=== PATIENT | female | born 1960 | race Caucasian/White ===

== ENCOUNTER 2023-11-12 12:39 | Outpatient (CLI) | payer MEDICARE, SELFPAY ==
[2023-11-12 18:18] LABS: Basophils Absolute Auto 0.1 K/mm3 (0.0-0.1); Basophils Percent Auto 0.7 % (0.2-1.2); Eosinophils Absolute Auto 0.2 K/mm3 (0-0.3); Eosinophils Percent Auto 1.8 % (0-4.4); Hematocrit 47.5 % (37.0-47.0); Hemoglobin 15.1 g/dL (12.0-15.0); Immature Granulocyte Absolute 0.02 K/mm3 (0.00-0.031); Immature Granulocyte Percent A 0.2 % (0-0.5); Lymphocytes Absolute Auto 2.31 K/mm3 (0.9-3.2); Lymphocytes Percent Auto 27.2 % (18.3-44.2); Mean Corpuscular HGB Conc 31.8 g/dl (32-36); Mean Corpuscular Hemoglobin 29.4 pg (26-34); Mean Corpuscular Volume 92.4 fl (80-100); Mean Platelet Volume 9.1 fl (7.4-10.4); Monocytes Absolute Auto 0.8 K/mm3 (0.1-0.6); Monocytes Percent Auto 9.2 % (2.6-8.5); Neutrophils Absolute Auto 5.2 K/mm3 (1.3-6.7); Neutrophils Percent Auto 60.9 % (45.5-73.1); Platelet Count Result 383 k/mm3 (150-375); Red Blood Count 5.14 M/mm3 (4.2-5.4); White Blood Count 8.5 K/mm3 (4.5-10.0)
[2023-11-12 18:43] LABS: Alanine Aminotransferase 11 U/L (6-35); Albumin Level 4.5 g/dL (3.5-5.1); Alkaline Phosphatase 86 U/L (38-126); Anion Gap 4 mmol/L (8-16); Aspartate Amino Transferase 37 U/L (14-36); Bilirubin,Total 0.4 mg/dL (0.2-1.3); Blood Urea Nitrogen 7 mg/dL (7-17); Calcium 9.5 mg/dL (8.4-10.2); Carbon Dioxide 30 mmol/L (22-30); Chloride 102 mmol/L (98-107); Cholesterol 249 mg/dL (0-200); Estimated Glomerular Filt Rate > 60; Glucose 91 mg/dL (65-110); HDL Direct 53 mg/dL; Potassium 4.3 mmol/L (3.4-5.0); Sodium 136 mmol/L (137-145); Triglycerides 159 mg/dL (<150)
[2023-11-12 18:54] LABS: LDL Cholesterol Direct 153 mg/dL
== END 2023-11-12 12:40 | disposition home or self-care (01) ==
LOC: ANHGOSHLAB 12:41
PROVIDERS: PCP Emergency Medicine; Visit Provider Emergency Medicine
DX: I10 Essential (primary) hypertension (principal); Z72.0 Tobacco use
CPT/HCPCS: 36415; 80053; 80061; 85025

== ENCOUNTER 2023-12-06 12:59 | Outpatient (CLI) | payer MEDICARE, SELFPAY ==
--- NOTE | ~2023-12-06 | MMUS_ITS ---
EXAMINATION: MM diagnostic karan BI w tomasa, US breast RT limited HISTORY: Right breast lump and inframammary fold TECHNIQUE: Additional 3-D tomosynthesis images of the breasts were performed and synthetic 2-D images were generated. CAD analysis was submitted and interpreted. High resolution Limited right breast ult rasound was performed. COMPARISON: No prior studies for comparison. BREAST PARENCHYMAL COMPOSITION: Not dense: There are scattered areas of fibroglandular density. FINDINGS: MAMMOGRAPHIC FINDINGS: There is a mass at the inframammary fold inferiorly in the right breast on MLO view and mediolateral view. There is thickening of the adjacent skin with traction of the skin surface. ULTRASOUND: Limited right breast ultrasound: In the area of palpable concern at 5:00, 7 cm from the nipple is a s lightly irregular shaped hypoechoic mass measuring 1.7 x 1.7 x 1.4 cm with internal vascularity and m ixed posterior attenuation. IMPRESSION: 1. Abnormal 1.7 cm right breast mass at 5:00, 6 cm from the nipple corresponding to the mammographic and palpable abnormality. 2. Ultrasound-guided right breast biopsy recommended. BI-RADS category 4, suspicious findings. Reviewed, dictated and finalized at location A. IMPRESSION: 1. Abnormal 1.7 cm right breast mass at 5:00, 6 cm from the nipple correspondin g to the mammographic and palpable abnormality. 2. Ultrasound-guided right breast biopsy recommended. BI-RADS category 4, suspicious findings.
== END 2023-12-06 13:00 | disposition home or self-care (01) ==
LOC: ANHIMG 13:00
PROVIDERS: PCP Emergency Medicine; Visit Provider Emergency Medicine
DX: N63.14 Unspecified lump in the right breast, lower inner quadrant (principal); R92.8 Other abnormal and inconclusive findings on diagnostic imaging of breast
CPT/HCPCS: 76642; 77062; 77066; G0279

== ENCOUNTER 2023-12-09 10:01 | Outpatient (CLI) | payer MEDICARE, SELFPAY ==
--- NOTE | ~2023-12-09 | CT_ITS ---
CT Scan of the Chest without Contrast: Clinical Indication: Lung cancer screening, nicotine dependence Technique: Contiguous sections were acquired throughout the chest without intravenous contrast. Dose reduction technique was used on this scan by utilizing automated exposure control and iterative recon struction technique. The dose-length product (DLP) was 79.41 mGy-cm. Findings: There is no evidence of any significant mediastinal, hilar or axillary lymphadenopathy. The mediastin al soft tissues appear normal. Minimal pericardial effusion noted. No pleural effusions. There is a 1.8 cm nodule in the left upper lobe (axial image 26). Right lung clear. Images through the upper abdomen reveal no abnormalities. Impression: Lung RADS 4B: Very suspicious. Tissue sampling of 1.8 cm left upper lobe pulmonary nodule recommended to establish histologic diagnosis. Case discussed with nurse logan Vega at the time of this reading. Reviewed, dictated and finalized at [facility]. Impression: Lung RADS 4B: Very suspicious. Tissue sampling of 1.8 cm left upper lobe pulmon josselyn nodule recommended to establish histologic diagnosis. Case discussed with nurse logan Vega at the time of this reading.
== END 2023-12-09 10:02 ==
PROVIDERS: PCP Emergency Medicine; Visit Provider Emergency Medicine
DX: Z12.2 Encounter for screening for malignant neoplasm of respiratory organs (principal); Z87.891 Personal history of nicotine dependence
CPT/HCPCS: 71271

== ENCOUNTER → 2023-12-10 11:38 | Outpatient (REF) | payer MEDICARE, SELFPAY | LOC: ANHLAB 11:38 | PROVIDERS: PCP Emergency Medicine; Visit Provider Surgery | DX: N63.10 Unspecified lump in the right breast, unspecified quadrant (principal) | CPT/HCPCS: 88305; 88342; 88360 ==

== ENCOUNTER 2023-12-19 09:03 | Outpatient (CLI) | payer MEDICARE, SELFPAY ==
[2023-12-13 14:21] VITALS: BMI 25.0
--- NOTE | 2023-12-13 14:22 | PC.NURSE ---
Pre Radiology instructions Report to the outpatient [facility] on date __12/19/23___ at time __0900 for procedure Time: _1100__ YOU MAY BE MONITORED AT HOSPITAL FOR UP TO 4 HOURS AFTER YOUR PROCEDURE. A visitor will be allowed to accompany the patient into the hospital. You and your visitor will be asked to self-screen and do not enter if you have any COVID symptoms. A mask is OPTIONAL within the hospital. Patients are to have no food or drink 6 hours prior to procedure time (0500 AM) Driving will be restricted after the procedure, you must have a person to drive you home. Labs will be drawn in preop area and once reviewed, you will be taken to radiology area for procedure. When the procedure is completed, you will be taken to outpatient where you will be monitored for several hours. You may have one visitor in this area. Other than holding anti-coagulants, patient may take other medication(s) as scheduled. Prior to your appointment date patients are instructed to hold anti-coagulants after discussing with ordering provider to stop. If unable to discontinue anti-coagulants please notify radiologist. ? No aspirin or warfarin (Coumadin) for 7 days prior to the procedure. ? No clopidogrel (Plavix), ticagrelor (Brilinta), prasugrel (Effient) or dabigatran (Pradaxa) for 5 days prior to the procedure. ? No rivaroxaban (Xarelto), apixaban (Eliquis), dipyridamole (Aggrenox or Persantine) or cilostazol (Pletal) for 2 days prior to the procedure. Medications to discontinue per physician: ___N/A Date to take last dose: Please leave all valuables, including medications, at home the day of procedure. The hospital will not accept responsibility for valuables. Wear comfortable, loose fitting clothing.? Follow any additional instructions given to you from ordering provider. Telephone instructions given to _PT'S GRANDDAUGHTER - (DOUG) _and asked if any additional questions and then verbalized understanding. Patient advised to call scheduling provider office or registration scheduling [phone] if any additional questions.
[2023-12-19] VITALS (11 sets, daily range): BP systolic 107–149; BP diastolic 61–94; PULSE 59–77; RESP 14–16; TEMP 36.8; O2SAT 95–100
--- NOTE | ~2023-12-19 | XR_ITS ---
XR chest 1V portable 12/19/2023 15:01 Indication: Post image guided lung biopsy Procedure: AP portable chest Comparison: Comparison to multiple prior studies sequentially, with oldest reviewed study dated 12/18. Findings: Left upper lobe mass overlies the left hilum, consistent with previously biopsied abnormali ty. No pneumothorax identified post biopsy. No acute focal airspace disease. Healed right rib fractur es. Impression: 1: No acute cardiopulmonary disease. No significant change. Reviewed, dictated and finalized at location B. Impression: 1: No acute cardiopulmonary disease. No significant change.
--- NOTE | ~2023-12-19 | XR_ITS ---
EXAMINATION: XR chest 1V portable 12/19/2023 13:17 INDICATION: Post lung biopsy. PROCEDURE: AP portable chest COMPARISON: 12/19/2023 FINDINGS: The lungs are clear. The cardiomediastinal silhouette is within normal limits. There are no pleural effusions. There is no pneumothorax suspected. IMPRESSION: 1: NO ACUTE CARDIOPULMONARY DISEASE. Reviewed, dictated and finalized at location B.
--- NOTE | ~2023-12-19 | CT_ITS ---
EXAMINATION: CT biopsy lung w/imaging DATE: 12/19/2023 12:03 INDICATION: Left upper lobe nodule TECHNIQUE: The procedure including the risks and benefits was discussed with the patient. Risks discu ssed included infection, approximately 1/20 risk of symptomatic hemorrhage beyond mild hemoptysis, ap proximately 1/3 risk of pneumothorax, and approximately 1/10 risk of pneumothorax severe enough to wa rrant chest tube placement. The patient understood the risks and agreed to proceed. The patient was p laced prone. The skin overlying the left posterior upper thorax was prepped and draped in sterile fa shion. Anesthetic was administered with 1% lidocaine subcutaneously. A 19 gauge outer needle was ad vanced under CT guidance to the lesion of interest. A 20 gauge core biopsy needle was then used to ob tain 3 core biopsy specimens. The needle was removed and the entry site was cleaned and dressed. The re were no immediate complications. The dose-length product was 160.27 mGy-cm. FINDINGS: CT images demonstrate the outer needle tip adjacent to an the biopsy needle extending throu gh a 1.9 cm left upper lobe nodule. IMPRESSION: 1. Successful CT-guided biopsy of a 1.9 cm left upper lobe nodule. Reviewed, dictated and finalized at location A.
--- NOTE | ~2023-12-19 | XR_ITS ---
EXAMINATION: XR chest 1V DATE: 12/19/2023 12:05 INDICATION: Status post percutaneous left upper lobe biopsy TECHNIQUE: frontal view of the chest was obtained. COMPARISON: CT dated 12/09/2023 FINDINGS: The biopsied left upper lobe mass projects partially over the aortic arch. No other airspace opacitie s, pulmonary edema, pleural effusion or pneumothorax. The cardiomediastinal silhouette is normal. A f ew old healed bilateral rib fractures. IMPRESSION: 1. No pneumothorax or pleural effusion post percutaneous biopsy of a left upper lobe mass which is co ncerning for primary bronchogenic carcinoma. Reviewed, dictated and finalized at location A. IMPRESSION: 1. No pneumothorax or pleural effusion post percutaneous biopsy of a left upper lobe mass which is concerning for primary bronchogenic carcinoma.
[2023-12-19 09:57] LABS: Mean Platelet Volume 8.8 fl (7.4-10.4); Platelet Count Result 384 k/mm3 (150-375)
[2023-12-19 10:09] LABS: INR 0.9; Prothrombin Time 12.4 Seconds (11.1-14.7)
== END 2023-12-19 15:45 | disposition home or self-care (01) ==
PROVIDERS: PCP Emergency Medicine; Referring Provider Surgery; Visit Provider Radiology Diagnostic Radiology
PROC: BB24ZZZ Computerized Tomography (CT Scan) of Bilateral Lungs (ICD-10-PCS; CPT 32408; principal; 2023-12-19 11:00)
DX: R91.8 Other nonspecific abnormal finding of lung field (principal); C34.12 Malignant neoplasm of upper lobe, left bronchus or lung; Z01.818 Encounter for other preprocedural examination
CPT/HCPCS: 32408; 36415; 71045; 85049; 85610; 88305

== ENCOUNTER 2023-12-25 01:24 | Day surgery (SDC) | payer MEDICARE, SELFPAY ==
--- NOTE | 2023-12-23 13:08 | PC.NURSE ---
Report to the Outpatient Waiting Room, entrance under the green pavilion located off [facility], at time __1000 on date _12/25/23 . Planned Procedure Time:1200 . Time changes happen often and if your time is changed the preop area will call you the afternoon before. - You and your visitor will be asked to self-screen and do not enter if you have any COVID symptoms. - A mask is optional within the hospital at this time. Patients may have clear liquids (water, carbonated beverages, clear teas, apple juice) until 3 hours prior to surgery( 9:00AM) with a maximum of 20 ounces. - No food from midnight until time of surgery - Infants may have breast milk until 4 hours before surgery, formula 6 hours prior to surgery. - Children will be allowed to drink immediately following surgery. If applicable, please bring a bottle or sippy cup to assist with drinking. Juice, water, soda, and popsicles are readily available. For infants on formula, please bring formula the day of surgery. Pacifiers are allowed. Take the following medications with a SIP of water the morning of surgery: ____NONE DO NOT STOP ANY OF YOUR OTHER PRESCRIPTION MEDICATIONS PRIOR TO SURGERY ?EXCEPT THE FOLLOWING Medications to discontinue per physician NONE Date to take last dose Please no make-up, nail ukrainian, hairspray, perfume, deodorant, or body powder the day of surgery. No jewelry (including any body piercings) or valuables the day of surgery, leave them at home. Please take a shower or bath the night before, or the morning of, surgery with an antibacterial soap. Wear comfortable, loose fitting clothing. Children are encouraged to wear pajamas. - Jewelry must be removed prior to entering the operating room. Rings and piercings that are not removed may be cut off. - The hospital will not accept responsibility for valuables. - Please leave all valuables, including medications, at home the day of surgery. If you are going home after surgery, a licensed telephone directory distributor driver must drive you home. - NO public transportation without another adult if you receive anesthesia. - We recommend that an adult stay with you for 24 hours following discharge. - We also recommend that you do not drive, make important decision, drink alcoholic beverages, or take any drugs that were not prescribed by your health care provider for at least 24 hours after your discharge time. For Pediatric surgeries, we recommend two adults accompany the child home. Follow any additional instructions given to you from your surgeon. If you or anyone in your household have experienced Covid symptoms in the past week, please notify your surgeon or the nurse liaison at the phone number below for possible testing. Telephone instructions given to __GRANDDAUGHTER DOUG CROWE and asked if any additional questions and then verbalized understanding. Patient advised to call surgeon office or pre surgery nurse liaison [phone] if any additional questions.
[2023-12-23 13:12] VITALS: BMI 24.9
--- NOTE | ~2023-12-25 | XR_ITS ---
EXAMINATION: XR fl guide central line place DATE: 12/25/2023 12:43 INDICATION: Port placement. TECHNIQUE: A single intraoperative fluoroscopic view of the chest was obtained. I was not present. Fl uoroscopy exposure time was 12 seconds. COMPARISON: Chest single view 12/19/2023 FINDINGS: There is a right internal jugular port with tip in the superior vena cava. There are old he aled right rib fractures. IMPRESSION: 1. Poor tip in the superior vena cava. Reviewed, dictated and finalized at location A.
--- NOTE | ~2023-12-25 | XR_ITS ---
EXAMINATION: XR chest port-a-cath/central DATE: 12/25/2023 12:59 INDICATION: Port placement. TECHNIQUE: A single frontal view of the chest was obtained. COMPARISON: Chest view 12/19/2023 FINDINGS: There is no pneumonia, pleural effusion, or pneumothorax. The heart size is normal. There a re old healed right rib fractures. There is a right internal jugular port with tip in superior vena c elma. IMPRESSION: 1. Port tip in superior vena cava. Reviewed, dictated and finalized at location A.
--- NOTE | 2023-12-25 09:22 | PM.IMHP ---
H&P: HPI History of Present Illness Date/Time: 12/25/23 09:22 Chief Complaint: metastatic left lung cancer Narrative: Pt is a 63 y/o F presenting to hospital for port placement. Pt c recently dx'd L lung cancer c known mets to R breast, lymph nodes. Pt is still undergoing workup including PET and oncology appt this wk. Pt denies any previous central venous catheterization. Review of Systems Review of Systems: All systems reviewed & are unremarkable except as noted in HPI and below PMFSH Past Medical History Medical History Appendix abscess Asthma Gallstone Surgical History Surgical History H/O hysterectomy for benign disease Family History Family History Father Alcoholism Mother Cirrhosis Sibling Cancer Diabetes mellitus Depression Heart disease Social History Social History Social History: caffeine- coffee 10 tea 1/2 gallon soda 1 can Smoking packs per day: 1 Smoking cigarettes per day: 20.0 Years smoked: 50 Smoking pack-years: 50.00 Smoking status: Former smoker Tobacco type: cigarettes Second hand tobacco smoke exposure: No Alcohol intake: never Substance use: current Substance use type: marijuana Last use: 12/22/23 Do You Feel Safe in your Home?: Yes Lack of Transportation: No Lack of Food: Never True Current Housing: I Have Housing Concerned About Future Housing: No Difficulty Paying Gas/Electric Bills: No Difficulty Paying for Meds: No Currently Unemployed: No Education: High School Diploma/GED Difficulty w/ Childcare or Family Care: No Living arrangements: with family Occupation/Education: retired Gender identity (if verbalized by the patient): Female Sexual Orientation (if Verbalized by the Patient): Straight or Heterosexual Spiritual care concerns: No Meds Home Medications and Allergies Home Medications Medication Instructions Recorded Confirmed Type losartan 100 mg tablet 100 mg PO DAILY #90 tabs 12/04/23 12/24/23 Rx aspirin 81 mg tablet,delayed 81 mg PO HS 12/23/23 12/24/23 History release (Adult Low Dose Aspirin) Allergies Allergy/AdvReac Type Severity Reaction Status Date / Time No Known Allergies Allergy Verified 12/24/23 15:27 Exam Const: General: cooperative, comfortable and no acute distress HENMT: Head: normal to inspection, normocephalic and atraumatic Eyes: General: appearance normal, both eyes and all related structures Neck: Neck: normal visual inspection and full ROM Resp: Auscultation: diminished lung sounds Cardio: Rate: regular rate Rhythm: regular rhythm GI: Inspection: normal to inspection and non-distended GI Palp: No abdominal tenderness and Yes Soft to palpation Assessment and Plan Assessment and plan (1) Adenocarcinoma of left lung, stage 4: Code(s): C34.92 - Malignant neoplasm of unspecified part of left bronchus or lung Status: Acute Assessment and Plan: will setup for port placement, will need PET and oncology f/u
[2023-12-25 11:02] VITALS: BMI 24.7
[2023-12-25 11:05] VITALS: BP 156/71; PULSE 57; RESP 16; TEMP 36.1; O2SAT 98
[2023-12-25] MEDS: LACTATED RINGERS 1,000 ML 30 ML IV CONT (11:20)
--- NOTE | 2023-12-25 11:28 | WPDHPUPDATE1 ---
History and Physical Update Update Date/Time: 12/25/23 11:28 History and Physical has been reviewed, including an updated exam of the patient. There are NO changes in the patient's condition. Risks, benefits, and alternatives have been discussed and questions answered. Patient agrees to proceed with procedure.
[2023-12-25] MEDS: KETOROLAC 15 MG/ML VIAL (*BKC) IV PUSH (11:32)
--- NOTE | 2023-12-25 11:35 | P.PNAN_ITS ---
Anes - Initial Pre Proc Eval Procedure: Operation Date: 12/25/23 12:00 Proposed Procedures p Insertion Corinne Cath - Leila Forman MD Date/Time: 12/25/23 11:35 Surgeon: Leila Forman MD Pre Op Diagnosis: malignant neoplasm of lung unspecified laterality Patient Data Age: 63 Gender: F Height: 1.55 m Weight: 59.9 kg Allergies Allergy/AdvReac Type Severity Reaction Status Date / Time No Known Allergies Allergy Verified 12/25/23 11:33 Home Medications Medication Instructions Recorded Confirmed Type losartan 100 mg tablet 100 mg PO DAILY #90 tabs 12/04/23 12/24/23 Rx aspirin 81 mg tablet,delayed 81 mg PO HS 12/23/23 12/24/23 History release (Adult Low Dose Aspirin) Laboratory Tests 12/25/23 11:23 APTT Pending Patient hx anesthesia problems: none Family hx anesthesia problems: none Results Review: All pre-operative results and documents have been reviewed as part of the pre- operative evaluation. [facility] Past Medical History Medical History Appendix abscess Asthma Gallstone Surgical History Surgical History H/O hysterectomy for benign disease Family History Family History Father Alcoholism Mother Cirrhosis Sibling Cancer Diabetes mellitus Depression Heart disease Social History Social History Social History: caffeine- coffee 10 tea 1/2 gallon soda 1 can Smoking packs per day: 1 Smoking cigarettes per day: 20.0 Years smoked: 50 Smoking pack-years: 50.00 Smoking status: Former smoker Tobacco type: cigarettes Second hand tobacco smoke exposure: No Alcohol intake: never Substance use: current Substance use type: marijuana Last use: 12/22/23 Do You Feel Safe in your Home?: Yes Lack of Transportation: No Lack of Food: Never True Current Housing: I Have Housing Concerned About Future Housing: No Difficulty Paying Gas/Electric Bills: No Difficulty Paying for Meds: No Currently Unemployed: No Education: High School Diploma/GED Difficulty w/ Childcare or Family Care: No Living arrangements: with family Occupation/Education: retired Gender identity (if verbalized by the patient): Female Sexual Orientation (if Verbalized by the Patient): Straight or Heterosexual Spiritual care concerns: No Anes - Eval Final PreProcedure Day of Procedure 12/25/23 11:35 Patient weight: normal Heart: regular rate and rhythm Lungs: clear to auscultation Airway: Mallampati scale class II Neurological: alert and oriented Last oral intake: >/= 8 hours ASA classification: III Emergent: no Anesthetic plan: proceed Anesthesia type and monitoring: general GIVS and standard monitoring Results Review: All pre-operative results and documents have been reviewed as part of the pre- operative evaluation. Informed Consent: The patient's anesthetic plan and its attendant risks and benefits were discussed with the patient/family/POA. Questions were solicited and answers provided to the satisfaction of the patient/fa
[2023-12-25 11:47] LABS: Partial Thromboplastin Time 27.7 Seconds (22.3-36.8)
[2023-12-25] MEDS: ceFAZolin 2 GM/D5W 50 ML 2 GM/50 ML BAG IVPB (11:59)
[2023-12-25] MEDS: HEPARIN SODIUM 5,000 UNITS/ML VIAL 5000 UNITS IRRIGATION (12:29)
[2023-12-25] MEDS: HEPARIN SODIUM, PORCINE 10,000 UNITS/10 ML VIAL 5000 UNITS IV PUSH (12:30)
[2023-12-25] MEDS: BUPIVACAINE/EPINEPHRINE 0.5% 30 ML VIAL 20 ML INFILTRATE (12:32)
--- NOTE | 2023-12-25 12:42 | P.OP_ITS ---
Procedure Note - Detailed Date of Procedure 12/25/23 Pre-op Diagnosis Metastatic left lung cancer Post-op Diagnosis Same Procedure Performed placement of right internal jugular venous access device under both ultrasound and fluroscopic guidance Surgeon Leila Forman MD Anesthesia MAC and Local Indications 63-year-old female presenting with metastatic left lung cancer needing access for chemotherapy Findings 1st stick right IJ under ultrasound guidance Description of Procedure Patient was brought into the operating room and placed in the supine position. After adequate induction of mac anesthesia, the patient was prepped and draped in normal sterile fashion. Time-out was then done to verify the patient's identity, as well as the procedure being performed. I used the ultrasound to gain access into the right internal jugular vein. Once access was gained, I placed the guidewire in the vein and confirmed proper positioning using fluoroscopy. I then locally anesthetized an area in the right chest. I then made an incision including making a subcutaneous pocket inferiorly to allow placement of the port itself. I proceeded to tunnel the catheter from the chest to the right neck insertion site. I then placed a dilating sheath over the guidewire into the right internal jugular vein via sterile Seldinger technique. This was once again done and confirmed via fluoroscopic guidance. I then re moved the dilator and the guidewire, now just leaving the sheath in the vein. I then fed the previously flushed catheter into the right internal jugular vein under fluoroscopic guidance. At approximately 22 cm, the catheter was noted to be near the atrial caval junction. I then peeled away the sheath, now just leaving the catheter in the vein. I then was able to easily draw and flush from the catheter. The catheter was cut to fit and attached to the port itself. The port was placed into the previously made subcutaneous pocket and sutured in with 0 Ethibond suture. Final fluoroscopic view showed the termination of the catheter at the atrial caval junction with a nice smooth curvature back to the port itself. I was able to gain access to the port with a Cramer needle and was able to easily draw and flush from the port. I then flushed 4 cc of a final heparin flush into the port. The incision was closed with 3 0 Vicryl suture in the subcutaneous tissue and the skin was closed with 4 O Monocryl subcuticular suture. Dermabond was then placed on wound. The patient tolerated the procedure well and will be sent to the recovery room in stable condition. Implants RIJ VAD Estimated Blood Loss 10 Pathology None sent Complications No immediate complications Condition Stable Disposition PACU [facility] Billing Surgery - Charge Forward: Surgery Billing
[2023-12-25 12:47] VITALS: BP 119/57; PULSE 53; RESP 12; O2SAT 98
[2023-12-25 13:20] VITALS: BP 136/57; PULSE 44; O2SAT 100
[2023-12-25 13:50] VITALS: BP 134/78; PULSE 51
== END 2023-12-25 14:06 | disposition home or self-care (01) ==
PROVIDERS: PCP Emergency Medicine; Visit Provider Surgery
PROC: (CPT 36561; principal; 2023-12-25 12:00)
DX: C34.92 Malignant neoplasm of unspecified part of left bronchus or lung (principal); C77.9 Secondary and unspecified malignant neoplasm of lymph node, unspecified; C79.81 Secondary malignant neoplasm of breast; Z87.891 Personal history of nicotine dependence; Z79.82 Long term (current) use of aspirin; F12.90 Cannabis use, unspecified, uncomplicated
CPT/HCPCS: 36561; 32408; 36415; 71045; 77001; 85049; 85610; 85730; 88305; C1788; J0690; J1644; J1885; J2250; J2704; J3010; J7030; J7120

== ENCOUNTER 2023-12-26 08:07 | Outpatient (CLI) | payer MEDICARE, SELFPAY ==
--- NOTE | ~2023-12-26 | MR_ITS ---
MRI of the brain Clinical History: Lung cancer Technique: Axial and sagittal T1-weighted images were acquired. These were followed by axial T2-weigh hilary, diffusion weighted, gradient, and FLAIR images. Following intravenous administration of 12 cc Mu ltiHance gadolinium, T1-weighted fat-sat imaging was performed in the axial and coronal planes. Findings: There is a 1 cm probable intra-axial enhancing mass at the superior left frontal lobe, para median location, mild surrounding vasogenic edema (coronal postcontrast image 10). No other significa nt abnormality seen in the remainder of the brain. No acute infarct or intracranial hemorrhage. Ventricles and subarachnoid spaces are unremarkable. Orbits are unremarkable. Paranasal sinuses and m astoid air cells are clear. Major intracranial flow voids are intact. Sagittal midline structures are intact. IMPRESSION: 1 cm probable metastasis in the superior paramedian left frontal lobe, as detailed above. Reviewed, dictated and finalized at [facility]. IMPRESSION: 1 cm probable metastasis in the superior paramedian left frontal lobe, as juan r led above.
--- NOTE | ~2023-12-26 | PE_ITS ---
EXAMINATION: PET skull to mid thigh DATE: 12/26/2023 11:11 INDICATION: Malignant neoplasm of lung TECHNIQUE: Blood glucose level was 95 mg/dL. 9.405 mCi of 18-fluorodeoxyglucose (18-FDG) was administ ered i.v. Low dose computed tomography (CT) images were acquired from the base of the brain to the pr oximal thighs for attenuation correction and anatomic localization. Positron emission tomography (PET ) images were acquired in the same distribution beginning 47 minutes after injection. Images includin g fused PET/CT images were reconstructed in axial, coronal, and sagittal planes. Automated exposure c ontrol technique was employed. The dose-length product was 677.29mGy-cm. COMPARISON: None FINDINGS: Head/neck: There is symmetric increased activity in the oral cavity and ocular muscles without CT correlate, lik ally physiologic. No pathologically enlarged cervical lymphadenopathy. Chest: Right internal jugular central venous port catheter with distal tip at the caudal superior vena cava. 2.0 cm FDG avid mass in the posterior segment of the left upper lobe with maximal SUV of 12.0. There is also increased FDG uptake with maximal SUV of 10.0 at the left hilum likely reflecting metastatic lymphadenopathy which is unable to be distinguished from the left hilar vasculature on noncontrast i maging. No other suspicious pulmonary nodules, pneumonia, pulmonary edema or pleural effusion. Heart size is normal. Atherosclerotic coronary artery calcific lesions. No pericardial effusion. No patholo gically enlarged or FDG avid mediastinal lymphadenopathy. 2.3 x 2.0 cm FDG avid subcutaneous mass with spiculated margins at the inner inferior quadrant of the right breast consistent with biopsy proven malignancy for which metastases from a lung primary was f avored on pathology report. There is increased FDG uptake associated with multiple right axillary lym ph nodes the largest measuring 2.0 x 1.2 cm with maximal SUV of 10.4. There is an additional 8 mm FDG avid nodule in the deeper tissues of the outer inferior quadrant of the left breast with maximal SUV of 4.5. Abdomen/pelvis/proximal thighs: 3.4 cm peripherally FDG avid, centrally photopenic and likely necrotic mass in segment IVb of the brendan er with maximal SUV of 7.9. There is an additional FDG avid mass measuring approximately 4 ccm extend ing between the region of the head of the pancreas and the dileep hepatis with maximal SUV of 12.2 the margins of which are also unable to be clearly distinguished from the surrounding vasculature, pancr eas and duodenum on noncontrast imaging. There are couple FDG avid masses in the spleen measuring apolinar roximately 1.5 cm in diameter on PET imaging but which are without correlate on the CT imaging. Bilat eral FDG avid adrenal masses measuring 1.7 cm with maximal SUV of 7.4 on the left and 1 cm with maxim al SUV of 5.5 on the right. Physiologic renal accumulation and excretion of FDG activity in the kidne ys, bladder and along portions of ureters. The gallbladder is not visualized and likely surgically a bsent. . Mild to moderate uptake scattered throughout the bowels without radiologic correlate, also l ikely physiologic. No other abnormal foci of increased FDG uptake or pathologically enlarged lymphade nopathy in the abdomen, pelvis or proximal thighs. Musculoskeletal: There are a few FDG avid bone lesions including at the base of the dens with maximal SUV of 11.1 and at T1 with maximal SUV of 7.7 and corresponding lytic lesion with likely pathologic compression fract ure on CT. Additional chronic T3 compression fracture without increased FDG uptake.. IMPRESSION: 1. FDG avid mass in the left upper lobe which based upon pathology from a recent percutaneous biopsy was favored to represent a primary lung cancer. 2. Multiple additional FDG avid masses including at the bilateral breasts, liver, spleen and bilatera l adrenal glands, dileep hepatis and a
[2023-12-26 09:39] LABS: Glucose Point of Care 95 mg/dl (65-105)
== END 2023-12-26 08:08 | disposition home or self-care (01) ==
PROVIDERS: PCP Emergency Medicine; Visit Provider Internal Medicine Hematology & Oncology
DX: C34.90 Malignant neoplasm of unspecified part of unspecified bronchus or lung (principal); R91.8 Other nonspecific abnormal finding of lung field
CPT/HCPCS: 70553; 78815; A9552; A9577

== ENCOUNTER 2024-03-06 08:39 | Outpatient (CLI) | payer MEDICARE, SELFPAY ==
[2024-03-06 09:12] LABS: Hemoglobin A1C 6.2 % (<5.7)
== END 2024-03-06 08:40 | disposition home or self-care (01) ==
LOC: ANHLAB 08:41
PROVIDERS: PCP Emergency Medicine; Visit Provider Emergency Medicine
DX: R73.01 Impaired fasting glucose (principal)
CPT/HCPCS: 36415; 83036

== ENCOUNTER 2024-03-18 10:50 | Outpatient (CLI) | payer MEDICARE, SELFPAY ==
--- NOTE | ~2024-03-18 | NM_ITS ---
EXAMINATION: NM bone scan whole body DATE: 03/18/2024 14:47 INDICATION: Malignant neoplasm of the lung TECHNIQUE: 23.2 mCi Tc-99m HDP was administered intravenously. Delayed whole-body scintigrams were o btained. COMPARISON: CT dated 03/18/2024 FINDINGS: Subtle uptake along a few of the left posterior ribs and linear pattern corresponding to several of t he bilateral old posterior rib fractures. Small focus of likely enthesopathic uptake at the posterior tuberosity of the right calcaneus. No other suspicious foci of abnormal bone uptake to suggest metas tatic disease. IMPRESSION: 1. No evident metastatic disease. Reviewed, dictated and finalized at location A.
--- NOTE | ~2024-03-18 | CT_ITS ---
CT chest abdomen pelvis w con Ordering provider: Abdirashid Acosta MD History: 63 years Female with . MALIGNANT NEOPLASM OF LUNG . Comparison: December 19, 2023 Technique: CT chest with IV contrast. CT abdomen and pelvis CT abdomen and pelvis with IV and with or al contrast. Radiation reduction technique utilized. DLP is 503.26 mGy-cm. 100 ML Omnipaque 350 was g iven IV. FINDINGS: Right Port-A-Cath with the tip in the vena cava. --VISUALIZED THORACIC INLET: Normal. --MEDIASTINUM: Aorta/coronary arteries: Mild atheromatous disease. Heart/other: The heart is not enlarged. Trace of pericardial effusion. Lymph nodes: No mediastinal or hilar adenopathy. Small paratracheal lymph node measuring 8 mm is seen . Other: Normal. --LUNGS: 10 mm left upper lobe mass seen posteriorly. No infiltrates or effusions. No pneumothorax. --MUSCULOSKELETAL: Soft tissues: The superficial soft tissues are normal. Bones: Age appropriate degenerative changes of the spine. No suspicious bony lytic or sclerotic lesio ns. Healing fracture is seen in the right fourth, fifth, sixth and seventh ribs and left 6th,th 7 and eig hth ribs. ABDOMEN/PELVIS: --MUSCULOSKELETAL: Bones: Age appropriate degenerative changes of the spine. No suspicious bony lytic or sclerotic lesio ns. Superficial soft tissues: The superficial soft tissues are normal. --UPPER ABDOMINAL ORGANS: Liver: Normal. Hypodensity seen in the right lobe of the liver which measures 2.2 x 1.6 cm which is m ost likely metastatic. Follow-up and further evaluation advised. Gallbladder: Normal. Spleen: Hypodensity measuring 7 mm. Stomach/duodenum: Normal. Pancreas: Slightly prominent pancreatic duct. Adrenals: Normal. Kidneys: Small cyst in the left kidney upper pole. --PELVIC ORGANS: The bladder is normal. No bladder stones. --BOWEL AND MESENTERY: Colon: No evidence of diverticulitis. The appendix is not demonstrated. Small Bowel: Normal. No obstruction. Peritoneum/mesentery: No free air or free fluid. No mesenteric lymphadenopathy. --RETROPERITONEUM: Mild atheromatous disease of the abdominal aorta. No retroperitoneal lymphadenop athy. IMPRESSION: CHEST: 1. Mass in the left upper lobe measuring about 1 cm. 2. Trace of pericardial effusion. 3. No acute cardiopulmonary pathology. ABDOMEN/PELVIS: 1. No acute abdominal process with no evidence of appendicitis, diverticulitis or intestinal obstruc tion. 2. Hypodensity in the right lobe of the liver.. Further evaluation advised. 3. Hypodensity in the spleen. Follow-up advised. Reviewed, dictated and finalized at location A. IMPRESSION: CHEST: 1. Mass in the left upper lobe measuring about 1 cm. 2. Trace of pericardial effusion. 3. No acute cardiopulmonary pathology. ABDOMEN/PELVIS: 1. No acute abdominal process with no evidence of appendicitis, diverticulitis or intestinal obstruction. 2. Hypodensity in the right lobe of the liver.. Further evaluation advised. 3. Hypodensity in the spleen. Follow-up advised.
== END 2024-03-18 10:51 | disposition home or self-care (01) ==
LOC: ANHIMG 10:55
PROVIDERS: PCP Emergency Medicine; Visit Provider Internal Medicine Hematology & Oncology
DX: C34.90 Malignant neoplasm of unspecified part of unspecified bronchus or lung (principal)
CPT/HCPCS: 71260; 74177; 78306; A9503; Q9967

== ENCOUNTER 2024-04-14 09:29 | Outpatient (CLI) | payer MEDICARE, SELFPAY ==
--- NOTE | ~2024-04-14 | MR_ITS ---
EXAMINATION: MR brain/brain stem wo/w con DATE: 04/14/2024 10:12 INDICATION: Metastatic lung cancer. TECHNIQUE: Magnetic resonance imaging (MRI) of the brain and brainstem was performed without and with 13 mL MultiHance intravenous contrast. COMPARISON: Brain MRI 12/26/2023 FINDINGS: There are small acute infarcts in the right frontal parietal region and left frontal and pa rietal lobes. There is a 9 mm enhancing mass in left frontal lobe. There is a punctate old microhemor rhage in right cerebellum. 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 There are s cattered areas of nonspecific increased T2-weighted signal intensity in the cerebral white matter, wh ich is within normal limits for the patient's age. The ventricles are normal in size. The mastoid air cells are normal. There is mild mucosal thickening in the ethmoid sinuses. The orbits are normal. IMPRESSION: 1. 9 mm enhancing mass in left frontal lobe, decreased from 13 mm on 12/26/2023, consistent with metast atic disease. 2. Small acute infarcts in the right frontoparietal region and left frontal and parietal lobes. Reviewed, dictated and finalized at location A. IMPRESSION: 1. 9 mm enhancing mass in left frontal lobe, decreased from 13 mm on 12/26/2023, consistent with metastatic disease. 2. Small acute infarcts in the right frontoparietal region and left frontal and parietal lobes.
== END 2024-04-14 09:30 | disposition home or self-care (01) ==
PROVIDERS: PCP Emergency Medicine; Visit Provider Radiology Radiation Oncology
DX: C34.92 Malignant neoplasm of unspecified part of left bronchus or lung (principal); R93.0 Abnormal findings on diagnostic imaging of skull and head, not elsewhere classified
CPT/HCPCS: 70553; A9577

== ENCOUNTER 2024-06-05 10:31 | Outpatient (CLI) | payer MEDICARE, SELFPAY ==
--- NOTE | ~2024-06-05 | CT_ITS ---
Clinical Indication: Lung cancer CT Scan of the Chest, Abdomen, and Pelvis with Contrast: Technique: Contiguous sections were acquired throughout the chest, abdomen, and pelvis after intraven ous administration of 100 cc of Omnipaque 350. Dose reduction technique was used on this scan by giuseppe mehtaing automated exposure control and iterative reconstruction technique. The dose-length product (DL P) was 524.61 mGy-cm. Comparison: 03/18/2024 Findings: There is no evidence of any significant mediastinal, hilar or axillary lymphadenopathy. The mediastin al soft tissues and vascular structures appear normal. Minimal pericardial effusion present. No pleural effusions. 1.1 cm spiculated left upper lobe pulmonary nodule with adjacent scarring is stable from prior exam. Right lung clear. 1.9 cm hypodense hepatic mass anteriorly in the left hepatic lobe is stable to minimally decreased in size from prior exam. The spleen, pancreas, adrenals and kidneys are within normal limits. Gallbladd er absent. There are atherosclerotic calcifications of the aorta. No lymphadenopathy. No bowel obstruction or bowel wall thickening. There is no evidence to suggest acute appendicitis. Urinary bladder is unremarkable. No pelvic mass seen. No ascites. Stable T3 compression fracture. Sta ble sclerosis at the superior endplate region of T1. Impression: Stable 1.1 cm spiculated left upper lobe pulmonary nodule. This could reflect neoplasm versus treated disease. 1.9 cm hepatic mass is compatible with metastasis, stable to minimally decreased from prior exam. Stable T3 compression fracture. Stable sclerotic change at the superior endplate region of T1, nonspe cific. Reviewed, dictated and finalized at location . Impression: Stable 1.1 cm spiculated left upper lobe pulmonary nodule. This could reflect n eoplasm versus treated disease. 1.9 cm hepatic mass is compatible with metastasis, stable to minimally decrease d from prior exam. Stable T3 compression fracture. Stable sclerotic change at the superior endplat e region of T1, nonspecific.
== END 2024-06-05 10:32 | disposition home or self-care (01) ==
LOC: ANHIMG 10:32
PROVIDERS: PCP Emergency Medicine; Visit Provider Internal Medicine Hematology & Oncology
DX: C34.90 Malignant neoplasm of unspecified part of unspecified bronchus or lung (principal)
CPT/HCPCS: 71260; 74177; Q9967

== ENCOUNTER 2024-07-27 11:51 | Outpatient (CLI) | payer MEDICARE, SELFPAY ==
--- NOTE | ~2024-07-27 | MR_ITS ---
EXAMINATION: MR brain/brain stem wo/w con DATE: 07/27/2024 12:42 INDICATION: Metastatic lung cancer to the brain. Headache and dizziness. TECHNIQUE: Magnetic resonance imaging (MRI) of the brain and brainstem was performed without and with 13 mL MultiHance intravenous contrast. COMPARISON: Brain MRI 04/14/2024 FINDINGS: There is a punctate old microhemorrhage in right cerebellum. There is an 8 mm enhancing mas s in left frontal lobe. 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 There is no ac [place] ischemic infarct. There are scattered areas of nonspecific increased T2-weighted signal intensity in the cerebral white matter, which is within normal limits for the patient's age. The ventricles ar e normal in size. The orbits are normal. There is mild mucosal thickening in the paranasal sinuses. T he mastoid air cells are normal. IMPRESSION: 1. Stable 8 mm enhancing mass in left frontal lobe, consistent with metastatic disease. Reviewed, dictated and finalized at location A. 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
== END 2024-07-27 11:52 | disposition home or self-care (01) ==
LOC: MICIMG 11:53
PROVIDERS: PCP Radiology Radiation Oncology; Visit Provider Radiology Radiation Oncology
DX: C34.92 Malignant neoplasm of unspecified part of left bronchus or lung (principal)
CPT/HCPCS: 70553; A9577

== ENCOUNTER 2024-09-14 08:21 | Outpatient (CLI) | payer MEDICARE, SELFPAY ==
--- NOTE | ~2024-09-14 | CT_ITS ---
EXAMINATION: CT chest abdomen pelvis w con DATE: 09/14/2024 08:50 INDICATION: Lung cancer TECHNIQUE: Computed tomography (CT) of the chest, abdomen, and pelvis was performed with 100 mL Omnip aque-350 intravenous contrast. Automated exposure control and iterative reconstruction technique were employed. The dose-length product was 390.26 mGy-cm. COMPARISON: 06/05/2024, 03/18/2024 and PET/CT dated 12/26/2023 FINDINGS: CHEST CT: Small nodular opacity along linear band of discoid atelectasis/scarring in the posterior left upper l obe at the site of the prior likely resected mass was biopsied on 12/19/2023. The nodular region kip nues to measure 11 mm in maximal short axis diameter and is slightly decreased from 8 mm to 7 mm in t hickness on the sagittal image. Additional linear band of discoid atelectasis/scarring in the right m iddle lobe. Unchanged 2 mm likely calcified nodule in the lingula along the major fissure. Heart size is normal. Atherosclerotic coronary artery calcification. Small pericardial effusion. Thoracic aorta is normal in caliber with no dissection. No pathologically enlarged thoracic lymphadenopathy. There is increased sclerosis at a previously lytic lesion at the right side of the T1 vertebral body consi stent with likely response to treatment of metastatic disease. Chronic T3 compression fracture with 6 0% vertebral body height loss. Unchanged linear soft tissue density scarring at the site of a prior s ubcutaneous mass at the inner lower right breast. ABDOMEN/PELVIS CT: Decrease in size of a previously 2.1 x 1.6 cm currently 1.6 x 1.3 cm mass at the junction of segments 4A and 4B of the liver which demonstrated peripheral increased FDG uptake at the time of the prior P ET/CT consistent with likely response to treatment of metastatic disease. Unchanged 4 mm hypodense le jerome in the caudal right hepatic lobe which is without evident FDG uptake on the prior study most lik ally representing a small hepatic cyst. Unchanged mild dilation the common bile duct measuring up to 1 0 mm diameter which is within normal limits post cholecystectomy. Decrease in size of a couple subcen timeter ill-defined hypodense lesions in the spleen previously demonstrating increased FDG uptake con sistent with response to treatment of metastatic disease. The pancreas, bilateral adrenal glands and right kidney are normal. Unchanged 8 mm cyst at the upper pole the left kidney. There is mild to mode rate colonic diverticulosis with a sigmoid predominance. There is inflammatory stranding along the mi d descending colon which is new since the prior study consistent with diverticulitis. No bowel obstru ction. Bladder is normal. The uterus is not identified and has likely been surgically resected. No fr ee intraperitoneal gas or fluid. No pathologically enlarged abdominal or pelvic lymphadenopathy. IMPRESSION: 1. No change to minimal decrease in size of a 1.1 cm spiculated nodule along a linear band of scarrin g at the site of a previously biopsy proven malignancy in the left upper lobe. While reassuring would recommend continued CT surveillance. 2. Decrease in size of hypodense lesions in the liver and spleen, no change in likely linear scarring at the site of a prior mass at the right breast and sclerosis at a previously lytic lesion at the T1 vertebral body consistent with response to treatment of metastatic disease. No lesions suspicious fo r new or progressive metastatic disease. 3. Small pericardial effusion. 4. Acute to subacute diverticulitis along the descending colon new since 06/05/2024. Reviewed, dictated and finalized at location B. G[employer] OF EMPLOYEE RELATIONS IMPRESSION: 1. No change to minimal decrease in size of a 1.1 cm spiculated nodule along a linear band of scarring at the site of a previously biopsy proven malignancy in the left upper lobe. While reassuring would recommend continued CT surveillanc e. 2. Decrease in size of hypodense lesions in the liver and spleen, no change in likely linear scarring at the site of a prior mass at the right breast and scle rosis at a previously lytic lesion at the T1 vertebral body consistent with res ponse to treatment of metastatic disease. No lesions suspicious for new or prog ressive metastatic disease. 3. Small pericardial effusion. 4. Acute to subacute diverticulitis along the descending colon new since 2023.
--- OUTSIDE RECORDS SUMMARY | 2024-09-17 11:53 | XMS_ITS | Clinical Summary ---
Author Organization [facility] Address [address] [place] [address] Care Team Providers Care Elevator Examiner Name Role Phone Iraj Spencer MD Primary Care Provider [phone] Allergies No known active allergies Medications losartan (COZAAR) 100 mg tablet Take 1 Tablet by mouth daily. 12/04/19 24 Active traMADoL (ULTRAM) 50 mg tabletIndicatio ns:Malignant neoplasm of lung, unspecified laterality, unspecified part of lung (CMS/HCC) Take 1 Tablet (50 mg) by mouth every 8 hours as needed for Pain. 60 Tablet 01/01/20 24 Active dexAMETHasone (DECADRON) 4 mg tablet Take 1 Tablet (4 mg) by mouth 2 times daily. Take with food. 60 Tablet 2 01/03/20 24 Active lidocaine-prilo carole (EMLA) 2.5-2.5 % CreamIndication s:Malignant neoplasm of lung, unspecified laterality, unspecified part of lung (CMS/HCC) Apply to affected area see administration instructions. 30 Gram 1 04/03/20 24 Active ondansetron (ZOFRAN ODT) 8 mg Tablet, Rapid DissolveIndicat ions:Malignant neoplasm of lung, unspecified laterality, unspecified part of lung (CMS/HCC) Dissolve 1 tablet on top of tongue then swallow with saliva every 8 hours as needed for nausea or vomiting 30 Tablet 1 04/03/20 24 Active methylPREDNISol one (MEDROL DOSPACK) 4 mg Tablets, Dose Pack Use as directed 21 Tablet 05/06/20 24 Active dexAMETHasone (DECADRON) 4 mg tabletIndicatio ns:Malignant neoplasm of lung, unspecified laterality, unspecified part of lung (CMS/HCC) Take 1 Tablet (4 mg) by mouth 2 times daily, day before treatment, day of treatment, and day after treatment. 6 Tablet 3 07/21/20 24 Active lansoprazole (Prevacid) 30 mg Capsule, Delayed Release(E.C.) Take 1 Capsule (30 mg) by mouth daily. 30 Capsule 6 07/21/20 24 Active folic acid (FOLVITE) 1 mg tabletIndicatio ns:Malignant neoplasm of lung, unspecified laterality, unspecified part of lung (CMS/HCC) Take 1 tablet by mouth once daily 90 Tablet 1 08/17/20 24 Active Active Problems No known active problems Encounters Date Type Department Care Team Description 09/15/2024 External Device Data STL ABSTRACTION Provider, Abstract 09/14/2024 Orders Only [facility] [place] [address]Gar[address] Richardson [address] Abdirashid Acosta MD 09/09/2024 External Device Data STL ABSTRACTION Provider, Abstract 09/07/2024 Orders Only [facility] - [place] [address] [place] [phone] Abdirashid Acosta MD Malignant neoplasm of lung, unspecified laterality, unspecified part of lung (CMS/HCC) 08/24/2024 Orders Only [facility] - [place] [address] [place] [phone] Abdirashid Acosta MD Malignant neoplasm of lung, unspecified laterality, unspecified part of lung (CMS/HCC) 08/17/2024 Orders Only [facility] [place] Kareem Richardson [address] [place] [phone] Abdirashid Acosta MD 08/16/2024 Refill [facility] [place] Kareem Richardson [address] [place] [address] Abdirashid Acosta MD Malignant neoplasm of lung, unspecified laterality, unspecified part of lung (CMS/HCC) 08/10/2024 Orders Only [facility] [place] Kareem Richardson [address] [place] [phone] Abdirashid Acosta MD Malignant neoplasm of lung, unspecified laterality, unspecified part of lung (CMS/HCC) 08/05/2024 Orders Only [facility] [place] Kareem Richardson [address] Abdirashid Acosta MD 07/28/2024 Orders Only [facility] [place] [address]Gar[address] Richardson [address] [place] [phone] Abdirashid Acosta MD 07/27/2024 Orders Only [facility] [place] Kareem Richardson [address] Abdirashid Acosta MD Malignant neoplasm of lung, unspecified laterality, unspecified part of lung (CMS/HCC) 07/22/2024 10:15 AM TABLE INSPECTOR Office Visit [facility] [place] Garry Richardson [address] [place] [phone] Abdirashid Acosta MD Malignant neoplasm of lung, unspecified laterality, unspecified part of lung (CMS/HCC) (Primary Dx) 07/21/2024 Refill [facility] [place] Garry Richardson [address] [place] [phone] Abdirashid Acosta MD Malignant neoplasm of lung, unspecified laterality, unspecified part of lung (CMS/HCC) 07/21/2024 Orders Only [facility] Radiation Therapy [address] [place] [address] Julio Oviedo MD 07/21/2024 Refill [facility] [place] Garry Richardson [address] [place] [address] Abdirashid Acosta MD Malignant neoplasm of lung, unspecified laterality, unspecified part of lung (CMS/HCC) 07/13/2024 Orders Only [facility] [place] Kareem Richardson [address] Abdirashid Acosta MD Malignant neoplasm of lung, unspecified laterality, unspecified part of lung (CMS/HCC) 07/10/2024 Refill [facility] [place] [address] Amar[address]it Richardson [address] [place] [id number] Abdirashid Acosta MD Malignant neoplasm of lung, unspecified laterality, unspecified part of lung (CMS/HCC) 07/08/2024 Orders Only [facility] [place] [address] Am[address] [place] [id number] Abdirashid Acosta MD 07/02/2024 Orders Only [facility] [place] [address] Am[address] Richardson [address] Abdirashid Acosta MD 07/01/2024 Orders Only [facility] [place] [address] Abdirashid Acosta MD 06/29/2024 Orders Only [facility] [place] [address] Amarjit Richardson [address] Abdirashid Acosta MD Malignant neoplasm of lung, unspecified laterality, unspecified part of lung (CMS/HCC) from Last 3 Months Family History Medical History Relation Name Comments Cancer Brother 1 Heart Disease Brother 2 Relation Name Status Comments Brother 1 Brother 2 Brother 3 Alive Daughter Alive Father Mother Sister Alive Son Alive Social History Tobacco Use Types Packs/Day Years Used Date Smoking Tobacco: Former Cigarettes 1 50.3 1 974 - 12/19/2023 Smokeless Tobacco: Never Tobacco Cessation:Counseling Given: Not Answered Alcohol Use Standard Drinks/Week Comments Not Currently 0 (1 standard drink = 0.6 oz pur e alcohol) Feeling Safe Answer Date Recorded Are you in a relationship wi th someone who hurts you emotionally and/or physically? No 01/16/2024 Comments Unknown Sex and Gender Information Value Date Recorded Sex Assigned at Not on file Legal Sex Female 1:47 PM CDT Gender Identity Not on file Sexual Orientation Not on file Last Filed Vital Signs Vital Sign Reading Time Taken Comments Blood Pressure 131/73 07/22/2024 10:20 AM TABLE INSPECTOR Pulse 62 07/22/2024 10:20 AM TABLE INSPECTOR Temperature 36.6 ??C (97.8 ??F) 07/22/2024 1 0:20 AM TABLE INSPECTOR Respiratory Rate 16 07/22/2024 10:2 0 AM TABLE INSPECTOR Oxygen Saturation 95% 07/22/2024 10: 20 AM TABLE INSPECTOR Inhaled Oxygen Concentration - - Weight 65.2 kg (143 lb 12.8 oz) 024 10:20 AM TABLE INSPECTOR Height 154.9 cm (5' 1 ) 01/09/2024 11:3 0 AM CDT Body Mass Index 27.17 01/09/2024 11:30 AM CDT Plan of Treatment Upcoming Encounters Date Type Department Care Team (Late st Contact Info) Description 09/21/2024 9:15 AM TABLE INSPECTOR Office Visit [facility] [place] [address] [facility] [address] [place] [address] Abdirashid Acosta MD [address] [facility] [address] [place] [address] Health Maintenance Due Date Last Done Comments Pre-Diabetes and Diabetes Screening 1958 DTAP/TDAP/TD VACCINES (1 - Tdap) 1977 PNEUMOCOCCAL VACCINE 65+ YEARS (1 of 2 - PCV) 04/13/19 77 ZOSTER VACCINE (1 of 2) 1977 BREAST CANCER SCREENING 1998 COLORECTAL SCREENING 2003 Colorectal Cancer Screening 2003 FIT-DNA Q 3 years 2003 FIT/FOBT Q 1 year 2003 Flex Sig/CT Colonography Q 5 years 2003 RSV VACCINE (60+ or ) (1 - Risk 60-74 years 1-dose series) 2018 OSTEOPOROSIS SCREENING 2023 INFLUENZA VACCINE (#1) 2024 [place] Prev entative Visit/Annual Wellness Visit 08/26/2024 Procedures Procedure Name Priority Date/Time Associated Diagnosis Comments CT CHEST ABDOMEN PELVIS W CONT Routine 09/14/2024 11:04 AM TABLE INSPECTOR COMPREHENSIVE METABOLIC PANEL Routine 08/14/2024 11:17 AM TABLE INSPECTOR BASIC METABOLIC PANEL Routine 08/03/2024 4:14 PM TABLE INSPECTOR BASIC METABOLIC PANEL Routine 07/22/2024 11:57 AM TABLE INSPECTOR CBC WITH DIFFERENTIAL Routine 07/22/2024 11:52 AM TABLE INSPECTOR COMPREHENSIVE METABOLIC PANEL Routine 07/22/2024 9:02 AM TABLE INSPECTOR BASIC METABOLIC PANEL Routine 07/06/2024 10:45 AM TABLE INSPECTOR CBC WITH DIFFERENTIAL Routine 07/01/2024 2:58 PM TABLE INSPECTOR BASIC METABOLIC PANEL Routine 07/01/2024 2:57 PM TABLE INSPECTOR COMPREHENSIVE METABOLIC PANEL Routine 07/01/2024 8:25 AM TABLE INSPECTOR from Last 3 Months Results * CT CHEST ABDOMEN PELVIS W CONT (09/14/2024 11:04 AM TABLE INSPECTOR) Anatomical Region Laterality Modality Chest Other us Abdirashid Acosta MD CT ORDERABLES Final Result * COMPREHENSIVE METABOLIC PANEL (08/14/2024 11:17 AM TABLE INSPECTOR) Only the most recent of3 resultswithin the time period is included. Blood us Abdirashid Acosta MD CHEMISTRY ORDERABLES Final Resu lt * BASIC METABOLIC PANEL (08/03/2024 4:14 PM TABLE INSPECTOR) Only the most recent of4 resultswithin the time period is included. Blood us Abdirashid Acosta MD CHEMISTRY ORDERABLES Final Resu lt * CBC WITH DIFFERENTIAL (07/22/2024 11:52 AM TABLE INSPECTOR) Only the most recent of2 resultswithin the time period is included. Blood us Abdirashid Acosta MD HEMATOLOGY ORDERABLES Final Res ult from Last 3 Months Insurance Member Subscriber Plan / Payer (Ef fective 2023-Present) Name:Regi Snyder Relation to Subscriber:Self Name:Regi Snyder Payer ID:[id number] (NAIC) Type:HMO Address: [place] [id number] ADVANTAGE O Advance Directives For more information, please contact: [phone] Documents on File Type Date Recorded Patient Health Safety Engineer Expl anation Advance Directive Living Will 01/09/2024 12:02 PM Advance Directive POA 01/09/2024 12:02 PM Care Teams Elevator Examiner Relationship Specialty Start Date End Date Iraj Spencer MD [facility] [place] [address] PCP - General Family Practice 12/12/23
--- OUTSIDE RECORDS SUMMARY | 2024-09-17 11:53 | XMS_ITS | Continuity of Care Document ---
Author Organization [facility] Address [address] [place] [address] [place] [address] Phone Care Team Providers Care Glove Machine Operator Name Role Phone Unavailable Unavailable Unavailable Advance Directives Directive Yes / No Effective Date File Name No Information Encounters Encounter Description Practice Location Reason(s) For Visit Diagnoses Date Provider Providers Copied on Encounter [facility], [address], [place], [place], [id number], [place] tel:[phone] [facility] No Information Apr-2 7-200 0 No Information Family History Family Member Type Diagnosis Age At Onset No Information Payers Payer name Insurance type Covered republican ID Authoriza tion(s) No Information Social History Type Description Quantity Date Captured Comments Sex Female Smoking Status No Information Chief Complaint And Reason For Visit No Information Reason For Referral Reason For Referral No Information History Of Present Illness Encounter Date Complaint History Of Prese nt Illness No Information Functional Status Date Functional Assessmen t No Information Instructions Date Instruction Additional Infor mation No Information Assessments Type Assessment Date No Information Patient Care Teams Name Effective Dates (start - stop) Status Members No Information
== END 2024-09-14 08:22 | disposition home or self-care (01) ==
PROVIDERS: PCP Radiology Radiation Oncology; Visit Provider Internal Medicine Hematology & Oncology
DX: C34.90 Malignant neoplasm of unspecified part of unspecified bronchus or lung (principal); I31.39 Other pericardial effusion (noninflammatory); K57.32 Diverticulitis of large intestine without perforation or abscess without bleeding
CPT/HCPCS: 71260; 74177; Q9967

== ENCOUNTER 2024-10-02 10:56 | Outpatient (CLI) | payer MEDICARE, SELFPAY ==
--- OUTSIDE RECORDS SUMMARY | 2024-10-02 11:37 | XMS_ITS | Encounter Summary ---
Author Organization [facility] Address [address] [place] [address] Care Team Providers Care Generation Engineering Technologist Name Role Phone Iraj Spencer MD Primary Care Provider [phone] Encounter Details Date Type Department Care Team (Late Contact Info) Description 10/01/2024 Orders Only [facility] Oncology and Hematology - [place] [address] [place] [address] Abdirashid Acosta MD [address] [place] [address] Social History Tobacco Use Types Packs/Day Years Used Date Smoking Tobacco: Former Cigarettes 1 50.3 1 974 - 12/19/2023 Smokeless Tobacco: Never Alcohol Use Standard Drinks/Week Comments Not Currently [...] on file Sexual Orientation Not on file documented as of this encounter Plan of Treatment Upcoming Encounters Date Type Department Care Team (Late Contact Info) Description 11/04/2024 9:45 AM CDT Office Visit [facility] Oncology and Hematology - [place] [address] Am[address] [place] [address] Abdirashid Acosta MD [address] [place] [address] documented as of this encounter Procedures Procedure Name Priority Date/Time Associated Diagnosis Comments BASIC METABOLIC PANEL Routine 10/01/2024 10:18 AM RETAIL ADVERTISING ACCOUNT EXECUTIVE documented in this encounter Results * BASIC METABOLIC PANEL (10/01/2024 10:18 AM RETAIL ADVERTISING ACCOUNT EXECUTIVE) Blood Abdirashid Acosta MD CHEMISTRY ORDERABLES Final Resu lt documented in this encounter Visit Diagnoses Not on filedocumented in this encounter Care Teams Generation Engineering Technologist Relationship Specialty Start Date End Date Iraj Spencer MD [address] [place] [address] PCP - General Family Practice 12/12/23 documented as of this encounter
--- OUTSIDE RECORDS SUMMARY | 2024-10-02 11:37 | XMS_ITS | Clinical Summary ---
Author Organization [facility] Address [facility] [address] [place] [address] Care Team Providers Care Advanced Nursing Professor Name Role Phone Iraj Spencer MD Primary Care Provider Allergies No known active allergies Medications losartan [...] daily 90 Tablet 1 08/17/20 24 Active potassium chloride (KLOR-CON M20) 20 mEq Extended Release tablet Take 1 Tablet (20 mEq) by mouth 2 times daily. 60 Tablet 1 10/01/19 25 Active Active Problems No known active problems Encounters Date Type Department Care Team Description 10/01/2024 Orders Only [facility] Oncology and Hematology - [place] [address] [place] [address] Abdirashid Acosta MD 10/01/2024 Telephone [facility] On[facility] and Hematology - [place] Garry Richardson [address] [place] [address] Abdirashid Acosta MD Lab results 10/01/2024 Telephone [facility] Hematology - [place] Amarjit Richardson [address] [place] [phone] Abdirashid Acosta MD Diarrhea 09/22/2024 Orders Only [facility] Hematology - [place] Kareem Richardson [address] [place] [address] Abdirashid Acosta MD 09/21/2024 9:15 AM STOCK BUYER Office Visit [facility] Oncology and Hematology - [place] Kareem Richardson [address] [place] [address] Abdirashid Acosta MD Malignant neoplasm of lung, unspecified laterality, unspecified part of lung (CMS/HCC) 09/16/2024 External Device Data STL ABSTRACTION Provider, Abstract 09/15/2024 External Device Data STL ABSTRACTION Provider, Abstract 09/14/2024 Orders Only [facility] Oncology and Hematology - [place] [address] Am[address] Abdirashid Acosta MD 09/09/2024 External Device Data STL ABSTRACTION Provider, Abstract 09/07/2024 Orders Only [facility] Oncology and Hematology - [place] [address] Am[address] Abdirashid Acosta MD Malignant neoplasm of lung, unspecified laterality, unspecified part of lung (CMS/HCC) 08/24/2024 Orders Only [facility] Oncology and Hematology - [place] [address] Am[address] Abdirashid Acosta MD Malignant neoplasm of lung, unspecified laterality, unspecified part of lung (CMS/HCC) 08/17/2024 Orders Only [facility] Oncology and Hematology - [place] [address] [place] [phone] Abdirashid Acosta MD 08/16/2024 Refill [facility] Oncology and Hematology - [place] [address] Am[address] Abdirashid Acosta MD Malignant neoplasm of lung, unspecified laterality, unspecified part of lung (CMS/HCC) 08/10/2024 Orders Only [facility] Oncology and Hematology - [place] [address] [place] [phone] Abdirashid Acosta MD Malignant neoplasm of lung, unspecified laterality, unspecified part of lung (CMS/HCC) 08/05/2024 Orders Only [facility] Oncology and Hematology - [place] [address] [place] [phone] Abdirashid Acosta MD 07/28/2024 Orders Only [facility] Oncology and Hematology - [place] [address] [place] [phone] Abdirashid Acosta MD 07/27/2024 Orders Only [facility] Oncology and Hematology - [place] [address] [place] [address] Abdirashid Acosta MD Malignant neoplasm of lung, unspecified laterality, unspecified part of lung (CMS/HCC) 07/22/2024 10:15 AM STOCK BUYER Office Visit [facility] Oncology and Hematology - [place] [address] [place] [address] Abdirashid Acosta MD Malignant neoplasm of lung, unspecified laterality, unspecified part of lung (CMS/HCC) (Primary Dx) 07/21/2024 Refill [facility] Oncology and Hematology - [place] [address] [place] [address] Abdirashid Acosta MD Malignant neoplasm of lung, unspecified laterality, unspecified part of lung (CMS/HCC) 07/21/2024 Orders Only [facility] Radiation Therapy [address] [place] [address] Julio Oviedo MD 07/21/2024 Refill [facility] Oncology and Hematology - [place] [address] [place] [address] Abdirashid Acosta MD Malignant neoplasm of lung, unspecified laterality, unspecified part of lung (CMS/HCC) 07/13/2024 Orders Only [facility] Oncology and Hematology - [place] [address] [place] [address] Abdirashid Acosta MD Malignant neoplasm of lung, unspecified laterality, unspecified part of lung (CMS/HCC) 07/10/2024 Refill [facility] Oncology and Hematology - [place] [address] [place] [address] Abdirashid Acosta MD Malignant neoplasm of lung, unspecified laterality, unspecified part of lung (CMS/HCC) 07/08/2024 Orders Only [facility] Oncology and Hematology - [place] [address] [place] [address] Abdirashid Acosta MD 07/02/2024 Orders Only [facility] Oncology and Hematology - [place] [address] [place] [address] Abdirashid Acosta MD from Last 3 Months Family History Medical [...] Sign Reading Time Taken Comments Blood Pressure 127/77 09/21/2024 9:23 AM STOCK BUYER Pulse 66 09/21/2024 9:23 AM STOCK BUYER Temperature 36.7 C (98 F) 09/21/2024 9:23 AM STOCK BUYER Respiratory Rate 16 09/21/2024 9:23 AM STOCK BUYER Oxygen Saturation 98% 09/21/2024 9:23 AM STOCK BUYER Inhaled Oxygen Concentration - - Weight 65.8 kg (145 lb) 09/21/2024 9:23 AM STOCK BUYER Height 154.9 cm (5' 1 ) 01/09/2024 11:30 AM CDT Body Mass Index 27.4 01/09/2024 11:30 AM CDT Plan of Treatment Upcoming Encounters Date Type Department Care Team (Late st Contact Info) Description 11/04/2024 9:45 AM CDT Office Visit [facility] Oncology and Hematology - [place] [address] [place] [address] Abdirashid Acosta MD [address] [facility] [address] [place] [address] Health Maintenance Due Date Last [...] 2023 INFLUENZA VACCINE (#1) 2024 [place] Prev entative Visit/Annual Wellness Visit 08/26/2024 Procedures Procedure Name Priority Date/Time Associated Diagnosis Comments BASIC METABOLIC PANEL Routine 10/01/2024 10:18 AM STOCK BUYER COMPREHENSIVE METABOLIC PANEL Routine 09/21/2024 11:58 AM STOCK BUYER BASIC METABOLIC PANEL Routine 09/21/2024 10:11 AM STOCK BUYER CBC WITH DIFFERENTIAL Routine 09/21/2024 10:06 AM STOCK BUYER CBC WITH DIFFERENTIAL Routine 09/21/2024 10:[address] CHEST ABDOMEN PELVIS W CONT Routine 09/14/2024 11:04 AM STOCK BUYER COMPREHENSIVE METABOLIC PANEL Routine 08/14/2024 11:17 AM STOCK BUYER BASIC METABOLIC PANEL Routine 08/03/2024 4:14 PM STOCK BUYER BASIC METABOLIC PANEL Routine 07/22/2024 11:57 AM STOCK BUYER CBC WITH DIFFERENTIAL Routine 07/22/2024 11:52 AM STOCK BUYER COMPREHENSIVE METABOLIC PANEL Routine 07/22/2024 9:02 AM STOCK BUYER BASIC METABOLIC PANEL Routine 07/06/2024 10:45 AM STOCK BUYER from Last 3 Months Results * BASIC METABOLIC PANEL (10/01/2024 10:18 AM STOCK BUYER) Only the most recent of5 resultswithin the time period is included. Blood Abdirashid Acosta MD CHEMISTRY ORDERABLES Final Resu lt * COMPREHENSIVE METABOLIC PANEL (09/21/2024 11:58 AM STOCK BUYER) Only the most recent of3 resultswithin the time period is included. Blood Abdirashid Acosta MD CHEMISTRY ORDERABLES Final Resu lt * CBC WITH DIFFERENTIAL (09/21/2024 10:06 AM STOCK BUYER) Only the most recent of3 resultswithin the time period is included. Blood Abdirashid Acosta MD HEMATOLOGY ORDERABLES Final Res ult * CT CHEST ABDOMEN PELVIS W CONT (09/14/2024 11:04 AM STOCK BUYER) Anatomical Region Laterality Modality Chest Other Abdirashid Acosta MD CT ORDERABLES Final Result from Last 3 Months Insurance [employer] Member Subscriber Plan / Payer (Ef fective 2023-Present) Name:Regi Snyder Relation to Subscriber:Self Name:Regi Snyder Payer ID:[id number] (NAIC) Type:[employer]O Address: [address] Advance Directives For more information, please contact: [phone] Documents on File Type Date Recorded Patient Buoy Tender Expl anation Advance Directive Living Will 01/09/2024 12:02 PM Advance Directive POA 01/09/2024 12:02 PM Care Teams Advanced Nursing Professor Relationship Specialty Start Date End Date Iraj Spencer MD [facility] [place] [address] PCP - General Family Practice 12/12/23
--- OUTSIDE RECORDS SUMMARY | 2024-10-02 11:37 | XMS_ITS | Encounter Summary ---
Author Organization [facility] [employer] [facility] Address [address] [place] [address] Care Team Providers Care Dye Machine Operator Name Role Phone Iraj Spencer MD Primary Care Provider [phone] Reason for Visit * Reason Onset Date Comments Lab results 10/01/2024 Encounter Details Date Type Department Care Team (Late st Contact Info) Description 10/01/2024 Telephone [facility] Oncology and Hematology - [place] [facility] [address] [place] [address] Abdirashid Acosta MD [address] [facility] [address] [place] [address] Lab results Social History Tobacco Use Types Packs/Day Years [...] on file documented as of this encounter Miscellaneous Notes * Telephone Encounter - Jazmin Villalpando - 10/01/2024 10:16 AM CST Patient came in today and had labs drawn. After review her potassium is low. Dr. Acosta would like her to start on Potassium BID. DRIER documented in this encounter Plan of Treatment Upcoming Encounters Date Type Department Care Team (Late st Contact Info) Description 11/04/2024 9:45 AM CDT Office Visit [facility] Oncology and Hematology [facility] [address] [facility] [address] [place] [address] Abdirashid Acosta MD [address] [facility] [address] [place] [address] documented as of this encounter Visit Diagnoses Not on filedocumented in this encounter Care Teams Dye Machine Operator Relationship Specialty Start Date End Date Iraj Spencer MD [address] [facility] [place] [id number] PCP - General Family Practice 12/12/23 documented as of this encounter
--- OUTSIDE RECORDS SUMMARY | 2024-10-02 11:37 | XMS_ITS | Continuity of Care Document ---
Author Organization [facility] Address [address] [place] [address] [place] [address] Phone Care Team Providers Care Smart Energy Specialist Name Role Phone Unavailable Unavailable Unavailable Advance Directives Directive Yes / No Effective Date File Name No Information Encounters Encounter Description Practice Location Reason(s) For Visit Diagnoses Date Provider Providers Copied on Encounter [facility], [address], [place], [place], [id number], [place] tel:[phone] [facility] No Information Apr-2 7-200 0 No Information Family History Family Member Type Diagnosis Age At Onset No Information Payers Payer name Insurance type Covered green party ID Authoriza tion(s) No Information Social History [...]
--- OUTSIDE RECORDS SUMMARY | 2024-10-02 11:37 | XMS_ITS | Encounter Summary ---
Author Organization [facility] [employer] [facility] Address [address] [place] [address] Care Team Providers Care Automobile Service Advisor Name Role Phone Iraj Spencer MD Primary Care Provider [phone] Reason for Visit * Reason Onset Date Comments Diarrhea 10/01/2024 Encounter Details Date Type Department Care Team ([facility] st Contact Info) Description 10/01/2024 Telephone [facility] Oncology and Hematology - [place] [address] [facility] [address] [place] [address] Abdirashid Acosta MD [address] [facility] [address] [place] [address] Diarrhea Social History Tobacco Use Types Packs/Day Years [...] encounter Miscellaneous Notes * Telephone Encounter - ZabrinaJazmin partida Arturo - 10/01/2024 9:22 AM CST Patient came in today for her chemotherapy. She said that she has been having diahrrea about 6 times a day. She says that it smells really bad. Infusion is going to hold treatment today and do a c.diff detection They will get her back on the schedule once her results come back. documented in this encounter Plan of Treatment Upcoming Encounters Date Type Department Care Team (Late st Contact Info) Description 11/04/2024 9:45 AM CDT Office Visit [facility] Oncology and Hematology [facility] [address] [facility] [address] [place] [address] Abdirashid Acosta MD [address] [facility] [address] [place] [address] Scheduled Orders Name Type Priority Associated Diagnoses Orde r Schedule C. DIFFICILE DETECTION Microbiology Routine Acute diarrhea Expected: 10/01/2024, Expires: 10/01/2025 documented as of this encounter Visit Diagnoses Diagnosis Acute diarrhea- Primary Diarrhea documented in this encounter Care Teams Automobile Service Advisor Relationship Specialty Start Date End Date Iraj Spencer MD [address] [facility] [place] [address] PCP - General Family Practice 12/12/23 documented as of this encounter
[2024-10-02 12:14] LABS: Toxigenic C. Diff NEGATIVE (NEGATIVE)
== END 2024-10-02 10:57 | disposition home or self-care (01) ==
LOC: ANHLAB 10:58
PROVIDERS: PCP Radiology Radiation Oncology; Visit Provider Internal Medicine Hematology & Oncology
DX: R19.7 Diarrhea, unspecified (principal)
CPT/HCPCS: 87493

== ENCOUNTER 2024-11-09 12:15 | Outpatient (CLI) | payer MEDICARE, SELFPAY ==
--- NOTE | ~2024-11-09 | MR_ITS ---
MRI of the brain Clinical History: Secondary malignancy of brain Technique: Axial and sagittal T1-weighted images were acquired. These were followed by axial T2-weigh hilary, diffusion weighted, gradient, and FLAIR images. Following intravenous administration of 13 cc Pr oHance gadolinium, T1-weighted fat-sat imaging was performed in the axial and coronal planes. COMPARISON: 07/27/2024 Findings: There is no acute infarct or intracranial hemorrhage. Stable small enhancing lesion in the left frontal lobe. Ventricles and subarachnoid spaces are unremarkable. Orbits are unremarkable. Dual sinuses and mastoid air cells demonstrate minimal right maxillary and right ethmoid sinus diseas e. Major intracranial flow voids are intact. Sagittal midline structures are intact. No other abnormal postcontrast enhancement identified. IMPRESSION: Stable small enhancing lesion left frontal lobe, compatible with metastatic disease. Reviewed, dictated and finalized at location . IMPRESSION: Stable small enhancing lesion left frontal lobe, compatible with metastatic dis ease.
--- OUTSIDE RECORDS SUMMARY | 2024-11-09 14:37 | XMS_ITS | Encounter Summary ---
Author Organization [facility] [employer] [facility] Address [address] [place] [address] Care Team Providers Care Electrophysiology Technician Name Role Phone Iraj Spencer MD Primary Care Provider [phone] Encounter Details Date Type Department Care Team (Late Contact Info) Description 11/04/2024 Orders Only [facility] Oncology and Hematology - [place] [address] [place] [address] Abdirashid Acosta MD [address] [place] [address] Social History Tobacco Use Types Packs/Day [...] Department Care Team (Late Contact Info) Description 12/08/2024 8:30 AM CDT Office Visit [facility] Oncology and Hematology - [place] [place] [address] Abdirashid Acosta MD [address] [place] [address] documented as of this encounter Procedures Procedure Name Priority Date/Time Associated Diagnosis Comments COMPREHENSIVE METABOLIC PANEL Routine 11/03/2024 9:38 AM CDT documented in this encounter Results * COMPREHENSIVE METABOLIC PANEL (11/03/2024 9:38 AM CDT) Blood Abdirashid Acosta MD CHEMISTRY ORDERABLES Final Resu lt documented in this encounter Visit Diagnoses Not on filedocumented in this encounter Care Teams Electrophysiology Technician Relationship Specialty Start Date End Date Iraj Spencer MD [facility] [facility] [place] [address] PCP - General Family Practice 12/12/23 documented as of this encounter
--- OUTSIDE RECORDS SUMMARY | 2024-11-09 14:37 | XMS_ITS | Continuity of Care Document ---
Author Organization [facility] Address [address] [place] [address] [place] [address] Phone Care Team Providers Care Financial Reserve Clerk Name Role Phone Unavailable Unavailable Unavailable Advance Directives Directive Yes / No Effective Date File Name No Information Encounters Encounter Description Practice Location Reason(s) For Visit Diagnoses Date Provider Providers Copied on Encounter [facility], [address], [place], [place], [id number], [place] tel:[phone] [facility] No Information Apr-2 7-200 0 No Information Family History Family Member Type Diagnosis Age At Onset No Information Payers Payer name Insurance type Covered democrat ID Authoriza tion(s) No Information Social History [...]
--- OUTSIDE RECORDS SUMMARY | 2024-11-09 14:37 | XMS_ITS | Clinical Summary ---
Author Organization [facility] Address [facility] [place] [address] Care Team Providers Care Script Supervisor Name Role Phone No, Physician Primary Care Provider [phone] Allergies No known active allergies Medications dexAMETHasone (DECADRON) 4 mg tablet Take 1 tablet (4 mg total) by mouth as directed Take 1 tab bid every saturday on treatment days. Last dose was 10/07/24 @ 2100 Active folic acid (FOLVITE) 1 mg tablet Take 1 tablet (1 mg total) by mouth daily Last dose 10/12/24 @ 0900 Active lidocaine-priloca ine (EMLA) creamIndications: Administration of Local Anesthesia Apply topically as needed for pain Active losartan (COZAAR) 100 mg tablet Take 1 tablet (100 mg total) by mouth daily Active potassium chloride ER 20 mEq CR tablet Take 1 tablet (20 mEq total) by mouth 2 (two) times a day Active acetaminophen (TYLENOL) 325 mg tabletIndications :Fever,Pain Take 2 tablets (650 mg total) by mouth every 4 (four) hours as needed for pain, headaches or fever 10/18/19 25 Active loperamide (IMODIUM) 2 mg capsuleIndication s:Drug and toxin-induced diarrhea Take 1 capsule (2 mg total) by mouth 4 (four) times a day for 10 doses 10/18/19 25 Active polyethylene glycol (MIRALAX) 17 gram packetIndications :constipation Take 1 packet (17 g total) by mouth daily as needed for constipation 10/18/[address] (PROTONIX) 40 mg EC tablet Take 1 tablet (40 mg total) by mouth 2 (two) times a day 60 tablet 10/18/19 25 025 Active lansoprazole (PREVACID) 30 mg capsule Take 1 capsule (30 mg total) by mouth daily 025 Discontinu ed(Stop Taking at Discharge) metroNIDAZOLE (FLAGYL) 500 mg tabletIndications :Abdominal/Pelvic Infection Take 1 tablet (500 mg total) by mouth 3 (three) times a day for 3 days 9 tablet 10/18/19 25 025 ondansetron ODT (ZOFRAN-ODT) 4 mg disintegrating tabletIndications :Nausea and Vomiting Take 1 tablet (4 mg total) by mouth every 6 (six) hours as needed for nausea or vomiting for up to 10 days 20 tablet 10/18/19 25 025 dexAMETHasone (DECADRON) 6 mg tablet Take 1 tablet (6 mg total) by mouth daily with breakfast for 3 days 3 tablet 10/19/19 25 025 Active Problems Problem Noted Date Diagnosed Date Gastrointestinal hemorrhage, unspecified gastrointestinal hemorrhage type 10/12/2024 Hematemesis 10/12/2024 Encounters Date Type Department Care Team Description 5 Telephone [facility] Gastroenterology at [address] [place] [phone] Enrike Camacho MD 5 2:39 PM [facility] Anesthesia Event [facility]o [address] [place] [address] Dario Soria MD 5 2:00 PM [employer] - 5 2:40 PM [facility] Surgery [facility] [address] [place] [address] Brain Rucker ra, MD ESOPHAGOGASTRODUODENOSCOPY BIOPSY 5 2:00 PM [employer] - 5 2:30 PM [facility] Surgery [facility] End[facility] [address] [place] [address] Brain Rucker ra, MD Not Performed COLONOSCOPY 5 5:25 PM [employer] - 5 10:39 AM [employer] Hospital Encounter [facility] 4 Med Surg [address] [place] [address] Anthony Kang MD Brother, Michele, MD Lopez, Manuel Emilio, MD Visconti, John L., Gastrointestinal hemorrhage, unspecified gastrointestinal hemorrhage type (Primary Dx); Drug and toxin-induced diarrhea; Chemotherapy-induced neutropenia; Hematemesis, unspecified whether nausea present Discharge Disposition: Discharge to home or self care from Last 3 Months Surgical History Surgery Date Site/Laterality Comments CHOLECYSTECTOMY Medical History Medical History Date Comments Lung cancer (HCC) mets to bone, brain, liver, spleen HTN (hypertension) Social History Tobacco Use Types Packs/Day Years Used Date Smoking Tobacco: Former Cigarettes Tobacco Cessation:Counseling Given: Not Answered [facility] Utilities Answer Date Recorded In the past 12 months has th e electric, gas, oil, or water company threatened to shut off services in your home? No 10/13/2024 Social Connection and Isolat ion Panel [NHANES] Answer Date Recorded In a typical week, how many times do you talk on the phone with family, friends, or neighbors? More than three times a week 10/13/2024 How often do you get togethe r with friends or relatives? More than three times a week 10/13/2024 How often do you attend chur ch or sikh services? Never 10/13/2024 Do you belong to any clubs o r organizations such as jainism groups, unions, fraternal or athletic groups, or school groups? No 10/13/2024 How often do you attend meet ings of the clubs or organizations you belong to? Never 10/13/2024 Are you , , di vorced, , never , or living with a partner? 10/13/2024 AUDIT-C Answer Date Recorded Q1: How often do you have a drink containing alc ohol? Monthly or less 10/12/2024 Average Number of Drinks Not on file 025 Frequency of Binge Drinking Not on file 09/26 Overall Financial Resource Strain (CARDIA) Answe r Date Recorded How hard is it for you to pa y for the very basics like food, housing, medical care, and heating? Not very hard 10/13/2024 Hunger Vital Sign Answer Date Recorded Within the past 12 months, y ou worried that your food would run out before you got the money to buy more. Never true 10/13/19 25 Within the past 12 months, t he food you bought just didn't last and you didn't have money to get more. Never true 10/13/2024 PRAPARE - Transportation Answer Date Re corded In the past 12 months, has l ack of transportation kept you from medical appointments or from getting medications? No 09/26 In the past 12 months, has l ack of transportation kept you from meetings, work, or from getting things needed for daily living? No 10/13/2024 Housing Stability Vital Sign Answer Benajmín e Recorded In the last 12 months, was t here a time when you were not able to pay the mortgage or rent on time? No 10/13/2024 In the past 12 months, how m any times have you moved where you were living? 0 10/13/2024 At any time in the past 12 m [facility], were you homeless or living in a retirement (including now)? No 10/13/2024 Personal Safety Answer Date Recorded Have you ever been in or are you currently in a harmful physical or emotional relationship or is someone making you feel afraid or unsafe? Denies 10/12/2024 Comments Unknown Sex and Gender Information Value Date Recorded Sex Assigned at Not on file Legal Sex Female 12:32 PM [employer] Gender Identity Not on file Sexual Orientation Not on file Obstetrics History Last Filed Vital Signs Vital Sign Reading Time Taken Comments Blood Pressure 103/71 10/18/2024 7:35 AM [employer] Pulse 60 10/18/2024 7:35 AM [employer] Temperature 36.4 C (97.5 F) 10/18/2024 7:35 AM [employer] Respiratory Rate 15 10/18/2024 7:35 AM [employer] Oxygen Saturation 100% 10/18/2024 7:35 AM [employer] Inhaled Oxygen Concentration - - Weight 62.1 kg (137 lb) 10/17/2024 1:47 PM [employer] Height 154.9 cm (5' 1 ) 10/12/2024 9:29 PM [employer] Body Mass Index 25.89 10/12/2024 9:29 PM [employer] Plan of Treatment Health Maintenance Due Date Last Done Comments Breast Cancer Screening-Mammogram 1960 Colon Cancer Screening-Colonoscopy 1960 Depression Screening 1960 Hepatitis C Screening 1960 Osteoporosis Screening-Bone Density Scan 1960 DTaP/Tdap/Td Vaccine (1 - Tdap) 1969 Hepatitis B Screening 1976 Pneumococcal vaccine 65+ (1 of 2 - PCV) 1977 Zoster Vaccine (1 of 2) 1977 Well Visit 65+ 2023 Influenza Vaccine (#1) 2024 Fall Risk Assessment 10/18/2025 10/18/2024 Medical Devices Implanted Type Area Operator Specialist Communications Device Identifier Shelf Expiration Date Model / Serial / Lot Port Right: Chest Wall Procedures Procedure Name Priority Date/Time Associated Diagnosis Comments EGFR Routine 10/18/2024 5:10 AM [employer] DIFFERENTIAL AUTO Routine 10/18/2024 5:10 AM [employer] COMPREHENSIVE METABOLIC PANEL Routine 5:10 AM [employer] CBC WITH AUTO DIFFERENTIAL Routine 10/18 5:10 AM [employer] SURGICAL PATHOLOGY Routine 10/17/2024 2:54 PM [employer] Hematemesis, unspecified whether nausea present ESOPHAGOGASTRODUODENOSCOPY BIOPSY 10/17/2024 2:41 PM [employer] Hematemesis, unspecified whether nausea present EGD 10/17/2024 2:38 PM [employer] EGFR Routine 10/17/2024 4:31 AM [employer] DIFFERENTIAL AUTO Routine 10/17/2024 4:31 AM [employer] COMPREHENSIVE METABOLIC PANEL Routine 4:31 AM [employer] CBC WITH AUTO DIFFERENTIAL Routine 10/17 4:31 AM [employer] EGFR Routine 10/16/2024 4:02 AM [employer] DIFFERENTIAL AUTO Routine 10/16/2024 4:02 AM [employer] COMPREHENSIVE METABOLIC PANEL Routine 4:02 AM [employer] CBC WITH AUTO DIFFERENTIAL Routine 10/16 4:02 AM [employer] STOOL CULTURE Routine 10/15/2024 4:01 PM [employer] HIV 1/2 ANTIBODY PLUS P24 ANTIGEN Routine 10/15/2024 8:38 AM [employer] MAGNESIUM Routine 10/15/2024 4:36 AM [employer] EGFR Routine 10/15/2024 4:36 AM [employer] DIFFERENTIAL AUTO Routine 10/15/2024 4:36 AM [employer] COMPREHENSIVE METABOLIC PANEL Routine 4:36 AM [employer] CBC WITH AUTO DIFFERENTIAL Routine 10/15 4:36 AM [employer] CBC WITHOUT DIFFERENTIAL STAT 025 9:36 AM [employer] MICROBIOLOGY CALLBACK Routine 10/13/2024 12:31 PM [employer] CRYPTOSPORIDIUM AND GIARDIA ANTIGEN ASSAY Routine 10/13/2024 12:31 PM [employer] NOROVIRUS PCR Routine 10/13/2024 12:31 PM [employer] STOOL CULTURE Routine 10/13/2024 12:31 PM [employer] CRP (ACUTE PHASE) Add-On 10/13/2024 10:16 AM [employer] ERYTHROCYTE SEDIMENTATION RATE Add-On 0 10/13/2024 10:16 AM [employer] EGFR Routine 10/13/2024 4:49 AM [employer] DIFFERENTIAL AUTO Routine 10/13/2024 4:49 AM [employer] FERRITIN Routine 10/13/2024 4:49 AM [employer] IRON PROFILE W/ IBC Routine 10/13/2024 4:49 AM [employer] CBC WITH AUTO DIFFERENTIAL Routine 10/13 4:49 AM [employer] BASIC METABOLIC PANEL Routine 10/13/2024 4:49 AM [employer] PROTIME-INR Routine 10/12/2024 6:25 PM [employer] HEMOGLOBIN AND HEMATOCRIT STAT 2024 5:42 PM [employer] B ABO / RH CONFIRMATION TESTING STAT 10/12/2024 5:42 PM [employer] CT CHEST PE ABDOMEN PELVIS W CONTRAST ED 10/12/2024 3:27 PM [employer] URINALYSIS AND REFLEX TO MICROSCOPIC AND CULTURE STAT 10/12/2024 3:01 PM [employer] MANUAL DIFFERENTIAL STAT 10/12/2024 10:11 AM [employer] EGFR STAT 10/12/2024 10:11 AM [employer] DIFFERENTIAL AUTO STAT 10/12/2024 10:11 AM [employer] ANTIBODY SCREEN STAT 10/12/2024 10:11 AM [employer] ABO/RH STAT 10/12/2024 10:11 AM [employer] TYPE AND SCREEN STAT 10/12/2024 10:11 AM [employer] COMPREHENSIVE METABOLIC PANEL STAT 10:11 AM [employer] CBC WITH AUTO DIFFERENTIAL STAT 10/12 10:11 AM [employer] from Last 3 Months Results * eGFR (10/18/2024 5:10 AM [employer]) eGFR 81 >=60 mL/min/1. 73 m2 Comment: Interpretive Data Reference Interval Normal >/= 90 mL/min/1.73m2 Mildly decreased* 60 - 89 mL/min/1.73m2 Mildly to moderately decreased 45 - 59 mL/min/1.73m2 Moderately to severely decreased 30 - 44 mL/min/1.73m2 Severely decreased 15 - 29 mL/min/1.73m2 Kidney Failure < 15 mL/min/1.73m2 *Relative to young adult level Estimated glomerular filtration rate is determined by the 2020 CKD-EPI equation recommended by the National Kidney Foundation (A Unifying Approach to GFR Estimation: Recommendations of the NKF-ASK Task Force on Reassessing the Inclusion of Race in Diagnosing Kidney Disease, JASN 2020). The CKD-EPI equation should not be used for patients with unstable renal function and has not been validated in children and those over 70. Current interpretive data was last reviewed 2021. Testing performed by: [address] [address] Blood 10/18/2024 5:10 AM [employer] 10/18/2024 5:30 AM [employer] us Umair Garcia MD LAB BLOOD ORDERABLES Cris matias Result [facility] [address] [facility] Department of Laboratories [place], [place] [id number] * (ABNORMAL) Differential, auto (10/18/2024 5:10 AM [employer]) Pathologist [facility] Neutrophil abs 18.4(H) 1.5 - 6.5 K/cumm Comment:Testing performed by : [address] [address] Imm gran abs 0.4(H) 0.0 - 0.1 K/cumm [facility] TREVINO Comment:Testing performed by : [address] [address] Lymphocyte abs 1.5 0.8 - 3.3 K/cumm [facility] TREVINO Comment:Testing performed by : [address] [address] Monocyte abs 1.8(H) 0.2 - 0.8 K/cumm [facility] Comment:Testing performed by : [address] [address] Eosinophil abs 0.2 0.0 - 0.5 K/cumm [facility] Comment:Testing performed by : [address] [address] Basophil abs 0.0 0.0 - 0.1 K/cumm [facility] Comment:Testing performed by : [address] [address] Neutrophil pct 82.6 % [facility] Comment: Interpretive Data Percent cell count reference ranges are not reported, since discordance with absolute values may lead to misinterpretation of CBC data. Current Interpretive Data was last revised on 2017. Testing performed by: [address] [address] Imm gran pct 1.7 % [facility] Comment: Interpretive Data Percent cell count reference ranges are not reported, since discordance with absolute values may lead to misinterpretation of CBC data. Current Interpretive Data was last revised on 2017. Testing performed by: [address] [address] Lymphocyte pct 6.7 % [facility] Comment: Interpretive Data Percent cell count reference ranges are not reported, since discordance with absolute values may lead to misinterpretation of CBC data. Current Interpretive Data was last revised on 2017. Testing performed by: [address] [address] Monocyte pct 8.0 % [facility] Comment: Interpretive Data Percent cell count reference ranges are not reported, since discordance with absolute values may lead to misinterpretation of CBC data. Current Interpretive Data was last revised on 2017. Testing performed by: [address] [address] Eosinophil pct 0.8 % [facility] Comment: Interpretive Data Percent cell count reference ranges are not reported, since discordance with absolute values may lead to misinterpretation of CBC data. Current Interpretive Data was last revised on 2017. Testing performed by: [address] [address] Basophil pct 0.2 % [facility] Comment: Interpretive Data Percent cell count reference ranges are not reported, since discordance with absolute values may lead to misinterpretation of CBC data. Current Interpretive Data was last revised on 2017. Testing performed by: [address] [address] Blood 10/18/2024 5:10 AM [employer] 10/18/2024 5:30 AM [employer] us Umair Garcia MD LAB BLOOD ORDERABLES Cris l Result [facility] [address] [facility] Department [place] [address] * (ABNORMAL) CBC with auto differential (10/18/2024 5:10 AM [employer]) WBC 22.3(H) 3.8 - 9.9 K/cumm Comment:Testing performed by : [address] [address] Hgb 8.0(L) 11.9 - 15.5 g/dL [facility] Comment:Testing performed by : [address] [address] Hct 24.4(L) 35.6 - 45.5 % [facility] Comment:Testing performed by : [address] [address] Plt 229 150 - 400 K/cumm [facility] Comment:Testing performed by : [address] [address] MPV 10.4 9.1 - 12.3 fL [facility] TREVINO Comment:Testing performed by : [address] [address] RBC 2.58(L) 3.90 - 5.20 M/cumm [facility] TREVINO Comment:Testing performed by : [address] [address] MCV 94.6 81.3 - 96.4 fL [facility] TREVINO Comment:Testing performed by : [address] [address] MCH 31.0 27.1 - 33.3 pg [facility] TREVINO Comment:Testing performed by : [address] [address] MCHC 32.8 32.3 - 35.7 g/dL [facility]REVINO Comment:Testing performed by : [address] [address] RDW CV 13.2 11.1 - 14.9 % [facility]INO Comment:Testing performed by : [address] [address] RDW SD 45.1 35.7 - 48.1 fL [facility]VINO Comment:Testing performed by : [address] [address] NRBC abs 0.00 0.00 - 0.01 K/cumm [facility]VINO Comment:Testing performed by : [address] [address] Blood 10/18/2024 5:10 AM [employer] 10/18/2024 5:30 AM [employer] us Umair Garcia MD LAB BLOOD ORDERABLES Cris matias Result [facility] Department [place] [address] * (ABNORMAL) Comprehensive metabolic panel (10/18/2024 5:10 AM [employer]) Sodium 140 135 - 145 mmol/L Comment:Testing performed by : [address] [address] Potassium, pl 3.6 3.3 - 4.9 mmol/L [facility]INO Comment:Testing performed by : [address] [address] Chloride 106 97 - 110 mmol/L [facility]INO Comment:Testing performed by : [address] [address] CO2 26 22 - 32 mmol/L [facility]RE[facility]INO Comment:Testing performed by : [address] [address] Anion gap 8 2 - 15 mmol/L [facility] Comment:Testing performed by : [address] [address] BUN 6 6 - 25 mg/dL [facility] Comment:Testing performed by : [address] [address] Creatinine 0.80 0.60 - 1.10 mg/dL [facility] Comment:Testing performed by : [address] [address] Glucose 122 70 - 199 mg/dL [facility] Comment: Interpretive Data Fasting glucose >/= 126 mg/dl is diagnostic for diabetes. Fasting is defined as no caloric intake for at least 8 hours. Fasting glucose between 100 mg/dl to 125 mg/dl is diagnostic of prediabetes. In a patient with classic symptoms of hyperglycemia or hyperglycemic crisis, a random glucose >/= 200 mg/dl is diagnostic for diabetes. In the absence of unequivocal hyperglycemia, results should be confirmed by repeat testing. The classification and Diagnosis of Diabetes Diabetes Care 2021; 46: S19-S40. Current interpretive data was last revised 2022. Testing performed by: [address] [address] Calcium 7.6(L) 8.5 - 10.3 mg/dL [facility] Comment:Testing performed by : [address] [address] Bilirubin, total <0.2 0.1 - 1.2 mg/dL [facility] Comment:Testing performed by : [address] [address] Protein, pl 5.4(L) 6.5 - 8.5 g/dL [facility] Comment:Testing performed by : [address] [address] Albumin 3.2(L) 3.5 - 5.0 g/dL [facility] Comment:Testing performed by : [address] [address] Alk phos 106 40 - 130 Units/L [facility] Comment:Testing performed by : [address] [address] ALT 10 7 - 45 Units/L [facility] TREVINO Comment:Testing performed by : [facility], [address] [place] [address]., [address] AST 15 10 - 45 Units/L [facility] Comment:Testing performed by : [facility], [address] [place] [address]., [address] Blood 10/18/2024 5:10 AM [employer] 10/18/2024 5:30 AM [employer] us Umair Garcia MD LAB BLOOD ORDERABLES Cris l Result [facility] [address] [place] [address] * Surgical pathology (10/17/2024 2:54 PM [employer]) Tissue (Gastric/Stomach biopsy) 10/17/2024 2:54 PM [employer] Narrative PATHOLOGY [facility] - 10/20/2024 3:35 PM [employer] [facility] Department of Pathology [address] [place] [id number] Note to Patients: This report may contain a detailed description of human tissue sent by a health care provider to the laboratory for pathologic evaluation. The content of this report is essential for diagnosis and may provide important critical findings. This information may be unfamiliar to patients to review without a medical professional present. It is advised that the patient review this report in the presence of a health care provider who can answer questions and explain the details. Final Report Patient Name: REGI SNYDER : 1960 (Age: 64) Gender: F Address: [address] [place] [address] Hospital #: [id number] Service: Medical Location: Patient Type: [facility] INPATIENT Taken: 10/17/2024 Received: 10/17/2024 Accessioned: 10/19/2024 Reported: 10/20/2024 Physician(s): Brain P. Rucker, M.D. Diagnosis: Gastric, biopsy: - Corpus and antral mucosa with no significant pathologic change. - No H. pylori or intestinal metaplasia identified. Rey Lopez M.D. Report Electronically Reviewed and Signed Out By Rey Lopez M.D. 10/20/2024 15:35:50 Specimen(s) Received: A: random gastric biopsies r/o h. pylori Microscopic Description: Microscopic examination is performed. Microscopic examination is performed. Clinical History: The patient is a 64-year-old woman with hematemesis. Operative Procedure: Esophagogastroduodenoscopy biopsy. Gross Description Received in formalin labeled with the patient's identifiers and random gastric biopsies rule out H pylori are six wilson-white tissue fragments ranging from 0.1- 0.4 cm in greatest dimension. Entirely submitted in A1. Jar 0. [facility]/10/19/2024 08:35 PRAVEEN Zuluaga PA([facility])CM Microscopic slide review and interpretation for this case was performed at [facility], Department of Surgical Pathology, [address] [facility], [place] [id number] [id number] CLIA # [id number] us Brain Vijay Rucker MD LAB PATHOLOGY ORDER CARLOS Final Result PATHOLOGY [facility] * EGD (10/17/2024 2:38 PM [employer]) Anatomical Region Laterality Modality Other Narrative Procedure Note Garrett Chan MD - 10/17/2024 2:38 PM [facility] GI ENDOSCOPY Patient Name: Regi Snyder Procedure Date: 10/17/2024 2:38 PM Date of : 1960 Admit Type: Inpatient Age: 64 Gender: Female Attending MD: Garrett Chan , Room: [facility] ENDOSCOPY ROOM 01 Note Status: Finalized Procedure: Upper GI endoscopy Indications: 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 Procedure: Pre-Anesthesia Assessment: - Prior to the procedure, a History and Physicalwas performed, and patient medications and allergieswere reviewed. The patient is competent. The risks and benefits of the procedure and the sedation optionsand risks were discussed with the patient. Allquestions were answered and informed consent was obtained. Patient identification and proposed procedure were verified by the physician, the nurse, the anesthesiologist and the senior manufacturing technician in the pre-procedure area. Mental Status Examination:alert and oriented. ASA Grade Assessment: III - A patient with severe systemic disease. After reviewing the risks and benefits, the patient was deemed in satisfactory condition to undergo the procedure.The anesthesia plan was to use monitored anesthesiacare (MAC). Immediately prior to administration of medications, the patient was re-assessed foradequacy to receive sedatives. The heart rate, respiratory rate, oxygen saturations, blood pressure, adequacyof pulmonary ventilation, and response to care were monitored throughout the procedure. The physical status of the patient was re-assessed after the procedure. The benefits, risks, and alternatives to theprocedure and sedation were discussed and informed consentwas obtained. The scope was passed under direct vision. The GIF-H180J upper endoscope was introducedthrough the and advanced to the. The scope was passed under direct vision. The GIF-H180J upper endoscope was introduced through the mouth, and advanced to the second part of duodenum. The upper GI endoscopy was accomplished without difficulty. The patienttolerated the procedure well. Findings: The examined esophagus was normal. Patchy mildly erythematous mucosa without bleeding was found in the gastric antrum. Biopsies were taken with a cold forceps forHelicobacter pylori testing. Localized mildly erythematous mucosa without active bleeding and withno stigmata of bleeding was found in the duodenal bulb. Impression: - Normal esophagus. - Erythematous mucosa in the antrum. Biopsied. - Erythematous duodenopathy. Recommendation: - [facility]. - Resume regular diet today. - Follow up on pathology results - Avoid NSAIDs - B.i.d. PPI therapy for 2 weeks Garrett Chan M.D. Garrett Chan, 10/17/2024 5:05:30 PM . Number of Addenda: 0 Note Initiated On: 10/17/2024 2:38 PM Recognized by the [place] [employer] for promoting quality in endoscopy Garrett Chan MD ENDOSCOPY PROCEDURES Final Resul t * eGFR (10/17/2024 4:31 AM [employer]) eGFR 81 >=60 mL/min/1. 73 m2 Comment: Interpretive Data Reference Interval Normal >/= 90 mL/min/1.73m2 Mildly decreased* 60 - 89 mL/min/1.73m2 Mildly to moderately decreased 45 - 59 mL/min/1.73m2 Moderately to severely decreased 30 - 44 mL/min/1.73m2 Severely decreased 15 - 29 mL/min/1.73m2 Kidney Failure < 15 mL/min/1.73m2 *Relative to young adult level Estimated glomerular filtration rate is determined by the 2020 CKD-EPI equation recommended by the National Kidney Foundation (A Unifying Approach to GFR Estimation: Recommendations of the NKF-ASK Task Force on Reassessing the Inclusion of Race in Diagnosing Kidney Disease, JASN 2020). The CKD-EPI equation should not be used for patients with unstable renal function and has not been validated in children and those over 70. Current interpretive data was last reviewed 2021. Testing performed by: [facility], [address] [place] [address], [place]., [address] Blood 10/17/2024 4:31 AM [employer] 10/17/2024 5:39 AM [employer] us Umair Garcia MD LAB BLOOD ORDERABLES Cris matias Result [facility] [address] [facility] [place] [address] * (ABNORMAL) Differential, auto (10/17/2024 4:31 AM [employer]) Neutrophil abs 18.9(H) 1.5 - 6.5 K/cumm Comment:Testing performed by : [address] [address] Imm gran abs 0.3(H) 0.0 - 0.1 K/cumm QASIM Comment:Testing performed by : [address] [address] Lymphocyte abs 1.0 0.8 - 3.3 K/cumm QASIM Comment:Testing performed by : [address] [address] Monocyte abs 1.6(H) 0.2 - 0.8 K/cumm QASIM Comment:Testing performed by : [address] [address] Eosinophil abs 0.0 0.0 - 0.5 K/cumm [facility]ASIM Comment:Testing performed by : [address] [address] Basophil abs 0.1 0.0 - 0.1 K/cumm QASIM Comment:Testing performed by : [address] [address] Neutrophil pct 86.6 % [facility]IM Comment: Interpretive Data Percent cell count reference ranges are not reported, since discordance with absolute values may lead to misinterpretation of CBC data. Current Interpretive Data was last revised on 2017. Testing performed by: [address] [address] Imm gran pct 1.4 % [facility] Comment: Interpretive Data Percent cell count reference ranges are not reported, since discordance with absolute values may lead to misinterpretation of CBC data. Current Interpretive Data was last revised on 2017. Testing performed by: [address] [address] Lymphocyte pct 4.5 % [facility] Comment: Interpretive Data Percent cell count reference ranges are not reported, since discordance with absolute values may lead to misinterpretation of CBC data. Current Interpretive Data was last revised on 2017. Testing performed by: [address] [address] Monocyte pct 7.3 % [facility] Comment: Interpretive Data Percent cell count reference ranges are not reported, since discordance with absolute values may lead to misinterpretation of CBC data. Current Interpretive Data was last revised on 2017. Testing performed by: [address] [address] Eosinophil pct 0.0 % [facility] Comment: Interpretive Data Percent cell count reference ranges are not reported, since discordance with absolute values may lead to misinterpretation of CBC data. Current Interpretive Data was last revised on 2017. Testing performed by: [address] [address] Basophil pct 0.2 % [facility] Comment: Interpretive Data Percent cell count reference ranges are not reported, since discordance with absolute values may lead to misinterpretation of CBC data. Current Interpretive Data was last revised on 2017. Testing performed by: [address] [address] Blood 10/17/2024 4:31 AM [employer] 10/17/2024 5:40 AM [employer] us Umair Garcia MD LAB BLOOD ORDERABLES Cris l Result [facility] [address] [facility] Department [place] [address] * (ABNORMAL) CBC with auto differential (10/17/2024 4:31 AM [employer]) WBC 21.8(H) 3.8 - 9.9 K/cumm Comment:Testing performed by : [address] [address] Hgb 7.5(L) 11.9 - 15.5 g/dL [facility]IM Comment:Testing performed by : [address], [address] Hct 22.7(L) 35.6 - 45.5 % [facility]IM Comment:Testing performed by : [address] [address] Plt 202 150 - 400 K/cumm QASIM Comment:Testing performed by : [address], [address] MPV 10.3 9.1 - 12.3 fL [facility]IM Comment:Testing performed by : [address], [address] RBC 2.42(L) 3.90 - 5.20 M/cumm [facility]IM Comment:Testing performed by : [address], [address] MCV 93.8 81.3 - 96.4 fL [facility]IM Comment:Testing performed by : [address], [address] MCH 31.0 27.1 - 33.3 pg [facility]IM Comment:Testing performed by : [address], [address] MCHC 33.0 32.3 - 35.7 g/dL [facility] Comment:Testing performed by : [address], [address] RDW CV 13.0 11.1 - 14.9 % [facility] Comment:Testing performed by : [address], [address] RDW SD 43.6 35.7 - 48.1 fL [facility] Comment:Testing performed by : [address], [address] NRBC abs 0.00 0.00 - 0.01 K/cumm [facility]IM Comment:Testing performed by : [address] [address] Blood 10/17/2024 4:31 AM [employer] 10/17/2024 5:40 AM [employer] Umair Garcia MD LAB BLOOD ORDERABLES Cris matias Result [facility] [address] [facility] Department [place] [address] * (ABNORMAL) Comprehensive metabolic panel (10/17/2024 4:31 AM [employer]) Sodium 139 135 - 145 mmol/L Comment:Testing performed by : [address] [address] Potassium, pl 3.2(L) 3.3 - 4.9 mmol/L [facility]IM Comment:Testing performed by : [address] [address] Chloride 105 97 - 110 mmol/L [facility] Comment:Testing performed by : [address] [address] CO2 23 22 - 32 mmol/L [facility] Comment:Testing performed by : [address] [address] Anion gap 11 2 - 15 mmol/L [facility] Comment:Testing performed by : [address] [address] BUN 3(L) 6 - 25 mg/dL [facility] Comment:Testing performed by : [address] [address] Creatinine 0.80 0.60 - 1.10 mg/dL [facility] Comment:Testing performed by : [address] [address] Glucose 153 70 - 199 mg/dL [facility] Comment: Interpretive Data Fasting glucose >/= 126 mg/dl is diagnostic for diabetes. Fasting is defined as no caloric intake for at least 8 hours. Fasting glucose between 100 mg/dl to 125 mg/dl is diagnostic of prediabetes. In a patient with classic symptoms of hyperglycemia or hyperglycemic crisis, a random glucose >/= 200 mg/dl is diagnostic for diabetes. In the absence of unequivocal hyperglycemia, results should be confirmed by repeat testing. The classification and Diagnosis of Diabetes Diabetes Care 2021; 46: S19-S40. Current interpretive data was last revised 2022. Testing performed by: [address] [address] Calcium 7.6(L) 8.5 - 10.3 mg/dL [facility] Comment:Testing performed by : [address] [address] Bilirubin, total <0.2 0.1 - 1.2 mg/dL [facility] Comment:Testing performed by : [address] [address] Protein, pl 5.5(L) 6.5 - 8.5 g/dL [facility] Comment:Testing performed by : [address] [address] Albumin 3.1(L) 3.5 - 5.0 g/dL [facility] Comment:Testing performed by : [address] [address] Alk phos 89 40 - 130 Units/L [facility] Comment:Testing performed by : [address] [address] ALT 10 7 - 45 Units/L [facility] Comment:Testing performed by : [address] [address] AST 15 10 - 45 Units/L [facility] Comment:Testing performed by : [address] [address] Blood 10/17/2024 4:31 AM [employer] 10/17/2024 5:39 AM [employer] us Umair Garcia MD LAB BLOOD ORDERABLES Cris matias Result [facility] [address] [facility] Department of Laboratories [place], [place] [id number] * eGFR (10/16/2024 4:02 AM [employer]) eGFR 72 >=60 mL/min/1. 73 m2 Comment: Interpretive Data Reference Interval Normal >/= 90 mL/min/1.73m2 Mildly decreased* 60 - 89 mL/min/1.73m2 Mildly to moderately decreased 45 - 59 mL/min/1.73m2 Moderately to severely decreased 30 - 44 mL/min/1.73m2 Severely decreased 15 - 29 mL/min/1.73m2 Kidney Failure < 15 mL/min/1.73m2 *Relative to young adult level Estimated glomerular filtration rate is determined by the 2020 CKD-EPI equation recommended by the National Kidney Foundation (A Unifying Approach to GFR Estimation: Recommendations of the NKF-ASK Task Force on Reassessing the Inclusion of Race in Diagnosing Kidney Disease, JASN 2020). The CKD-EPI equation should not be used for patients with unstable renal function and has not been validated in children and those over 70. Current interpretive data was last reviewed 2021. Testing performed by: [address] [address] Blood 10/16/2024 4:02 AM [employer] 10/16/2024 4:17 AM [employer] us Umair Garcia MD LAB BLOOD ORDERABLES Cris l Result [facility] Department of Laboratories [place], [place] [id number] * (ABNORMAL) Differential, auto (10/16/2024 4:02 AM [employer]) Neutrophil abs 11.1(H) 1.5 - 6.5 K/cumm Comment:Testing performed by : [address] [address] Imm gran abs 0.4(H) 0.0 - 0.1 K/cumm [facility]IM Comment:Testing performed by : [address] [address] Lymphocyte abs 0.6(L) 0.8 - 3.3 K/cumm [facility] Comment:Testing performed by : [address] [address] Monocyte abs 1.4(H) 0.2 - 0.8 K/cumm [facility] Comment:Testing performed by : [address] [address] Eosinophil abs 0.0 0.0 - 0.5 K/cumm [facility] Comment:Testing performed by : [address] [address] Basophil abs 0.0 0.0 - 0.1 K/cumm [facility]IM Comment:Testing performed by : [address] [address] Neutrophil pct 81.9 % [facility] Comment: Interpretive Data Percent cell count reference ranges are not reported, since discordance with absolute values may lead to misinterpretation of CBC data. Current Interpretive Data was last revised on 2017. Testing performed by: [address] [address] Imm gran pct 2.8 % [facility] Comment: Interpretive Data Percent cell count reference ranges are not reported, since discordance with absolute values may lead to misinterpretation of CBC data. Current Interpretive Data was last revised on 2017. Testing performed by: [address] [address] Lymphocyte pct 4.7 % [facility] Comment: Interpretive Data Percent cell count reference ranges are not reported, since discordance with absolute values may lead to misinterpretation of CBC data. Current Interpretive Data was last revised on 2017. Testing performed by: [address] [address] Monocyte pct 10.4 % [facility] Comment: Interpretive Data Percent cell count reference ranges are not reported, since discordance with absolute values may lead to misinterpretation of CBC data. Current Interpretive Data was last revised on 2017. Testing performed by: [address] [address] Eosinophil pct 0.0 % [facility] Comment: Interpretive Data Percent cell count reference ranges are not reported, since discordance with absolute values may lead to misinterpretation of CBC data. Current Interpretive Data was last revised on 2017. Testing performed by: [address] [address] Basophil pct 0.2 % [facility] Comment: Interpretive Data Percent cell count reference ranges are not reported, since discordance with absolute values may lead to misinterpretation of CBC data. Current Interpretive Data was last revised on 2017. Testing performed by: [address] [address] Blood 10/16/2024 4:02 AM [employer] 10/16/2024 4:20 AM [employer] us Umair Garcia MD LAB BLOOD ORDERABLES Cris l Result [facility] [address] [facility] Department [place] [address] * (ABNORMAL) CBC with auto differential (10/16/2024 4:02 AM [employer]) WBC 13.5(H) 3.8 - 9.9 K/cumm Comment:Testing performed by : [address] [address] Hgb 8.8(L) 11.9 - 15.5 g/dL [facility] Comment:Testing performed by : [address] [address] Hct 26.4(L) 35.6 - 45.5 % [facility] Comment:Testing performed by : [address] [address] Plt 174 150 - 400 K/cumm [facility]IM Comment:Testing performed by : [address] [address] MPV 9.6 9.1 - 12.3 fL [facility] Comment:Testing performed by : [address] [address] RBC 2.82(L) 3.90 - 5.20 M/cumm [facility]IM Comment:Testing performed by : [address] [address] MCV 93.6 81.3 - 96.4 fL [facility] Comment:Testing performed by : [address] [address] MCH 31.2 27.1 - 33.3 pg [facility] Comment:Testing performed by : [address] [address] MCHC 33.3 32.3 - 35.7 g/dL CERNER MH Comment:Testing performed by : [address] [address] RDW CV 12.6 11.1 - 14.9 % [facility]IM TREVINO Comment:Testing performed by : [address] [address] RDW SD 42.8 35.7 - 48.1 fL [facility]IM TREVINO Comment:Testing performed by : [address] [address] NRBC abs 0.00 0.00 - 0.01 K/cumm [facility]IM TREVINO Comment:Testing performed by : [address] [address] Blood 10/16/2024 4:02 AM [employer] 10/16/2024 4:20 AM [employer] us Umair Garcia MD LAB BLOOD ORDERABLES Cris matias Result [facility] [address] [facility] Department [place] [address] * (ABNORMAL) Comprehensive metabolic panel (10/16/2024 4:02 AM [employer]) Sodium 135 135 - 145 mmol/L Comment:Testing performed by : [address] [address] Potassium, pl 4.0 3.3 - 4.9 mmol/L [facility]IM TREVINO Comment: Delta - Results Reviewed Testing performed by: [address] [address] Chloride 103 97 - 110 mmol/L [facility]IM TREVINO Comment:Testing performed by : [address] [address] CO2 22 22 - 32 mmol/L [facility]IM TREVINO Comment:Testing performed by : [address] [address] Anion gap 10 2 - 15 mmol/L [facility]IM TREVINO Comment:Testing performed by : [address] [address] BUN 5(L) 6 - 25 mg/dL [facility]IM TREVINO Comment:Testing performed by : [address] [address] Creatinine 0.88 0.60 - 1.10 mg/dL [facility] Comment:Testing performed by : [address] [address] Glucose 156 70 - 199 mg/dL [facility] Comment: Interpretive Data Fasting glucose >/= 126 mg/dl is diagnostic for diabetes. Fasting is defined as no caloric intake for at least 8 hours. Fasting glucose between 100 mg/dl to 125 mg/dl is diagnostic of prediabetes. In a patient with classic symptoms of hyperglycemia or hyperglycemic crisis, a random glucose >/= 200 mg/dl is diagnostic for diabetes. In the absence of unequivocal hyperglycemia, results should be confirmed by repeat testing. The classification and Diagnosis of Diabetes Diabetes Care 202; 46: S19-S40. Current interpretive data was last revised 2022. Testing performed by: [address] [address] Calcium 8.1(L) 8.5 - 10.3 mg/dL [facility] Comment:Testing performed by : [address] [address] Bilirubin, total 0.3 0.1 - 1.2 mg/dL [facility] Comment:Testing performed by : [address] [address] Protein, pl 6.0(L) 6.5 - 8.5 g/dL [facility] Comment:Testing performed by : [address] [address] Albumin 3.3(L) 3.5 - 5.0 g/dL [facility] Comment:Testing performed by : [address] [address] Alk phos 90 40 - 130 Units/L [facility] Comment:Testing performed by : [address] [address] ALT 15 7 - 45 Units/L [facility] Comment:Testing performed by : [address] [address] AST 21 10 - 45 Units/L [facility] Comment:Testing performed by : [address], [place]., [address] Blood 10/16/2024 4:02 AM [employer] 10/16/2024 4:17 AM [employer] Umair Garcia MD LAB BLOOD ORDERABLES Cris l Result Performing Organization Address City/[facility] Co de Phone Number [facility] [address] [facility] [place] [address] * Stool culture Stool Rectum (10/15/2024 4:01 PM [employer]) Direct Specimen Exam Shiga Toxin Testing: Antigen detection assay for Shiga-toxin NEGATIVE for Shiga Toxin 1 and Shiga Toxin 2. Comment:Testing performed by : [facility], [address] [place] [address]., [address] Report Final Report: No growth of enteric bacterial pathogens [facility] Comment:Testing performed by : [facility], [address] [place] [address]., [address] Stool (Rectum) 10/15/2024 4: 01 PM [employer] 10/15/2024 7:37 PM [employer] Narrative QASIM - 10/19/2024 8:18 AM [employer] Specimen received in a sterile container. Testing performed by [facility] Microbiology Laboratory ([phone]). Routine stool cultures include procedures to detect Salmonella, Shigella, Edwardsiella, Aeromonas, Pleisiomonas, Campylobacter, Yersinia, E. coli O157, and Shiga-like toxins. Vibrio is cultured only upon special request. If Vibrio is suspected, please call the laboratory at [phone]. Interpretive data was last updated December 31, 2016. us Anu Wagn NP LAB MICROBIOLOGY - G ENERAL ORDERABLES Final Result Performing Organization Address City/[facility]/ZIP Co de Phone Number [facility] [address] [facility] Department [place] [address] * HIV 1/2 Antibody plus p24 Antigen Blood (10/15/2024 8:38 AM [employer]) HIV 1/2 ab + p24 ag Nonreactive Nonreactive Comment:Nonreactive for HIV- 1 antigen and HIV-1/HIV-2 antibodies. No laboratory evidence of HIV infection. If acute HIV infection is suspected, consider testing for HIV-1 RNA. Current interpretive data was last revised on 22. Blood 10/15/2024 8:38 AM [employer] 10/15/2024 12:33 PM [employer] us Aristeo Damon MD LAB MICROBIOLOGY - GENERAL O RDERABLES Final Result Performing Organization Address [facility] Co mt Phone Number [facility]IM [address] [facility] [place] [address] * eGFR (10/15/2024 4:36 AM [employer]) eGFR 61 >=60 mL/min/1. 73 m2 Comment: Interpretive Data Reference Interval Normal >/= 90 mL/min/1.73m2 Mildly decreased* 60 - 89 mL/min/1.73m2 Mildly to moderately decreased 45 - 59 mL/min/1.73m2 Moderately to severely decreased 30 - 44 mL/min/1.73m2 Severely decreased 15 - 29 mL/min/1.73m2 Kidney Failure < 15 mL/min/1.73m2 *Relative to young adult level Estimated glomerular filtration rate is determined by the 2020 CKD-EPI equation recommended by the National Kidney Foundation (A Unifying Approach to GFR Estimation: Recommendations of the NKF-ASK Task Force on Reassessing the Inclusion of Race in Diagnosing Kidney Disease, JASN 2020). The CKD-EPI equation should not be used for patients with unstable renal function and has not been validated in children and those over 70. Current interpretive data was last reviewed 2021. Testing performed by: [facility], [address] [place] [address]., [address] Blood 10/15/2024 4:36 AM [employer] 10/15/2024 4:56 AM [employer] us Umair Garcia MD LAB BLOOD ORDERABLES Cris l Result Performing Organization Address City/[facility]/ZIP Co de Phone Number [facility] [address] [facility] [place] [address] * (ABNORMAL) Differential, auto (10/15/2024 4:36 AM [employer]) Neutrophil abs 1.0(L) 1.5 - 6.5 K/cumm Comment:Testing performed by : [address] [address] Imm gran abs 0.1 0.0 - 0.1 K/cumm QASIM Comment:Testing performed by : [address] [address] Lymphocyte abs 0.9 0.8 - 3.3 K/cumm [facility]IM Comment:Testing performed by : [address] [address] Monocyte abs 0.8 0.2 - 0.8 K/cumm [facility]IM Comment:Testing performed by : [address] [address] Eosinophil abs 0.0 0.0 - 0.5 K/cumm [facility]IM Comment:Testing performed by : [address] [address] Basophil abs 0.0 0.0 - 0.1 K/cumm [facility] Comment:Testing performed by : [address] [address] Neutrophil pct 36.8 % [facility] Comment: Interpretive Data Percent cell count reference ranges are not reported, since discordance with absolute values may lead to misinterpretation of CBC data. Current Interpretive Data was last revised on 2017. Testing performed by: [address] [address] Imm gran pct 1.8 % [facility] Comment: Interpretive Data Percent cell count reference ranges are not reported, since discordance with absolute values may lead to misinterpretation of CBC data. Current Interpretive Data was last revised on 2017. Testing performed by: [address] [address] Lymphocyte pct 32.1 % [facility] Comment: Interpretive Data Percent cell count reference ranges are not reported, since discordance with absolute values may lead to misinterpretation of CBC data. Current Interpretive Data was last revised on 2017. Testing performed by: [address] [address] Monocyte pct 28.2 % [facility] Comment: Interpretive Data Percent cell count reference ranges are not reported, since discordance with absolute values may lead to misinterpretation of CBC data. Current Interpretive Data was last revised on 2017. Testing performed by: [address] [address] Eosinophil pct 0.7 % [facility] Comment: Interpretive Data Percent cell count reference ranges are not reported, since discordance with absolute values may lead to misinterpretation of CBC data. Current Interpretive Data was last revised on 2017. Testing performed by: [address] [address] Basophil pct 0.4 % QASIM Comment: Interpretive Data Percent cell count reference ranges are not reported, since discordance with absolute values may lead to misinterpretation of CBC data. Current Interpretive Data was last revised on 2017. Testing performed by: [address] [address] Blood 10/15/2024 4:36 AM [employer] 10/15/2024 4:56 AM [employer] us Umair Garcia MD LAB BLOOD ORDERABLES Cris l Result [facility] [address] [facility] Department of Laboratories [place], [place] [id number] * (ABNORMAL) CBC with auto differential (10/15/2024 4:36 AM [employer]) WBC 2.8(L) 3.8 - 9.9 K/cumm Comment:Testing performed by : [address] [address] Hgb 8.6(L) 11.9 - 15.5 g/dL QASIM TREVINO Comment:Testing performed by : [address] [address] Hct 25.6(L) 35.6 - 45.5 % QASIM Comment:Testing performed by : [address], [address] Plt 161 150 - 400 K/cumm QASIM Comment:Testing performed by : [address] [address] MPV 8.8(L) 9.1 - 12.3 fL QASIM Comment:Testing performed by : [address], [address] RBC 2.76(L) 3.90 - 5.20 M/cumm QASIM Comment:Testing performed by : [address], [address] MCV 92.8 81.3 - 96.4 fL QASIM Comment:Testing performed by : [address], [address] MCH 31.2 27.1 - 33.3 pg QASIM Comment:Testing performed by : [address], [address] MCHC 33.6 32.3 - 35.7 g/dL QASIM Comment:Testing performed by : [address], [address] RDW CV 12.8 11.1 - 14.9 % QASIM Comment:Testing performed by : [address], [address] RDW SD 41.8 35.7 - 48.1 fL QASIM Comment:Testing performed by : [address], [address] NRBC abs 0.00 0.00 - 0.01 K/cumm QASIM Comment:Testing performed by : [address], [address] Blood 10/15/2024 4:36 AM [employer] 10/15/2024 4:56 AM [employer] us Umair Garcia MD LAB BLOOD ORDERABLES Cris matias Result QASIM [address] [facility] [place] [address] * Magnesium (10/15/2024 4:36 AM [employer]) [facility] Magnesium 1.7 1.4 - 2.5 mg/dL Comment:Testing performed by : [address] [address] Blood 10/15/2024 4:36 AM [employer] 10/15/2024 4:56 AM [employer] us Umair Garcia MD LAB BLOOD ORDERABLES Cris l Result QASIM [facility] [place] [address] * (ABNORMAL) Comprehensive metabolic panel (10/15/2024 4:36 AM [employer]) [facility] Sodium 134(L) 135 - 145 mmol/L Comment:Testing performed by : [address] [address] Potassium, pl 2.8(L) 3.3 - 4.9 mmol/L QASIM Comment:Testing performed by : [address] [address] Chloride 99 97 - 110 mmol/L QASIM Comment:Testing performed by : [address] [address] CO2 25 22 - 32 mmol/L QASIM Comment:Testing performed by : [address] [address] Anion gap 10 2 - 15 mmol/L QASIM Comment:Testing performed by : [address] [address] BUN 6 6 - 25 mg/dL QASIM Comment:Testing performed by : [address] [address] Creatinine 1.01 0.60 - 1.10 mg/dL QASIM Comment:Testing performed by : [address] [address] Glucose 104 70 - 199 mg/dL QASIM Comment: Interpretive Data Fasting glucose >/= 126 mg/dl is diagnostic for diabetes. Fasting is defined as no caloric intake for at least 8 hours. Fasting glucose between 100 mg/dl to 125 mg/dl is diagnostic of prediabetes. In a patient with classic symptoms of hyperglycemia or hyperglycemic crisis, a random glucose >/= 200 mg/dl is diagnostic for diabetes. In the absence of unequivocal hyperglycemia, results should be confirmed by repeat testing. The classification and Diagnosis of Diabetes Diabetes Care 202; 46: S19-S40. Current interpretive data was last revised 2022. Testing performed by: [address] [address] Calcium 8.0(L) 8.5 - 10.3 mg/dL QASIM Comment:Testing performed by : [address] [address] Bilirubin, total 0.4 0.1 - 1.2 mg/dL QASIM Comment:Testing performed by : [address] [address] Protein, pl 5.6(L) 6.5 - 8.5 g/dL QASIM Comment:Testing performed by : [address] [address] Albumin 3.2(L) 3.5 - 5.0 g/dL QASIM Comment:Testing performed by : [address] [address] Alk phos 80 40 - 130 Units/L QASIM Comment:Testing performed by : [address] [address] ALT 17 7 - 45 Units/L QASIM Comment:Testing performed by : [address] [address] AST 23 10 - 45 Units/L QASIM Comment:Testing performed by : [address] [address] Blood 10/15/2024 4:36 AM [employer] 10/15/2024 4:56 AM [employer] us Umair Garcia MD LAB BLOOD ORDERABLES Cris matias Result [facility] [address] [facility] Department [place] [address] * (ABNORMAL) CBC without differential (10/14/2024 9:36 AM [employer]) [facility] Signature WBC 1.8(L) 3.8 - 9.9 K/cumm Comment:Testing performed by : [address] [address] Hgb 9.3(L) 11.9 - 15.5 g/dL QASIM Comment:Testing performed by : [address] [address] Hct 28.4(L) 35.6 - 45.5 % QASIM Comment:Testing performed by : [address] [address] Plt 203 150 - 400 K/cumm QASIM Comment:Testing performed by : [address] [address] MPV 8.5(L) 9.1 - 12.3 fL QASIM Comment:Testing performed by : [address] [address] RBC 3.04(L) 3.90 - 5.20 M/cumm QASIM Comment:Testing performed by : [address] [address] MCV 93.4 81.3 - 96.4 fL QASIM Comment:Testing performed by : [address] [address] MCH 30.6 27.1 - 33.3 pg QASIM Comment:Testing performed by : [address] [address] MCHC 32.7 32.3 - 35.7 g/dL QASIM Comment:Testing performed by : [address] [address] RDW CV 13.2 11.1 - 14.9 % QASIM Comment:Testing performed by : [address] [address] RDW SD 44.0 35.7 - 48.1 fL QASIM TREVINO Comment:Testing performed by : [facility], [address] [place] [address]., [address] NRBC abs 0.00 0.00 - 0.01 K/cumm QASIM TREVINO Comment:Testing performed by : [facility], [address] [place] [address]., [address] Blood 10/14/2024 9:36 AM [employer] 10/14/2024 9:43 AM [employer] us Brain Rucker MD LAB BLOOD ORDERABLE S Final Result QASIM [address] [facility] Department [place] [address] * Microbiology Callback Stool (10/13/2024 12:31 PM [employer]) TestName Giardia Ag QASIM TREVINO Comment:Testing performed by : [facility], [address] [place] [address], [address] Date Notified 20241012 QASIM TRVEINO Comment:Testing performed by : [facility], [address] [place] [address], [address] Time Notified 843 QASIM TREVINO Comment:Testing performed by : [facility], [address] [place] [address], [address] Called/Read Back Bernadine TREVINO Comment:Testing performed by : [facility], [address] [place] [address], [address] Called By Jun TRIPP Comment:Testing performed by : [address] [address] Stool 10/13/2024 12:3 1 PM [employer] 10/13/2024 3:40 PM [employer] us Sherie Hernandes NP LAB MICROBIOLOGY - GENERAL MELODIE QUINTERO Final Result QASIM TREVINO [address] [facility] Department [place] [address] * Norovirus PCR Stool (10/13/2024 12:31 PM [employer]) [facility] Norovirus GI RNA Not Detected Not Detected [facility] Comment:Testing performed by : [facility], [address] [place] [address]., [address] Norovirus GII RNA Not Detected Not Detected QASIM Comment: Interpretive data: Testing performed at the [facility] Laboratory using the Multigig Xpert Norovirus Assay. This assay uses nucleic acid amplification to detect RNA from norovirus. This test is cleared by the [place] Food and Drug Administration for unformed stool specimens. The performance characteristics for unformed stool specimens have been verified by the performing laboratory. The performance characteristics of rectal swab specimens have also been validated and verified by the performing laboratory. Positive Xpert Norovirus results do not rule out other causes of infectious diarrhea. Assay interference may be observed in the presence of Barium sulfate and Benzalkonium chloride. Mutations or polymorphisms in primer or probe binding regions may affect detection of new or unknown norovirus variants resulting in a false negative result. Results from the Xpert Norovirus Assay should be interpreted in conjunction with other laboratory and clinical data available to the clinician. Current interpretive data was last revised on 2024. Testing performed by: [facility], [address] [place] [address]., [address] Stool 10/13/2024 12:3 1 PM [employer] 10/13/2024 4:19 PM [employer] Sherie Hernandes NP LAB MICROBIOLOGY - GENERAL MELODIE QUINTERO Final Result QASIM [address] [facility] Department [place] [address] [facility] * (ABNORMAL) Cryptosporidium and Giardia antigen assay Stool (10/13/2024 12:31 PM [employer]) [facility] Giardia Ag Positive(A) Negative Comment:Testing performed by : [facility], [address] [place] [address]., [address] Cryptosporidium Ag Negative Negative QASIM Comment: Interpretive data: Testing performed by the [facility] using an immunoassay that detects Cryptosporidium and Giardia antigens in stool specimens. If comprehensive examination for ova and parasites is required, please request Ova and Parasite Examination . Testing performed by: [facility], [address] [place]., [address] Stool 10/13/2024 12:3 1 PM [employer] 10/13/2024 3:40 PM [employer] Narrative QASIM - 10/14/2024 8:39 AM [employer] Received in Formalin Sherie Hernandes LAB MICROBIOLOGY - GENERAL ORDE [facility] Final Result QASIM [address] [facility] Department [place] [address] * Stool culture Stool (10/13/2024 12:31 PM [employer]) Direct Specimen Exam Shiga Toxin Testing: Antigen detection assay for Shiga-toxin NEGATIVE for Shiga Toxin 1 and Shiga Toxin 2. Comment:Testing performed by : [facility], [address] [place]., [address] Report Final Report: No growth of enteric bacterial pathogens QASIM TREVINO Comment:Testing performed by : [facility], [address] [place] [address]., [address] Stool 10/13/2024 12:3 1 PM [employer] 10/13/2024 3:38 PM [employer] Narrative QASIM - 10/17/2024 9:12 AM [employer] Specimen was received in [facility]. Testing performed by [facility] ([phone]). Routine stool cultures include procedures to detect Salmonella, Shigella, Edwardsiella, Aeromonas, Pleisiomonas, Campylobacter, Yersinia, E. coli O157, and Shiga-like toxins. Vibrio is cultured only upon special request. If Vibrio is suspected, please call the laboratory at [phone]. Interpretive data was last updated December 31, 2016. us Sherie Hernandes NP LAB MICROBIOLOGY - GENERAL ORDE [facility] Final Result Performing Organization Address [facility] Co de Phone Number QASIM [address] [place] [employer] [place] [address] * (ABNORMAL) Erythrocyte sedimentation rate (10/13/2024 10:16 AM [employer]) Pathologist [facility] Erythrocyte sedimentation rate 34(H) 1 - 30 mm/hr Comment:Testing performed by : [address] [address] Blood 10/13/2024 10:1 6 AM [employer] 10/13/2024 10:21 AM [employer] us Sherie Hernandes NP LAB BLOOD ORDERABLES Final Resu lt Performing Organization Address [facility] Co de Phone Number [address] [address] * (ABNORMAL) CRP (acute phase) (10/13/2024 10:16 AM [employer]) [facility] CRP 35.6(H) <=10.0 mg/L Comment:Testing performed by : [address] [address] Blood 10/13/2024 10:1 6 AM [employer] 10/13/2024 10:21 AM [employer] Sherie Hernandes [employer] MANAGER LAB BLOOD ORDERABLES Final Resu lt Performing Organization Address [facility] Co de Phone Number QASIM [address] [place] [employer] [place] [address] * eGFR (10/13/2024 4:49 AM [employer]) Pathologist [facility] eGFR 71 >=60 mL/min/1. 73 m2 Comment: Interpretive Data Reference Interval Normal >/= 90 mL/min/1.73m2 Mildly decreased* 60 - 89 mL/min/1.73m2 Mildly to moderately decreased 45 - 59 mL/min/1.73m2 Moderately to severely decreased 30 - 44 mL/min/1.73m2 Severely decreased 15 - 29 mL/min/1.73m2 Kidney Failure < 15 mL/min/1.73m2 *Relative to young adult level Estimated glomerular filtration rate is determined by the 2020 CKD-EPI equation recommended by the National Kidney Foundation (A Unifying Approach to GFR Estimation: Recommendations of the NKF-ASK Task Force on Reassessing the Inclusion of Race in Diagnosing Kidney Disease, JASN 2020). The CKD-EPI equation should not be used for patients with unstable renal function and has not been validated in children and those over 70. Current interpretive data was last reviewed 2021. Testing performed by: [address] [address] Blood 10/13/2024 4:49 AM [employer] 10/13/2024 5:40 AM [employer] us Jaime Limon MD LAB BLOOD ORDERABLES Final Re sult QASIM [address] [facility] Department [place] [address] * Differential, auto (10/13/2024 4:49 AM [employer]) Neutrophil abs 3.4 1.5 - 6.5 K/cumm Comment:Testing performed by : [address] [address] Imm gran abs 0.0 0.0 - 0.1 K/cumm QASIM Comment:Testing performed by : [address] [address] Lymphocyte abs 1.2 0.8 - 3.3 K/cumm QASIM Comment:Testing performed by : [address] [address] Monocyte abs 0.2 0.2 - 0.8 K/cumm QASIM TREVINO Comment:Testing performed by : [address] [address] Eosinophil abs 0.0 0.0 - 0.5 K/cumm QASIM Comment:Testing performed by : [address] [address] Basophil abs 0.0 0.0 - 0.1 K/cumm QASIM Comment:Testing performed by : [address] [address] Neutrophil pct 70.7 % [facility] Comment: Interpretive Data Percent cell count reference ranges are not reported, since discordance with absolute values may lead to misinterpretation of CBC data. Current Interpretive Data was last revised on 2017. Testing performed by: [address] [address] Imm gran pct 0.6 % [facility] Comment: Interpretive Data Percent cell count reference ranges are not reported, since discordance with absolute values may lead to misinterpretation of CBC data. Current Interpretive Data was last revised on 2017. Testing performed by: [address] [address] Lymphocyte pct 24.1 % [facility] Comment: Interpretive Data Percent cell count reference ranges are not reported, since discordance with absolute values may lead to misinterpretation of CBC data. Current Interpretive Data was last revised on 2017. Testing performed by: [address] [address] Monocyte pct 4.0 % [facility] Comment: Interpretive Data Percent cell count reference ranges are not reported, since discordance with absolute values may lead to misinterpretation of CBC data. Current Interpretive Data was last revised on 2017. Testing performed by: [address] [address] Eosinophil pct 0.2 % [facility] Comment: Interpretive Data Percent cell count reference ranges are not reported, since discordance with absolute values may lead to misinterpretation of CBC data. Current Interpretive Data was last revised on 2017. Testing performed by: [address] [address] Basophil pct 0.4 % [facility] Comment: Interpretive Data Percent cell count reference ranges are not reported, since discordance with absolute values may lead to misinterpretation of CBC data. Current Interpretive Data was last revised on 2017. Testing performed by: [address] [address] Blood 10/13/2024 4:49 AM [employer] 10/13/2024 5:46 AM [employer] Jaime Limon MD LAB BLOOD ORDERABLES Final Re sult Performing Organization Address [facility] Co de Phone Number QASIM [address] [facility] [place] [address] * (ABNORMAL) Iron profile w/ IBC (10/13/2024 4:49 AM [employer]) Pathologist [facility] Iron 144 35 - 145 mcg/dL Comment:Testing performed by : [address] [address] TIBC 251 250 - 400 mcg/dL QASIM TREVINO Comment:Testing performed by : [address] [address] Transferrin saturation 57(H) 20 - 50 % QASIM TREVINO Comment:Testing performed by : [address] [address] Blood 10/13/2024 4:49 AM [employer] 10/13/2024 5:40 AM [employer] Jaime Limon MD LAB BLOOD ORDERABLES Final Re sult Performing Organization Address [facility] Co de Phone Number QASIM [address] [facility] [place] [address] * (ABNORMAL) CBC with auto differential (10/13/2024 4:49 AM [employer]) Pathologist [facility] WBC 4.8 3.8 - 9.9 K/cumm Comment:Testing performed by : [address] [address] Hgb 9.9(L) 11.9 - 15.5 g/dL QASIM TREVINO Comment:Testing performed by : [address] [address] Hct 29.9(L) 35.6 - 45.5 % QASIM TREVINO Comment:Testing performed by : [address] [address] Plt 269 150 - 400 K/cumm QASIM TREVINO Comment:Testing performed by : [address] [address] MPV 8.8(L) 9.1 - 12.3 fL QASIM Comment:Testing performed by : [address] [address] RBC 3.16(L) 3.90 - 5.20 M/cumm QASIM Comment:Testing performed by : [address] [address] MCV 94.6 81.3 - 96.4 fL QASIM Comment:Testing performed by : [address], [address] MCH 31.3 27.1 - 33.3 pg QASIM Comment:Testing performed by : [address], [address] MCHC 33.1 32.3 - 35.7 g/dL QASIM Comment:Testing performed by : [address], [address] RDW CV 13.3 11.1 - 14.9 % QASIM Comment:Testing performed by : [address], [address] RDW SD 45.5 35.7 - 48.1 fL QASIM Comment:Testing performed by : [address], [address] NRBC abs 0.00 0.00 - 0.01 K/cumm QASIM Comment:Testing performed by : [address], [address] Blood 10/13/2024 4:49 AM [employer] 10/13/2024 5:46 AM [employer] us Jaime Limon MD LAB BLOOD ORDERABLES Final Re sult QASIM TREVINO [address] [facility] [place] [address] * (ABNORMAL) Ferritin (10/13/2024 4:49 AM [employer]) Ferritin 587(H) 15 - 150 ng/mL Comment:Testing performed by : [address] [address] Blood 10/13/2024 4:49 AM [employer] 10/13/2024 5:40 AM [employer] us Jaime Limon MD LAB BLOOD ORDERABLES Final Re sult [facility] [address] [facility] [place] [address] * Basic metabolic panel (10/13/2024 4:49 AM [employer]) Pathologist [facility] Sodium 137 135 - 145 mmol/L Comment:Testing performed by : [address] [address] Potassium, pl 3.5 3.3 - 4.9 mmol/L QASIM Comment:Testing performed by : [address] [address] Chloride 103 97 - 110 mmol/L QASIM Comment:Testing performed by : [address] [address] CO2 22 22 - 32 mmol/L QASIM Comment:Testing performed by : [address] [address] Anion gap 12 2 - 15 mmol/L QASIM Comment:Testing performed by : [address] [address] BUN 8 6 - 25 mg/dL QASIM Comment:Testing performed by : [address] [address] Creatinine 0.90 0.60 - 1.10 mg/dL QASIM Comment:Testing performed by : [address] [address] Glucose 96 70 - 199 mg/dL QASIM Comment: Interpretive Data Fasting glucose >/= 126 mg/dl is diagnostic for diabetes. Fasting is defined as no caloric intake for at least 8 hours. Fasting glucose between 100 mg/dl to 125 mg/dl is diagnostic of prediabetes. In a patient with classic symptoms of hyperglycemia or hyperglycemic crisis, a random glucose >/= 200 mg/dl is diagnostic for diabetes. In the absence of unequivocal hyperglycemia, results should be confirmed by repeat testing. The classification and Diagnosis of Diabetes Diabetes Care 202; 46: S19-S40. Current interpretive data was last revised 2022. Testing performed by: [facility], [address] [place] [address]., [address] Calcium 8.9 8.5 - 10.3 mg/dL QASIM Comment:Testing performed by : [address] [address] Blood 10/13/2024 4:49 AM [employer] 10/13/2024 5:40 AM [employer] Jaime Limon MD LAB BLOOD ORDERABLES Final Re sult Performing Organization Address City/[facility] Co de Phone Number [facility] [address] [facility] [place] [address] * Protime-INR (10/12/2024 6:25 PM [employer]) PT 12.9 12.0 - 14.6 sec Comment:Testing performed by : [address] [address] INR 1.0 0.9 - 1.2 QASIM Comment: Ref Range High Interpretive data Oral anticoagulant therapeutic ranges: Venous thromboembolism prophylaxis or treatment: 2.0-3.0 CARDIOLOGY Standard range: 2.0-3.0 High-intensity range: 2.5-3.5 Refer to indication-specific guidelines for appropriate target ranges for prosthetic heart valve replacement. Current interpretive data was last revised on 2019. Testing performed by: [address] [address] Blood 10/12/2024 6:25 PM [employer] 10/12/2024 6:39 PM [employer] Anthony Otero MD LAB BLOOD ORDERABLE S Final Result Performing Organization Address City/[facility] Co de Phone Number [facility] [address] [place] [address] [place] [address] * ABO / Rh Confirmation Testing (10/12/2024 5:42 PM [employer]) ABO/Rh Confirmation B Positive [facility] Comment:Testing performed by : [address] [address] Blood 10/12/2024 5:42 PM [employer] 10/12/2024 5:47 PM [employer] us Alecia ENCISO LAB BLOOD ORDERABLES Final Resu lt Performing Organization Address City/[facility]/ZIP Co de Phone Number QASIM [address] [address] MHB * (ABNORMAL) Hemoglobin and hematocrit (10/12/2024 5:42 PM [employer]) Pathologist [facility] Hgb 10.6(L) 11.9 - 15.5 g/dL Comment:Testing performed by : [facility], [address] [place] [address]., [address] Hct 32.1(L) 35.6 - 45.5 % QASIM Comment:Testing performed by : [address] [address] Blood 10/12/2024 5:42 PM [employer] 10/12/2024 5:47 PM [employer] Anthony Otero MD LAB BLOOD ORDERABLE S Final Result Performing Organization Address City/[facility]/ZIP Co de Phone Number QASIM [address] [address] * CT Chest PE (CTA) Abdomen Pelvis W Contrast (10/12/2024 3:27 PM [employer]) Anatomical Region Laterality Modality Body N/A Computed Tomogra phy 10/12/2024 3:57 PM [employer] Narrative 10/12/2024 4:36 PM [employer] EXAM DESCRIPTION: CT CHEST PE (CTA) ABDOMEN PELVIS W CONTRAST REASON FOR STUDY: Abnormal findings in other body fluids and substances diarrhea x 3-4 wks. Pt states pt has now noticed bloody stool that is dark red. Pt also vomited and noticed some blood in her vomit. 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 Pt states she is also having some dizziness. Had chemo trmt last Wed. TECHNIQUE: CT angiogram of the chest with routine abdomen and pelvis performed with intravenous and without oral contrast using helical scanning technique with dynamic intravenous contrast injection. Reconstructed coronal and sagittal MPR images reviewed. All images stored on PACS. 3D MIP images of the chest rendered on scanning unit and reviewed at time of interpretation. Automated exposure control was used as a dose optimization technique for this examination. CONTRAST TYPE/DOSE: 100mL of IOVERSOL 350 MG IODINE/ML INTRAVENOUS SYRINGE injected via intravenous COMPARISON: None FINDINGS: CHEST CHEST VASCULATURE: No acute pulmonary thromboembolism. LUNGS: The central airway is patent. Spiculated opacity left upper lobe posteriorly measuring a maximum of 1.2 x 0.7 cm (axial image 30). PLEURA: No effusion. No pneumothorax. MEDIASTINUM/CHRISTINA: No identified masses or abnormal nodes. HEART: Heart size is normal with small pericardial effusion. Scattered coronary artery calcified atherosclerosis. AXILLA: No adenopathy. CHEST WALL: No masses. No subcutaneous air. HARDWARE/LINES/TUBES: Right-sided chemo port with tip in the distal SVC. MUSCULOSKELETAL CHEST: No significant abnormality. ABDOMEN/PELVIS LIVER: Normal size. No identified cystic or solid masses. GALLBLADDER: Surgically absent BILE DUCTS: Mild prominence of the central intrahepatic and extrahepatic biliary system likely due to reservoir effect. SPLEEN: Normal size. No focal lesions. PANCREAS: No identified cystic or solid masses. No significant calcifications. No adjacent inflammation or peripancreatic fluid collections. Pancreatic duct not dilated. ADRENALS: Normal. KIDNEYS/URINARY TRACT: No identified significant cystic or solid masses. No visualized stones. No hydronephrosis or hydroureter. Symmetric enhancement. Urinary bladder is unremarkable. GI: No dilated bowel loops. No obvious wall thickening. Scattered colonic diverticulosis. Marked wall thickening and mucosal hyperenhancement involving the descending colon and rectosigmoid. This is suggestive underlying colitis. PERITONEUM: No ascites or free air. RETROPERITONEUM: No mass or adenopathy. REPRODUCTIVE: No significant abnormality. VASCULATURE ABDOMEN: No abdominal aortic aneurysm. MUSCULOSKELETAL ABDOMEN PELVIS: No acute finding. OTHER: No significant abnormality. IMPRESSION: No evidence of pulmonary embolism to the subsegmental level. Spiculated opacity left upper lobe posteriorly measuring a maximum of 1.2 x 0.7 cm. This may relate to the patient's known malignancy. Comparison is unavailable.. Small pericardial effusion. Marked wall thickening and mucosal hyperenhancement involving the descending colon and rectosigmoid. This is suggestive of underlying colitis. Scattered colonic diverticulosis. THIS IS AN ELECTRONICALLY VERIFIED FINAL REPORT 10/12/2024 4:36 PM - Electronically signed by Nelson Dangelo M.D. JA: SAMIA Report ID: [id number] Reading Location: [id number] Procedure Note Nelson Dangelo MD - 10/12/2024 EXAM DESCRIPTION: CT CHEST PE (CTA) ABDOMEN PELVIS W CONTRAST REASON FOR STUDY: Abnormal findings in other body fluids and substances diarrhea x 3-4 wks. Pt states pt has now noticed bloody stool that isdark red. Pt also vomited and noticed some blood in her vomit. Pt has hx oflung ca with brain and bone mets. Pt states she is also having some dizziness. Had chemo trmt last Sat. TECHNIQUE: CT angiogram of the chest with routine abdomen and pelvisperformed with intravenous and without oral contrast using helical scanningtechnique with dynamic intravenous contrast injection. Reconstructed coronal and sagittal MPR images reviewed. All images stored on PACS. 3D MIP images ofthe chest rendered on scanning unit and reviewed at time of interpretation. Automated exposure control was used as a dose optimization technique forthis examination. CONTRAST TYPE/DOSE: 100mL of IOVERSOL 350 MG IODINE/ML INTRAVENOUS SYRINGE injected via intravenous COMPARISON: None FINDINGS: CHEST CHEST VASCULATURE: No acute pulmonary thromboembolism. LUNGS: The central airway is patent. Spiculated opacity left upper lobe posteriorly measuring a maximum of 1.2 x 0.7 cm (axial image 30). PLEURA: No effusion. No pneumothorax. MEDIASTINUM/CHRISTINA: No identified masses or abnormal nodes. HEART: Heart size is normal with small pericardial effusion. Scattered coronary artery calcified atherosclerosis. AXILLA: No adenopathy. CHEST WALL: No masses. No subcutaneous air. HARDWARE/LINES/TUBES: Right-sided chemo port with tip in the distal SVC. MUSCULOSKELETAL CHEST: No significant abnormality. ABDOMEN/PELVIS LIVER: Normal size. No identified cystic or solid masses. GALLBLADDER: Surgically absent BILE DUCTS: Mild prominence of the central intrahepatic and extrahepatic biliary system likely due to reservoir effect. SPLEEN: Normal size. No focal lesions. PANCREAS: No identified cystic or solid masses. No significant calcifications. No adjacent inflammation or peripancreatic fluidcollections. Pancreatic duct not dilated. ADRENALS: Normal. KIDNEYS/URINARY TRACT: No identified significant cystic or solid masses.No visualized stones. No hydronephrosis or hydroureter. Symmetricenhancement. Urinary bladder is unremarkable. GI: No dilated bowel loops. No obvious wall thickening. Scatteredcolonic diverticulosis. Marked wall thickening and mucosal hyperenhancementinvolving the descending colon and rectosigmoid. This is suggestive underlyingcolitis. PERITONEUM: No ascites or free air. RETROPERITONEUM: No mass or adenopathy. REPRODUCTIVE: No significant abnormality. VASCULATURE ABDOMEN: No abdominal aortic aneurysm. MUSCULOSKELETAL ABDOMEN PELVIS: No acute finding. OTHER: No significant abnormality. IMPRESSION: No evidence of pulmonary embolism to the subsegmental level. Spiculated opacity left upper lobe posteriorly measuring a maximum of 1.2x 0.7 cm. This may relate to the patient's known malignancy. Comparison is unavailable.. Small pericardial effusion. Marked wall thickening and mucosal hyperenhancement involving thedescending colon and rectosigmoid. This is suggestive of underlying colitis. Scattered colonic diverticulosis. THIS IS AN ELECTRONICALLY VERIFIED FINAL REPORT 10/12/2024 4:36 PM - Electronically signed by Nelson Dangelo M.D. JA: SAMIA Report ID: [id number] Reading Location: [place] [address] us Wilmar Swann MD IM CT PROCEDURES Final Result * Urinalysis reflex to microscopic and culture Urine (10/12/2024 3:01 PM [employer]) Color, ur Straw Yellow Comment:Testing performed by : [facility], [address] [place] [address], [place]., [address] Clarity, ur Clear Clear QASIM Comment:Testing performed by : [address], [place]., [address] Specific gravity, ur 1.004 1.003 - 1.030 QASIM Comment:Testing performed by : [address], [place]., [address] pH, urine 5.5 QASIM Comment: Interpretive Data U rine pH is affected by diet, medications, systemic acid-base disturbances, and renal tubular function. pH may affect urinary stone formation. For example, urine pH below 6.0 may help reduce the tendency for calcium phosphate stones and pH greater than 6.0 may reduce the tendency for uric acid stone formation. Source: [facility] [employer] Current Interpretive Data was last revised on 2017 Testing performed by: [address] [address] Protein, ur ql Negative Negative QASIM Comment:Testing performed by : [address] [address] Glucose, ur ql Negative Negative QASIM Comment:Testing performed by : [address], [place]., [address] Ketones, ur Negative Negative QASIM Comment:Testing performed by : [address] [address] Bilirubin, ur Negative Negative QASIM Comment:Testing performed by : [address] [address] Blood, ur Negative Negative QASIM Comment:Testing performed by : [address] [address] Urobilinogen, ur <2.0 <2.0 mg/dL QASIM Comment:Testing performed by : [address] [address] Nitrite, ur Negative Negative QASIM Comment:Testing performed by : [address] [address] Leukocyte esterase, ur Negative Negative QASIM Comment:Testing performed by : [address] [address] UA reflex comment Reflex conditions for microscopic UA and culture not met. QASIM Comment:Testing performed by : [address] [address] Urine 10/12/2024 3:01 PM [employer] 10/12/2024 3:08 PM [employer] Alecia ENCISO LAB MICROBIOLOGY - GENERAL ORDE RABLES Final Result Performing Organization Address City/[facility]/ZIP Co de Phone Number QASIM [address] [place] [address] * eGFR (10/12/2024 10:11 AM [employer]) eGFR 71 >=60 mL/min/1. 73 m2 Comment: Interpretive Data Reference Interval Normal >/= 90 mL/min/1.73m2 Mildly decreased* 60 - 89 mL/min/1.73m2 Mildly to moderately decreased 45 - 59 mL/min/1.73m2 Moderately to severely decreased 30 - 44 mL/min/1.73m2 Severely decreased 15 - 29 mL/min/1.73m2 Kidney Failure < 15 mL/min/1.73m2 *Relative to young adult level Estimated glomerular filtration rate is determined by the 2020 CKD-EPI equation recommended by the National Kidney Foundation (A Unifying Approach to GFR Estimation: Recommendations of the NKF-ASK Task Force on Reassessing the Inclusion of Race in Diagnosing Kidney Disease, JASN 2020). The CKD-EPI equation should not be used for patients with unstable renal function and has not been validated in children and those over 70. Current interpretive data was last reviewed 2021. Testing performed by: [address] [address] Blood 10/12/2024 10:1 1 AM [employer] 10/12/2024 10:23 AM [employer] us Alecia ENCISO LAB BLOOD ORDERABLES Final Resu lt Performing Organization Address City/[facility]/ZIP Co de Phone Number QASIM [address] Department [place] [address] * (ABNORMAL) Differential, auto (10/12/2024 10:11 AM [employer]) Pathologist [facility] Neutrophil abs 6.4 1.5 - 6.5 K/cumm Comment:Testing performed by : [address] [address] Imm gran abs 0.0 0.0 - 0.1 K/cumm QASIM Comment:Testing performed by : [address], [place]., [address] Lymphocyte abs 1.1 0.8 - 3.3 K/cumm QASIM Comment:Testing performed by : [address], [place]., [address] Monocyte abs 0.1(L) 0.2 - 0.8 K/cumm [facility] Comment:Testing performed by : [address] [address] Eosinophil abs 0.0 0.0 - 0.5 K/cumm QASIM Comment:Testing performed by : [address] [address] Basophil abs 0.0 0.0 - 0.1 K/cumm [facility] Comment:Testing performed by : [address] [address] Neutrophil pct 83.1 % [facility] Comment: Interpretive Data Percent cell count reference ranges are not reported, since discordance with absolute values may lead to misinterpretation of CBC data. Current Interpretive Data was last revised on 2017. Testing performed by: [address] [address] Imm gran pct 0.5 % [facility] Comment: Interpretive Data Percent cell count reference ranges are not reported, since discordance with absolute values may lead to misinterpretation of CBC data. Current Interpretive Data was last revised on 2017. Testing performed by: [address] [address] Lymphocyte pct 14.2 % C[facility] Comment: Interpretive Data Percent cell count reference ranges are not reported, since discordance with absolute values may lead to misinterpretation of CBC data. Current Interpretive Data was last revised on 2017. Testing performed by: [address] [address] Monocyte pct 1.6 % CERNER Comment: Interpretive Data Percent cell count reference ranges are not reported, since discordance with absolute values may lead to misinterpretation of CBC data. Current Interpretive Data was last revised on 2017. Testing performed by: [address] [address] Eosinophil pct 0.3 % QASIM TREVINO Comment: Interpretive Data Percent cell count reference ranges are not reported, since discordance with absolute values may lead to misinterpretation of CBC data. Current Interpretive Data was last revised on 2017. Testing performed by: [address] [address] Basophil pct 0.3 % QASIM TREVINO Comment: Interpretive Data Percent cell count reference ranges are not reported, since discordance with absolute values may lead to misinterpretation of CBC data. Current Interpretive Data was last revised on 2017. Testing performed by: [address] [address] Blood 10/12/2024 10:1 1 AM [employer] 10/12/2024 10:23 AM [employer] us Alecia ENCISO LAB BLOOD ORDERABLES Final Resu lt QASIM [address] [facility] [place] [address] * (ABNORMAL) CBC with auto differential (10/12/2024 10:11 AM [employer]) WBC 7.7 3.8 - 9.9 K/cumm Comment:Testing performed by : [address] [address] Hgb 10.9(L) 11.9 - 15.5 g/dL QASIM TREVINO Comment:Testing performed by : [address] [address] Hct 32.6(L) 35.6 - 45.5 % QASIM TREVINO Comment:Testing performed by : [address] [address] Plt 333 150 - 400 K/cumm QASIM TREVINO Comment:Testing performed by : [address] [address] MPV 8.8(L) 9.1 - 12.3 fL QASIM Comment:Testing performed by : [address] [address] RBC 3.45(L) 3.90 - 5.20 M/cumm QASIM TREVINO Comment:Testing performed by : [address] [address] MCV 94.5 81.3 - 96.4 fL QASIM Comment:Testing performed by : [address] [address] MCH 31.6 27.1 - 33.3 pg QASIM Comment:Testing performed by : [address] [address] MCHC 33.4 32.3 - 35.7 g/dL QASIM Comment:Testing performed by : [address], [address] RDW CV 13.4 11.1 - 14.9 % QASIM Comment:Testing performed by : [address], [address] RDW SD 45.5 35.7 - 48.1 fL QASIM Comment:Testing performed by : [address], [address] NRBC abs 0.00 0.00 - 0.01 K/cumm QASIM Comment:Testing performed by : [address] [address] Blood 10/12/2024 10:1 1 AM [employer] 10/12/2024 10:23 AM [employer] us Alecia ENCISO LAB BLOOD ORDERABLES Final Resu lt QASIM [address] [facility] Department [place] [address] * ABO/Rh (10/12/2024 10:11 AM [employer]) ABO/Rh B Positive Comment:Testing performed by : [address] [address] Blood 10/12/2024 10:1 1 AM [employer] 10/12/2024 10:23 AM [employer] Narrative QASIM - 10/12/2024 11:14 AM [employer] Has the patient had Daratumumab or Isatuximab in the past 6 months?->Unknown Alecia ENCISO LAB BLOOD BANK TEST ORDERABLES Final Result Performing Organization Address [facility] de Phone Number QASIM [address] [address] * Manual Differential (10/12/2024 10:11 AM [employer]) Pathologist [facility] Differential Auto Comment:Testing performed by : [address] [address] RBC morphology Consistent with RBC Indicies QASIM Comment:Testing performed by : [address] [address] Platelet estimate Automated Count Confirmed QASIM Comment:Testing performed by : [address] [address] Blood 10/12/2024 10:1 1 AM [employer] 10/12/2024 10:23 AM [employer] Alecia ENCISO LAB BLOOD ORDERABLES Final Resu lt Performing Organization Address [facility] de Phone Number MORALES[address] [address] * Antibody screen (10/12/2024 10:11 AM [employer]) Sunitha, indirect, Gel Interpretation Negative ABSC Comment:Testing performed by : [address] [address] Blood 10/12/2024 10:1 1 AM [employer] 10/12/2024 10:23 AM [employer] Narrative QASIM - 10/12/2024 11:14 AM [employer] Has the patient had Daratumumab or Isatuximab in the past 6 months?->Unknown Alecia ENCISO LAB BLOOD BANK TEST ORDERABLES Final Result QASIM [address] [facility] Department [place] [address] * (ABNORMAL) Comprehensive metabolic panel (10/12/2024 10:11 AM [employer]) Sodium 131(L) 135 - 145 mmol/L Comment:Testing performed by : [address] [address] Potassium, pl 3.6 3.3 - 4.9 mmol/L QASIM Comment:Testing performed by : [address] [address] Chloride 96(L) 97 - 110 mmol/L QASIM Comment:Testing performed by : [address] [address] CO2 19(L) 22 - 32 mmol/L QASIM Comment:Testing performed by : [address] [address] Anion gap 16(H) 2 - 15 mmol/L QASIM Comment:Testing performed by : [address] [address] BUN 9 6 - 25 mg/dL QASIM Comment:Testing performed by : [address] [address] Creatinine 0.90 0.60 - 1.10 mg/dL QASIM Comment:Testing performed by : [address] [address] Glucose 153 70 - 199 mg/dL QASIM Comment: Interpretive Data Fasting glucose >/= 126 mg/dl is diagnostic for diabetes. Fasting is defined as no caloric intake for at least 8 hours. Fasting glucose between 100 mg/dl to 125 mg/dl is diagnostic of prediabetes. In a patient with classic symptoms of hyperglycemia or hyperglycemic crisis, a random glucose >/= 200 mg/dl is diagnostic for diabetes. In the absence of unequivocal hyperglycemia, results should be confirmed by repeat testing. The classification and Diagnosis of Diabetes Diabetes Care 202; 46: S19-S40. Current interpretive data was last revised 2022. Testing performed by: [facility], [address] [place] [address]., [address] Calcium 9.0 8.5 - 10.3 mg/dL QASIM Comment:Testing performed by : [address] [address] Bilirubin, total 0.3 0.1 - 1.2 mg/dL QASIM Comment:Testing performed by : [address] [address] Protein, pl 6.3(L) 6.5 - 8.5 g/dL QASIM Comment:Testing performed by : [address] [address] Albumin 3.8 3.5 - 5.0 g/dL QASIM Comment:Testing performed by : [address] [address] Alk phos 97 40 - 130 Units/L QASIM Comment:Testing performed by : [address] [address] ALT 21 7 - 45 Units/L QASIM Comment:Testing performed by : [address] [address] AST 25 10 - 45 Units/L QASIM Comment:Testing performed by : [address] [address] Blood 10/12/2024 10:1 1 AM [employer] 10/12/2024 10:23 AM [employer] us Alecia ENCISO LAB BLOOD ORDERABLES Final Resu lt MORALESJOVAN [address] [facility] Department [place] [address] from Last 3 Months Insurance [employer] MED[employer] Advance Directives For more information, please contact: [phone] Documents on File Type Date Recorded Patient [employer] Finger Buff Material Expl anation ADVANCE DIRECTIVE 10/19/2024 2:15 PM [employer] * Full Code (Latest Code Status on File) Date Activated Date Inactivated Comments 10/17/2024 1:06 PM 10/18/2024 2:44 PM * Full Code Date Activated Date Inactivated Comments 10/14/2024 1:23 PM 10/17/2024 1:06 PM * LIMITED - No CPR Date Activated Date Inactivated Comments 10/12/2024 9:32 PM 10/14/2024 1:23 PM Question Answer Comments Provide aggressive medical m anagement before a full cardiopulmonary arrest occurs. Use antibiotics, IV Fluids, and medical treatment unless specifically selected below: No intubation Care Teams Script Supervisor Relationship Specialty Start Date End Date No, Physician PCP - General 10/12/24
--- OUTSIDE RECORDS SUMMARY | 2024-11-09 14:37 | XMS_ITS | Referral Summary ---
Author Organization [facility] Address [address] [place] [address] Care Team Providers Care Armament Repairer Name Role Phone No, Physician Primary Care Provider [phone] Encounters Date Type Department Care Team Description 5 Telephone [facility] Gastroenterology at [address] [place] [address] Enrike Camacho MD 5 5:25 PM VIDEO GAME TESTER - 5 10:39 AM VIDEO GAME TESTER Hospital Encounter [facility] [address] [place] [id number] Anthony Kang MD Brother, Michele, MD Lopez, Manuel Emilio, MD Visconti, John L., Gastrointestinal hemorrhage, unspecified gastrointestinal hemorrhage type (Primary Dx); Drug and toxin-induced diarrhea; Chemotherapy-induced neutropenia; Hematemesis, unspecified whether nausea present Discharge Disposition: Discharge to home or self care 5 2:39 PM VIDEO GAME TESTER Anesthesia Event [facility] GI Endo [address] [place] [place] [id number] Dario Soria MD 5 2:00 PM VIDEO GAME TESTER - 5 2:40 PM VIDEO GAME TESTER Surgery [facility] GI Endo [address] [place] [place] [address] Brain Rucker ra, MD ESOPHAGOGASTRODUODENOSCOPY BIOPSY 5 2:00 PM VIDEO GAME TESTER - 5 2:30 PM VIDEO GAME TESTER Surgery [facility] GI Endo [address] [place] [address] Brain Rucker ra, MD Not Performed COLONOSCOPY from Last 3 Months Allergies No known active allergies Medications dexAMETHasone [...] unspecified gastrointestinal hemorrhage type 10/12/2024 Hematemesis 10/12/2024 Social History Tobacco Use Types Packs/Day Years Used Date Smoking Tobacco: Former Cigarettes Tobacco Cessation:Counseling Given: Not Answered [facility] Utilities Answer Date Recorded In the past 12 months has [employer], gas, oil, or water company threatened to [...] often do you attend chur ch or oriental orthodox services? Never 10/13/2024 Do you belong to any clubs o r organizations such as catholic groups, unions, fraternal or athletic groups, or [...] No 10/13/2024 Housing Stability Vital Sign Answer Benjamín e Recorded In the last 12 months, was t here a time when you were not able to pay the mortgage or rent on time? No 10/13/2024 In the past 12 months, how m any times have you moved where you were living? 0 10/13/2024 At any time in the past 12 m [facility], were you homeless or living in a alf (including now)? No 10/13/2024 Personal Safety Answer Date Recorded Have you ever been in or are you currently in a harmful physical or emotional relationship or is someone making you feel afraid or unsafe? Denies 10/12/2024 Comments Unknown Sex and Gender Information Value Date Recorded Sex Assigned at Not on file Legal Sex Female 12:32 PM VIDEO GAME TESTER Gender Identity Not on file Sexual Orientation Not on file Last Filed Vital Signs Vital Sign Reading Time Taken Comments Blood Pressure 103/71 10/18/2024 7:35 AM VIDEO GAME TESTER Pulse 60 10/18/2024 7:35 AM VIDEO GAME TESTER Temperature 36.4 C (97.5 F) 10/18/2024 7:35 AM VIDEO GAME TESTER Respiratory Rate 15 10/18/2024 7:35 AM VIDEO GAME TESTER Oxygen Saturation 100% 10/18/2024 7:35 AM VIDEO GAME TESTER Inhaled Oxygen Concentration - - Weight 62.1 kg (137 lb) 10/17/2024 1:47 PM VIDEO GAME TESTER Height 154.9 cm (5' 1 ) 10/12/2024 9:29 PM VIDEO GAME TESTER Body Mass Index 25.89 10/12/2024 9:29 PM VIDEO GAME TESTER Plan of Treatment Not on file Medical Devices Implanted Type Area Employment Case Manager Device Identifier Shelf Expiration Date Model / Serial / Lot Port Right: Chest Wall Procedures Procedure Name Priority Date/Time Associated Diagnosis Comments EGFR Routine 10/18/2024 5:10 AM VIDEO GAME TESTER DIFFERENTIAL AUTO Routine 10/18/2024 5:10 AM VIDEO GAME TESTER COMPREHENSIVE METABOLIC PANEL Routine 5:10 AM VIDEO GAME TESTER CBC WITH AUTO DIFFERENTIAL Routine 10/18 5:10 AM VIDEO GAME TESTER SURGICAL PATHOLOGY Routine 10/17/2024 2:54 PM VIDEO GAME TESTER Hematemesis, unspecified whether nausea present ESOPHAGOGASTRODUODENOSCOPY BIOPSY 10/17/2024 2:41 PM VIDEO GAME TESTER Hematemesis, unspecified whether nausea present EGD 10/17/2024 2:38 PM VIDEO GAME TESTER EGFR Routine 10/17/2024 4:31 AM VIDEO GAME TESTER DIFFERENTIAL AUTO Routine 10/17/2024 4:31 AM VIDEO GAME TESTER COMPREHENSIVE METABOLIC PANEL Routine 4:31 AM VIDEO GAME TESTER CBC WITH AUTO DIFFERENTIAL Routine 10/17 4:31 AM VIDEO GAME TESTER EGFR Routine 10/16/2024 4:02 AM VIDEO GAME TESTER DIFFERENTIAL AUTO Routine 10/16/2024 4:02 AM VIDEO GAME TESTER COMPREHENSIVE METABOLIC PANEL Routine 4:02 AM VIDEO GAME TESTER CBC WITH AUTO DIFFERENTIAL Routine 10/16 4:02 AM VIDEO GAME TESTER STOOL CULTURE Routine 10/15/2024 4:01 PM VIDEO GAME TESTER HIV 1/2 ANTIBODY PLUS P24 ANTIGEN Routine 10/15/2024 8:38 AM VIDEO GAME TESTER MAGNESIUM Routine 10/15/2024 4:36 AM VIDEO GAME TESTER EGFR Routine 10/15/2024 4:36 AM VIDEO GAME TESTER DIFFERENTIAL AUTO Routine 10/15/2024 4:36 AM VIDEO GAME TESTER COMPREHENSIVE METABOLIC PANEL Routine 4:36 AM VIDEO GAME TESTER CBC WITH AUTO DIFFERENTIAL Routine 10/15 4:36 AM VIDEO GAME TESTER CBC WITHOUT DIFFERENTIAL STAT 025 9:36 AM VIDEO GAME TESTER MICROBIOLOGY CALLBACK Routine 10/13/2024 12:31 PM VIDEO GAME TESTER CRYPTOSPORIDIUM AND GIARDIA ANTIGEN ASSAY Routine 10/13/2024 12:31 PM VIDEO GAME TESTER NOROVIRUS PCR Routine 10/13/2024 12:31 PM VIDEO GAME TESTER STOOL CULTURE Routine 10/13/2024 12:31 PM VIDEO GAME TESTER CRP (ACUTE PHASE) Add-On 10/13/2024 10:16 AM VIDEO GAME TESTER ERYTHROCYTE SEDIMENTATION RATE Add-On 0 10/13/2024 10:16 AM VIDEO GAME TESTER EGFR Routine 10/13/2024 4:49 AM VIDEO GAME TESTER DIFFERENTIAL AUTO Routine 10/13/2024 4:49 AM VIDEO GAME TESTER FERRITIN Routine 10/13/2024 4:49 AM VIDEO GAME TESTER IRON PROFILE W/ IBC Routine 10/13/2024 4:49 AM VIDEO GAME TESTER CBC WITH AUTO DIFFERENTIAL Routine 10/13 4:49 AM VIDEO GAME TESTER BASIC METABOLIC PANEL Routine 10/13/2024 4:49 AM VIDEO GAME TESTER PROTIME-INR Routine 10/12/2024 6:25 PM VIDEO GAME TESTER HEMOGLOBIN AND HEMATOCRIT STAT 2024 5:42 PM VIDEO GAME TESTER B ABO / RH CONFIRMATION TESTING STAT 10/12/2024 5:[address] CHEST PE ABDOMEN PELVIS W CONTRAST ED 10/12/2024 3:27 PM VIDEO GAME TESTER URINALYSIS AND REFLEX TO MICROSCOPIC AND CULTURE STAT 10/12/2024 3:01 PM VIDEO GAME TESTER MANUAL DIFFERENTIAL STAT 10/12/2024 10:11 AM VIDEO GAME TESTER EGFR STAT 10/12/2024 10:11 AM VIDEO GAME TESTER DIFFERENTIAL AUTO STAT 10/12/2024 10:11 AM VIDEO GAME TESTER ANTIBODY SCREEN STAT 10/12/2024 10:11 AM VIDEO GAME TESTER ABO/RH STAT 10/12/2024 10:11 AM VIDEO GAME TESTER TYPE AND SCREEN STAT 10/12/2024 10:11 AM VIDEO GAME TESTER COMPREHENSIVE METABOLIC PANEL STAT 10:11 AM VIDEO GAME TESTER CBC WITH AUTO DIFFERENTIAL STAT 10/12 10:11 AM VIDEO GAME TESTER from Last 3 Months Results * eGFR (10/18/2024 5:10 AM VIDEO GAME TESTER) eGFR 81 >=60 mL/min/1. 73 m2 Comment: [...] was last reviewed 2021. Testing performed by: [address] [address] Blood 10/18/2024 5:10 AM VIDEO GAME TESTER 10/18/2024 5:30 AM VIDEO GAME TESTER us Umair Garcia MD LAB BLOOD ORDERABLES Cris matias Result [facility] [address] [facility] Department of [place] [address] * (ABNORMAL) Differential, auto (10/18/2024 5:10 AM VIDEO GAME TESTER) Neutrophil abs 18.4(H) 1.5 - 6.5 K/cumm Comment:Testing performed by : [address] [address] Imm gran abs 0.4(H) 0.0 - 0.1 K/cumm [facility]IM Comment:Testing performed by : [address] [address] Lymphocyte abs 1.5 0.8 - 3.3 K/cumm Q[facility]IM Comment:Testing performed by : [address] [address] Monocyte abs 1.8(H) 0.2 - 0.8 K/cumm [facility] Comment:Testing performed by : [address] [address] Eosinophil abs 0.2 0.0 - 0.5 K/cumm [facility] Comment:Testing performed by : [address] [address] Basophil abs 0.0 0.0 - 0.1 K/cumm [facility] Comment:Testing performed by : [address] [address] Neutrophil pct 82.6 % [facility] Comment: Interpretive Data Percent cell count reference ranges are not reported, since discordance with absolute values may lead to misinterpretation of CBC data. Current Interpretive Data was last revised on 2017. Testing performed by: [address] [address] Imm gran pct 1.7 % [facility] Comment: Interpretive Data Percent cell count reference ranges are not reported, since discordance with absolute values may lead to misinterpretation of CBC data. Current Interpretive Data was last revised on 2017. Testing performed by: [address] [address] Lymphocyte pct 6.7 % [facility] Comment: Interpretive Data Percent cell count reference ranges are not reported, since discordance with absolute values may lead to misinterpretation of CBC data. Current Interpretive Data was last revised on 2017. Testing performed by: [address] [address] Monocyte pct 8.0 % [facility] Comment: Interpretive Data Percent cell count reference ranges are not reported, since discordance with absolute values may lead to misinterpretation of CBC data. Current Interpretive Data was last revised on 2017. Testing performed by: [address] [address] Eosinophil pct 0.8 % [facility] Comment: Interpretive Data Percent cell count reference ranges are not reported, since discordance with absolute values may lead to misinterpretation of CBC data. Current Interpretive Data was last revised on 2017. Testing performed by: [address] [address] Basophil pct 0.2 % [facility] Comment: Interpretive Data Percent cell count reference ranges are not reported, since discordance with absolute values may lead to misinterpretation of CBC data. Current Interpretive Data was last revised on 2017. Testing performed by: [address] [address] Blood 10/18/2024 5:10 AM VIDEO GAME TESTER 10/18/2024 5:30 AM VIDEO GAME TESTER us Umair Garcia MD LAB BLOOD ORDERABLES Cris florencio Result [facility] [address] [facility] Department of Laboratories [place], [place] [id number] * (ABNORMAL) CBC with auto differential (10/18/2024 5:10 AM VIDEO GAME TESTER) [facility] Signature WBC 22.3(H) 3.8 - 9.9 K/cumm Comment:Testing performed by : [address] [address] Hgb 8.0(L) 11.9 - 15.5 g/dL [facility] Comment:Testing performed by : [address] [address] Hct 24.4(L) 35.6 - 45.5 % [facility] Comment:Testing performed by : [address] [address] Plt 229 150 - 400 K/cumm [facility]IM Comment:Testing performed by : [address] [address] MPV 10.4 9.1 - 12.3 fL [facility]IM Comment:Testing performed by : [address], [address] RBC 2.58(L) 3.90 - 5.20 M/cumm [facility]IM Comment:Testing performed by : [address] [address] MCV 94.6 81.3 - 96.4 fL [facility] Comment:Testing performed by : [address] [address] MCH 31.0 27.1 - 33.3 pg [facility]IM Comment:Testing performed by : [address] [address] MCHC 32.8 32.3 - 35.7 g/dL [facility]IM Comment:Testing performed by : [address], [address] RDW CV 13.2 11.1 - 14.9 % [facility] Comment:Testing performed by : [address] [address] RDW SD 45.1 35.7 - 48.1 fL [facility] Comment:Testing performed by : [address], [address] NRBC abs 0.00 0.00 - 0.01 K/cumm [facility] Comment:Testing performed by : [address] [address] Blood 10/18/2024 5:10 AM VIDEO GAME TESTER 10/18/2024 5:30 AM VIDEO GAME TESTER us Umair Garcia MD LAB BLOOD ORDERABLES Cris florencio Result [facility] [address] [facility] Department [place] [address] * (ABNORMAL) Comprehensive metabolic panel (10/18/2024 5:10 AM VIDEO GAME TESTER) Sodium 140 135 - 145 mmol/L Comment:Testing performed by : [address] [address] Potassium, pl 3.6 3.3 - 4.9 mmol/L [facility] Comment:Testing performed by : [address] [address] Chloride 106 97 - 110 mmol/L [facility]IM Comment:Testing performed by : [address] [address] CO2 26 22 - 32 mmol/L [facility] Comment:Testing performed by : [address] [address] Anion gap 8 2 - 15 mmol/L [facility] Comment:Testing performed by : [address] [address] BUN 6 6 - 25 mg/dL [facility]IM Comment:Testing performed by : [address] [address] Creatinine 0.80 0.60 - 1.10 mg/dL [facility] Comment:Testing performed by : [address] [address] Glucose 122 70 - 199 mg/dL [facility] Comment: Interpretive [...] was last revised 2022. Testing performed by: [address] [address] Calcium 7.6(L) 8.5 - 10.3 mg/dL [facility] Comment:Testing performed by : [address] [address] Bilirubin, total <0.2 0.1 - 1.2 mg/dL [facility] Comment:Testing performed by : [address] [address] Protein, pl 5.4(L) 6.5 - 8.5 g/dL [facility] Comment:Testing performed by : [address] [address] Albumin 3.2(L) 3.5 - 5.0 g/dL [facility] Comment:Testing performed by : [address] [address] Alk phos 106 40 - 130 Units/L [facility] Comment:Testing performed by : [address] [address] ALT 10 7 - 45 Units/L [facility] Comment:Testing performed by : [address] [address] AST 15 10 - 45 Units/L [facility] Comment:Testing performed by : [address] [address] Blood 10/18/2024 5:10 AM VIDEO GAME TESTER 10/18/2024 5:30 AM VIDEO GAME TESTER us Umair Garcia MD LAB BLOOD ORDERABLES Cris l Result [facility] [address] [facility] Department [place] [address] * Surgical pathology (10/17/2024 2:54 PM VIDEO GAME TESTER) Tissue (Gastric/Stomach biopsy) 10/17/2024 2:54 PM VIDEO GAME TESTER Narrative PATHOLOGY [facility] - 10/20/2024 3:35 PM VIDEO GAME TESTER [facility] Department of Pathology [address] [place], [place] [id number] Note to Patients: This report may contain [...] : 1960 (Age: 64) Gender: F Address: [address] [place] [address] Hospital #: [id number] Service: Medical Location: Patient Type: [facility] INPATIENT Taken: 10/17/2024 Received: 10/17/2024 Accessioned: 10/19/2024 Reported: 10/20/2024 Physician(s): Brain Rucker M.D. Diagnosis: Gastric, biopsy: - Corpus and [...] dimension. Entirely submitted in A1. Jar [facility]. [facility]10/19/2024 08:35 PRAVEEN Zuluaga PA(ASCP)CM Microscopic slide review and interpretation for this case was performed at [facility], Department of Surgical Pathology, [address] [facility] [place], [place] [id number], [place] [address] CLIA # [id number] us Brain Rucker MD LAB PATHOLOGY ORDER CARLOS Final Result PATHOLOGY [facility] * EGD (10/17/2024 2:38 PM VIDEO GAME TESTER) Anatomical Region Laterality Modality Other Narrative Procedure Note Garrett Chan MD - 10/17/2024 2:38 PM CST [facility] GI ENDOSCOPY Patient Name: Regi Snyder Procedure Date: 10/17/2024 2:38 PM Date of : 1960 Admit Type: Inpatient Age: 64 Gender: Female Attending MD: Garrett Chan , Room: [facility] ENDOSCOPY ROOM 01 Note Status: Finalized Procedure: [...] physician, the nurse, the anesthesiologist and the robotics testing technician in the pre-procedure area. Mental Status [...] On: 10/17/2024 2:38 PM Recognized by the [employer] for promoting quality in endoscopy us Garrett Chan MD ENDOSCOPY PROCEDURES Final Resul t * eGFR (10/17/2024 4:31 AM VIDEO GAME TESTER) eGFR 81 >=60 mL/min/1. 73 m2 Comment: [...] was last reviewed 2021. Testing performed by: [address] [address] Blood 10/17/2024 4:31 AM VIDEO GAME TESTER 10/17/2024 5:39 AM VIDEO GAME TESTER us Umair Garcia MD LAB BLOOD ORDERABLES Cris l Result Performing Organization Address City/State/[facility] Co de Phone Number [facility] [address] [facility] Department [place] [address] * (ABNORMAL) Differential, auto (10/17/2024 4:31 AM VIDEO GAME TESTER) Neutrophil abs 18.9(H) 1.5 - 6.5 K/cumm Comment:Testing performed by : [address] [address] Imm gran abs 0.3(H) 0.0 - 0.1 K/cumm [facility] TREVINO Comment:Testing performed by : [address] [address] Lymphocyte abs 1.0 0.8 - 3.3 K/cumm [facility] Comment:Testing performed by : [address] [address] Monocyte abs 1.6(H) 0.2 - 0.8 K/cumm [facility] Comment:Testing performed by : [address], [place]., [address] Eosinophil abs 0.0 0.0 - 0.5 K/cumm [facility] Comment:Testing performed by : [address], [place]., [address] Basophil abs 0.1 0.0 - 0.1 K/cumm [facility] Comment:Testing performed by : [address] [address] Neutrophil pct 86.6 % [facility] Comment: Interpretive Data Percent cell count reference ranges are not reported, since discordance with absolute values may lead to misinterpretation of CBC data. Current Interpretive Data was last revised on 2017. Testing performed by: [address] [address] Imm gran pct 1.4 % [facility] Comment: Interpretive Data Percent cell count reference ranges are not reported, since discordance with absolute values may lead to misinterpretation of CBC data. Current Interpretive Data was last revised on 2017. Testing performed by: [address] [address] Lymphocyte pct 4.5 % [facility] Comment: Interpretive Data Percent cell count reference ranges are not reported, since discordance with absolute values may lead to misinterpretation of CBC data. Current Interpretive Data was last revised on 2017. Testing performed by: [address] [address] Monocyte pct 7.3 % [facility] Comment: Interpretive Data Percent cell count reference ranges are not reported, since discordance with absolute values may lead to misinterpretation of CBC data. Current Interpretive Data was last revised on 2017. Testing performed by: [address] [address] Eosinophil pct 0.0 % [facility] Comment: Interpretive Data Percent cell count reference ranges are not reported, since discordance with absolute values may lead to misinterpretation of CBC data. Current Interpretive Data was last revised on 2017. Testing performed by: [address] [address] Basophil pct 0.2 % [facility] Comment: Interpretive Data Percent cell count reference ranges are not reported, since discordance with absolute values may lead to misinterpretation of CBC data. Current Interpretive Data was last revised on 2017. Testing performed by: [address] [address] Blood 10/17/2024 4:31 AM VIDEO GAME TESTER 10/17/2024 5:40 AM VIDEO GAME TESTER us Umair Garcia MD LAB BLOOD ORDERABLES Cris l Result [place] [address] [facility] Department [place] [address] * (ABNORMAL) CBC with auto differential (10/17/2024 4:31 AM VIDEO GAME TESTER) WBC 21.8(H) 3.8 - 9.9 K/cumm Comment:Testing performed by : [address] [address] Hgb 7.5(L) 11.9 - 15.5 g/dL [facility] TREVINO Comment:Testing performed by : [address] [address] Hct 22.7(L) 35.6 - 45.5 % [facility] Comment:Testing performed by : [address] [address] Plt 202 150 - 400 K/cumm [facility] TREVINO Comment:Testing performed by : [address] [address] MPV 10.3 9.1 - 12.3 fL [facility] TREVINO Comment:Testing performed by : [address] [address] RBC 2.42(L) 3.90 - 5.20 M/cumm [facility] TREVINO Comment:Testing performed by : [address] [address] MCV 93.8 81.3 - 96.4 fL [facility] TREVINO Comment:Testing performed by : [address] [address] MCH 31.0 27.1 - 33.3 pg [facility] TREVINO Comment:Testing performed by : [address] [address] MCHC 33.0 32.3 - 35.7 g/dL [facility] TREVINO Comment:Testing performed by : [address] [address] RDW CV 13.0 11.1 - 14.9 % [facility] Comment:Testing performed by : [address] [address] RDW SD 43.6 35.7 - 48.1 fL [facility] TREVINO Comment:Testing performed by : [address] [address] NRBC abs 0.00 0.00 - 0.01 K/cumm [facility] TREVINO Comment:Testing performed by : [address], [address] Blood 10/17/2024 4:31 AM VIDEO GAME TESTER 10/17/2024 5:40 AM VIDEO GAME TESTER us Umair Garcia MD LAB BLOOD ORDERABLES Cris l Result [facility] [address] [facility] Department of Laboratories [place], [place] [id number] * (ABNORMAL) Comprehensive metabolic panel (10/17/2024 4:31 AM VIDEO GAME TESTER) Sodium 139 135 - 145 mmol/L Comment:Testing performed by : [address] [address] Potassium, pl 3.2(L) 3.3 - 4.9 mmol/L [facility] TREVINO Comment:Testing performed by : [address], [address] Chloride 105 97 - 110 mmol/L [facility] TREVINO Comment:Testing performed by : [address] [address] CO2 23 22 - 32 mmol/L [facility] Comment:Testing performed by : [address] [address] Anion gap 11 2 - 15 mmol/L [facility] Comment:Testing performed by : [address], [place]., [address] BUN 3(L) 6 - 25 mg/dL [facility] Comment:Testing performed by : [address], [place]., [address] Creatinine 0.80 0.60 - 1.10 mg/dL [facility] Comment:Testing performed by : [address] [address] Glucose 153 70 - 199 mg/dL [facility] [...] was last revised 2022. Testing performed by: [address] [address] Calcium 7.6(L) 8.5 - 10.3 mg/dL [facility] Comment:Testing performed by : [address] [address] Bilirubin, total <0.2 0.1 - 1.2 mg/dL [facility] Comment:Testing performed by : [address] [address] Protein, pl 5.5(L) 6.5 - 8.5 g/dL [facility] Comment:Testing performed by : [address] [address] Albumin 3.1(L) 3.5 - 5.0 g/dL [facility] Comment:Testing performed by : [address] [address] Alk phos 89 40 - 130 Units/L [facility] Comment:Testing performed by : [address] [address] ALT 10 7 - 45 Units/L [facility] Comment:Testing performed by : [address] [address] AST 15 10 - 45 Units/L [facility] Comment:Testing performed by : [address], [address] Blood 10/17/2024 4:31 AM VIDEO GAME TESTER 10/17/2024 5:39 AM VIDEO GAME TESTER us Umair Garcia MD LAB BLOOD ORDERABLES Cris matias Result [facility] [address] [facility] Department [place] [address] * eGFR (10/16/2024 4:02 AM VIDEO GAME TESTER) eGFR 72 >=60 mL/min/1. 73 m2 Comment: [...] was last reviewed 2021. Testing performed by: [address], [address] Blood 10/16/2024 4:02 AM VIDEO GAME TESTER 10/16/2024 4:17 AM VIDEO GAME TESTER us Umair Garcia MD LAB BLOOD ORDERABLES Cris matias Result [facility] [address] [facility] Department [place] [address] * (ABNORMAL) Differential, auto (10/16/2024 4:02 AM VIDEO GAME TESTER) Neutrophil abs 11.1(H) 1.5 - 6.5 K/cumm Comment:Testing performed by : [address] [address] Imm gran abs 0.4(H) 0.0 - 0.1 K/cumm [facility] Comment:Testing performed by : [address] [address] Lymphocyte abs 0.6(L) 0.8 - 3.3 K/cumm [facility] Comment:Testing performed by : [address] [address] Monocyte abs 1.4(H) 0.2 - 0.8 K/cumm [facility] Comment:Testing performed by : [address] [address] Eosinophil abs 0.0 0.0 - 0.5 K/cumm [facility] Comment:Testing performed by : [address] [address] Basophil abs 0.0 0.0 - 0.1 K/cumm [facility] Comment:Testing performed by : [address] [address] Neutrophil pct 81.9 % [facility] Comment: Interpretive Data Percent cell count reference ranges are not reported, since discordance with absolute values may lead to misinterpretation of CBC data. Current Interpretive Data was last revised on 2017. Testing performed by: [address] [address] Imm gran pct 2.8 % [facility] Comment: Interpretive Data Percent cell count reference ranges are not reported, since discordance with absolute values may lead to misinterpretation of CBC data. Current Interpretive Data was last revised on 2017. Testing performed by: [address] [address] Lymphocyte pct 4.7 % [facility] Comment: Interpretive Data Percent cell count reference ranges are not reported, since discordance with absolute values may lead to misinterpretation of CBC data. Current Interpretive Data was last revised on 2017. Testing performed by: [address] [address] Monocyte pct 10.4 % [facility] Comment: Interpretive Data Percent cell count reference ranges are not reported, since discordance with absolute values may lead to misinterpretation of CBC data. Current Interpretive Data was last revised on 2017. Testing performed by: [address] [address] Eosinophil pct 0.0 % [facility] Comment: Interpretive Data Percent cell count reference ranges are not reported, since discordance with absolute values may lead to misinterpretation of CBC data. Current Interpretive Data was last revised on 2017. Testing performed by: [address] [address] Basophil pct 0.2 % [facility] Comment: Interpretive Data Percent cell count reference ranges are not reported, since discordance with absolute values may lead to misinterpretation of CBC data. Current Interpretive Data was last revised on 2017. Testing performed by: [address] [address] Blood 10/16/2024 4:02 AM VIDEO GAME TESTER 10/16/2024 4:20 AM VIDEO GAME TESTER us Umair Garcia MD LAB BLOOD ORDERABLES Cris l Result QASIM [address] [facility] Department [place] [address] * (ABNORMAL) CBC with auto differential (10/16/2024 4:02 AM VIDEO GAME TESTER) WBC 13.5(H) 3.8 - 9.9 K/cumm Comment:Testing performed by : [address] [place] [address] Hgb 8.8(L) 11.9 - 15.5 g/dL QASIM Comment:Testing performed by : [address] [address] Hct 26.4(L) 35.6 - 45.5 % QASIM Comment:Testing performed by : [address] [address] Plt 174 150 - 400 K/cumm QASIM Comment:Testing performed by : [address] [address] MPV 9.6 9.1 - 12.3 fL QASIM Comment:Testing performed by : [address], [address] RBC 2.82(L) 3.90 - 5.20 M/cumm QASIM Comment:Testing performed by : [address], [address] MCV 93.6 81.3 - 96.4 fL QASIM Comment:Testing performed by : [address] [address] MCH 31.2 27.1 - 33.3 pg QASIM Comment:Testing performed by : [address] [address] MCHC 33.3 32.3 - 35.7 g/dL QASIM Comment:Testing performed by : [address], [address] RDW CV 12.6 11.1 - 14.9 % QASIM Comment:Testing performed by : [address], [address] RDW SD 42.8 35.7 - 48.1 fL QASIM Comment:Testing performed by : [address], [address] NRBC abs 0.00 0.00 - 0.01 K/cumm QASIM Comment:Testing performed by : [address], [address] Blood 10/16/2024 4:02 AM VIDEO GAME TESTER 10/16/2024 4:20 AM VIDEO GAME TESTER us Umair Garcia MD LAB BLOOD ORDERABLES Cris matias Result QASIM [address] [facility] Department [place] [address] * (ABNORMAL) Comprehensive metabolic panel (10/16/2024 4:02 AM VIDEO GAME TESTER) Sodium 135 135 - 145 mmol/L Comment:Testing performed by : [address] [address] Potassium, pl 4.0 3.3 - 4.9 mmol/L QASIM Comment: Delta - Results Reviewed Testing performed by: [address] [address] Chloride 103 97 - 110 mmol/L QASIM Comment:Testing performed by : [address] [address] CO2 22 22 - 32 mmol/L QASIM Comment:Testing performed by : [address] [address] Anion gap 10 2 - 15 mmol/L QASIM Comment:Testing performed by : [address] [address] BUN 5(L) 6 - 25 mg/dL QASIM Comment:Testing performed by : [address] [address] Creatinine 0.88 0.60 - 1.10 mg/dL QASIM Comment:Testing performed by : [address] [address] Glucose 156 70 - 199 mg/dL QASIM [...] classification and Diagnosis of Diabetes Diabetes Care 2022; 46: S19-S40. Current interpretive data was last revised 2022. Testing performed by: [address] [address] Calcium 8.1(L) 8.5 - 10.3 mg/dL QASIM Comment:Testing performed by : [address] [address] Bilirubin, total 0.3 0.1 - 1.2 mg/dL QASIM Comment:Testing performed by : [address] [address] Protein, pl 6.0(L) 6.5 - 8.5 g/dL QASIM Comment:Testing performed by : [address] [address] Albumin 3.3(L) 3.5 - 5.0 g/dL QASIM Comment:Testing performed by : [address] [address] Alk phos 90 40 - 130 Units/L QASIM Comment:Testing performed by : [address] [address] ALT 15 7 - 45 Units/L QASIM Comment:Testing performed by : [address] [address] AST 21 10 - 45 Units/L QASIM Comment:Testing performed by : [address] [address] Blood 10/16/2024 4:02 AM VIDEO GAME TESTER 10/16/2024 4:17 AM VIDEO GAME TESTER us Umair Garcia MD LAB BLOOD ORDERABLES Cris matias Result QASIM [address] [facility] Department [place] [address] * Stool culture Stool Rectum (10/15/2024 4:01 PM VIDEO GAME TESTER) Direct Specimen Exam Shiga Toxin Testing: Antigen detection assay for Shiga-toxin NEGATIVE for Shiga Toxin 1 and Shiga Toxin 2. Comment:Testing performed by : [facility], [address] [facility], [place]., [address] Report Final Report: No growth of enteric bacterial pathogens QASIM Comment:Testing performed by : [facility], [address] [place]., [address] Stool (Rectum) 10/15/2024 4: 01 PM VIDEO GAME TESTER 10/15/2024 7:37 PM VIDEO GAME TESTER Narrative QASIM - 10/19/2024 8:18 AM VIDEO GAME TESTER Specimen received in a sterile container. Testing performed by [facility] Microbiology Laboratory ([phone]). Routine stool cultures include procedures to detect Salmonella, Shigella, Edwardsiella, Aeromonas, Pleisiomonas, Campylobacter, Yersinia, E. coli O157, and Shiga-like toxins. Vibrio is cultured only upon special request. If Vibrio is suspected, please call the laboratory at [phone]. Interpretive data was last updated December 31, 2016. Anu Wang NP LAB MICROBIOLOGY - G ENERAL ORDERABLES Final Result Performing Organization Address [facility] Co de Phone Number [place] 188[address] [facility] [employer] [place], [place] [id number] * HIV 1/2 Antibody plus p24 Antigen Blood (10/15/2024 8:38 AM VIDEO GAME TESTER) HIV 1/2 ab + p24 ag Nonreactive Nonreactive Comment:Nonreactive for HIV- 1 antigen and HIV-1/HIV-2 antibodies. No laboratory evidence of HIV infection. If acute HIV infection is suspected, consider testing for HIV-1 RNA. Current interpretive data was last revised on 22. Blood 10/15/2024 8:38 AM VIDEO GAME TESTER 10/15/2024 12:33 PM VIDEO GAME TESTER Aristeo Damon MD LAB MICROBIOLOGY - GENERAL O RDERABLES Final Result Performing Organization Address City/[facility]/ZIP Co de Phone Number [facility] [address] [facility] [employer] [place] [address] * eGFR (10/15/2024 4:36 AM VIDEO GAME TESTER) eGFR 61 >=60 mL/min/1. 73 m2 Comment: [...] was last reviewed 2021. Testing performed by: [address] [address] Blood 10/15/2024 4:36 AM VIDEO GAME TESTER 10/15/2024 4:56 AM VIDEO GAME TESTER us Umair Garcia MD LAB BLOOD ORDERABLES Cris l Result [facility] [address] [facility] Department [place] [address] * (ABNORMAL) Differential, auto (10/15/2024 4:36 AM VIDEO GAME TESTER) Neutrophil abs 1.0(L) 1.5 - 6.5 K/cumm Comment:Testing performed by : [address] [address] Imm gran abs 0.1 0.0 - 0.1 K/cumm QASIM Comment:Testing performed by : [address] [address] Lymphocyte abs 0.9 0.8 - 3.3 K/cumm QASIM Comment:Testing performed by : [address] [address] Monocyte abs 0.8 0.2 - 0.8 K/cumm [facility] Comment:Testing performed by : [address] [address] Eosinophil abs 0.0 0.0 - 0.5 K/cumm [facility] Comment:Testing performed by : [address] [address] Basophil abs 0.0 0.0 - 0.1 K/cumm [facility] Comment:Testing performed by : [address] [address] Neutrophil pct 36.8 % [facility] Comment: Interpretive Data Percent cell count reference ranges are not reported, since discordance with absolute values may lead to misinterpretation of CBC data. Current Interpretive Data was last revised on 2017. Testing performed by: [address] [address] Imm gran pct 1.8 % [facility] Comment: Interpretive Data Percent cell count reference ranges are not reported, since discordance with absolute values may lead to misinterpretation of CBC data. Current Interpretive Data was last revised on 2017. Testing performed by: [address] [address] Lymphocyte pct 32.1 % [facility] Comment: Interpretive Data Percent cell count reference ranges are not reported, since discordance with absolute values may lead to misinterpretation of CBC data. Current Interpretive Data was last revised on 2017. Testing performed by: [address] [address] Monocyte pct 28.2 % [facility] Comment: Interpretive Data Percent cell count reference ranges are not reported, since discordance with absolute values may lead to misinterpretation of CBC data. Current Interpretive Data was last revised on 2017. Testing performed by: [address] [address] Eosinophil pct 0.7 % [facility] Comment: Interpretive Data Percent cell count reference ranges are not reported, since discordance with absolute values may lead to misinterpretation of CBC data. Current Interpretive Data was last revised on 2017. Testing performed by: [address] [address] Basophil pct 0.4 % QASIM TREVINO Comment: Interpretive Data Percent cell count reference ranges are not reported, since discordance with absolute values may lead to misinterpretation of CBC data. Current Interpretive Data was last revised on 2017. Testing performed by: [address] [address] Blood 10/15/2024 4:36 AM VIDEO GAME TESTER 10/15/2024 4:56 AM VIDEO GAME TESTER us Umair Garcia MD LAB BLOOD ORDERABLES Cris matias Result QASIM [facility]1 [facility] Department [place] [address] * (ABNORMAL) CBC with auto differential (10/15/2024 4:36 AM VIDEO GAME TESTER) WBC 2.8(L) 3.8 - 9.9 K/cumm Comment:Testing performed by : [address] [address] Hgb 8.6(L) 11.9 - 15.5 g/dL QASIM TREVINO Comment:Testing performed by : [address] [address] Hct 25.6(L) 35.6 - 45.5 % QASIM TREVINO Comment:Testing performed by : [address] [address] Plt 161 150 - 400 K/cumm QASIM Comment:Testing performed by : [address] [address] MPV 8.8(L) 9.1 - 12.3 fL QASIM TREVINO Comment:Testing performed by : [address] [address] RBC 2.76(L) 3.90 - 5.20 M/cumm QASIM TREVINO Comment:Testing performed by : [address] [address] MCV 92.8 81.3 - 96.4 fL QASIM TREVINO Comment:Testing performed by : [address] [address] MCH 31.2 27.1 - 33.3 pg QASIM TREVINO Comment:Testing performed by : [address] [address] MCHC 33.6 32.3 - 35.7 g/dL QASIM TREVINO Comment:Testing performed by : [address] [address] RDW CV 12.8 11.1 - 14.9 % QASIM TREVINO Comment:Testing performed by : [address], [address] RDW SD 41.8 35.7 - 48.1 fL QASIM TREVINO Comment:Testing performed by : [address], [address] NRBC abs 0.00 0.00 - 0.01 K/cumm QASIM TREVINO Comment:Testing performed by : [address], [address] Blood 10/15/2024 4:36 AM VIDEO GAME TESTER 10/15/2024 4:56 AM VIDEO GAME TESTER Umair Garcia MD LAB BLOOD ORDERABLES Cris l Result Performing Organization Address City/[facility] Co de Phone Number [address] [employer] [place] [address] * Magnesium (10/15/2024 4:36 AM VIDEO GAME TESTER) Magnesium 1.7 1.4 - 2.5 mg/dL Comment:Testing performed by : [address] [address] Blood 10/15/2024 4:36 AM VIDEO GAME TESTER 10/15/2024 4:56 AM VIDEO GAME TESTER Umair Garcia MD LAB BLOOD ORDERABLES Cris l Result Performing Organization Address City/[facility] Co de Phone Number [address] [employer] [address] * (ABNORMAL) Comprehensive metabolic panel (10/15/2024 4:36 AM VIDEO GAME TESTER) Sodium 134(L) 135 - 145 mmol/L Comment:Testing performed by : [address] [address] Potassium, pl 2.8(L) 3.3 - 4.9 mmol/L QASIM Comment:Testing performed by : [address] [address] Chloride 99 97 - 110 mmol/L QASIM Comment:Testing performed by : [address] [address] CO2 25 22 - 32 mmol/L QASIM Comment:Testing performed by : [address] [address] Anion gap 10 2 - 15 mmol/L QASIM Comment:Testing performed by : [address] [address] BUN 6 6 - 25 mg/dL QASIM Comment:Testing performed by : [address] [address] Creatinine 1.01 0.60 - 1.10 mg/dL QASIM Comment:Testing performed by : [address] [address] Glucose 104 70 - 199 mg/dL QASIM [...] was last revised 2022. Testing performed by: [address] [address] Calcium 8.0(L) 8.5 - 10.3 mg/dL QASIM Comment:Testing performed by : [address] [place] [address] Bilirubin, total 0.4 0.1 - 1.2 mg/dL QASIM Comment:Testing performed by : [address] [address] Protein, pl 5.6(L) 6.5 - 8.5 g/dL QASIM Comment:Testing performed by : [address], [address] Albumin 3.2(L) 3.5 - 5.0 g/dL QASIM Comment:Testing performed by : [address], [address] Alk phos 80 40 - 130 Units/L QASIM Comment:Testing performed by : [address], [address] ALT 17 7 - 45 Units/L QASIM Comment:Testing performed by : [address], [address] AST 23 10 - 45 Units/L QASIM Comment:Testing performed by : [address], [address] Blood 10/15/2024 4:36 AM VIDEO GAME TESTER 10/15/2024 4:56 AM VIDEO GAME TESTER us Umair Garcia MD LAB BLOOD ORDERABLES Cris l Result [facility] [address] [facility] Department [place] [address] * (ABNORMAL) CBC without differential (10/14/2024 9:36 AM VIDEO GAME TESTER) WBC 1.8(L) 3.8 - 9.9 K/cumm Comment:Testing performed by : [address] [address] Hgb 9.3(L) 11.9 - 15.5 g/dL QASIM TREVINO Comment:Testing performed by : [address], [address] Hct 28.4(L) 35.6 - 45.5 % QASIM Comment:Testing performed by : [address] [address] Plt 203 150 - 400 K/cumm QASIM TREVINO Comment:Testing performed by : [address] [address] MPV 8.5(L) 9.1 - 12.3 fL QASIM TREVINO Comment:Testing performed by : [address] [address] RBC 3.04(L) 3.90 - 5.20 M/cumm QASIM Comment:Testing performed by : [address] [address] MCV 93.4 81.3 - 96.4 fL QASIM Comment:Testing performed by : [address] [address] MCH 30.6 27.1 - 33.3 pg QASIM Comment:Testing performed by : [address] [address] MCHC 32.7 32.3 - 35.7 g/dL QASIM Comment:Testing performed by : [address], [address] RDW CV 13.2 11.1 - 14.9 % QASIM Comment:Testing performed by : [address] [address] RDW SD 44.0 35.7 - 48.1 fL QASIM Comment:Testing performed by : [address] [address] NRBC abs 0.00 0.00 - 0.01 K/cumm QASIM Comment:Testing performed by : [address] [address] Blood 10/14/2024 9:36 AM VIDEO GAME TESTER 10/14/2024 9:43 AM VIDEO GAME TESTER us Brain Rucker MD LAB BLOOD ORDERABLE S Final Result QASIM [address] [facility] Department [place] [address] * Microbiology Callback Stool (10/13/2024 12:31 PM VIDEO GAME TESTER) Pathologist [facility] TestName Giardia Ag QASIM TREVINO Comment:Testing performed by : [facility], [address] [facility], [address] Date Notified 20241012 QASIM TREVINO Comment:Testing performed by : [facility], [address] [facility], [address] Time Notified 843 QASIM TREVINO Comment:Testing performed by : [facility], [address] [facility], [address] Called/Read Back Bernadine TREVINO Comment:Testing performed by : [facility], [address] [facility], [address] Called By Jun TREVINO Comment:Testing performed by : [facility], [address] [place] [address], [address] Stool 10/13/2024 12:3 1 PM VIDEO GAME TESTER 10/13/2024 3:40 PM VIDEO GAME TESTER Sherie Hernandes [employer]PA[employer] LAB MICROBIOLOGY - [facility] MELODIE QUINTERO Final Result QASIM TREVINO [address] [facility] Department [place] [address] * Norovirus PCR Stool (10/13/2024 12:31 PM VIDEO GAME TESTER) Pathologist [facility] Norovirus GI RNA Not Detected Not Detected [facility] Comment:Testing performed by : [facility], [address] [place] [address], [address] Norovirus GII RNA Not Detected Not Detected QASIM TREVINO Comment: Interpretive data: Testing performed at the [facility] Laboratory using the [employer] Xpert Norovirus Assay. This assay uses nucleic [...] last revised on 2024. Testing performed by: [facility], [address] [place] [address]., [address] Stool 10/13/2024 12:3 1 PM VIDEO GAME TESTER 10/13/2024 4:19 PM VIDEO GAME TESTER Sherie Hernandes NP [facility] MICROBIOLOGY - [facility] Final Result Performing Organization Address City/[facility]/ZIP Co de Phone Number QASIM TREVINO [facility] Department [place] [address] [facility] * (ABNORMAL) Cryptosporidium and Giardia antigen assay Stool (10/13/2024 12:31 PM VIDEO GAME TESTER) Giardia Ag Positive(A) Negative Comment:Testing performed by : [facility], [address] [place] [address]., [address] Cryptosporidium Ag Negative Negative QASIM TREVINO Comment: Interpretive data: Testing performed by the [facility] using an immunoassay that detects Cryptosporidium and Giardia antigens in stool specimens. If comprehensive examination for ova and parasites is required, please request Ova and Parasite Examination . Testing performed by: [facility], [address] [place] [address], [place]., [address] Stool 10/13/2024 12:3 1 PM VIDEO GAME TESTER 10/13/2024 3:40 PM VIDEO GAME TESTER Narrative QASIM - 10/14/2024 8:39 AM VIDEO GAME TESTER Received in [place] Sherie Hernandes NP LAB MICROBIOLOGY - GENERAL [employer] LEON Final Result QASIM [address] [facility] of [place] [address] * Stool culture Stool (10/13/2024 12:31 PM VIDEO GAME TESTER) Direct Specimen Exam Shiga Toxin Testing: Antigen detection assay for Shiga-toxin NEGATIVE for Shiga Toxin 1 and Shiga Toxin 2. Comment:Testing performed by : [facility], [address] [place]., [address] Report Final Report: No growth of enteric bacterial pathogens MORALESJOVAN Comment:Testing performed by : [facility], [address] [place] [address]., [address] Stool 10/13/2024 12:3 1 PM VIDEO GAME TESTER 10/13/2024 3:38 PM VIDEO GAME TESTER Narrative QASIM - 10/17/2024 9:12 AM VIDEO GAME TESTER Specimen was received in [facility]. Testing performed by [facility] Microbiology Laboratory ([phone]). Routine stool cultures include procedures to detect Salmonella, Shigella, Edwardsiella, Aeromonas, Pleisiomonas, Campylobacter, Yersinia, E. coli O157, and Shiga-like toxins. Vibrio is cultured only upon special request. If Vibrio is suspected, please call the laboratory at [phone]. Interpretive data was last updated December 31, 2016. us Sherie Hernandes NP LAB MICROBIOLOGY - [facility]AL [facility] Final Result Performing Organization Address [facility] Co de Phone Number QASIM [address] [facility] Department [place] [address] * (ABNORMAL) Erythrocyte sedimentation rate (10/13/2024 10:16 AM VIDEO GAME TESTER) Erythrocyte sedimentation rate 34(H) 1 - 30 mm/hr Comment:Testing performed by : [facility], [address] [place] [address]., [address] Blood 10/13/2024 10:1 6 AM VIDEO GAME TESTER 10/13/2024 10:21 AM VIDEO GAME TESTER us Sherie Hernandes NP LAB BLOOD ORDERABLES Final Resu lt Performing Organization Address City/[facility] Co de Phone Number QASIM [facility]0 [facility] [employer] [place] [address] * (ABNORMAL) CRP (acute phase) (10/13/2024 10:16 AM VIDEO GAME TESTER) CRP 35.6(H) <=10.0 mg/L Comment:Testing performed by : [address] [address] Blood 10/13/2024 10:1 6 AM VIDEO GAME TESTER 10/13/2024 10:21 AM VIDEO GAME TESTER Sherie Hernandes LAB BLOOD ORDERABLES Final Resu lt Performing Organization Address [facility] Co de Phone Number QASIM [facility] [employer] [place] [place] [address] * eGFR (10/13/2024 4:49 AM VIDEO GAME TESTER) eGFR 71 >=60 mL/min/1. 73 m2 Comment: [...] was last reviewed 2021. Testing performed by: [address] [address] Blood 10/13/2024 4:49 AM VIDEO GAME TESTER 10/13/2024 5:40 AM VIDEO GAME TESTER us Jaime Limon MD LAB BLOOD ORDERABLES Final Re sult [facility] [address] [facility] Department [place] [address] * Differential, auto (10/13/2024 4:49 AM VIDEO GAME TESTER) Neutrophil abs 3.4 1.5 - 6.5 K/cumm Comment:Testing performed by : [address] [address] Imm gran abs 0.0 0.0 - 0.1 K/cumm QASIM Comment:Testing performed by : [address] [address] Lymphocyte abs 1.2 0.8 - 3.3 K/cumm QASIM Comment:Testing performed by : [address] [address] Monocyte abs 0.2 0.2 - 0.8 K/cumm QASIM Comment:Testing performed by : [address] [address] Eosinophil abs 0.0 0.0 - 0.5 K/cumm QASIM Comment:Testing performed by : [address] [address] Basophil abs 0.0 0.0 - 0.1 K/cumm QASIM Comment:Testing performed by : [address] [address] Neutrophil pct 70.7 % QASIM Comment: Interpretive Data Percent cell count reference ranges are not reported, since discordance with absolute values may lead to misinterpretation of CBC data. Current Interpretive Data was last revised on 2017. Testing performed by: [address] [address] Imm gran pct 0.6 % QASIM Comment: Interpretive Data Percent cell count reference ranges are not reported, since discordance with absolute values may lead to misinterpretation of CBC data. Current Interpretive Data was last revised on 2017. Testing performed by: [address] [address] Lymphocyte pct 24.1 % [facility] Comment: Interpretive Data Percent cell count reference ranges are not reported, since discordance with absolute values may lead to misinterpretation of CBC data. Current Interpretive Data was last revised on 2017. Testing performed by: [address] [address] Monocyte pct 4.0 % [facility] Comment: Interpretive Data Percent cell count reference ranges are not reported, since discordance with absolute values may lead to misinterpretation of CBC data. Current Interpretive Data was last revised on 2017. Testing performed by: [address] [address] Eosinophil pct 0.2 % [facility] Comment: Interpretive Data Percent cell count reference ranges are not reported, since discordance with absolute values may lead to misinterpretation of CBC data. Current Interpretive Data was last revised on 2017. Testing performed by: [address] [address] Basophil pct 0.4 % [facility] Comment: Interpretive Data Percent cell count reference ranges are not reported, since discordance with absolute values may lead to misinterpretation of CBC data. Current Interpretive Data was last revised on 2017. Testing performed by: [address] [address] Blood 10/13/2024 4:49 AM VIDEO GAME TESTER 10/13/2024 5:46 AM VIDEO GAME TESTER us Jaime Limon MD LAB BLOOD ORDERABLES Final Re sult [facility] [address] [facility] Department [place] [address] * (ABNORMAL) Iron profile w/ IBC (10/13/2024 4:49 AM VIDEO GAME TESTER) Iron 144 35 - 145 mcg/dL Comment:Testing performed by : [address] [address] TIBC 251 250 - 400 mcg/dL QASIM Comment:Testing performed by : [address] [address] Transferrin saturation 57(H) 20 - 50 % QASIM Comment:Testing performed by : [address] [address] Blood 10/13/2024 4:49 AM VIDEO GAME TESTER 10/13/2024 5:40 AM VIDEO GAME TESTER us Jaime Limon MD LAB BLOOD ORDERABLES Final Re sult QASIM [address] [facility] Department [place] [address] * (ABNORMAL) CBC with auto differential (10/13/2024 4:49 AM VIDEO GAME TESTER) WBC 4.8 3.8 - 9.9 K/cumm Comment:Testing performed by : [address] [address] Hgb 9.9(L) 11.9 - 15.5 g/dL QASIM Comment:Testing performed by : [address] [address] Hct 29.9(L) 35.6 - 45.5 % QASIM Comment:Testing performed by : [address] [address] Plt 269 150 - 400 K/cumm QASIM Comment:Testing performed by : [address] [address] MPV 8.8(L) 9.1 - 12.3 fL QASIM Comment:Testing performed by : [address] [address] RBC 3.16(L) 3.90 - 5.20 M/cumm QASIM TREVINO Comment:Testing performed by : [address] [address] MCV 94.6 81.3 - 96.4 fL QASIM TREVINO Comment:Testing performed by : [address] [address] MCH 31.3 27.1 - 33.3 pg QASIM TREVINO Comment:Testing performed by : [address] [address] MCHC 33.1 32.3 - 35.7 g/dL QASIM TREVINO Comment:Testing performed by : [address] [address] RDW CV 13.3 11.1 - 14.9 % QASIM TREVINO Comment:Testing performed by : [address], [address] RDW SD 45.5 35.7 - 48.1 fL QASIM Comment:Testing performed by : [address] [address] NRBC abs 0.00 0.00 - 0.01 K/cumm QASIM Comment:Testing performed by : [address], [address] Blood 10/13/2024 4:49 AM VIDEO GAME TESTER 10/13/2024 5:46 AM VIDEO GAME TESTER Jaime Limon MD LAB BLOOD ORDERABLES Final Re sult Performing Organization Address City/[facility] Co de Phone Number [address] [employer] [address] * (ABNORMAL) Ferritin (10/13/2024 4:49 AM VIDEO GAME TESTER) Ferritin 587(H) 15 - 150 ng/mL Comment:Testing performed by : [address], [address] Blood 10/13/2024 4:49 AM VIDEO GAME TESTER 10/13/2024 5:40 AM VIDEO GAME TESTER Jaime Limon MD LAB BLOOD ORDERABLES Final Re sult Performing Organization Address City/[facility] Co de Phone Number [address] [address] * Basic metabolic panel (10/13/2024 4:49 AM VIDEO GAME TESTER) Sodium 137 135 - 145 mmol/L Comment:Testing performed by : [address] [address] Potassium, pl 3.5 3.3 - 4.9 mmol/L QASIM Comment:Testing performed by : [address] [address] Chloride 103 97 - 110 mmol/L QASIM Comment:Testing performed by : [address], [place]., [address] CO2 22 22 - 32 mmol/L QASIM Comment:Testing performed by : [address], [place]., [address] Anion gap 12 2 - 15 mmol/L [facility] Comment:Testing performed by : [address], [place]., [address] BUN 8 6 - 25 mg/dL QASIM Comment:Testing performed by : [address], [place]., [address] Creatinine 0.90 0.60 - 1.10 mg/dL QASIM Comment:Testing performed by : [address] [address] Glucose 96 70 - 199 mg/dL [facility] Comment: Interpretive Data Fasting glucose >/= [...] was last revised 2022. Testing performed by: [address] [address] Calcium 8.9 8.5 - 10.3 mg/dL QASIM Comment:Testing performed by : [address], [place]., [address] Blood 10/13/2024 4:49 AM VIDEO GAME TESTER 10/13/2024 5:40 AM VIDEO GAME TESTER Jaime Limon MD LAB BLOOD ORDERABLES Final Re sult Performing Organization Address [facility] Co de Phone Number [address] [address] * Protime-INR (10/12/2024 6:25 PM VIDEO GAME TESTER) Pathologist [facility] PT 12.9 12.0 - 14.6 sec Comment:Testing performed by : [address] [address] INR 1.0 0.9 - 1.2 [facility] Comment: Ref Range High Interpretive data Oral anticoagulant therapeutic ranges: Venous thromboembolism prophylaxis or treatment: 2.0-3.0 CARDIOLOGY Standard range: 2.0-3.0 High-intensity range: 2.5-3.5 Refer to indication-specific guidelines for appropriate target ranges for prosthetic heart valve replacement. Current interpretive data was last revised on 2019. Testing performed by: [address] [address] Blood 10/12/2024 6:25 PM VIDEO GAME TESTER 10/12/2024 6:39 PM VIDEO GAME TESTER Anthony Otero MD LAB BLOOD ORDERABLE S Final Result Performing Organization Address [facility] Co de Phone Number [address] [address] * ABO / Rh Confirmation Testing (10/12/2024 5:42 PM VIDEO GAME TESTER) [facility] ABO/Rh Confirmation B Positive [facility] Comment:Testing performed by : [address] [address] Blood 10/12/2024 5:42 PM VIDEO GAME TESTER 10/12/2024 5:47 PM VIDEO GAME TESTER Alecia ENCISO LAB BLOOD ORDERABLES Final Resu lt Performing Organization Address City/[facility] Co de Phone Number [address] [address] [facility] * (ABNORMAL) Hemoglobin and hematocrit (10/12/2024 5:42 PM VIDEO GAME TESTER) Hgb 10.6(L) 11.9 - 15.5 g/dL Comment:Testing performed by : [facility], [address] [place] [address]., [address] Hct 32.1(L) 35.6 - 45.5 % QASIM TREVINO Comment:Testing performed by : [facility], [address] [place] [address]., [address] Blood 10/12/2024 5:42 PM VIDEO GAME TESTER 10/12/2024 5:47 PM VIDEO GAME TESTER us Anthony Otero MD LAB BLOOD ORDERABLE S Final Result QASIM TREVINO [address] [facility] Department [place] [address] * CT Chest PE (CTA) Abdomen Pelvis W Contrast (10/12/2024 3:27 PM VIDEO GAME TESTER) Anatomical Region Laterality Modality Body N/A Computed Tomogra phy 10/12/2024 3:57 PM VIDEO GAME TESTER Narrative 10/12/2024 4:36 PM VIDEO GAME TESTER EXAM DESCRIPTION: CT CHEST PE (CTA) ABDOMEN [...] Nelson Dangelo M.D. JA: SAMIA Report ID: [id number] Reading Location: [id number] Procedure Note Nelson Dangelo MD - 10/12/2024 [...] Nelson Dangelo M.D. JA: SAMIA Report ID: [id number] Reading Location: [place] [address] Wilmar Swann MD IMG CT PROCEDURES Final Result * Urinalysis reflex to microscopic and culture Urine (10/12/2024 3:01 PM VIDEO GAME TESTER) Color, ur Straw Yellow Comment:Testing performed by : [address] [address] Clarity, ur Clear Clear QASIM Comment:Testing performed by : [address] [address] Specific gravity, ur 1.004 1.003 - 1.030 QASIM Comment:Testing performed by : [address] [address] pH, urine 5.5 QASIM Comment: Interpretive Data U rine pH is affected by diet, medications, systemic acid-base disturbances, and renal tubular function. pH may affect urinary stone formation. For example, urine pH below 6.0 may help reduce the tendency for calcium phosphate stones and pH greater than 6.0 may reduce the tendency for uric acid stone formation. Source: [employer] Current Interpretive Data was last revised on 2017 Testing performed by: [address] [place] [address] Protein, ur ql Negative Negative QASIM Comment:Testing performed by : [facility], [address] [place] [address], [place]., [address] Glucose, ur ql Negative Negative QASIM Comment:Testing performed by : [facility], [address] [place] [address], [place]., [address] Ketones, ur Negative Negative Q[facility]IM Comment:Testing performed by : [address], [place]., [address] Bilirubin, ur Negative Negative Q[facility]IM Comment:Testing performed by : [address], [place]., [address] Blood, ur Negative Negative QASIM Comment:Testing performed by : [address], [place]., [address] Urobilinogen, ur <2.0 <2.0 mg/dL Q[facility]IM Comment:Testing performed by : [address], [place]., [address] Nitrite, ur Negative Negative QASIM Comment:Testing performed by : [address], [place]., [address] Leukocyte esterase, ur Negative Negative QASIM Comment:Testing performed by : [address], [place]., [address] UA reflex comment Reflex conditions for microscopic UA and culture not met. QASIM Comment:Testing performed by : [facility], [address] [place] [address], [place]., [address] Urine 10/12/2024 3:01 PM VIDEO GAME TESTER 10/12/2024 3:08 PM VIDEO GAME TESTER us Alecia ENCISO LAB MICROBIOLOGY - GENERAL MELODIE QUINTERO Final Result QASIM TREVINO [address] [facility] Department [place] [address] * eGFR (10/12/2024 10:11 AM VIDEO GAME TESTER) eGFR 71 >=60 mL/min/1. 73 m2 Comment: [...] was last reviewed 2021. Testing performed by: [address] [address] Blood 10/12/2024 10:1 1 AM VIDEO GAME TESTER 10/12/2024 10:23 AM VIDEO GAME TESTER Alecia ENCISO LAB BLOOD ORDERABLES Final Resu lt [place] [address] [facility] Department [place] [address] * (ABNORMAL) Differential, auto (10/12/2024 10:11 AM VIDEO GAME TESTER) Neutrophil abs 6.4 1.5 - 6.5 K/cumm Comment:Testing performed by : [address] [address] Imm gran abs 0.0 0.0 - 0.1 K/cumm QASIM Comment:Testing performed by : [address] [address] Lymphocyte abs 1.1 0.8 - 3.3 K/cumm QASIM Comment:Testing performed by : [address] [address] Monocyte abs 0.1(L) 0.2 - 0.8 K/cumm QASIM Comment:Testing performed by : [address] [address] Eosinophil abs 0.0 0.0 - 0.5 K/cumm [facility] Comment:Testing performed by : [address] [address] Basophil abs 0.0 0.0 - 0.1 K/cumm [facility] Comment:Testing performed by : [address] [address] Neutrophil pct 83.1 % [facility] Comment: Interpretive Data Percent cell count reference ranges are not reported, since discordance with absolute values may lead to misinterpretation of CBC data. Current Interpretive Data was last revised on 2017. Testing performed by: [address] [address] Imm gran pct 0.5 % [facility] Comment: Interpretive Data Percent cell count reference ranges are not reported, since discordance with absolute values may lead to misinterpretation of CBC data. Current Interpretive Data was last revised on 2017. Testing performed by: [address] [address] Lymphocyte pct 14.2 % [facility] Comment: Interpretive Data Percent cell count reference ranges are not reported, since discordance with absolute values may lead to misinterpretation of CBC data. Current Interpretive Data was last revised on 2017. Testing performed by: [address] [address] Monocyte pct 1.6 % [facility] Comment: Interpretive Data Percent cell count reference ranges are not reported, since discordance with absolute values may lead to misinterpretation of CBC data. Current Interpretive Data was last revised on 2017. Testing performed by: [address] [address] Eosinophil pct 0.3 % [facility] Comment: Interpretive Data Percent cell count reference ranges are not reported, since discordance with absolute values may lead to misinterpretation of CBC data. Current Interpretive Data was last revised on 2017. Testing performed by: [address] [address] Basophil pct 0.3 % [facility] Comment: Interpretive Data Percent cell count reference ranges are not reported, since discordance with absolute values may lead to misinterpretation of CBC data. Current Interpretive Data was last revised on 2017. Testing performed by: [address] [address] Blood 10/12/2024 10:1 1 AM VIDEO GAME TESTER 10/12/2024 10:23 AM VIDEO GAME TESTER Alecia ENCISO LAB BLOOD ORDERABLES Final Resu lt QASIM [facility] Department [place] [address] * (ABNORMAL) CBC with auto differential (10/12/2024 10:11 AM VIDEO GAME TESTER) WBC 7.7 3.8 - 9.9 K/cumm Comment:Testing performed by : [address] [address] Hgb 10.9(L) 11.9 - 15.5 g/dL QASIM Comment:Testing performed by : [address] [address] Hct 32.6(L) 35.6 - 45.5 % QASIM Comment:Testing performed by : [address] [address] Plt 333 150 - 400 K/cumm QASIM Comment:Testing performed by : [address] [address] MPV 8.8(L) 9.1 - 12.3 fL QASIM Comment:Testing performed by : [address] [address] RBC 3.45(L) 3.90 - 5.20 M/cumm QASIM Comment:Testing performed by : [address] [address] MCV 94.5 81.3 - 96.4 fL QASIM Comment:Testing performed by : [address] [address] MCH 31.6 27.1 - 33.3 pg QASIM TREVINO Comment:Testing performed by : [address] [address] MCHC 33.4 32.3 - 35.7 g/dL QASIM Comment:Testing performed by : [address], [address] RDW CV 13.4 11.1 - 14.9 % QASIM TREVINO Comment:Testing performed by : [address], [address] RDW SD 45.5 35.7 - 48.1 fL QASIM Comment:Testing performed by : [address], [address] NRBC abs 0.00 0.00 - 0.01 K/cumm QASIM Comment:Testing performed by : [address], [address] Blood 10/12/2024 10:1 1 AM VIDEO GAME TESTER 10/12/2024 10:23 AM VIDEO GAME TESTER Alecia ENCISO LAB BLOOD ORDERABLES Final Resu lt Performing Organization Address City/[facility] de Phone Number [address] [employer] [place] [address] * ABO/Rh (10/12/2024 10:11 AM VIDEO GAME TESTER) [facility] ABO/Rh B Positive Comment:Testing performed by : [address], [address] Blood 10/12/2024 10:1 1 AM VIDEO GAME TESTER 10/12/2024 10:23 AM VIDEO GAME TESTER Narrative QASIM - 10/12/2024 11:14 AM VIDEO GAME TESTER Has the patient had Daratumumab or Isatuximab in the past 6 months?->Unknown Alecia ENCISO LAB BLOOD BANK TEST ORDERABLES Final Result Performing Organization Address City/[facility] Co de Phone Number [address] [address] * Manual Differential (10/12/2024 10:11 AM VIDEO GAME TESTER) Differential Auto Comment:Testing performed by : [address] [address] RBC morphology Consistent with RBC Indicies QASIM TREVINO Comment:Testing performed by : [address] [address] Platelet estimate Automated Count Confirmed QASIM TREVINO Comment:Testing performed by : [address] [address] Blood 10/12/2024 10:1 1 AM VIDEO GAME TESTER 10/12/2024 10:23 AM VIDEO GAME TESTER Alecia ENCISO LAB BLOOD ORDERABLES Final Resu lt Performing Organization Address [facility] de Phone Number QASIM [address] [employer] [place] [address] * Antibody screen (10/12/2024 10:11 AM VIDEO GAME TESTER) [facility] Sunitha, indirect, Gel Interpretation Negative ABSC Comment:Testing performed by : [address] [address] Blood 10/12/2024 10:1 1 AM VIDEO GAME TESTER 10/12/2024 10:23 AM VIDEO GAME TESTER Narrative QASIM TREVINO - 10/12/2024 11:14 AM VIDEO GAME TESTER Has the patient had Daratumumab or Isatuximab in the past 6 months?->Unknown Alecia ENCISO LAB BLOOD BANK TEST ORDERABLES Final Result Performing Organization Address [facility] de Phone Number QASIM [address] [employer] [place] [address] * (ABNORMAL) Comprehensive metabolic panel (10/12/2024 10:11 AM VIDEO GAME TESTER) [facility] Sodium 131(L) 135 - 145 mmol/L Comment:Testing performed by : [address] [address] Potassium, pl 3.6 3.3 - 4.9 mmol/L QASIM TREVINO Comment:Testing performed by : [address] [address] Chloride 96(L) 97 - 110 mmol/L [facility] Comment:Testing performed by : [address] [address] CO2 19(L) 22 - 32 mmol/L [facility] Comment:Testing performed by : [address], [place]., [address] Anion gap 16(H) 2 - 15 mmol/L [facility] Comment:Testing performed by : [address] [address] BUN 9 6 - 25 mg/dL [facility] Comment:Testing performed by : [address], [place]., [address] Creatinine 0.90 0.60 - 1.10 mg/dL [facility] Comment:Testing performed by : [address] [address] Glucose 153 70 - 199 mg/dL [facility] Comment: Interpretive Data Fasting glucose >/= [...] was last revised 2022. Testing performed by: [address] [address] Calcium 9.0 8.5 - 10.3 mg/dL [facility] Comment:Testing performed by : [address] [address] Bilirubin, total 0.3 0.1 - 1.2 mg/dL [facility] Comment:Testing performed by : [address] [address] Protein, pl 6.3(L) 6.5 - 8.5 g/dL [facility] Comment:Testing performed by : [address] [address] Albumin 3.8 3.5 - 5.0 g/dL QASIM TREVINO Comment:Testing performed by : [facility], [address] [place] [address]., [address] Alk phos 97 40 - 130 Units/L QASIM TREVINO Comment:Testing performed by : [facility], [address] [place] [address]., [address] ALT 21 7 - 45 Units/L QASIM TREVINO Comment:Testing performed by : [address] [address] AST 25 10 - 45 Units/L QASIM TREVINO Comment:Testing performed by : [facility], [address] [place] [address]., [address] Blood 10/12/2024 10:1 1 AM VIDEO GAME TESTER 10/12/2024 10:23 AM VIDEO GAME TESTER us Alecia ENCISO LAB BLOOD ORDERABLES Final Resu lt Performing Organization Address City/State/[facility] Co de Phone Number QASIM [address] [facility] Department [place] [address] from Last 3 Months Insurance [employer] Advance Directives For more information, please contact: [phone] Documents on File Type Date Recorded Patient Ladies' Locker Room Attendant Expl anation ADVANCE DIRECTIVE 10/19/2024 2:15 PM Power of Hatchery Laborer-Medical * Full Code (Latest Code Status on [...] specifically selected below: No intubation Care Teams Armament Repairer Relationship Specialty Start Date End Date No, Physician PCP - General 10/12/24
--- OUTSIDE RECORDS SUMMARY | 2024-11-09 14:37 | XMS_ITS | Clinical Summary ---
Author Organization [facility] Address [address] [place] [address] [place] [address] Care Team Providers Care Manager Of Maintenance Name Role Phone Iraj Spencer MD Primary Care Provider [phone] Allergies No known active allergies Medications losartan [...] food. 60 Tablet 2 01/03/20 24 Active Additional Information Patient taking differently: 6 mgOral TWO TIMES DAILY, Take with food., Reported on 10/20/2024 lidocaine-prilo carole (EMLA) 2.5-2.5 % CreamIndication s:Malignant [...] vomiting 30 Tablet 1 04/03/20 24 Active Additional Information Patient taking differently: 4 mg Oral EVERY 6 HOURS PRN, Nausea, Dissolve 1 tablet on top of tongue then swallow with saliva every 8 hours as needed for nausea or vomiting, Reported on 10/20/2024 methylPREDNISol one (MEDROL DOSPACK) 4 mg Tablets, Dose Pack Use as directed 21 Tablet 05/06/20 24 Active lansoprazole (Prevacid) 30 mg Capsule, [...] daily. 60 Tablet 1 10/01/19 25 Active acetaminophen (TYLENOL) 325 mg tablet Take 650 mg by mouth every 4 hours as needed for Pain. 10/18/19 25 Active polyethylene glycol (MIRALAX) 17 gram Powder in Packet Take 17 Grams by mouth 1 time daily as needed for Constipation. 10/18/19 25 Active pantoprazole (PROTONIX) 40 mg Tablet, Delayed Release (E.C.) Take 40 mg by mouth 2 times daily. 10/18/19 25 025 Active dexAMETHasone (DECADRON) 4 mg tabletIndicatio ns:Malignant neoplasm of lung, unspecified laterality, unspecified part of lung (CMS/HCC) Take 1 Tablet (4 mg) by mouth 2 times daily, day before treatment, day of treatment, and day after treatment. 6 Tablet 3 07/21/20 24 025 Discontinu ed(Duplica te Therapy) loperamide (IMODIUM) 2 mg capsule Take 2 mg by mouth 4 times daily as needed for Diarrhea/Loose Stools. 10/18/19 25 025 metroNIDAZOLE (FLAGYL) 500 mg tablet Take 500 mg by mouth 3 times daily. 10/18/19 25 Active Problems No known active problems Encounters Date Type Department Care Team Description 11/04/2024 Orders Only [facility] [place] [address] [place] [address] Abdirashid Acosta MD 11/02/2024 Orders Only [facility] [place] [address] [place] [phone] Abdirashid Acosta MD Malignant neoplasm of lung, unspecified laterality, unspecified part of lung (CMS/HCC) 10/31/2024 External Device Data STL ABSTRACTION Provider, Abstract 10/30/2024 External Device Data STL ABSTRACTION Provider, Abstract 10/28/2024 Telephone [facility] [place] [address] [place] [address] Abdirashid Acosta MD Lab Results 10/28/2024 Orders Only [facility] [place] [address] [place] [address] Abdirashid Acosta MD 10/27/2024 External Device Data STL ABSTRACTION Provider, Abstract 10/27/2024 Orders Only [facility] [place] [address] [place] [address] Abdirashid Acosta MD 10/27/2024 Telephone [facility] [address] [place] [address] Abdirashid Acosta MD Iron Studies 10/20/2024 1:15 PM ACOUSTICAL ENGINEER Office Visit [facility] [place] [address] [place] [address] Abdirashid Acosta MD Malignant neoplasm of lung, unspecified laterality, unspecified part of lung (CMS/HCC) (Primary Dx); Anemia due to chemotherapy 10/19/2024 Orders Only [facility] [place] [address] Abdirashid Acosta MD Malignant neoplasm of lung, unspecified laterality, unspecified part of lung (CMS/HCC) 10/16/2024 Telephone [facility] [place] [address] Abdirashid Acosta MD Patient Update 10/14/2024 External Device Data STL ABSTRACTION Provider, Abstract 10/13/2024 External Device Data STL ABSTRACTION Provider, Abstract 10/12/2024 Telephone [facility] [place] [address] [place] [phone] Abdirashid Acosta MD Diarrhea 10/05/2024 Orders Only [facility] [place] [address] Abdirashid Acosta MD Malignant neoplasm of lung, unspecified laterality, unspecified part of lung (CMS/HCC) 10/01/2024 Orders Only [facility] [place] [address] Abdirashid Acosta MD 10/01/2024 Telephone [facility] [place] [address] Abdirashid Acosta MD Lab results 10/01/2024 Telephone [facility] [place] [address] Abdirashid Acotsa MD Diarrhea 09/22/2024 Orders Only [facility] [place] [address] [place] [address] Abdirashid Acosta MD 09/21/2024 9:15 AM ACOUSTICAL ENGINEER Office Visit [facility] [place] [address] [place] [address] Abdirashid Acosta MD Malignant neoplasm of lung, unspecified laterality, unspecified part of lung (CMS/HCC) 09/16/2024 External Device Data STL ABSTRACTION Provider, Abstract 09/15/2024 External Device Data STL ABSTRACTION Provider, Abstract 09/14/2024 Orders Only [facility] [place] [address] Abdirashid Acosta MD 09/09/2024 External Device Data STL ABSTRACTION Provider, Abstract 09/07/2024 Orders Only [facility] [place] [address] [place] [phone] Abdirashid Acosta MD Malignant neoplasm of lung, unspecified laterality, unspecified part of lung (CMS/HCC) 08/24/2024 Orders Only [facility] [place] [address] Abdirashid Acosta MD Malignant neoplasm of lung, unspecified laterality, unspecified part of lung (CMS/HCC) 08/17/2024 Orders Only [facility] [place] [address] [place] [phone] Abdirashid Acosta MD 08/16/2024 Refill [facility] [place] [address] [place] [phone] Abdirashid Acosta MD Malignant neoplasm of lung, [...] Sign Reading Time Taken Comments Blood Pressure 135/69 10/20/2024 1:45 PM ACOUSTICAL ENGINEER Pulse 58 10/20/2024 1:45 PM ACOUSTICAL ENGINEER Temperature 35.8 C (96.5 F) 10/20/2024 1:45 PM ACOUSTICAL ENGINEER Respiratory Rate 15 10/20/2024 1:45 PM ACOUSTICAL ENGINEER Oxygen Saturation 97% 10/20/2024 1:45 PM ACOUSTICAL ENGINEER Inhaled Oxygen Concentration - - Weight 66.2 kg (146 lb) 10/20/2024 1:45 PM ACOUSTICAL ENGINEER Height 154.9 cm (5' 1 ) 01/09/2024 11:30 AM CDT Body Mass Index 27.59 01/09/2024 11:30 AM CDT Plan of Treatment Upcoming Encounters Date Type Department Care Team (Late st Contact Info) Description 12/08/2024 8:30 AM CDT Office Visit [facility] [place] [address] [facility] [address] [place] [address] Abdirashid Acosta MD [address] [facility] [address] [place] [address] Health Maintenance Due Date Last Done Comments Pre-Diabetes and Diabetes Screening 1960 DTAP/TDAP/TD VACCINES (1 - Tdap) 1977 PNEUMOCOCCAL VACCINE 50+ YEARS (1 of 2 - PCV) 04/13/19 77 ZOSTER VACCINE (1 of 2) 1977 BREAST CANCER SCREENING 1998 COLORECTAL SCREENING 2003 Colorectal Cancer Screening 2003 FIT-DNA Q 3 years 2003 FIT/FOBT Q 1 year 2003 Flex Sig/CT Colonography Q 5 years 2003 RSV VACCINE (60+ or ) (1 - Risk 60-74 years 1-dose series) 2018 OSTEOPOROSIS SCREENING 2023 INFLUENZA VACCINE (#1) 2024 Procedures Procedure Name Priority Date/Time Associated Diagnosis Comments COMPREHENSIVE METABOLIC PANEL Routine 11/03/2024 9:38 AM CDT CBC WITH AUTODIFFERENTIAL Routine 2024 4:16 PM ACOUSTICAL ENGINEER BASIC METABOLIC PANEL Routine 10/27/2024 9:30 AM ACOUSTICAL ENGINEER CBC WITH DIFFERENTIAL Routine 10/20/2024 4:29 PM ACOUSTICAL ENGINEER BASIC METABOLIC PANEL Routine 10/01/2024 10:18 AM ACOUSTICAL ENGINEER COMPREHENSIVE METABOLIC PANEL Routine 09/21/2024 11:58 AM ACOUSTICAL ENGINEER BASIC METABOLIC PANEL Routine 09/21/2024 10:11 AM ACOUSTICAL ENGINEER CBC WITH DIFFERENTIAL Routine 09/21/2024 10:06 AM ACOUSTICAL ENGINEER CBC WITH DIFFERENTIAL Routine 09/21/2024 10:[address] CHEST ABDOMEN PELVIS W CONT Routine 09/14/2024 11:04 AM ACOUSTICAL ENGINEER COMPREHENSIVE METABOLIC PANEL Routine 08/14/2024 11:17 AM ACOUSTICAL ENGINEER from Last 3 Months Results * COMPREHENSIVE METABOLIC PANEL (11/03/2024 9:38 AM CDT) Only the most recent of3 resultswithin the time period is included. Blood us Abdirashid Acosta MD CHEMISTRY ORDERABLES Final Resu lt * CBC WITH AUTODIFFERENTIAL (10/27/2024 4:16 PM ACOUSTICAL ENGINEER) Blood us Abdirashid Acosta MD HEMATOLOGY ORDERABLES Final Res ult * BASIC METABOLIC PANEL (10/27/2024 9:30 AM ACOUSTICAL ENGINEER) Only the most recent of3 resultswithin the time period is included. Blood Result Dusty Acosta MD CHEMISTRY ORDERABLES Final Resu lt * CBC WITH DIFFERENTIAL (10/20/2024 4:29 PM ACOUSTICAL ENGINEER) Only the most recent of3 resultswithin the time period is included. Blood us Abdirashid Acosta MD HEMATOLOGY ORDERABLES Final Res ult * CT CHEST ABDOMEN PELVIS W CONT (09/14/2024 11:04 AM ACOUSTICAL ENGINEER) Anatomical Region Laterality Modality Chest Other us Abdirashid Acosta MD CT ORDERABLES Final Result from Last 3 Months Insurance Advance Directives For more information, please contact: [phone] Documents on File Type Date Recorded Patient Alterations Workroom Clerk Expl anation Advance Directive Living Will 01/09/2024 12:02 PM Advance Directive POA 01/09/2024 12:02 PM Care Teams Manager Of Maintenance Relationship Specialty Start Date End Date Iraj Spencer MD [address] [place] [id number] PCP - General Family Practice 12/12/23
== END 2024-11-09 12:16 | disposition home or self-care (01) ==
PROVIDERS: PCP Family Medicine; Visit Provider Radiology Radiation Oncology
DX: C79.31 Secondary malignant neoplasm of brain (principal)
CPT/HCPCS: 70553; A9579

== ENCOUNTER 2024-12-22 11:09 | Outpatient (CLI) | payer MEDICARE, SELFPAY ==
--- NOTE | ~2024-12-22 | CT_ITS ---
Clinical Indication: Lung cancer CT Scan of the Chest, Abdomen, and Pelvis with Contrast: Technique: Contiguous sections were acquired throughout the chest, abdomen, and pelvis after intraven ous administration of 100 cc of Omnipaque 350. Dose reduction technique was used on this scan by uti janineing automated exposure control and iterative reconstruction technique. The dose-length product (DL P) was 437.32 mGy-cm. Comparison: 09/14/2024 Findings: There is no evidence of any significant mediastinal, hilar or axillary lymphadenopathy. The mediastin al soft tissues and vascular structures appear normal. There is minimal pericardial fluid. No pleural effusions. Stable focal irregular nodular density in the posterior left upper lobe. Mild to moderate emphysema p resent. Stable linear scarring right middle lobe. Hypodense mass in the anterior left hepatic lobe is decreased in size, with increased peripheral calc ification, suggestive of response to interval therapy. Questionable tiny residual splenic lesion pres ent. Gallbladder absent. The pancreas, adrenals and kidneys are within normal limits. There are ather osclerotic calcifications of the aorta. No lymphadenopathy. Suspected mild diffuse large bowel wall thickening versus underdistention. No bowel obstruction. Urinary bladder is unremarkable. No pelvic mass evident. No ascites. Stable T1 sclerotic lesion. Stable compression fracture of T3. Impression: Stable irregular nodular density in the posterior left upper lobe which could reflect treated disease or other posttreatment change. Interval decrease in size of hepatic lesion with peripheral calcified lesion, suggestive of response to interval therapy of the hepatic metastatic lesion. Questionable tiny residual splenic hypodense lesion, less apparent as compared to prior exam. Stable sclerotic lesion of T1. Probable diffuse infectious/inflammatory colitis of large bowel versus underdistention. Correlate cli nically. Minimal pericardial effusion. Reviewed, dictated and finalized at location M. Impression: Stable irregular nodular density in the posterior left upper lobe which could r eflect treated disease or other posttreatment change. Interval decrease in size of hepatic lesion with peripheral calcified lesion, s uggestive of response to interval therapy of the hepatic metastatic lesion. Questionable tiny residual splenic hypodense lesion, less apparent as compared to prior exam. Stable sclerotic lesion of T1. Probable diffuse infectious/inflammatory colitis of large bowel versus underdis tention. Correlate clinically. Minimal pericardial effusion.
--- OUTSIDE RECORDS SUMMARY | 2024-12-22 12:38 | XMS_ITS | Referral Summary ---
Author Organization [facility] Address [address] [place] [address] Care Team Providers Care Opto Mechanical Technician Name Role Phone Amy Saldivar DO Primary Care Provider [phone] Encounters Date Type Department Care Team Description 5 9:43 AM CDT Anesthesia Event [facility] [address] [place] [id number] Sylvia Alves MD 5 9:30 AM CDT - 5 10:00 AM CDT Surgery [facility] [address] [place] [id number] Dawood Dueñas MD COLONOSCOPY 5 8:35 AM CDT - 5 10:57 AM CDT Hospital Encounter [facility] [address] [place] [phone] Dawood Dueñas MD Discharge Disposition: Discharge to home or self care 5 9:30 AM CDT Office Visit [facility] Gastroenterology at [address] [place] [address] [phone] Laurence Patrick NP Gastrointestinal hemorrhage, unspecified gastrointestinal hemorrhage type [address] [facility] Gastroenterology at [address] [place] [address] [phone] Enrike Camacho MD 5 5:25 PM MANAGER GREEN - 5 10:39 AM MANAGER GREEN Hospital Encounter [facility] 4 Med S[address] [place] [address] Anthony Kang MD Brother, MD Jose Sandoval Manuel Emilio, MD Visconti, John L., Gastrointestinal hemorrhage, unspecified gastrointestinal hemorrhage type (Primary Dx); Drug and toxin-induced diarrhea; Chemotherapy-induced neutropenia; Hematemesis, unspecified whether nausea present Discharge Disposition: Discharge to home or self care 5 2:39 PM MANAGER GREEN Anesthesia Event [facility] GI Endo [address] [place] [address] Dario Soria MD 5 2:00 PM MANAGER GREEN - 5 2:40 PM [facility] GI Endo [address] [place] [address] Brain Rucker ra, MD ESOPHAGOGASTRODUODENOSCOPY BIOPSY 5 2:00 PM MANAGER GREEN - 5 2:30 PM [facility] GI Endo [address] [place] [address] Brain Rucker ra, MD Not Performed COLONOSCOPY [...] daily Last dose 10/12/24 @ 0900 Active lidocaine-prilocain e (EMLA) creamIndications:Ad ministration of Local Anesthesia Apply topically as needed for pain Active losartan (COZAAR) 100 mg tablet Take 1 tablet (100 mg total) by mouth daily Active potassium chloride ER 20 mEq CR tablet Take 1 tablet (20 mEq total) by mouth 2 (two) times a day Active acetaminophen (TYLENOL) 325 mg tabletIndications:F ever,Pain Take 2 tablets (650 mg total) by mouth every 4 (four) hours as needed for pain, headaches or fever 10/18/19 25 Active loperamide (IMODIUM) 2 mg capsuleIndications: Drug and toxin-induced diarrhea Take 1 capsule (2 mg total) by mouth 4 (four) times a day for 10 doses 10/18/19 25 Active polyethylene glycol (MIRALAX) 17 gram packetIndications:c onstipation Take 1 packet (17 g total) by mouth daily as needed for constipation 10/18/[address] (PROTONIX) 40 mg EC tablet Take 1 tablet (40 mg total) by mouth 2 (two) times a day 60 tablet 10/18/19 25 Active polyethylene glycol (GoLYTELY) 236-22.74-6.74 -5.86 gram solutionIndications :Gastrointestinal hemorrhage, unspecified gastrointestinal hemorrhage type Take 4,000 mL by mouth once for 1 dose 4000 mL 12/05/19 25 025 Active Problems Problem Noted Date Diagnosed Date Colon cancer screening 12/07/2024 Gastrointestinal hemorrhage, unspecified gastrointestinal hemorrhage type 10/12/2024 Assessment & Plan (12/04/2024 10:11 AM CDT): Presented to the ED on 10/12 with complaints of diarrhea, hematemesis, and was admitted for further evaluation. 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 She has been on a daily PPI and currently has no complaints. Hemoglobin has remained stable at 10.5. A colonoscopy was not performed as she was deemed to have giardia. This has since resolved and she is no longer having any GI complaints. -colonoscopy scheduled at this time Hematemesis 10/12/2024 Assessment & Plan (12/04/2024 10:08 AM CDT): No longer having complaints Social History Tobacco Use Types Packs/Day Years Used Date Smoking Tobacco: Former Cigarettes Tobacco Cessation:Counseling Given: Not Answered [facility] Utilities Answer Date Recorded In the past 12 months has [employer], gas, oil, or water [employer] threatened to shut off services in your [...] often do you attend chur ch or gnosticism services? Never 10/13/2024 Do you belong to any clubs o r organizations such as episcopal groups, unions, fraternal or athletic groups, or school groups? No 10/13/2024 How often do you attend meet ings of the clubs or organizations you belong to? Never 10/13/2024 Are you , , di vorced, , never , or living with a partner? 10/13/2024 AUDIT-C Answer Date Recorded Q1: How often do you have a drink containing alcohol? Never 12/07/2024 Q2: How many drinks containi ng alcohol do you have on a typical day when you are drinking? Patient does not drink Q3: How often do you have si x or more drinks on one occasion? Never 12/07/2024 Overall Financial Resource Strain (CARDIA) Answe r [...] any time in the past 12 m [facility], were you homeless or living in a fdc (including now)? No 10/13/2024 Personal Safety Answer Date Recorded Have you ever been in or are you currently in a harmful physical or emotional relationship or is someone making you feel afraid or unsafe? Denies 12/07/2024 Comments No Sex and Gender Information Value Date Recorded Sex Assigned at Not on file Legal Sex Female 12:32 PM MANAGER GREEN Gender Identity Not on file Sexual Orientation Not on file Last Filed Vital Signs Vital Sign Reading Time Taken Comments Blood Pressure 164/84 12/07/2024 10:45 AM CDT Pulse 68 12/07/2024 10:45 AM CDT Temperature 36.4 C (97.6 F) 12/07/2024 10:25 AM CDT Respiratory Rate 21 12/07/2024 10:45 AM CDT Oxygen Saturation 98% 12/07/2024 10:45 AM CDT Inhaled Oxygen Concentration - - Weight 66.7 kg (147 lb) 12/07/2024 8:51 AM CDT Height 154.9 cm (5' 1 ) 12/07/2024 8:51 AM CDT Body Mass Index 27.78 12/07/2024 8:51 AM CDT Plan of Treatment Not on file Medical Devices Implanted Type Area Ground Systems Engineer Device Identifier Shelf Expiration Date Model / Serial / Lot Port Right: Chest Wall Procedures Procedure Name Priority Date/Time Associated Diagnosis Comments COLONOSCOPY 12/07/2024 9:45 AM CDT Gastrointestinal hemorrhage, unspecified gastrointestinal hemorrhage type COLONOSCOPY 12/07/2024 9:43 AM CDT ECG 12-LEAD Routine 12/07/2024 9:05 AM CDT EGFR Routine 10/18/2024 5:10 AM MANAGER GREEN DIFFERENTIAL AUTO Routine 10/18/2024 5:10 AM MANAGER GREEN COMPREHENSIVE METABOLIC PANEL Routine 5:10 AM MANAGER GREEN CBC WITH AUTO DIFFERENTIAL Routine 10/18 5:10 AM MANAGER GREEN SURGICAL PATHOLOGY Routine 10/17/2024 2:54 PM MANAGER GREEN Hematemesis, unspecified whether nausea present ESOPHAGOGASTRODUODENOSCOPY BIOPSY 10/17/2024 2:41 PM MANAGER GREEN Hematemesis, unspecified whether nausea present EGD 10/17/2024 2:38 PM MANAGER GREEN EGFR Routine 10/17/2024 4:31 AM MANAGER GREEN DIFFERENTIAL AUTO Routine 10/17/2024 4:31 AM MANAGER GREEN COMPREHENSIVE METABOLIC PANEL Routine 4:31 AM MANAGER GREEN CBC WITH AUTO DIFFERENTIAL Routine 10/17 4:31 AM MANAGER GREEN EGFR Routine 10/16/2024 4:02 AM MANAGER GREEN DIFFERENTIAL AUTO Routine 10/16/2024 4:02 AM MANAGER GREEN COMPREHENSIVE METABOLIC PANEL Routine 4:02 AM MANAGER GREEN CBC WITH AUTO DIFFERENTIAL Routine 10/16 4:02 AM MANAGER GREEN STOOL CULTURE Routine 10/15/2024 4:01 PM MANAGER GREEN HIV 1/2 ANTIBODY PLUS P24 ANTIGEN Routine 10/15/2024 8:38 AM MANAGER GREEN MAGNESIUM Routine 10/15/2024 4:36 AM MANAGER GREEN EGFR Routine 10/15/2024 4:36 AM MANAGER GREEN DIFFERENTIAL AUTO Routine 10/15/2024 4:36 AM MANAGER GREEN COMPREHENSIVE METABOLIC PANEL Routine 4:36 AM MANAGER GREEN CBC WITH AUTO DIFFERENTIAL Routine 10/15 4:36 AM MANAGER GREEN CBC WITHOUT DIFFERENTIAL STAT 025 9:36 AM MANAGER GREEN MICROBIOLOGY CALLBACK Routine 10/13/2024 12:31 PM MANAGER GREEN CRYPTOSPORIDIUM AND GIARDIA ANTIGEN ASSAY Routine 10/13/2024 12:31 PM MANAGER GREEN NOROVIRUS PCR Routine 10/13/2024 12:31 PM MANAGER GREEN STOOL CULTURE Routine 10/13/2024 12:31 PM MANAGER GREEN CRP (ACUTE PHASE) Add-On 10/13/2024 10:16 AM MANAGER GREEN ERYTHROCYTE SEDIMENTATION RATE Add-On 0 10/13/2024 10:16 AM MANAGER GREEN EGFR Routine 10/13/2024 4:49 AM MANAGER GREEN DIFFERENTIAL AUTO Routine 10/13/2024 4:49 AM MANAGER GREEN FERRITIN Routine 10/13/2024 4:49 AM MANAGER GREEN IRON PROFILE W/ IBC Routine 10/13/2024 4:49 AM MANAGER GREEN CBC WITH AUTO DIFFERENTIAL Routine 10/13 4:49 AM MANAGER GREEN BASIC METABOLIC PANEL Routine 10/13/2024 4:49 AM MANAGER GREEN PROTIME-INR Routine 10/12/2024 6:25 PM MANAGER GREEN HEMOGLOBIN AND HEMATOCRIT STAT 2024 5:42 PM MANAGER GREEN B ABO / RH CONFIRMATION TESTING STAT 10/12/2024 5:[address] CHEST PE ABDOMEN PELVIS W CONTRAST ED 10/12/2024 3:27 PM MANAGER GREEN URINALYSIS AND REFLEX TO MICROSCOPIC AND CULTURE STAT 10/12/2024 3:01 PM MANAGER GREEN MANUAL DIFFERENTIAL STAT 10/12/2024 10:11 AM MANAGER GREEN EGFR STAT 10/12/2024 10:11 AM MANAGER GREEN DIFFERENTIAL AUTO STAT 10/12/2024 10:11 AM MANAGER GREEN ANTIBODY SCREEN STAT 10/12/2024 10:11 AM MANAGER GREEN ABO/RH STAT 10/12/2024 10:11 AM MANAGER GREEN TYPE AND SCREEN STAT 10/12/2024 10:11 AM MANAGER GREEN COMPREHENSIVE METABOLIC PANEL STAT 10:11 AM MANAGER GREEN CBC WITH AUTO DIFFERENTIAL STAT 10/12 10:11 AM MANAGER GREEN from Last 3 Months Results * Colonoscopy (12/07/2024 9:43 AM CDT) Anatomical Region Laterality Modality Other Narrative Procedure Note Dawood Dueñas MD - 12/07/2024 9:43 AM CDT [facility] GI ENDOSCOPY Patient Name: Regi Snyder Procedure Date: 12/07/2024 9:43 AM Date of : 1960 Admit Type: Outpatient Age: 64 Gender: Female Attending MD: Dawood Dueñas M.D. Room: [facility] ENDOSCOPY ROOM 06 Note Status: Finalized Procedure: Colonoscopy Indications: Rectal bleeding Normocytic Anemia Average risk Referring MD: Umair Garcia M.D. Providers: Dawood Dueñas M.D. Medicines: See the Anesthesia note for documentation of the administered medications Complications: No immediate complications. Estimated Blood Loss: Estimated blood loss was minimal. Procedure: Pre-Anesthesia Assessment: - Prior to the procedure, a History and Physicalwas performed, and patient medications and allergieswere reviewed. The risks and benefits of the procedureand the sedation options and risks were discussed withthe patient. All questions were answered and informed consent was obtained. Patient identification and proposed procedure were verified. After reviewingthe risks and benefits, the patient was deemed [...] was re-assessed after the procedure. The benefits, risks and alternatives of theprocedure and sedation were discussed and informed consentwas obtained. All questions were answered. Please referto the signed informed consent document in the medical record. The scope was passed under direct vision.The Colonoscope was introduced through the anus and advanced to the terminal ileum, with identificationof the appendiceal orifice and IC valve. Thecolonoscopy was performed without difficulty. The patient tolerated the procedure well. The quality of thebowel preparation was good. Scope insertion time was 14 minutes. Scope withdrawal time was 14 minutes. Prep was administered in a split dose. Findings: The perianal and digital rectal examinations were normal. The visualized terminal ileum appeared normal. Mild pancolonic diverticulosis. Internal hemorrhoids were found. The hemorrhoids were small. Impression: - The examined portion of the terminal ileum was normal. - Diverticulosis. - Internal hemorrhoids. - No specimens collected. Recommendation: - Resume previous diet today. - Discharge patient to home. - Rectal bleeding likely due to hemorrhoids -increase fiber, hydration, avoid from straining. - Patient has a contact number available for emergencies. The signs and symptoms of potential delayed complications were discussed with thepatient. Return to normal activities tomorrow. Written discharge instructions were provided to thepatient. - Repeat colonoscopy in 10 years for screening purposes. - I would be happy to see you in my GI clinic ifyou have further questions or concerns or if symptoms progress Dawood Dueñas M.D. 12/07/2024 10:26:16 AM Number of Addenda: 0 Note Initiated On: 12/07/2024 9:43 AM Recognized by the [employer] for promoting quality in endoscopy Dawood Dueñas MD ENDOSCOPY PROCEDURES Cris l Result * ECG 12 lead (12/07/2024 9:05 AM CDT) Ventricular Rate EKG/Min [address] [facility] Atrial Rate 74 BPM [facility] NC-Interval (MSEC) 138 ms [facility] QRS-Interval (MSEC) 72 ms [facility] QT-Interval (MSEC) 434 ms [facility] QTc 481 ms [facility] P Valliant 60 degrees [facility] R Valliant 25 degrees [facility] T Valliant 55 degrees [facility] Diagnosis Normal sinus rhythm Nonspecific ST abnormality Abnormal ECG No previous ECGs available Confirmed by CONNOR MÉNDEZ M.D. ([id number]) on 12/08/2024 7:19:04 AM [facility] 12/07/2024 9:05 AM CDT 12/08/2024 7:19 AM CDT Sylvia Alves MD ECG ORDERABLES Final Result [facility] * eGFR (10/18/2024 5:10 AM MANAGER GREEN) eGFR 81 >=60 mL/min/1. 73 m2 Comment: [...] was last reviewed 2021. Testing performed by: [address] [address] Blood 10/18/2024 5:10 AM MANAGER GREEN 10/18/2024 5:30 AM MANAGER GREEN us Umair Garcia MD LAB BLOOD ORDERABLES Cris matias Result [facility] [address] [facility] Department of Laboratories [place], [place] [id number] * (ABNORMAL) Differential, auto (10/18/2024 5:10 AM MANAGER GREEN) Pathologist [facility] Neutrophil abs 18.4(H) 1.5 - 6.5 K/cumm Comment:Testing performed by : [address] [address] Imm gran abs 0.4(H) 0.0 - 0.1 K/cumm QASIM TREVINO Comment:Testing performed by : [address] [address] Lymphocyte abs 1.5 0.8 - 3.3 K/cumm QASIM Comment:Testing performed by : [address] [address] Monocyte abs 1.8(H) 0.2 - 0.8 K/cumm QASIM Comment:Testing performed by : [address] [address] Eosinophil abs 0.2 0.0 - 0.5 K/cumm QASIM Comment:Testing performed by : [address], [place]., [address] Basophil abs 0.0 0.0 - 0.1 K/cumm QASIM Comment:Testing performed by : [address] [address] Neutrophil pct 82.6 % [facility] Comment: Interpretive Data Percent cell count reference ranges are not reported, since discordance with absolute values may lead to misinterpretation of CBC data. Current Interpretive Data was last revised on 2017. Testing performed by: [address] [address] Imm gran pct 1.7 % [facility] Comment: Interpretive Data Percent cell count reference ranges are not reported, since discordance with absolute values may lead to misinterpretation of CBC data. Current Interpretive Data was last revised on 2017. Testing performed by: [address] [address] Lymphocyte pct 6.7 % [facility] Comment: Interpretive Data Percent cell count reference ranges are not reported, since discordance with absolute values may lead to misinterpretation of CBC data. Current Interpretive Data was last revised on 2017. Testing performed by: [address] [address] Monocyte pct 8.0 % [facility] Comment: Interpretive Data Percent cell count reference ranges are not reported, since discordance with absolute values may lead to misinterpretation of CBC data. Current Interpretive Data was last revised on 2017. Testing performed by: [address] [address] Eosinophil pct 0.8 % [facility] Comment: Interpretive Data Percent cell count reference ranges are not reported, since discordance with absolute values may lead to misinterpretation of CBC data. Current Interpretive Data was last revised on 2017. Testing performed by: [address] [address] Basophil pct 0.2 % [facility] Comment: Interpretive Data Percent cell count reference ranges are not reported, since discordance with absolute values may lead to misinterpretation of CBC data. Current Interpretive Data was last revised on 2017. Testing performed by: [address] [address] Blood 10/18/2024 5:10 AM MANAGER GREEN 10/18/2024 5:30 AM MANAGER GREEN us Umair Garcia MD LAB BLOOD ORDERABLES Cris l Result [facility] [address] [facility] Department [place] [address] * (ABNORMAL) CBC with auto differential (10/18/2024 5:10 AM MANAGER GREEN) WBC 22.3(H) 3.8 - 9.9 K/cumm Comment:Testing performed by : [address] [address] Hgb 8.0(L) 11.9 - 15.5 g/dL [facility] Comment:Testing performed by : [address] [address] Hct 24.4(L) 35.6 - 45.5 % [facility] Comment:Testing performed by : [address] [address] Plt 229 150 - 400 K/cumm Q[facility]IM Comment:Testing performed by : [address] [address] MPV 10.4 9.1 - 12.3 fL [facility] Comment:Testing performed by : [address] [address] RBC 2.58(L) 3.90 - 5.20 M/cumm [facility]IM TREVINO Comment:Testing performed by : [address] [address] MCV 94.6 81.3 - 96.4 fL [facility] Comment:Testing performed by : [address] [address] MCH 31.0 27.1 - 33.3 pg [facility]IM TREVINO Comment:Testing performed by : [address] [address] MCHC 32.8 32.3 - 35.7 g/dL [facility] TREVINO Comment:Testing performed by : [address] [address] RDW CV 13.2 11.1 - 14.9 % [facility] TREVINO Comment:Testing performed by : [address] [address] RDW SD 45.1 35.7 - 48.1 fL [facility] TREVINO Comment:Testing performed by : [address] [address] NRBC abs 0.00 0.00 - 0.01 K/cumm [facility]IM TREVINO Comment:Testing performed by : [address] [address] Blood 10/18/2024 5:10 AM MANAGER GREEN 10/18/2024 5:30 AM MANAGER GREEN us Umair Garcia MD LAB BLOOD ORDERABLES Cris matias Result [facility] Department [place] [address] * (ABNORMAL) Comprehensive metabolic panel (10/18/2024 5:10 AM MANAGER GREEN) Sodium 140 135 - 145 mmol/L Comment:Testing performed by : [address] [address] Potassium, pl 3.6 3.3 - 4.9 mmol/L [facility] TREVINO Comment:Testing performed by : [address] [address] Chloride 106 97 - 110 mmol/L [facility] TREVINO Comment:Testing performed by : [address] [address] CO2 26 22 - 32 mmol/L [facility] TREVINO Comment:Testing performed by : [address] [address] Anion gap 8 2 - 15 mmol/L [facility] Comment:Testing performed by : [address] [address] BUN 6 6 - 25 mg/dL [facility] Comment:Testing performed by : [address] [address] Creatinine 0.80 0.60 - 1.10 mg/dL [facility] Comment:Testing performed by : [address] [address] Glucose 122 70 - 199 mg/dL [facility] Comment: Interpretive Data Fasting glucose >/= 126 [...] was last revised 2022. Testing performed by: [address] [address] Calcium 7.6(L) 8.5 - 10.3 mg/dL [facility] Comment:Testing performed by : [address] [address] Bilirubin, total <0.2 0.1 - 1.2 mg/dL [facility] Comment:Testing performed by : [address] [address] Protein, pl 5.4(L) 6.5 - 8.5 g/dL [facility] Comment:Testing performed by : [address] [address] Albumin 3.2(L) 3.5 - 5.0 g/dL [facility] Comment:Testing performed by : [address] [address] Alk phos 106 40 - 130 Units/L [facility] Comment:Testing performed by : [address] [address] ALT 10 7 - 45 Units/L [facility] Comment:Testing performed by : [facility], [address] [place] [address]., [address] AST 15 10 - 45 Units/L [facility]IM Comment:Testing performed by : [facility], [address] [place] [address]., [address] Blood 10/18/2024 5:10 AM MANAGER GREEN 10/18/2024 5:30 AM MANAGER GREEN us Umair Garcia MD LAB BLOOD ORDERABLES Cris l Result [facility] [address] Department of Laboratories [place], [place] [id number] * Surgical pathology (10/17/2024 2:54 PM MANAGER GREEN) Tissue specimen (specimen) (Gastric/Stomach biopsy) 10/17/2024 2:54 PM MANAGER GREEN Narrative PATHOLOGY [facility] - 10/20/2024 3:35 PM MANAGER GREEN [facility] Department of Pathology [address] [place] [id number] Note to Patients: This report may contain [...] : 1960 (Age: 64) Gender: F Address: [address] [place] [address] Hospital #: [id number] Service: Medical Location: Patient Type: [facility] INPATIENT Taken: 10/17/2024 Received: 10/17/2024 Accessioned: 10/19/2024 [...] dimension. Entirely submitted in A1. Jar 0. [facility]/10/19/2024 08:35 PRAVEEN Zuluaga PA([facility])CM Microscopic slide review and interpretation for this case was performed at [facility], Department of Surgical Pathology, [address], [place] [id number], [place] [address] CLIA # [id number] us Brain Rucker MD LAB PATHOLOGY ORDER CARLOS Final Result PATHOLOGY [facility] * EGD (10/17/2024 2:38 PM MANAGER GREEN) Anatomical Region Laterality Modality Other Narrative Procedure Note Garrett Chan MD - 10/17/2024 2:38 PM CST [facility] GI ENDOSCOPY Patient Name: Regi Snyder Procedure Date: 10/17/2024 2:38 PM Date of : 1960 Admit Type: Inpatient Age: 64 Gender: Female Attending MD: Garrett Chan , Room: [facility] ENDOSCOPY ROOM 01 Note Status: Finalized Procedure: [...] physician, the nurse, the anesthesiologist and the pharmacy technician program director in the pre-procedure area. Mental Status Examination:alert [...] On: 10/17/2024 2:38 PM Recognized by the [employer] for promoting quality in endoscopy Garrett Chan MD ENDOSCOPY PROCEDURES Final Resul t * eGFR (10/17/2024 4:31 AM MANAGER GREEN) eGFR 81 >=60 mL/min/1. 73 m2 Comment: [...] of Race in Diagnosing Kidney Disease, JASN 202). The CKD-EPI equation should not be used for patients with unstable renal function and has not been validated in children and those over 70. Current interpretive data was last reviewed 2021. Testing performed by: [facility], [address] [place] [address]., [address] Blood 10/17/2024 4:31 AM MANAGER GREEN 10/17/2024 5:39 AM MANAGER GREEN us Umair Garcia MD LAB BLOOD ORDERABLES Cris matias Result [facility]ARY[facility]AN [address] [facility] Department of Laboratories [place], [place] [id number] * (ABNORMAL) Differential, auto (10/17/2024 4:31 AM MANAGER GREEN) Neutrophil abs 18.9(H) 1.5 - 6.5 K/cumm Comment:Testing performed by : [address] [address] Imm gran abs 0.3(H) 0.0 - 0.1 K/cumm [facility] Comment:Testing performed by : [address] [address] Lymphocyte abs 1.0 0.8 - 3.3 K/cumm [facility] Comment:Testing performed by : [address] [address] Monocyte abs 1.6(H) 0.2 - 0.8 K/cumm [facility] Comment:Testing performed by : [address] [address] Eosinophil abs 0.0 0.0 - 0.5 K/cumm [facility] Comment:Testing performed by : [address] [address] Basophil abs 0.1 0.0 - 0.1 K/cumm [facility] Comment:Testing performed by : [address] [address] Neutrophil pct 86.6 % [facility] Comment: Interpretive Data Percent cell count reference ranges are not reported, since discordance with absolute values may lead to misinterpretation of CBC data. Current Interpretive Data was last revised on 2017. Testing performed by: [address] [address] Imm gran pct 1.4 % [facility] Comment: Interpretive Data Percent cell count reference ranges are not reported, since discordance with absolute values may lead to misinterpretation of CBC data. Current Interpretive Data was last revised on 2017. Testing performed by: [address] [address] Lymphocyte pct 4.5 % [facility] [facility] Comment: Interpretive Data Percent cell count reference ranges are not reported, since discordance with absolute values may lead to misinterpretation of CBC data. Current Interpretive Data was last revised on 2017. Testing performed by: [address] [address] Monocyte pct 7.3 % [facility] Comment: Interpretive Data Percent cell count reference ranges are not reported, since discordance with absolute values may lead to misinterpretation of CBC data. Current Interpretive Data was last revised on 2017. Testing performed by: [address] [address] Eosinophil pct 0.0 % [facility] Comment: Interpretive Data Percent cell count reference ranges are not reported, since discordance with absolute values may lead to misinterpretation of CBC data. Current Interpretive Data was last revised on 2017. Testing performed by: [address] [address] Basophil pct 0.2 % [facility] Comment: Interpretive Data Percent cell count reference ranges are not reported, since discordance with absolute values may lead to misinterpretation of CBC data. Current Interpretive Data was last revised on 2017. Testing performed by: [address] [address] Blood 10/17/2024 4:31 AM MANAGER GREEN 10/17/2024 5:40 AM MANAGER GREEN us Umair Garcia MD LAB BLOOD ORDERABLES Cris l Result [facility] [address] [facility] Department [place] [address] * (ABNORMAL) CBC with auto differential (10/17/2024 4:31 AM MANAGER GREEN) WBC 21.8(H) 3.8 - 9.9 K/cumm Comment:Testing performed by : [address] [address] Hgb 7.5(L) 11.9 - 15.5 g/dL [facility]IM Comment:Testing performed by : [address], [address] Hct 22.7(L) 35.6 - 45.5 % [facility] Comment:Testing performed by : [address] [address] Plt 202 150 - 400 K/cumm Q[facility]IM Comment:Testing performed by : [address] [address] MPV 10.3 9.1 - 12.3 fL [facility] Comment:Testing performed by : [address], [address] RBC 2.42(L) 3.90 - 5.20 M/cumm [facility] Comment:Testing performed by : [address], [address] MCV 93.8 81.3 - 96.4 fL [facility] Comment:Testing performed by : [address], [address] MCH 31.0 27.1 - 33.3 pg [facility] Comment:Testing performed by : [address] [address] MCHC 33.0 32.3 - 35.7 g/dL [facility] Comment:Testing performed by : [address], [address] RDW CV 13.0 11.1 - 14.9 % [facility] Comment:Testing performed by : [address], [address] RDW SD 43.6 35.7 - 48.1 fL [facility] Comment:Testing performed by : [address] [address] NRBC abs 0.00 0.00 - 0.01 K/cumm [facility] Comment:Testing performed by : [address] [address] Blood 10/17/2024 4:31 AM MANAGER GREEN 10/17/2024 5:40 AM MANAGER GREEN us Umair Garcia MD LAB BLOOD ORDERABLES Cris matias Result [facility] MARYVALEJOVAN [address] [facility] Department [place] [address] * (ABNORMAL) Comprehensive metabolic panel (10/17/2024 4:31 AM MANAGER GREEN) Sodium 139 135 - 145 mmol/L Comment:Testing performed by : [address] [address] Potassium, pl 3.2(L) 3.3 - 4.9 mmol/L [facility] Comment:Testing performed by : [address] [address] Chloride 105 97 - 110 mmol/L [facility] Comment:Testing performed by : [address] [address] CO2 23 22 - 32 mmol/L [facility] Comment:Testing performed by : [address] [address] Anion gap 11 2 - 15 mmol/L [facility] Comment:Testing performed by : [address] [address] BUN 3(L) 6 - 25 mg/dL [facility] Comment:Testing performed by : [address] [address] Creatinine 0.80 0.60 - 1.10 mg/dL [facility] Comment:Testing performed by : [address] [address] Glucose 153 70 - 199 mg/dL QASIM [...] was last revised 2022. Testing performed by: [address] [place]., [address] Calcium 7.6(L) 8.5 - 10.3 mg/dL [facility] Comment:Testing performed by : [address] [address] Bilirubin, total <0.2 0.1 - 1.2 mg/dL [facility] Comment:Testing performed by : [address] [address] Protein, pl 5.5(L) 6.5 - 8.5 g/dL [facility] Comment:Testing performed by : [address] [address] Albumin 3.1(L) 3.5 - 5.0 g/dL [facility] Comment:Testing performed by : [address] [address] Alk phos 89 40 - 130 Units/L [facility] Comment:Testing performed by : [address], [address] ALT 10 7 - 45 Units/L [facility] Comment:Testing performed by : [address] [address] AST 15 10 - 45 Units/L [facility] Comment:Testing performed by : [address] [address] Blood 10/17/2024 4:31 AM MANAGER GREEN 10/17/2024 5:39 AM MANAGER GREEN us Umair Garcia MD LAB BLOOD ORDERABLES Cris matias Result [facility] [address] [facility] Department of Laboratories [place], [place] [id number] * eGFR (10/16/2024 4:02 AM MANAGER GREEN) eGFR 72 >=60 mL/min/1. 73 m2 Comment: [...] of Race in Diagnosing Kidney Disease, JASN 202). The CKD-EPI equation should not be used for patients with unstable renal function and has not been validated in children and those over 70. Current interpretive data was last reviewed 2021. Testing performed by: [address] [address] Blood 10/16/2024 4:02 AM MANAGER GREEN 10/16/2024 4:17 AM MANAGER GREEN us Umair Garcia MD LAB BLOOD ORDERABLES Cris l Result [facility] MARYVALEJOVAN [address] [facility] Department [place] [address] * (ABNORMAL) Differential, auto (10/16/2024 4:02 AM MANAGER GREEN) Neutrophil abs 11.1(H) 1.5 - 6.5 K/cumm Comment:Testing performed by : [address] [address] Imm gran abs 0.4(H) 0.0 - 0.1 K/cumm [facility]IM Comment:Testing performed by : [address] [address] Lymphocyte abs 0.6(L) 0.8 - 3.3 K/cumm [facility] Comment:Testing performed by : [address] [address] Monocyte abs 1.4(H) 0.2 - 0.8 K/cumm [facility] Comment:Testing performed by : [address] [address] Eosinophil abs 0.0 0.0 - 0.5 K/cumm [facility] Comment:Testing performed by : [address] [address] Basophil abs 0.0 0.0 - 0.1 K/cumm [facility] Comment:Testing performed by : [address] [address] Neutrophil pct 81.9 % [facility] Comment: Interpretive Data Percent cell count reference ranges are not reported, since discordance with absolute values may lead to misinterpretation of CBC data. Current Interpretive Data was last revised on 2017. Testing performed by: [address] [address] Imm gran pct 2.8 % [facility] Comment: Interpretive Data Percent cell count reference ranges are not reported, since discordance with absolute values may lead to misinterpretation of CBC data. Current Interpretive Data was last revised on 2017. Testing performed by: [address] [address] Lymphocyte pct 4.7 % [facility] Comment: Interpretive Data Percent cell count reference ranges are not reported, since discordance with absolute values may lead to misinterpretation of CBC data. Current Interpretive Data was last revised on 2017. Testing performed by: [address] [address] Monocyte pct 10.4 % [facility] Comment: Interpretive Data Percent cell count reference ranges are not reported, since discordance with absolute values may lead to misinterpretation of CBC data. Current Interpretive Data was last revised on 2017. Testing performed by: [address] [address] Eosinophil pct 0.0 % [facility] Comment: Interpretive Data Percent cell count reference ranges are not reported, since discordance with absolute values may lead to misinterpretation of CBC data. Current Interpretive Data was last revised on 2017. Testing performed by: [address] [address] Basophil pct 0.2 % [facility] Comment: Interpretive Data Percent cell count reference ranges are not reported, since discordance with absolute values may lead to misinterpretation of CBC data. Current Interpretive Data was last revised on 2017. Testing performed by: [address] [address] Blood 10/16/2024 4:02 AM MANAGER GREEN 10/16/2024 4:20 AM MANAGER GREEN us Umair Garcia MD LAB BLOOD ORDERABLES Cris l Result [facility] MARYVALEJOVAN [address] [facility] Department [place] [address] * (ABNORMAL) CBC with auto differential (10/16/2024 4:02 AM MANAGER GREEN) WBC 13.5(H) 3.8 - 9.9 K/cumm Comment:Testing performed by : [address] [address] Hgb 8.8(L) 11.9 - 15.5 g/dL [facility] Comment:Testing performed by : [address] [address] Hct 26.4(L) 35.6 - 45.5 % [facility] Comment:Testing performed by : [address] [address] Plt 174 150 - 400 K/cumm [facility] Comment:Testing performed by : [address] [address] MPV 9.6 9.1 - 12.3 fL [facility] Comment:Testing performed by : [address] [address] RBC 2.82(L) 3.90 - 5.20 M/cumm [facility] Comment:Testing performed by : [address] [address] MCV 93.6 81.3 - 96.4 fL [facility] Comment:Testing performed by : [address] [address] MCH 31.2 27.1 - 33.3 pg [facility] Comment:Testing performed by : [address] [address] MCHC 33.3 32.3 - 35.7 g/dL [facility] TREVINO Comment:Testing performed by : [address] [address] RDW CV 12.6 11.1 - 14.9 % [facility] TREVINO Comment:Testing performed by : [address] [address] RDW SD 42.8 35.7 - 48.1 fL [facility] TREVINO Comment:Testing performed by : [address] [address] NRBC abs 0.00 0.00 - 0.01 K/cumm [facility] TREVINO Comment:Testing performed by : [address] [address] Blood 10/16/2024 4:02 AM MANAGER GREEN 10/16/2024 4:20 AM MANAGER GREEN us Umair Garcia MD LAB BLOOD ORDERABLES Cris matias Result [facility] TREVINO [address] [place] [address] Department [place] [address] * (ABNORMAL) Comprehensive metabolic panel (10/16/2024 4:02 AM MANAGER GREEN) Sodium 135 135 - 145 mmol/L Comment:Testing performed by : [address] [address] Potassium, pl 4.0 3.3 - 4.9 mmol/L [facility] TREVINO Comment: Delta - Results Reviewed Testing performed by: [address] [address] Chloride 103 97 - 110 mmol/L [facility] TREVINO Comment:Testing performed by : [address] [address] CO2 22 22 - 32 mmol/L [facility] TREVINO Comment:Testing performed by : [address] [address] Anion gap 10 2 - 15 mmol/L [facility] TREVINO Comment:Testing performed by : [address] [address] BUN 5(L) 6 - 25 mg/dL [facility] TREVINO Comment:Testing performed by : [address] [address] Creatinine 0.88 0.60 - 1.10 mg/dL [facility] Comment:Testing performed by : [address] [address] Glucose 156 70 - 199 mg/dL [facility]IM [...] was last revised 2022. Testing performed by: [address] [address] Calcium 8.1(L) 8.5 - 10.3 mg/dL [facility] Comment:Testing performed by : [address] [address] Bilirubin, total 0.3 0.1 - 1.2 mg/dL [facility] Comment:Testing performed by : [address] [address] Protein, pl 6.0(L) 6.5 - 8.5 g/dL [facility] Comment:Testing performed by : [address] [address] Albumin 3.3(L) 3.5 - 5.0 g/dL [facility] MARYVALEJOVAN Comment:Testing performed by : [address] [address] Alk phos 90 40 - 130 Units/L [facility] Comment:Testing performed by : [address] [address] ALT 15 7 - 45 Units/L [facility] Comment:Testing performed by : [address] [address] AST 21 10 - 45 Units/L [facility] Comment:Testing performed by : [address] [place]., [address] Blood 10/16/2024 4:02 AM MANAGER GREEN 10/16/2024 4:17 AM MANAGER GREEN Umair Garcia MD LAB BLOOD ORDERABLES Cris l Result Performing Organization Address City/[facility] Co de Phone Number MORALESFORMERLY NAMED [facility] [address] [facility] [place] [address] * Stool culture Stool Rectum (10/15/2024 4:01 PM MANAGER GREEN) Direct Specimen Exam Shiga Toxin Testing: Antigen detection assay for Shiga-toxin NEGATIVE for Shiga Toxin 1 and Shiga Toxin 2. Comment:Testing performed by : [facility], [address] [place] [address]., [address] Report Final Report: No growth of enteric bacterial pathogens [facility]IM Comment:Testing performed by : [facility], [address] [place] [address]., [address] Stool (Rectum) 10/15/2024 4: 01 PM MANAGER GREEN 10/15/2024 7:37 PM MANAGER GREEN Narrative [facility]IM - 10/19/2024 8:18 AM MANAGER GREEN Specimen received in a sterile container. Testing performed by [facility] Microbiology Laboratory ([phone]). Routine stool cultures include procedures to detect Salmonella, Shigella, Edwardsiella, Aeromonas, Pleisiomonas, Campylobacter, Yersinia, E. coli O157, and Shiga-like toxins. Vibrio is cultured only upon special request. If Vibrio is suspected, please call the laboratory at [phone]. Interpretive data was last updated December 31, 2016. us Anu Wang NP LAB MICROBIOLOGY - G ENERAL ORDERABLES Final Result Performing Organization Address City/[facility]/ZIP Co de Phone Number MORALESFORMERLY NAMED [facility] [address] [facility] Department [place] [employer] [place] [address] * HIV 1/2 Antibody plus p24 Antigen Blood (10/15/2024 8:38 AM MANAGER GREEN) HIV 1/2 ab + p24 ag Nonreactive Nonreactive Comment:Nonreactive for HIV- 1 antigen and HIV-1/HIV-2 antibodies. No laboratory evidence of HIV infection. If acute HIV infection is suspected, consider testing for HIV-1 RNA. Current interpretive data was last revised on 22. Blood 10/15/2024 8:38 AM MANAGER GREEN 10/15/2024 12:33 PM MANAGER GREEN us Aristeo Dmaon MD LAB MICROBIOLOGY - GENERAL O RDERABLES Final Result Performing Organization Address [facility]/ZIP Co de Phone Number [facility] [address] [facility] [place] [address] * eGFR (10/15/2024 4:36 AM MANAGER GREEN) eGFR 61 >=60 mL/min/1. 73 m2 Comment: [...] was last reviewed 2021. Testing performed by: [facility], [address] [place] [address]., [address] Blood 10/15/2024 4:36 AM MANAGER GREEN 10/15/2024 4:56 AM MANAGER GREEN us Umair Garcia MD LAB BLOOD ORDERABLES Cris l Result [facility] [address] [facility] Department [place] [address] * (ABNORMAL) Differential, auto (10/15/2024 4:36 AM MANAGER GREEN) Neutrophil abs 1.0(L) 1.5 - 6.5 K/cumm Comment:Testing performed by : [address] [address] Imm gran abs 0.1 0.0 - 0.1 K/cumm Q[facility]IM Comment:Testing performed by : [address] [address] Lymphocyte abs 0.9 0.8 - 3.3 K/cumm [facility] Comment:Testing performed by : [address] [address] Monocyte abs 0.8 0.2 - 0.8 K/cumm [facility] Comment:Testing performed by : [address] [address] Eosinophil abs 0.0 0.0 - 0.5 K/cumm [facility] Comment:Testing performed by : [address] [address] Basophil abs 0.0 0.0 - 0.1 K/cumm [facility] Comment:Testing performed by : [address] [address] Neutrophil pct 36.8 % [facility] Comment: Interpretive Data Percent cell count reference ranges are not reported, since discordance with absolute values may lead to misinterpretation of CBC data. Current Interpretive Data was last revised on 2017. Testing performed by: [address] [address] Imm gran pct 1.8 % [facility] Comment: Interpretive Data Percent cell count reference ranges are not reported, since discordance with absolute values may lead to misinterpretation of CBC data. Current Interpretive Data was last revised on 2017. Testing performed by: [address] [address] Lymphocyte pct 32.1 % [facility] Comment: Interpretive Data Percent cell count reference ranges are not reported, since discordance with absolute values may lead to misinterpretation of CBC data. Current Interpretive Data was last revised on 2017. Testing performed by: [address] [address] Monocyte pct 28.2 % [facility] Comment: Interpretive Data Percent cell count reference ranges are not reported, since discordance with absolute values may lead to misinterpretation of CBC data. Current Interpretive Data was last revised on 2017. Testing performed by: [address] [address] Eosinophil pct 0.7 % [facility] Comment: Interpretive Data Percent cell count reference ranges are not reported, since discordance with absolute values may lead to misinterpretation of CBC data. Current Interpretive Data was last revised on 2017. Testing performed by: [address] [address] Basophil pct 0.4 % [facility] Comment: Interpretive Data Percent cell count reference ranges are not reported, since discordance with absolute values may lead to misinterpretation of CBC data. Current Interpretive Data was last revised on 2017. Testing performed by: [address] [address] Blood 10/15/2024 4:36 AM MANAGER GREEN 10/15/2024 4:56 AM MANAGER GREEN us Umair Garcia MD LAB BLOOD ORDERABLES Cris l Result [facility] [address] [facility] Department [place] [address] * (ABNORMAL) CBC with auto differential (10/15/2024 4:36 AM MANAGER GREEN) WBC 2.8(L) 3.8 - 9.9 K/cumm Comment:Testing performed by : [address] [address] Hgb 8.6(L) 11.9 - 15.5 g/dL [facility] Comment:Testing performed by : [address] [address] Hct 25.6(L) 35.6 - 45.5 % [facility] Comment:Testing performed by : [address] [address] Plt 161 150 - 400 K/cumm QASIM Comment:Testing performed by : [address] [address] MPV 8.8(L) 9.1 - 12.3 fL [facility] Comment:Testing performed by : [address], [address] RBC 2.76(L) 3.90 - 5.20 M/cumm Q[facility]IM Comment:Testing performed by : [address], [address] MCV 92.8 81.3 - 96.4 fL [facility] Comment:Testing performed by : [address] [address] MCH 31.2 27.1 - 33.3 pg [facility] Comment:Testing performed by : [address], [address] MCHC 33.6 32.3 - 35.7 g/dL [facility] Comment:Testing performed by : [address], [address] RDW CV 12.8 11.1 - 14.9 % [facility] Comment:Testing performed by : [address], [address] RDW SD 41.8 35.7 - 48.1 fL [facility] Comment:Testing performed by : [address], [address] NRBC abs 0.00 0.00 - 0.01 K/cumm [facility] Comment:Testing performed by : [address], [address] Blood 10/15/2024 4:36 AM MANAGER GREEN 10/15/2024 4:56 AM MANAGER GREEN us Umair Garcia MD LAB BLOOD ORDERABLES Cris l Result [facility] Department [place] [address] * Magnesium (10/15/2024 4:36 AM MANAGER GREEN) [facility] Magnesium 1.7 1.4 - 2.5 mg/dL Comment:Testing performed by : [address] [address] Blood 10/15/2024 4:36 AM MANAGER GREEN 10/15/2024 4:56 AM MANAGER GREEN us Umair Garcia MD LAB BLOOD ORDERABLES Cris l Result Q[facility]IM [address] [place] [address] * (ABNORMAL) Comprehensive metabolic panel (10/15/2024 4:36 AM MANAGER GREEN) [facility] Sodium 134(L) 135 - 145 mmol/L Comment:Testing performed by : [address] [address] Potassium, pl 2.8(L) 3.3 - 4.9 mmol/L [facility] Comment:Testing performed by : [address] [address] Chloride 99 97 - 110 mmol/L [facility] Comment:Testing performed by : [address] [address] CO2 25 22 - 32 mmol/L [facility] Comment:Testing performed by : [address] [address] Anion gap 10 2 - 15 mmol/L [facility] Comment:Testing performed by : [address] [address] BUN 6 6 - 25 mg/dL [facility] Comment:Testing performed by : [address] [address] Creatinine 1.01 0.60 - 1.10 mg/dL [facility] Comment:Testing performed by : [address] [address] Glucose 104 70 - 199 mg/dL QASIM [...] was last revised 2022. Testing performed by: [address] [address] Calcium 8.0(L) 8.5 - 10.3 mg/dL [facility] Comment:Testing performed by : [address] [address] Bilirubin, total 0.4 0.1 - 1.2 mg/dL [facility] Comment:Testing performed by : [address] [address] Protein, pl 5.6(L) 6.5 - 8.5 g/dL [facility] Comment:Testing performed by : [address] [address] Albumin 3.2(L) 3.5 - 5.0 g/dL [facility] MARYVALEJOVAN Comment:Testing performed by : [address] [address] Alk phos 80 40 - 130 Units/L [facility] Comment:Testing performed by : [address] [address] ALT 17 7 - 45 Units/L [facility] Comment:Testing performed by : [address] [address] AST 23 10 - 45 Units/L [facility] Comment:Testing performed by : [address] [address] Blood 10/15/2024 4:36 AM MANAGER GREEN 10/15/2024 4:56 AM MANAGER GREEN Umair Garcia MD LAB BLOOD ORDERABLES Cris matias Result [facility] MARYVALEJOVAN [address] [facility] Department [place] [address] * (ABNORMAL) CBC without differential (10/14/2024 9:36 AM MANAGER GREEN) WBC 1.8(L) 3.8 - 9.9 K/cumm Comment:Testing performed by : [address] [address] Hgb 9.3(L) 11.9 - 15.5 g/dL [facility] Comment:Testing performed by : [address], [address] Hct 28.4(L) 35.6 - 45.5 % [facility]IM Comment:Testing performed by : [address] [address] Plt 203 150 - 400 K/cumm Q[facility]IM Comment:Testing performed by : [address] [address] MPV 8.5(L) 9.1 - 12.3 fL Q[facility] Comment:Testing performed by : [address], [address] RBC 3.04(L) 3.90 - 5.20 M/cumm [facility]IM Comment:Testing performed by : [address] [address] MCV 93.4 81.3 - 96.4 fL [facility] Comment:Testing performed by : [address], [address] MCH 30.6 27.1 - 33.3 pg [facility]IM Comment:Testing performed by : [address] [address] MCHC 32.7 32.3 - 35.7 g/dL [facility] Comment:Testing performed by : [address], [address] RDW CV 13.2 11.1 - 14.9 % Q[facility]IM Comment:Testing performed by : [address], [address] RDW SD 44.0 35.7 - 48.1 fL QASIM TREVINO Comment:Testing performed by : [facility], [address] [place] [address]., [address] NRBC abs 0.00 0.00 - 0.01 K/cumm QASIM TREVINO Comment:Testing performed by : [facility], [address] [place] [address]., [address] Blood 10/14/2024 9:36 AM MANAGER GREEN 10/14/2024 9:43 AM MANAGER GREEN us Brain Rucker MD LAB BLOOD ORDERABLE S Final Result [facility] [place] [address] * Microbiology Callback Stool (10/13/2024 12:31 PM MANAGER GREEN) TestName Giardia Ag QASIM TREVINO Comment:Testing performed by : [facility], [address] [facility], [address] Date Notified 20241012 QASIM TREVINO Comment:Testing performed by : [facility], [address] [place]., [address] Time Notified 843 QASIM TREVINO Comment:Testing performed by : [facility], [address] [facility], [address] Called/Read Back Bernadine TREVINO Comment:Testing performed by : [facility], [address] [place] [address] Called By Jun TREVINO Comment:Testing performed by : [facility], [address] [place] [address], [facility], [address] Stool 10/13/2024 12:3 1 PM MANAGER GREEN 10/13/2024 3:40 PM MANAGER GREEN us Sherie Hernandes NP LAB MICROBIOLOGY - GENERAL MELODIE QUINTERO Final Result Q[facility]IM [address] [facility] [place] [address] * Norovirus PCR Stool (10/13/2024 12:31 PM MANAGER GREEN) [facility] Norovirus GI RNA Not Detected Not Detected [facility] Comment:Testing performed by : [facility], [address] [place] [address]., [address] Norovirus GII RNA Not Detected Not Detected QASIM Comment: Interpretive data: Testing performed at the [facility] Laboratory using the [employer] Xpert Norovirus Assay. This assay uses nucleic [...] last revised on 2024. Testing performed by: [facility], [address] [place] [address]., [address] Stool 10/13/2024 12:3 1 PM MANAGER GREEN 10/13/2024 4:19 PM MANAGER GREEN Sherie Hernandes NP LAB MICROBIOLOGY - GENERAL ORDE LEON Final Result QASIM [address] [facility] [place] [address] [facility] * (ABNORMAL) Cryptosporidium and Giardia antigen assay Stool (10/13/2024 12:31 PM MANAGER GREEN) [facility] Giardia Ag Positive(A) Negative Comment:Testing performed by : [facility], [address] [place] [address]., [address] Cryptosporidium Ag Negative Negative QASIM Comment: Interpretive data: Testing performed by the [facility] Microbiology Laboratory using an immunoassay that detects Cryptosporidium and Giardia antigens in stool specimens. If comprehensive examination for ova and parasites is required, please request Ova and Parasite Examination . Testing performed by: [facility], [address] [place] [address]., [address] Stool 10/13/2024 12:3 1 PM MANAGER GREEN 10/13/2024 3:40 PM MANAGER GREEN Narrative QASIM - 10/14/2024 8:39 AM MANAGER GREEN Received in [facility] Sherie Hernandes NP LAB MICROBIOLOGY - GENERAL MELODIE QUINTERO Final Result QASIM [address] [facility] Department [place] [address] * Stool culture Stool (10/13/2024 12:31 PM MANAGER GREEN) Direct Specimen Exam Shiga Toxin Testing: Antigen detection assay for Shiga-toxin NEGATIVE for Shiga Toxin 1 and Shiga Toxin 2. Comment:Testing performed by : [facility], [address] [place] [address]., [id number] Report Final Report: No growth of enteric bacterial pathogens QASIM Comment:Testing performed by : [facility], [address] [place] [address]., [address] Stool 10/13/2024 12:3 1 PM MANAGER GREEN 10/13/2024 3:38 PM MANAGER GREEN Narrative QASIM - 10/17/2024 9:12 AM MANAGER GREEN Specimen was received in [facility]. Testing performed by [facility] Microbiology Laboratory ([phone]). Routine stool cultures include procedures to detect Salmonella, Shigella, Edwardsiella, Aeromonas, Pleisiomonas, Campylobacter, Yersinia, E. coli O157, and Shiga-like toxins. Vibrio is cultured only upon special request. If Vibrio is suspected, please call the laboratory at [phone]. Interpretive data was last updated December 31, 2016. us Sherie Hernandes NP LAB MICROBIOLOGY - GENERAL ORDWashington [facility] Final Result Performing Organization Address City/[facility]/ZIP Co de Phone Number QASIM [address] [address] * (ABNORMAL) Erythrocyte sedimentation rate (10/13/2024 10:16 AM MANAGER GREEN) Erythrocyte sedimentation rate 34(H) 1 - 30 mm/hr Comment:Testing performed by : [address] [address] Blood 10/13/2024 10:1 6 AM MANAGER GREEN 10/13/2024 10:21 AM MANAGER GREEN us Sherie Hernandes NP LAB BLOOD ORDERABLES Final Resu lt Performing Organization Address [facility] Co de Phone Number MORALES[address] [place] [employer] [place] [address] * (ABNORMAL) CRP (acute phase) (10/13/2024 10:16 AM MANAGER GREEN) Pathologist [facility] CRP 35.6(H) <=10.0 mg/L Comment:Testing performed by : [address] [address] Blood 10/13/2024 10:1 6 AM MANAGER GREEN 10/13/2024 10:21 AM MANAGER GREEN us Sherie Hernandes NP LAB BLOOD ORDERABLES Final Resu lt Performing Organization Address [facility] Co de Phone Number MORALES[address] [place] [employer] [address] * eGFR (10/13/2024 4:49 AM MANAGER GREEN) eGFR 71 >=60 mL/min/1. 73 m2 Comment: [...] was last reviewed 2021. Testing performed by: [address] [address] Blood 10/13/2024 4:49 AM MANAGER GREEN 10/13/2024 5:40 AM MANAGER GREEN us Jaime Limon MD LAB BLOOD ORDERABLES Final Re sult QASIM [address] [facility] Department [place] [address] * Differential, auto (10/13/2024 4:49 AM MANAGER GREEN) Neutrophil abs 3.4 1.5 - 6.5 K/cumm Comment:Testing performed by : [address] [address] Imm gran abs 0.0 0.0 - 0.1 K/cumm QASIM Comment:Testing performed by : [address] [address] Lymphocyte abs 1.2 0.8 - 3.3 K/cumm QASIM Comment:Testing performed by : [address] [address] Monocyte abs 0.2 0.2 - 0.8 K/cumm QASIM Comment:Testing performed by : [address] [address] Eosinophil abs 0.0 0.0 - 0.5 K/cumm QASIM Comment:Testing performed by : [address] [address] Basophil abs 0.0 0.0 - 0.1 K/cumm QASIM Comment:Testing performed by : [address] [address] Neutrophil pct 70.7 % [facility] Comment: Interpretive Data Percent cell count reference ranges are not reported, since discordance with absolute values may lead to misinterpretation of CBC data. Current Interpretive Data was last revised on 2017. Testing performed by: [address] [address] Imm gran pct 0.6 % [facility] Comment: Interpretive Data Percent cell count reference ranges are not reported, since discordance with absolute values may lead to misinterpretation of CBC data. Current Interpretive Data was last revised on 2017. Testing performed by: [address] [address] Lymphocyte pct 24.1 % [facility] Comment: Interpretive Data Percent cell count reference ranges are not reported, since discordance with absolute values may lead to misinterpretation of CBC data. Current Interpretive Data was last revised on 2017. Testing performed by: [address] [address] Monocyte pct 4.0 % [facility] Comment: Interpretive Data Percent cell count reference ranges are not reported, since discordance with absolute values may lead to misinterpretation of CBC data. Current Interpretive Data was last revised on 2017. Testing performed by: [address] [address] Eosinophil pct 0.2 % [facility] Comment: Interpretive Data Percent cell count reference ranges are not reported, since discordance with absolute values may lead to misinterpretation of CBC data. Current Interpretive Data was last revised on 2017. Testing performed by: [address] [address] Basophil pct 0.4 % [facility] Comment: Interpretive Data Percent cell count reference ranges are not reported, since discordance with absolute values may lead to misinterpretation of CBC data. Current Interpretive Data was last revised on 2017. Testing performed by: [address] [address] Blood 10/13/2024 4:49 AM MANAGER GREEN 10/13/2024 5:46 AM MANAGER GREEN Jaime Limon MD LAB BLOOD ORDERABLES Final Re sult Performing Organization Address [facility] Co de Phone Number QASIM [address] [facility] Department [place] [address] * (ABNORMAL) Iron profile w/ IBC (10/13/2024 4:49 AM MANAGER GREEN) Pathologist [facility] Iron 144 35 - 145 mcg/dL Comment:Testing performed by : [address] [address] TIBC 251 250 - 400 mcg/dL QASIM TREVINO Comment:Testing performed by : [address] [address] Transferrin saturation 57(H) 20 - 50 % QASIM TREVINO Comment:Testing performed by : [address] [address] Blood 10/13/2024 4:49 AM MANAGER GREEN 10/13/2024 5:40 AM MANAGER GREEN Jaime Limon MD LAB BLOOD ORDERABLES Final Re sult Performing Organization Address [facility] Co de Phone Number QASIM [address] [facility] [place] [address] * (ABNORMAL) CBC with auto differential (10/13/2024 4:49 AM MANAGER GREEN) Pathologist [facility] WBC 4.8 3.8 - 9.9 K/cumm Comment:Testing performed by : [address] [address] Hgb 9.9(L) 11.9 - 15.5 g/dL QASIM TREVINO Comment:Testing performed by : [address] [address] Hct 29.9(L) 35.6 - 45.5 % QASIM TREVINO Comment:Testing performed by : [address] [address] Plt 269 150 - 400 K/cumm QASIM TREVINO Comment:Testing performed by : [address] [address] MPV 8.8(L) 9.1 - 12.3 fL QASIM TREVINO Comment:Testing performed by : [address] [address] RBC 3.16(L) 3.90 - 5.20 M/cumm QASIM TREVINO Comment:Testing performed by : [address] [address] MCV 94.6 81.3 - 96.4 fL QASIM Comment:Testing performed by : [address] [address] MCH 31.3 27.1 - 33.3 pg QASIM TREVINO Comment:Testing performed by : [address] [address] MCHC 33.1 32.3 - 35.7 g/dL QASIM Comment:Testing performed by : [address] [address] RDW CV 13.3 11.1 - 14.9 % QASIM Comment:Testing performed by : [address], [address] RDW SD 45.5 35.7 - 48.1 fL QASIM Comment:Testing performed by : [address] [address] NRBC abs 0.00 0.00 - 0.01 K/cumm QASIM Comment:Testing performed by : [address] [address] Blood 10/13/2024 4:49 AM MANAGER GREEN 10/13/2024 5:46 AM MANAGER GREEN us Jaime Limon MD LAB BLOOD ORDERABLES Final Re sult QASIM [address] [facility] Department [place] [address] * (ABNORMAL) Ferritin (10/13/2024 4:49 AM MANAGER GREEN) Ferritin 587(H) 15 - 150 ng/mL Comment:Testing performed by : [address] [address] Blood 10/13/2024 4:49 AM MANAGER GREEN 10/13/2024 5:40 AM MANAGER GREEN us Jaime Limon MD LAB BLOOD ORDERABLES Final Re sult [facility] [address] [facility] Department [place] [address] * Basic metabolic panel (10/13/2024 4:49 AM MANAGER GREEN) Pathologist [facility] Sodium 137 135 - 145 mmol/L Comment:Testing performed by : [address] [address] Potassium, pl 3.5 3.3 - 4.9 mmol/L QASIM Comment:Testing performed by : [address] [address] Chloride 103 97 - 110 mmol/L QASIM Comment:Testing performed by : [address] [address] CO2 22 22 - 32 mmol/L QASIM Comment:Testing performed by : [address] [address] Anion gap 12 2 - 15 mmol/L QASIM Comment:Testing performed by : [address] [address] BUN 8 6 - 25 mg/dL QASIM Comment:Testing performed by : [address] [address] Creatinine 0.90 0.60 - 1.10 mg/dL QASIM Comment:Testing performed by : [address] [address] Glucose 96 70 - 199 mg/dL QASIM [...] was last revised 2022. Testing performed by: [facility], [address] [place] [address]., [address] Calcium 8.9 8.5 - 10.3 mg/dL QASIM Comment:Testing performed by : [address] [address] Blood 10/13/2024 4:49 AM MANAGER GREEN 10/13/2024 5:40 AM MANAGER GREEN us Jaime Limon MD LAB BLOOD ORDERABLES Final Re sult Performing Organization Address City/[facility] Co de Phone Number [facility] [address] [facility] [employer] [place], [place] [id number] * Protime-INR (10/12/2024 6:25 PM MANAGER GREEN) PT 12.9 12.0 - 14.6 sec Comment:Testing performed by : [address] [address] INR 1.0 0.9 - 1.2 QASIM Comment: Ref Range High Interpretive data Oral anticoagulant therapeutic ranges: Venous thromboembolism prophylaxis or treatment: 2.0-3.0 CARDIOLOGY Standard range: 2.0-3.0 High-intensity range: 2.5-3.5 Refer to indication-specific guidelines for appropriate target ranges for prosthetic heart valve replacement. Current interpretive data was last revised on 2019. Testing performed by: [address] [address] Blood 10/12/2024 6:25 PM MANAGER GREEN 10/12/2024 6:39 PM MANAGER GREEN Anthony Otero MD LAB BLOOD ORDERABLE S Final Result Performing Organization Address [facility] Co de Phone Number [place] [id number] [facility] [employer] [place] [address] * ABO / Rh Confirmation Testing (10/12/2024 5:42 PM MANAGER GREEN) ABO/Rh Confirmation B Positive [facility]HB Comment:Testing performed by : [address] [address] Blood 10/12/2024 5:42 PM MANAGER GREEN 10/12/2024 5:47 PM MANAGER GREEN us Alecia ENCISO LAB BLOOD ORDERABLES Final Resu lt Performing Organization Address [facility] Co de Phone Number QASIM [address] [address] MHB * (ABNORMAL) Hemoglobin and hematocrit (10/12/2024 5:42 PM MANAGER GREEN) Hgb 10.6(L) 11.9 - 15.5 g/dL Comment:Testing performed by : [facility], [address] [place] [address]., [address] Hct 32.1(L) 35.6 - 45.5 % MORALESFORMERLY NAMED [facility] Comment:Testing performed by : [address] [address] Blood 10/12/2024 5:42 PM MANAGER GREEN 10/12/2024 5:47 PM MANAGER GREEN Anthony Otero MD LAB BLOOD ORDERABLE S Final Result Performing Organization Address [facility] Co de Phone Number QASIM [address] [place] [employer] [place] [address] * CT Chest PE (CTA) Abdomen Pelvis W Contrast (10/12/2024 3:27 PM MANAGER GREEN) Anatomical Region Laterality Modality Body N/A Computed Tomogra phy 10/12/2024 3:57 PM MANAGER GREEN Narrative 10/12/2024 4:36 PM MANAGER GREEN EXAM DESCRIPTION: CT CHEST PE (CTA) ABDOMEN [...] Nelson Dangelo M.D. JA: SAMIA Report ID: [id number] Reading Location: [id number] Procedure Note Nelson Dangelo MD - 10/12/2024 [...] Nelson Dangelo M.D. JA: SAMIA Report ID: [id number] Reading Location: [place] [address] Wilmar Swann MD [facility] PROCEDURES Final Result * Urinalysis reflex to microscopic and culture Urine (10/12/2024 3:01 PM MANAGER GREEN) Color, ur Straw Yellow Comment:Testing performed by : [facility], [address] [place] [address]., [address] Clarity, ur Clear Clear QASIM Comment:Testing performed by : [facility], [address] [place] [address], [place]., [address] Specific gravity, ur 1.004 1.003 - 1.030 QASIM Comment:Testing performed by : [facility], [address] [place] [address], [place]., [address] pH, urine 5.5 QASIM Comment: Interpretive Data U rine pH is affected by diet, medications, systemic acid-base disturbances, and renal tubular function. pH may affect urinary stone formation. For example, urine pH below 6.0 may help reduce the tendency for calcium phosphate stones and pH greater than 6.0 may reduce the tendency for uric acid stone formation. Source: [facility] [employer] Current Interpretive Data was last revised on 2017 Testing performed by: [address] [address] Protein, ur ql Negative Negative QASIM Comment:Testing performed by : [address] [address] Glucose, ur ql Negative Negative QASIM Comment:Testing performed by : [address], [place]., [address] Ketones, ur Negative Negative QASIM Comment:Testing performed by : [address] [address] Bilirubin, ur Negative Negative QASIM Comment:Testing performed by : [address], [place]., [address] Blood, ur Negative Negative QASIM Comment:Testing performed by : [address] [address] Urobilinogen, ur <2.0 <2.0 mg/dL QASIM Comment:Testing performed by : [address] [address] Nitrite, ur Negative Negative QASIM Comment:Testing performed by : [address] [address] Leukocyte esterase, ur Negative Negative QASIM Comment:Testing performed by : [address] [address] UA reflex comment Reflex conditions for microscopic UA and culture not met. QASIM Comment:Testing performed by : [address], [facility] [place] [address] Urine 10/12/2024 3:01 PM MANAGER GREEN 10/12/2024 3:08 PM MANAGER GREEN Alecia ENCISO LAB MICROBIOLOGY - GENERAL ORDE RABLES Final Result Performing Organization Address City/[facility] Co de Phone Number QASIM [address] Department [place] [employer] [place] [address] * eGFR (10/12/2024 10:11 AM MANAGER GREEN) eGFR 71 >=60 mL/min/1. 73 m2 Comment: [...] was last reviewed 2021. Testing performed by: [facility], [address] [place] [address]., [address] Blood 10/12/2024 10:1 1 AM MANAGER GREEN 10/12/2024 10:23 AM MANAGER GREEN us Alecia ENCISO LAB BLOOD ORDERABLES Final Resu lt Performing Organization Address City/[facility]/ZIP Co de Phone Number QASIM [address] Department [place] [address] * (ABNORMAL) Differential, auto (10/12/2024 10:11 AM MANAGER GREEN) Neutrophil abs 6.4 1.5 - 6.5 K/cumm Comment:Testing performed by : [address] [address] Imm gran abs 0.0 0.0 - 0.1 K/cumm QASIM Comment:Testing performed by : [address], [place]., [address] Lymphocyte abs 1.1 0.8 - 3.3 K/cumm QASIM Comment:Testing performed by : [address], [place]., [address] Monocyte abs 0.1(L) 0.2 - 0.8 K/cumm [facility] Comment:Testing performed by : [address] [address] Eosinophil abs 0.0 0.0 - 0.5 K/cumm [facility] MARYVALEJOVAN Comment:Testing performed by : [address] [address] Basophil abs 0.0 0.0 - 0.1 K/cumm [facility] Comment:Testing performed by : [address] [address] Neutrophil pct 83.1 % CERFORMERLY NAMED [facility] Comment: Interpretive Data Percent cell count reference ranges are not reported, since discordance with absolute values may lead to misinterpretation of CBC data. Current Interpretive Data was last revised on 2017. Testing performed by: [address] [address] Imm gran pct 0.5 % [facility] Comment: Interpretive Data Percent cell count reference ranges are not reported, since discordance with absolute values may lead to misinterpretation of CBC data. Current Interpretive Data was last revised on 2017. Testing performed by: [address] [address] Lymphocyte pct 14.2 % CERNER Comment: Interpretive Data Percent cell count reference ranges are not reported, since discordance with absolute values may lead to misinterpretation of CBC data. Current Interpretive Data was last revised on 2017. Testing performed by: [address] [address] Monocyte pct 1.6 % CERNER Comment: Interpretive Data Percent cell count reference ranges are not reported, since discordance with absolute values may lead to misinterpretation of CBC data. Current Interpretive Data was last revised on 2017. Testing performed by: [address] [address] Eosinophil pct 0.3 % QASIM TREVINO Comment: Interpretive Data Percent cell count reference ranges are not reported, since discordance with absolute values may lead to misinterpretation of CBC data. Current Interpretive Data was last revised on 2017. Testing performed by: [address] [address] Basophil pct 0.3 % QASIM TREVINO Comment: Interpretive Data Percent cell count reference ranges are not reported, since discordance with absolute values may lead to misinterpretation of CBC data. Current Interpretive Data was last revised on 2017. Testing performed by: [address] [address] Blood 10/12/2024 10:1 1 AM MANAGER GREEN 10/12/2024 10:23 AM MANAGER GREEN us Alecia ENCISO LAB BLOOD ORDERABLES Final Resu lt QASIM TREVINO [address] [facility] Department of Laboratories [place], [place] [id number] * (ABNORMAL) CBC with auto differential (10/12/2024 10:11 AM MANAGER GREEN) WBC 7.7 3.8 - 9.9 K/cumm Comment:Testing performed by : [address] [address] Hgb 10.9(L) 11.9 - 15.5 g/dL QASIM TREVINO Comment:Testing performed by : [address] [address] Hct 32.6(L) 35.6 - 45.5 % QASIM TREVINO Comment:Testing performed by : [address] [address] Plt 333 150 - 400 K/cumm QASIM TREVINO Comment:Testing performed by : [address] [address] MPV 8.8(L) 9.1 - 12.3 fL QASIM TREVINO Comment:Testing performed by : [address] [address] RBC 3.45(L) 3.90 - 5.20 M/cumm QASIM TREVINO Comment:Testing performed by : [address] [address] MCV 94.5 81.3 - 96.4 fL QASIM Comment:Testing performed by : [address] [address] MCH 31.6 27.1 - 33.3 pg QASIM Comment:Testing performed by : [address] [address] MCHC 33.4 32.3 - 35.7 g/dL QASIM Comment:Testing performed by : [address], [address] RDW CV 13.4 11.1 - 14.9 % QASIM Comment:Testing performed by : [address], [address] RDW SD 45.5 35.7 - 48.1 fL QASIM Comment:Testing performed by : [address] [address] NRBC abs 0.00 0.00 - 0.01 K/cumm QASIM Comment:Testing performed by : [address], [address] Blood 10/12/2024 10:1 1 AM MANAGER GREEN 10/12/2024 10:23 AM MANAGER GREEN us Alecia ENCISO LAB BLOOD ORDERABLES Final Resu lt QASIM TREVINO [address] [facility] Department [place] [address] * ABO/Rh (10/12/2024 10:11 AM MANAGER GREEN) ABO/Rh B Positive Comment:Testing performed by : [address] [address] Blood 10/12/2024 10:1 1 AM MANAGER GREEN 10/12/2024 10:23 AM MANAGER GREEN Narrative QASIM - 10/12/2024 11:14 AM MANAGER GREEN Has the patient had Daratumumab or Isatuximab in the past 6 months?->Unknown Alecia ENCISO LAB BLOOD BANK TEST ORDERABLES Final Result Performing Organization Address [facility] de Phone Number QASIM [address] [address] * Manual Differential (10/12/2024 10:11 AM MANAGER GREEN) Pathologist [facility] Differential Auto Comment:Testing performed by : [address] [address] RBC morphology Consistent with RBC Indicies QASIM Comment:Testing performed by : [address] [address] Platelet estimate Automated Count Confirmed QASIM Comment:Testing performed by : [address] [address] Blood 10/12/2024 10:1 1 AM MANAGER GREEN 10/12/2024 10:23 AM MANAGER GREEN Alecia ENCISO LAB BLOOD ORDERABLES Final Resu lt Performing Organization Address [facility] de Phone Number [address] [address] * Antibody screen (10/12/2024 10:11 AM MANAGER GREEN) Sunitha, indirect, Gel Interpretation Negative ABSC Comment:Testing performed by : [address] [address] Blood 10/12/2024 10:1 1 AM MANAGER GREEN 10/12/2024 10:23 AM MANAGER GREEN Narrative QASIM - 10/12/2024 11:14 AM MANAGER GREEN Has the patient had Daratumumab or Isatuximab in the past 6 months?->Unknown Alecia ENCISO LAB BLOOD BANK TEST ORDERABLES Final Result QASIM [address] [facility] Department [place] [address] * (ABNORMAL) Comprehensive metabolic panel (10/12/2024 10:11 AM MANAGER GREEN) Sodium 131(L) 135 - 145 mmol/L Comment:Testing performed by : [address] [address] Potassium, pl 3.6 3.3 - 4.9 mmol/L QASIM Comment:Testing performed by : [address] [address] Chloride 96(L) 97 - 110 mmol/L QASIM Comment:Testing performed by : [address] [address] CO2 19(L) 22 - 32 mmol/L QASIM Comment:Testing performed by : [address] [address] Anion gap 16(H) 2 - 15 mmol/L QASIM Comment:Testing performed by : [address] [address] BUN 9 6 - 25 mg/dL QASIM Comment:Testing performed by : [address] [address] Creatinine 0.90 0.60 - 1.10 mg/dL QASIM Comment:Testing performed by : [address] [address] Glucose 153 70 - 199 mg/dL QASIM [...] was last revised 2022. Testing performed by: [facility], [address] [place] [address]., [address] Calcium 9.0 8.5 - 10.3 mg/dL QASIM Comment:Testing performed by : [address] [address] Bilirubin, total 0.3 0.1 - 1.2 mg/dL QASIM Comment:Testing performed by : [address] [address] Protein, pl 6.3(L) 6.5 - 8.5 g/dL QASIM Comment:Testing performed by : [address] [address] Albumin 3.8 3.5 - 5.0 g/dL QASIM Comment:Testing performed by : [address] [address] Alk phos 97 40 - 130 Units/L QASIM Comment:Testing performed by : [address] [address] ALT 21 7 - 45 Units/L QASIM Comment:Testing performed by : [address] [address] AST 25 10 - 45 Units/L QASIM Comment:Testing performed by : [address] [address] Blood 10/12/2024 10:1 1 AM MANAGER GREEN 10/12/2024 10:23 AM MANAGER GREEN us Alecia ENCISO LAB BLOOD ORDERABLES Final Resu lt QASIM [address] [facility] [place] [address] from Last 3 Months Insurance [facility] MEDICARE ADVANTAGE [facility] MEDICARE ADVANTAGE Advance Directives For more information, please contact: [phone] Documents on File Type Date Recorded 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
--- OUTSIDE RECORDS SUMMARY | 2024-12-22 12:38 | XMS_ITS | Clinical Summary ---
Author Organization [facility] Address [address] [place] [address] Care Team Providers Care Community Relations Officer Name Role Phone Amy Saldivar DO Primary Care Provider [phone] Allergies No known active allergies Medications dexAMETHasone [...] 10:08 AM CDT): No longer having complaints Encounters Date Type Department Care Team Description 9:43 AM CDT Anesthesia Event [facility] [address] [place] [address] Sylvia Alves MD 5 9:30 AM CDT - 5 10:00 AM CDT Surgery [facility] [address] [place] [address] Dawood Dueñas MD COLONOSCOPY 5 8:35 AM CDT - 5 10:57 AM CDT Hospital Encounter [facility] [address] [place] [address] Dawood Dueñas MD Discharge Disposition: Discharge to home or self care 5 9:30 AM CDT Office Visit [facility] Gastroenterology at [address] [place] [phone] Laurence Patrick NP Gastrointestinal hemorrhage, unspecified gastrointestinal hemorrhage type 5 Telephone [facility] Gastroenterology at [address] [place] [address] Enrike Camacho MD 5 2:39 PM CYLINDER DEVALVER Anesthesia Event [facility] [address] [place] [address] Dario Soria MD 5 2:00 PM CYLINDER DEVALVER - 5 2:40 PM CYLINDER DEVALVER Surgery [facility] [address] [place] [address] Brain Rucker ra, MD ESOPHAGOGASTRODUODENOSCOPY BIOPSY 5 2:00 PM CYLINDER DEVALVER - 5 2:30 PM CYLINDER DEVALVER Surgery [facility] Endo [address] [place] [address] Brain Rucker ra, MD Not Performed COLONOSCOPY 5 5:25 PM CYLINDER DEVALVER - 5 10:39 AM CYLINDER DEVALVER Hospital Encounter [facility] 4 Med Surg [address] [place] [address] Anthony Kang MD Brother, Michele, MD Lopez, Manuel Emilio, MD Visconti, John L., DO Gastrointestinal hemorrhage, unspecified gastrointestinal hemorrhage type (Primary Dx); Drug and toxin-induced diarrhea; Chemotherapy-induced neutropenia; Hematemesis, unspecified whether nausea present Discharge Disposition: Discharge to home or self care from Last 3 Months Surgical History Surgery Date Site/Laterality Comments CHOLECYSTECTOMY PORTACATH PLACEMENT APPENDECTOMY HYSTERECTOMY Medical History Medical History Date Comments Lung cancer (HCC) mets to bone, brain, liver, spleen HTN (hypertension) Cataract Social History Tobacco Use Types Packs/Day Years Used Date Smoking Tobacco: Former Cigarettes Tobacco Cessation:Counseling Given: Not Answered [facility] Utilities Answer Date Recorded In the past 12 months has Cash Check Card, gas, oil, or water Outright threatened to shut off services in your [...] often do you attend chur ch or christianity services? Never 10/13/2024 Do you belong to any clubs o r organizations such as orthodoxy groups, unions, fraternal or athletic groups, or [...] any time in the past 12 m [facility], were you homeless or living in a correction (including now)? No 10/13/2024 Personal Safety Answer Date Recorded Have you ever been in or are you currently in a harmful physical or emotional relationship or is someone making you feel afraid or unsafe? Denies 12/07/2024 Comments No Sex and Gender Information Value Date Recorded Sex Assigned at Not on file Legal Sex Female 12:32 PM CYLINDER DEVALVER Gender Identity Not on file Sexual Orientation [...] 12/07/2024 8:51 AM CDT Plan of Treatment Health Maintenance Due Date Last Done Comments Breast Cancer Screening-Mammogram 1960 Depression Screening 1960 Hepatitis C Screening 1960 Osteoporosis Screening-Bone Density Scan 1960 DTaP/Tdap/Td Vaccine (1 - Tdap) 1969 Hepatitis B Screening 1976 Pneumococcal vaccine 65+ (1 of 2 - PCV) 1977 Zoster Vaccine (1 of 2) 1977 Well Visit 65+ 2023 Influenza Vaccine (Season Ended) 2025 Fall Risk Assessment 12/07/2025 12/07/2024 Colon Cancer Screening-Colonoscopy 12/07/20342024 Medical Devices Implanted Type Area Tire Fabricator Device Identifier Shelf Expiration Date Model / Serial / Lot Port Right: Chest Wall Procedures Procedure Name Priority Date/Time Associated Diagnosis Comments COLONOSCOPY 12/07/2024 9:45 AM CDT Gastrointestinal hemorrhage, unspecified gastrointestinal hemorrhage type COLONOSCOPY 12/07/2024 9:43 AM CDT ECG 12-LEAD Routine 12/07/2024 9:05 AM CDT EGFR Routine 10/18/2024 5:10 AM CYLINDER DEVALVER DIFFERENTIAL AUTO Routine 10/18/2024 5:10 AM CYLINDER DEVALVER COMPREHENSIVE METABOLIC PANEL Routine 5:10 AM CYLINDER DEVALVER CBC WITH AUTO DIFFERENTIAL Routine 10/18 5:10 AM CYLINDER DEVALVER SURGICAL PATHOLOGY Routine 10/17/2024 2:54 PM CYLINDER DEVALVER Hematemesis, unspecified whether nausea present ESOPHAGOGASTRODUODENOSCOPY BIOPSY 10/17/2024 2:41 PM CYLINDER DEVALVER Hematemesis, unspecified whether nausea present EGD 10/17/2024 2:38 PM CYLINDER DEVALVER EGFR Routine 10/17/2024 4:31 AM CYLINDER DEVALVER DIFFERENTIAL AUTO Routine 10/17/2024 4:31 AM CYLINDER DEVALVER COMPREHENSIVE METABOLIC PANEL Routine 4:31 AM CYLINDER DEVALVER CBC WITH AUTO DIFFERENTIAL Routine 10/17 4:31 AM CYLINDER DEVALVER EGFR Routine 10/16/2024 4:02 AM CYLINDER DEVALVER DIFFERENTIAL AUTO Routine 10/16/2024 4:02 AM CYLINDER DEVALVER COMPREHENSIVE METABOLIC PANEL Routine 4:02 AM CYLINDER DEVALVER CBC WITH AUTO DIFFERENTIAL Routine 10/16 4:02 AM CYLINDER DEVALVER STOOL CULTURE Routine 10/15/2024 4:01 PM CYLINDER DEVALVER HIV 1/2 ANTIBODY PLUS P24 ANTIGEN Routine 10/15/2024 8:38 AM CYLINDER DEVALVER MAGNESIUM Routine 10/15/2024 4:36 AM CYLINDER DEVALVER EGFR Routine 10/15/2024 4:36 AM CYLINDER DEVALVER DIFFERENTIAL AUTO Routine 10/15/2024 4:36 AM CYLINDER DEVALVER COMPREHENSIVE METABOLIC PANEL Routine 4:36 AM CYLINDER DEVALVER CBC WITH AUTO DIFFERENTIAL Routine 10/15 4:36 AM CYLINDER DEVALVER CBC WITHOUT DIFFERENTIAL STAT 025 9:36 AM CYLINDER DEVALVER MICROBIOLOGY CALLBACK Routine 10/13/2024 12:31 PM CYLINDER DEVALVER CRYPTOSPORIDIUM AND GIARDIA ANTIGEN ASSAY Routine 10/13/2024 12:31 PM CYLINDER DEVALVER NOROVIRUS PCR Routine 10/13/2024 12:31 PM CYLINDER DEVALVER STOOL CULTURE Routine 10/13/2024 12:31 PM CYLINDER DEVALVER CRP (ACUTE PHASE) Add-On 10/13/2024 10:16 AM CYLINDER DEVALVER ERYTHROCYTE SEDIMENTATION RATE Add-On 0 10/13/2024 10:16 AM CYLINDER DEVALVER EGFR Routine 10/13/2024 4:49 AM CYLINDER DEVALVER DIFFERENTIAL AUTO Routine 10/13/2024 4:49 AM CYLINDER DEVALVER FERRITIN Routine 10/13/2024 4:49 AM CYLINDER DEVALVER IRON PROFILE W/ IBC Routine 10/13/2024 4:49 AM CYLINDER DEVALVER CBC WITH AUTO DIFFERENTIAL Routine 10/13 4:49 AM CYLINDER DEVALVER BASIC METABOLIC PANEL Routine 10/13/2024 4:49 AM CYLINDER DEVALVER PROTIME-INR Routine 10/12/2024 6:25 PM CYLINDER DEVALVER HEMOGLOBIN AND HEMATOCRIT STAT 2024 5:42 PM CYLINDER DEVALVER B ABO / RH CONFIRMATION TESTING STAT 10/12/2024 5:[address] CHEST PE ABDOMEN PELVIS W CONTRAST ED 10/12/2024 3:27 PM CYLINDER DEVALVER URINALYSIS AND REFLEX TO MICROSCOPIC AND CULTURE STAT 10/12/2024 3:01 PM CYLINDER DEVALVER MANUAL DIFFERENTIAL STAT 10/12/2024 10:11 AM CYLINDER DEVALVER EGFR STAT 10/12/2024 10:11 AM CYLINDER DEVALVER DIFFERENTIAL AUTO STAT 10/12/2024 10:11 AM CYLINDER DEVALVER ANTIBODY SCREEN STAT 10/12/2024 10:11 AM CYLINDER DEVALVER ABO/RH STAT 10/12/2024 10:11 AM CYLINDER DEVALVER TYPE AND SCREEN STAT 10/12/2024 10:11 AM CYLINDER DEVALVER COMPREHENSIVE METABOLIC PANEL STAT 10:11 AM CYLINDER DEVALVER CBC WITH AUTO DIFFERENTIAL STAT 10/12 10:11 AM CYLINDER DEVALVER from Last 3 Months Results * Colonoscopy (12/07/2024 9:43 AM CDT) Anatomical Region Laterality Modality Other Narrative Procedure Note Dawood Dueñas MD - 12/07/2024 9:43 AM CDT [facility] GI ENDOSCOPY Patient Name: Regi Snyder Procedure Date: 12/07/2024 9:43 AM Date of : 1960 Admit Type: Outpatient Age: 64 Gender: Female Attending MD: Dawood Dueñas M.D. Room: [facility] ENDOSCOPY ROOM 06 Note Status: [...] On: 12/07/2024 9:43 AM Recognized by the [employer] for promoting quality in endoscopy us Dawood Dueñas MD ENDOSCOPY PROCEDURES Cris l Result * ECG 12 lead (12/07/2024 9:05 AM CDT) Ventricular Rate EKG/Min 74 BPM [facility] Atrial Rate 74 BPM [facility] NM-Interval (MSEC) 138 ms [facility] QRS-Interval (MSEC) 72 ms [facility] QT-Interval (MSEC) 434 ms [facility] QTc 481 ms [facility] P [place] 60 degrees [facility] R [place] 25 degrees [facility] T [place] 55 degrees [facility] Diagnosis Normal sinus rhythm Nonspecific ST abnormality Abnormal ECG No previous ECGs available Confirmed by CONNOR MÉNDEZ M.D. ([id number]) on 12/08/2024 7:19:04 AM [facility] 12/07/2024 9:05 AM CDT 12/08/2024 7:19 AM CDT us Sylvia Alves MD ECG ORDERABLES Final Result Performing Organization Address City/[facility]/ZIP Co de Phone Number [facility] * eGFR (10/18/2024 5:10 AM CYLINDER DEVALVER) eGFR 81 >=60 mL/min/1. 73 m2 Comment: [...] was last reviewed 2021. Testing performed by: [facility], [address] [place] [address], [place]., [address] Blood 10/18/2024 5:10 AM CYLINDER DEVALVER 10/18/2024 5:30 AM CYLINDER DEVALVER us Umair Garcia MD LAB BLOOD ORDERABLES Cris l Result [facility] [address] [facility] Department [place] [address] * (ABNORMAL) Differential, auto (10/18/2024 5:10 AM CYLINDER DEVALVER) Neutrophil abs 18.4(H) 1.5 - 6.5 K/cumm Comment:Testing performed by : [address] [address] Imm gran abs 0.4(H) 0.0 - 0.1 K/cumm [facility] Comment:Testing performed by : [address] [address] Lymphocyte abs 1.5 0.8 - 3.3 K/cumm [facility] Comment:Testing performed by : [address] [address] Monocyte abs 1.8(H) 0.2 - 0.8 K/cumm [facility] Comment:Testing performed by : [address] [address] Eosinophil abs 0.2 0.0 - 0.5 K/cumm [facility] Comment:Testing performed by : [address] [address] Basophil abs 0.0 0.0 - 0.1 K/cumm [facility] Comment:Testing performed by : [address] [address] Neutrophil pct 82.6 % [facility] Comment: Interpretive Data Percent cell count reference ranges are not reported, since discordance with absolute values may lead to misinterpretation of CBC data. Current Interpretive Data was last revised on 2017. Testing performed by: [address] [address] Imm gran pct 1.7 % [facility] Comment: Interpretive Data Percent cell count reference ranges are not reported, since discordance with absolute values may lead to misinterpretation of CBC data. Current Interpretive Data was last revised on 2017. Testing performed by: [address] [address] Lymphocyte pct 6.7 % [facility] Comment: Interpretive Data Percent cell count reference ranges are not reported, since discordance with absolute values may lead to misinterpretation of CBC data. Current Interpretive Data was last revised on 2017. Testing performed by: [address] [address] Monocyte pct 8.0 % [facility] Comment: Interpretive Data Percent cell count reference ranges are not reported, since discordance with absolute values may lead to misinterpretation of CBC data. Current Interpretive Data was last revised on 2017. Testing performed by: [address] [address] Eosinophil pct 0.8 % [facility] Comment: Interpretive Data Percent cell count reference ranges are not reported, since discordance with absolute values may lead to misinterpretation of CBC data. Current Interpretive Data was last revised on 2017. Testing performed by: [address] [address] Basophil pct 0.2 % [facility] Comment: Interpretive Data Percent cell count reference ranges are not reported, since discordance with absolute values may lead to misinterpretation of CBC data. Current Interpretive Data was last revised on 2017. Testing performed by: [address] [address] Blood 10/18/2024 5:10 AM CYLINDER DEVALVER 10/18/2024 5:30 AM CYLINDER DEVALVER us Umair Garcia MD LAB BLOOD ORDERABLES Cris l Result [facility] [address] [facility] Department [place] [address] * (ABNORMAL) CBC with auto differential (10/18/2024 5:10 AM CYLINDER DEVALVER) WBC 22.3(H) 3.8 - 9.9 K/cumm Comment:Testing performed by : [address] [address] Hgb 8.0(L) 11.9 - 15.5 g/dL [facility] Comment:Testing performed by : [address] [address] Hct 24.4(L) 35.6 - 45.5 % [facility] Comment:Testing performed by : [address] [address] Plt 229 150 - 400 K/cumm [facility] Comment:Testing performed by : [address] [address] MPV 10.4 9.1 - 12.3 fL [facility] Comment:Testing performed by : [address], [address] RBC 2.58(L) 3.90 - 5.20 M/cumm [facility] Comment:Testing performed by : [address], [address] MCV 94.6 81.3 - 96.4 fL [facility] Comment:Testing performed by : [address] [address] MCH 31.0 27.1 - 33.3 pg [facility] Comment:Testing performed by : [address] [address] MCHC 32.8 32.3 - 35.7 g/dL [facility] Comment:Testing performed by : [address], [address] RDW CV 13.2 11.1 - 14.9 % [facility] Comment:Testing performed by : [address], [address] RDW SD 45.1 35.7 - 48.1 fL [facility] Comment:Testing performed by : [address] [address] NRBC abs 0.00 0.00 - 0.01 K/cumm [facility] Comment:Testing performed by : [address] [address] Blood 10/18/2024 5:10 AM CYLINDER DEVALVER 10/18/2024 5:30 AM CYLINDER DEVALVER us Umair Garcia MD LAB BLOOD ORDERABLES Cris l Result [facility] [address] Department [place] [address] * (ABNORMAL) Comprehensive metabolic panel (10/18/2024 5:10 AM CYLINDER DEVALVER) Sodium 140 135 - 145 mmol/L Comment:Testing performed by : [address] [address] Potassium, pl 3.6 3.3 - 4.9 mmol/L [facility] Comment:Testing performed by : [address] [address] Chloride 106 97 - 110 mmol/L [facility] Comment:Testing performed by : [address] [address] CO2 26 22 - 32 mmol/L [facility] Comment:Testing performed by : [address] [address] Anion gap 8 2 - 15 mmol/L [facility] Comment:Testing performed by : [address] [address] BUN 6 6 - 25 mg/dL [facility] Comment:Testing performed by : [address] [address] Creatinine 0.80 0.60 - 1.10 mg/dL [facility] Comment:Testing performed by : [address] [address] Glucose 122 70 - 199 mg/dL [facility] Comment: Interpretive Data Fasting glucose >/= 126 [...] was last revised 2022. Testing performed by: [address], [place]., [address] Calcium 7.6(L) 8.5 - 10.3 mg/dL [facility] Comment:Testing performed by : [address] [address] Bilirubin, total <0.2 0.1 - 1.2 mg/dL [facility] Comment:Testing performed by : [address] [address] Protein, pl 5.4(L) 6.5 - 8.5 g/dL [facility] Comment:Testing performed by : [address], [address] Albumin 3.2(L) 3.5 - 5.0 g/dL [facility] Comment:Testing performed by : [address], [facility], [address] Alk phos 106 40 - 130 Units/L [facility] Comment:Testing performed by : [address], [address] ALT 10 7 - 45 Units/L [facility] Comment:Testing performed by : [address], [address] AST 15 10 - 45 Units/L [facility] Comment:Testing performed by : [address], [address] Blood 10/18/2024 5:10 AM CYLINDER DEVALVER 10/18/2024 5:30 AM CYLINDER DEVALVER us Umair Garcia MD LAB BLOOD ORDERABLES Cris l Result Performing Organization Address City/State/ZIP Co ne Phone Number [address] Department [place] [address] * Surgical pathology (10/17/2024 2:54 PM CYLINDER DEVALVER) Tissue specimen (specimen) (Gastric/Stomach biopsy) 10/17/2024 2:54 PM CYLINDER DEVALVER Narrative PATHOLOGY [facility] - 10/20/2024 3:35 PM CYLINDER DEVALVER [facility] Department of Pathology [address] [place] [address] Note to Patients: This report may contain [...] : 1960 (Age: 64) Gender: F Address: [address] [place] [address] Hospital #: [id number] Service: Medical Location: Patient Type: [facility] INPATIENT Taken: 10/17/2024 Received: 10/17/2024 Accessioned: [...] dimension. Entirely submitted in A1. Jar [facility]. [facility]10/19/2024 08:35 PRAVEEN Zuluaga PA(ASCP)CM Microscopic slide review and interpretation for this case was performed at [facility], Department of Surgical Pathology, [address] [facility] [place], [place] [id number], [place] [address] CLIA # [id number] us Brain Rucker MD LAB PATHOLOGY ORDER CARLOS Final Result PATHOLOGY [facility] * EGD (10/17/2024 2:38 PM CYLINDER DEVALVER) Anatomical Region Laterality Modality Other Narrative Procedure Note Garrett Chan MD - 10/17/2024 2:38 PM CST [facility] GI ENDOSCOPY Patient Name: Regi Snyder Procedure Date: 10/17/2024 2:38 PM Date of : 1960 Admit Type: Inpatient Age: 64 Gender: Female Attending MD: Garrett Chan , Room: [facility] ENDOSCOPY ROOM 01 Note Status: Finalized [...] physician, the nurse, the anesthesiologist and the overhead crane technician in the pre-procedure area. Mental Status [...] On: 10/17/2024 2:38 PM Recognized by the [employer] for promoting quality in endoscopy us Garrett Chan MD ENDOSCOPY PROCEDURES Final Resul t * eGFR (10/17/2024 4:31 AM CYLINDER DEVALVER) eGFR 81 >=60 mL/min/1. 73 m2 Comment: [...] was last reviewed 2021. Testing performed by: [address] [address] Blood 10/17/2024 4:31 AM CYLINDER DEVALVER 10/17/2024 5:39 AM CYLINDER DEVALVER us Umair Garcia MD LAB BLOOD ORDERABLES Cris matias Result [facility] [address] [facility] Department [place] [address] * (ABNORMAL) Differential, auto (10/17/2024 4:31 AM CYLINDER DEVALVER) Neutrophil abs 18.9(H) 1.5 - 6.5 K/cumm Comment:Testing performed by : [address] [address] Imm gran abs 0.3(H) 0.0 - 0.1 K/cumm [facility] Comment:Testing performed by : [address] [address] Lymphocyte abs 1.0 0.8 - 3.3 K/cumm [facility] Comment:Testing performed by : [address] [address] Monocyte abs 1.6(H) 0.2 - 0.8 K/cumm [facility] Comment:Testing performed by : [address] [address] Eosinophil abs 0.0 0.0 - 0.5 K/cumm [facility] Comment:Testing performed by : [address] [place] [address] Basophil abs 0.1 0.0 - 0.1 K/cumm [facility] Comment:Testing performed by : [address] [address] Neutrophil pct 86.6 % [facility] Comment: Interpretive Data Percent cell count reference ranges are not reported, since discordance with absolute values may lead to misinterpretation of CBC data. Current Interpretive Data was last revised on 2017. Testing performed by: [address] [address] Imm gran pct 1.4 % [facility] Comment: Interpretive Data Percent cell count reference ranges are not reported, since discordance with absolute values may lead to misinterpretation of CBC data. Current Interpretive Data was last revised on 2017. Testing performed by: [address] [address] Lymphocyte pct 4.5 % [facility] Comment: Interpretive Data Percent cell count reference ranges are not reported, since discordance with absolute values may lead to misinterpretation of CBC data. Current Interpretive Data was last revised on 2017. Testing performed by: [address] [address] Monocyte pct 7.3 % [facility] Comment: Interpretive Data Percent cell count reference ranges are not reported, since discordance with absolute values may lead to misinterpretation of CBC data. Current Interpretive Data was last revised on 2017. Testing performed by: [address] [address] Eosinophil pct 0.0 % [facility] Comment: Interpretive Data Percent cell count reference ranges are not reported, since discordance with absolute values may lead to misinterpretation of CBC data. Current Interpretive Data was last revised on 2017. Testing performed by: [address] [address] Basophil pct 0.2 % [facility] Comment: Interpretive Data Percent cell count reference ranges are not reported, since discordance with absolute values may lead to misinterpretation of CBC data. Current Interpretive Data was last revised on 2017. Testing performed by: [address] [address] Blood 10/17/2024 4:31 AM CYLINDER DEVALVER 10/17/2024 5:40 AM CYLINDER DEVALVER us Umair Garcia MD LAB BLOOD ORDERABLES Cris florencio Result [facility] [address] [facility] Department [place] [address] * (ABNORMAL) CBC with auto differential (10/17/2024 4:31 AM CYLINDER DEVALVER) WBC 21.8(H) 3.8 - 9.9 K/cumm Comment:Testing performed by : [address] [address] Hgb 7.5(L) 11.9 - 15.5 g/dL [facility] Comment:Testing performed by : [address] [address] Hct 22.7(L) 35.6 - 45.5 % [facility] Comment:Testing performed by : [address] [address] Plt 202 150 - 400 K/cumm [facility] Comment:Testing performed by : [address] [address] MPV 10.3 9.1 - 12.3 fL [facility] Comment:Testing performed by : [address] [address] RBC 2.42(L) 3.90 - 5.20 M/cumm [facility] Comment:Testing performed by : [address] [address] MCV 93.8 81.3 - 96.4 fL [facility] Comment:Testing performed by : [address], [address] MCH 31.0 27.1 - 33.3 pg [facility] Comment:Testing performed by : [address], [address] MCHC 33.0 32.3 - 35.7 g/dL [facility] Comment:Testing performed by : [address] [address] RDW CV 13.0 11.1 - 14.9 % [facility] Comment:Testing performed by : [address] [address] RDW SD 43.6 35.7 - 48.1 fL [facility]VINO Comment:Testing performed by : [address] [address] NRBC abs 0.00 0.00 - 0.01 K/cumm [facility] Comment:Testing performed by : [address] [address] Blood 10/17/2024 4:31 AM CYLINDER DEVALVER 10/17/2024 5:40 AM CYLINDER DEVALVER us Umair Garcia MD LAB BLOOD ORDERABLES Cris matias Result [facility] Department [place] [address] * (ABNORMAL) Comprehensive metabolic panel (10/17/2024 4:31 AM CYLINDER DEVALVER) Sodium 139 135 - 145 mmol/L Comment:Testing performed by : [address] [address] Potassium, pl 3.2(L) 3.3 - 4.9 mmol/L [facility] Comment:Testing performed by : [address] [address] Chloride 105 97 - 110 mmol/L [facility] Comment:Testing performed by : [address] [address] CO2 23 22 - 32 mmol/L [facility] Comment:Testing performed by : [address] [address] Anion gap 11 2 - 15 mmol/L [facility] Comment:Testing performed by : [address] [address] BUN 3(L) 6 - 25 mg/dL [facility] Comment:Testing performed by : [address] [address] Creatinine 0.80 0.60 - 1.10 mg/dL [facility] Comment:Testing performed by : [address] [address] Glucose 153 70 - 199 mg/dL [facility] Comment: Interpretive Data Fasting glucose >/= [...] was last revised 2022. Testing performed by: [address] [address] Calcium 7.6(L) 8.5 - 10.3 mg/dL [facility] Comment:Testing performed by : [address] [address] Bilirubin, total <0.2 0.1 - 1.2 mg/dL [facility] Comment:Testing performed by : [address] [address] Protein, pl 5.5(L) 6.5 - 8.5 g/dL [facility] Comment:Testing performed by : [address] [address] Albumin 3.1(L) 3.5 - 5.0 g/dL [facility] Comment:Testing performed by : [address] [address] Alk phos 89 40 - 130 Units/L [facility] Comment:Testing performed by : [address] [address] ALT 10 7 - 45 Units/L [facility] Comment:Testing performed by : [address] [address] AST 15 10 - 45 Units/L [facility] Comment:Testing performed by : [address] [address] Blood 10/17/2024 4:31 AM CYLINDER DEVALVER 10/17/2024 5:39 AM CYLINDER DEVALVER us Umair Garcia MD LAB BLOOD ORDERABLES Cris l Result Performing Organization Address City/[facility]/ZIP Co de Phone Number [facility] [address] [address] * eGFR (10/16/2024 4:02 AM CYLINDER DEVALVER) eGFR 72 >=60 mL/min/1. 73 m2 Comment: [...] was last reviewed 2021. Testing performed [facility]: [facility] [facility], [address] [place] [address]., [address] Blood 10/16/2024 4:02 AM CYLINDER DEVALVER 10/16/2024 4:17 AM CYLINDER DEVALVER us Umair Garcia MD LAB BLOOD ORDERABLES Cris l Result Performing Organization Address City/[facility]/ZIP Co de Phone Number MORALES[address] [place] [address] * (ABNORMAL) Differential, auto (10/16/2024 4:02 AM CYLINDER DEVALVER) Neutrophil abs 11.1(H) 1.5 - 6.5 K/cumm Comment:Testing performed by : [facility], [address] [place] [address], [place]., [address] Imm gran abs 0.4(H) 0.0 - 0.1 K/cumm CERJOVAN Comment:Testing performed by : [address], [place]., [address] Lymphocyte abs 0.6(L) 0.8 - 3.3 K/cumm QASIM Comment:Testing performed by : [address], [place]., [address] Monocyte abs 1.4(H) 0.2 - 0.8 K/cumm [facility] Comment:Testing performed by : [address] [address] Eosinophil abs 0.0 0.0 - 0.5 K/cumm [facility] Comment:Testing performed by : [address] [address] Basophil abs 0.0 0.0 - 0.1 K/cumm [facility] Comment:Testing performed by : [address] [address] Neutrophil pct 81.9 % [facility] Comment: Interpretive Data Percent cell count reference ranges are not reported, since discordance with absolute values may lead to misinterpretation of CBC data. Current Interpretive Data was last revised on 2017. Testing performed by: [address] [address] Imm gran pct 2.8 % [facility] Comment: Interpretive Data Percent cell count reference ranges are not reported, since discordance with absolute values may lead to misinterpretation of CBC data. Current Interpretive Data was last revised on 2017. Testing performed by: [address] [address] Lymphocyte pct 4.7 % CERNER Comment: Interpretive Data Percent cell count reference ranges are not reported, since discordance with absolute values may lead to misinterpretation of CBC data. Current Interpretive Data was last revised on 2017. Testing performed by: [address] [address] Monocyte pct 10.4 % CERNER Comment: Interpretive Data Percent cell count reference ranges are not reported, since discordance with absolute values may lead to misinterpretation of CBC data. Current Interpretive Data was last revised on 2017. Testing performed by: [address] [address] Eosinophil pct 0.0 % QASIM TREVINO Comment: Interpretive Data Percent cell count reference ranges are not reported, since discordance with absolute values may lead to misinterpretation of CBC data. Current Interpretive Data was last revised on 2017. Testing performed by: [address] [address] Basophil pct 0.2 % QASIM TREVINO Comment: Interpretive Data Percent cell count reference ranges are not reported, since discordance with absolute values may lead to misinterpretation of CBC data. Current Interpretive Data was last revised on 2017. Testing performed by: [address] [address] Blood 10/16/2024 4:02 AM CYLINDER DEVALVER 10/16/2024 4:20 AM CYLINDER DEVALVER us Umair Garcia MD LAB BLOOD ORDERABLES Cris l Result QASIM [address] [facility] Department [place] [address] * (ABNORMAL) CBC with auto differential (10/16/2024 4:02 AM CYLINDER DEVALVER) WBC 13.5(H) 3.8 - 9.9 K/cumm Comment:Testing performed by : [address] [address] Hgb 8.8(L) 11.9 - 15.5 g/dL QASIM TREVINO Comment:Testing performed by : [address] [address] Hct 26.4(L) 35.6 - 45.5 % QASIM TREVINO Comment:Testing performed by : [address] [address] Plt 174 150 - 400 K/cumm QASIM TREVINO Comment:Testing performed by : [address] [address] MPV 9.6 9.1 - 12.3 fL QASIM TREVINO Comment:Testing performed by : [address] [address] RBC 2.82(L) 3.90 - 5.20 M/cumm QASIM TREVINO Comment:Testing performed by : [address], [address] MCV 93.6 81.3 - 96.4 fL QASIM TREVINO Comment:Testing performed by : [address], [address] MCH 31.2 27.1 - 33.3 pg QASIM TREVINO Comment:Testing performed by : [address], [address] MCHC 33.3 32.3 - 35.7 g/dL QASIM TREVINO Comment:Testing performed by : [address], [address] RDW CV 12.6 11.1 - 14.9 % QASIM Comment:Testing performed by : [address], [address] RDW SD 42.8 35.7 - 48.1 fL QASIM Comment:Testing performed by : [address], [address] NRBC abs 0.00 0.00 - 0.01 K/cumm QASIM TREVINO Comment:Testing performed by : [address], [address] Blood 10/16/2024 4:02 AM CYLINDER DEVALVER 10/16/2024 4:20 AM CYLINDER DEVALVER us Umair Garcia MD LAB BLOOD ORDERABLES Cris matias Result QASIM [address] [facility] Department of Laboratories [place], [place] [id number] * (ABNORMAL) Comprehensive metabolic panel (10/16/2024 4:02 AM CYLINDER DEVALVER) Sodium 135 135 - 145 mmol/L Comment:Testing performed by : [address] [address] Potassium, pl 4.0 3.3 - 4.9 mmol/L QASIM Comment: Delta - Results Reviewed Testing performed by: [address] [address] Chloride 103 97 - 110 mmol/L QASIM Comment:Testing performed by : [address], [place]., [address] CO2 22 22 - 32 mmol/L QASIM Comment:Testing performed by : [address], [place]., [address] Anion gap 10 2 - 15 mmol/L QASIM Comment:Testing performed by : [address], [place]., [address] BUN 5(L) 6 - 25 mg/dL QASIM Comment:Testing performed by : [address], [place]., [address] Creatinine 0.88 0.60 - 1.10 mg/dL QASIM Comment:Testing performed by : [address], [place]., [address] Glucose 156 70 - 199 mg/dL [facility] Comment: Interpretive Data Fasting glucose >/= [...] was last revised 2022. Testing performed by: [address] [address] Calcium 8.1(L) 8.5 - 10.3 mg/dL QASIM Comment:Testing performed by : [address], [place]., [address] Bilirubin, total 0.3 0.1 - 1.2 mg/dL QASIM Comment:Testing performed by : [address] [address] Protein, pl 6.0(L) 6.5 - 8.5 g/dL QASIM TREVINO Comment:Testing performed by : [address] [address] Albumin 3.3(L) 3.5 - 5.0 g/dL QASIM TREVINO Comment:Testing performed by : [address] [address] Alk phos 90 40 - 130 Units/L QASIM Comment:Testing performed by : [address] [address] ALT 15 7 - 45 Units/L QASIM Comment:Testing performed by : [address] [address] AST 21 10 - 45 Units/L QASIM Comment:Testing performed by : [address] [address] Blood 10/16/2024 4:02 AM CYLINDER DEVALVER 10/16/2024 4:17 AM CYLINDER DEVALVER us Umair Garcia MD LAB BLOOD ORDERABLES Cris l Result QASIM [address] [facility] Department [place] [address] * Stool culture Stool Rectum (10/15/2024 4:01 PM CYLINDER DEVALVER) Direct Specimen Exam Shiga Toxin Testing: Antigen detection assay for Shiga-toxin NEGATIVE for Shiga Toxin 1 and Shiga Toxin 2. Comment:Testing performed by : [facility], [address] [place] [address], [place]., [address] Report Final Report: No growth of enteric bacterial pathogens QASIM TREVINO Comment:Testing performed by : [address] [place] [address] Stool (Rectum) 10/15/2024 4: 01 PM CYLINDER DEVALVER 10/15/2024 7:37 PM CYLINDER DEVALVER Narrative QASIM - 10/19/2024 8:18 AM CYLINDER DEVALVER Specimen received in a sterile container. Testing performed by [facility] ([phone]). Routine stool cultures include procedures to detect Salmonella, Shigella, Edwardsiella, Aeromonas, Pleisiomonas, Campylobacter, Yersinia, E. coli O157, and Shiga-like toxins. Vibrio is cultured only upon special request. If Vibrio is suspected, please call the laboratory at [phone]. Interpretive data was last updated December 31, 2016. us Anu Wang NP LAB MICROBIOLOGY - G ENERAL ORDERABLES Final Result Performing Organization Address City/[facility]/ZIP Co de Phone Number QASIM [address] [place] [address] * HIV 1/2 Antibody plus p24 Antigen Blood (10/15/2024 8:38 AM CYLINDER DEVALVER) HIV 1/2 ab + p24 ag Nonreactive Nonreactive Comment:Nonreactive for HIV- 1 antigen and HIV-1/HIV-2 antibodies. No laboratory evidence of HIV infection. If acute HIV infection is suspected, consider testing for HIV-1 RNA. Current interpretive data was last revised on 22. Blood 10/15/2024 8:38 AM CYLINDER DEVALVER 10/15/2024 12:33 PM CYLINDER DEVALVER Aristeo Damon MD LAB MICROBIOLOGY - GENERAL O RDERABLES Final Result Performing Organization Address City/[facility]/ZIP Co de Phone Number QASIM [address] [place] [address] * eGFR (10/15/2024 4:36 AM CYLINDER DEVALVER) eGFR 61 >=60 mL/min/1. 73 m2 Comment: [...] was last reviewed 2021. Testing performed by: [address] [address] Blood 10/15/2024 4:36 AM CYLINDER DEVALVER 10/15/2024 4:56 AM CYLINDER DEVALVER us Umair Garcia MD LAB BLOOD ORDERABLES Cris l Result QASIM [address] [facility] Department of Laboratories [place], [place] [id number] * (ABNORMAL) Differential, auto (10/15/2024 4:36 AM CYLINDER DEVALVER) Neutrophil abs 1.0(L) 1.5 - 6.5 K/cumm Comment:Testing performed by : [address] [address] Imm gran abs 0.1 0.0 - 0.1 K/cumm QASIM Comment:Testing performed by : [address] [address] Lymphocyte abs 0.9 0.8 - 3.3 K/cumm QASIM Comment:Testing performed by : [address] [address] Monocyte abs 0.8 0.2 - 0.8 K/cumm QASIM Comment:Testing performed by : [address] [address] Eosinophil abs 0.0 0.0 - 0.5 K/cumm QASIM Comment:Testing performed by : [address] [address] Basophil abs 0.0 0.0 - 0.1 K/cumm QASIM Comment:Testing performed by : [address] [address] Neutrophil pct 36.8 % [facility] Comment: Interpretive Data Percent cell count reference ranges are not reported, since discordance with absolute values may lead to misinterpretation of CBC data. Current Interpretive Data was last revised on 2017. Testing performed by: [address] [address] Imm gran pct 1.8 % [facility] Comment: Interpretive Data Percent cell count reference ranges are not reported, since discordance with absolute values may lead to misinterpretation of CBC data. Current Interpretive Data was last revised on 2017. Testing performed by: [address] [address] Lymphocyte pct 32.1 % [facility] Comment: Interpretive Data Percent cell count reference ranges are not reported, since discordance with absolute values may lead to misinterpretation of CBC data. Current Interpretive Data was last revised on 2017. Testing performed by: [address] [address] Monocyte pct 28.2 % [facility] Comment: Interpretive Data Percent cell count reference ranges are not reported, since discordance with absolute values may lead to misinterpretation of CBC data. Current Interpretive Data was last revised on 2017. Testing performed by: [address] [address] Eosinophil pct 0.7 % [facility] Comment: Interpretive Data Percent cell count reference ranges are not reported, since discordance with absolute values may lead to misinterpretation of CBC data. Current Interpretive Data was last revised on 2017. Testing performed by: [address] [address] Basophil pct 0.4 % [facility] Comment: Interpretive Data Percent cell count reference ranges are not reported, since discordance with absolute values may lead to misinterpretation of CBC data. Current Interpretive Data was last revised on 2017. Testing performed by: [address] [address] Blood 10/15/2024 4:36 AM CYLINDER DEVALVER 10/15/2024 4:56 AM CYLINDER DEVALVER us Umair Garcia MD LAB BLOOD ORDERABLES Cris matias Result QASIM [address] [facility] Department [place] [address] * (ABNORMAL) CBC with auto differential (10/15/2024 4:36 AM CYLINDER DEVALVER) WBC 2.8(L) 3.8 - 9.9 K/cumm Comment:Testing performed by : [address] [address] Hgb 8.6(L) 11.9 - 15.5 g/dL QASIM Comment:Testing performed by : [address] [address] Hct 25.6(L) 35.6 - 45.5 % QASIM Comment:Testing performed by : [address] [address] Plt 161 150 - 400 K/cumm QASIM Comment:Testing performed by : [address] [address] MPV 8.8(L) 9.1 - 12.3 fL QASIM Comment:Testing performed by : [address] [address] RBC 2.76(L) 3.90 - 5.20 M/cumm QASIM Comment:Testing performed by : [address] [address] MCV 92.8 81.3 - 96.4 fL QASIM Comment:Testing performed by : [address] [address] MCH 31.2 27.1 - 33.3 pg QASIM Comment:Testing performed by : [address] [address] MCHC 33.6 32.3 - 35.7 g/dL QASIM Comment:Testing performed by : [address] [address] RDW CV 12.8 11.1 - 14.9 % QASIM Comment:Testing performed by : [address] [address] RDW SD 41.8 35.7 - 48.1 fL QASIM Comment:Testing performed by : [address] [address] NRBC abs 0.00 0.00 - 0.01 K/cumm QASIM TREVINO Comment:Testing performed by : [address] [address] Blood 10/15/2024 4:36 AM CYLINDER DEVALVER 10/15/2024 4:56 AM CYLINDER DEVALVER Umair Garcia MD LAB BLOOD ORDERABLES Cris l Result Performing Organization Address City/[facility] Co de Phone Number [address] [place] [address] * Magnesium (10/15/2024 4:36 AM CYLINDER DEVALVER) [facility] Magnesium 1.7 1.4 - 2.5 mg/dL Comment:Testing performed by : [address], [address] Blood 10/15/2024 4:36 AM CYLINDER DEVALVER 10/15/2024 4:56 AM CYLINDER DEVALVER Umair Garcia MD LAB BLOOD ORDERABLES Cris l Result Performing Organization Address [facility] Co de Phone Number [address] [place] [address] * (ABNORMAL) Comprehensive metabolic panel (10/15/2024 4:36 AM CYLINDER DEVALVER) [facility] Sodium 134(L) 135 - 145 mmol/L Comment:Testing performed by : [address] [address] Potassium, pl 2.8(L) 3.3 - 4.9 mmol/L QASIM Comment:Testing performed by : [address] [address] Chloride 99 97 - 110 mmol/L QASIM MH Comment:Testing performed by : [address] [address] CO2 25 22 - 32 mmol/L CERJOVAN Comment:Testing performed by : [address] [address] Anion gap 10 2 - 15 mmol/L QASIM Comment:Testing performed by : [address] [address] BUN 6 6 - 25 mg/dL [facility] Comment:Testing performed by : [address] [address] Creatinine 1.01 0.60 - 1.10 mg/dL [facility] Comment:Testing performed by : [address] [address] Glucose 104 70 - 199 mg/dL [facility] Comment: Interpretive Data Fasting glucose >/= [...] was last revised 2022. Testing performed by: [address] [address] Calcium 8.0(L) 8.5 - 10.3 mg/dL [facility] Comment:Testing performed by : [address] [address] Bilirubin, total 0.4 0.1 - 1.2 mg/dL [facility] Comment:Testing performed by : [address] [address] Protein, pl 5.6(L) 6.5 - 8.5 g/dL [facility] Comment:Testing performed by : [address] [address] Albumin 3.2(L) 3.5 - 5.0 g/dL QASIM TREVINO Comment:Testing performed by : [address] [address] Alk phos 80 40 - 130 Units/L QASIM TREVINO Comment:Testing performed by : [address] [address] ALT 17 7 - 45 Units/L QASIM TREVINO Comment:Testing performed by : [address] [address] AST 23 10 - 45 Units/L QASIM TREVINO Comment:Testing performed by : [address] [address] Blood 10/15/2024 4:36 AM CYLINDER DEVALVER 10/15/2024 4:56 AM CYLINDER DEVALVER us Umair Garcia MD LAB BLOOD ORDERABLES Cris matias Result QASIM [facility] Department [place] [address] * (ABNORMAL) CBC without differential (10/14/2024 9:36 AM CYLINDER DEVALVER) WBC 1.8(L) 3.8 - 9.9 K/cumm Comment:Testing performed by : [address] [address] Hgb 9.3(L) 11.9 - 15.5 g/dL QASIM TREVINO Comment:Testing performed by : [address] [address] Hct 28.4(L) 35.6 - 45.5 % QASIM TREVINO Comment:Testing performed by : [address] [address] Plt 203 150 - 400 K/cumm QASIM TREVINO Comment:Testing performed by : [address] [address] MPV 8.5(L) 9.1 - 12.3 fL QASIM TREVINO Comment:Testing performed by : [address] [address] RBC 3.04(L) 3.90 - 5.20 M/cumm QASIM TREVINO Comment:Testing performed by : [address] [address] MCV 93.4 81.3 - 96.4 fL QASIM TREVINO Comment:Testing performed by : [address] [address] MCH 30.6 27.1 - 33.3 pg QASIM TREVINO Comment:Testing performed by : [address] [address] MCHC 32.7 32.3 - 35.7 g/dL QASIM TREVINO Comment:Testing performed by : [address] [address] RDW CV 13.2 11.1 - 14.9 % QASIM TREVINO Comment:Testing performed by : [address] [address] RDW SD 44.0 35.7 - 48.1 fL QASIM TREVINO Comment:Testing performed by : [address] [address] NRBC abs 0.00 0.00 - 0.01 K/cumm QASIM TREVINO Comment:Testing performed by : [address] [address] Blood 10/14/2024 9:36 AM CYLINDER DEVALVER 10/14/2024 9:43 AM CYLINDER DEVALVER us Brain Rucker MD LAB BLOOD ORDERABLE S Final Result Performing Organization Address City/State/[facility] Co de Phone Number QASIM [address] [facility] Department [place] [address] * Microbiology Callback Stool (10/13/2024 12:31 PM CYLINDER DEVALVER) TestName Giardia Ag QASIM TREVINO Comment:Testing performed by : [facility], [address] [place]., [address] Date Notified 20241012 QASIM TREVINO Comment:Testing performed by : [facility], [address] [place] [address], [address] Time Notified 843 QASIM TREVINO Comment:Testing performed by : [facility], [address] [place]., [address] Called/Read Back Bernadine TREVINO Comment:Testing performed by : [facility], [address] [facility], [address] Called By Jun TREVINO Comment:Testing performed by : [facility], [address] [facility], [address] Stool 10/13/2024 12:3 1 PM CYLINDER DEVALVER 10/13/2024 3:40 PM CYLINDER DEVALVER Sherie Hernandes NP LAB MICROBIOLOGY - GENERAL ORDE LEON Final Result QASIM TREVINO [facility] [facility] Department [place] [address] * Norovirus PCR Stool (10/13/2024 12:31 PM CYLINDER DEVALVER) Pathologist [facility] Norovirus GI RNA Not Detected Not Detected [facility] Comment:Testing performed by : [facility], [address] [place] [address]., [address] Norovirus GII RNA Not Detected Not Detected QASIM TREVINO Comment: Interpretive data: Testing performed at the [facility] using the GeneriCoid Xpert Norovirus Assay. This assay uses nucleic [...] last revised on 2024. Testing performed by: [facility], [address] [place] [address]., [address] Stool 10/13/2024 12:3 1 PM CYLINDER DEVALVER 10/13/2024 4:19 PM CYLINDER DEVALVER Sherie Hernandes NP LAB MICROBIOLOGY - GENERAL [facility] Final Result Performing Organization Address City/[facility]/ZIP Co de Phone Number QASIM [address] [place] [address] [facility] * (ABNORMAL) Cryptosporidium and Giardia antigen assay Stool (10/13/2024 12:31 PM CYLINDER DEVALVER) Giardia Ag Positive(A) Negative Comment:Testing performed by : [facility], [address] [place] [address], [address] Cryptosporidium Ag Negative Negative [facility] Comment: Interpretive data: Testing performed by the [facility] using an immunoassay that detects Cryptosporidium and Giardia antigens in stool specimens. If comprehensive examination for ova and parasites is required, please request Ova and Parasite Examination . Testing performed by: [facility], [address] [place] [address]., [address] Stool 10/13/2024 12:3 1 PM CYLINDER DEVALVER 10/13/2024 3:40 PM CYLINDER DEVALVER Narrative [facility] - 10/14/2024 8:39 AM CYLINDER DEVALVER Received in [place] Sherie Hernandes [employer]AC[employer] CURER LAB MICROBIOLOGY - GENERAL ORDE RABHANK Final Result Performing Organization Address City/[facility]/ZIP Co de Phone Number [place] [phone] [facility] [place] [address] * Stool culture Stool (10/13/2024 12:31 PM CYLINDER DEVALVER) Direct Specimen Exam Shiga Toxin Testing: Antigen detection assay for Shiga-toxin NEGATIVE for Shiga Toxin 1 and Shiga Toxin 2. Comment:Testing performed by : [facility], [address] [place] [address], [address] Report Final Report: No growth of enteric bacterial pathogens QASIM Comment:Testing performed by : [facility], 1 [facility], [place]., [address] Stool 10/13/2024 12:3 1 PM CYLINDER DEVALVER 10/13/2024 3:38 PM CYLINDER DEVALVER Narrative QASIM - 10/17/2024 9:12 AM CYLINDER DEVALVER Specimen was received in [facility]. Testing performed by [facility] ([phone]). Routine stool cultures include procedures to detect Salmonella, Shigella, Edwardsiella, Aeromonas, Pleisiomonas, Campylobacter, Yersinia, E. coli O157, and Shiga-like toxins. Vibrio is cultured only upon special request. If Vibrio is suspected, please call the laboratory at [phone]. Interpretive data was last updated December 31, 2016. Sherie Hernandes NP LAB MICROBIOLOGY - GENERAL ORDE RABLES Final Result Performing Organization Address City/[facility]/ZIP Co de Phone Number [facility] [address] [facility] [place] [address] * (ABNORMAL) Erythrocyte sedimentation rate (10/13/2024 10:16 AM CYLINDER DEVALVER) Erythrocyte sedimentation rate 34(H) 1 - 30 mm/hr Comment:Testing performed by : [address] [address] Blood 10/13/2024 10:1 6 AM CYLINDER DEVALVER 10/13/2024 10:21 AM CYLINDER DEVALVER Sherie Hernandes NP LAB BLOOD ORDERABLES Final Resu lt Performing Organization Address City/[facility]/ZIP Co de Phone Number [place] [phone] [facility] [place] [address] * (ABNORMAL) CRP (acute phase) (10/13/2024 10:16 AM CYLINDER DEVALVER) CRP 35.6(H) <=10.0 mg/L Comment:Testing performed by : [address] [address] Blood 10/13/2024 10:1 6 AM CYLINDER DEVALVER 10/13/2024 10:21 AM CYLINDER DEVALVER us Sherie Hernandes NP LAB BLOOD ORDERABLES Final Resu lt Performing Organization Address City/[facility] Co de Phone Number QASIM [address] [place] [address] * eGFR (10/13/2024 4:49 AM CYLINDER DEVALVER) eGFR 71 >=60 mL/min/1. 73 m2 Comment: [...] was last reviewed 2021. Testing performed by: [facility], [address] [place] [address]., [address] Blood 10/13/2024 4:49 AM CYLINDER DEVALVER 10/13/2024 5:40 AM CYLINDER DEVALVER us Jaime Limon MD LAB BLOOD ORDERABLES Final Re sult Performing Organization Address City/[facility]/ZIP Co de Phone Number QASIM [address] [place] [address] * Differential, auto (10/13/2024 4:49 AM CYLINDER DEVALVER) Neutrophil abs 3.4 1.5 - 6.5 K/cumm Comment:Testing performed by : [address] [address] Imm gran abs 0.0 0.0 - 0.1 K/cumm [facility] Comment:Testing performed by : [address] [address] Lymphocyte abs 1.2 0.8 - 3.3 K/cumm [facility] Comment:Testing performed by : [address] [address] Monocyte abs 0.2 0.2 - 0.8 K/cumm [facility] Comment:Testing performed by : [address], [place]., [address] Eosinophil abs 0.0 0.0 - 0.5 K/cumm [facility] Comment:Testing performed by : [address] [address] Basophil abs 0.0 0.0 - 0.1 K/cumm [facility] Comment:Testing performed by : [address] [address] Neutrophil pct 70.7 % [facility] Comment: Interpretive Data Percent cell count reference ranges are not reported, since discordance with absolute values may lead to misinterpretation of CBC data. Current Interpretive Data was last revised on 2017. Testing performed by: [address] [address] Imm gran pct 0.6 % [facility] Comment: Interpretive Data Percent cell count reference ranges are not reported, since discordance with absolute values may lead to misinterpretation of CBC data. Current Interpretive Data was last revised on 2017. Testing performed by: [address] [address] Lymphocyte pct 24.1 % [facility] Comment: Interpretive Data Percent cell count reference ranges are not reported, since discordance with absolute values may lead to misinterpretation of CBC data. Current Interpretive Data was last revised on 2017. Testing performed by: [address] [address] Monocyte pct 4.0 % [facility] Comment: Interpretive Data Percent cell count reference ranges are not reported, since discordance with absolute values may lead to misinterpretation of CBC data. Current Interpretive Data was last revised on 2017. Testing performed by: [address] [address] Eosinophil pct 0.2 % [facility] Comment: Interpretive Data Percent cell count reference ranges are not reported, since discordance with absolute values may lead to misinterpretation of CBC data. Current Interpretive Data was last revised on 2017. Testing performed by: [address] [address] Basophil pct 0.4 % [facility] Comment: Interpretive Data Percent cell count reference ranges are not reported, since discordance with absolute values may lead to misinterpretation of CBC data. Current Interpretive Data was last revised on 2017. Testing performed by: [address] [address] Blood 10/13/2024 4:49 AM CYLINDER DEVALVER 10/13/2024 5:46 AM CYLINDER DEVALVER Jaime Limon MD LAB BLOOD ORDERABLES Final Re sult Performing Organization Address [facility] Co de Phone Number [facility] [address] [facility] Department [place] [address] * (ABNORMAL) Iron profile w/ IBC (10/13/2024 4:49 AM CYLINDER DEVALVER) Iron 144 35 - 145 mcg/dL Comment:Testing performed by : [address] [address] TIBC 251 250 - 400 mcg/dL [facility] Comment:Testing performed by : [address] [address] Transferrin saturation 57(H) 20 - 50 % [facility] Comment:Testing performed by : [address] [address] Blood 10/13/2024 4:49 AM CYLINDER DEVALVER 10/13/2024 5:40 AM CYLINDER DEVALVER Jaime Limon MD LAB BLOOD ORDERABLES Final Re sult Performing Organization Address [facility] Co de Phone Number [facility] [address] [facility] Department [place] [address] * (ABNORMAL) CBC with auto differential (10/13/2024 4:49 AM CYLINDER DEVALVER) WBC 4.8 3.8 - 9.9 K/cumm Comment:Testing performed by : [address] [address] Hgb 9.9(L) 11.9 - 15.5 g/dL [facility]IM Comment:Testing performed by : [address] [address] Hct 29.9(L) 35.6 - 45.5 % [facility] Comment:Testing performed by : [address] [address] Plt 269 150 - 400 K/cumm [facility]IM Comment:Testing performed by : [address] [address] MPV 8.8(L) 9.1 - 12.3 fL [facility]IM Comment:Testing performed by : [address] [address] RBC 3.16(L) 3.90 - 5.20 M/cumm [facility]IM Comment:Testing performed by : [address] [address] MCV 94.6 81.3 - 96.4 fL [facility] Comment:Testing performed by : [address] [address] MCH 31.3 27.1 - 33.3 pg [facility]IM Comment:Testing performed by : [address] [address] MCHC 33.1 32.3 - 35.7 g/dL [facility]IM Comment:Testing performed by : [address] [address] RDW CV 13.3 11.1 - 14.9 % [facility] Comment:Testing performed by : [address] [address] RDW SD 45.5 35.7 - 48.1 fL QASIM TREVINO Comment:Testing performed by : [address] [address] NRBC abs 0.00 0.00 - 0.01 K/cumm QASIM TREVINO Comment:Testing performed by : [address] [address] Blood 10/13/2024 4:49 AM CYLINDER DEVALVER 10/13/2024 5:46 AM CYLINDER DEVALVER Jaime Limon MD LAB BLOOD ORDERABLES Final Re sult Performing Organization Address [facility] Co de Phone Number [address] [place] [address] * (ABNORMAL) Ferritin (10/13/2024 4:49 AM CYLINDER DEVALVER) Pathologist [facility] Ferritin 587(H) 15 - 150 ng/mL Comment:Testing performed by : [address] [address] Blood 10/13/2024 4:49 AM CYLINDER DEVALVER 10/13/2024 5:40 AM CYLINDER DEVALVER Jaime Limon MD LAB BLOOD ORDERABLES Final Re sult Performing Organization Address [facility] Co de Phone Number [address] [address] * Basic metabolic panel (10/13/2024 4:49 AM CYLINDER DEVALVER) [facility] Sodium 137 135 - 145 mmol/L Comment:Testing performed by : [address] [address] Potassium, pl 3.5 3.3 - 4.9 mmol/L QASIM TREVINO Comment:Testing performed by : [address] [address] Chloride 103 97 - 110 mmol/L QASIM TREVINO Comment:Testing performed by : [address] [address] CO2 22 22 - 32 mmol/L QASIM TREVINO Comment:Testing performed by : [address] [place]., [address] Anion gap 12 2 - 15 mmol/L [facility]IM Comment:Testing performed by : [address] [address] BUN 8 6 - 25 mg/dL [facility]IM Comment:Testing performed by : [address] [address] Creatinine 0.90 0.60 - 1.10 mg/dL [facility]IM Comment:Testing performed by : [address] [address] Glucose 96 70 - 199 mg/dL QASIM [...] was last revised 2022. Testing performed by: [address] [address] Calcium 8.9 8.5 - 10.3 mg/dL [facility] Comment:Testing performed by : [address] [address] Blood 10/13/2024 4:49 AM CYLINDER DEVALVER 10/13/2024 5:40 AM CYLINDER DEVALVER us Jaime Limon MD LAB BLOOD ORDERABLES Final Re sult [facility] [address] [facility] Department [place] [address] * Protime-INR (10/12/2024 6:25 PM CYLINDER DEVALVER) PT 12.9 12.0 - 14.6 sec Comment:Testing performed by : [address] [address] INR 1.0 0.9 - 1.2 QASIM TREVINO Comment: Ref Range High Interpretive data Oral anticoagulant therapeutic ranges: Venous thromboembolism prophylaxis or treatment: 2.0-3.0 CARDIOLOGY Standard range: 2.0-3.0 High-intensity range: 2.5-3.5 Refer to indication-specific guidelines for appropriate target ranges for prosthetic heart valve replacement. Current interpretive data was last revised on 2019. Testing performed by: [address] [address] Blood 10/12/2024 6:25 PM CYLINDER DEVALVER 10/12/2024 6:39 PM CYLINDER DEVALVER Anthony Otero MD LAB BLOOD ORDERABLE S Final Result Performing Organization Address [facility] Co de Phone Number [facility] [address] [place] [address] * ABO / Rh Confirmation Testing (10/12/2024 5:42 PM CYLINDER DEVALVER) ABO/Rh Confirmation B Positive [facility]HB Comment:Testing performed by : [address] [address] Blood 10/12/2024 5:42 PM CYLINDER DEVALVER 10/12/2024 5:47 PM CYLINDER DEVALVER us Alecia ENCISO LAB BLOOD ORDERABLES Final Resu lt Performing Organization Address City/[facility]/ZIP Co de Phone Number MORALES[address] [place] [employer] [place] [address] MHB * (ABNORMAL) Hemoglobin and hematocrit (10/12/2024 5:42 PM CYLINDER DEVALVER) Hgb 10.6(L) 11.9 - 15.5 g/dL Comment:Testing performed by : [address] [address] Hct 32.1(L) 35.6 - 45.5 % [facility]IM Comment:Testing performed by : [address] [address] Blood 10/12/2024 5:42 PM CYLINDER DEVALVER 10/12/2024 5:47 PM CYLINDER DEVALVER us Anthony Otero MD LAB BLOOD ORDERABLE S Final Result [facility] [address] [facility] Department [place] [address] * CT Chest PE (CTA) Abdomen Pelvis W Contrast (10/12/2024 3:27 PM CYLINDER DEVALVER) Anatomical Region Laterality Modality Body N/A Computed Tomogra phy 10/12/2024 3:57 PM CYLINDER DEVALVER Narrative 10/12/2024 4:36 PM CYLINDER DEVALVER EXAM DESCRIPTION: CT CHEST PE (CTA) ABDOMEN [...] Nelson Dangelo M.D. JA: SAMIA Report ID: [id number] Reading Location: [id number] Procedure Note Nelson Dangelo MD - 10/12/2024 [...] Nelson Dangelo M.D. JA: SAMIA Report ID: [id number] Reading Location: [place] [address] us Wilmar Swann MD IMG CT PROCEDURES Final Result * Urinalysis reflex to microscopic and culture Urine (10/12/2024 3:01 PM CYLINDER DEVALVER) Color, ur Straw Yellow Comment:Testing performed by : [address] [address] Clarity, ur Clear Clear Q[facility]IM Comment:Testing performed by : [address] [address] Specific gravity, ur 1.004 1.003 - 1.030 [facility] Comment:Testing performed by : [address] [address] pH, urine 5.5 [facility]IM Comment: Interpretive Data U rine pH is affected by diet, medications, systemic acid-base disturbances, and renal tubular function. pH may affect urinary stone formation. For example, urine pH below 6.0 may help reduce the tendency for calcium phosphate stones and pH greater than 6.0 may reduce the tendency for uric acid stone formation. Source: [facility] Current Interpretive Data was last revised on 2017 Testing performed by: [address] [address] Protein, ur ql Negative Negative [facility] Comment:Testing performed by : [address] [address] Glucose, ur ql Negative Negative [facility] Comment:Testing performed by : [address] [address] Ketones, ur Negative Negative [facility]IM Comment:Testing performed by : [address] [address] Bilirubin, ur Negative Negative QASIM Comment:Testing performed by : [facility], [address] [place] [address]., [address] Blood, ur Negative Negative QASIM TREVINO Comment:Testing performed by : [address] [address] Urobilinogen, ur <2.0 <2.0 mg/dL QASIM TREVINO Comment:Testing performed by : [address], [place]., [address] Nitrite, ur Negative Negative QASIM TREVINO Comment:Testing performed by : [address], [place]., [address] Leukocyte esterase, ur Negative Negative QASIM Comment:Testing performed by : [address], [place]., [address] UA reflex comment Reflex conditions for microscopic UA and culture not met. QASIM TREVINO Comment:Testing performed by : [address], [place]., [address] Urine 10/12/2024 3:01 PM CYLINDER DEVALVER 10/12/2024 3:08 PM CYLINDER DEVALVER us Alecia ENCISO LAB MICROBIOLOGY - GENERAL MELODIE QUINTERO Final Result [facility] [address] [facility] Department [place] [address] * eGFR (10/12/2024 10:11 AM CYLINDER DEVALVER) eGFR 71 >=60 mL/min/1. 73 m2 Comment: [...] was last reviewed 2021. Testing performed by: [address] [address] Blood 10/12/2024 10:1 1 AM CYLINDER DEVALVER 10/12/2024 10:23 AM CYLINDER DEVALVER Alecia ENCISO LAB BLOOD ORDERABLES Final Resu lt [facility] [address] [facility] Department [place] [address] * (ABNORMAL) Differential, auto (10/12/2024 10:11 AM CYLINDER DEVALVER) Neutrophil abs 6.4 1.5 - 6.5 K/cumm Comment:Testing performed by : [address] [address] Imm gran abs 0.0 0.0 - 0.1 K/cumm [facility]IM Comment:Testing performed by : [address] [address] Lymphocyte abs 1.1 0.8 - 3.3 K/cumm [facility]IM Comment:Testing performed by : [address] [address] Monocyte abs 0.1(L) 0.2 - 0.8 K/cumm [facility]IM Comment:Testing performed by : [address] [address] Eosinophil abs 0.0 0.0 - 0.5 K/cumm QASIM Comment:Testing performed by : [address] [address] Basophil abs 0.0 0.0 - 0.1 K/cumm [facility]IM Comment:Testing performed by : [address] [address] Neutrophil pct 83.1 % [facility] Comment: Interpretive Data Percent cell count reference ranges are not reported, since discordance with absolute values may lead to misinterpretation of CBC data. Current Interpretive Data was last revised on 2017. Testing performed by: [address] [address] Imm gran pct 0.5 % [facility] Comment: Interpretive Data Percent cell count reference ranges are not reported, since discordance with absolute values may lead to misinterpretation of CBC data. Current Interpretive Data was last revised on 2017. Testing performed by: [address] [address] Lymphocyte pct 14.2 % [facility] Comment: Interpretive Data Percent cell count reference ranges are not reported, since discordance with absolute values may lead to misinterpretation of CBC data. Current Interpretive Data was last revised on 2017. Testing performed by: [address] [address] Monocyte pct 1.6 % [facility] Comment: Interpretive Data Percent cell count reference ranges are not reported, since discordance with absolute values may lead to misinterpretation of CBC data. Current Interpretive Data was last revised on 2017. Testing performed by: [address] [address] Eosinophil pct 0.3 % [facility] Comment: Interpretive Data Percent cell count reference ranges are not reported, since discordance with absolute values may lead to misinterpretation of CBC data. Current Interpretive Data was last revised on 2017. Testing performed by: [address] [address] Basophil pct 0.3 % [facility] Comment: Interpretive Data Percent cell count reference ranges are not reported, since discordance with absolute values may lead to misinterpretation of CBC data. Current Interpretive Data was last revised on 2017. Testing performed by: [address] [address] Blood 10/12/2024 10:1 1 AM CYLINDER DEVALVER 10/12/2024 10:23 AM CYLINDER DEVALVER us Alecia ENCISO LAB BLOOD ORDERABLES Final Resu lt [facility] [address] [facility] Department [place] [address] * (ABNORMAL) CBC with auto differential (10/12/2024 10:11 AM CYLINDER DEVALVER) [facility] WBC 7.7 3.8 - 9.9 K/cumm Comment:Testing performed by : [address] [address] Hgb 10.9(L) 11.9 - 15.5 g/dL QASIM Comment:Testing performed by : [address], [address] Hct 32.6(L) 35.6 - 45.5 % [facility]IM Comment:Testing performed by : [address], [address] Plt 333 150 - 400 K/cumm QASIM Comment:Testing performed by : [address] [address] MPV 8.8(L) 9.1 - 12.3 fL QASIM Comment:Testing performed by : [address], [address] RBC 3.45(L) 3.90 - 5.20 M/cumm QASIM Comment:Testing performed by : [address], [address] MCV 94.5 81.3 - 96.4 fL [facility]IM Comment:Testing performed by : [address] [address] MCH 31.6 27.1 - 33.3 pg QASIM Comment:Testing performed by : [address], [address] MCHC 33.4 32.3 - 35.7 g/dL [facility]IM Comment:Testing performed by : [address], [address] RDW CV 13.4 11.1 - 14.9 % Q[facility]IM Comment:Testing performed by : [address], [address] RDW SD 45.5 35.7 - 48.1 fL [facility]IM Comment:Testing performed by : [address], [address] NRBC abs 0.00 0.00 - 0.01 K/cumm QASIM TREVINO Comment:Testing performed by : [address] [address] Blood 10/12/2024 10:1 1 AM CYLINDER DEVALVER 10/12/2024 10:23 AM CYLINDER DEVALVER Alecia Reynoso MO LAB BLOOD ORDERABLES Final Resu lt Performing Organization Address [facility] de Phone Number QASIM [address] [place] [address] * ABO/Rh (10/12/2024 10:11 AM CYLINDER DEVALVER) Pathologist [facility] ABO/Rh B Positive Comment:Testing performed by : [address] [address] Blood 10/12/2024 10:1 1 AM CYLINDER DEVALVER 10/12/2024 10:23 AM CYLINDER DEVALVER Narrative QASIM TREVINO - 10/12/2024 11:14 AM CYLINDER DEVALVER Has the patient had Daratumumab or Isatuximab in the past 6 months?->Unknown Alecia ENCISO LAB BLOOD BANK TEST ORDERABLES Final Result Performing Organization Address [facility] de Phone Number MORAL[address] [address] * Manual Differential (10/12/2024 10:11 AM CYLINDER DEVALVER) Differential Auto Comment:Testing performed by : [address] [address] RBC morphology Consistent with RBC Indicies QASIM TREVINO Comment:Testing performed by : [address] [address] Platelet estimate Automated Count Confirmed QASIM TREVINO Comment:Testing performed by : [address] [address] Blood 10/12/2024 10:1 1 AM CYLINDER DEVALVER 10/12/2024 10:23 AM CYLINDER DEVALVER Alecia ENCISO LAB BLOOD ORDERABLES Final Resu lt Performing Organization Address [facility] de Phone Number MORALES[address] [address] * Antibody screen (10/12/2024 10:11 AM CYLINDER DEVALVER) [facility] Sunitha, indirect, Gel Interpretation Negative ABSC Comment:Testing performed by : [address] [address] Blood 10/12/2024 10:1 1 AM CYLINDER DEVALVER 10/12/2024 10:23 AM CYLINDER DEVALVER Narrative [facility] - 10/12/2024 11:14 AM CYLINDER DEVALVER Has the patient had Daratumumab or Isatuximab in the past 6 months?->Unknown Alecia ENCISO LAB BLOOD BANK TEST ORDERABLES Final Result Performing Organization Address [facility] de Phone Number MORALES[address] [address] * (ABNORMAL) Comprehensive metabolic panel (10/12/2024 10:11 AM CYLINDER DEVALVER) [facility] Sodium 131(L) 135 - 145 mmol/L Comment:Testing performed by : [address] [address] Potassium, pl 3.6 3.3 - 4.9 mmol/L QASIM Comment:Testing performed by : [address] [address] Chloride 96(L) 97 - 110 mmol/L QASIM Comment:Testing performed by : [address] [address] CO2 19(L) 22 - 32 mmol/L QASIM Comment:Testing performed by : [address] [address] Anion gap 16(H) 2 - 15 mmol/L QASIM Comment:Testing performed by : [address] [address] BUN 9 6 - 25 mg/dL QASIM Comment:Testing performed by : [address] [address] Creatinine 0.90 0.60 - 1.10 mg/dL QASIM Comment:Testing performed by : [address] [address] Glucose 153 70 - 199 mg/dL QASIM [...] was last revised 2022. Testing performed by: [address] [address] Calcium 9.0 8.5 - 10.3 mg/dL QASIM Comment:Testing performed by : [address] [address] Bilirubin, total 0.3 0.1 - 1.2 mg/dL QASIM Comment:Testing performed by : [address] [address] Protein, pl 6.3(L) 6.5 - 8.5 g/dL QASIM Comment:Testing performed by : [address] [address] Albumin 3.8 3.5 - 5.0 g/dL [facility] Comment:Testing performed by : [address] [address] Alk phos 97 40 - 130 Units/L QASIM Comment:Testing performed by : [address] [address] ALT 21 7 - 45 Units/L QASIM Comment:Testing performed by : [address], [address] AST 25 10 - 45 Units/L QASIM Comment:Testing performed by : [address], [place]., [address] Blood 10/12/2024 10:1 1 AM CYLINDER DEVALVER 10/12/2024 10:23 AM CYLINDER DEVALVER us Alecia ENCISO LAB BLOOD ORDERABLES Final Resu lt [facility] [address] 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
--- OUTSIDE RECORDS SUMMARY | 2024-12-22 12:39 | XMS_ITS | Clinical Summary ---
Author Organization [facility] Address [address] [place] [address] [place] [address] Care Team Providers Care Marklogic Developer Name Role Phone rIaj Spencer MD Primary Care Provider [phone] Allergies No known active allergies Medications losartan (COZAAR) 100 mg tablet Take 1 Tablet by mouth daily. Active traMADoL (ULTRAM) 50 mg tabletIndicati ons:Malignant neoplasm of lung, unspecified laterality, unspecified part of lung (CMS/HCC) Take 1 Tablet (50 mg) by mouth every 8 hours as needed for Pain. 60 Tablet Active dexAMETHasone (DECADRON) 4 mg tablet Take 1 Tablet (4 mg) by mouth 2 times daily. Take with food. 60 Tablet 2 Active Additional Information Patient taking differently: 6 mgOral TWO TIMES DAILY, Take with food., Reported on 10/20/2024 lidocaine-pril ocaine (EMLA) 2.5-2.5 % CreamIndicatio ns:Malignant neoplasm of lung, unspecified laterality, unspecified part of lung (CMS/HCC) Apply to affected area see administration instructions. 30 Gram 1 024 Active ondansetron (ZOFRAN ODT) 8 mg Tablet, Rapid DissolveIndica tions:Malignan t neoplasm of lung, unspecified laterality, unspecified part of lung (CMS/HCC) Dissolve 1 tablet on top of tongue then swallow with saliva every 8 hours as needed for nausea or vomiting 30 Tablet 1 024 Active Additional Information Patient taking differently: 4 mg Oral EVERY 6 HOURS PRN, Nausea, Dissolve 1 tablet on top of tongue then swallow with saliva every 8 hours as needed for nausea or vomiting, Reported on 10/20/2024 methylPREDNISo lone (MEDROL DOSPACK) 4 mg Tablets, Dose Pack Use as directed 21 Tablet Active folic acid (FOLVITE) 1 mg tabletIndicati ons:Malignant neoplasm of lung, unspecified laterality, unspecified part of lung (CMS/HCC) Take 1 tablet by mouth once daily 90 Tablet 1 024 Active acetaminophen (TYLENOL) 325 mg tablet Take 650 mg by mouth every 4 hours as needed for Pain. Active polyethylene glycol (MIRALAX) 17 gram Powder in Packet Take 17 Grams by mouth 1 time daily as needed for Constipation. Active potassium CHLORIDE (K-DUR,KLOR-CO N M20) 20 mEq Extended Release tablet Take 1 tablet by mouth twice daily 60 Tablet Active lansoprazole (Prevacid) 30 mg Capsule, Delayed Release(E.C.) Take 1 Capsule (30 mg) by mouth daily. 30 Capsule 6 Active lansoprazole (Prevacid) 30 mg Capsule, Delayed Release(E.C.) Take 1 Capsule (30 mg) by mouth daily. 30 Capsule 6 024 2024 Discontinued(R eorder) potassium chloride (KLOR-CON M20) 20 mEq Extended Release tablet Take 1 Tablet (20 mEq) by mouth 2 times daily. 60 Tablet 1 025 2024 Discontinued Active Problems No known active problems Encounters Date Type Department Care Team Description 12/14/2024 Orders Only [facility] [place] [address] [place] [address] Abdirashid Acosta MD Malignant neoplasm of lung, unspecified laterality, unspecified part of lung (CMS/HCC) 12/11/2024 Orders Only [facility] [place] [address] [place] [address] Abdirashid Acosta MD 12/09/2024 Orders Only [facility] [place] [address] [place] [address] Abdirashid Acosta MD 12/08/2024 8:30 AM CDT Office Visit [facility] [place] [address] Abdirashid Acosta MD Malignant neoplasm of lung, unspecified laterality, unspecified part of lung (CMS/HCC) (Primary Dx) 12/07/2024 Orders Only [facility] [place] Kareem [address] Abdirashid Acosta MD Need for hepatitis B screening test (Primary Dx) 11/30/2024 Orders Only [facility] [place] [address]ry [address] Abdirashid Acosta MD Malignant neoplasm of lung, unspecified laterality, unspecified part of lung (CMS/HCC) 11/27/2024 Refill [facility] [place] [address] [place] [id number] Abdirashid Acosta MD 11/18/2024 Orders Only [facility] [place] [address] Abdirashid Acosta MD 11/16/2024 Orders Only [facility] [place] [address] Abdirashid Acosta MD Malignant neoplasm of lung, unspecified laterality, unspecified part of lung (CMS/HCC) 11/11/2024 External Device Data STL ABSTRACTION Provider, Abstract 11/04/2024 Orders Only [facility] [place] [address]em [address] Abdirashid Acosta MD 11/02/2024 Orders Only [facility] [place] [address] [place] [id number] Abdirashid Acosta MD Malignant neoplasm of lung, unspecified laterality, unspecified part of lung (CMS/HCC) 10/31/2024 External Device Data STL ABSTRACTION Provider, Abstract 10/30/2024 External Device Data STL ABSTRACTION Provider, Abstract 10/28/2024 Telephone [facility] [address] [place] [address] Abdirashid Acosta MD Lab Results 10/28/2024 Orders Only [facility] [address] [place] [address] Abdirashid Acosta MD 10/27/2024 External Device Data STL ABSTRACTION Provider, Abstract 10/27/2024 Orders Only [facility] [address] [place] [address] Abdirashid Acosta MD 10/27/2024 Telephone [facility] [address] Abdirashid Acosta MD [employer] 10/20/2024 1:15 PM QUAIL FARMER Office Visit [place] [address] Abdirashid Acosta MD Malignant neoplasm of lung, unspecified laterality, unspecified part of lung (CMS/HCC) (Primary Dx); Anemia due to chemotherapy 10/19/2024 Orders Only [facility] H[facility] [place] [address] Abdirashid Acosta MD Malignant neoplasm of lung, unspecified laterality, unspecified part of lung (CMS/HCC) 10/16/2024 Telephone [facility] [address] Abdirashid Acosta MD Patient Update 10/14/2024 External Device Data STL ABSTRACTION Provider, Abstract 10/13/2024 External Device Data STL ABSTRACTION Provider, Abstract 10/12/2024 Telephone [facility] [place] [address] [place] [id number] Abdirashid Acosta MD Diarrhea 10/05/2024 Orders Only [facility] [place] [address] [place] [id number] Abdirashid Acosta MD Malignant neoplasm of lung, unspecified laterality, unspecified part of lung (CMS/HCC) 10/01/2024 Orders Only [facility] [place] [address] [place] [id number] Abdirashid Acosta MD 10/01/2024 Telephone [facility] [place] [address] [place] [id number] Abdirashid Acosta MD Lab results 10/01/2024 Telephone [facility] [place] [address] [place] [address] Abdirashid Acosta MD Diarrhea from Last 3 Months Family History Medical [...] Sign Reading Time Taken Comments Blood Pressure 131/79 12/08/2024 8:38 AM CDT Pulse 69 12/08/2024 8:38 AM CDT Temperature 36 C (96.8 F) 12/08/2024 8:38 AM CDT Respiratory Rate 15 12/08/2024 8:38 AM CDT Oxygen Saturation 98% 12/08/2024 8:38 AM CDT Inhaled Oxygen Concentration - - Weight 66 kg (145 lb 6.4 oz) 12/08/2024 8:38 AM CDT Height 154.9 cm (5' 1 ) 01/09/2024 11:30 AM CDT Body Mass Index 27.47 01/09/2024 11:30 AM CDT Plan of Treatment Upcoming Encounters Date Type Department Care Team (Late st Contact Info) Description 12/29/2024 10:15 AM CDT Office Visit [facility] [place] [address] [facility] [address] [place] [address] Abdirashid Acosta MD [address] [facility] [address] [place] [address] Health Maintenance Due Date Last Done Comments Pre-Diabetes and Diabetes Screening 1958 DTAP/TDAP/TD VACCINES (1 - Tdap) 1977 PNEUMOCOCCAL VACCINE 50+ YEA RS (1 of 2 - PCV) 1977 ZOSTER VACCINE (1 of 2) 1977 BREAST CANCER SCREENING 1998 FIT-DNA Q 3 years 2003 FIT/FOBT Q 1 year 2003 Flex Sig/CT Colonography Q 5 years 2003 RSV VACCINE (60+ or ) (1 - Risk 60-74 years 1-dose series) 2018 OSTEOPOROSIS SCREENING 2023 INFLUENZA VACCINE (#1) 2024 COLORECTAL SCREENING 12/07/2034 12/07/2024, 12/08/19 Colorectal Cancer Screening 12/07/2034 Procedures Procedure Name Priority Date/Time Associated Diagnosis Comments QUANTIFERON TB CONFIRMATION Routine 11/24 12:10 PM CDT COMPREHENSIVE METABOLIC PANEL Routine 12/08/2024 7:53 AM CDT COMPREHENSIVE METABOLIC PANEL Routine 11/17/2024 2:11 PM CDT COMPREHENSIVE METABOLIC PANEL Routine 11/03/2024 9:38 AM CDT CBC WITH AUTODIFFERENTIAL Routine 2024 4:16 PM QUAIL FARMER BASIC METABOLIC PANEL Routine 10/27/2024 9:30 AM QUAIL FARMER CBC WITH DIFFERENTIAL Routine 10/20/2024 4:29 PM QUAIL FARMER BASIC METABOLIC PANEL Routine 10/01/2024 10:18 AM QUAIL FARMER from Last 3 Months Results * QUANTIFERON TB CONFIRMATION (12/08/2024 12:10 PM CDT) Blood us Abdirashid Acosta MD CHEMISTRY ORDERABLES Final Resu lt * COMPREHENSIVE METABOLIC PANEL (12/08/2024 7:53 AM CDT) Only the most recent of3 resultswithin the time period is included. Blood us Abdirashid Acosta MD CHEMISTRY ORDERABLES Final Resu lt * CBC WITH AUTODIFFERENTIAL (10/27/2024 4:16 PM QUAIL FARMER) Blood us Abdirashid Acosta MD HEMATOLOGY ORDERABLES Final Res ult * BASIC METABOLIC PANEL (10/27/2024 9:30 AM QUAIL FARMER) Only the most recent of2 resultswithin the time period is included. Blood us Abdirashid Acosta MD CHEMISTRY ORDERABLES Final Resu lt * CBC WITH DIFFERENTIAL (10/20/2024 4:29 PM QUAIL FARMER) Blood us Abdirashid Acosta MD HEMATOLOGY ORDERABLES Final Res ult from Last 3 Months Insurance [facility] [id number] [facility] [id number] Advance Directives For more information, please contact: [phone] Documents on File Type Date Recorded Patient Camera Control Operator Expl anation Advance Directive Living Will 01/09/2024 12:02 PM Advance Directive POA 01/09/2024 12:02 PM Care Teams Marklogic Developer Relationship Specialty Start Date End Date Iraj Spencer MD [facility] [place] [id number] PCP - General Family Practice 12/12/23
== END 2024-12-22 11:10 | disposition home or self-care (01) ==
LOC: ANHIMG 11:13
PROVIDERS: PCP Family Medicine; Visit Provider Internal Medicine Hematology & Oncology
DX: C34.90 Malignant neoplasm of unspecified part of unspecified bronchus or lung (principal); R91.8 Other nonspecific abnormal finding of lung field
CPT/HCPCS: 71260; 74177; Q9967

== ENCOUNTER 2024-12-29 10:46 | Inpatient (IN) | payer MEDICARE, SELFPAY ==
[2024-12-29] VITALS (18 sets, daily range): BP systolic 68–109; BP diastolic 49–78; PULSE 69–95; RESP 12–26; TEMP 36.3–37.2; O2SAT 97–100; BMI 26.0
--- NOTE | ~2024-12-29 | US_ITS ---
EXAM: RENAL ULTRASOUND HISTORY: SUDHA/ARF COMPARISON: Reference is made to a CT examination of the abdomen and pelvis dated 12/29/2024 FINDINGS: RIGHT KIDNEY: 12.1 x 5.3 x 5.5 cm. The parenchyma of the right kidney is unremarkable in echogenicity. No hydronephrosis or bulky renal calculi. LEFT KIDNEY: 10.4 x 6.0 x 4.6 cm No hydronephrosis or renal calculi. The parenchyma of the left kidney is unremarkable in echogenicity. BLADDER: Decompressed, limiting its evaluation. IMPRESSION: No hydronephrosis or renal calculi. The bladder is decompressed, limiting its evaluation Reviewed, dictated and finalized at location A.
--- NOTE | ~2024-12-29 | CT_ITS ---
CT abdomen pelvis wo con Ordering provider: Jory Barcenas III, DO History: 64 years Female with . diarrhea . Comparison: None. Technique: CT abdomen and pelvis with IV and without oral contrast. Automated exposure control and it erative reconstruction technique were employed. The dose-length product was 295.76 mGy-cm. Findings: VISUALIZED LOWER CHEST: Subsegmental atelectasis in the middle lobe. Trace of pericardial effusion. O therwise, normal UPPER ABDOMINAL ORGANS: Liver: Normal. Gallbladder: Status post cholecystectomy. Spleen: Normal. Stomach/duodenum: Normal. Pancreas: Normal. Adrenals: Normal. Kidneys: Normal. PELVIC ORGANS: The bladder is underfilled. BOWEL AND MESENTERY: Colon: No evidence of diverticulitis. Minimal thickening of the wall of the sigmoid colon which may i ndicate colitis. Appendix is not demonstrated. Small Bowel: Normal. No obstruction. Peritoneum/mesentery: No free air or free fluid. No mesenteric lymphadenopathy. RETROPERITONEUM: Mild atheromatous disease of the abdominal aorta. No retroperitoneal lymphadenopat hy. MUSCULOSKELETAL: Superficial soft tissues: The superficial soft tissues are normal. Bones: Age appropriate degenerative changes of the spine. IMPRESSION: 1. Minimal pericardial effusion. 2. Minimal thickening of the sigmoid colon wall which may indicate colitis. 3. No evidence of appendicitis, diverticulitis or intestinal obstruction Reviewed, dictated and finalized at location A.
--- NOTE | 2024-12-29 11:37 | ED_ITS ---
HPI - Nausea/Vomiting/Diarrhea General Chief complaint: Recheck/Abnormal Lab/Rx Stated complaint: sent by PCP for abnormal labs Time Seen by Provider: 12/29/24 11:29 History of Present Illness HPI Narrative: Pt sent from doctor's office for abnormal labs (looks like BUN cr and sodium). Pt has been having diarrhea for weeks. Migdalia says she had giardia and was treated but still having diarrhea and not drinking enough fluids. Pt is not vomiting. Pt denies abdominal pain. Related Data Home Medications Medication Instructions Recorded Confirmed Last Taken Type dexamethasone 4 mg tablet 4 mg PO BID 01/15/24 12/29/24 12/29/24 History folic acid 1 mg tablet 1 mg PO DAILY 01/15/24 12/29/24 12/29/24 History ondansetron 8 mg disintegrating 8 mg PO Q8H 01/15/24 12/29/24 Unknown History tablet tramadol 50 mg tablet 50 mg PO DAILY 03/03/24 12/29/24 12/29/24 History calcium 500 mg tablet 500 mg PO BID 04/08/24 12/29/24 12/29/24 History B12 100 mcg PO DAILY 11/12/24 12/29/24 12/29/24 History Lidocaine-Prilocaine 1 dose topical .[id number] 11/12/24 12/29/24 Unknown History ferrous sulfate 325 mg (65 mg 325 mg PO DAILY 11/12/24 12/29/24 12/29/24 History iron) tablet (iron) pantoprazole 40 mg tablet,delayed 40 mg PO BID 11/12/24 12/29/24 12/29/24 History release potassium chloride 20 mEq/15 mL 20 meq PO BID 11/12/24 12/29/24 12/29/24 History oral liquid Allergies Allergy/AdvReac Type Severity Reaction Status Date / Time No Known Allergies Allergy Verified 12/29/24 16:17 Review of Systems 2 Review of Systems: All systems reviewed & are unremarkable except as noted in HPI and below PMFSH Past Medical History Medical History (Updated 12/29/24 @ 12:53 by Jory Barcenas III, DO) Benign hypertension Metastasis to bone Adenocarcinoma of left lung, stage 4 Secondary malignant neoplasm of brain Gallstone Asthma Surgical History Surgical History H/O hysterectomy for benign disease Family History Family History Father Alcoholism Mother Cirrhosis Sibling Cancer Diabetes mellitus Depression Heart disease Social History Social History Social History: caffeine- coffee 10 tea 1/2 gallon soda 1 can Smoking packs per day: 2 Smoking cigarettes per day: 40.0 Years smoked: 48 Smoking pack-years: 96.00 Smoking status: Former smoker Tobacco type: cigarettes Second hand tobacco smoke exposure: No Alcohol intake: never Substance use: current Substance use type: marijuana Last use: 12/25/24 Do You Feel Safe in your Home?: Yes Lack of Transportation: No Lack of Food: Never True Current Housing: I Have Housing Concerned About Future Housing: No Difficulty Paying Gas/Electric Bills: No Difficulty Paying for Meds: No Currently Unemployed: No Education: High School Diploma/GED Difficulty w/ Childcare or Family Care: No Living arrangements: with family Occupation/Education: retired Gender identity (if verbalized by the patient): Female Sexual Orientation (if Verbalized by the Patient): Straight or Heterosexual Spiritual care concerns: No Exam 2 Const: General: healthy appearing and no acute distress Nutritional Appearance: well nourished Orientation/consciousness: patient oriented x3 Limitations: no limitations HENMT: Mouth: Yes dry mucous membranes Resp: Effort & Inspection: normal respiratory effort Auscultation: clear to auscultation bilaterally Cardio: Rate: regular rate Rhythm: regular rhythm GI: GI Palp: Yes Soft to palpation and No Tenderness to palpation present (GI) Auscultation: normal bowel sounds Skin: General skin exam: normal color Rashes: no rashes Wounds: no wounds Neuro: General: patient oriented x3, moves all extremities and no meningeal signs Cranial nerves: Yes Nystagmus not present Speech: normal speech Extrem: General: normal to inspection and no clubbing, cyanosis or edema Psych: Mental Status: mental status grossly normal Affect: normal affect Attitude: cooperative Course Vital Signs Vital signs: Vital Signs Temperature 97.4 F L 12/29/24 11:25 Pulse Rate 89 12/29/24 11:25 Respiratory Rate 16 12/29/24 11:25 Blood Pressure 74/52 L 12/29/24 11:25 Pulse Oximetry 99 12/29/24 11:25 Temperature 97.4 F L 12/29/24 11:25 Pulse Rate 79 12/29/24 18:00 Respiratory Rate 20 12/29/24 15:43 Blood Pressure 90/52 L 12/29/24 15:43 Pulse Oximetry 98 12/29/24 15:43 Oxygen Delivery Room Air 12/29/24 16:05 MDM - Nausea/Vomiting/Diarrhea MDM Narrative Medical decision making narrative: Pt sent here for abnormal labs. Pt hypotensive and appears dry. outpatient labs significan for elevated BUN and cr and sodium of 129. Will give small fluid bolus of 500 ml to address pressure and then fluids at slower rate. will repeat labs to verify. bun and cr still high and sodium low. SBP 70's. Discussed with Nehal Joshua and would like ICU consult. Dr Faulkner said to give 2 L IVF and get sepsis labs and CT abd/pelvis and call back after fluids. ct shows some colitis, ua pos wbc no bact. SBP 89 after fuids. Discussed with Dr Faulkner will accept to ICU asked to add cefipime and flagyl. Nehal Estes aware. Lab Data 12/29/24 11:47 12/29/24 11:47 Labs: Lab Results 12/29/24 12/29/24 12/29/24 Range/Units 11:47 13:01 14:27 WBC 7.6 (4.5-10.0) K/mm3 RBC 3.52 L (4.2-5.4) M/mm3 Hgb 10.8 L (12.0-15.0) g/dL Hct 32.9 L (37.0-47.0) % MCV 93.5 (80-100) fl MCH 30.7 (26-34) pg MCHC 32.8 (32-36) g/dl RDW 14.6 H (11.5-14.5) % Plt Count 657 H (150-375) k/mm3 MPV 9.2 (7.4-10.4) fl Immature Gran % (Auto) 2.6 H (0-0.5) % Neut % (Auto) 66.1 (45.5-73.1) % Lymph % (Auto) 13.1 L (18.3-44.2) % [place] % (Auto) 16.0 H (2.6-8.5) % Eos % (Auto) 1.0 (0-4.4) % Baso % (Auto) 1.2 (0.2-1.2) % Lymph # (Auto) 1.00 (0.9-3.2) K/mm3 [place] # (Auto) 1.2 H (0.1-0.6) K/mm3 Eos # (Auto) 0.1 (0-0.3) K/mm3 Baso # (Auto) 0.1 (0.0-0.1) K/mm3 Abs Immat Gran (auto) 0.20 H (0.00-0.031) K/mm3 Absolute Neuts (auto) 5.0 (1.3-6.7) K/mm3 Absolute Nucleated RBC 0.000 (0.0-0.012) K/mm3 Nucleated RBC % 0.0 (0.0-0.2) % Sodium 128 L (137-145) mmol/L Potassium 3.8 (3.4-5.0) mmol/L Chloride 98 (98-107) mmol/L Carbon Dioxide 12 L (22-30) mmol/L Anion Gap 18 H (4-12) mmol/L BUN 37 H (7-17) mg/dL Creatinine 4.45 H (0.7-1.0) mg/dL Estim Creat Clear Calc 9 ml/min Estimated GFR 10 L (59 - ) Glucose 135 H (65-110) mg/dL Lactic Acid 1.1 (0.7-2.0) mmol/L Calcium 8.8 (8.4-10.2) mg/dL Total Bilirubin 0.6 (0.2-1.3) mg/dL AST 33 (14-36) U/L ALT 21 (6-35) U/L Alkaline Phosphatase 101 (38-126) U/L Total Protein 8.0 (6.3-8.2) g/dL Albumin 4.4 (3.5-5.1) g/dL Procalcitonin 0.6 ng/mL Urine Color Dark yellow (Yellow) Urine Appearance Cloudy H (Clear) Urine pH 5.0 (5.0-9.0) Ur Specific [place] 1.017 (1.001-1.035) Urine Protein 2+ H (Negative) mg/dL Urine Glucose (UA) Negative (Negative) mg/dL Urine Ketones Trace H (Negative) mg/dL Ur Blood (Man) Non-hemolyzed trace H (Negative) Urine Nitrate Negative (Negative) Urine Bilirubin Negative (Negative) Urine Urobilinogen 0.2 (<2.0) mg/dL Add Ur Microanalysis Reviewed Leukocyte Esterase Rfl Trace H (Negative) LORY/UL Urine RBC 0-2 (0-2) /hpf Urine WBC 51-100 H (0-3) /hpf Ur Squamous Epith Cells Moderate (Few) /hpf Urine Bacteria None seen /hpf Urine Casts >20 Hyaline Casts Present (None) /lpf Urine Mucus Present /lpf Critical Care Time Critical Care Time Critical Care Time: Yes Total Critical Care Time: 30 Discharge Plan Discharge Clinical Impression: Acute renal failure (ARF), Acute dehydration, Acute hyponatremia, Acute hypotension Patient Disposition: Still a Patient Condition: Improved
--- OUTSIDE RECORDS SUMMARY | 2024-12-29 11:38 | XMS_ITS | Encounter Summary ---
Author Organization [facility] Address [address] [place] [address] Care Team Providers Care Developer Automatic Name Role Phone Iraj Spencer MD Primary Care Provider [phone] Encounter Details Date Type Department Care Team (Late st Contact Info) Description 12/28/2024 Orders Only [facility] Oncology and Hematology - [place] [address] [facility] [address] [place] [address] Abdirashid Acosta MD [address] [facility] [address] [place] [address] Malignant neoplasm of lung, unspecified laterality, unspecified part of lung (CMS/HCC) Social History Tobacco Use Types Packs/Day Years [...] as of this encounter Plan of Treatment Not on file documented as of this encounter Visit Diagnoses Diagnosis Malignant neoplasm of lung, unspecified laterality, unspecified part of lung (CMS/HCC) documented in this encounter Care Teams Developer Automatic Relationship Specialty Start Date End Date Iraj Spencer MD [address] [facility] [place] [address] PCP - General Family Practice 12/12/23 documented as of this encounter
--- OUTSIDE RECORDS SUMMARY | 2024-12-29 11:38 | XMS_ITS | Encounter Summary ---
Author Organization [facility] Address [address] [place] [address] Care Team Providers Care Head Of Biology Name Role Phone Iraj Spencer MD Primary Care Provider [phone] Reason for Visit * Reason Comments Chemotherapy Follow Up Encounter Details Date Type Department Care Team (Late st Contact Info) Description 12/29/2024 10:15 AM CDT Office Visit [facility] Oncology and Hematology - [place] [address] [facility] [address] [place] [address] Abdirashid Acosta MD [address] [facility] [address] [place] [address] Malignant neoplasm of lung, unspecified laterality, unspecified part of lung (CMS/HCC) (Primary Dx) Social History Tobacco Use Types Packs/Day Years [...] on file documented as of this encounter Last Filed Vital Signs Vital Sign Reading Time Taken Comments Blood Pressure 82/51 12/29/2024 10:12 AM CDT Pulse 88 12/29/2024 10:10 AM CDT Temperature 35.9 C (96.6 F) 12/29/2024 10:10 AM CDT Respiratory Rate 15 12/29/2024 10:1 0 AM CDT Oxygen Saturation 96% 12/29/2024 10: 10 AM CDT Inhaled Oxygen Concentration - - Weight 61.1 kg (134 lb 12.8 oz) 025 10:10 AM CDT Height - - Body Mass Index 25.47 01/09/2024 11:30 AM CDT documented in this encounter Progress Notes * Abdirashid Acosta MD - 12/29/2024 11:24 AM CDT HEMATOLOGY / ONCOLOGY PROGRESS NOTE Patient Identification: Name: Regi Snyder Age: 64 y.o. Sex: female : 1960 DIAGNOSIS Metastatic non-small cell lung cancer adenocarcinoma and histology status post right breast mass biopsy done on December 10, 2023. CURRENT TREATMENT Maintenance Keytruda and Alimta started April 08, 2024 TREATMENT HISTORY Palliative chemotherapy with carboplatin Alimta and Keytruda cycle 1 started January 01, 2024. Patient finished cycle 4 of chemotherapy on March 04, 2024. SUBJECTIVE Patient came to the office for follow-up visit and continuation of chemotherapy. She has been having some diarrhea and feeling quite tired and fatigue. She is complaining of generalized musculoskeletal discomfort. No other new complaints. Review of system Constitutional: Patient did not mention fevers, sweats, complain of tiredness and fatigue, weight and appetite stable HEENT: Patient did not mention sinus congestion, hearing or vision problems Respiratory: Patient did not mention cough, dyspnea, wheeze Cardiovascular: Patient did not mention chest pain, exertional chest pressure/discomfort, nausea, syncope, shortness of breath GI: Complain of diarrhea, denies any nausea vomiting : Patient did not mention dysuria, frequency, incontinence, urgency Integumentary system: no lymphadenopathy, sweats, flushing Musculoskeletal: Patient not mention: myalgia, arthralgia, plaint of generalized musculoskeletal discomfort Neurological: Patient did not mention blurry or disturbed vision, numbness/weakness, complain of occasional lightheadedness and dizziness Skin: No lumps, rash has now resolved 12 point review of system was reviewed Objective: Vital signs in last 24 hours: As per nursing note Exam: General appearance: alert, cooperative, no distress, appears stated age Head: normocephalic, without obvious abnormality, atraumatic Eyes: conjunctivae/corneas clear, EOM's intact Ears: normal external ear canals AU Nose: Nares normal. Septum midline. Mucosa normal. No drainage or sinus tenderness Throat: Lips, mucosa, and tongue normal. Teeth and gums normal Neck: supple, symmetrical, trachea midline. Lungs: clear to auscultation bilaterally Heart: regular rate and rhythm, S1, S2 normal, no murmur, click, rub or gallop Abdomen: soft, non-tender. Bowel sounds normal. No masses, No organomegaly Extremities: extremities normal, atraumatic, no cyanosis or edema Skin: Skin color, texture, turgor normal. Rash in mid chest noted Lymph nodes: No lymphadenopathy Neuro: No obvious focal deficit Exam as above PATH LABS Labs from December 31 showed WBC 18.2 hemoglobin 13.8 platelet 383,000 creatinine 0.5 Labs from January 21 showed WBC 14.7 hemoglobin 12 platelets 367,000 creatinine 0.6 Labs from February 11 showed WBC 7.6 hemoglobin 10.6 platelet 3 77,000 creatinine 0.6 Labs from March 04 showed creatinine 0.6 hemoglobin 10.1 WBC 11.8 platelet 206,000 Labs from March 25 showed WBC 7.5 hemoglobin 10.2 platelet 474,000 creatinine 0.7 Labs from May 06 showed WBC 4.4 hemoglobin 10.2 platelet 246,000 creatinine 0.9 Labs from July 22 showed WBC 9.8 hemoglobin 9.9 platelet 436,000 Labs from September 21 showed creatinine 1.0 WBC 6.6 hemoglobin 10.1 platelet 380,000 Labs from October 20 showed creatinine 1.0 WBC 19.1 hemoglobin 9 platelet 342,000 Labs from December 08 showed WBC 5.1 hemoglobin 9.9 platelets 3 72,000 creatinine 1.1 Labs from December 29 showed creatinine 5.1 GFR 8 sodium 129 platelet 660,000 hemoglobin 11.2 WBC 8.7 Assessment: Plan: There are no active problems to display for this patient. Metastatic non-small cell lung cancer adenocarcinoma and histology status post right breast mass biopsy done on December 10, 2023. PET scan done on December 25 showed left upper lobe FDG avid mass with multiple masses in the bilateral breast, liver, spleen, bilateral adrenal glands and couple of bone lesions consistent with metastaticdisease. Brain MRI also showed 1 cm metastasis in the superior left frontal lobe. Patient completed cycle 4/4 of chemotherapy with carboplatin Alimta and Keytruda on March 04, 2024. CT scan chest abdomen pelvis done on December 22 showed stable density in the left upper lobe of the lung with interval decrease in size of liver lesions and stable T1 sclerotic lesions. I will hold chemotherapy with Keytruda Alimta for maintenance today due to renal insufficiency and hypotension and diarrhea. Diarrhea and hypotension with renal insufficiency. I will send her to the ER for admission. Anemia. Patient will continue Procrit 30,000 units on every 3-week basis along with iron and vitamin B12. Hypertension. Patient is currently hypotensive likely secondary to diarrhea. Will refer her to the emergency department. Bone metastasis. Patient will continue monthly Zometa. Brain metastasis status post CyberKnife treatment in December 2023. Stable. Follow-up in 3 weeks with resumption of chemotherapy. 12/29/2024 Abdirashid Acosta MD documented in this encounter Plan of Treatment Scheduled Orders Name Type Priority Associated Diagnoses Orde r Schedule CBC WITH DIFFERENTIAL Lab Stat Malignant neoplasm of lung, unspecified laterality, unspecified part of lung (CMS/HCC) Expected: 02/05/2025, Expires: 12/29/2025 BASIC METABOLIC PANEL Lab Stat Malignant neoplasm of lung, unspecified laterality, unspecified part of lung (CMS/HCC) Expected: 02/05/2025, Expires: 12/29/2025 documented as of this encounter Visit Diagnoses Diagnosis Malignant neoplasm of lung, unspecified laterality, unspecified part of lung (CMS/HCC)- Primary documented in this encounter Care Teams Head Of Biology Relationship Specialty Start Date End Date Iraj Spencer MD [facility] [facility] [place] [address] PCP - General Family Practice 12/12/23 documented as of this encounter
--- OUTSIDE RECORDS SUMMARY | 2024-12-29 11:38 | XMS_ITS | Encounter Summary ---
Author Organization [facility] Address [address] [place] [address] Care Team Providers Care Concrete Mixer Loader Truck Mounted Name Role Phone Iraj Spencer MD Primary Care Provider [phone] Encounter Details Date Type Department Care Team (Late st Contact Info) Description 12/23/2024 Orders Only [facility] Oncology and Hematology - [place] [address] [facility] [address] [place] [address] Abdirashid Acosta MD [address] [facility] [address] [place] [address] Social History Tobacco Use Types Packs/Day [...] on file documented as of this encounter Procedures Procedure Name Priority Date/Time Associated Diagnosis Comments CT CHEST ABDOMEN PELVIS W CONT Routine 12/22/2024 10:26 AM CDT documented in this encounter Results * CT CHEST ABDOMEN PELVIS W CONT (12/22/2024 10:26 AM CDT) Anatomical Region Laterality Modality Chest Computed Tomogra phy us Abdirashid Acosta MD CT ORDERABLES Final Result documented in this encounter Visit Diagnoses Not on filedocumented in this encounter Care Teams Concrete Mixer Loader Truck Mounted Relationship Specialty Start Date End Date Iraj Spencer MD [address] [facility] [place] [address] PCP - General Family Practice 12/12/23 documented as of this encounter
--- OUTSIDE RECORDS SUMMARY | 2024-12-29 11:38 | XMS_ITS | Encounter Summary ---
Author Organization [facility] Address [address] [place] [address] Care Team Providers Care Composing Room Machinist Apprentice Name Role Phone Iraj Spencer MD Primary Care Provider [phone] Reason for Visit * Reason Comments Med Refill Encounter Details Date Type Department Care Team (Late st Contact Info) Description 12/29/2024 Refill [facility] Oncology and Hematology - [place] [address] [facility] [address] [place] [address] Abdirashid Acosta MD [address] [facility] [address] [place] [address] Social History Tobacco Use Types [...] on filedocumented in this encounter Care Teams Composing Room Machinist Apprentice Relationship Specialty Start Date End Date Iraj Specner MD [address] [place] [place] [address] PCP - General Family Practice 12/12/23 documented as of this encounter
--- OUTSIDE RECORDS SUMMARY | 2024-12-29 11:38 | XMS_ITS | Referral Summary ---
Author Organization [facility] Address [address] [place] [address] Care Team Providers Care Paper Cleaner Name Role Phone Amy Saldivar DO Primary Care Provider Encounters Date Type Department Care Team Description 5 9:43 AM CDT Anesthesia Event [facility] GI [facility] [address] [place] [phone] Sylvia Alves MD 5 9:30 AM CDT - 5 10:00 AM CDT Surgery [facility] [address] [place] [address] Dawood Dueñas MD COLONOSCOPY 5 8:35 AM CDT - 5 10:57 AM CDT Hospital Encounter [facility] GI Lab [address] [place] [address] Dawood Dueñas MD Discharge Disposition: Discharge to home or self care 5 9:30 AM CDT Office Visit [facility] Gastroenterology at [address] [place] [phone] Laurence Patrick NP Gastrointestinal hemorrhage, unspecified gastrointestinal hemorrhage type 5 Telephone [facility] Gastroenterology at [address] [place] [address] [phone] Enrike Camacho MD 5 5:25 PM COMPOSITION BOARD PRESS OPERATOR - 5 10:39 AM COMPOSITION BOARD PRESS OPERATOR Hospital Encounter [facility] [address] Med [address] [place] [address] Anthony Kang MD Brother, MD Jose Sandoval Manuel Emilio, MD Visconti, John L., Gastrointestinal hemorrhage, unspecified gastrointestinal hemorrhage type (Primary Dx); Drug and toxin-induced diarrhea; Chemotherapy-induced neutropenia; Hematemesis, unspecified whether nausea present Discharge Disposition: Discharge to home or self care 5 2:39 PM COMPOSITION BOARD PRESS OPERATOR Anesthesia Event [facility] GI Endo [address] [place] [address] Dario Soria MD 5 2:00 PM COMPOSITION BOARD PRESS OPERATOR - 5 2:40 PM [facility] GI Endo [address] [place] [address] Brain Rucker ra, MD ESOPHAGOGASTRODUODENOSCOPY BIOPSY 5 2:00 PM COMPOSITION BOARD PRESS OPERATOR - 5 2:30 PM [facility] GI Endo [address] [place] [address] Brain Rucker ra, MD Not Performed COLONOSCOPY [...] Former Cigarettes Tobacco Cessation:Counseling Given: Not Answered [facility] Utilities Answer Date Recorded In the past 12 months has [employer], gas, oil, or water [employer] threatened to shut off services in your [...] often do you attend chur ch or alevism services? Never 10/13/2024 Do you belong to any clubs o r organizations such as latter-day groups, unions, fraternal or athletic groups, or [...] any time in the past [address] [facility], were you homeless or living in a usp (including now)? No 10/13/2024 Personal Safety Answer Date Recorded Have you ever been in or are you currently in a harmful physical or emotional relationship or is someone making you feel afraid or unsafe? Denies 12/07/2024 Comments No Sex and Gender Information Value Date Recorded Sex Assigned at Not on file Legal Sex Female 12:32 PM COMPOSITION BOARD PRESS OPERATOR Gender Identity Not on file Sexual Orientation [...] on file Medical Devices Implanted Type Area Adolescent Coordinator Device Identifier Shelf Expiration Date Model / Serial / Lot Port Right: Chest Wall Procedures Procedure Name Priority Date/Time Associated Diagnosis Comments COLONOSCOPY 12/07/2024 9:45 AM CDT Gastrointestinal hemorrhage, unspecified gastrointestinal hemorrhage type COLONOSCOPY 12/07/2024 9:43 AM CDT ECG 12-LEAD Routine 12/07/2024 9:05 AM CDT EGFR Routine 10/18/2024 5:10 AM COMPOSITION BOARD PRESS OPERATOR DIFFERENTIAL AUTO Routine 10/18/2024 5:10 AM COMPOSITION BOARD PRESS OPERATOR COMPREHENSIVE METABOLIC PANEL Routine 5:10 AM COMPOSITION BOARD PRESS OPERATOR CBC WITH AUTO DIFFERENTIAL Routine 10/18 5:10 AM COMPOSITION BOARD PRESS OPERATOR SURGICAL PATHOLOGY Routine 10/17/2024 2:54 PM COMPOSITION BOARD PRESS OPERATOR Hematemesis, unspecified whether nausea present ESOPHAGOGASTRODUODENOSCOPY BIOPSY 10/17/2024 2:41 PM COMPOSITION BOARD PRESS OPERATOR Hematemesis, unspecified whether nausea present EGD 10/17/2024 2:38 PM COMPOSITION BOARD PRESS OPERATOR EGFR Routine 10/17/2024 4:31 AM COMPOSITION BOARD PRESS OPERATOR DIFFERENTIAL AUTO Routine 10/17/2024 4:31 AM COMPOSITION BOARD PRESS OPERATOR COMPREHENSIVE METABOLIC PANEL Routine 4:31 AM COMPOSITION BOARD PRESS OPERATOR CBC WITH AUTO DIFFERENTIAL Routine 10/17 4:31 AM COMPOSITION BOARD PRESS OPERATOR EGFR Routine 10/16/2024 4:02 AM COMPOSITION BOARD PRESS OPERATOR DIFFERENTIAL AUTO Routine 10/16/2024 4:02 AM COMPOSITION BOARD PRESS OPERATOR COMPREHENSIVE METABOLIC PANEL Routine 4:02 AM COMPOSITION BOARD PRESS OPERATOR CBC WITH AUTO DIFFERENTIAL Routine 10/16 4:02 AM COMPOSITION BOARD PRESS OPERATOR STOOL CULTURE Routine 10/15/2024 4:01 PM COMPOSITION BOARD PRESS OPERATOR HIV 1/2 ANTIBODY PLUS P24 ANTIGEN Routine 10/15/2024 8:38 AM COMPOSITION BOARD PRESS OPERATOR MAGNESIUM Routine 10/15/2024 4:36 AM COMPOSITION BOARD PRESS OPERATOR EGFR Routine 10/15/2024 4:36 AM COMPOSITION BOARD PRESS OPERATOR DIFFERENTIAL AUTO Routine 10/15/2024 4:36 AM COMPOSITION BOARD PRESS OPERATOR COMPREHENSIVE METABOLIC PANEL Routine 4:36 AM COMPOSITION BOARD PRESS OPERATOR CBC WITH AUTO DIFFERENTIAL Routine 10/15 4:36 AM COMPOSITION BOARD PRESS OPERATOR CBC WITHOUT DIFFERENTIAL STAT 025 9:36 AM COMPOSITION BOARD PRESS OPERATOR MICROBIOLOGY CALLBACK Routine 10/13/2024 12:31 PM COMPOSITION BOARD PRESS OPERATOR CRYPTOSPORIDIUM AND GIARDIA ANTIGEN ASSAY Routine 10/13/2024 12:31 PM COMPOSITION BOARD PRESS OPERATOR NOROVIRUS PCR Routine 10/13/2024 12:31 PM COMPOSITION BOARD PRESS OPERATOR STOOL CULTURE Routine 10/13/2024 12:31 PM COMPOSITION BOARD PRESS OPERATOR CRP (ACUTE PHASE) Add-On 10/13/2024 10:16 AM COMPOSITION BOARD PRESS OPERATOR ERYTHROCYTE SEDIMENTATION RATE Add-On 0 10/13/2024 10:16 AM COMPOSITION BOARD PRESS OPERATOR EGFR Routine 10/13/2024 4:49 AM COMPOSITION BOARD PRESS OPERATOR DIFFERENTIAL AUTO Routine 10/13/2024 4:49 AM COMPOSITION BOARD PRESS OPERATOR FERRITIN Routine 10/13/2024 4:49 AM COMPOSITION BOARD PRESS OPERATOR IRON PROFILE W/ IBC Routine 10/13/2024 4:49 AM COMPOSITION BOARD PRESS OPERATOR CBC WITH AUTO DIFFERENTIAL Routine 10/13 4:49 AM COMPOSITION BOARD PRESS OPERATOR BASIC METABOLIC PANEL Routine 10/13/2024 4:49 AM COMPOSITION BOARD PRESS OPERATOR PROTIME-INR Routine 10/12/2024 6:25 PM COMPOSITION BOARD PRESS OPERATOR HEMOGLOBIN AND HEMATOCRIT STAT 2024 5:42 PM COMPOSITION BOARD PRESS OPERATOR B ABO / RH CONFIRMATION TESTING STAT 10/12/2024 5:42 PM COMPOSITION BOARD PRESS OPERATOR CT CHEST PE ABDOMEN PELVIS W CONTRAST ED 10/12/2024 3:27 PM COMPOSITION BOARD PRESS OPERATOR URINALYSIS AND REFLEX TO MICROSCOPIC AND CULTURE STAT 10/12/2024 3:01 PM COMPOSITION BOARD PRESS OPERATOR MANUAL DIFFERENTIAL STAT 10/12/2024 10:11 AM COMPOSITION BOARD PRESS OPERATOR EGFR STAT 10/12/2024 10:11 AM COMPOSITION BOARD PRESS OPERATOR DIFFERENTIAL AUTO STAT 10/12/2024 10:11 AM COMPOSITION BOARD PRESS OPERATOR ANTIBODY SCREEN STAT 10/12/2024 10:11 AM COMPOSITION BOARD PRESS OPERATOR ABO/RH STAT 10/12/2024 10:11 AM COMPOSITION BOARD PRESS OPERATOR TYPE AND SCREEN STAT 10/12/2024 10:11 AM COMPOSITION BOARD PRESS OPERATOR COMPREHENSIVE METABOLIC PANEL STAT 10:11 AM COMPOSITION BOARD PRESS OPERATOR CBC WITH AUTO DIFFERENTIAL STAT 10/12 10:11 AM COMPOSITION BOARD PRESS OPERATOR from Last 3 Months Results * Colonoscopy (12/07/2024 9:43 AM CDT) Anatomical Region Laterality Modality Other Narrative Procedure Note Dawood Dueñas MD - 12/07/2024 9:43 AM CDT [facility] GI ENDOSCOPY Patient Name: Regi Snyder Procedure Date: 12/07/2024 9:43 AM Date of : 1960 Admit Type: Outpatient Age: 64 Gender: Female Attending MD: Dawood Dueñas M.D. Room: [facility] ENDOSCOPY ROOM 06 Note Status: Finalized Procedure: [...] On: 12/07/2024 9:43 AM Recognized by the [employer] for promoting quality in endoscopy Dawood Dueñas MD ENDOSCOPY PROCEDURES Cris l Result * ECG 12 lead (12/07/2024 9:05 AM CDT) Ventricular Rate EKG/Min 74 BPM [facility] Atrial Rate 74 BPM [facility] WI-Interval (MSEC) 138 ms [facility] QRS-Interval (MSEC) 72 ms [facility] QT-Interval (MSEC) 434 ms [facility] QTc 481 ms [facility] P [place] 60 degrees [facility] R [place] 25 degrees [facility] T [place] 55 degrees [facility] Diagnosis Normal sinus rhythm Nonspecific ST abnormality Abnormal ECG No previous ECGs available Confirmed by CONNOR MÉNDEZ M.D. ([id number]) on 12/08/2024 7:19:04 AM [facility] 12/07/2024 9:05 AM CDT 12/08/2024 7:19 AM CDT Sylvia Alves MD ECG ORDERABLES Final Result [facility] * eGFR (10/18/2024 5:10 AM COMPOSITION BOARD PRESS OPERATOR) eGFR 81 >=60 mL/min/1. 73 m2 Comment: [...] was last reviewed 2021. Testing performed by: [address] [address] Blood 10/18/2024 5:10 AM COMPOSITION BOARD PRESS OPERATOR 10/18/2024 5:30 AM COMPOSITION BOARD PRESS OPERATOR us Umair Garcia MD LAB BLOOD ORDERABLES Cris matias Result QASIM [address] [facility] [place] [facility] Department of Laboratories [place], [place] [id number] * (ABNORMAL) Differential, auto (10/18/2024 5:10 AM COMPOSITION BOARD PRESS OPERATOR) Pathologist [facility] Neutrophil abs 18.4(H) 1.5 - 6.5 K/cumm Comment:Testing performed by : [address] [address] Imm gran abs 0.4(H) 0.0 - 0.1 K/cumm QASIM TREVINO Comment:Testing performed by : [address] [address] Lymphocyte abs 1.5 0.8 - 3.3 K/cumm QASIM Comment:Testing performed by : [address] [address] Monocyte abs 1.8(H) 0.2 - 0.8 K/cumm [facility] Comment:Testing performed by : [address] [address] Eosinophil abs 0.2 0.0 - 0.5 K/cumm QASIM Comment:Testing performed by : [address] [address] Basophil abs 0.0 0.0 - 0.1 K/cumm [facility] Comment:Testing performed by : [address] [address] Neutrophil pct 82.6 % [facility] Comment: Interpretive Data Percent cell count reference ranges are not reported, since discordance with absolute values may lead to misinterpretation of CBC data. Current Interpretive Data was last revised on 2017. Testing performed by: [address] [address] Imm gran pct 1.7 % [facility] Comment: Interpretive Data Percent cell count reference ranges are not reported, since discordance with absolute values may lead to misinterpretation of CBC data. Current Interpretive Data was last revised on 2017. Testing performed by: [address] [address] Lymphocyte pct 6.7 % [facility] Comment: Interpretive Data Percent cell count reference ranges are not reported, since discordance with absolute values may lead to misinterpretation of CBC data. Current Interpretive Data was last revised on 2017. Testing performed by: [address] [address] Monocyte pct 8.0 % [facility] Comment: Interpretive Data Percent cell count reference ranges are not reported, since discordance with absolute values may lead to misinterpretation of CBC data. Current Interpretive Data was last revised on 2017. Testing performed by: [address] [address] Eosinophil pct 0.8 % [facility] Comment: Interpretive Data Percent cell count reference ranges are not reported, since discordance with absolute values may lead to misinterpretation of CBC data. Current Interpretive Data was last revised on 2017. Testing performed by: [address] [address] Basophil pct 0.2 % [facility] Comment: Interpretive Data Percent cell count reference ranges are not reported, since discordance with absolute values may lead to misinterpretation of CBC data. Current Interpretive Data was last revised on 2017. Testing performed by: [address] [address] Blood 10/18/2024 5:10 AM COMPOSITION BOARD PRESS OPERATOR 10/18/2024 5:30 AM COMPOSITION BOARD PRESS OPERATOR us Umair Garcia MD LAB BLOOD ORDERABLES Cris l Result QASIM [address] [facility] [place] [address] * (ABNORMAL) CBC with auto differential (10/18/2024 5:10 AM COMPOSITION BOARD PRESS OPERATOR) WBC 22.3(H) 3.8 - 9.9 K/cumm Comment:Testing performed by : [address] [address] Hgb 8.0(L) 11.9 - 15.5 g/dL Q[facility]IM Comment:Testing performed by : [address] [address] Hct 24.4(L) 35.6 - 45.5 % [facility] Comment:Testing performed by : [address] [address] Plt 229 150 - 400 K/cumm Q[facility]IM Comment:Testing performed by : [address] [address] MPV 10.4 9.1 - 12.3 fL [facility] Comment:Testing performed by : [address] [address] RBC 2.58(L) 3.90 - 5.20 M/cumm Q[facility]IM Comment:Testing performed by : [address] [address] MCV 94.6 81.3 - 96.4 fL [facility] Comment:Testing performed by : [address] [address] MCH 31.0 27.1 - 33.3 pg QASIM TREVINO Comment:Testing performed by : [address] [address] MCHC 32.8 32.3 - 35.7 g/dL [facility] TREVINO Comment:Testing performed by : [address] [address] RDW CV 13.2 11.1 - 14.9 % [facility] TREVINO Comment:Testing performed by : [address] [address] RDW SD 45.1 35.7 - 48.1 fL [facility] TREVINO Comment:Testing performed by : [address] [address] NRBC abs 0.00 0.00 - 0.01 K/cumm [facility] TREVINO Comment:Testing performed by : [address] [address] Blood 10/18/2024 5:10 AM COMPOSITION BOARD PRESS OPERATOR 10/18/2024 5:30 AM COMPOSITION BOARD PRESS OPERATOR us Umair Garcia MD LAB BLOOD ORDERABLES Cris matias Result Q[facility]IM [facility] Department [place] [address] * (ABNORMAL) Comprehensive metabolic panel (10/18/2024 5:10 AM COMPOSITION BOARD PRESS OPERATOR) Sodium 140 135 - 145 mmol/L Comment:Testing performed by : [address] [address] Potassium, pl 3.6 3.3 - 4.9 mmol/L [facility] TREVINO Comment:Testing performed by : [address] [address] Chloride 106 97 - 110 mmol/L [facility] TREVINO Comment:Testing performed by : [address] [address] CO2 26 22 - 32 mmol/L [facility] TREVINO Comment:Testing performed by : [address] [address] Anion gap 8 2 - 15 mmol/L [facility] Comment:Testing performed by : [address] [address] BUN 6 6 - 25 mg/dL [facility] Comment:Testing performed by : [address] [address] Creatinine 0.80 0.60 - 1.10 mg/dL [facility] Comment:Testing performed by : [address] [address] Glucose 122 70 - 199 mg/dL [facility] Comment: Interpretive Data Fasting glucose >/= [...] was last revised 2022. Testing performed by: [address] [address] Calcium 7.6(L) 8.5 - 10.3 mg/dL [facility] Comment:Testing performed by : [address] [address] Bilirubin, total <0.2 0.1 - 1.2 mg/dL [facility] Comment:Testing performed by : [address] [address] Protein, pl 5.4(L) 6.5 - 8.5 g/dL [facility] Comment:Testing performed by : [address] [address] Albumin 3.2(L) 3.5 - 5.0 g/dL [facility] Comment:Testing performed by : [address] [address] Alk phos 106 40 - 130 Units/L [facility] Comment:Testing performed by : [address] [address] ALT 10 7 - 45 Units/L [facility]IM TREVINO Comment:Testing performed by : [facility], [address] [place] [address]., [address] AST 15 10 - 45 Units/L QASIM Comment:Testing performed by : [facility], [address] [place] [address]., [address] Blood 10/18/2024 5:10 AM COMPOSITION BOARD PRESS OPERATOR 10/18/2024 5:30 AM COMPOSITION BOARD PRESS OPERATOR us Umair Garcia MD LAB BLOOD ORDERABLES Cris l Result QASIM [address] Department [place] [address] * Surgical pathology (10/17/2024 2:54 PM COMPOSITION BOARD PRESS OPERATOR) Tissue specimen (specimen) (Gastric/Stomach biopsy) 10/17/2024 2:54 PM COMPOSITION BOARD PRESS OPERATOR Narrative PATHOLOGY [facility] - 10/20/2024 3:35 PM COMPOSITION BOARD PRESS OPERATOR [facility] Department of Pathology [address] [place] [id number] Note to Patients: This report may contain [...] : 1960 (Age: 64) Gender: F Address: [address] [place] [address] Hospital #: [id number] Service: Medical Location: Patient Type: [facility] INPATIENT Taken: 10/17/2024 Received: 10/17/2024 Accessioned: [...] Entirely submitted in A1. Jar [facility]. [facility]10/19/2024 08:35 PRAVEEN Zuluaga PA([facility])CM Microscopic slide review and interpretation for this case was performed at [facility], Department of Surgical Pathology, [address] [facility], [place] [id number], [place] [address] CLIA # [id number] Brain Rucker MD LAB PATHOLOGY ORDER CARLOS Final Result PATHOLOGY [facility] * EGD (10/17/2024 2:38 PM COMPOSITION BOARD PRESS OPERATOR) Anatomical Region Laterality Modality Other Narrative [id number]|2024-12-29 11:38:00|2024-12-29 11:36:00|XMS_ITS|BKG DAEMON|External Medical Summaries|[id number]|" Continuity of Care Document (C-CDA R2.1) (Encounter date: 12/21/1999 02:45 PM) Created on: December 29, 2024 Regi Snyder : 1960 Sex: Female Author Organization [facility] [place] [address] [place] [address] Phone Care Team Providers Care Paper Cleaner Name Role Phone Unavailable Unavailable Unavailable Advance Directives Directive Yes / No Effective Date File Name No Information Encounters Encounter Description Practice Location Reason(s) For Visit Diagnoses Date Provider Providers Copied on Encounter [facility], [id number] [place] [address] [address], [place], [place], [id number], [place] tel:[phone] [address] [facility] No Information 7200 0 No Information Family History Family Member [...] (start - stop) Status Members No Information "
--- OUTSIDE RECORDS SUMMARY | 2024-12-29 11:38 | XMS_ITS | Clinical Summary ---
Author Organization [facility] Address [address] [place] [address] Care Team Providers Care Gamb Cutter Name Role Phone Amy Saldivar DO Primary Care Provider [phone] Allergies No known active allergies Medications dexAMETHasone [...] Team Description 9:43 AM CDT Anesthesia Event [facility] [address] [place] [id number] Sylvia Alves MD 5 9:30 AM CDT - 5 10:00 AM CDT Surgery [facility] [address] [place] [address] Dawood Dueñas MD COLONOSCOPY 5 8:35 AM CDT - 5 10:57 AM CDT Hospital Encounter [facility] [address] [place] [phone] Dawood Dueñas MD Discharge Disposition: Discharge to home or self care 5 9:30 AM CDT Office Visit [facility] Gastroenterology at [address] [place] [phone] Laurence Patrick NP Gastrointestinal hemorrhage, unspecified gastrointestinal hemorrhage type 5 Telephone [facility] Gastroenterology at [address] [place] [address] Enrike Camacho MD 5 2:39 PM ESCALATOR CONSTRUCTOR Anesthesia Event [facility] Endo [address] [place] [address] Dario Soria MD 5 2:00 PM ESCALATOR CONSTRUCTOR - 5 2:40 PM ESCALATOR CONSTRUCTOR Surgery [facility] GI Endo [address] [place] [address] Brain Rucker ra, MD ESOPHAGOGASTRODUODENOSCOPY BIOPSY 5 2:00 PM ESCALATOR CONSTRUCTOR - 5 2:30 PM ESCALATOR CONSTRUCTOR Surgery [facility] GI Endo [address] [place] [id number] Brain Rucker ra, MD Not Performed COLONOSCOPY 5 5:25 PM ESCALATOR CONSTRUCTOR - 5 10:39 AM ESCALATOR CONSTRUCTOR Hospital Encounter [facility] 4 Med Surg [address] [place] [address] Anthony Kang MD Brother, Michele, MD Lopez, [...] Former Cigarettes Tobacco Cessation:Counseling Given: Not Answered [facility] Utilities Answer Date Recorded In the past 12 months has [employer], gas, oil, or water Novel threatened to shut off services in your [...] often do you attend chur ch or muslim services? Never 10/13/2024 Do you belong to any clubs o r organizations such as alevism groups, unions, fraternal or athletic groups, or [...] any time in the past 12 [facility], were you homeless or living [...] on file Legal Sex Female 12:32 PM ESCALATOR CONSTRUCTOR Gender Identity Not on file Sexual Orientation [...] Screening-Colonoscopy 12/07/20342024 Medical Devices Implanted Type Area Manager Costing Device Identifier Shelf Expiration Date Model / Serial / Lot Port Right: Chest Wall Procedures Procedure Name Priority Date/Time Associated Diagnosis Comments COLONOSCOPY 12/07/2024 9:45 AM CDT Gastrointestinal hemorrhage, unspecified gastrointestinal hemorrhage type COLONOSCOPY 12/07/2024 9:43 AM CDT ECG 12-LEAD Routine 12/07/2024 9:05 AM CDT EGFR Routine 10/18/2024 5:10 AM ESCALATOR CONSTRUCTOR DIFFERENTIAL AUTO Routine 10/18/2024 5:10 AM ESCALATOR CONSTRUCTOR COMPREHENSIVE METABOLIC PANEL Routine 5:10 AM ESCALATOR CONSTRUCTOR CBC WITH AUTO DIFFERENTIAL Routine 10/18 5:10 AM ESCALATOR CONSTRUCTOR SURGICAL PATHOLOGY Routine 10/17/2024 2:54 PM ESCALATOR CONSTRUCTOR Hematemesis, unspecified whether nausea present ESOPHAGOGASTRODUODENOSCOPY BIOPSY 10/17/2024 2:41 PM ESCALATOR CONSTRUCTOR Hematemesis, unspecified whether nausea present EGD 10/17/2024 2:38 PM ESCALATOR CONSTRUCTOR EGFR Routine 10/17/2024 4:31 AM ESCALATOR CONSTRUCTOR DIFFERENTIAL AUTO Routine 10/17/2024 4:31 AM ESCALATOR CONSTRUCTOR COMPREHENSIVE METABOLIC PANEL Routine 4:31 AM ESCALATOR CONSTRUCTOR CBC WITH AUTO DIFFERENTIAL Routine 10/17 4:31 AM ESCALATOR CONSTRUCTOR EGFR Routine 10/16/2024 4:02 AM ESCALATOR CONSTRUCTOR DIFFERENTIAL AUTO Routine 10/16/2024 4:02 AM ESCALATOR CONSTRUCTOR COMPREHENSIVE METABOLIC PANEL Routine 4:02 AM ESCALATOR CONSTRUCTOR CBC WITH AUTO DIFFERENTIAL Routine 10/16 4:02 AM ESCALATOR CONSTRUCTOR STOOL CULTURE Routine 10/15/2024 4:01 PM ESCALATOR CONSTRUCTOR HIV 1/2 ANTIBODY PLUS P24 ANTIGEN Routine 10/15/2024 8:38 AM ESCALATOR CONSTRUCTOR MAGNESIUM Routine 10/15/2024 4:36 AM ESCALATOR CONSTRUCTOR EGFR Routine 10/15/2024 4:36 AM ESCALATOR CONSTRUCTOR DIFFERENTIAL AUTO Routine 10/15/2024 4:36 AM ESCALATOR CONSTRUCTOR COMPREHENSIVE METABOLIC PANEL Routine 4:36 AM ESCALATOR CONSTRUCTOR CBC WITH AUTO DIFFERENTIAL Routine 10/15 4:36 AM ESCALATOR CONSTRUCTOR CBC WITHOUT DIFFERENTIAL STAT 025 9:36 AM ESCALATOR CONSTRUCTOR MICROBIOLOGY CALLBACK Routine 10/13/2024 12:31 PM ESCALATOR CONSTRUCTOR CRYPTOSPORIDIUM AND GIARDIA ANTIGEN ASSAY Routine 10/13/2024 12:31 PM ESCALATOR CONSTRUCTOR NOROVIRUS PCR Routine 10/13/2024 12:31 PM ESCALATOR CONSTRUCTOR STOOL CULTURE Routine 10/13/2024 12:31 PM ESCALATOR CONSTRUCTOR CRP (ACUTE PHASE) Add-On 10/13/2024 10:16 AM ESCALATOR CONSTRUCTOR ERYTHROCYTE SEDIMENTATION RATE Add-On 0 10/13/2024 10:16 AM ESCALATOR CONSTRUCTOR EGFR Routine 10/13/2024 4:49 AM ESCALATOR CONSTRUCTOR DIFFERENTIAL AUTO Routine 10/13/2024 4:49 AM ESCALATOR CONSTRUCTOR FERRITIN Routine 10/13/2024 4:49 AM ESCALATOR CONSTRUCTOR IRON PROFILE W/ IBC Routine 10/13/2024 4:49 AM ESCALATOR CONSTRUCTOR CBC WITH AUTO DIFFERENTIAL Routine 10/13 4:49 AM ESCALATOR CONSTRUCTOR BASIC METABOLIC PANEL Routine 10/13/2024 4:49 AM ESCALATOR CONSTRUCTOR PROTIME-INR Routine 10/12/2024 6:25 PM ESCALATOR CONSTRUCTOR HEMOGLOBIN AND HEMATOCRIT STAT 2024 5:42 PM ESCALATOR CONSTRUCTOR B ABO / RH CONFIRMATION TESTING STAT 10/12/2024 5:[address] CHEST PE ABDOMEN PELVIS W CONTRAST ED 10/12/2024 3:27 PM ESCALATOR CONSTRUCTOR URINALYSIS AND REFLEX TO MICROSCOPIC AND CULTURE STAT 10/12/2024 3:01 PM ESCALATOR CONSTRUCTOR MANUAL DIFFERENTIAL STAT 10/12/2024 10:11 AM ESCALATOR CONSTRUCTOR EGFR STAT 10/12/2024 10:11 AM ESCALATOR CONSTRUCTOR DIFFERENTIAL AUTO STAT 10/12/2024 10:11 AM ESCALATOR CONSTRUCTOR ANTIBODY SCREEN STAT 10/12/2024 10:11 AM ESCALATOR CONSTRUCTOR ABO/RH STAT 10/12/2024 10:11 AM ESCALATOR CONSTRUCTOR TYPE AND SCREEN STAT 10/12/2024 10:11 AM ESCALATOR CONSTRUCTOR COMPREHENSIVE METABOLIC PANEL STAT 10:11 AM ESCALATOR CONSTRUCTOR CBC WITH AUTO DIFFERENTIAL STAT 10/12 10:11 AM ESCALATOR CONSTRUCTOR from Last 3 Months Results * Colonoscopy (12/07/2024 9:43 AM CDT) Anatomical Region Laterality Modality Other Narrative Procedure Note Dawood Dueñas MD - 12/07/2024 9:43 AM CDT [facility] GI ENDOSCOPY Patient Name: Regi Snyder Procedure Date: 12/07/2024 9:43 AM Date of : 1960 Admit Type: Outpatient Age: 64 Gender: Female Attending MD: Dawood Dueñas M.D. Room: [facility] ENDOSCOPY ROOM 06 Note Status: Finalized Procedure: [...] On: 12/07/2024 9:43 AM Recognized by the [employer] for promoting quality in endoscopy us Dawood Dueñas MD ENDOSCOPY PROCEDURES Cris l Result * ECG 12 lead (12/07/2024 9:05 AM CDT) Ventricular Rate EKG/Min 74 BPM [facility] Atrial Rate 74 BPM [facility] WI-Interval (MSEC) 138 ms [facility] QRS-Interval (MSEC) 72 ms [facility] QT-Interval (MSEC) 434 ms [facility] QTc 481 ms [facility] P [place] 60 degrees [facility] R [place] 25 degrees [facility] T [place] 55 degrees [facility] Diagnosis Normal sinus rhythm Nonspecific ST abnormality Abnormal ECG No previous ECGs available Confirmed by CONNOR MÉNDEZ M.D. ([id number]) on 12/08/2024 7:19:04 AM [facility] 12/07/2024 9:05 AM CDT 12/08/2024 7:19 AM CDT us Sylvia Alves MD ECG ORDERABLES Final Result Performing Organization Address City/[facility]/ZIP Co de Phone Number [facility] * eGFR (10/18/2024 5:10 AM ESCALATOR CONSTRUCTOR) eGFR 81 >=60 mL/min/1. 73 m2 Comment: [...] was last reviewed 2021. Testing performed by: [facility], [address] [place] [address], [place]., [address] Blood 10/18/2024 5:10 AM ESCALATOR CONSTRUCTOR 10/18/2024 5:30 AM ESCALATOR CONSTRUCTOR us Umair Garcia MD LAB BLOOD ORDERABLES Cris l Result [facility] [address] [facility] [place] [address] * (ABNORMAL) Differential, auto (10/18/2024 5:10 AM ESCALATOR CONSTRUCTOR) Neutrophil abs 18.4(H) 1.5 - 6.5 K/cumm Comment:Testing performed by : [address] [address] Imm gran abs 0.4(H) 0.0 - 0.1 K/cumm [facility] Comment:Testing performed by : [address] [address] Lymphocyte abs 1.5 0.8 - 3.3 K/cumm [facility] Comment:Testing performed by : [address] [address] Monocyte abs 1.8(H) 0.2 - 0.8 K/cumm [facility] Comment:Testing performed by : [address] [address] Eosinophil abs 0.2 0.0 - 0.5 K/cumm [facility] Comment:Testing performed by : [address] [address] Basophil abs 0.0 0.0 - 0.1 K/cumm [facility] Comment:Testing performed by : [address] [address] Neutrophil pct 82.6 % [facility] Comment: Interpretive Data Percent cell count reference ranges are not reported, since discordance with absolute values may lead to misinterpretation of CBC data. Current Interpretive Data was last revised on 2017. Testing performed by: [address] [address] Imm gran pct 1.7 % [facility] Comment: Interpretive Data Percent cell count reference ranges are not reported, since discordance with absolute values may lead to misinterpretation of CBC data. Current Interpretive Data was last revised on 2017. Testing performed by: [address] [address] Lymphocyte pct 6.7 % [facility] Comment: Interpretive Data Percent cell count reference ranges are not reported, since discordance with absolute values may lead to misinterpretation of CBC data. Current Interpretive Data was last revised on 2017. Testing performed by: [address] [address] Monocyte pct 8.0 % [facility] Comment: Interpretive Data Percent cell count reference ranges are not reported, since discordance with absolute values may lead to misinterpretation of CBC data. Current Interpretive Data was last revised on 2017. Testing performed by: [address] [address] Eosinophil pct 0.8 % [facility] Comment: Interpretive Data Percent cell count reference ranges are not reported, since discordance with absolute values may lead to misinterpretation of CBC data. Current Interpretive Data was last revised on 2017. Testing performed by: [address] [address] Basophil pct 0.2 % [facility] Comment: Interpretive Data Percent cell count reference ranges are not reported, since discordance with absolute values may lead to misinterpretation of CBC data. Current Interpretive Data was last revised on 2017. Testing performed by: [address] [address] Blood 10/18/2024 5:10 AM ESCALATOR CONSTRUCTOR 10/18/2024 5:30 AM ESCALATOR CONSTRUCTOR us Umair Garcia MD LAB BLOOD ORDERABLES Cris l Result [facility] [address] [facility] Department [place] [address] * (ABNORMAL) CBC with auto differential (10/18/2024 5:10 AM ESCALATOR CONSTRUCTOR) WBC 22.3(H) 3.8 - 9.9 K/cumm Comment:Testing performed by : [address] [address] Hgb 8.0(L) 11.9 - 15.5 g/dL [facility] Comment:Testing performed by : [address] [address] Hct 24.4(L) 35.6 - 45.5 % [facility] Comment:Testing performed by : [address], [address] Plt 229 150 - 400 K/cumm [facility] Comment:Testing performed by : [address] [address] MPV 10.4 9.1 - 12.3 fL [facility] Comment:Testing performed by : [address], [address] RBC 2.58(L) 3.90 - 5.20 M/cumm [facility] Comment:Testing performed by : [address], [address] MCV 94.6 81.3 - 96.4 fL [facility] Comment:Testing performed by : [address], [address] MCH 31.0 27.1 - 33.3 pg [facility] Comment:Testing performed by : [address], [address] MCHC 32.8 32.3 - 35.7 g/dL [facility] Comment:Testing performed by : [address], [address] RDW CV 13.2 11.1 - 14.9 % [facility] Comment:Testing performed by : [address], [address] RDW SD 45.1 35.7 - 48.1 fL [facility] Comment:Testing performed by : [address], [address] NRBC abs 0.00 0.00 - 0.01 K/cumm [facility] Comment:Testing performed by : [address], [address] Blood 10/18/2024 5:10 AM ESCALATOR CONSTRUCTOR 10/18/2024 5:30 AM ESCALATOR CONSTRUCTOR us Umair Garcia MD LAB BLOOD ORDERABLES Cris l Result [facility] Department [place] [address] * (ABNORMAL) Comprehensive metabolic panel (10/18/2024 5:10 AM ESCALATOR CONSTRUCTOR) Sodium 140 135 - 145 mmol/L Comment:Testing performed by : [address], [place]., [address] Potassium, pl 3.6 3.3 - 4.9 mmol/L [facility] Comment:Testing performed by : [address] [address] Chloride 106 97 - 110 mmol/L [facility] Comment:Testing performed by : [address], [place]., [address] CO2 26 22 - 32 mmol/L [facility] Comment:Testing performed by : [address], [place]., [address] Anion gap 8 2 - 15 mmol/L [facility] Comment:Testing performed by : [address] [address] BUN 6 6 - 25 mg/dL [facility] Comment:Testing performed by : [address], [place]., [address] Creatinine 0.80 0.60 - 1.10 mg/dL [facility] Comment:Testing performed by : [address] [address] Glucose 122 70 - 199 mg/dL [facility] [...] was last revised 2022. Testing performed by: [address], [place]., [address] Calcium 7.6(L) 8.5 - 10.3 mg/dL [facility] Comment:Testing performed by : [address] [address] Bilirubin, total <0.2 0.1 - 1.2 mg/dL [facility] Comment:Testing performed by : [address] [address] Protein, pl 5.4(L) 6.5 - 8.5 g/dL [facility] Comment:Testing performed by : [address] [address] Albumin 3.2(L) 3.5 - 5.0 g/dL [facility] Comment:Testing performed by : [address], [facility], [address] Alk phos 106 40 - 130 Units/L [facility] Comment:Testing performed by : [address], [facility], [address] ALT 10 7 - 45 Units/L [facility] Comment:Testing performed by : [address], [address] AST 15 10 - 45 Units/L [facility] Comment:Testing performed by : [address], [address] Blood 10/18/2024 5:10 AM ESCALATOR CONSTRUCTOR 10/18/2024 5:30 AM ESCALATOR CONSTRUCTOR us Umair Garcia MD LAB BLOOD ORDERABLES Cris l Result Performing Organization Address City/State/[facility] Co hi Phone Number [address] Department [place] [address] * Surgical pathology (10/17/2024 2:54 PM ESCALATOR CONSTRUCTOR) Tissue specimen (specimen) (Gastric/Stomach biopsy) 10/17/2024 2:54 PM ESCALATOR CONSTRUCTOR Narrative [facility] - 10/20/2024 3:35 PM ESCALATOR CONSTRUCTOR [facility] Department of Pathology [address] [place] [address] Note to Patients: This report may contain [...] : 1960 (Age: 64) Gender: F Address: [address] [place] [address] Hospital #: [id number] Service: Medical Location: Patient Type: [facility] INPATIENT Taken: 10/17/2024 Received: 10/17/2024 Accessioned: 10/19/2024 [...] Clinical History: The patient is a 64-year-old [id number]|2025-01-01 10:53:00|2025-01-01 10:53:00|PM.PNNEP||||"Progress Note: A&P Assessment and Plan (1) Acute kidney injury: Code(s): N17.9 - Acute kidney failure, unspecified Status: Acute Assessment and Plan: improvement noted (if not back to baseline) as noted on admission multifactorial etiology: prerenal factors (diarrhea) hemodynamic instability/hypotension infection/early sepsis(?) use of ARB prior to admission other(?) evaluation to date noted: renal ultrasound without obstruction urine electrolytes are prerenal urine eosinophils negative CPK normal mild proteinuria s/p IVF resuscitation optimized hemodynamics as tolerated hold losartan follow trend of repeat labs and UOP (2) Stage 3a chronic kidney disease: Code(s): N18.31 - Chronic kidney disease, stage 3a Status: Chronic Assessment and Plan: baseline creatinine runs ~ 0.9 - 1.2mg/dl presumably due to hypertension and age-related change (3) Hypotension: Code(s): I95.9 - Hypotension, unspecified Status: Acute Assessment and Plan: improving felt to be secondary to hypovolemia/volume depletion/dehydration from diarrhea clinically better with IVF resuscitation monitor for the need for vasopressor therapy lactic acid normal follow trend of hemodynamics (4) Metabolic acidosis: Code(s): E87.20 - Acidosis, unspecified Status: Acute Assessment and Plan: due to acute kidney injury/acute renal failure in conjunction from GI losses (diarrhea) follow trend of CO2 may need to consider adding oral sodium bicarb to compensate (5) Hyponatremia: Code(s): E87.1 - Hypo-osmolality and hyponatremia Status: Chronic Assessment and Plan: has been present as far back as early 2023 probably due to a combination of SUDHA, volume depletion, and underlying malignancy/cancer follow trend (6) Diarrhea: Qualifiers: Diarrhea type: presumed infectious Qualified Code(s): R19.7 - Diarrhea, unspecified Code(s): R19.7 - Diarrhea, unspecified Status: Acute Assessment and Plan: reportedly present x 2 weeks prior to presentation 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 also is on chemotherapy as well CT scan of the abdomen pelvis showed minimal thickening of sigmoid colon suggestive of colitis stool negative for C diff toxin follow stool cultures - negative to date started on immodium empirically on antibiotics (7) UTI (urinary tract infection): Code(s): N39.0 - Urinary tract infection, site not specified Status: Acute Assessment and Plan: admission urinalysis suggestive no urine culture done on antibiotics (8) Adenocarcinoma of left lung, stage 4: Code(s): C34.92 - Malignant neoplasm of unspecified part of left bronchus or lung Status: Chronic Assessment and Plan: known diagnosis currently on chemotherapy follows with Hem/Onc Will continue to follow. Subjective Date/time seen: 01/01/25 10:53 Interval history: Follow-up for acute kidney injury/acute renal failure on chronic kidney disease. Continues to have on/off diarrhea and she thinks it maybe a little worse than yesterday; renal function/creatinine continues to improve; no other issues/events overnight or earlier this morning; in spite or diarrhea, reports eating and drinking reasonably well. Exam Narrative: General: elderly but WD/WN female in NAD Heart: normal S1 and S2; no rub Lungs: clear to auscultation Abdomen: soft, nontender, nondistended, positive bowel sounds Extremities: no cyanosis or clubbing; no edema Skin: no rash or nodules Objective Data Vital Signs Vital Signs: Vital Signs Temp Pulse Resp BP Pulse Ox 01/01/25 10:40 97.9 F 92 18 111/55 L 97 01/01/25 08:30 87 01/01/25 04:28 98.4 F 88 16 129/69 98 01/01/25 04:00 74 01/01/25 00:00 72 12/31/24 20:58 98.6 F 92 16 136/67 96 12/31/24 20:00 96 Intake/Output Intake/Output: Intake & Output 12/29/24 12/30/24 12/31/24 01/01/25 23:59 23:59 23:59 23:59 Intake Total 3000 4430 2970 1960 Output Total 2450 1800 1725 Balance 3000 1980 1170 235 Meds/Results Medications: Active Medications Generic Name Dose Route Start Last Admin Trade Name Freq PRN Reason Stop Dose Admin Acetaminophen 650 mg 12/29/24 13:12 12/31/24 18:19 Acetaminophen 325 Mg Tablet PO 650 mg Q4H PRN Administration Mild Pain (1-3) or Fever Calcium Carbonate 500 mg 12/31/24 09:00 01/01/25 16:20 Calcium Carbonate (Oscal) 500 Mg Tablet PO 01/30/25 08:59 500 mg BID LISSETTE Administration Enoxaparin Sodium 40 mg 01/01/25 09:00 01/01/25 08:27 Enoxaparin 40 Mg/0.4 Ml Syringe SUB-Q 40 mg DAILY LISSETTE Administration Folic Acid 1 mg 12/31/24 09:00 01/01/25 08:27 Folic Acid 1 Mg Tablet PO 1 mg DAILY LISSETTE Administration Ceftriaxone Sodium 1 gm in 50 mls @ 100 mls/hr 12/30/24 11:00 01/01/25 11:12 Rocephin 1 Gm/Ns 50 Ml IVPB Infused Q24H LISSETTE Infusion Metronidazole 500 mg in 100 mls @ 100 mls/hr 12/30/24 11:00 01/01/25 11:43 Flagyl 500 Mg/Iso Soln 100 Ml IVPB Infused Q8H LISSETTE Infusion Loperamide HCl 2 mg 01/01/25 09:00 01/01/25 16:20 Loperamide Hcl 2 Mg Capsule PO 2 mg TID LISSETTE Administration Pantoprazole Sodium 40 mg 12/31/24 09:00 01/01/25 08:27 Pantoprazole 40 Mg Tablet PO 40 mg Q12HR LISSETTE Administration Saccharomyces Boulardii 250 mg 12/31/24 17:00 01/01/25 16:20 Saccharomyces Boulardii 250 Mg Capsule PO 250 mg BID LISSETTE Administration Tramadol HCl 50 mg 12/29/24 21:29 12/30/24 20:17 Tramadol Hcl (*Crx) 50 Mg Tablet PO 50 mg Q6H PRN Administration Pain Rated 4-6 Radiology Results: ITS Impressions Abdomen/Pelvis CT 12/29/24 13:23 IMPRESSION: 1. Minimal pericardial effusion. 2. Minimal thickening of the sigmoid colon wall which may indicate colitis. 3. No evidence of appendicitis, diverticulitis or intestinal obstruction Renal Ultrasound 12/29/24 22:28 IMPRESSION: No hydronephrosis or renal calculi. The bladder is decompressed, limiting its evaluation Labs Labs: Laboratory Tests 01/01/25 04:34 01/01/25 04:34 Calcium 8.7 Phosphorus 2.2 L Magnesium 1.6 Total Bilirubin 0.2 AST 20 ALT 11 Alkaline Phosphatase 62 Total Protein 6.0 L Albumin 4.0 Microbiology 12/29/24 15:49 Stool Escherichia coli Shiga Toxins - Final 12/29/24 15:49 Stool Salmonella/Shigella Culture - Final 12/29/24 15:49 Stool Campylobacter Antigen Assay - Final"
--- OUTSIDE RECORDS SUMMARY | 2024-12-29 11:38 | XMS_ITS | Clinical Summary ---
Author Organization [facility] Address [address] [place] [address] [place] [address] Care Team Providers Care Cdl Flatbed Truck Driver Name Role Phone Iraj Spencer MD Primary Care Provider [phone] Allergies No known active allergies Medications losartan [...] every 4 hours as needed for Pain. 025 Active polyethylene glycol (MIRALAX) 17 gram Powder in Packet Take 17 Grams by mouth 1 time daily as needed for Constipation. Active lansoprazole (Prevacid) 30 mg Capsule, Delayed Release(E.C.) Take 1 Capsule (30 mg) by mouth daily. 30 Capsule 6 025 Active potassium CHLORIDE (K-DUR,KLOR-CO N M20) 20 mEq Extended Release tablet Take 1 tablet by mouth twice daily 60 Tablet 1 Active lansoprazole (Prevacid) 30 mg Capsule, Delayed Release(E.C.) Take 1 Capsule (30 mg) by mouth daily. 30 Capsule 6 024 2024 Discontinued(R eorder) potassium CHLORIDE (K-DUR,KLOR-CO N M20) 20 mEq Extended Release tablet Take 1 tablet by mouth twice daily 60 Tablet 025 2024 Discontinued Active Problems No known active problems Encounters Date Type Department Care Team Description 12/29/2024 10:15 AM CDT Office Visit [facility] [address] [place] [address] Abdirashid Acosta MD Malignant neoplasm of lung, unspecified laterality, unspecified part of lung (CMS/HCC) (Primary Dx) 12/29/2024 Refill [facility] [address] [place] [address] Abdirashid Acosta MD 12/28/2024 Orders Only [facility] - [address] [place] [address] Abdirashid Acosta MD Malignant neoplasm of lung, unspecified laterality, unspecified part of lung (CMS/HCC) 12/23/2024 Orders Only [facility] - [address] [place] [id number] Abdirashid Acosta MD 12/14/2024 Orders Only [facility] - [address] Abdirashid Acosta MD Malignant neoplasm of lung, unspecified laterality, unspecified part of lung (CMS/HCC) 12/11/2024 Orders Only [facility] - [address] Abdirasihd Acosta MD 12/09/2024 Orders Only [facility] - [address] Abdirashid Acosta MD 12/08/2024 8:30 AM CDT Office Visit [facility] - [address] Abdirashid Acosta MD Malignant neoplasm of lung, unspecified laterality, unspecified part of lung (CMS/HCC) (Primary Dx) 12/07/2024 Orders Only [facility] - [address] [place] [id number] Abdirashid Acosta MD Need for hepatitis B screening test (Primary Dx) 11/30/2024 Orders Only [facility] - [address] [place] [id number] Abdirashid Acosta MD Malignant neoplasm of lung, unspecified laterality, unspecified part of lung (CMS/HCC) 11/27/2024 Refill [facility] - [address] [place] [id number] Abdirashid Acosta MD 11/18/2024 Orders Only [facility] - [address] [place] [address] Abdirashid Acosta MD 11/16/2024 Orders Only [facility] - [address] [place] [address] Abdirashid Acosta MD Malignant neoplasm of lung, unspecified laterality, unspecified part of lung (CMS/HCC) 11/11/2024 External Device Data STL ABSTRACTION Provider, Abstract 11/04/2024 Orders Only [facility] - [address] [place] [address] Abdirashid Acosta MD 11/02/2024 Orders Only [facility] - [address] [place] [address] Abdirashid Acosta MD Malignant neoplasm of lung, unspecified laterality, unspecified part of lung ([facility]/HCC) 10/31/2024 External Device Data STL ABSTRACTION Provider, Abstract 10/30/2024 External Device Data STL ABSTRACTION Provider, Abstract 10/28/2024 Telephone [facility] - [address] [place] [address] Abdirashid Acosta MD Lab Results 10/28/2024 Orders Only [facility] - [address] [place] [address] Abdirashid Acosta MD 10/27/2024 External Device Data STL ABSTRACTION Provider, Abstract 10/27/2024 Orders Only [facility] - [address] [place] [address] Abdirashid Acosta MD 10/27/2024 Telephone [facility] - [address] [place] [address] Abdirashid Acosta MD Iron Studies 10/20/2024 1:15 PM GAME TECHNICIAN Office Visit [facility] - [address] Abdirashid Acosta MD Malignant neoplasm of lung, unspecified laterality, unspecified part of lung (CMS/HCC) (Primary Dx); Anemia due to chemotherapy 10/19/2024 Orders Only [facility] - [address] Abdirashid Acosta MD Malignant neoplasm of lung, unspecified laterality, unspecified part of lung (CMS/HCC) 10/16/2024 Telephone [facility] - [address] Abdirashid Acosta MD Patient Update 10/14/2024 External Device Data STL ABSTRACTION Provider, Abstract 10/13/2024 External Device Data STL ABSTRACTION Provider, Abstract 10/12/2024 Telephone [facility] - [address] [place] [id number] Abdirashid Acosta MD Diarrhea 10/05/2024 Orders Only [facility] - [address] Abdirashid Acosta MD Malignant neoplasm of lung, unspecified laterality, unspecified part of lung (CMS/HCC) 10/01/2024 Orders Only [facility] - [address] Abdirashid Acosta MD 10/01/2024 Telephone [facility] - [address] Abdirashid Acosta MD Lab results 10/01/2024 Telephone [facility] - [address] [place] [id number] Abdirashid Acosta MD Diarrhea from Last 3 [...] 12.8 oz) 025 10:10 AM CDT Height 154.9 cm (5' 1 ) 01/09/2024 11:3 0 AM CDT Body Mass Index 25.47 01/09/2024 11:30 AM CDT Plan of Treatment Health Maintenance [...] (MA) Prev entative Visit/Annual Wellness Visit 08/26/2024 COLORECTAL SCREENING 12/07/2034 12/07/2024, 12/08/19 Colorectal Cancer Screening 12/07/2034 Procedures Procedure Name Priority Date/Time Associated Diagnosis Comments CT CHEST ABDOMEN PELVIS W CONT Routine 12/22/2024 10:26 AM CDT QUANTIFERON TB CONFIRMATION Routine 11/24 12:10 PM CDT COMPREHENSIVE METABOLIC PANEL Routine 12/08/2024 7:53 AM CDT COMPREHENSIVE METABOLIC PANEL Routine 11/17/2024 2:11 PM CDT COMPREHENSIVE METABOLIC PANEL Routine 11/03/2024 9:38 AM CDT CBC WITH AUTODIFFERENTIAL Routine 2024 4:16 PM GAME TECHNICIAN BASIC METABOLIC PANEL Routine 10/27/2024 9:30 AM GAME TECHNICIAN CBC WITH DIFFERENTIAL Routine 10/20/2024 4:29 PM GAME TECHNICIAN BASIC METABOLIC PANEL Routine 10/01/2024 10:18 AM GAME TECHNICIAN from Last 3 Months Results * CT CHEST ABDOMEN PELVIS W CONT (12/22/2024 10:26 AM CDT) Anatomical Region Laterality Modality Chest Computed Tomogra phy us Abdirashid Acosta MD CT ORDERABLES Final Result * QUANTIFERON TB CONFIRMATION (12/08/2024 12:10 PM CDT) Blood us Abdirashid Acosta MD CHEMISTRY ORDERABLES Final Resu lt * COMPREHENSIVE METABOLIC PANEL (12/08/2024 7:53 AM CDT) Only the most recent of3 resultswithin the time period is included. Blood us Abdirashid Acosta MD CHEMISTRY ORDERABLES Final Resu lt * CBC WITH AUTODIFFERENTIAL (10/27/2024 4:16 PM GAME TECHNICIAN) Blood us Abdirashid Acosta MD HEMATOLOGY ORDERABLES Final Res ult * BASIC METABOLIC PANEL (10/27/2024 9:30 AM GAME TECHNICIAN) Only the most recent of2 resultswithin the time period is included. Blood us Abdirashid Acosta MD CHEMISTRY ORDERABLES Final Resu lt * CBC WITH DIFFERENTIAL (10/20/2024 4:29 PM GAME TECHNICIAN) Blood us Abdirashid Acosta MD HEMATOLOGY ORDERABLES Final Res ult from Last 3 Months Insurance [place] [id number] Advance Directives For more information, please contact: [phone] Documents on File Type Date Recorded Patient Caddy Packer Expl anation Advance Directive Living Will 01/09/2024 12:02 PM Advance Directive POA 01/09/2024 12:02 PM Care Teams Cdl Flatbed Truck Driver Relationship Specialty Start Date End Date Iraj Spencer MD [facility] [facility] [address] PCP - General Family Practice 12/12/23
[2024-12-29] MEDS: SODIUM CHLORIDE 0.9% IV 500 ML 999 ML IV CONT (11:48)
[2024-12-29 12:03] LABS: Basophils Absolute Auto 0.1 K/mm3 (0.0-0.1); Basophils Percent Auto 1.2 % (0.2-1.2); Eosinophils Absolute Auto 0.1 K/mm3 (0-0.3); Hematocrit 32.9 % (37.0-47.0); Hemoglobin 10.8 g/dL (12.0-15.0); Immature Granulocyte Percent A 2.6 % (0-0.5); Lymphocytes Percent Auto 13.1 % (18.3-44.2); Mean Corpuscular HGB Conc 32.8 g/dl (32-36); Mean Corpuscular Hemoglobin 30.7 pg (26-34); Mean Corpuscular Volume 93.5 fl (80-100); Mean Platelet Volume 9.2 fl (7.4-10.4); Monocytes Absolute Auto 1.2 K/mm3 (0.1-0.6); Neutrophils Percent Auto 66.1 % (45.5-73.1); Platelet Count Result 657 k/mm3 (150-375); Red Blood Count 3.52 M/mm3 (4.2-5.4); Red Cell Distribution Width 14.6 % (11.5-14.5); White Blood Count 7.6 K/mm3 (4.5-10.0)
[2024-12-29 12:05] LABS: Alanine Aminotransferase 21 U/L (6-35); Albumin Level 4.4 g/dL (3.5-5.1); Alkaline Phosphatase 101 U/L (38-126); Anion Gap 18 mmol/L (4-12); Aspartate Amino Transferase 33 U/L (14-36); Bilirubin,Total 0.6 mg/dL (0.2-1.3); Blood Urea Nitrogen 37 mg/dL (7-17); Calcium 8.8 mg/dL (8.4-10.2); Carbon Dioxide 12 mmol/L (22-30); Chloride 98 mmol/L (98-107); Estimated CRCL calculation 9 ml/min; Estimated Glomerular Filt Rate 10; Glucose 135 mg/dL (65-110); Potassium 3.8 mmol/L (3.4-5.0); Sodium 128 mmol/L (137-145)
--- OUTSIDE RECORDS SUMMARY | 2024-12-29 12:18 | XMS_ITS | Encounter Summary ---
Author Organization [facility] Address [address] [place] [address] Care Team Providers Care Technology Consultant Name Role Phone Iraj Spencer MD Primary Care Provider [phone] Encounter Details Date Type Department Care Team (Late st Contact Info) Description 12/23/2024 Orders Only [facility] - [address] [facility] [address] [place] [address] Abdirashid Acosta MD [address] [facility] [address] [place] [address] Social History Tobacco Use Types [...] on filedocumented in this encounter Care Teams Technology Consultant Relationship Specialty Start Date End Date Iraj Spencer MD [address] [facility] [place] [address] PCP - General Family Practice 12/12/23 documented as of this encounter
--- OUTSIDE RECORDS SUMMARY | 2024-12-29 12:18 | XMS_ITS | Continuity of Care Document ---
Author Organization [facility] Address [address] [place] [address] [place] [address] Phone Care Team Providers Care Ware Dresser Name Role Phone Unavailable Unavailable Unavailable Advance Directives Directive Yes / No Effective Date File Name No Information Encounters Encounter Description Practice Location Reason(s) For Visit Diagnoses Date Provider Providers Copied on Encounter [facility], [address], [place], [place], [id number], [place] tel:[phone] [facility] No Information Apr-2 7-200 0 No Information Family History Family Member Type Diagnosis Age At Onset No Information Payers Payer name Insurance type Covered alliance party ID Authoriza tion(s) No Information Social [...]
--- OUTSIDE RECORDS SUMMARY | 2024-12-29 12:18 | XMS_ITS | Clinical Summary ---
Author Organization [facility] Address [address] [place] [address] Care Team Providers Care Rural Route Mail Carrier Name Role Phone Amy Saldivar DO Primary Care Provider [phone] Allergies No known active allergies Medications dexAMETHasone [...] Team Description 9:43 AM CDT Anesthesia Event [facility] [address] [place] [address] Sylvia Alves MD 5 9:30 AM CDT - 5 10:00 AM CDT Surgery [facility] [address] [place] [address] Dawood Dueñas MD COLONOSCOPY 5 8:35 AM CDT - 5 10:57 AM CDT Hospital Encounter [facility] GI Lab [address] [place] [address] Dawood Dueñas MD Discharge Disposition: Discharge to home or self care 5 9:30 AM CDT Office Visit [facility] Gastroenterology at [address] [place] [phone] Laurence Patrick NP Gastrointestinal hemorrhage, unspecified gastrointestinal hemorrhage type 5 Telephone [facility] Gastroenterology at [address] [place] [address] Enrike Camacho MD 5 2:39 PM SIZING MACHINE AND DRIER OPERATOR Anesthesia Event [facility] GI Endo [address] [place] [address] Dario Soria MD 5 2:00 PM SIZING MACHINE AND DRIER OPERATOR - 5 2:40 PM SIZING MACHINE AND DRIER OPERATOR Surgery [facility] GI Endo [address] [place] [address] Brain Rucker ra, MD ESOPHAGOGASTRODUODENOSCOPY BIOPSY 5 2:00 PM SIZING MACHINE AND DRIER OPERATOR - 5 2:30 PM SIZING MACHINE AND DRIER OPERATOR Surgery [facility] GI Endo [address] [place] [address] Brain Rucker ra, MD Not Performed COLONOSCOPY 5 5:25 PM SIZING MACHINE AND DRIER OPERATOR - 5 10:39 AM SIZING MACHINE AND DRIER OPERATOR Hospital Encounter [facility] 4 Med Surg [address] [place] [address] Anthony Kang MD Brother, Michele, MD Lopez, [...] Former Cigarettes Tobacco Cessation:Counseling Given: Not Answered [facility] Utilities Answer Date Recorded In the past 12 months has [employer], gas, oil, or water [place] threatened to shut off services in your [...] any clubs o r organizations such as jewish groups, unions, fraternal or athletic groups, or [...] any time in the past 12 m [facility], were you homeless or living in a skilled nursing (including now)? No 10/13/2024 Personal Safety Answer Date Recorded Have you ever been in or are you currently in a harmful physical or emotional relationship or is someone making you feel afraid or unsafe? Denies 12/07/2024 Comments No Sex and Gender Information Value Date Recorded Sex Assigned at Not on file Legal Sex Female 12:32 PM SIZING MACHINE AND DRIER OPERATOR Gender Identity Not on file Sexual [...] Screening-Colonoscopy 12/07/20342024 Medical Devices Implanted Type Area Bag Checker Device Identifier Shelf Expiration Date Model / Serial / Lot Port Right: Chest Wall Procedures Procedure Name Priority Date/Time Associated Diagnosis Comments COLONOSCOPY 12/07/2024 9:45 AM CDT Gastrointestinal hemorrhage, unspecified gastrointestinal hemorrhage type COLONOSCOPY 12/07/2024 9:43 AM CDT ECG 12-LEAD Routine 12/07/2024 9:05 AM CDT EGFR Routine 10/18/2024 5:10 AM SIZING MACHINE AND DRIER OPERATOR DIFFERENTIAL AUTO Routine 10/18/2024 5:10 AM SIZING MACHINE AND DRIER OPERATOR COMPREHENSIVE METABOLIC PANEL Routine 5:10 AM SIZING MACHINE AND DRIER OPERATOR CBC WITH AUTO DIFFERENTIAL Routine 10/18 5:10 AM SIZING MACHINE AND DRIER OPERATOR SURGICAL PATHOLOGY Routine 10/17/2024 2:54 PM SIZING MACHINE AND DRIER OPERATOR Hematemesis, unspecified whether nausea present ESOPHAGOGASTRODUODENOSCOPY BIOPSY 10/17/2024 2:41 PM SIZING MACHINE AND DRIER OPERATOR Hematemesis, unspecified whether nausea present EGD 10/17/2024 2:38 PM SIZING MACHINE AND DRIER OPERATOR EGFR Routine 10/17/2024 4:31 AM SIZING MACHINE AND DRIER OPERATOR DIFFERENTIAL AUTO Routine 10/17/2024 4:31 AM SIZING MACHINE AND DRIER OPERATOR COMPREHENSIVE METABOLIC PANEL Routine 4:31 AM SIZING MACHINE AND DRIER OPERATOR CBC WITH AUTO DIFFERENTIAL Routine 10/17 4:31 AM SIZING MACHINE AND DRIER OPERATOR EGFR Routine 10/16/2024 4:02 AM SIZING MACHINE AND DRIER OPERATOR DIFFERENTIAL AUTO Routine 10/16/2024 4:02 AM SIZING MACHINE AND DRIER OPERATOR COMPREHENSIVE METABOLIC PANEL Routine 4:02 AM SIZING MACHINE AND DRIER OPERATOR CBC WITH AUTO DIFFERENTIAL Routine 10/16 4:02 AM SIZING MACHINE AND DRIER OPERATOR STOOL CULTURE Routine 10/15/2024 4:01 PM SIZING MACHINE AND DRIER OPERATOR HIV 1/2 ANTIBODY PLUS P24 ANTIGEN Routine 10/15/2024 8:38 AM SIZING MACHINE AND DRIER OPERATOR MAGNESIUM Routine 10/15/2024 4:36 AM SIZING MACHINE AND DRIER OPERATOR EGFR Routine 10/15/2024 4:36 AM SIZING MACHINE AND DRIER OPERATOR DIFFERENTIAL AUTO Routine 10/15/2024 4:36 AM SIZING MACHINE AND DRIER OPERATOR COMPREHENSIVE METABOLIC PANEL Routine 4:36 AM SIZING MACHINE AND DRIER OPERATOR CBC WITH AUTO DIFFERENTIAL Routine 10/15 4:36 AM SIZING MACHINE AND DRIER OPERATOR CBC WITHOUT DIFFERENTIAL STAT 025 9:36 AM SIZING MACHINE AND DRIER OPERATOR MICROBIOLOGY CALLBACK Routine 10/13/2024 12:31 PM SIZING MACHINE AND DRIER OPERATOR CRYPTOSPORIDIUM AND GIARDIA ANTIGEN ASSAY Routine 10/13/2024 12:31 PM SIZING MACHINE AND DRIER OPERATOR NOROVIRUS PCR Routine 10/13/2024 12:31 PM SIZING MACHINE AND DRIER OPERATOR STOOL CULTURE Routine 10/13/2024 12:31 PM SIZING MACHINE AND DRIER OPERATOR CRP (ACUTE PHASE) Add-On 10/13/2024 10:16 AM SIZING MACHINE AND DRIER OPERATOR ERYTHROCYTE SEDIMENTATION RATE Add-On 0 10/13/2024 10:16 AM SIZING MACHINE AND DRIER OPERATOR EGFR Routine 10/13/2024 4:49 AM SIZING MACHINE AND DRIER OPERATOR DIFFERENTIAL AUTO Routine 10/13/2024 4:49 AM SIZING MACHINE AND DRIER OPERATOR FERRITIN Routine 10/13/2024 4:49 AM SIZING MACHINE AND DRIER OPERATOR IRON PROFILE W/ IBC Routine 10/13/2024 4:49 AM SIZING MACHINE AND DRIER OPERATOR CBC WITH AUTO DIFFERENTIAL Routine 10/13 4:49 AM SIZING MACHINE AND DRIER OPERATOR BASIC METABOLIC PANEL Routine 10/13/2024 4:49 AM SIZING MACHINE AND DRIER OPERATOR PROTIME-INR Routine 10/12/2024 6:25 PM SIZING MACHINE AND DRIER OPERATOR HEMOGLOBIN AND HEMATOCRIT STAT 2024 5:42 PM SIZING MACHINE AND DRIER OPERATOR B ABO / RH CONFIRMATION TESTING STAT 10/12/2024 5:42 PM SIZING MACHINE AND DRIER OPERATOR CT CHEST PE ABDOMEN PELVIS W CONTRAST ED 10/12/2024 3:27 PM SIZING MACHINE AND DRIER OPERATOR URINALYSIS AND REFLEX TO MICROSCOPIC AND CULTURE STAT 10/12/2024 3:01 PM SIZING MACHINE AND DRIER OPERATOR MANUAL DIFFERENTIAL STAT 10/12/2024 10:11 AM SIZING MACHINE AND DRIER OPERATOR EGFR STAT 10/12/2024 10:11 AM SIZING MACHINE AND DRIER OPERATOR DIFFERENTIAL AUTO STAT 10/12/2024 10:11 AM SIZING MACHINE AND DRIER OPERATOR ANTIBODY SCREEN STAT 10/12/2024 10:11 AM SIZING MACHINE AND DRIER OPERATOR ABO/RH STAT 10/12/2024 10:11 AM SIZING MACHINE AND DRIER OPERATOR TYPE AND SCREEN STAT 10/12/2024 10:11 AM SIZING MACHINE AND DRIER OPERATOR COMPREHENSIVE METABOLIC PANEL STAT 10:11 AM SIZING MACHINE AND DRIER OPERATOR CBC WITH AUTO DIFFERENTIAL STAT 10/12 10:11 AM SIZING MACHINE AND DRIER OPERATOR from Last 3 Months Results * Colonoscopy (12/07/2024 9:43 AM CDT) Anatomical Region Laterality Modality Other Narrative Procedure Note Dawood Dueñas MD - 12/07/2024 9:43 AM CDT [facility] Patient Name: Regi Snyder Procedure Date: 12/07/2024 9:43 AM Date of : 1960 Admit Type: Outpatient Age: 64 Gender: Female Attending MD: Dawood Dueñas M.D. Room: [facility] ENDOSCOPY ROOM 06 Note Status: Finalized [...] On: 12/07/2024 9:43 AM Recognized by the [employer] for promoting quality in endoscopy us Dawood Dueñas MD ENDOSCOPY PROCEDURES Cris l Result * ECG 12 lead (12/07/2024 9:05 AM CDT) Ventricular Rate EKG/Min 74 BPM [facility] Atrial Rate 74 BPM [facility] NE-Interval (MSEC) 138 ms [facility] QRS-Interval (MSEC) 72 ms [facility] QT-Interval (MSEC) 434 ms [facility] QTc 481 ms [facility] P [place] 60 degrees [facility] R [place] 25 degrees [facility] T [place] 55 degrees [facility] Diagnosis Normal sinus rhythm Nonspecific ST abnormality Abnormal ECG No previous ECGs available Confirmed by CONNOR MÉNDEZ M.D. ([id number]) on 12/08/2024 7:19:04 AM [facility] 12/07/2024 9:05 AM CDT 12/08/2024 7:19 AM CDT us Sylvia Alves MD ECG ORDERABLES Final Result Performing Organization Address City/[facility]/ZIP Co de Phone Number [facility] * eGFR (10/18/2024 5:10 AM SIZING MACHINE AND DRIER OPERATOR) eGFR 81 >=60 mL/min/1. 73 m2 [...] reviewed 2021. Testing performed by: [facility], [address] [place] [address], [place]., [address] Blood 10/18/2024 5:10 AM SIZING MACHINE AND DRIER OPERATOR 10/18/2024 5:30 AM SIZING MACHINE AND DRIER OPERATOR us Umair Garcia MD LAB BLOOD ORDERABLES Cris l Result [facility] [address] [facility] Department [place] [address] * (ABNORMAL) Differential, auto (10/18/2024 5:10 AM SIZING MACHINE AND DRIER OPERATOR) Neutrophil abs 18.4(H) 1.5 - 6.5 K/cumm Comment:Testing performed by : [address] [address] Imm gran abs 0.4(H) 0.0 - 0.1 K/cumm [facility] Comment:Testing performed by : [address] [address] Lymphocyte abs 1.5 0.8 - 3.3 K/cumm [facility] Comment:Testing performed by : [address] [address] Monocyte abs 1.8(H) 0.2 - 0.8 K/cumm [facility] Comment:Testing performed by : [address] [address] Eosinophil abs 0.2 0.0 - 0.5 K/cumm [facility] Comment:Testing performed by : [address] [address] Basophil abs 0.0 0.0 - 0.1 K/cumm [facility] Comment:Testing performed by : [address] [address] Neutrophil pct 82.6 % [facility] Comment: Interpretive Data Percent cell count reference ranges are not reported, since discordance with absolute values may lead to misinterpretation of CBC data. Current Interpretive Data was last revised on 2017. Testing performed by: [address] [address] Imm gran pct 1.7 % [facility] Comment: Interpretive Data Percent cell count reference ranges are not reported, since discordance with absolute values may lead to misinterpretation of CBC data. Current Interpretive Data was last revised on 2017. Testing performed by: [address] [address] Lymphocyte pct 6.7 % [facility] Comment: Interpretive Data Percent cell count reference ranges are not reported, since discordance with absolute values may lead to misinterpretation of CBC data. Current Interpretive Data was last revised on 2017. Testing performed by: [address] [address] Monocyte pct 8.0 % [facility] Comment: Interpretive Data Percent cell count reference ranges are not reported, since discordance with absolute values may lead to misinterpretation of CBC data. Current Interpretive Data was last revised on 2017. Testing performed by: [address] [address] Eosinophil pct 0.8 % [facility] Comment: Interpretive Data Percent cell count reference ranges are not reported, since discordance with absolute values may lead to misinterpretation of CBC data. Current Interpretive Data was last revised on 2017. Testing performed by: [address] [address] Basophil pct 0.2 % [facility] Comment: Interpretive Data Percent cell count reference ranges are not reported, since discordance with absolute values may lead to misinterpretation of CBC data. Current Interpretive Data was last revised on 2017. Testing performed by: [address] [address] Blood 10/18/2024 5:10 AM SIZING MACHINE AND DRIER OPERATOR 10/18/2024 5:30 AM SIZING MACHINE AND DRIER OPERATOR us Umair Garcia MD LAB BLOOD ORDERABLES Cris l Result [facility] [address] [facility] Department [place] [address] * (ABNORMAL) CBC with auto differential (10/18/2024 5:10 AM SIZING MACHINE AND DRIER OPERATOR) WBC 22.3(H) 3.8 - 9.9 K/cumm Comment:Testing performed by : [address] [address] Hgb 8.0(L) 11.9 - 15.5 g/dL [facility] Comment:Testing performed by : [address] [address] Hct 24.4(L) 35.6 - 45.5 % [facility] Comment:Testing performed by : [address], [address] Plt 229 150 - 400 K/cumm [facility] Comment:Testing performed by : [address] [address] MPV 10.4 9.1 - 12.3 fL [facility] Comment:Testing performed by : [address], [address] RBC 2.58(L) 3.90 - 5.20 M/cumm [facility] Comment:Testing performed by : [address], [address] MCV 94.6 81.3 - 96.4 fL [facility] Comment:Testing performed by : [address], [address] MCH 31.0 27.1 - 33.3 pg [facility] Comment:Testing performed by : [address], [address] MCHC 32.8 32.3 - 35.7 g/dL [facility] Comment:Testing performed by : [address], [address] RDW CV 13.2 11.1 - 14.9 % [facility] Comment:Testing performed by : [address], [address] RDW SD 45.1 35.7 - 48.1 fL [facility] Comment:Testing performed by : [address], [address] NRBC abs 0.00 0.00 - 0.01 K/cumm [facility] Comment:Testing performed by : [address], [address] Blood 10/18/2024 5:10 AM SIZING MACHINE AND DRIER OPERATOR 10/18/2024 5:30 AM SIZING MACHINE AND DRIER OPERATOR us Umair Garcia MD LAB BLOOD ORDERABLES Cris l Result [facility] Department [place] [address] * (ABNORMAL) Comprehensive metabolic panel (10/18/2024 5:10 AM SIZING MACHINE AND DRIER OPERATOR) Sodium 140 135 - 145 mmol/L Comment:Testing performed by : [address], [place]., [address] Potassium, pl 3.6 3.3 - 4.9 mmol/L [facility] Comment:Testing performed by : [address] [address] Chloride 106 97 - 110 mmol/L [facility] Comment:Testing performed by : [address], [place]., [address] CO2 26 22 - 32 mmol/L [facility] Comment:Testing performed by : [address], [place]., [address] Anion gap 8 2 - 15 mmol/L [facility] Comment:Testing performed by : [address] [address] BUN 6 6 - 25 mg/dL [facility] Comment:Testing performed by : [address], [place]., [address] Creatinine 0.80 0.60 - 1.10 mg/dL [facility] Comment:Testing performed by : [address] [address] Glucose 122 70 - 199 mg/dL [facility] [...] was last revised 2022. Testing performed by: [address], [place]., [address] Calcium 7.6(L) 8.5 - 10.3 mg/dL [facility] Comment:Testing performed by : [address] [address] Bilirubin, total <0.2 0.1 - 1.2 mg/dL [facility] Comment:Testing performed by : [address] [address] Protein, pl 5.4(L) 6.5 - 8.5 g/dL [facility] Comment:Testing performed by : [address] [address] Albumin 3.2(L) 3.5 - 5.0 g/dL [facility] Comment:Testing performed by : [address], [facility], [address] Alk phos 106 40 - 130 Units/L [facility] Comment:Testing performed by : [address], [facility], [address] ALT 10 7 - 45 Units/L [facility] Comment:Testing performed by : [address], [address] AST 15 10 - 45 Units/L [facility] Comment:Testing performed by : [address], [address] Blood 10/18/2024 5:10 AM SIZING MACHINE AND DRIER OPERATOR 10/18/2024 5:30 AM SIZING MACHINE AND DRIER OPERATOR us Umair Garcia MD LAB BLOOD ORDERABLES Cris l Result Performing Organization Address City/State/[facility] Co [place] Phone Number [address] Department [place] [address] * Surgical pathology (10/17/2024 2:54 PM SIZING MACHINE AND DRIER OPERATOR) Tissue specimen (specimen) (Gastric/Stomach biopsy) 10/17/2024 2:54 PM SIZING MACHINE AND DRIER OPERATOR Narrative PATHOLOGY [facility] - 10/20/2024 3:35 PM SIZING MACHINE AND DRIER OPERATOR [facility] Department of Pathology [address] [place] [address] Note to Patients: This report may contain [...] : 1960 (Age: 64) Gender: F Address: [address] [place] [address] Hospital #: [id number] Service: Medical Location: Patient Type: [facility] INPATIENT Taken: 10/17/2024 Received: 10/17/2024 [...] Clinical History: The patient is a 64-year-old [id number]|2025-01-03 12:37:00|2025-01-03 12:37:00|PM.IMPN||||"Progress Note: A&P Assessment and Plan (1) Acute hypotension: Code(s): I95.9 - Hypotension, unspecified Status: Acute Assessment and Plan: ED discussed case with ICU attending recommending fluid bolus at this time, CT abdomen, and stool testing Patient accepted to ICU Sepsis bolus CT showing some colitis IV cefepime, Flagyl Blood cultures pending Stool cultures pending Lactic acid 1.1 (2) Acute renal failure (ARF): Code(s): N17.9 - Acute kidney failure, unspecified Status: Acute Assessment and Plan: Likely due to acute dehydration from diarrhea Aggressive fluid hydration Nephrology consult pending recommendations Repeat labs in a.m. Urine study (3) Acute dehydration: Code(s): E86.0 - Dehydration Status: Acute Assessment and Plan: See above (4) Acute hyponatremia: Code(s): E87.1 - Hypo-osmolality and hyponatremia Status: Acute Assessment and Plan: Repeat sodium after fluid bolus stable Nephrology consulted (5) Anemia: Code(s): D64.9 - Anemia, unspecified Status: Acute Assessment and Plan: Repeat hemoglobin at 8:00 p.m. Slight drop in hemoglobin likely due to delusional Transfuse for hemoglobin less than 7 or symptomatic No need for transfusion at this time (6) Benign hypertension: Code(s): I10 - Essential (primary) hypertension Status: Acute Assessment and Plan: Hold antihypertensives now due to severe hypotension Plan 64 y/o female presented with SUDHA and hyponatremia with complaint of persistent diarrhea 2/2 Giardia infection, this may have dehydration resulting in SUDHA and hyponatremia, patient is being hydrated, her kidney function is improving as well as her sodium levels, patient/s frequency of diarrhea, had improved, however, again today patient stats frequency diarrhea is increasing, her white counts are climbing but so far all the stool tests are negative, patient is seen by GI and suspect most likely 2/2 cancer medications she had been treated. will monitor and follow. patient and family denied any foreign travel and not sure how she came in contact with Giardia. so far all stool culture are negative, will continue to monitor Subjective Date/time seen: 01/03/25 12:37 Interval history: Abnormal lab work H&P-Narrative: 64-year-old female found to have SUDHA and hyponatremia by her PCP sent to the hospital for further evaluation. she had giardia and was treated but still having diarrhea and not drinking enough fluids. Patient states that she has not and vomiting in she is taking in food okay. Per the nursing she has had a bowel movement about every hour. C diff is negative, other stool samples pending. Patient denies abdominal pain at this time, fever or chills. In the ED her lab work showed anemia at 10.8 which is around baseline, sodium of 128, carbon dioxide 12, anion gap 18, BUN of 37, creatinine of 4.45 with baseline being around 1.1. Due to hypotension not responding to aggressive fluid bolus patient is being sent to ICU for acute dehydration and SUDHA. 64 y/o female presented with SUDHA and hyponatremia with complaint of persistent diarrhea 2/2 Giardia infection, this may have dehydration resulting in SUDHA and hyponatremia, patient is being hydrated, her kidney function is improving as well as her sodium levels, patient/s frequency of diarrhea, had improved, however, again today patient stats frequency diarrhea is increasing, her white counts are climbing but so far all the stool tests are negative, patient is seen by GI and suspect most likely 2/2 cancer medications she had been treated. will monitor and follow. patient and family denied any foreign travel and not sure how she came in contact with Giardia. so far all stool culture are negative, will continue to monitor Review of Systems Review of Systems: 12 systems were reviewed and are negative except for as per HPI. All systems reviewed & are unremarkable except as noted in HPI and below (HPI) Exam Narrative: Patient is comfortable, NAD HEENT: eyes are clear and none icteric LUNGS:CTA HEART: RR S1S2 ABD: BS+, Soft and nontender Lower extremities: no edema SKIN: nonjaundiced Neuro: grossly intact. Objective Data Vital Signs Vital Signs: Vital Signs - 24 hr 01/02/25 14:00 01/02/25 16:00 01/02/25 20:00 Temperature 36.4 C Pulse Rate 81 71 97 Respiratory Rate 16 18 Blood Pressure 144/87 H Pulse Oximetry 100 98 Oxygen Delivery Room Air 01/02/25 20:00 01/02/25 22:00 01/03/25 00:00 Temperature 37.5 C Pulse Rate 97 97 80 Respiratory Rate 18 Blood Pressure 152/95 H Pulse Oximetry 98 Oxygen Delivery 01/03/25 04:00 01/03/25 06:00 01/03/25 08:32 Temperature 36.7 C 36.2 C L Pulse Rate 71 81 88 Respiratory Rate 18 16 Blood Pressure 131/61 135/72 Pulse Oximetry 98 98 Oxygen Delivery 01/03/25 08:35 01/03/25 08:35 01/03/25 12:00 Temperature Pulse Rate 88 87 69 Respiratory Rate 16 Blood Pressure Pulse Oximetry 98 Oxygen Delivery Room Air Intake/Output Intake/Output: Intake & Output 12/31/24 01/01/25 01/02/25 01/03/25 23:59 23:59 23:59 23:59 Intake Total 2970 2300 1660 820 Output Total 1800 1725 2150 2600 Balance 1170 427 [phone] Meds/Results Medications: Active Medications Generic Name Dose Route Start Last Admin Trade Name Freq PRN Reason Stop Dose Admin Acetaminophen 650 mg 12/29/24 13:12 01/03/25 08:38 Acetaminophen 325 Mg Tablet PO 650 mg Q4H PRN Administration Mild Pain (1-3) or Fever Calcium Carbonate 500 mg 12/31/24 09:00 01/03/25 08:35 Calcium Carbonate (Oscal) 500 Mg Tablet PO 01/30/25 08:59 500 mg BID LISSETTE Administration Cholestyramine Resin 4 gm 01/02/25 10:00 01/03/25 10:32 Cholestyramine Light 4 Gm Powd.Pack PO 4 gm QAM@1000 LISSETTE Administration Enoxaparin Sodium 40 mg 01/01/25 09:00 01/03/25 08:35 Enoxaparin 40 Mg/0.4 Ml Syringe SUB-Q 40 mg DAILY LISSETTE Administration Folic Acid 1 mg 12/31/24 09:00 01/03/25 08:35 Folic Acid 1 Mg Tablet PO 1 mg DAILY LISSETTE Administration Ceftriaxone Sodium 1 gm in 50 mls @ 100 mls/hr 12/30/24 11:00 01/03/25 10:33 Rocephin 1 Gm/Ns 50 Ml IVPB 100 mls/hr Q24H LISSETTE Administration Metronidazole 500 mg in 100 mls @ 100 mls/hr 12/30/24 11:00 01/03/25 11:21 Flagyl 500 Mg/Iso Soln 100 Ml IVPB 100 mls/hr Q8H LISSETTE Administration Loperamide HCl 2 mg 01/01/25 09:00 01/03/25 12:22 Loperamide Hcl 2 Mg Capsule PO 2 mg TID LISSETTE Administration Pantoprazole Sodium 40 mg 12/31/24 09:00 01/03/25 08:35 Pantoprazole 40 Mg Tablet PO 40 mg Q12HR LISSETTE Administration Saccharomyces Boulardii 250 mg 12/31/24 17:00 01/03/25 08:35 Saccharomyces Boulardii 250 Mg Capsule PO 250 [...] decompressed, limiting its evaluation Labs Labs: Laboratory Results - last 24 hr 01/03/25 04:57 WBC 11.9 H RBC 2.42 L Hgb 7.5 L Hct 23.4 L MCV 96.7 MCH 31.0 MCHC 32.1 RDW 14.6 H Plt Count 333 MPV 8.6 Immature Gran % (Auto) 6.1 H Neut % (Auto) 64.2 Lymph % (Auto) 11.0 L [place] % (Auto) 16.3 H Eos % (Auto) 1.6 Baso % (Auto) 0.8 Lymph # (Auto) 1.31 [place] # (Auto) 1.9 H Eos # (Auto) 0.2 Baso # (Auto) 0.1 Abs Immat Gran (auto) 0.72 H Absolute Neuts (auto) 7.6 H Absolute Nucleated RBC 0.000 Band Neutrophils % Not Reportable Nucleated RBC % 0.0 Platelet Estimate Adequate Large Platelets Present Hypochromasia 1+ Poikilocytosis 1+ Anisocytosis 1+ Ovalocytes 1+ Carmelita Cells 1+ Schistocytes None seen Sodium 133 L Potassium 3.3 L Chloride 102 Carbon Dioxide 22 Anion Gap 9 BUN 5 L Creatinine 1.05 H Estim Creat Clear Calc 41 Estimated GFR 52 L Glucose 95 Calcium 7.8 L Phosphorus 2.8 Magnesium 1.6 Total Bilirubin < 0.1 L AST 27 ALT 10 Alkaline Phosphatase 99 Total Protein 6.0 L Albumin 3.3 L Quality VTE Prophylaxis VTE prophylaxis: pharmacologic ordered"
--- OUTSIDE RECORDS SUMMARY | 2024-12-29 12:18 | XMS_ITS | Referral Summary ---
Author Organization [facility] Address [address] [place] [address] Care Team Providers Care Sales Agent Financial Report Service Name Role Phone Amy Saldivar DO Primary Care Provider [phone] Encounters Date Type Department Care Team Description 5 9:43 AM CDT Anesthesia Event [facility] [address] [place] [phone] Sylvia Alves MD 5 9:30 AM CDT - 5 10:00 AM CDT Surgery [facility] [address] [place] [address] Dawood Dueñas MD COLONOSCOPY 5 8:35 AM CDT - 5 10:57 AM CDT Hospital Encounter [facility] [address] [place] [phone] Dawood Dueñas MD Discharge Disposition: Discharge to home or self care 5 9:30 AM CDT Office Visit [facility] Gastroenterology at [address] [place] [address] [phone] Laurence Patrick NP Gastrointestinal hemorrhage, unspecified gastrointestinal hemorrhage type 5 Telephone [facility] Gastroenterology at [address] [place] [address] [phone] Enrike Camacho MD 5 5:25 PM CONTACT OFFICER - 5 10:39 AM CONTACT OFFICER Hospital Encounter [facility] 4 Med S[address] [place] [address] [phone] Anthony Kang MD Brother, MD Jose Sandoval Manuel Emilio, MD Visconti, John L., Gastrointestinal hemorrhage, unspecified gastrointestinal hemorrhage type (Primary Dx); Drug and toxin-induced diarrhea; Chemotherapy-induced neutropenia; Hematemesis, unspecified whether nausea present Discharge Disposition: Discharge to home or self care 5 2:39 PM CONTACT OFFICER Anesthesia Event [facility] Endo [address] [place] [address] Dario Soria MD 5 2:00 PM CONTACT OFFICER - 5 2:40 PM [facility]o [address] [place] [address] Brain Rucker ra, MD ESOPHAGOGASTRODUODENOSCOPY BIOPSY 5 2:00 PM CONTACT OFFICER - 5 2:30 PM [facility] [address] [place] [address] Brain Rucker ra, MD Not Performed COLONOSCOPY [...] Former Cigarettes Tobacco Cessation:Counseling Given: Not Answered [facility] Utilities Answer Date Recorded In the past 12 months has [employer], gas, oil, or water [employer] threatened to shut off services in your [...] often do you attend chur ch or anglican services? Never 10/13/2024 Do you belong to any clubs o r organizations such as spiritism groups, unions, fraternal or athletic groups, or [...] any time in the past 12 m [facility], were you homeless or [...] on file Legal Sex Female 12:32 PM CONTACT OFFICER Gender Identity Not on file Sexual Orientation [...] on file Medical Devices Implanted Type Area Legal Billing Coordinator Device Identifier Shelf Expiration Date Model / Serial / Lot Port Right: Chest Wall Procedures Procedure Name Priority Date/Time Associated Diagnosis Comments COLONOSCOPY 12/07/2024 9:45 AM CDT Gastrointestinal hemorrhage, unspecified gastrointestinal hemorrhage type COLONOSCOPY 12/07/2024 9:43 AM CDT ECG 12-LEAD Routine 12/07/2024 9:05 AM CDT EGFR Routine 10/18/2024 5:10 AM CONTACT OFFICER DIFFERENTIAL AUTO Routine 10/18/2024 5:10 AM CONTACT OFFICER COMPREHENSIVE METABOLIC PANEL Routine 5:10 AM CONTACT OFFICER CBC WITH AUTO DIFFERENTIAL Routine 10/18 5:10 AM CONTACT OFFICER SURGICAL PATHOLOGY Routine 10/17/2024 2:54 PM CONTACT OFFICER Hematemesis, unspecified whether nausea present ESOPHAGOGASTRODUODENOSCOPY BIOPSY 10/17/2024 2:41 PM CONTACT OFFICER Hematemesis, unspecified whether nausea present EGD 10/17/2024 2:38 PM CONTACT OFFICER EGFR Routine 10/17/2024 4:31 AM CONTACT OFFICER DIFFERENTIAL AUTO Routine 10/17/2024 4:31 AM CONTACT OFFICER COMPREHENSIVE METABOLIC PANEL Routine 4:31 AM CONTACT OFFICER CBC WITH AUTO DIFFERENTIAL Routine 10/17 4:31 AM CONTACT OFFICER EGFR Routine 10/16/2024 4:02 AM CONTACT OFFICER DIFFERENTIAL AUTO Routine 10/16/2024 4:02 AM CONTACT OFFICER COMPREHENSIVE METABOLIC PANEL Routine 4:02 AM CONTACT OFFICER CBC WITH AUTO DIFFERENTIAL Routine 10/16 4:02 AM CONTACT OFFICER STOOL CULTURE Routine 10/15/2024 4:01 PM CONTACT OFFICER HIV 1/2 ANTIBODY PLUS P24 ANTIGEN Routine 10/15/2024 8:38 AM CONTACT OFFICER MAGNESIUM Routine 10/15/2024 4:36 AM CONTACT OFFICER EGFR Routine 10/15/2024 4:36 AM CONTACT OFFICER DIFFERENTIAL AUTO Routine 10/15/2024 4:36 AM CONTACT OFFICER COMPREHENSIVE METABOLIC PANEL Routine 4:36 AM CONTACT OFFICER CBC WITH AUTO DIFFERENTIAL Routine 10/15 4:36 AM CONTACT OFFICER CBC WITHOUT DIFFERENTIAL STAT 025 9:36 AM CONTACT OFFICER MICROBIOLOGY CALLBACK Routine 10/13/2024 12:31 PM CONTACT OFFICER CRYPTOSPORIDIUM AND GIARDIA ANTIGEN ASSAY Routine 10/13/2024 12:31 PM CONTACT OFFICER NOROVIRUS PCR Routine 10/13/2024 12:31 PM CONTACT OFFICER STOOL CULTURE Routine 10/13/2024 12:31 PM CONTACT OFFICER CRP (ACUTE PHASE) Add-On 10/13/2024 10:16 AM CONTACT OFFICER ERYTHROCYTE SEDIMENTATION RATE Add-On 0 10/13/2024 10:16 AM CONTACT OFFICER EGFR Routine 10/13/2024 4:49 AM CONTACT OFFICER DIFFERENTIAL AUTO Routine 10/13/2024 4:49 AM CONTACT OFFICER FERRITIN Routine 10/13/2024 4:49 AM CONTACT OFFICER IRON PROFILE W/ IBC Routine 10/13/2024 4:49 AM CONTACT OFFICER CBC WITH AUTO DIFFERENTIAL Routine 10/13 4:49 AM CONTACT OFFICER BASIC METABOLIC PANEL Routine 10/13/2024 4:49 AM CONTACT OFFICER PROTIME-INR Routine 10/12/2024 6:25 PM CONTACT OFFICER HEMOGLOBIN AND HEMATOCRIT STAT 2024 5:42 PM CONTACT OFFICER B ABO / RH CONFIRMATION TESTING STAT 10/12/2024 5:[address] CHEST PE ABDOMEN PELVIS W CONTRAST ED 10/12/2024 3:27 PM CONTACT OFFICER URINALYSIS AND REFLEX TO MICROSCOPIC AND CULTURE STAT 10/12/2024 3:01 PM CONTACT OFFICER MANUAL DIFFERENTIAL STAT 10/12/2024 10:11 AM CONTACT OFFICER EGFR STAT 10/12/2024 10:11 AM CONTACT OFFICER DIFFERENTIAL AUTO STAT 10/12/2024 10:11 AM CONTACT OFFICER ANTIBODY SCREEN STAT 10/12/2024 10:11 AM CONTACT OFFICER ABO/RH STAT 10/12/2024 10:11 AM CONTACT OFFICER TYPE AND SCREEN STAT 10/12/2024 10:11 AM CONTACT OFFICER COMPREHENSIVE METABOLIC PANEL STAT 10:11 AM CONTACT OFFICER CBC WITH AUTO DIFFERENTIAL STAT 10/12 10:11 AM CONTACT OFFICER from Last 3 Months Results * Colonoscopy (12/07/2024 9:43 AM CDT) Anatomical Region Laterality Modality Other Narrative Procedure Note Dawood Dueñas MD - 12/07/2024 9:43 AM CDT [facility] ENDOSCOPY Patient Name: Regi Snyder [...] On: 12/07/2024 9:43 AM Recognized by the [employer] for promoting quality in endoscopy Dawood Dueñas MD ENDOSCOPY PROCEDURES Cris l Result * ECG 12 lead (12/07/2024 9:05 AM CDT) Ventricular Rate EKG/Min 74 BPM [facility] Atrial Rate 74 BPM [facility] HI-Interval (MSEC) 138 ms [facility] QRS-Interval (MSEC) 72 ms [facility] QT-Interval (MSEC) 434 ms [facility] QTc 481 ms [facility] P [place] 60 degrees [facility] R [place] 25 degrees [facility] T [place] 55 degrees [facility] Diagnosis Normal sinus rhythm Nonspecific ST abnormality Abnormal ECG No previous ECGs available Confirmed by CONNOR MÉNDEZ M.D. ([id number]) on 12/08/2024 7:19:04 AM [facility] 12/07/2024 9:05 AM CDT 12/08/2024 7:19 AM CDT Sylvia Alves MD ECG ORDERABLES Final Result [facility] * eGFR (10/18/2024 5:10 AM CONTACT OFFICER) eGFR 81 >=60 mL/min/1. 73 m2 Comment: [...] was last reviewed 2021. Testing performed by: [address] [address] Blood 10/18/2024 5:10 AM CONTACT OFFICER 10/18/2024 5:30 AM CONTACT OFFICER us Umair Garcia MD LAB BLOOD ORDERABLES Cris matias Result [facility] [address] [facility] Department of Laboratories [place], [place] [id number] * (ABNORMAL) Differential, auto (10/18/2024 5:10 AM CONTACT OFFICER) Pathologist [facility] Neutrophil abs 18.4(H) 1.5 - 6.5 K/cumm Comment:Testing performed by : [address] [address] Imm gran abs 0.4(H) 0.0 - 0.1 K/cumm QASIM TREVINO Comment:Testing performed by : [address] [address] Lymphocyte abs 1.5 0.8 - 3.3 K/cumm QASIM Comment:Testing performed by : [address] [address] Monocyte abs 1.8(H) 0.2 - 0.8 K/cumm [facility] Comment:Testing performed by : [address] [address] Eosinophil abs 0.2 0.0 - 0.5 K/cumm QASIM Comment:Testing performed by : [address] [address] Basophil abs 0.0 0.0 - 0.1 K/cumm [facility] Comment:Testing performed by : [address] [address] Neutrophil pct 82.6 % [facility] Comment: Interpretive Data Percent cell count reference ranges are not reported, since discordance with absolute values may lead to misinterpretation of CBC data. Current Interpretive Data was last revised on 2017. Testing performed by: [address] [address] Imm gran pct 1.7 % [facility] Comment: Interpretive Data Percent cell count reference ranges are not reported, since discordance with absolute values may lead to misinterpretation of CBC data. Current Interpretive Data was last revised on 2017. Testing performed by: [address] [address] Lymphocyte pct 6.7 % [facility] Comment: Interpretive Data Percent cell count reference ranges are not reported, since discordance with absolute values may lead to misinterpretation of CBC data. Current Interpretive Data was last revised on 2017. Testing performed by: [address] [address] Monocyte pct 8.0 % [facility] Comment: Interpretive Data Percent cell count reference ranges are not reported, since discordance with absolute values may lead to misinterpretation of CBC data. Current Interpretive Data was last revised on 2017. Testing performed by: [address] [address] Eosinophil pct 0.8 % [facility] Comment: Interpretive Data Percent cell count reference ranges are not reported, since discordance with absolute values may lead to misinterpretation of CBC data. Current Interpretive Data was last revised on 2017. Testing performed by: [address] [address] Basophil pct 0.2 % [facility] Comment: Interpretive Data Percent cell count reference ranges are not reported, since discordance with absolute values may lead to misinterpretation of CBC data. Current Interpretive Data was last revised on 2017. Testing performed by: [address] [address] Blood 10/18/2024 5:10 AM CONTACT OFFICER 10/18/2024 5:30 AM CONTACT OFFICER us Umair Garcia MD LAB BLOOD ORDERABLES Cris l Result [facility] [address] [facility] Department [place] [address] * (ABNORMAL) CBC with auto differential (10/18/2024 5:10 AM CONTACT OFFICER) WBC 22.3(H) 3.8 - 9.9 K/cumm Comment:Testing performed by : [address] [address] Hgb 8.0(L) 11.9 - 15.5 g/dL [facility]IM Comment:Testing performed by : [address] [address] Hct 24.4(L) 35.6 - 45.5 % [facility] Comment:Testing performed by : [address] [address] Plt 229 150 - 400 K/cumm Q[facility]IM Comment:Testing performed by : [address] [address] MPV 10.4 9.1 - 12.3 fL [facility] Comment:Testing performed by : [address] [address] RBC 2.58(L) 3.90 - 5.20 M/cumm [facility] Comment:Testing performed by : [address] [address] MCV 94.6 81.3 - 96.4 fL [facility] Comment:Testing performed by : [address] [address] MCH 31.0 27.1 - 33.3 pg [facility]IM TREVINO Comment:Testing performed by : [address] [address]92 MCHC 32.8 32.3 - 35.7 g/dL [facility] TREVINO Comment:Testing performed by : [address] [address] RDW CV 13.2 11.1 - 14.9 % [facility] TREVINO Comment:Testing performed by : [address] [address] RDW SD 45.1 35.7 - 48.1 fL [facility] TREVINO Comment:Testing performed by : [address] [address] NRBC abs 0.00 0.00 - 0.01 K/cumm [facility] TREVINO Comment:Testing performed by : [address] [address] Blood 10/18/2024 5:10 AM CONTACT OFFICER 10/18/2024 5:30 AM CONTACT OFFICER us Umair Garcia MD LAB BLOOD ORDERABLES Cris matias Result QASIM [facility] Department [place] [address] * (ABNORMAL) Comprehensive metabolic panel (10/18/2024 5:10 AM CONTACT OFFICER) Sodium 140 135 - 145 mmol/L Comment:Testing performed by : [address] [address] Potassium, pl 3.6 3.3 - 4.9 mmol/L [facility] TREVINO Comment:Testing performed by : [address] [address] Chloride 106 97 - 110 mmol/L [facility] TREVINO Comment:Testing performed by : [address] [address] CO2 26 22 - 32 mmol/L [facility] TREVINO Comment:Testing performed by : [address] [address] Anion gap 8 2 - 15 mmol/L [facility] Comment:Testing performed by : [address] [address] BUN 6 6 - 25 mg/dL [facility] Comment:Testing performed by : [address] [address] Creatinine 0.80 0.60 - 1.10 mg/dL [facility] Comment:Testing performed by : [address] [address] Glucose 122 70 - 199 mg/dL [facility] Comment: Interpretive Data Fasting glucose >/= 126 [...] was last revised 2022. Testing performed by: [address] [address] Calcium 7.6(L) 8.5 - 10.3 mg/dL [facility] Comment:Testing performed by : [address] [address] Bilirubin, total <0.2 0.1 - 1.2 mg/dL [facility] Comment:Testing performed by : [address] [address] Protein, pl 5.4(L) 6.5 - 8.5 g/dL [facility] Comment:Testing performed by : [address] [address] Albumin 3.2(L) 3.5 - 5.0 g/dL [facility] Comment:Testing performed by : [address] [address] Alk phos 106 40 - 130 Units/L [facility] Comment:Testing performed by : [address] [address] ALT 10 7 - 45 Units/L [facility]IM TREVINO Comment:Testing performed by : [facility], [address] [place] [address]., [address] AST 15 10 - 45 Units/L [facility]IM Comment:Testing performed by : [facility], [address] [place] [address]., [address] Blood 10/18/2024 5:10 AM CONTACT OFFICER 10/18/2024 5:30 AM CONTACT OFFICER us Umair Garcia MD LAB BLOOD ORDERABLES Cris l Result Q[facility]IM [address] Department [place] [address] * Surgical pathology (10/17/2024 2:54 PM CONTACT OFFICER) Tissue specimen (specimen) (Gastric/Stomach biopsy) 10/17/2024 2:54 PM CONTACT OFFICER Narrative PATHOLOGY [facility] - 10/20/2024 3:35 PM CONTACT OFFICER [facility] Department of Pathology [address] [place] [address] Note to Patients: This report may contain [...] 1960 (Age: 64) Gender: F Address: [address] [place] [address] Hospital #: [id number] Service: Medical Location: Patient Type: [facility] INPATIENT Taken: 10/17/2024 Received: 10/17/2024 Accessioned: [...] dimension. Entirely submitted in A1. Jar 0. [facility]/10/19/2024 08:35 PRAVEEN Zuluaga PA([facility])CM Microscopic slide review and interpretation for this case was performed at [facility], Department of Surgical Pathology, [address] [facility], [place] [id number] [address] CLIA # [id number] us Brain Rucker MD LAB PATHOLOGY ORDER CARLOS Final Result PATHOLOGY [facility] * EGD (10/17/2024 2:38 PM CONTACT OFFICER) Anatomical Region Laterality Modality Other Narrative [id number]|2025-01-02 10:00:00|2025-01-02 10:00:00|PM.PNNEP||||"Progress Note: A&P Assessment and Plan (1) Acute [...] Acidosis, unspecified Status: Acute Assessment and Plan: resolved due to acute kidney injury/acute renal failure in conjunction from GI losses (diarrhea) follow trend of CO2 (5) Hyponatremia: Code(s): E87.1 - Hypo-osmolality and hyponatremia Status: Chronic Assessment and Plan: stable if not improved has been present as far back as [...] follow stool cultures - negative to date on Imodium and Questran empirically on antibiotics (7) UTI (urinary tract [...] diagnosis currently on chemotherapy follows with Hem/Onc Not much else to add from renal perspective -- will continue to follow from a distance. Subjective Date/time seen: 01/02/25 10:00 Interval history: Follow-up for acute kidney injury/acute renal failure on chronic kidney disease. Renal function/creatinine continues to improve if not back to baseline by recent labs; diarrhea seems to be less with use of Imodium and Questran; no other acute issues/events overnight or earlier this morning; no apparent distress noted at the time of my visit. Exam Narrative: General: elderly but WD/WN female in NAD Heart: normal S1 and S2; no rub Lungs: clear to auscultation Abdomen: soft, nontender, nondistended, positive bowel sounds Extremities: no cyanosis or clubbing; no edema Skin: warm and dry Objective Data Vital Signs Vital Signs: Vital Signs Temp Pulse Resp BP Pulse Ox O2 Del Method 01/02/25 08:38 16 99 Room Air 01/02/25 08:00 85 01/02/25 05:13 98.8 F 72 16 120/67 99 01/02/25 04:00 66 01/02/25 00:00 94 01/01/25 21:47 98.7 F 82 16 117/53 L 93 01/01/25 20:00 94 01/01/25 20:00 82 16 93 Room Air 01/01/25 16:00 100 Intake/Output Intake/Output: Intake & Output 12/30/24 12/31/24 01/01/25 01/02/25 23:59 23:59 23:59 23:59 Intake Total 4430 2970 2300 840 Output Total 2450 1800 1725 1300 Balance 1980 1170 575 -460 Meds/Results Medications: Active Medications Generic Name Dose Route Start Last Admin Trade Name Freq PRN Reason Stop Dose Admin Acetaminophen 650 mg 12/29/24 13:12 12/31/24 18:19 Acetaminophen 325 Mg Tablet PO 650 mg Q4H PRN Administration Mild Pain (1-3) or Fever Calcium Carbonate 500 mg 12/31/24 09:00 01/02/25 08:37 Calcium Carbonate (Oscal) 500 Mg Tablet PO 01/30/25 08:59 500 mg BID LISSETTE Administration Cholestyramine Resin 4 gm 01/02/25 10:00 01/02/25 10:02 Cholestyramine Light 4 Gm Powd.Pack PO 4 gm QAM@1000 LISSETTE Administration Enoxaparin Sodium 40 mg 01/01/25 09:00 01/02/25 08:37 Enoxaparin 40 Mg/0.4 Ml Syringe SUB-Q 40 mg DAILY LISSETTE Administration Folic Acid 1 mg 12/31/24 09:00 01/02/25 08:38 Folic Acid 1 Mg Tablet PO 1 mg DAILY LISSETTE Administration Ceftriaxone Sodium 1 gm in 50 mls @ 100 mls/hr 12/30/24 11:00 01/02/25 10:29 Rocephin 1 Gm/Ns 50 Ml IVPB Infused Q24H LISSETTE Infusion Metronidazole 500 mg in 100 mls @ 100 mls/hr 12/30/24 11:00 01/02/25 11:25 Flagyl 500 Mg/Iso Soln 100 Ml IVPB Infused Q8H LISSETTE Infusion Loperamide HCl 2 mg 01/01/25 09:00 01/02/25 13:15 Loperamide Hcl 2 Mg Capsule PO 2 mg TID LISSETTE Administration Pantoprazole Sodium 40 mg 12/31/24 09:00 01/02/25 08:38 Pantoprazole 40 Mg Tablet PO 40 mg Q12HR LISSETTE Administration Saccharomyces Boulardii 250 mg 12/31/24 17:00 01/02/25 08:37 Saccharomyces Boulardii 250 Mg Capsule PO 250 [...] limiting its evaluation Labs Labs: Laboratory Tests 01/02/25 05:10 01/02/25 05:10 Calcium 8.3 L Phosphorus 3.0 Magnesium 1.3 L Total Bilirubin 0.1 L AST 28 ALT 12 Alkaline Phosphatase 60 Total Protein 6.0 L Albumin 3.5"
--- OUTSIDE RECORDS SUMMARY | 2024-12-29 12:18 | XMS_ITS | Encounter Summary ---
Author Organization [facility] [employer] [facility] Address [address] [place] [address] Care Team Providers Care Bio Medical Technician Name Role Phone Iraj Spencer MD Primary Care Provider [phone] Encounter Details Date Type Department Care Team (Late st Contact Info) Description 12/28/2024 Orders Only [facility] Oncology and Hematology - [place] [address] [facility] [address] [place] [address] Abdirashid Acosta MD [address] [facility] [address] [place] [address] Malignant neoplasm of lung, unspecified [...] (CMS/HCC) documented in this encounter Care Teams Bio Medical Technician Relationship Specialty Start Date End Date Iraj Spencer MD [address] [facility] [place] [address] PCP - General Family Practice 12/12/23 documented as of this encounter
--- OUTSIDE RECORDS SUMMARY | 2024-12-29 12:18 | XMS_ITS | Encounter Summary ---
Author Organization [facility] [employer] [facility] Address [address] [place] [address] Care Team Providers Care Health Management Consultant Name Role Phone Iraj Spencer MD Primary Care Provider [phone] Reason for Visit * Reason Comments Chemotherapy Follow Up Encounter Details Date Type Department Care Team (Late st Contact Info) Description 12/29/2024 10:15 AM CDT Office Visit [facility] Oncology and Hematology - [place] [address] [facility] [address] [place] [address] Abdirashid Acosta MD [address] [facility] [address] [place] [address] Malignant neoplasm of lung, unspecified [...] Primary documented in this encounter Care Teams Health Management Consultant Relationship Specialty Start Date End Date Iraj Spencer MD [facility] [facility] [place] [phone] PCP - General Family Practice 12/12/23 documented as of this encounter
--- OUTSIDE RECORDS SUMMARY | 2024-12-29 12:18 | XMS_ITS | Clinical Summary ---
Author Organization [facility] Address [address] [place] [address] [place] [address] Care Team Providers Care Coffee Roaster Helper Name Role Phone Iraj Spencer MD Primary Care Provider [phone] Allergies No known active allergies Medications losartan [...] Description 12/29/2024 10:15 AM CDT Office Visit [facility] Hematology - [address] [place] [address] Abdirashid Acosta MD Malignant neoplasm of lung, unspecified laterality, unspecified part of lung (CMS/HCC) (Primary Dx) 12/29/2024 Refill [facility] - [address] [place] [address] Abdirashid Acosta MD 12/28/2024 Orders Only [facility]ology - [address] [place] [address] Abdirashid Acosta MD Malignant neoplasm of lung, unspecified laterality, unspecified part of lung (CMS/HCC) 12/23/2024 Orders Only [facility]ematology - [address] [place] [id number] Abdirashid Acosta MD 12/14/2024 Orders Only [facility]ematology - [address] Abdirashid Acosta MD Malignant neoplasm of lung, unspecified laterality, unspecified part of lung (CMS/HCC) 12/11/2024 Orders Only [facility]ematology - [address] Abdirashid Acosta MD 12/09/2024 Orders Only [facility] Hematology - [address] Abdirashid Acosta MD 12/08/2024 8:30 AM CDT Office Visit [facility]ology - [address] Abdirashid Acosta MD Malignant neoplasm of lung, unspecified laterality, unspecified part of lung (CMS/HCC) (Primary Dx) 12/07/2024 Orders Only [facility]ology - [address] [place] [id number] Abdirashid Acosta MD Need for hepatitis B screening test (Primary Dx) 11/30/2024 Orders Only [facility] Hematology - [address] [place] [id number] Abdirashid Acosta MD Malignant neoplasm of lung, unspecified laterality, unspecified part of lung (CMS/HCC) 11/27/2024 Refill [facility] Hematology - [address] [place] [id number] Abdirashid Acosta MD 11/18/2024 Orders Only [facility] Oncology and Hematology - [address] [place] [address] Abdirashid Acosta MD 11/16/2024 Orders Only [facility]ematology - [address] [place] [address] Abdirashid Acosta MD Malignant neoplasm of lung, unspecified laterality, unspecified part of lung (CMS/HCC) 11/11/2024 External Device Data STL ABSTRACTION Provider, Abstract 11/04/2024 Orders Only [facility] Oncology and Hematology - [address] [place] [address] Abdirashid Acosta MD 11/02/2024 Orders Only [facility] Oncology and Hematology - [address] [place] [address] Abdirashid Acosta MD Malignant neoplasm of lung, unspecified laterality, unspecified part of lung ([facility]/HCC) 10/31/2024 External Device Data STL ABSTRACTION Provider, Abstract 10/30/2024 External Device Data STL ABSTRACTION Provider, Abstract 10/28/2024 Telephone [facility]cology and Hematology - [address] [place] [address] Abdirashid Acosta MD Lab Results 10/28/2024 Orders Only [facility] Oncology and Hematology - [address] [place] [address] Abdirashid Acosta MD 10/27/2024 External Device Data STL ABSTRACTION Provider, Abstract 10/27/2024 Orders Only [facility] Oncology and Hematology - [address] [place] [address] Abdirashid Acosta MD 10/27/2024 Telephone [facility] Oncology and Hematology - [address] [place] [address] Abdirashid Acosta MD Iron Studies 10/20/2024 1:15 PM MOLD CAPPER HELPER Office Visit [facility] Hematology - [address] Abdirashid Acosta MD Malignant neoplasm of lung, unspecified laterality, unspecified part of lung (CMS/HCC) (Primary Dx); Anemia due to chemotherapy 10/19/2024 Orders Only [facility] Hematology - [address] Abdirashid Acosta MD Malignant neoplasm of lung, unspecified laterality, unspecified part of lung (CMS/HCC) 10/16/2024 Telephone [facility] Hematology - [address] Abdirashid Acosta MD Patient Update 10/14/2024 External Device Data STL ABSTRACTION Provider, Abstract 10/13/2024 External Device Data STL ABSTRACTION Provider, Abstract 10/12/2024 Telephone [facility] Hematology - [address] [place] [id number] Abdirashid Acosta MD Diarrhea 10/05/2024 Orders Only [facility] Hematology - [address] Abdirashid Acosta MD Malignant neoplasm of lung, unspecified laterality, unspecified part of lung (CMS/HCC) 10/01/2024 Orders Only [facility] Oncology and Hematology - [address] Abdirashid Acosta MD 10/01/2024 Telephone [facility] Oncology and Hematology - [address] Abdirashid Acosta MD Lab results 10/01/2024 Telephone [facility] Oncology and Hematology - [address] [place] [id number] Abdirashid Acosta MD Diarrhea from Last 3 [...] CBC WITH AUTODIFFERENTIAL Routine 2024 4:16 PM MOLD CAPPER HELPER BASIC METABOLIC PANEL Routine 10/27/2024 9:30 AM MOLD CAPPER HELPER CBC WITH DIFFERENTIAL Routine 10/20/2024 4:29 PM MOLD CAPPER HELPER BASIC METABOLIC PANEL Routine 10/01/2024 10:18 AM MOLD CAPPER HELPER from Last 3 Months Results * CT [...] * CBC WITH AUTODIFFERENTIAL (10/27/2024 4:16 PM MOLD CAPPER HELPER) Blood us Abdirashid cAosta MD HEMATOLOGY ORDERABLES Final Res ult * BASIC METABOLIC PANEL (10/27/2024 9:30 AM MOLD CAPPER HELPER) Only the most recent of2 resultswithin the time period is included. Blood us Abdirashid Acosta MD CHEMISTRY ORDERABLES Final Resu lt * CBC WITH DIFFERENTIAL (10/20/2024 4:29 PM MOLD CAPPER HELPER) Blood us Adbirashid Acosta MD HEMATOLOGY ORDERABLES Final Res ult from Last [address] [place] [address] [place] [id number] Advance Directives For more information, please contact: [phone] Documents on File Type Date Recorded Patient Post Framer Expl anation Advance Directive Living Will 01/09/2024 12:02 PM Advance Directive POA 01/09/2024 12:02 PM Care Teams Coffee Roaster Helper Relationship Specialty Start Date End Date Iraj Spencer MD [facility] [place] [address] PCP - General Family Practice 12/12/23
--- OUTSIDE RECORDS SUMMARY | 2024-12-29 12:18 | XMS_ITS | Encounter Summary ---
Author Organization [facility] [employer] [facility] Address [address] [place] [address] Care Team Providers Care Die Repair Name Role Phone Iraj Spencer MD Primary Care Provider [phone] Reason for Visit * Reason Comments Med Refill Encounter Details Date Type Department Care Team (Late st Contact Info) Description 12/29/2024 Refill [facility] Oncology and Hematology - [address] [facility] [address] [place] [address] Abdirashid Acosta MD [address] [facility] [address] [place] [address] Social History Tobacco Use Types [...] on filedocumented in this encounter Care Teams Die Repair Relationship Specialty Start Date End Date Iraj Spencer MD [address] [place] [address] PCP - General Family Practice 12/12/23 documented as of this encounter
--- NOTE | 2024-12-29 12:32 | PC.NURSE ---
Provider aware of patients BP
--- NOTE | 2024-12-29 12:55 | P.HP_ITS ---
H&P: HPI History of Present Illness Date/Time: 12/29/24 12:55 Chief Complaint: Abnormal lab work Narrative: 64-year-old female found to have SUDHA and hyponatremia by her PCP sent to the hospital for further evaluation. she had giardia and was treated but still having diarrhea and not drinking enough fluids. Patient states that she has not and vomiting in she is taking in food okay. Per the nursing she has had a bowel movement about every hour. C diff is negative, other stool samples pending. Patient denies abdominal pain at this time, fever or chills. In the ED her lab work showed anemia at 10.8 which is around baseline, sodium of 128, carbon dioxide 12, anion gap 18, BUN of 37, creatinine of 4.45 with baseline being around 1.1. Due to hypotension not responding to aggressive fluid bolus patient is being sent to ICU for acute dehydration and SUDHA. Review of Systems Review of Systems: 12 systems were reviewed and are negativ e except for as per HPI. [facility] Past Medical History Medical History (Updated 12/29/24 @ 12:53 by Jory Barcenas III, DO) Benign hypertension Metastasis to bone Adenocarcinoma of left lung, stage 4 Secondary malignant neoplasm of brain Gallstone Asthma Surgical History Surgical History H/O hysterectomy for benign disease Family History Family History Father Alcoholism Mother Cirrhosis Sibling Cancer Diabetes mellitus Depression Heart disease Social History Social History Social History: caffeine- coffee 10 tea 1/2 gallon soda 1 can Smoking packs per day: 2 Smoking cigarettes per day: 40.0 Years smoked: 48 Smoking pack-years: 96.00 Smoking status: Former smoker Tobacco type: cigarettes Second hand tobacco smoke exposure: No Alcohol intake: never Substance use: current Substance use type: marijuana Last use: 12/25/24 Do You Feel Safe in your Home?: Yes Lack of Transportation: No Lack of Food: Never True Current Housing: I Have Housing Concerned About Future Housing: No Difficulty Paying Gas/Electric Bills: No Difficulty Paying for Meds: No Currently Unemployed: No Education: High School Diploma/GED Difficulty w/ Childcare or Family Care: No Living arrangements: with family Occupation/Education: retired Gender identity (if verbalized by the patient): Female Sexual Orientation (if Verbalized by the Patient): Straight or Heterosexual Spiritual care concerns: No Meds Home Medications and Allergies Home Medications Medication Instructions Recorded Confirmed Type dexamethasone 4 mg tablet 4 mg PO BID 01/15/24 12/29/24 History folic acid 1 mg tablet 1 mg PO DAILY 01/15/24 12/29/24 History ondansetron 8 mg disintegrating 8 mg PO Q8H 01/15/24 12/29/24 History tablet tramadol 50 mg tablet 50 mg PO DAILY 03/03/24 12/29/24 History calcium 500 mg tablet 500 mg PO BID 04/08/24 12/29/24 History B12 100 mcg PO DAILY 11/12/24 12/29/24 History Lidocaine-Prilocaine 1 dose topical .[id number] 11/12/24 12/29/24 History ferrous sulfate 325 mg (65 mg 325 mg PO DAILY 11/12/24 12/29/24 History iron) tablet (iron) pantoprazole 40 mg tablet,delayed 40 mg PO BID 11/12/24 12/29/24 History release potassium chloride 20 mEq/15 mL 20 meq PO BID 11/12/24 12/29/24 History oral liquid losartan 100 mg tablet 100 mg PO DAILY #90 tabs 12/09/24 12/29/24 Rx Allergies Allergy/AdvReac Type Severity Reaction Status Date / Time No Known Allergies Allergy Verified 12/29/24 16:17 Vital Signs Vital Signs - 24 hr 12/29/24 11:25 12/29/24 12:31 Temperature 97.4 F L Pulse Rate 89 77 Respiratory Rate 16 13 Blood Pressure 74/52 L 78/50 L Pulse Oximetry 99 100 Exam Narrative: General: Ill appearing, appears older than stated age. HEENT: normocephalic, atraumatic. Mucous membranes dry. EOMI, PERRLA, bilateral sclera anicteric, no conjunctival injection. Neck supple without JVD, lymphadenopathy, or bruit. Respiratory: Demand to ascultation bilaterally. No rales/rhonic/wheezes. Cardiovascular: Regular rate and rhythm, normal S1-S2 upon ascultation. No murmurs, rubs, or clicks. PMI is nondisplaced, capillary refill less than 3 second. Abdomen: Soft, round, no pulsatile masses, nondistended and nontender. No rebound, no guarding. No CVA tenderness, no hepatosplenomegaly. Bowel sounds present to all four quadrants. No high pitch or tinkling sounds, resonant to percussion. Extremities: No cyanosis, clubbing, or edema present. Pulses are palpable 2/2. Active ROM to all four extremities. Neuro: Alert and orientated x 4. PERRLA. Cranial nerves 2-12 intact without focal deficit. Skin: Warm, dry, and intact, without rash, erythema, or lesion. Psych: pleasant, cooperative, normal speech, normal affect, no hallucinations, no dysarthia H&P: Results Labs Labs: Short CBC 12/29/24 Range/Units 11:47 WBC 7.6 (4.5-10.0) K/mm3 Hgb 10.8 L (12.0-15.0) g/dL Hct 32.9 L (37.0-47.0) % Plt Count 657 H (150-375) k/mm3 BMP 12/29/24 11:47 Sodium 128 L Potassium 3.8 Chloride 98 Carbon Dioxide 12 L BUN 37 H Creatinine 4.45 H Glucose 135 H Calcium 8.8 Liver Function 12/29/24 Range/Units 11:47 Total Bilirubin 0.6 (0.2-1.3) mg/dL AST 33 (14-36) U/L ALT 21 (6-35) U/L Alkaline Phosphatase 101 (38-126) U/L Albumin 4.4 (3.5-5.1) g/dL Assessment and Plan Assessment and plan (1) Acute hypotension: Code(s): I95.9 - Hypotension, unspecified Status: Acute Assessment and Plan: ED discussed case with ICU attending recommending fluid bolus at this time, CT abdomen, and stool testing Patient accepted to ICU Sepsis bolus CT showing some colitis IV cefepime, Flagyl Blood cultures pending Stool cultures pending Lactic acid 1.1 (2) Acute renal failure (ARF): Code(s): N17.9 - Acute kidney failure, unspecified Status: Acute Assessment and Plan: Likely due to acute dehydration from diarrhea Aggressive fluid hydration Nephrology consult pending recommendations Repeat labs in a.m. Urine study (3) Acute dehydration: Code(s): E86.0 - Dehydration Status: Acute Assessment and Plan: See above (4) Acute hyponatremia: Code(s): E87.1 - Hypo-osmolality and hyponatremia Status: Acute Assessment and Plan: Repeat sodium after fluid bolus stable Nephrology consulted (5) Anemia: Code(s): D64.9 - Anemia, unspecified Status: Acute Assessment and Plan: Repeat hemoglobin at 8:00 p.m. Slight drop in hemoglobin likely due to delusional Transfuse for hemoglobin less than 7 or symptomatic No need for transfusion at this time (6) Benign hypertension: Code(s): I10 - Essential (primary) hypertension Status: Acute Assessment and Plan: Hold antihypertensives now due to severe hypotension Quality VTE Prophylaxis VTE prophylaxis: mechanical ordered Hospitalist MIPS Advance Care Plan I have confirmed that the patient's Advanced Care Plan is present, code status is documented, or surrogate decision maker is listed in patient medical record.: Yes Medication Reconciliation I have utilized all available resources to obtain, update and review the patients current medications (includes all prescriptions, OTC, herbals, cannabis, and nutritional supplements).: Yes
[2024-12-29] MEDS: STAT BOLUS COMMUNICATION ORDER 1827 ML IV CONT (12:57)
[2024-12-29 13:19] LABS: Lactic Acid Reflex 1.1 mmol/L (0.7-2.0)
[2024-12-29] MEDS: LACTATED RINGERS 1,000 ML 999 ML IV CONT (13:24)
[2024-12-29] MEDS: LACTATED RINGERS 900 ML 999 ML IV CONT (13:24)
[2024-12-29 13:43] LABS: Procalcitonin 0.6 ng/mL
--- NOTE | 2024-12-29 14:43 | PC.NURSE ---
Patient's BP consistent at 70's/50's after fluids. Provider aware
[2024-12-29 14:44] LABS: Add Urine Microscopic? YES; Appearance Urine Cloudy (Clear); Bacteria Urine None Seen /hpf; Bilirubin Urine Negative (Negative); Blood Urine Non-Hemolyzed Trace (Negative); Color Urine Dark Yellow (Yellow); Glucose Urine UA Negative (Negative); Hyaline Casts Urine Present /lpf; Ketones Urine Trace mg/dL (Negative); Leukocyte Esterase Ur Trace LEU/UL (Negative); Mucus Urine Present /lpf; Need Manual Microscopic Reviewed; Nitrate Urine Negative (Negative); Non Pathogenic Casts >20; Protein Urine 2+ mg/dL (Negative); RBC Urine 0-2 /hpf (0-2); Specific Grav Ur 1.017 (1.001-1.035); Squamous Epithelial Cell Urine Moderate /hpf (Few); Urobilinogen Urine 0.2 mg/dL (<2.0); WBC Urine 51-100 /hpf (0-3)
--- NOTE | 2024-12-29 16:11 | ADMGEN ---
This patient, Regi Snyder, was admitted to Intensive Care Unit-8. Patient/family oriented to hospital policies and general routines including ID bracelet, bed and alarms, visiting hours, pain management, procedures, bathroom and other care routines, personal items, smoking policy, room service/diet, and visiting hours. Information on how to activate the Rapid Response Team has been discussed. Patient/Family are encouraged to report perceived risks to care and to ask questions if they do not understand what they are told or what they should do.
[2024-12-29] MEDS: LACTATED RINGERS 1,000 ML 125 ML IV CONT (16:30)
[2024-12-29] MEDS: metroNIDAZOLE 500 MG/ISO 100ML 500 MG/100 ML BAG 100 MG IVPB (16:30)
[2024-12-29 16:56] LABS: Toxigenic C. Diff NEGATIVE (NEGATIVE)
--- NOTE | 2024-12-29 17:14 | P.CONNP_ITS ---
Assessment and Plan Assessment and plan (1) Acute kidney injury: Code(s): N17.9 - Acute kidney failure, unspecified Status: Acute Assessment and Plan: * as noted on admission * multifactorial etiology: * prerenal factors (diarrhea) * hemodynamic instability/hypotension * infection/early sepsis(?) * use of ARB prior to admission * other(?) * check renal ultrasound, urine studies, and CPK * agreed with IVF resuscitation * optimized hemodynamics * hold losartan * follow trend of repeat labs and UOP (2) Stage 3a chronic kidney disease: Code(s): N18.31 - Chronic kidney disease, stage 3a Status: Chronic Assessment and Plan: * baseline creatinine runs ~ .0.9 - 1.2mg/dl * presumably due to hypertension and age-related change (3) Hypotension: Code(s): I95.9 - Hypotension, unspecified Status: Acute Assessment and Plan: * felt to be secondary to hypovolemia/volume depletion/dehydration from diarrhea * clinically better with IVF resuscitation * monitor for the need for vasopressor therapy * lactic acid normal * follow trend of hemodynamics (4) Metabolic acidosis: Code(s): E87.20 - Acidosis, unspecified Status: Acute Assessment and Plan: * due to acute kidney injury/acute renal failure in conjunction from GI losses (diarrhea) * consider adding bicarb to IVFs if worsens * follow trend of CO2 (5) Hyponatremia: Code(s): E87.1 - Hypo-osmolality and hyponatremia Status: Chronic Assessment and Plan: * has been present as far back as early 2023 * probably due to a combination of SUDHA, volume depletion, and underlying malignancy/cancer * follow trend (6) Diarrhea: Qualifiers: Diarrhea type: presumed infectious Qualified Code(s): R19.7 - Diarrhea, unspecified Code(s): R19.7 - Diarrhea, unspecified Status: Acute Assessment and Plan: * reportedly present x 2 weeks prior to presentation * 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 * also is on chemotherapy as well * CT scan of the abdomen pelvis showed minimal thickening of sigmoid colon suggestive of colitis * stool negative for C diff toxin * empirically on antibiotics (7) UTI (urinary tract infection): Code(s): N39.0 - Urinary tract infection, site not specified Status: Acute Assessment and Plan: * admission urinalysis suggestive * follow culture data * on antibiotics (8) Adenocarcinoma of left lung, stage 4: Code(s): C34.92 - Malignant neoplasm of unspecified part of left bronchus or lung Status: Chronic Assessment and Plan: * known diagnosis * currently on chemotherapy * follows with Hem/Onc Long extensive discussion (greater than 20 minutes) with the patient as well as her granddaughter at bedside regarding her acute kidney injury/ acute renal failure with the presumed etiology of volume depletion/ dehydration secondary to her severe diarrhea for last 2 weeks likely worsened by her low blood pressure. I discussed with him my hopes that aggressive IV fluid hydration and optimization of her hemodynamic should hopefully reverse if not normalize her renal function fluid assuming there are no other issues or problems that may be contributing to her clinical situation. They both appeared to voice understanding. I will continue to follow the patient with you while she remains hospitalized and make further recommendations as deemed necessary. Thank you for allowing me to participate in the care of this patient. L History of Present Illness Reason for Consult Consult date: 12/29/24 Reason for consult: acute renal failure Chief Complaint Chief complaint: Renal Failure History of Present Illness Narrative: The patient is a 64-year-old female with a past medical history as outlined below who presented to [facility] Emergency Room with complaints of generalized weakness and diarrhea. The patient reports that she was recently hospitalized a couple of months ago for Giardia infection which was thought to be the cause of her diarrhea at that time. She apparently received appropriate treatment/therapy for while she was hospitalized for this issue but she states that even after she was discharged, the diarrhea never completely resolved and she always had some degree of it till now. Approximately 2 weeks ago, she started having diarrhea again with multiple watery bowel movements almost every hour. She gave no history of nausea, vomiting, or abdominal pain or for that matter fevers, chills, shortness of breath, or chest pain. Furthermore, her bowel movements did not have any evidence of melena or hematochezia. She described the bowel movements as fluctuating between yellow-green to dark black color. Given these ongoing GI symptoms, she reports increasing weakness and fatigue but denies any dizziness or lightheadedness. She presented to her oncologist earlier today for her scheduled chemotherapy but labs done at that time demonstrated significant decline in her kidney function. Given these laboratory abnormalities, she was referred to the emergency room for further assessment. Workup and evaluation emergency room demonstrated the patient be hypotensive in the 70s systolic range. On clinical exam by the ER physician, she appeared to be quite dehydrated as well. She received aggressive IV fluids with improvement in her blood pressure to the 90 systolic range. Routine blood tests were ordered which demonstrated a normal white blood cell count, hemoglobin of 10.8, and confirmed her acute kidney injury/acute renal failure with a BUN of 37 creatinine 4.45 mg/dL Along with a sodium of 128 and a CO2 level of 12. Her urinalysis was somewhat suggestive of urinary tract infection as well. Subsequent CT scan of the abdomen pelvis demonstrated minimal thickening of the sigmoid colon which may indicate colitis but no evidence of appendicitis, diverticulitis, or intestinal obstruction. C diff toxin assay was negative as well. Her blood pressure continued to fluctuate despite aggressive IV fluid resuscitation and there was concern that perhaps early sepsis was present or that she may require vasopressor therapy to maintain her blood pressure So she was subsequently admitted to the intensive care unit for further evaluation therapy. Renal consultation was requested due to her acute kidney injury/acute renal failure. From review of her records, her baseline creatinine runs around 0.9 - 1.2 mg/dL. This would suggest that she has some degree of mild renal insufficiency at baseline most likely secondary to hypertension and age. given the significant change in her renal function on admission and by outpatient labs, the presumed etiology is that of severe volume depletion/dehydration with a possible component of renal hypoperfusion secondary to GI losses/diarrhea for last 2 weeks complicated by hypotension. This was father further precipitated by her outpatient use of her losartan. Unfortunately, despite interventions to date, she still is having diarrhea at the time of my visit but her blood pressure does appear to be doing somewhat better with ongoing IV fluids. Currently, the time my evaluation, she does not appear to be any acute distress and her granddaughter was at bedside and we discussed the situation in detail. Review of Systems 2 Review of Systems: As per HPI. [facility] Past Medical History Medical History (Updated 12/31/24 @ 13:23 by Camden Rizvi MD) Secondary malignant neoplasm of brain Benign hypertension Metastasis to bone Adenocarcinoma of left lung, stage 4 Gallstone Asthma Surgical History Surgical History H/O hysterectomy for benign disease Family History Family History Father Alcoholism Mother Cirrhosis Sibling Cancer Diabetes mellitus Depression Heart disease Social History Social History Social History: caffeine- coffee 10 tea 1/2 gallon soda 1 can Smoking packs per day: 2 Smoking cigarettes per day: 40.0 Years smoked: 48 Smoking pack-years: 96.00 Smoking status: Former smoker Tobacco type: cigarettes Second hand tobacco smoke exposure: No Alcohol intake: never Substance use: current Substance use type: marijuana Last use: 12/25/24 Do You Feel Safe in your Home?: Yes Lack of Transportation: No Lack of Food: Never True Current Housing: I Have Housing Concerned About Future Housing: No Difficulty Paying Gas/Electric Bills: No Difficulty Paying for Meds: No Currently Unemployed: No Education: High School Diploma/GED Difficulty w/ Childcare or Family Care: No Living arrangements: with family Occupation/Education: retired Gender identity (if verbalized by the patient): Female Sexual Orientation (if Verbalized by the Patient): Straight or Heterosexual Spiritual care concerns: No Meds Home Medications and Allergies Home Medications Medication Instructions Recorded Confirmed Type dexamethasone 4 mg tablet 4 mg PO BID 01/15/24 12/29/24 History folic acid 1 mg tablet 1 mg PO DAILY 01/15/24 12/29/24 History ondansetron 8 mg disintegrating 8 mg PO Q8H 01/15/24 12/29/24 History tablet tramadol 50 mg tablet 50 mg PO DAILY 03/03/24 12/29/24 History calcium 500 mg tablet 500 mg PO BID 04/08/24 12/29/24 History B12 100 mcg PO DAILY 11/12/24 12/29/24 History Lidocaine-Prilocaine 1 dose topical .[id number] 11/12/24 12/29/24 History ferrous sulfate 325 mg (65 mg 325 mg PO DAILY 11/12/24 12/29/24 History iron) tablet (iron) pantoprazole 40 mg tablet,delayed 40 mg PO BID 11/12/24 12/29/24 History release potassium chloride 20 mEq/15 mL 20 meq PO BID 11/12/24 12/29/24 History oral liquid losartan 100 mg tablet 100 mg PO DAILY #90 tabs 12/09/24 12/29/24 Rx Allergies Allergy/AdvReac Type Severity Reaction Status Date / Time No Known Allergies Allergy Verified 12/29/24 16:17 Vital Signs Vital Signs Temp Pulse Resp BP Pulse Ox 12/29/24 15:43 80 20 90/52 L 98 12/29/24 14:31 69 22 H 78/49 L 100 12/29/24 14:28 73 17 100 12/29/24 13:45 73 14 97 12/29/24 13:42 74 19 70/51 L 100 12/29/24 13:31 71 18 68/51 L 98 12/29/24 13:30 73 14 99 12/29/24 13:25 77 13 109/75 100 12/29/24 13:24 83 16 109/75 100 12/29/24 13:22 77 19 99 12/29/24 13:01 79 12 80/53 L 100 12/29/24 12:55 81 15 12/29/24 12:31 77 13 78/50 L 100 12/29/24 11:25 97.4 F L 89 16 74/52 L 99 Exam 2 Narrative: GENERAL APPEARANCE: elderly female in no acute distress HEENT: normocephalic, atraumatic, normal conjunctiva and sclera, nares patient NECK: no lymphadenopathy, thyromegaly, or JVD MOUTH: normal lips, teeth, and gums CARDIOVASCULAR: RRR, normal S1 and S2, no rub RESPIRATORY: clear to auscultatio ABDOMEN: soft, nontender, nondistended, positive bowel sounds present EXTREMITIES: no evidence of cyanosis, clubbing, or edema NEUROLOGICAL: alert and oriented x 3; CN II - XII intact bilaterally; no focal deficits noted Results Lab Results 12/31/24 03:54 12/31/24 03:54 Lab results: Most recent lab results Calcium 8.8 mg/dL (8.4-10.2) 12/29/24 11:47
[2024-12-29] MEDS: CEFEPIME 2 GM/NS 50 ML 2 GM/50 ML BAG IVPB (17:31)
[2024-12-29 17:37] LABS: MRSA (PCR) NOT DETECTED (NOT DETECTE)
[2024-12-29 19:06] LABS: Hematocrit 28.7 % (37.0-47.0); Hemoglobin 9.4 g/dL (12.0-15.0)
[2024-12-29 19:24] LABS: Anion Gap 13 mmol/L (4-12); Blood Urea Nitrogen 35 mg/dL (7-17); Calcium 8.1 mg/dL (8.4-10.2); Carbon Dioxide 14 mmol/L (22-30); Chloride 101 mmol/L (98-107); Creatine Kinase 33 U/L (30-135); Estimated CRCL calculation 12 ml/min; Estimated Glomerular Filt Rate 13; Glucose 139 mg/dL (65-110); Potassium 3.3 mmol/L (3.4-5.0); Sodium 128 mmol/L (137-145)
[2024-12-29 19:25] LABS: Magnesium 1.6 mg/dL (1.6-2.3)
[2024-12-29 20:54] LABS: Urea Random Urine 277 MG/DL
[2024-12-29 20:55] LABS: Sodium Urine Random 10 meq/L
[2024-12-29 20:57] LABS: Creatinine Urine 98.8 mg/dL; Total Protein Urine Random 38 mg/dL; Ur Ttl Prot Creatinine Ratio 0.38 mg/mg (0-0.20)
[2024-12-29 21:15] LABS: Eosinophil Urine None Seen % (None Seen)
[2024-12-29 21:16] LABS: Urine Eos QC 2nd Tech Confirmed
[2024-12-29] MEDS: ALBUMIN HUMAN 5% 25 GM/500 ML BTL IV CONT (22:18)
[2024-12-29] MEDS: POTASSIUM CHLORIDE 20 MEQ ER TABLET 40 MEQ PO (22:18)
[2024-12-29] MEDS: traMADol HCL (*CRX) 50 MG TABLET PO (22:18)
[2024-12-30] VITALS (14 sets, daily range): BP systolic 76–120; BP diastolic 59–90; PULSE 74–91; RESP 18–23; TEMP 37.1–37.6; O2SAT 94–98
[2024-12-30] MEDS: LACTATED RINGERS 1,000 ML 125 ML IV CONT (01:30)
[2024-12-30 04:37] LABS: Basophils Absolute Auto 0.1 K/mm3 (0.0-0.1); Basophils Percent Auto 1.1 % (0.2-1.2); Eosinophils Absolute Auto 0.1 K/mm3 (0-0.3); Hematocrit 22.2 % (37.0-47.0); Hemoglobin 7.2 g/dL (12.0-15.0); Immature Granulocyte Percent A 3.6 % (0-0.5); Lymphocytes Absolute Auto 0.97 K/mm3 (0.9-3.2); Lymphocytes Percent Auto 17.2 % (18.3-44.2); Mean Corpuscular HGB Conc 32.4 g/dl (32-36); Mean Corpuscular Hemoglobin 31.2 pg (26-34); Mean Corpuscular Volume 96.1 fl (80-100); Mean Platelet Volume 8.6 fl (7.4-10.4); Monocytes Percent Auto 18.5 % (2.6-8.5); Neutrophils Absolute Auto 3.3 K/mm3 (1.3-6.7); Neutrophils Percent Auto 57.6 % (45.5-73.1); Platelet Count Result 409 k/mm3 (150-375); Red Blood Count 2.31 M/mm3 (4.2-5.4); Red Cell Distribution Width 14.5 % (11.5-14.5); White Blood Count 5.6 K/mm3 (4.5-10.0)
[2024-12-30 08:10] LABS: Alanine Aminotransferase 13 U/L (6-35); Albumin Level 3.2 g/dL (3.5-5.1); Alkaline Phosphatase 58 U/L (38-126); Anion Gap 10 mmol/L (4-12); Aspartate Amino Transferase 21 U/L (14-36); Bilirubin,Total 0.2 mg/dL (0.2-1.3); Blood Urea Nitrogen 29 mg/dL (7-17); Calcium 7.8 mg/dL (8.4-10.2); Carbon Dioxide 17 mmol/L (22-30); Chloride 105 mmol/L (98-107); Estimated CRCL calculation 14 ml/min; Estimated Glomerular Filt Rate 17; Glucose 84 mg/dL (65-110); Potassium 4.1 mmol/L (3.4-5.0); Sodium 132 mmol/L (137-145)
[2024-12-30 09:12] LABS: Magnesium 1.6 mg/dL (1.6-2.3)
[2024-12-30] MEDS: LACTATED RINGERS 1,000 ML 75 ML IV CONT (10:24)
[2024-12-30] MEDS: MAGNESIUM SULF 2 GM/WATER 50ML 2 GM/50 ML BAG IVPB (10:25)
[2024-12-30] MEDS: metroNIDAZOLE 500 MG/ISO 100ML 500 MG/100 ML BAG 100 MG IVPB ×2 (10:27→18:39)
--- NOTE | 2024-12-30 10:58 | P.CONIN_ITS ---
Assessment and Plan Assessment and plan (1) Acute hypotension: Code(s): I95.9 - Hypotension, unspecified Status: Acute Assessment and Plan: Acute hypotension secondary to hypovolemia and dehydration from diarrhea Improved with IV fluids Normal lactic is (2) Acute renal failure (ARF): Code(s): N17.9 - Acute kidney failure, unspecified Status: Acute Assessment and Plan: SUDHA with baseline chronic kidney disease likely secondary to hypovolemia and dehydration. Presented with creatinine of 4.4 for which has improved to 2.78 Continue IV fluid Nephrology consulted and following Electrolytes and acid-base status acceptable and improved Renal ultrasound negative for any hydronephrosis or stones Monitor urine output electrolytes and creatinine (3) CKD (chronic kidney disease): Code(s): N18.9 - Chronic kidney disease, unspecified Status: Acute Assessment and Plan: See above (4) Acute dehydration: Code(s): E86.0 - Dehydration Status: Acute Assessment and Plan: Secondary to diarrhea Patient has been receiving crystalloid fluids and urine output has improved Continue IV fluids with decreased rate (5) Adenocarcinoma of left lung, stage 4: Code(s): C34.92 - Malignant neoplasm of unspecified part of left bronchus or lung Status: Acute Assessment and Plan: Patient has stage IV lung cancer and is currently on chemotherapy. Most recent chemotherapy session was not done due to patient being dehydrated and hypovolemic (6) Diarrhea: Code(s): R19.7 - Diarrhea, unspecified Status: Acute Assessment and Plan: Patient presented with diarrhea for last 2 weeks. She was recently diagnosed and treated for Giardia infection in September 2024 She also is on chemotherapy and takes IV CT scan of the abdomen pelvis showed minimal thickening of sigmoid colon suggestive of colitis Stool negative for C diff Continue Rocephin and Flagyl Will send stool for Giardia Shivani Consult GI (7) Colitis: Code(s): K52.9 - Noninfective gastroenteritis and colitis, unspecified Status: Acute Assessment and Plan: See above (8) UTI (urinary tract infection): Code(s): N39.0 - Urinary tract infection, site not specified Status: Acute Assessment and Plan: She denies any symptoms but he was suggestive of UTI. Patient is currently on Rocephin. Cultures ordered and pending. Plan DVT prophylaxis -Lovenox Nutrition -advance care liquid diet to regular Code Status -patient wishes to be DNR DNI. This was confirmed by her POA her granddaughter at bedside Transfer out of ICU today [employer] Consult Note Consult date: 12/30/24 Reason for consult: Diarrhea, dehydration, hypotension HPI: Regi Snyder is a 64 year old female with past medical history of stage IV lung cancer on chemotherapy who was diagnosed with Giardiasis in September at [facility] presented to ER yesterday with chief complaint of weakness and diarrhea. Patient states that she was diagnosed and was treated for Giardia infection. Her diarrhea got better but never got completely resolved. Two weeks ago she started having diarrhea again with multiple watery bowel movements in a day. She did not had any belly pain nausea vomiting. She had no fever. No dysuria hematuria hematochezia or melena. She felt weak but not dizzy or lightheaded. She reported to her oncologist yesterday for chemotherapy and the patient was sent from Oncology Clinic to ER. She denied any chest pain shortness of breath fever cough or loss of consciousness. All other systems were reviewed and were negative Workup in the ER showed patient to be significantly dehydrated. Her WBC was normal. Hemoglobin was elevated from her normal baseline level. She had elevated creatinine of 4.45 BUN 37 anion gap 18 carbon dioxide wall sodium 128. Her procalcitonin level 0.6 UA was suggestive of UTI CT scan was done and showed IMPRESSION: 1. Minimal pericardial effusion. 2. Minimal thickening of the sigmoid colon wall which may indicate colitis. 3. No evidence of appendicitis, diverticulitis or intestinal obstruction Stool C diff was negative Patient was given IV fluid bolus and started on IV fluids and admitted to ICU for close monitoring. Review of Systems 2 Review of Systems: All systems reviewed & are unremarkable except as noted in HPI and below (HPI) [facility] Past Medical History Medical History Benign hypertension Metastasis to bone Adenocarcinoma of left lung, stage 4 Secondary malignant neoplasm of brain Gallstone Asthma Surgical History Surgical History H/O hysterectomy for benign disease Family History Family History Father Alcoholism Mother Cirrhosis Sibling Cancer Diabetes mellitus Depression Heart disease Social History Social History Social History: caffeine- coffee 10 tea 1/2 gallon soda 1 can Smoking packs per day: 2 Smoking cigarettes per day: 40.0 Years smoked: 48 Smoking pack-years: 96.00 Smoking status: Former smoker Tobacco type: cigarettes Second hand tobacco smoke exposure: No Alcohol intake: never Substance use: current Substance use type: marijuana Last use: 12/25/24 Do You Feel Safe in your Home?: Yes Lack of Transportation: No Lack of Food: Never True Current Housing: I Have Housing Concerned About Future Housing: No Difficulty Paying Gas/Electric Bills: No Difficulty Paying for Meds: No Currently Unemployed: No Education: High School Diploma/GED Difficulty w/ Childcare or Family Care: No Living arrangements: with family Occupation/Education: retired Gender identity (if verbalized by the patient): Female Sexual Orientation (if Verbalized by the Patient): Straight or Heterosexual Spiritual care concerns: No Meds Home Medications and Allergies Home Medications Medication Instructions Recorded Confirmed Type dexamethasone 4 mg tablet 4 mg PO BID 01/15/24 12/29/24 History folic acid 1 mg tablet 1 mg PO DAILY 01/15/24 12/29/24 History ondansetron 8 mg disintegrating 8 mg PO Q8H 01/15/24 12/29/24 History tablet tramadol 50 mg tablet 50 mg PO DAILY 03/03/24 12/29/24 History calcium 500 mg tablet 500 mg PO BID 04/08/24 12/29/24 History B12 100 mcg PO DAILY 11/12/24 12/29/24 History Lidocaine-Prilocaine 1 dose topical .[id number] 11/12/24 12/29/24 History ferrous sulfate 325 mg (65 mg 325 mg PO DAILY 11/12/24 12/29/24 History iron) tablet (iron) pantoprazole 40 mg tablet,delayed 40 mg PO BID 11/12/24 12/29/24 History release potassium chloride 20 mEq/15 mL 20 meq PO BID 11/12/24 12/29/24 History oral liquid losartan 100 mg tablet 100 mg PO DAILY #90 tabs 12/09/24 12/29/24 Rx Allergies Allergy/AdvReac Type Severity Reaction Status Date / Time No Known Allergies Allergy Verified 12/29/24 16:17 Vital Signs Vital Signs - 24 hr 12/29/24 11:25 12/29/24 12:31 12/29/24 12:55 Temperature 36.3 C L Pulse Rate 89 77 81 Respiratory Rate 16 13 15 Blood Pressure 74/52 L 78/50 L Pulse Oximetry 99 100 Oxygen Delivery 12/29/24 13:01 12/29/24 13:22 12/29/24 13:24 Temperature Pulse Rate 79 77 83 Respiratory Rate 12 19 16 Blood Pressure 80/53 L 109/75 Pulse Oximetry 100 99 100 Oxygen Delivery 12/29/24 13:25 12/29/24 13:30 12/29/24 13:31 Temperature Pulse Rate 77 73 71 Respiratory Rate 13 14 18 Blood Pressure 109/75 68/51 L Pulse Oximetry 100 99 98 Oxygen Delivery 12/29/24 13:42 12/29/24 13:45 12/29/24 14:28 Temperature Pulse Rate 74 73 73 Respiratory Rate 19 14 17 Blood Pressure 70/51 L Pulse Oximetry 100 97 100 Oxygen Delivery 12/29/24 14:31 12/29/24 15:43 12/29/24 16:00 Temperature Pulse Rate 69 80 82 Respiratory Rate 22 H 20 Blood Pressure 78/49 L 90/52 L Pulse Oximetry 100 98 Oxygen Delivery 12/29/24 16:05 12/29/24 18:00 12/29/24 18:00 Temperature Pulse Rate 79 87 Respiratory Rate 26 H Blood Pressure 99/57 L Pulse Oximetry 98 Oxygen Delivery Room Air 12/29/24 20:00 12/29/24 20:00 12/29/24 20:00 Temperature 37.1 C Pulse Rate 87 90 Respiratory Rate 15 Blood Pressure 89/78 L Pulse Oximetry 98 100 Oxygen Delivery Room Air 12/29/24 22:00 12/29/24 22:00 12/30/24 00:00 Temperature 37.2 C Pulse Rate 95 95 Respiratory Rate 24 H Blood Pressure 87/62 L Pulse Oximetry 99 94 Oxygen Delivery Room Air 12/30/24 00:00 12/30/24 00:00 12/30/24 02:00 Temperature 37.3 C Pulse Rate 88 86 79 Respiratory Rate 18 Blood Pressure 82/62 L Pulse Oximetry 94 Oxygen Delivery 12/30/24 02:00 12/30/24 04:00 12/30/24 04:00 Temperature 37.1 C Pulse Rate 79 74 Respiratory Rate 18 Blood Pressure 80/62 L Pulse Oximetry 94 95 Oxygen Delivery Room Air 12/30/24 04:00 12/30/24 06:00 12/30/24 06:00 Temperature 37.1 C 37.3 C Pulse Rate 75 76 76 Respiratory Rate 18 18 Blood Pressure 76/59 L 95/69 L Pulse Oximetry 95 97 Oxygen Delivery 12/30/24 08:00 12/30/24 08:00 12/30/24 08:00 Temperature 37.2 C Pulse Rate 84 84 84 Respiratory Rate 19 19 Blood Pressure 101/68 Pulse Oximetry 97 97 Oxygen Delivery Room Air 12/30/24 09:01 Temperature Pulse Rate Respiratory Rate Blood Pressure Pulse Oximetry 97 Oxygen Delivery Room Air Exam 2 Narrative: General: Pt is alert awake and in NAD Lungs/Chest: Trachea central Clear BS B/L, No crackles or wheezing. Cardiac: RRR. Normal S1 S2. No murmurs Circulation: Pedal pulses are intact and symmetrical. Abdomen: Normal bowel sounds.. Soft. NT. ND. Extremities: No clubbing, cyanosis or edema. Warm : Min in place Neurologic: Follows commands. Moves all 4 extremities PERRL AO x3 Skin: No Rash Results Labs 12/30/24 04:26 12/30/24 04:26 Labs: Short CBC 12/29/24 12/29/24 12/30/24 Range/Units 11:47 18:51 04:26 WBC 7.6 5.6 (4.5-10.0) K/mm3 Hgb 10.8 L 9.4 L 7.2 L (12.0-15.0) g/dL Hct 32.9 L 28.7 L 22.2 L (37.0-47.0) % Plt Count 657 H 409 H (150-375) k/mm3 BMP 12/29/24 12/29/24 12/30/24 11:47 18:51 04:26 Sodium 128 L 128 L 132 L Potassium 3.8 3.3 L 4.1 Chloride 98 101 105 Carbon Dioxide 12 L 14 L 17 L BUN 37 H 35 H 29 H Creatinine 4.45 H 3.59 H 2.78 H Glucose 135 H 139 H 84 Calcium 8.8 8.1 L 7.8 L Cardiac Enzymes 12/29/24 Range/Units 18:51 Total Creatine Kinase 33 (30-135) U/L Liver Function 12/29/24 12/30/24 Range/Units 11:47 04:26 Total Bilirubin 0.6 0.2 (0.2-1.3) mg/dL AST 33 21 (14-36) U/L ALT 21 13 (6-35) U/L Alkaline Phosphatase 101 58 (38-126) U/L Albumin 4.4 3.2 L (3.5-5.1) g/dL Urine 12/29/24 Range/Units 14:27 Urine Color Dark yellow (Yellow) Urine Appearance Cloudy H (Clear) Urine pH 5.0 (5.0-9.0) Ur Specific [place] 1.017 (1.001-1.035) Urine Protein 2+ H (Negative) mg/dL Urine Glucose (UA) Negative (Negative) mg/dL Quality VTE Prophylaxis VTE prophylaxis: pharmacologic ordered Hospitalist MIPS Advance Care Plan I have confirmed that the patient's Advanced Care Plan is present, code status is documented, or surrogate decision maker is listed in patient medical record.: Yes Medication Reconciliation I have utilized all available resources to obtain, update and review the patients current medications (includes all prescriptions, OTC, herbals, cannabis, and nutritional supplements).: Yes
[2024-12-30] MEDS: CALCIUM GLUC 2,000 MG/NS 100ML 2,000 MG/100 ML BAG 100 MG IVPB (10:59)
--- NOTE | 2024-12-30 12:42 | P.PNNP_ITS ---
Progress Note: A&P Assessment and Plan (1) Acute kidney injury: Code(s): N17.9 - Acute kidney failure, unspecified Status: Acute Assessment and Plan: * improvement noted * as noted on admission * multifactorial etiology: * prerenal factors (diarrhea) * hemodynamic instability/hypotension * infection/early sepsis(?) * use of ARB prior to admission * other(?) * evaluation to date noted: * renal ultrasound without obstruction * urine electrolytes are prerenal * urine eosinophils negative * CPK normal * mild proteinuria * on IVF resuscitation * optimized hemodynamics as tolerated * hold losartan * follow trend of repeat labs and UOP (2) Stage 3a chronic kidney disease: Code(s): N18.31 - Chronic kidney disease, stage 3a Status: Chronic Assessment and Plan: * baseline creatinine runs ~ .0.9 - 1.2mg/dl * presumably due to hypertension and age-related change (3) Hypotension: Code(s): I95.9 - Hypotension, unspecified Status: Acute Assessment and Plan: * improving * felt to be secondary to hypovolemia/volume depletion/dehydration from diarrhea * clinically better with IVF resuscitation * monitor for the need for vasopressor therapy * lactic acid normal * follow trend of hemodynamics (4) Metabolic acidosis: Code(s): E87.20 - Acidosis, unspecified Status: Acute Assessment and Plan: * due to acute kidney injury/acute renal failure in conjunction from GI losses (diarrhea) * consider adding bicarb to IVFs if worsens * follow trend of CO2 (5) Hyponatremia: Code(s): E87.1 - Hypo-osmolality and hyponatremia Status: Chronic Assessment and Plan: * has been present as far back as early 2023 * probably due to a combination of SUDHA, volume depletion, and underlying malignancy/cancer * follow trend (6) Diarrhea: Qualifiers: Diarrhea type: presumed infectious Qualified Code(s): R19.7 - Diarrhea, unspecified Code(s): R19.7 - Diarrhea, unspecified Status: Acute Assessment and Plan: * reportedly present x 2 weeks prior to presentation * 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 * also is on chemotherapy as well * CT scan of the abdomen pelvis showed minimal thickening of sigmoid colon suggestive of colitis * stool negative for C diff toxin * empirically on antibiotics (7) UTI (urinary tract infection): Code(s): N39.0 - Urinary tract infection, site not specified Status: Acute Assessment and Plan: * admission urinalysis suggestive * no urine culture done * on antibiotics (8) Adenocarcinoma of left lung, stage 4: Code(s): C34.92 - Malignant neoplasm of unspecified part of left bronchus or lung Status: Chronic Assessment and Plan: * known diagnosis * currently on chemotherapy * follows with Hem/Onc Will continue to follow. L Subjective Date/time seen: 12/30/24 12:42 Interval history: Follow-up for acute kidney injury/acute renal failure on chronic kidney disease. Renal function/creatinine has improved since admission with current therapy/interventions; better hemodynamics/BP readings noted with IVF resuscitation (and has not needed vasopressor support); no other acute issues/events overnight or earlier this morning. Exam 2 Narrative: General: elderly but WD/WN Cauc[place] female in NAD Heart: normal S1 and S2; no rub Lungs: clear to auscultation Abdomen: soft, nontender, nondistended, positive bowel sounds Extremities: no cyanosis or clubbing; no edema Skin: warm and dry Objective Data Vital Signs Vital Signs: Vital Signs Temp Pulse Resp BP Pulse Ox O2 Del Method 12/30/24 12:00 99.4 F 76 21 H 87/61 L 94 12/30/24 12:00 76 21 H 94 Room Air 12/30/24 10:00 99.2 F 78 22 H 96/65 L 98 12/30/24 10:00 78 12/30/24 09:01 97 Room Air 12/30/24 08:00 99.0 F 84 19 101/68 97 12/30/24 08:00 84 12/30/24 08:00 84 19 97 Room Air 12/30/24 06:00 99.1 F 76 18 95/69 L 97 12/30/24 06:00 76 12/30/24 04:00 98.8 F 75 18 76/59 L 95 12/30/24 04:00 74 12/30/24 04:00 95 Room Air 12/30/24 02:00 98.8 F 79 18 80/62 L 94 12/30/24 02:00 79 12/30/24 00:00 86 12/30/24 00:00 99.1 F 88 18 82/62 L 94 12/30/24 00:00 94 Room Air 12/29/24 22:00 98.9 F 95 24 H 87/62 L 99 12/29/24 22:00 95 12/29/24 20:00 90 12/29/24 20:00 98.7 F 87 15 89/78 L 100 12/29/24 20:00 98 Room Air 12/29/24 18:00 87 26 H 99/57 L 98 12/29/24 18:00 79 Intake/Output Intake/Output: Intake & Output 12/27/24 12/28/24 12/29/24 12/30/24 23:59 23:59 23:59 23:59 Intake Total 3000 3020 Output Total 600 Balance 3000 2420 Meds/Results Medications: Active Medications Generic Name Dose Route Start Last Admin Trade Name Freq PRN Reason Stop Dose Admin Acetaminophen 650 mg 12/29/24 13:12 Acetaminophen 325 Mg Tablet PO Q4H PRN Mild Pain (1-3) or Fever Enoxaparin Sodium 30 mg 12/31/24 09:00 Enoxaparin 30 Mg/0.3 Ml Syringe SUB-Q DAILY LISSETTE Albumin Human 100 mls @ 60 mls/hr 12/30/24 12:00 12/30/24 13:23 Albutein IVPB 12/31/24 07:39 60 mls/hr Q6HR LISSETTE Administration Ceftriaxone Sodium 1 gm in 50 mls @ 100 mls/hr 12/30/24 11:00 12/30/24 10:28 Rocephin 1 Gm/Ns 50 Ml IVPB 100 mls/hr Q24H LISSETTE Administration Metronidazole 500 mg in 100 mls @ 100 mls/hr 12/30/24 11:00 12/30/24 10:27 Flagyl 500 Mg/Iso Soln 100 Ml IVPB 100 mls/hr Q8H LISSETTE Administration Tramadol HCl 50 mg 12/29/24 21:29 12/29/24 22:18 Tramadol Hcl (*Crx) 50 Mg Tablet PO 50 mg Q6H PRN Administration Pain Rated 4-6 Radiology Results: ITS Impressions Abdomen/Pelvis CT 12/29/24 13:23 IMPRESSION: 1. Minimal pericardial effusion. 2. Minimal thickening of the sigmoid colon wall which may indicate colitis. 3. No evidence of appendicitis, diverticulitis or intestinal obstruction Renal Ultrasound 12/29/24 22:28 IMPRESSION: No hydronephrosis or renal calculi. The bladder is decompressed, limiting its evaluation Labs Labs: Laboratory Tests 12/30/24 04:26 12/30/24 04:26 Calcium 7.8 L Phosphorus 4.0 Magnesium 1.6 Total Bilirubin 0.2 AST 21 ALT 13 Alkaline Phosphatase 58 Total Protein 6.0 L Albumin 3.2 L Microbiology 12/29/24 15:49 Blood Blood Culture - Preliminary 12/29/24 15:49 Blood Blood Culture - Preliminary 12/29/24 15:49 Stool Escherichia coli Shiga Toxins - Final 12/29/24 15:49 Stool Campylobacter Antigen Assay - Final
[2024-12-30] MEDS: ALBUMIN HUMAN 25% 25 GM/100 ML 100 ML IVPB ×2 (13:23→18:39)
--- NOTE | 2024-12-30 16:41 | P.PNIM_ITS ---
Progress Note: A&P Assessment and Plan (1) Acute hypotension: Code(s): I95.9 - Hypotension, unspecified Status: Acute Assessment and Plan: ED discussed case with ICU attending recommending fluid bolus at this time, CT abdomen, and stool testing Patient accepted to ICU Sepsis bolus CT showing some colitis IV cefepime, Flagyl Blood cultures pending Stool cultures pending Lactic acid 1.1 (2) Acute renal failure (ARF): Code(s): N17.9 - Acute kidney failure, unspecified Status: Acute Assessment and Plan: Likely due to acute dehydration from diarrhea Aggressive fluid hydration Nephrology consult pending recommendations Repeat labs in a.m. Urine study L (3) Acute dehydration: Code(s): E86.0 - Dehydration Status: Acute Assessment and Plan: See above (4) Acute hyponatremia: Code(s): E87.1 - Hypo-osmolality and hyponatremia Status: Acute Assessment and Plan: Repeat sodium after fluid bolus stable Nephrology consulted (5) Anemia: Code(s): D64.9 - Anemia, unspecified Status: Acute Assessment and Plan: Repeat hemoglobin at 8:00 p.m. Slight drop in hemoglobin likely due to delusional Transfuse for hemoglobin less than 7 or symptomatic No need for transfusion at this time (6) Benign hypertension: Code(s): I10 - Essential (primary) hypertension Status: Acute Assessment and Plan: Hold antihypertensives now due to severe hypotension Plan 64 y/o female presented with SUDHA and hyponatremia with complaint of persistent diarrhea 2/2 Giardia infection, this may have dehydration resulting in SUDHA and hyponatremia, patient is being hydrated, her kidney function is improving as we ll as her sodium levels, patient/s frequency of diarrhea, have improved, 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 patient and family denies any foreign travel and not sure sure how she came in contact with Giardia. Subjective Date/time seen: 12/30/24 16:41 Interval history: Abnormal lab work H&P-Narrative: 64-year-old female found to have SUDHA and hyponatremia by her PCP sent to the hospital for further evaluation. she had giardia and was treated but still having diarrhea and not drinking enough fluids. Patient states that she has not and vomiting in she is taking in food okay. Per the nursing she has had a bowel movement about every hour. C diff is negative, other stool samples pending. Patient denies abdominal pain at this time, fever or chills. In the ED her lab work showed anemia at 10.8 which is around baseline, sodium of 128, carbon dioxide 12, anion gap 18, BUN of 37, creatinine of 4.45 with baseline being around 1.1. Due to hypotension not responding to aggressive fluid bolus patient is being sent to ICU for acute dehydration and SUDHA. 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 patient and family d enies any foreign travel and not sure sure how she came in contact with Giardia. Review of Systems Review of Systems: 12 systems were reviewed and are negativ e except for as per HPI. All systems reviewed & are unremarkable except as noted in HPI and below (HPI) Exam Narrative: Patient is comfortable, NAD HEENT: eyes are clear and none icteric LUNGS:CTA HEART: RR S1S2 ABD: BS+, Soft and nontender Lower extremities: no edema SKIN: nonjaundiced Neuro: grossly intact. Objective Data Vital Signs Vital Signs: Vital Signs - 24 hr 12/29/24 18:00 12/29/24 18:00 12/29/24 20:00 Temperature Pulse Rate 79 87 Respiratory Rate 26 H Blood Pressure 99/57 L Pulse Oximetry 98 98 Oxygen Delivery Room Air 12/29/24 20:00 12/29/24 20:00 12/29/24 22:00 Temperature 37.1 C Pulse Rate 87 90 95 Respiratory Rate 15 Blood Pressure 89/78 L Pulse Oximetry 100 Oxygen Delivery 12/29/24 22:00 12/30/24 00:00 12/30/24 00:00 Temperature 37.2 C 37.3 C Pulse Rate 95 88 Respiratory Rate 24 H 18 Blood Pressure 87/62 L 82/62 L Pulse Oximetry 99 94 94 Oxygen Delivery Room Air 12/30/24 00:00 12/30/24 02:00 12/30/24 02:00 Temperature 37.1 C Pulse Rate 86 79 79 Respiratory Rate 18 Blood Pressure 80/62 L Pulse Oximetry 94 Oxygen Delivery 12/30/24 04:00 12/30/24 04:00 12/30/24 04:00 Temperature 37.1 C Pulse Rate 74 75 Respiratory Rate 18 Blood Pressure 76/59 L Pulse Oximetry 95 95 Oxygen Delivery Room Air 12/30/24 06:00 12/30/24 06:00 12/30/24 08:00 Temperature 37.3 C Pulse Rate 76 76 84 Respiratory Rate 18 19 Blood Pressure 95/69 L Pulse Oximetry 97 97 Oxygen Delivery Room Air 12/30/24 08:00 12/30/24 08:00 12/30/24 09:01 Temperature 37.2 C Pulse Rate 84 84 Respiratory Rate 19 Blood Pressure 101/68 Pulse Oximetry 97 97 Oxygen Delivery Room Air 12/30/24 10:00 12/30/24 10:00 12/30/24 12:00 Temperature 37.3 C Pulse Rate 78 78 76 Respiratory Rate 22 H 21 H Blood Pressure 96/65 L Pulse Oximetry 98 94 Oxygen Delivery Room Air 12/30/24 12:00 12/30/24 12:00 12/30/24 14:00 Temperature 37.4 C Pulse Rate 76 76 91 Respiratory Rate 21 H Blood Pressure 87/61 L Pulse Oximetry 94 Oxygen Delivery 12/30/24 14:00 Temperature 37.4 C Pulse Rate 91 Respiratory Rate 23 H Blood Pressure 120/90 Pulse Oximetry 98 Oxygen Delivery Intake/Output Intake/Output: Intake & Output 12/27/24 12/28/24 12/29/24 12/30/24 23:59 23:59 23:59 23:59 Intake Total 3000 3020 Output Total 600 Balance 3000 2420 Meds/Results Medications: Active Medications Generic Name Dose Route Start Last Admin Trade Name Freq PRN Reason Stop Dose Admin Acetaminophen 650 mg 12/29/24 13:12 Acetaminophen 325 Mg Tablet PO Q4H PRN Mild Pain (1-3) or Fever Enoxaparin Sodium 30 mg 12/31/24 09:00 Enoxaparin 30 Mg/0.3 Ml Syringe SUB-Q DAILY LISSETTE Albumin Human 100 mls @ 60 mls/hr 12/30/24 12:00 12/30/24 13:23 Albutein IVPB 12/31/24 07:39 60 mls/hr Q6HR LISSETTE Administration Ceftriaxone Sodium 1 gm in 50 mls @ 100 mls/hr 12/30/24 11:00 12/30/24 10:28 Rocephin 1 Gm/Ns 50 Ml IVPB 100 mls/hr Q24H LISSETTE Administration Metronidazole 500 mg in 100 mls @ 100 mls/hr 12/30/24 11:00 12/30/24 10:27 Flagyl 500 Mg/Iso Soln 100 Ml IVPB 100 mls/hr Q8H LISSETTE Administration Tramadol HCl 50 mg 12/29/24 21:29 12/29/24 22:18 Tramadol Hcl (*Crx) 50 Mg Tablet PO 50 mg Q6H PRN Administration Pain Rated 4-6 Radiology Results: ITS Impressions Abdomen/Pelvis CT 12/29/24 13:23 IMPRESSION: 1. Minimal pericardial effusion. 2. Minimal thickening of the sigmoid colon wall which may indicate colitis. 3. No evidence of appendicitis, diverticulitis or intestinal obstruction Renal Ultrasound 12/29/24 22:28 IMPRESSION: No hydronephrosis or renal calculi. The bladder is decompressed, limiting its evaluation Labs Labs: Laboratory Results - last 24 hr 12/29/24 12/29/24 12/29/24 15:49 16:23 18:51 WBC RBC Hgb 9.4 L Hct 28.7 L MCV MCH MCHC RDW Plt Count MPV Immature Gran % (Auto) Neut % (Auto) Lymph % (Auto) [place] % (Auto) Eos % (Auto) Baso % (Auto) Lymph # (Auto) [place] # (Auto) Eos # (Auto) Baso # (Auto) Abs Immat Gran (auto) Absolute Neuts (auto) Absolute Nucleated RBC Nucleated RBC % Sodium 128 L Potassium 3.3 L Chloride 101 Carbon Dioxide 14 L Anion Gap 13 H BUN 35 H Creatinine 3.59 H Estim Creat Clear Calc 12 Estimated GFR 13 L Glucose 139 H Calcium 8.1 L Phosphorus Magnesium 1.6 Total Bilirubin AST ALT Alkaline Phosphatase Total Creatine Kinase 33 Total Protein Albumin Urine Eosinophils U Random Total Protein Ur Random Sodium Ur Random Urea Urine Total Volume Urine Creatinine Protein/Creat Ratio 2 Nasal MRSA (PCR) Not detected C. difficile (PCR) Negative 12/29/24 12/29/24 12/29/24 20:27 20:27 20:28 WBC RBC Hgb Hct MCV MCH MCHC RDW Plt Count MPV Immature Gran % (Auto) Neut % (Auto) Lymph % (Auto) [place] % (Auto) Eos % (Auto) Baso % (Auto) Lymph # (Auto) [place] # (Auto) Eos # (Auto) Baso # (Auto) Abs Immat Gran (auto) Absolute Neuts (auto) Absolute Nucleated RBC Nucleated RBC % Sodium Potassium Chloride Carbon Dioxide Anion Gap BUN Creatinine Estim Creat Clear Calc Estimated GFR Glucose Calcium Phosphorus Magnesium Total Bilirubin AST ALT Alkaline Phosphatase Total Creatine Kinase Total Protein Albumin Urine Eosinophils None seen U Random Total Protein 38 Cancelled Ur Random Sodium 10 Ur Random Urea 277 Urine Total Volume Cancelled Urine Creatinine 98.8 Cancelled Protein/Creat Ratio 2 0.38 H Nasal MRSA (PCR) C. difficile (PCR) 12/30/24 04:26 WBC 5.6 RBC 2.31 L Hgb 7.2 L Hct 22.2 L MCV 96.1 MCH 31.2 MCHC 32.4 RDW 14.5 Plt Count 409 H MPV 8.6 Immature Gran % (Auto) 3.6 H Neut % (Auto) 57.6 Lymph % (Auto) 17.2 L [place] % (Auto) 18.5 H Eos % (Auto) 2.0 Baso % (Auto) 1.1 Lymph # (Auto) 0.97 [place] # (Auto) 1.0 H Eos # (Auto) 0.1 Baso # (Auto) 0.1 Abs Immat Gran (auto) 0.20 H Absolute Neuts (auto) 3.3 Absolute Nucleated RBC 0.000 Nucleated RBC % 0.0 Sodium 132 L Potassium 4.1 Chloride 105 Carbon Dioxide 17 L Anion Gap 10 BUN 29 H Creatinine 2.78 H Estim Creat Clear Calc 14 Estimated GFR 17 L Glucose 84 Calcium 7.8 L Phosphorus 4.0 Magnesium 1.6 Total Bilirubin 0.2 AST 21 ALT 13 Alkaline Phosphatase 58 Total Creatine Kinase Total Protein 6.0 L Albumin 3.2 L Urine Eosinophils U Random Total Protein Ur Random Sodium Ur Random Urea Urine Total Volume Urine Creatinine Protein/Creat Ratio 2 Nasal MRSA (PCR) C. difficile (PCR) Quality VTE Prophylaxis VTE prophylaxis: pharmacologic ordered
[2024-12-30] MEDS: traMADol HCL (*CRX) 50 MG TABLET PO (20:17)
[2024-12-31] VITALS (9 sets, daily range): BP systolic 108–146; BP diastolic 67–98; PULSE 68–96; RESP 14–22; TEMP 36.4–37.6; O2SAT 91–98
[2024-12-31] MEDS: ALBUMIN HUMAN 25% 25 GM/100 ML 100 ML IVPB ×2 (00:06→05:02)
[2024-12-31] MEDS: metroNIDAZOLE 500 MG/ISO 100ML 500 MG/100 ML BAG 100 MG IVPB ×3 (03:28→18:15)
[2024-12-31 04:22] LABS: Hematocrit 22.2 % (37.0-47.0); Hemoglobin 7.2 g/dL (12.0-15.0); Mean Corpuscular HGB Conc 32.4 g/dl (32-36); Mean Corpuscular Hemoglobin 31.4 pg (26-34); Mean Corpuscular Volume 96.9 fl (80-100); Mean Platelet Volume 8.8 fl (7.4-10.4); Platelet Count Result 432 k/mm3 (150-375); Red Blood Count 2.29 M/mm3 (4.2-5.4); Red Cell Distribution Width 14.6 % (11.5-14.5); White Blood Count 6.2 K/mm3 (4.5-10.0)
[2024-12-31 04:49] LABS: Alanine Aminotransferase 11 U/L (6-35); Albumin Level 4.2 g/dL (3.5-5.1); Alkaline Phosphatase 56 U/L (38-126); Anion Gap 10 mmol/L (4-12); Aspartate Amino Transferase 16 U/L (14-36); Band Neutrophils Percent 7 % (0-6); Basophils Absolute Manual 0.06 K/mm3 (0.0-0.1); Basophils Percent Manual 1 % (0-1); Bilirubin,Total 0.1 mg/dL (0.2-1.3); Blood Urea Nitrogen 15 mg/dL (7-17); Burr Cells 1+; Calcium 8.8 mg/dL (8.4-10.2); Carbon Dioxide 18 mmol/L (22-30); Chloride 106 mmol/L (98-107); Eosinophils Absolute Manual 0.12 K/mm3 (0.02-0.50); Eosinophils Percent Manual 2 % (0-4); Estimated CRCL calculation 24 ml/min; Estimated Glomerular Filt Rate 33; Glucose 89 mg/dL (65-110); Lymphocytes Absolute Manual 1.24 K/mm3 (1.1-4.5); Lymphocytes Percent Manual 20 % (18-44); Monocytes Percent Manual 13 % (3-9); Neutrophils Absolute Manual 3.96 K/mm3 (1.7-7.2); Neutrophils Percent Manual 57 % (46-73); Ovalocytes 1+; Phosphorus 3.1 mg/dL (2.5-4.5); Platelet Estimate Increased (Adequate); Potassium 3.1 mmol/L (3.4-5.0); Schistocytes None Seen; Sodium 134 mmol/L (137-145); Total Cells Counted 100
--- NOTE | 2024-12-31 08:09 | WPDGICN ---
Assessment and Plan Assessment and plan (1) Diarrhea: Qualifiers: Diarrhea type: presumed infectious Qualified Code(s): R19.7 - Diarrhea, unspecified Code(s): R19.7 - Diarrhea, unspecified Status: Acute (2) Colitis: Code(s): K52.9 - Noninfective gastroenteritis and colitis, unspecified Status: Acute Plan 1. 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 Per patient She was hospitalized at [facility] showed high low in September and diagnosed and treated for Giardia. She states she had a normal colonoscopy last month and normal EGD in September. Patient states that after being treated for Giardia her bowel movements returned to normal until 3 weeks ago when her diarrhea returned and she has had no formed bowel movements over the past 3 weeks. She states that she is having nearly constant liquid bowel movements and tenesmus. she states she has lost 10 lb over the past few weeks, per patient normal baseline weight in the upper 140s and most recent weight was 137 lbs. Magnesium normal. C-Diff negative 12/29/2024. CT 12/29/2024 showed minimal thickening of the sigmoid colon. DDX: acute infectious/ inflammatory process versus malabsorption versus medication induced versus motility disorder vs post infectious IBS Stool culture and Giardia pending results patient on Flagyl and ceftriaxone, continue no need for repeat endoscopic evaluation at this time given that she had a normal colonoscopy last month since patient is on antibiotics, will start antidiarrheal start Florator daily 2. Anemia: Patient with chronic normocytic anemia. Labs today showed WBC 6, HGB 7, HCT 26, MCV 97, platelets 432. No signs of active GI bleeding. Per patient she had a normal EGD and colonoscopy within the past few months. primary care team to continue monitoring H&H and transfuse as needed to keep HGB > 7 Thank you very much for allowing me to share in the care of this very nice patient. This report may have been done utilizing a voice recognition system. Attempts have been made to correct errors. However, there may be uncorrected grammatical, spelling, and recognition errors present. GI Consult Note Consult date/time: 12/31/24 08:09 Reason for consult: Chronic diarrhea HPI: Regi Snyder is a 64 year old female with PMSH of HTN, metastasis to bone, stage 4 adenocarcinoma of left lung, gallstones, asthma, hysterectomy. She presented to the ER 12/29/2024 at the request of her PCP for SUDHA and hyponatremia. Patient was seen with family at bedside and daughter/ JAM Abarca on the phone throughout the entire visit. Patient states that she was recently admitted to [facility] and [facility] in September at which time she was diagnosed and treated for Giardia. Patient states that following treatment her diarrhea improved until about 3 weeks ago returned. Per family patient had a colonoscopy performed last month at [facility] which was normal and a normal EGD in September. She denies abdominal pain, nausea, vomiting, bloating, odynophagia, dysphagia, reflux, regurgitation, early satiety, appetite loss, constipation, hematochezia, or melena. She states that over the past few weeks she has lost approximately 10 lb. She states that she is having nonstop liquid bowel movements and tenesmus. Denies any NSAID, aspirin, or anticoagulant use. Family history negative for CRC or IBD. ENDOSCOPY HISTORY: EGD: Per patient and family she had an EGD performed in September which was normal, endoscopy records not available today's visit COLONOSCOPY: per patient and family she had a colonoscopy performed last month at [facility] which was normal, endoscopy records unavailable today's visit LABS AND STOOL STUDIES: Labs 12/31/2025: Sodium 134, potassium 3.1, BUN 15, creatinine 1.55, GFR 33 WBC 6, Hgb 7, Hct 22, MCV 97, platelets 432 Total bilirubin 0.1, AST 16, ALT 11, Alkaline Phos 56, albumin 4.2 Calcium 8.8, phos 3.1 and magnesium 2.0 C-Diff negative 12/29/2024 IMAGING: CT abd/pelvis w/contrast 12/29/2024: IMPRESSION: 1. Minimal pericardial effusion. 2. Minimal thickening of the sigmoid colon wall which may indicate colitis. 3. No evidence of appendicitis, diverticulitis or intestinal obstruction CT chest/abd/pelvis w/contrast 12/23/2024: Impression: Stable irregular nodular density in the posterior left upper lobe which could reflect treated disease or other posttreatment change. Interval decrease in size of hepatic lesion with peripheral calcified lesion, suggestive of response to interval therapy of the hepatic metastatic lesion. Questionable tiny residual splenic hypodense lesion, less apparent as compared to prior exam. Stable sclerotic lesion of T1. Probable diffuse infectious/inflammatory colitis of large bowel versus underdistention. Correlate clinically. Minimal pericardial effusion. CT chest/abd/pelvis w/contrast 09/14/2024: IMPRESSION: 1. No change to minimal decrease in size of a 1.1 cm spiculated nodule along a linear band of scarring at the site of a previously biopsy proven malignancy in the left upper lobe. While reassuring would recommend continued CT surveillance. 2. Decrease in size of hypodense lesions in the liver and spleen, no change in likely linear scarring at the site of a prior mass at the right breast and sclerosis at a previously lytic lesion at the T1 vertebral body consistent with response to treatment of metastatic disease. No lesions suspicious for new or progressive metastatic disease. 3. Small pericardial effusion. 4. Acute to subacute diverticulitis along the descending colon new since 06/05/2024. Review of Systems Constitutional: Constitutional: Reports as per HPI ENT: Reports as per HPI Cardiovascular: Cardiovascular: Reports as per HPI, Denies chest pain and Denies dyspnea Respiratory: Respiratory: Denies cough and Denies dyspnea Gastrointestinal: Gastrointestinal: Reports as per HPI Musculoskeletal: Musculoskeletal: Reports as per HPI Integumentary/Breasts: Skin/Breast: Reports as per HPI Psychiatric: Psychiatric: Reports as per HPI Endocrine: Endocrine: Reports no additional endocrine complaints Hematologic/Lymphatic: Hematologic/Lymphatic: Reports no additional hematologic/lymphatic complaints [facility] Past Medical History Medical History Benign hypertension Metastasis to bone Adenocarcinoma of left lung, stage 4 Secondary malignant neoplasm of brain Gallstone Asthma Surgical History Surgical History H/O hysterectomy for benign disease Family History Family History Father Alcoholism Mother Cirrhosis Sibling Cancer Diabetes mellitus Depression Heart disease Social History Social History Social History: caffeine- coffee 10 tea 1/2 gallon soda 1 can Smoking packs per day: 2 Smoking cigarettes per day: 40.0 Years smoked: 48 Smoking pack-years: 96.00 Smoking status: Former smoker Tobacco type: cigarettes Second hand tobacco smoke exposure: No Alcohol intake: never Substance use: current Substance use type: marijuana Last use: 12/25/24 Do You Feel Safe in your Home?: Yes Lack of Transportation: No Lack of Food: Never True Current Housing: I Have Housing Concerned About Future Housing: No Difficulty Paying Gas/Electric Bills: No Difficulty Paying for Meds: No Currently Unemployed: No Education: High School Diploma/GED Difficulty w/ Childcare or Family Care: No Living arrangements: with family Occupation/Education: retired Gender identity (if verbalized by the patient): Female Sexual Orientation (if Verbalized by the Patient): Straight or Heterosexual Spiritual care concerns: No Meds Home Medications and Allergies Home Medications Medication Instructions Recorded Confirmed Type dexamethasone 4 mg tablet 4 mg PO BID 01/15/24 12/29/24 History folic acid 1 mg tablet 1 mg PO DAILY 01/15/24 12/29/24 History ondansetron 8 mg disintegrating 8 mg PO Q8H 01/15/24 12/29/24 History tablet tramadol 50 mg tablet 50 mg PO DAILY 03/03/24 12/29/24 History calcium 500 mg tablet 500 mg PO BID 04/08/24 12/29/24 History B12 100 mcg PO DAILY 11/12/24 12/29/24 History Lidocaine-Prilocaine 1 dose topical .[id number] 11/12/24 12/29/24 History ferrous sulfate 325 mg (65 mg 325 mg PO DAILY 11/12/24 12/29/24 History iron) tablet (iron) pantoprazole 40 mg tablet,delayed 40 mg PO BID 11/12/24 12/29/24 History release potassium chloride 20 mEq/15 mL 20 meq PO BID 11/12/24 12/29/24 History oral liquid losartan 100 mg tablet 100 mg PO DAILY #90 tabs 12/09/24 12/29/24 Rx Allergies Allergy/AdvReac Type Severity Reaction Status Date / Time No Known Allergies Allergy Verified 12/29/24 16:17 Vital Signs Vital Signs - 24 hr 12/30/24 09:01 12/30/24 10:00 12/30/24 10:00 Temperature 99.2 F Pulse Rate 78 78 Respiratory Rate 22 H Blood Pressure 96/65 L Pulse Oximetry 97 98 Oxygen Delivery Room Air 12/30/24 12:00 12/30/24 12:00 12/30/24 12:00 Temperature 99.4 F Pulse Rate 76 76 76 Respiratory Rate 21 H 21 H Blood Pressure 87/61 L Pulse Oximetry 94 94 Oxygen Delivery Room Air 12/30/24 14:00 12/30/24 14:00 12/30/24 16:00 Temperature 99.4 F Pulse Rate 91 91 86 Respiratory Rate 23 H 23 H Blood Pressure 120/90 Pulse Oximetry 98 98 Oxygen Delivery Room Air 12/30/24 16:00 12/30/24 16:00 12/30/24 18:00 Temperature 99.5 F Pulse Rate 86 86 84 Respiratory Rate 21 H Blood Pressure 102/68 Pulse Oximetry 95 Oxygen Delivery 12/30/24 18:00 12/30/24 20:00 12/30/24 20:00 Temperature 99.4 F Pulse Rate 87 82 Respiratory Rate 22 H Blood Pressure Pulse Oximetry 96 97 Oxygen Delivery Room Air 12/30/24 20:00 12/30/24 21:22 12/30/24 22:00 Temperature 99.6 F Pulse Rate 82 84 89 Respiratory Rate 23 H 20 19 Blood Pressure 118/73 94/61 L Pulse Oximetry 94 94 95 Oxygen Delivery Room Air 12/30/24 22:00 12/31/24 00:00 12/31/24 00:00 Temperature 99.4 F Pulse Rate 89 78 Respiratory Rate 21 H Blood Pressure 108/70 Pulse Oximetry 91 91 Oxygen Delivery Room Air 12/31/24 00:00 12/31/24 02:00 12/31/24 04:00 Temperature Pulse Rate 79 68 Respiratory Rate Blood Pressure Pulse Oximetry 96 Oxygen Delivery Room Air 12/31/24 04:00 12/31/24 04:00 12/31/24 06:00 Temperature 99.2 F Pulse Rate 75 85 75 Respiratory Rate 22 H Blood Pressure 119/79 Pulse Oximetry 96 Oxygen Delivery Exam Const: General: cooperative, healthy appearing, comfortable, no acute distress and well developed Orientation/consciousness: oriented to person, oriented to place, oriented to time and patient oriented x3 HENMT: Head: normal to inspection, normocephalic and atraumatic Mouth: Yes Normal oral and palatal mucosa present and Yes moist mucous membranes Eyes: General: appearance normal, both eyes and all related structures Conjunctivae: conjunctivae normal Sclera: sclerae normal Pupils: Equal, round and reactive pupils present Neck: Neck: normal visual inspection Chest: Chest palpation & inspection: normal inspection of the chest Resp: Effort & Inspection: normal respiratory effort and able to speak in complete sentences Auscultation: clear to auscultation bilaterally Cardio: Jugular venous distension: no JVD Rate: regular rate Rhythm: regular rhythm Heart sounds: S1 normal heart sound present and S2 normal heart sound present GI: Inspection: normal to inspection GI Palp: Yes Soft to palpation and Yes No hepatosplenomegaly present Auscultation: normal bowel sounds Rectal Exam: deferred Skin: General skin exam: normal color and no rashes or lesions noted Neuro: General: oriented to person, oriented to place, oriented to time and patient oriented x3 Cranial nerves: Yes Equal, round and reactive pupils present Speech: normal speech Extrem: General: normal to inspection and no clubbing, cyanosis or edema Psych: Appearance: grossly normal and well kempt Affect: normal affect Results Labs 12/31/24 03:54 12/31/24 03:54 Labs: Short CBC 12/31/24 Range/Units 03:54 WBC 6.2 (4.5-10.0) K/mm3 Hgb 7.2 L (12.0-15.0) g/dL Hct 22.2 L (37.0-47.0) % Plt Count 432 H (150-375) k/mm3 BMP 12/30/24 12/31/24 04:26 03:54 Sodium 132 L 134 L Potassium 4.1 3.1 L Chloride 105 106 Carbon Dioxide 17 L 18 L BUN 29 H 15 D Creatinine 2.78 H 1.55 H Glucose 84 89 Calcium 7.8 L 8.8 Liver Function 12/30/24 12/31/24 Range/Units 04:26 03:54 Total Bilirubin 0.2 0.1 L (0.2-1.3) mg/dL AST 21 16 (14-36) U/L ALT 13 11 (6-35) U/L Alkaline Phosphatase 58 56 (38-126) U/L Albumin 3.2 L 4.2 (3.5-5.1) g/dL
[2024-12-31] MEDS: CALCIUM CARBONATE (OSCAL) 500 MG TABLET PO ×2 (08:18→16:37)
[2024-12-31] MEDS: ACETAMINOPHEN 325 MG TABLET 650 MG PO ×2 (08:18→18:19)
[2024-12-31] MEDS: PANTOPRAZOLE 40 MG TABLET PO ×2 (08:18→20:38)
[2024-12-31] MEDS: FOLIC ACID 1 MG TABLET PO (08:18)
[2024-12-31] MEDS: POTASSIUM CHLORIDE 20 MEQ PACKET (FOR LIQUID) 40 MEQ PO ×2 (08:18→12:08)
[2024-12-31] MEDS: ENOXAPARIN 30 MG/0.3 ML SYRINGE SUB-Q (08:20)
--- NOTE | 2024-12-31 09:02 | PM.IMPN ---
Progress Note: A&P Assessment and Plan (1) Acute hypotension: Code(s): I95.9 - Hypotension, unspecified Status: Acute Assessment and Plan: Acute hypotension secondary to hypovolemia and dehydration from diarrhea Improved with IV fluids Normal lactic acid level (2) Acute renal failure (ARF): Code(s): N17.9 - Acute kidney failure, unspecified Status: Acute Assessment and Plan: SUDHA with baseline chronic kidney disease likely secondary to hypovolemia and dehydration. Presented with creatinine of 4.4 for which has improved to 1.5 Will hold further IV fluid Nephrology consulted and following Replace low potassium Renal ultrasound negative for any hydronephrosis or stones Monitor urine output electrolytes and creatinine (3) CKD (chronic kidney disease): Code(s): N18.9 - Chronic kidney disease, unspecified Status: Acute Assessment and Plan: See above (4) Acute dehydration: Code(s): E86.0 - Dehydration Status: Acute Assessment and Plan: Secondary to diarrhea Patient has been receiving crystalloid fluids and urine output has improved Improved. Off IV fluids now (5) Adenocarcinoma of left lung, stage 4: Code(s): C34.92 - Malignant neoplasm of unspecified part of left bronchus or lung Status: Acute Assessment and Plan: Patient has stage IV lung cancer and is currently on chemotherapy. Most recent chemotherapy session was not done due to patient being dehydrated and hypovolemic (6) Diarrhea: Code(s): R19.7 - Diarrhea, unspecified Status: Acute Assessment and Plan: Patient presented with diarrhea for last 2 weeks. She was recently diagnosed and treated for Giardia infection in September 2024 She also is on chemotherapy and takes IV CT scan of the abdomen pelvis showed minimal thickening of sigmoid colon suggestive of colitis Stool negative for C diff Continue Rocephin and Flagyl Stool for Giardia Shivani pending GI consult (7) Colitis: Code(s): K52.9 - Noninfective gastroenteritis and colitis, unspecified Status: Acute Assessment and Plan: See above (8) UTI (urinary tract infection): Code(s): N39.0 - Urinary tract infection, site not specified Status: Acute Assessment and Plan: She denies any symptoms but he was suggestive of UTI. Patient is currently on Rocephin. Cultures ordered and pending. (9) Hyponatremia: Code(s): E87.1 - Hypo-osmolality and hyponatremia Status: Acute Assessment and Plan: Patient presented with sodium level of 130 which dipped down to 128 but has now slowly improved to 134 Likely secondary to combination of dehydration and patient also has lung cancer Monitor Plan DVT prophylaxis -Lovenox Nutrition -diet ordered Code Status -patient wishes to be DNR DNI. This was confirmed by her POA her granddaughter at bedside Subjective Date/time seen: 12/31/24 Overnight events reviewed. Afebrile On room air Tolerating p.o. diet. Good urine output. She had 1 loose bowel movement overnight She states she has chronic back pain for and her diarrhea has improved but not fully resolved. She denies any other complaints. Patient denies fever, chest pain, shortness of breath, cough, nausea vomiting, abdominal pain,, headache or constipation. All other systems were reviewed and were negative Other Vitals acceptable Review of Systems Review of Systems: All systems reviewed & are unremarkable except as noted in HPI and below (HPI) Exam Narrative: General: Pt is alert awake and in NAD Lungs/Chest: Trachea central Clear BS B/L, No crackles or wheezing. Cardiac: RRR. Normal S1 S2. No murmurs Circulation: Pedal pulses are intact and symmetrical. Abdomen: Normal bowel sounds.. Soft. NT. ND. Extremities: No clubbing, cyanosis or edema. Warm : Min in place Neurologic: Follows commands. Moves all 4 extremities PERRL AO x3 Skin: No Rash Objective Data Vital Signs Vital Signs: Vital Signs - 24 hr 12/30/24 10:00 12/30/24 10:00 12/30/24 12:00 Temperature 37.3 C Pulse Rate 78 78 76 Respiratory Rate 22 H 21 H Blood Pressure 96/65 L Pulse Oximetry 98 94 Oxygen Delivery Room Air 12/30/24 12:00 12/30/24 12:00 12/30/24 14:00 Temperature 37.4 C Pulse Rate 76 76 91 Respiratory Rate 21 H Blood Pressure 87/61 L Pulse Oximetry 94 Oxygen Delivery 12/30/24 14:00 12/30/24 16:00 12/30/24 16:00 Temperature 37.4 C Pulse Rate 91 86 86 Respiratory Rate 23 H 23 H Blood Pressure 120/90 Pulse Oximetry 98 98 Oxygen Delivery Room Air 12/30/24 16:00 12/30/24 18:00 12/30/24 18:00 Temperature 37.5 C 37.4 C Pulse Rate 86 84 87 Respiratory Rate 21 H 22 H Blood Pressure 102/68 Pulse Oximetry 95 96 Oxygen Delivery 12/30/24 20:00 12/30/24 20:00 12/30/24 20:00 Temperature 37.6 C Pulse Rate 82 82 Respiratory Rate 23 H Blood Pressure 118/73 Pulse Oximetry 97 94 Oxygen Delivery Room Air 12/30/24 21:22 12/30/24 22:00 12/30/24 22:00 Temperature Pulse Rate 84 89 89 Respiratory Rate 20 19 Blood Pressure 94/61 L Pulse Oximetry 94 95 Oxygen Delivery Room Air 12/31/24 00:00 12/31/24 00:00 12/31/24 00:00 Temperature 37.4 C Pulse Rate 78 79 Respiratory Rate 21 H Blood Pressure 108/70 Pulse Oximetry 91 91 Oxygen Delivery Room Air 12/31/24 02:00 12/31/24 04:00 12/31/24 04:00 Temperature Pulse Rate 68 75 Respiratory Rate Blood Pressure Pulse Oximetry 96 Oxygen Delivery Room Air 12/31/24 04:00 12/31/24 06:00 Temperature 37.3 C Pulse Rate 85 75 Respiratory Rate 22 H Blood Pressure 119/79 Pulse Oximetry 96 Oxygen Delivery Intake/Output Intake/Output: Intake & Output 12/28/24 12/29/24 12/30/24 12/31/24 23:59 23:59 23:59 23:59 Intake Total 3000 4380 1650 Output Total 2450 850 Balance 3000 1930 800 Meds/Results Medications: Active Medications Generic Name Dose Route Start Last Admin Trade Name Calixto PRN Reason Stop Dose Admin Acetaminophen 650 mg 12/29/24 13:12 12/31/24 08:18 Acetaminophen 325 Mg Tablet PO 650 mg Q4H PRN Administration Mild Pain (1-3) or Fever Calcium Carbonate 500 mg 12/31/24 09:00 12/31/24 08:18 Calcium Carbonate (Oscal) 500 Mg Tablet PO 01/30/25 08:59 500 mg BID LISSETTE Administration Enoxaparin Sodium 30 mg 12/31/24 09:00 12/31/24 08:20 Enoxaparin 30 Mg/0.3 Ml Syringe SUB-Q 30 mg DAILY LISSETTE Administration Folic Acid 1 mg 12/31/24 09:00 12/31/24 08:18 Folic Acid 1 Mg Tablet PO 1 mg DAILY LISSETTE Administration Ceftriaxone Sodium 1 gm in 50 mls @ 100 mls/hr 12/30/24 11:00 12/30/24 10:28 Rocephin 1 Gm/Ns 50 Ml IVPB 100 mls/hr Q24H LISSETTE Administration Metronidazole 500 mg in 100 mls @ 100 mls/hr 12/30/24 11:00 12/31/24 04:28 Flagyl 500 Mg/Iso Soln 100 Ml IVPB Infused Q8H LISSETTE Infusion Pantoprazole Sodium 40 mg 12/31/24 09:00 12/31/24 08:18 Pantoprazole 40 Mg Tablet PO 40 mg Q12HR LISSETTE Administration Potassium Chloride 40 meq 12/31/24 07:30 12/31/24 08:18 Potassium Chloride 20 Meq Packet (For Liquid) PO 12/31/24 11:31 40 meq Q4H LISSETTE Administration Tramadol HCl 50 mg 12/29/24 21:29 12/30/24 20:17 Tramadol Hcl (*Crx) 50 Mg Tablet PO 50 mg Q6H PRN Administration Pain Rated 4-6 Radiology Results: ITS Impressions Abdomen/Pelvis CT 12/29/24 13:23 IMPRESSION: 1. Minimal pericardial effusion. 2. Minimal thickening of the sigmoid colon wall which may indicate colitis. 3. No evidence of appendicitis, diverticulitis or intestinal obstruction Renal Ultrasound 12/29/24 22:28 IMPRESSION: No hydronephrosis or renal calculi. The bladder is decompressed, limiting its evaluation Labs Labs: Laboratory Results - last 24 hr 12/30/24 12/31/24 04:26 03:54 WBC 6.2 RBC 2.29 L Hgb 7.2 L Hct 22.2 L MCV 96.9 MCH 31.4 MCHC 32.4 RDW 14.6 H Plt Count 432 H MPV 8.8 Immature Gran % (Auto) Not Reportable Neut % (Auto) Not Reportable Lymph % (Auto) Not Reportable [place] % (Auto) Not Reportable Eos % (Auto) Not Reportable Baso % (Auto) Not Reportable Lymph # (Auto) Not Reportable [place] # (Auto) Not Reportable Eos # (Auto) Not Reportable Baso # (Auto) Not Reportable Abs Immat Gran (auto) Not Reportable Absolute Neuts (auto) Not Reportable Absolute Nucleated RBC Not Reportable Total Counted 100 Neutrophils % (Manual) 57 Band Neutrophils % 7 H Lymphocytes % (Manual) 20 Monocytes % (Manual) 13 H Eosinophils % (Manual) 2 Basophils % (Manual) 1 Nucleated RBC % Not Reportable Abs Neuts (Manual) 3.96 Abs Lymphs (Manual) 1.24 Abs Monocytes (Manual) 0.80 Absolute Eos (Manual) 0.12 Abs Basophils (Manual) 0.06 Platelet Estimate Increased Ovalocytes 1+ [place] Cells 1+ Schistocytes None seen Sodium 134 L Potassium 3.1 L Chloride 106 Carbon Dioxide 18 L Anion Gap 10 BUN 15 D Creatinine 1.55 H Estim Creat Clear Calc 24 Estimated GFR 33 L Glucose 89 Calcium 8.8 Phosphorus 3.1 Magnesium 1.6 2.0 Total Bilirubin 0.1 L AST 16 ALT 11 Alkaline Phosphatase 56 Total Protein 6.0 L Albumin 4.2 Quality VTE Prophylaxis VTE prophylaxis: pharmacologic ordered
--- NOTE | 2024-12-31 11:41 | PC.NURSE ---
This patient, Regi Snyder, was transferred to [[id number] ] on 12/31/24 at 1130. Personal belongings sent with patient. Report given to [ Long DOYLE]. Appropriate documentation sent with patient.
[2024-12-31] MEDS: LOPERAMIDE HCL 2 MG CAPSULE PO ×2 (12:08→16:37)
--- NOTE | 2024-12-31 13:25 | P.PNNP_ITS ---
Progress Note: A&P Assessment and Plan (1) Acute kidney injury: Code(s): N17.9 - Acute kidney failure, unspecified Status: Acute Assessment and Plan: * improvement noted * as noted on admission * multifactorial etiology: * prerenal factors (diarrhea) * hemodynamic instability/hypotension * infection/early sepsis(?) * use of ARB prior to admission * other(?) * evaluation to date noted: * renal ultrasound without obstruction * urine electrolytes are prerenal * urine eosinophils negative * CPK normal * mild proteinuria * on IVF resuscitation * optimized hemodynamics as tolerated * hold losartan * follow trend of repeat labs and UOP (2) Stage 3a chronic kidney disease: Code(s): N18.31 - Chronic kidney disease, stage 3a Status: Chronic Assessment and Plan: * baseline creatinine runs ~ 0.9 - 1.2mg/dl * presumably due to hypertension and age-related change (3) Hypotension: Code(s): I95.9 - Hypotension, unspecified Status: Acute Assessment and Plan: * improving * felt to be secondary to hypovolemia/volume depletion/dehydration from diarrhea * clinically better with IVF resuscitation * monitor for the need for vasopressor therapy * lactic acid normal * follow trend of hemodynamics (4) Metabolic acidosis: Code(s): E87.20 - Acidosis, unspecified Status: Acute Assessment and Plan: * due to acute kidney injury/acute renal failure in conjunction from GI losses (diarrhea) * follow trend of CO2 * may need to consider adding oral sodium bicarb to compensate (5) Hyponatremia: Code(s): E87.1 - Hypo-osmolality and hyponatremia Status: Chronic Assessment and Plan: * has been present as far back as early 2023 * probably due to a combination of SUDHA, volume depletion, and underlying malignancy/cancer * follow trend (6) Diarrhea: Qualifiers: Diarrhea type: presumed infectious Qualified Code(s): R19.7 - Diarrhea, unspecified Code(s): R19.7 - Diarrhea, unspecified Status: Acute Assessment and Plan: * reportedly present x 2 weeks prior to presentation * 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 * also is on chemotherapy as well * CT scan of the abdomen pelvis showed minimal thickening of sigmoid colon suggestive of colitis * stool negative for C diff toxin * follow stool cultures * empirically on antibiotics (7) UTI (urinary tract infection): Code(s): N39.0 - Urinary tract infection, site not specified Status: Acute Assessment and Plan: * admission urinalysis suggestive * no urine culture done * on antibiotics (8) Adenocarcinoma of left lung, stage 4: Code(s): C34.92 - Malignant neoplasm of unspecified part of left bronchus or lung Status: Chronic Assessment and Plan: * known diagnosis * currently on chemotherapy * follows with Hem/Onc Will continue to follow. L Subjective Date/time seen: 12/31/24 13:25 Interval history: Follow-up for acute kidney injury/acute renal failure on chronic kidney disease. Transferred out to the floor earlier today; renal function/creatinine continues to improve as noted by trend of labs; however, still reports ongoing diarrhea although she is able to eat and drink reasonably well; no other acute complaints voiced at the time of my visit. Exam 2 Narrative: General: elderly but WD/WN [place] female in NAD Heart: normal S1 and S2; no rub Lungs: clear to auscultation Abdomen: soft, nontender, nondistended, positive bowel sounds Extremities: no cyanosis or clubbing; no edema Skin: warm and intact Objective Data Vital Signs Vital Signs: Vital Signs Temp Pulse Resp BP Pulse Ox O2 Del Method 12/31/24 12:00 77 12/31/24 08:00 99.7 F H 79 14 146/89 H 95 12/31/24 08:00 75 12/31/24 08:00 75 22 H 96 Room Air 12/31/24 06:00 75 12/31/24 04:00 99.2 F 85 22 H 119/79 96 12/31/24 04:00 75 12/31/24 04:00 96 Room Air 12/31/24 02:00 68 12/31/24 00:00 79 12/31/24 00:00 99.4 F 78 21 H 108/70 91 12/31/24 00:00 91 Room Air 12/30/24 22:00 89 12/30/24 22:00 89 19 94/61 L 95 12/30/24 21:22 84 20 94 Room Air 12/30/24 20:00 99.6 F 82 23 H 118/73 94 12/30/24 20:00 82 12/30/24 20:00 97 Room Air Intake/Output Intake/Output: Intake & Output 05/05/12/29/24 12/30/24 12/31/24 23:59 23:59 23:59 23:59 Intake Total 3000 4444 1420 Output Total 2450 850 Balance 3000 1980 1540 Meds/Results Medications: Active Medications Generic Name Dose Route Start Last Admin Trade Name Freq PRN Reason Stop Dose Admin Acetaminophen 650 mg 12/29/24 13:12 12/31/24 08:18 Acetaminophen 325 Mg Tablet PO 650 mg Q4H PRN Administration Mild Pain (1-3) or Fever Calcium Carbonate 500 mg 12/31/24 09:00 12/31/24 16:37 Calcium Carbonate (Oscal) 500 Mg Tablet PO 01/30/25 08:59 500 mg BID LISSETTE Administration Enoxaparin Sodium 30 mg 12/31/24 09:00 12/31/24 08:20 Enoxaparin 30 Mg/0.3 Ml Syringe SUB-Q 30 mg DAILY LISSETTE Administration Folic Acid 1 mg 12/31/24 09:00 12/31/24 08:18 Folic Acid 1 Mg Tablet PO 1 mg DAILY LISSETTE Administration Ceftriaxone Sodium 1 gm in 50 mls @ 100 mls/hr 12/30/24 11:00 12/31/24 12:39 Rocephin 1 Gm/Ns 50 Ml IVPB Infused Q24H LISSETTE Infusion Metronidazole 500 mg in 100 mls @ 100 mls/hr 12/30/24 11:00 12/31/24 13:47 Flagyl 500 Mg/Iso Soln 100 Ml IVPB Infused Q8H LISSETTE Infusion Loperamide HCl 2 mg 12/31/24 10:05 12/31/24 16:37 Loperamide Hcl 2 Mg Capsule PO 2 mg BID LISSETTE Administration Pantoprazole Sodium 40 mg 12/31/24 09:00 12/31/24 08:18 Pantoprazole 40 Mg Tablet PO 40 mg Q12HR LISSETTE Administration Saccharomyces Boulardii 250 mg 12/31/24 17:00 12/31/24 16:37 Saccharomyces Boulardii 250 Mg Capsule PO 250 mg BID LISSETTE Administration Tramadol HCl 50 mg 12/29/24 21:29 12/30/24 20:17 Tramadol Hcl (*Crx) 50 Mg Tablet PO 50 mg Q6H PRN Administration Pain Rated 4-6 Radiology Results: ITS Impressions Abdomen/Pelvis CT 12/29/24 13:23 IMPRESSION: 1. Minimal pericardial effusion. 2. Minimal thickening of the sigmoid colon wall which may indicate colitis. 3. No evidence of appendicitis, diverticulitis or intestinal obstruction Renal Ultrasound 12/29/24 22:28 IMPRESSION: No hydronephrosis or renal calculi. The bladder is decompressed, limiting its evaluation Labs Labs: Laboratory Tests 12/31/24 03:54 12/31/24 03:54 Calcium 8.8 Phosphorus 3.1 Magnesium 2.0 Total Bilirubin 0.1 L AST 16 ALT 11 Alkaline Phosphatase 56 Total Protein 6.0 L Albumin 4.2 Microbiology 12/29/24 15:49 Stool Stool for WBCs - Final 12/29/24 15:49 Blood Blood Culture - Preliminary 12/29/24 15:49 Blood Blood Culture - Preliminary 12/29/24 15:49 Stool Escherichia coli Shiga Toxins - Final 12/29/24 15:49 Stool Campylobacter Antigen Assay - Final
[2024-12-31] MEDS: SACCHAROMYCES BOULARDII 250 MG CAPSULE PO (16:37)
--- NOTE | 2024-12-31 18:20 | P.PNIM_ITS ---
Progress Note: A&P Assessment and Plan (1) Acute hypotension: Code(s): I95.9 - Hypotension, unspecified Status: Acute Assessment and Plan: ED discussed case with ICU attending recommending fluid bolus at this time, CT abdomen, and stool testing Patient accepted to ICU Sepsis bolus CT showing some colitis IV cefepime, Flagyl Blood cultures pending Stool cultures pending Lactic acid 1.1 (2) Acute renal failure (ARF): Code(s): N17.9 - Acute kidney failure, unspecified Status: Acute Assessment and Plan: Likely due to acute dehydration from diarrhea Aggressive fluid hydration Nephrology consult pending recommendations Repeat labs in a.m. Urine study L (3) Acute dehydration: Code(s): E86.0 - Dehydration Status: Acute Assessment and Plan: See above (4) Acute hyponatremia: Code(s): E87.1 - Hypo-osmolality and hyponatremia Status: Acute Assessment and Plan: Repeat sodium after fluid bolus stable Nephrology consulted (5) Anemia: Code(s): D64.9 - Anemia, unspecified Status: Acute Assessment and Plan: Repeat hemoglobin at 8:00 p.m. Slight drop in hemoglobin likely due to delusional Transfuse for hemoglobin less than 7 or symptomatic No need for transfusion at this time (6) Benign hypertension: Code(s): I10 - Essential (primary) hypertension Status: Acute Assessment and Plan: Hold antihypertensives now due to severe hypotension Plan 64 y/o female presented with SUDHA and hyponatremia with complaint of persistent diarrhea 2/2 Giardia infection, this may have dehydration resulting in SUDHA and hyponatremia, patient is being hydrated, her kidney function is improving as we ll as her sodium levels, patient/s frequency of diarrhea, have improved, patient was seen by knockout machine operator, will monitor and follow. patient and family denied any foreign travel and not sure sure how she came in contact with Giardia. so far all stool culture are negative, will continue to monitor Subjective Date/time seen: 12/31/24 18:20 Interval history: Abnormal lab work H&P-Narrative: 64-year-old female found to have SUDHA and hyponatremia by her PCP sent to the [facility] further evaluation. she had giardia and was treated but still having diarrhea and not drinking enough fluids. Patient states that she has not and vomiting in she is taking in food okay. Per the nursing she has had a bowel movement about every hour. C diff is negative, other stool samples pending. Patient denies abdominal pain at this time, fever or chills. In the ED her lab work showed anemia at 10.8 which is around baseline, sodium of 128, carbon dioxide 12, anion gap 18, BUN of 37, creatinine of 4.45 with baseline being around 1.1. Due to hypotension not responding to aggressive fluid bolus patient is being sent to ICU for acute dehydration and SUDHA. 64 y/o female presented with SUDHA and hyponatremia with complaint of persistent diarrhea 2/2 Giardia infection, this may have dehydration resulting in SUDHA and hyponatremia, patient is being hydrated, her kidney function is improving as well as her sodium levels, patient/s frequency of diarrhea, have improved, patient was seen by knockout machine operator, will monitor and follow. patient and family denied any foreign travel and not sure sure how she came in contact with Giardia. so far all stool culture are negative, will continue to monitor Review of Systems Review of Systems: 12 systems were reviewed and are negativ e except for as per HPI. Exam Narrative: Patient is comfortable, NAD HEENT: eyes are clear and none icteric LUNGS:CTA HEART: RR S1S2 ABD: BS+, Soft and nontender Lower extremities: no edema SKIN: nonjaundiced Neuro: grossly intact. Objective Data Vital Signs Vital Signs: Vital Signs - 24 hr 12/30/24 20:00 12/30/24 20:00 12/30/24 20:00 Temperature 37.6 C Pulse Rate 82 82 Respiratory Rate 23 H Blood Pressure 118/73 Pulse Oximetry 97 94 Oxygen Delivery Room Air 12/30/24 21:22 12/30/24 22:00 12/30/24 22:00 Temperature Pulse Rate 84 89 89 Respiratory Rate 20 19 Blood Pressure 94/61 L Pulse Oximetry 94 95 Oxygen Delivery Room Air 12/31/24 00:00 12/31/24 00:00 12/31/24 00:00 Temperature 37.4 C Pulse Rate 78 79 Respiratory Rate 21 H Blood Pressure 108/70 Pulse Oximetry 91 91 Oxygen Delivery Room Air 12/31/24 02:00 12/31/24 04:00 12/31/24 04:00 Temperature Pulse Rate 68 75 Respiratory Rate Blood Pressure Pulse Oximetry 96 Oxygen Delivery Room Air 12/31/24 04:00 12/31/24 06:00 12/31/24 08:00 Temperature 37.3 C Pulse Rate 85 75 75 Respiratory Rate 22 H 22 H Blood Pressure 119/79 Pulse Oximetry 96 96 Oxygen Delivery Room Air 12/31/24 08:00 12/31/24 08:00 12/31/24 12:00 Temperature 37.6 C H Pulse Rate 75 79 77 Respiratory Rate 14 Blood Pressure 146/89 H Pulse Oximetry 95 Oxygen Delivery 12/31/24 15:22 12/31/24 15:59 12/31/24 16:00 Temperature 36.4 C L Pulse Rate 77 Respiratory Rate 16 Blood Pressure 140/98 H Pulse Oximetry 98 Oxygen Delivery Room Air Room Air 12/31/24 16:00 Temperature Pulse Rate 95 Respiratory Rate Blood Pressure Pulse Oximetry Oxygen Delivery Intake/Output Intake/Output: Intake & Output 12/28/24 12/29/24 12/30/24 12/31/24 23:59 23:59 23:59 23:59 Intake Total 3000 4430 2390 Output Total 2450 850 Balance 3000 1980 1540 Meds/Results Medications: Active Medications Generic Name Dose Route Start Last Admin Trade Name Freq PRN Reason Stop Dose Admin Acetaminophen 650 mg 12/29/24 13:12 12/31/24 18:19 Acetaminophen 325 Mg Tablet PO 650 mg Q4H PRN Administration Mild Pain (1-3) or Fever Calcium Carbonate 500 mg 12/31/24 09:00 12/31/24 16:37 Calcium Carbonate (Oscal) 500 Mg Tablet PO 01/30/25 08:59 500 mg BID LISSETTE Administration Enoxaparin Sodium 30 mg 12/31/24 09:00 12/31/24 08:20 Enoxaparin 30 Mg/0.3 Ml Syringe SUB-Q 30 mg DAILY LISSETTE Administration Folic Acid 1 mg 12/31/24 09:00 12/31/24 08:18 Folic Acid 1 Mg Tablet PO 1 mg DAILY LISSETTE Administration Ceftriaxone Sodium 1 gm in 50 mls @ 100 mls/hr 12/30/24 11:00 12/31/24 12:39 Rocephin 1 Gm/Ns 50 Ml IVPB Infused Q24H LISSETTE Infusion Metronidazole 500 mg in 100 mls @ 100 mls/hr 12/30/24 11:00 12/31/24 18:15 Flagyl 500 Mg/Iso Soln 100 Ml IVPB 100 mls/hr Q8H LISSETTE Administration Loperamide HCl 2 mg 01/01/25 09:00 Loperamide Hcl 2 Mg Capsule PO TID LISSETTE Pantoprazole Sodium 40 mg 12/31/24 09:00 12/31/24 08:18 Pantoprazole 40 Mg Tablet PO 40 mg Q12HR LISSETTE Administration Saccharomyces Boulardii 250 mg 12/31/24 17:00 12/31/24 16:37 Saccharomyces Boulardii 250 Mg Capsule PO 250 mg BID LISSETTE Administration Tramadol HCl 50 mg 12/29/24 21:29 12/30/24 20:17 Tramadol Hcl (*Crx) 50 Mg Tablet PO 50 mg Q6H PRN Administration Pain Rated 4-6 Radiology Results: ITS Impressions Abdomen/Pelvis CT 12/29/24 13:23 IMPRESSION: 1. Minimal pericardial effusion. 2. Minimal thickening of the sigmoid colon wall which may indicate colitis. 3. No evidence of appendicitis, diverticulitis or intestinal obstruction Renal Ultrasound 12/29/24 22:28 IMPRESSION: No hydronephrosis or renal calculi. The bladder is decompressed, limiting its evaluation Labs Labs: Laboratory Results - last 24 hr 12/31/24 03:54 WBC 6.2 RBC 2.29 L Hgb 7.2 L Hct 22.2 L MCV 96.9 MCH 31.4 MCHC 32.4 RDW 14.6 H Plt Count 432 H MPV 8.8 Immature Gran % (Auto) Not Reportable Neut % (Auto) Not Reportable Lymph % (Auto) Not Reportable [place] % (Auto) Not Reportable Eos % (Auto) Not Reportable Baso % (Auto) Not Reportable Lymph # (Auto) Not Reportable [place] # (Auto) Not Reportable Eos # (Auto) Not Reportable Baso # (Auto) Not Reportable Abs Immat Gran (auto) Not Reportable Absolute Neuts (auto) Not Reportable Absolute Nucleated RBC Not Reportable Total Counted 100 Neutrophils % (Manual) 57 Band Neutrophils % 7 H Lymphocytes % (Manual) 20 Monocytes % (Manual) 13 H Eosinophils % (Manual) 2 Basophils % (Manual) 1 Nucleated RBC % Not Reportable Abs Neuts (Manual) 3.96 Abs Lymphs (Manual) 1.24 Abs Monocytes (Manual) 0.80 Absolute Eos (Manual) 0.12 Abs Basophils (Manual) 0.06 Platelet Estimate Increased Ovalocytes 1+ Coulter Cells 1+ Schistocytes None seen Sodium 134 L Potassium 3.1 L Chloride 106 Carbon Dioxide 18 L Anion Gap 10 BUN 15 D Creatinine 1.55 H Estim Creat Clear Calc 24 Estimated GFR 33 L Glucose 89 Calcium 8.8 Phosphorus 3.1 Magnesium 2.0 Total Bilirubin 0.1 L AST 16 ALT 11 Alkaline Phosphatase 56 Total Protein 6.0 L Albumin 4.2 Quality VTE Prophylaxis VTE prophylaxis: pharmacologic ordered
[2025-01-01] VITALS (9 sets, daily range): BP systolic 111–129; BP diastolic 53–69; PULSE 72–100; RESP 16–18; TEMP 36.6–37.1; O2SAT 93–98
[2025-01-01] MEDS: metroNIDAZOLE 500 MG/ISO 100ML 500 MG/100 ML BAG 100 MG IVPB ×3 (03:11→18:46)
[2025-01-01 05:00] LABS: Hematocrit 25.1 % (37.0-47.0); Mean Corpuscular HGB Conc 31.9 g/dl (32-36); Mean Corpuscular Volume 97.3 fl (80-100); Mean Platelet Volume 8.7 fl (7.4-10.4); Platelet Count Result 440 k/mm3 (150-375); Red Blood Count 2.58 M/mm3 (4.2-5.4); Red Cell Distribution Width 14.7 % (11.5-14.5); White Blood Count 10.2 K/mm3 (4.5-10.0)
[2025-01-01 05:19] LABS: Alanine Aminotransferase 11 U/L (6-35); Alkaline Phosphatase 62 U/L (38-126); Anion Gap 10 mmol/L (4-12); Aspartate Amino Transferase 20 U/L (14-36); Bilirubin,Total 0.2 mg/dL (0.2-1.3); Blood Urea Nitrogen 7 mg/dL (7-17); Calcium 8.7 mg/dL (8.4-10.2); Carbon Dioxide 21 mmol/L (22-30); Chloride 107 mmol/L (98-107); Estimated CRCL calculation 34 ml/min; Estimated Glomerular Filt Rate 43; Glucose 93 mg/dL (65-110); Magnesium 1.6 mg/dL (1.6-2.3); Phosphorus 2.2 mg/dL (2.5-4.5); Potassium 3.9 mmol/L (3.4-5.0); Sodium 138 mmol/L (137-145)
[2025-01-01 05:33] LABS: Band Neutrophils Percent 5 % (0-6); Basophils Percent Manual 1 % (0-1); Eosinophils Percent Manual 2 % (0-4); Lymphocytes Absolute Manual 1.22 K/mm3 (1.1-4.5); Lymphocytes Percent Manual 12 % (18-44); Monocytes Absolute Manual 1.12 K/mm3 (0.1-0.90); Monocytes Percent Manual 11 % (3-9); Total Cells Counted 100
[2025-01-01 05:34] LABS: Anisocytosis 1+; Neutrophils Absolute Manual 7.54 K/mm3 (1.7-7.2); Neutrophils Percent Manual 69 % (46-73); Ovalocytes 1+; Platelet Estimate Slightly Increased (Adequate); Schistocytes None Seen
[2025-01-01] MEDS: SACCHAROMYCES BOULARDII 250 MG CAPSULE PO ×2 (08:27→16:20)
[2025-01-01] MEDS: PANTOPRAZOLE 40 MG TABLET PO ×2 (08:27→21:10)
[2025-01-01] MEDS: ENOXAPARIN 40 MG/0.4 ML SYRINGE SUB-Q (08:27)
[2025-01-01] MEDS: FOLIC ACID 1 MG TABLET PO (08:27)
[2025-01-01] MEDS: LOPERAMIDE HCL 2 MG CAPSULE PO ×3 (08:27→16:20)
[2025-01-01] MEDS: CALCIUM CARBONATE (OSCAL) 500 MG TABLET PO ×2 (08:27→16:20)
--- NOTE | 2025-01-01 10:53 | P.PNNP_ITS ---
Progress Note: A&P Assessment and Plan (1) Acute kidney injury: Code(s): N17.9 - Acute kidney failure, unspecified Status: Acute Assessment and Plan: * improvement noted (if not back to baseline) * as noted on admission * multifactorial etiology: * prerenal factors (diarrhea) * hemodynamic instability/hypotension * infection/early sepsis(?) * use of ARB prior to admission * other(?) * evaluation to date noted: * renal ultrasound without obstruction * urine electrolytes are prerenal * urine eosinophils negative * CPK normal * mild proteinuria * s/p IVF resuscitation * optimized hemodynamics as tolerated * hold losartan * follow trend of repeat labs and UOP (2) Stage 3a chronic kidney disease: Code(s): N18.31 - Chronic kidney disease, stage 3a Status: Chronic Assessment and Plan: * baseline creatinine runs ~ 0.9 - 1.2mg/dl * presumably due to hypertension and age-related change (3) Hypotension: Code(s): I95.9 - Hypotension, unspecified Status: Acute Assessment and Plan: * improving * felt to be secondary to hypovolemia/volume depletion/dehydration from diarrhea * clinically better with IVF resuscitation * monitor for the need for vasopressor therapy * lactic acid normal * follow trend of hemodynamics (4) Metabolic acidosis: Code(s): E87.20 - Acidosis, unspecified Status: Acute Assessment and Plan: * due to acute kidney injury/acute renal failure in conjunction from GI losses (diarrhea) * follow trend of CO2 * may need to consider adding oral sodium bicarb to compensate (5) Hyponatremia: Code(s): E87.1 - Hypo-osmolality and hyponatremia Status: Chronic Assessment and Plan: * has been present as far back as early 2023 * probably due to a combination of SUDHA, volume depletion, and underlying malignancy/cancer * follow trend (6) Diarrhea: Qualifiers: Diarrhea type: presumed infectious Qualified Code(s): R19.7 - Diarrhea, unspecified Code(s): R19.7 - Diarrhea, unspecified Status: Acute Assessment and Plan: * reportedly present x 2 weeks prior to presentation * 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 * also is on chemotherapy as well * CT scan of the abdomen pelvis showed minimal thickening of sigmoid colon suggestive of colitis * stool negative for C diff toxin * follow stool cultures - negative to date * started on immodium * empirically on antibiotics (7) UTI (urinary tract infection): Code(s): N39.0 - Urinary tract infection, site not specified Status: Acute Assessment and Plan: * admission urinalysis suggestive * no urine culture done * on antibiotics (8) Adenocarcinoma of left lung, stage 4: Code(s): C34.92 - Malignant neoplasm of unspecified part of left bronchus or lung Status: Chronic Assessment and Plan: * known diagnosis * currently on chemotherapy * follows with Hem/Onc Will continue to follow. L Subjective Date/time seen: 01/01/25 10:53 Interval history: Follow-up for acute kidney injury/acute renal failure on chronic kidney disease. Continues to have on/off diarrhea and she thinks it maybe a little worse than yesterday; renal function/creatinine continues to improve; no other issues/events overnight or earlier this morning; in spite or diarrhea, reports eating and drinking reasonably well. Exam 2 Narrative: General: elderly but WD/WN female in NAD Heart: normal S1 and S2; no rub Lungs: clear to auscultation Abdomen: soft, nontender, nondistended, positive bowel sounds Extremities: no cyanosis or clubbing; no edema Skin: no rash or nodules Objective Data Vital Signs Vital Signs: Vital Signs Temp Pulse Resp BP Pulse Ox 01/01/25 10:40 97.9 F 92 18 111/55 L 97 01/01/25 08:30 87 01/01/25 04:28 98.4 F 88 16 129/69 98 01/01/25 04:00 74 01/01/25 00:00 72 12/31/24 20:58 98.6 F 92 16 136/67 96 12/31/24 20:00 96 Intake/Output Intake/Output: Intake & Output 12/29/24 12/30/24 12/31/24 01/01/25 23:59 23:59 23:59 23:59 Intake Total 3000 4430 2970 1960 Output Total 2450 1800 1725 Balance 3000 1980 1170 235 Meds/Results Medications: Active Medications Generic Name Dose Route Start Last Admin Trade Name Freq PRN Reason Stop Dose Admin Acetaminophen 650 mg 12/29/24 13:12 12/31/24 18:19 Acetaminophen 325 Mg Tablet PO 650 mg Q4H PRN Administration Mild Pain (1-3) or Fever Calcium Carbonate 500 mg 12/31/24 09:00 01/01/25 16:20 Calcium Carbonate (Oscal) 500 Mg Tablet PO 01/30/25 08:59 500 mg BID LISSETTE Administration Enoxaparin Sodium 40 mg 01/01/25 09:00 01/01/25 08:27 Enoxaparin 40 Mg/0.4 Ml Syringe SUB-Q 40 mg DAILY LISSETTE Administration Folic Acid 1 mg 12/31/24 09:00 01/01/25 08:27 Folic Acid 1 Mg Tablet PO 1 mg DAILY LISSETTE Administration Ceftriaxone Sodium 1 gm in 50 mls @ 100 mls/hr 12/30/24 11:00 01/01/25 11:12 Rocephin 1 Gm/Ns 50 Ml IVPB Infused Q24H LISSETTE Infusion Metronidazole 500 mg in 100 mls @ 100 mls/hr 12/30/24 11:00 01/01/25 11:43 Flagyl 500 Mg/Iso Soln 100 Ml IVPB Infused Q8H LISSETTE Infusion Loperamide HCl 2 mg 01/01/25 09:00 01/01/25 16:20 Loperamide Hcl 2 Mg Capsule PO 2 mg TID LISSETTE Administration Pantoprazole Sodium 40 mg 12/31/24 09:00 01/01/25 08:27 Pantoprazole 40 Mg Tablet PO 40 mg Q12HR LISSETTE Administration Saccharomyces Boulardii 250 mg 12/31/24 17:00 01/01/25 16:20 Saccharomyces Boulardii 250 Mg Capsule PO 250 mg BID LISSETTE Administration Tramadol HCl 50 mg 12/29/24 21:29 12/30/24 20:17 Tramadol Hcl (*Crx) 50 Mg Tablet PO 50 mg Q6H PRN Administration Pain Rated 4-6 Radiology Results: ITS Impressions Abdomen/Pelvis CT 12/29/24 13:23 IMPRESSION: 1. Minimal pericardial effusion. 2. Minimal thickening of the sigmoid colon wall which may indicate colitis. 3. No evidence of appendicitis, diverticulitis or intestinal obstruction Renal Ultrasound 12/29/24 22:28 IMPRESSION: No hydronephrosis or renal calculi. The bladder is decompressed, limiting its evaluation Labs Labs: Laboratory Tests 01/01/25 04:34 01/01/25 04:34 Calcium 8.7 Phosphorus 2.2 L Magnesium 1.6 Total Bilirubin 0.2 AST 20 ALT 11 Alkaline Phosphatase 62 Total Protein 6.0 L Albumin 4.0 Microbiology 12/29/24 15:49 Stool Escherichia coli Shiga Toxins - Final 12/29/24 15:49 Stool Salmonella/Shigella Culture - Final 12/29/24 15:49 Stool Campylobacter Antigen Assay - Final
--- NOTE | 2025-01-01 13:54 | P.PNIM_ITS ---
Progress Note: A&P Assessment and Plan (1) Acute hypotension: Code(s): I95.9 - Hypotension, unspecified Status: Acute Assessment and Plan: ED discussed case with ICU attending recommending fluid bolus at this time, CT abdomen, and stool testing Patient accepted to ICU Sepsis bolus CT showing some colitis IV cefepime, Flagyl Blood cultures pending Stool cultures pending Lactic acid 1.1 (2) Acute renal failure (ARF): Code(s): N17.9 - Acute kidney failure, unspecified Status: Acute Assessment and Plan: Likely due to acute dehydration from diarrhea Aggressive fluid hydration Nephrology consult pending recommendations Repeat labs in a.m. Urine study L (3) Acute dehydration: Code(s): E86.0 - Dehydration Status: Acute Assessment and Plan: See above (4) Acute hyponatremia: Code(s): E87.1 - Hypo-osmolality and hyponatremia Status: Acute Assessment and Plan: Repeat sodium after fluid bolus stable Nephrology consulted (5) Anemia: Code(s): D64.9 - Anemia, unspecified Status: Acute Assessment and Plan: Repeat hemoglobin at 8:00 p.m. Slight drop in hemoglobin likely due to delusional Transfuse for hemoglobin less than 7 or symptomatic No need for transfusion at this time (6) Benign hypertension: Code(s): I10 - Essential (primary) hypertension Status: Acute Assessment and Plan: Hold antihypertensives now due to severe hypotension Plan 64 y/o female presented with SUDHA and hyponatremia with complaint of persistent diarrhea 2/2 Giardia infection, this may have dehydration resulting in SUDHA and hyponatremia, patient is being hydrated, her kidney function is improving as w ell as her sodium levels, patient/s frequency of diarrhea, had improved, however, today patient frequency diarrhea is increasing, her white counts are climbing but so far all the stool tests are negative, will monitor and follow. patient and family denied any foreign travel and not sure sure how she came in contact with Giardia. so far all stool culture are negative, will continue to monitor Subjective Date/time seen: 01/01/25 13:54 Interval history: Abnormal lab work H&P-Narrative: 64-year-old female found to have SUDHA and hyponatremia by her PCP sent to the hospital for further evaluation. she had giardia and was treated but still having diarrhea and not drinking enough fluids. Patient states that she has not and vomiting in she is taking in food okay. Per the nursing she has had a bowel movement about every hour. C diff is negative, other stool samples pending. Patient denies abdominal pain at this time, fever or chills. In the ED her lab work showed anemia at 10.8 which is around baseline, sodium of 128, carbon dioxide 12, anion gap 18, BUN of 37, creatinine of 4.45 with baseline being around 1.1. Due to hypotension not responding to aggressive fluid bolus patient is being sent to ICU for acute dehydration and SUDHA. 64 y/o female presented with SUDHA and hyponatremia with complaint of persistent diarrhea 2/2 Giardia infection, this may have dehydration resulting in SUDHA and hyponatremia, patient is being hydrated, her kidney function is improving as well as her sodium levels, patient/s frequency of diarrhea, had improved, however, today patient frequency diarrhea is increasing, her white counts are climbing but so far all the stool tests are negative, will monitor and follow. patient and family denied any foreign travel and not sure sure how she came in contact with Giardia. so far all stool culture are negative, will continue to monitor Review of Systems Review of Systems: 12 systems were reviewed and are negativ e except for as per HPI. All systems reviewed & are unremarkable except as noted in HPI and below (HPI) Exam Narrative: Patient is comfortable, NAD HEENT: eyes are clear and none icteric LUNGS:CTA HEART: RR S1S2 ABD: BS+, Soft and nontender Lower extremities: no edema SKIN: nonjaundiced Neuro: grossly intact. Objective Data Vital Signs Vital Signs: Vital Signs - 24 hr 12/31/24 15:22 12/31/24 15:59 12/31/24 16:00 Temperature 36.4 C L Pulse Rate 77 Respiratory Rate 16 Blood Pressure 140/98 H Pulse Oximetry 98 Oxygen Delivery Room Air Room Air 12/31/24 16:00 12/31/24 20:00 12/31/24 20:58 Temperature 37.0 C Pulse Rate 95 96 92 Respiratory Rate 16 Blood Pressure 136/67 Pulse Oximetry 96 Oxygen Delivery 01/01/25 00:00 01/01/25 04:00 01/01/25 04:28 Temperature 36.9 C Pulse Rate 72 74 88 Respiratory Rate 16 Blood Pressure 129/69 Pulse Oximetry 98 Oxygen Delivery 01/01/25 08:30 01/01/25 12:00 Temperature Pulse Rate 87 78 Respiratory Rate Blood Pressure Pulse Oximetry Oxygen Delivery Intake/Output Intake/Output: Intake & Output 12/29/24 12/30/24 12/31/24 01/01/25 23:59 23:59 23:59 23:59 Intake Total 3000 4430 2970 1510 Output Total 2450 1800 1000 Balance 3000 1980 1170 510 Meds/Results Medications: Active Medications Generic Name Dose Route Start Last Admin Trade Name Freq PRN Reason Stop Dose Admin Acetaminophen 650 mg 12/29/24 13:12 12/31/24 18:19 Acetaminophen 325 Mg Tablet PO 650 mg Q4H PRN Administration Mild Pain (1-3) or Fever Calcium Carbonate 500 mg 12/31/24 09:00 01/01/25 08:27 Calcium Carbonate (Oscal) 500 Mg Tablet PO 01/30/25 08:59 500 mg BID LISSETTE Administration Enoxaparin Sodium 40 mg 01/01/25 09:00 01/01/25 08:27 Enoxaparin 40 Mg/0.4 Ml Syringe SUB-Q 40 mg DAILY LISSETTE Administration Folic Acid 1 mg 12/31/24 09:00 01/01/25 08:27 Folic Acid 1 Mg Tablet PO 1 mg DAILY LISSETTE Administration Ceftriaxone Sodium 1 gm in 50 mls @ 100 mls/hr 12/30/24 11:00 01/01/25 11:12 Rocephin 1 Gm/Ns 50 Ml IVPB Infused Q24H LISSETTE Infusion Metronidazole 500 mg in 100 mls @ 100 mls/hr 12/30/24 11:00 01/01/25 11:43 Flagyl 500 Mg/Iso Soln 100 Ml IVPB Infused Q8H LISSETTE Infusion Loperamide HCl 2 mg 01/01/25 09:00 01/01/25 13:28 Loperamide Hcl 2 Mg Capsule PO 2 mg TID LISSETTE Administration Pantoprazole Sodium 40 mg 12/31/24 09:00 01/01/25 08:27 Pantoprazole 40 Mg Tablet PO 40 mg Q12HR LISSETTE Administration Saccharomyces Boulardii 250 mg 12/31/24 17:00 01/01/25 08:27 Saccharomyces Boulardii 250 Mg Capsule PO 250 mg BID LISSETTE Administration Tramadol HCl 50 mg 12/29/24 21:29 12/30/24 20:17 Tramadol Hcl (*Crx) 50 Mg Tablet PO 50 mg Q6H PRN Administration Pain Rated 4-6 Radiology Results: ITS Impressions Abdomen/Pelvis CT 12/29/24 13:23 IMPRESSION: 1. Minimal pericardial effusion. 2. Minimal thickening of the sigmoid colon wall which may indicate colitis. 3. No evidence of appendicitis, diverticulitis or intestinal obstruction Renal Ultrasound 12/29/24 22:28 IMPRESSION: No hydronephrosis or renal calculi. The bladder is decompressed, limiting its evaluation Labs Labs: Laboratory Results - last 24 hr 01/01/25 04:34 WBC 10.2 H RBC 2.58 L Hgb 8.0 L Hct 25.1 L MCV 97.3 MCH 31.0 MCHC 31.9 L RDW 14.7 H Plt Count 440 H MPV 8.7 Immature Gran % (Auto) Not Reportable Neut % (Auto) Not Reportable Lymph % (Auto) Not Reportable [place] % (Auto) Not Reportable Eos % (Auto) Not Reportable Baso % (Auto) Not Reportable Lymph # (Auto) Not Reportable [place] # (Auto) Not Reportable Eos # (Auto) Not Reportable Baso # (Auto) Not Reportable Abs Immat Gran (auto) Not Reportable Absolute Neuts (auto) Not Reportable Absolute Nucleated RBC Not Reportable Total Counted 100 Neutrophils % (Manual) 69 Band Neutrophils % 5 Lymphocytes % (Manual) 12 L Monocytes % (Manual) 11 H Eosinophils % (Manual) 2 Basophils % (Manual) 1 Nucleated RBC % Not Reportable Abs Neuts (Manual) 7.54 H Abs Lymphs (Manual) 1.22 Abs Monocytes (Manual) 1.12 H Absolute Eos (Manual) 0.20 Abs Basophils (Manual) 0.10 Platelet Estimate Slightly increased Anisocytosis 1+ Ovalocytes 1+ Schistocytes None seen Sodium 138 Potassium 3.9 Chloride 107 Carbon Dioxide 21 L Anion Gap 10 BUN 7 D Creatinine 1.25 H Estim Creat Clear Calc 34 Estimated GFR 43 L Glucose 93 Calcium 8.7 Phosphorus 2.2 L Magnesium 1.6 Total Bilirubin 0.2 AST 20 ALT 11 Alkaline Phosphatase 62 Total Protein 6.0 L Albumin 4.0 Quality VTE Prophylaxis VTE prophylaxis: pharmacologic ordered
--- NOTE | 2025-01-01 17:22 | P.PNGI_ITS ---
Progress Note: A&P Assessment and Plan (1) Diarrhea: Qualifiers: Diarrhea type: presumed infectious Qualified Code(s): R19.7 - Diarrhea, unspecified Code(s): R19.7 - Diarrhea, unspecified Status: Acute Assessment and Plan: empirically on abx, h/o giardia but repeat studies negative on imodium, will add questran renal function is improving (2) Hypotension: Code(s): I95.9 - Hypotension, unspecified Status: Acute Assessment and Plan: resolved (3) Acute on chronic renal failure: Code(s): N17.9 - Acute kidney failure, unspecified; N18.9 - Chronic kidney disease, unspecified Status: Acute (4) Anemia: Code(s): D64.9 - Anemia, unspecified Status: Acute (5) Adenocarcinoma of left lung, stage 4: Code(s): C34.92 - Malignant neoplasm of unspecified part of left bronchus or lung Status: Chronic Assessment and Plan: she has seen oncologist Subjective Date/time seen: 01/01/25 17:22 Interval history: still with similar diarrhea, no abdominal pain Review of Systems Review of Systems: All systems reviewed & are unremarkable except as noted in HPI and below Exam Const: General: comfortable and no acute distress HENMT: Face/Nose/Sinus: Normal nares present Eyes: General: appearance normal, both eyes and all related structures Neck: Neck: supple Resp: Auscultation: clear to auscultation bilaterally Cardio: Rate: regular rate Rhythm: regular rhythm GI: Inspection: non-distended GI Palp: Yes Soft to palpation and No Tenderness to palpation present (GI) Auscultation: normal bowel sounds Skin: General skin exam: normal color Neuro: Speech: normal speech Extrem: General: normal to inspection Psych: Mental Status: mental status grossly normal Objective Data Vital Signs Vital Signs: Vital Signs - 24 hr 12/31/24 20:00 12/31/24 20:58 01/01/25 00:00 Temperature 98.6 F Pulse Rate 96 92 72 Respiratory Rate 16 Blood Pressure 136/67 Pulse Oximetry 96 01/01/25 04:00 01/01/25 04:28 01/01/25 08:30 Temperature 98.4 F Pulse Rate 74 88 87 Respiratory Rate 16 Blood Pressure 129/69 Pulse Oximetry 98 01/01/25 12:00 01/01/25 14:00 Temperature 97.9 F Pulse Rate 78 92 Respiratory Rate 18 Blood Pressure 111/55 L Pulse Oximetry 97 Intake/Output Intake/Output: Intake & Output 12/29/24 12/30/24 12/31/24 01/01/25 23:59 23:59 23:59 23:59 Intake Total 3000 4430 2970 1960 Output Total 2450 1800 1725 Balance 3000 1980 1170 235 Meds/Results Medications: Active Medications Generic Name Dose Route Start Last Admin Trade Name Freq PRN Reason Stop Dose Admin Acetaminophen 650 mg 12/29/24 13:12 12/31/24 18:19 Acetaminophen 325 Mg Tablet PO 650 mg Q4H PRN Administration Mild Pain (1-3) or Fever Calcium Carbonate 500 mg 12/31/24 09:00 01/01/25 16:20 Calcium Carbonate (Oscal) 500 Mg Tablet PO 01/30/25 08:59 500 mg BID LISSETTE Administration Cholestyramine Resin 4 gm 01/02/25 10:00 Cholestyramine Light 4 Gm Powd.Pack PO QAM@1000 LISSETTE Enoxaparin Sodium 40 mg 01/01/25 09:00 01/01/25 08:27 Enoxaparin 40 Mg/0.4 Ml Syringe SUB-Q 40 mg DAILY LISSETTE Administration Folic Acid 1 mg 12/31/24 09:00 01/01/25 08:27 Folic Acid 1 Mg Tablet PO 1 mg DAILY LISSETTE Administration Ceftriaxone Sodium 1 gm in 50 mls @ 100 mls/hr 12/30/24 11:00 01/01/25 11:12 Rocephin 1 Gm/Ns 50 Ml IVPB Infused Q24H LISSETTE Infusion Metronidazole 500 mg in 100 mls @ 100 mls/hr 12/30/24 11:00 01/01/25 11:43 Flagyl 500 Mg/Iso Soln 100 Ml IVPB Infused Q8H LISSETTE Infusion Loperamide HCl 2 mg 01/01/25 09:00 01/01/25 16:20 Loperamide Hcl 2 Mg Capsule PO 2 mg TID LISSETTE Administration Pantoprazole Sodium 40 mg 12/31/24 09:00 01/01/25 08:27 Pantoprazole 40 Mg Tablet PO 40 mg Q12HR LISSETTE Administration Saccharomyces Boulardii 250 mg 12/31/24 17:00 01/01/25 16:20 Saccharomyces Boulardii 250 Mg Capsule PO 250 mg BID LISSETTE Administration Tramadol HCl 50 mg 12/29/24 21:29 12/30/24 20:17 Tramadol Hcl (*Crx) 50 Mg Tablet PO 50 mg Q6H PRN Administration Pain Rated 4-6 Radiology Results: ITS Impressions Abdomen/Pelvis CT 12/29/24 13:23 IMPRESSION: 1. Minimal pericardial effusion. 2. Minimal thickening of the sigmoid colon wall which may indicate colitis. 3. No evidence of appendicitis, diverticulitis or intestinal obstruction Renal Ultrasound 12/29/24 22:28 IMPRESSION: No hydronephrosis or renal calculi. The bladder is decompressed, limiting its evaluation Labs Labs: Laboratory Results - last 24 hr 01/01/25 04:34 WBC 10.2 H RBC 2.58 L Hgb 8.0 L Hct 25.1 L MCV 97.3 MCH 31.0 MCHC 31.9 L RDW 14.7 H Plt Count 440 H MPV 8.7 Immature Gran % (Auto) Not Reportable Neut % (Auto) Not Reportable Lymph % (Auto) Not Reportable [place] % (Auto) Not Reportable Eos % (Auto) Not Reportable Baso % (Auto) Not Reportable Lymph # (Auto) Not Reportable [place] # (Auto) Not Reportable Eos # (Auto) Not Reportable Baso # (Auto) Not Reportable Abs Immat Gran (auto) Not Reportable Absolute Neuts (auto) Not Reportable Absolute Nucleated RBC Not Reportable Total Counted 100 Neutrophils % (Manual) 69 Band Neutrophils % 5 Lymphocytes % (Manual) 12 L Monocytes % (Manual) 11 H Eosinophils % (Manual) 2 Basophils % (Manual) 1 Nucleated RBC % Not Reportable Abs Neuts (Manual) 7.54 H Abs Lymphs (Manual) 1.22 Abs Monocytes (Manual) 1.12 H Absolute Eos (Manual) 0.20 Abs Basophils (Manual) 0.10 Platelet Estimate Slightly increased Anisocytosis 1+ Ovalocytes 1+ Schistocytes None seen Sodium 138 Potassium 3.9 Chloride 107 Carbon Dioxide 21 L Anion Gap 10 BUN 7 D Creatinine 1.25 H Estim Creat Clear Calc 34 Estimated GFR 43 L Glucose 93 Calcium 8.7 Phosphorus 2.2 L Magnesium 1.6 Total Bilirubin 0.2 AST 20 ALT 11 Alkaline Phosphatase 62 Total Protein 6.0 L Albumin 4.0
[2025-01-02] VITALS (10 sets, daily range): BP systolic 120–152; BP diastolic 67–95; PULSE 66–97; RESP 16–18; TEMP 36.4–37.5; O2SAT 98–100
[2025-01-02] MEDS: metroNIDAZOLE 500 MG/ISO 100ML 500 MG/100 ML BAG 100 MG IVPB ×3 (02:29→18:28)
[2025-01-02 05:27] LABS: Basophils Absolute Auto 0.1 K/mm3 (0.0-0.1); Basophils Percent Auto 1.2 % (0.2-1.2); Eosinophils Absolute Auto 0.2 K/mm3 (0-0.3); Eosinophils Percent Auto 1.5 % (0-4.4); Hematocrit 23.5 % (37.0-47.0); Hemoglobin 7.6 g/dL (12.0-15.0); Immature Granulocyte Percent A 7.1 % (0-0.5); Lymphocytes Absolute Auto 1.52 K/mm3 (0.9-3.2); Lymphocytes Percent Auto 13.5 % (18.3-44.2); Mean Corpuscular HGB Conc 32.3 g/dl (32-36); Mean Corpuscular Volume 95.9 fl (80-100); Mean Platelet Volume 8.7 fl (7.4-10.4); Monocytes Absolute Auto 1.7 K/mm3 (0.1-0.6); Monocytes Percent Auto 15.3 % (2.6-8.5); Neutrophils Absolute Auto 6.9 K/mm3 (1.3-6.7); Neutrophils Percent Auto 61.4 % (45.5-73.1); Platelet Count Result 365 k/mm3 (150-375); Red Blood Count 2.45 M/mm3 (4.2-5.4); Red Cell Distribution Width 14.6 % (11.5-14.5); White Blood Count 11.3 K/mm3 (4.5-10.0)
[2025-01-02 05:39] LABS: Alanine Aminotransferase 12 U/L (6-35); Albumin Level 3.5 g/dL (3.5-5.1); Alkaline Phosphatase 60 U/L (38-126); Anion Gap 8 mmol/L (4-12); Aspartate Amino Transferase 28 U/L (14-36); Bilirubin,Total 0.1 mg/dL (0.2-1.3); Blood Urea Nitrogen 6 mg/dL (7-17); Calcium 8.3 mg/dL (8.4-10.2); Carbon Dioxide 23 mmol/L (22-30); Chloride 104 mmol/L (98-107); Estimated CRCL calculation 38 ml/min; Estimated Glomerular Filt Rate 49; Glucose 96 mg/dL (65-110); Magnesium 1.3 mg/dL (1.6-2.3); Potassium 3.6 mmol/L (3.4-5.0); Sodium 135 mmol/L (137-145)
[2025-01-02] MEDS: MAGNESIUM SULF 2 GM/WATER 50ML 2 GM/50 ML BAG IVPB (08:25)
[2025-01-02] MEDS: CALCIUM CARBONATE (OSCAL) 500 MG TABLET PO ×2 (08:37→16:40)
[2025-01-02] MEDS: ENOXAPARIN 40 MG/0.4 ML SYRINGE SUB-Q (08:37)
[2025-01-02] MEDS: POTASSIUM CHLORIDE 20 MEQ PACKET (FOR LIQUID) 40 MEQ PO (08:37)
[2025-01-02] MEDS: SACCHAROMYCES BOULARDII 250 MG CAPSULE PO ×2 (08:37→16:40)
[2025-01-02] MEDS: LOPERAMIDE HCL 2 MG CAPSULE PO ×3 (08:37→16:40)
[2025-01-02] MEDS: FOLIC ACID 1 MG TABLET PO (08:38)
[2025-01-02] MEDS: PANTOPRAZOLE 40 MG TABLET PO ×2 (08:38→20:54)
--- NOTE | 2025-01-02 10:00 | P.PNNP_ITS ---
Progress Note: A&P Assessment and Plan (1) Acute kidney injury: Code(s): N17.9 - Acute kidney failure, unspecified Status: Acute Assessment and Plan: * improvement noted (if not back to baseline) * as noted on admission * multifactorial etiology: * prerenal factors (diarrhea) * hemodynamic instability/hypotension * infection/early sepsis(?) * use of ARB prior to admission * other(?) * evaluation to date noted: * renal ultrasound without obstruction * urine electrolytes are prerenal * urine eosinophils negative * CPK normal * mild proteinuria * s/p IVF resuscitation * optimized hemodynamics as tolerated * hold losartan * follow trend of repeat labs and UOP (2) Stage 3a chronic kidney disease: Code(s): N18.31 - Chronic kidney disease, stage 3a Status: Chronic Assessment and Plan: * baseline creatinine runs ~ 0.9 - 1.2mg/dl * presumably due to hypertension and age-related change (3) Hypotension: Code(s): I95.9 - Hypotension, unspecified Status: Acute Assessment and Plan: * improving * felt to be secondary to hypovolemia/volume depletion/dehydration from diarrhea * clinically better with IVF resuscitation * monitor for the need for vasopressor therapy * lactic acid normal * follow trend of hemodynamics (4) Metabolic acidosis: Code(s): E87.20 - Acidosis, unspecified Status: Acute Assessment and Plan: * resolved * due to acute kidney injury/acute renal failure in conjunction from GI losses (diarrhea) * follow trend of CO2 (5) Hyponatremia: Code(s): E87.1 - Hypo-osmolality and hyponatremia Status: Chronic Assessment and Plan: * stable if not improved * has been present as far back as early 2023 * probably due to a combination of SUDHA, volume depletion, and underlying malignancy/cancer * follow trend (6) Diarrhea: Qualifiers: Diarrhea type: presumed infectious Qualified Code(s): R19.7 - Diarrhea, unspecified Code(s): R19.7 - Diarrhea, unspecified Status: Acute Assessment and Plan: * reportedly present x 2 weeks prior to presentation * 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 * also is on chemotherapy as well * CT scan of the abdomen pelvis showed minimal thickening of sigmoid colon suggestive of colitis * stool negative for C diff toxin * follow stool cultures - negative to date * on Imodium and Questran * empirically on antibiotics (7) UTI (urinary tract infection): Code(s): N39.0 - Urinary tract infection, site not specified Status: Acute Assessment and Plan: * admission urinalysis suggestive * no urine culture done * on antibiotics (8) Adenocarcinoma of left lung, stage 4: Code(s): C34.92 - Malignant neoplasm of unspecified part of left bronchus or lung Status: Chronic Assessment and Plan: * known diagnosis * currently on chemotherapy * follows with Hem/Onc Not much else to add from renal perspective -- will continue to follow from a distance. L Subjective Date/time seen: 01/02/25 10:00 Interval history: Follow-up for acute kidney injury/acute renal failure on chronic kidney disease. Renal function/creatinine continues to improve if not back to baseline by recent labs; diarrhea seems to be less with use of Imodium and Questran; no other acute issues/events overnight or earlier this morning; no apparent distress noted at the time of my visit. Exam 2 Narrative: General: elderly but WD/WN female in NAD Heart: normal S1 and S2; no rub Lungs: clear to auscultation Abdomen: soft, nontender, nondistended, positive bowel sounds Extremities: no cyanosis or clubbing; no edema Skin: warm and dry Objective Data Vital Signs Vital Signs: Vital Signs Temp Pulse Resp BP Pulse Ox O2 Del Method 01/02/25 08:38 16 99 Room Air 01/02/25 08:00 85 01/02/25 05:13 98.8 F 72 16 120/67 99 01/02/25 04:00 66 01/02/25 00:00 94 01/01/25 21:47 98.7 F 82 16 117/53 L 93 01/01/25 20:00 94 01/01/25 20:00 82 16 93 Room Air 01/01/25 16:00 100 Intake/Output Intake/Output: Intake & Output 12/30/24 12/31/24 01/01/25 01/02/25 23:59 23:59 23:59 23:59 Intake Total 4430 2970 2300 840 Output Total 2450 1800 1725 1300 Balance 1980 1170 575 -460 Meds/Results Medications: Active Medications Generic Name Dose Route Start Last Admin Trade Name Freq PRN Reason Stop Dose Admin Acetaminophen 650 mg 12/29/24 13:12 12/31/24 18:19 Acetaminophen 325 Mg Tablet PO 650 mg Q4H PRN Administration Mild Pain (1-3) or Fever Calcium Carbonate 500 mg 12/31/24 09:00 01/02/25 08:37 Calcium Carbonate (Oscal) 500 Mg Tablet PO 01/30/25 08:59 500 mg BID LISSETTE Administration Cholestyramine Resin 4 gm 01/02/25 10:00 01/02/25 10:02 Cholestyramine Light 4 Gm Powd.Pack PO 4 gm QAM@1000 LISSETTE Administration Enoxaparin Sodium 40 mg 01/01/25 09:00 01/02/25 08:37 Enoxaparin 40 Mg/0.4 Ml Syringe SUB-Q 40 mg DAILY LISSETTE Administration Folic Acid 1 mg 12/31/24 09:00 01/02/25 08:38 Folic Acid 1 Mg Tablet PO 1 mg DAILY LISSETTE Administration Ceftriaxone Sodium 1 gm in 50 mls @ 100 mls/hr 12/30/24 11:00 01/02/25 10:29 Rocephin 1 Gm/Ns 50 Ml IVPB Infused Q24H LISSETTE Infusion Metronidazole 500 mg in 100 mls @ 100 mls/hr 12/30/24 11:00 01/02/25 11:25 Flagyl 500 Mg/Iso Soln 100 Ml IVPB Infused Q8H LISSETTE Infusion Loperamide HCl 2 mg 01/01/25 09:00 01/02/25 13:15 Loperamide Hcl 2 Mg Capsule PO 2 mg TID LISSETTE Administration Pantoprazole Sodium 40 mg 12/31/24 09:00 01/02/25 08:38 Pantoprazole 40 Mg Tablet PO 40 mg Q12HR LISSETTE Administration Saccharomyces Boulardii 250 mg 12/31/24 17:00 01/02/25 08:37 Saccharomyces Boulardii 250 Mg Capsule PO 250 mg BID LISSETTE Administration Tramadol HCl 50 mg 12/29/24 21:29 12/30/24 20:17 Tramadol Hcl (*Crx) 50 Mg Tablet PO 50 mg Q6H PRN Administration Pain Rated 4-6 Radiology Results: ITS Impressions Abdomen/Pelvis CT 12/29/24 13:23 IMPRESSION: 1. Minimal pericardial effusion. 2. Minimal thickening of the sigmoid colon wall which may indicate colitis. 3. No evidence of appendicitis, diverticulitis or intestinal obstruction Renal Ultrasound 12/29/24 22:28 IMPRESSION: No hydronephrosis or renal calculi. The bladder is decompressed, limiting its evaluation Labs Labs: Laboratory Tests 01/02/25 05:10 01/02/25 05:10 Calcium 8.3 L Phosphorus 3.0 Magnesium 1.3 L Total Bilirubin 0.1 L AST 28 ALT 12 Alkaline Phosphatase 60 Total Protein 6.0 L Albumin 3.5
[2025-01-02] MEDS: CHOLESTYRAMINE LIGHT 4 GM POWD.PACK PO (10:02)
--- NOTE | 2025-01-02 11:39 | P.PNGI_ITS ---
Progress Note: A&P Assessment and Plan (1) Diarrhea: Qualifiers: Diarrhea type: presumed infectious Qualified Code(s): R19.7 - Diarrhea, unspecified Code(s): R19.7 - Diarrhea, unspecified Status: Acute Assessment and Plan: CT showed possible mild colitis empirically on abx, h/o giardia but repeat studies negative. WBC negative on imodium and added questran wonder if could be also related to cancer treatment (patient has received immunotherapy and other treatments) renal function is improving if diarrhea improves then she can go home, also will need follow-up with her oncologist (2) Hypotension: Code(s): I95.9 - Hypotension, unspecified Status: Acute Assessment and Plan: resolved (3) Acute on chronic renal failure: Code(s): N17.9 - Acute kidney failure, unspecified; N18.9 - Chronic kidney disease, unspecified Status: Acute Assessment and Plan: improving (4) Anemia: Code(s): D64.9 - Anemia, unspecified Status: Acute Assessment and Plan: by hem-onc (5) Adenocarcinoma of left lung, stage 4: Code(s): C34.92 - Malignant neoplasm of unspecified part of left bronchus or lung Status: Chronic Assessment and Plan: also mets to brain and has seen radiation oncologist Subjective Date/time seen: 01/02/25 11:39 Interval history: less diarrhea today, no other changes Review of Systems Review of Systems: All systems reviewed & are unremarkable except as noted in HPI and below Exam Const: General: comfortable and no acute distress HENMT: Face/Nose/Sinus: Normal nares present Eyes: General: appearance normal, both eyes and all related structures Neck: Neck: supple Resp: Auscultation: clear to auscultation bilaterally Cardio: Rate: regular rate Rhythm: regular rhythm GI: Inspection: non-distended GI Palp: Yes Soft to palpation and No Tenderness to palpation present (GI) Auscultation: normal bowel sounds Skin: General skin exam: normal color Neuro: Speech: normal speech Extrem: General: normal to inspection Psych: Mental Status: mental status grossly normal Objective Data Vital Signs Vital Signs: Vital Signs - 24 hr 01/01/25 12:00 01/01/25 14:00 01/01/25 16:00 Temperature 97.9 F Pulse Rate 78 92 100 Respiratory Rate 18 Blood Pressure 111/55 L Pulse Oximetry 97 Oxygen Delivery 01/01/25 20:00 01/01/25 20:00 01/01/25 21:47 Temperature 98.7 F Pulse Rate 82 94 82 Respiratory Rate 16 16 Blood Pressure 117/53 L Pulse Oximetry 93 93 Oxygen Delivery Room Air 01/02/25 00:00 01/02/25 04:00 01/02/25 05:13 Temperature 98.8 F Pulse Rate 94 66 72 Respiratory Rate 16 Blood Pressure 120/67 Pulse Oximetry 99 Oxygen Delivery Intake/Output Intake/Output: Intake & Output 12/30/24 12/31/24 01/01/25 01/02/25 23:59 23:59 23:59 23:59 Intake Total 4430 2970 2300 840 Output Total 2450 1800 1725 1300 Balance 1980 1173 858 -546 Meds/Results Medications: Active Medications Generic Name Dose Route Start Last Admin Trade Name Freq PRN Reason Stop Dose Admin Acetaminophen 650 mg 12/29/24 13:12 12/31/24 18:19 Acetaminophen 325 Mg Tablet PO 650 mg Q4H PRN Administration Mild Pain (1-3) or Fever Calcium Carbonate 500 mg 12/31/24 09:00 01/02/25 08:37 Calcium Carbonate (Oscal) 500 Mg Tablet PO 01/30/25 08:59 500 mg BID LISSETTE Administration Cholestyramine Resin 4 gm 01/02/25 10:00 01/02/25 10:02 Cholestyramine Light 4 Gm Powd.Pack PO 4 gm QAM@1000 LISSETTE Administration Enoxaparin Sodium 40 mg 01/01/25 09:00 01/02/25 08:37 Enoxaparin 40 Mg/0.4 Ml Syringe SUB-Q 40 mg DAILY LISSETTE Administration Folic Acid 1 mg 12/31/24 09:00 01/02/25 08:38 Folic Acid 1 Mg Tablet PO 1 mg DAILY LISSETTE Administration Ceftriaxone Sodium 1 gm in 50 mls @ 100 mls/hr 12/30/24 11:00 01/02/25 10:29 Rocephin 1 Gm/Ns 50 Ml IVPB Infused Q24H LISSETTE Infusion Metronidazole 500 mg in 100 mls @ 100 mls/hr 12/30/24 11:00 01/02/25 11:25 Flagyl 500 Mg/Iso Soln 100 Ml IVPB Infused Q8H LISSETTE Infusion Loperamide HCl 2 mg 01/01/25 09:00 01/02/25 08:37 Loperamide Hcl 2 Mg Capsule PO 2 mg TID LISSETTE Administration Pantoprazole Sodium 40 mg 12/31/24 09:00 01/02/25 08:38 Pantoprazole 40 Mg Tablet PO 40 mg Q12HR LISSETTE Administration Saccharomyces Boulardii 250 mg 12/31/24 17:00 01/02/25 08:37 Saccharomyces Boulardii 250 Mg Capsule PO 250 mg BID LISSETTE Administration Tramadol HCl 50 mg 12/29/24 21:29 12/30/24 20:17 Tramadol Hcl (*Crx) 50 Mg Tablet PO 50 mg Q6H PRN Administration Pain Rated 4-6 Radiology Results: ITS Impressions Abdomen/Pelvis CT 12/29/24 13:23 IMPRESSION: 1. Minimal pericardial effusion. 2. Minimal thickening of the sigmoid colon wall which may indicate colitis. 3. No evidence of appendicitis, diverticulitis or intestinal obstruction Renal Ultrasound 12/29/24 22:28 IMPRESSION: No hydronephrosis or renal calculi. The bladder is decompressed, limiting its evaluation Labs Labs: Laboratory Results - last 24 hr 01/02/25 05:10 WBC 11.3 H RBC 2.45 L Hgb 7.6 L Hct 23.5 L MCV 95.9 MCH 31.0 MCHC 32.3 RDW 14.6 H Plt Count 365 MPV 8.7 Immature Gran % (Auto) 7.1 H Neut % (Auto) 61.4 Lymph % (Auto) 13.5 L [place] % (Auto) 15.3 H Eos % (Auto) 1.5 Baso % (Auto) 1.2 Lymph # (Auto) 1.52 [place] # (Auto) 1.7 H Eos # (Auto) 0.2 Baso # (Auto) 0.1 Abs Immat Gran (auto) 0.80 H Absolute Neuts (auto) 6.9 H Absolute Nucleated RBC 0.000 Nucleated RBC % 0.0 Sodium 135 L Potassium 3.6 Chloride 104 Carbon Dioxide 23 Anion Gap 8 BUN 6 L Creatinine 1.12 H Estim Creat Clear Calc 38 Estimated GFR 49 L Glucose 96 Calcium 8.3 L Phosphorus 3.0 Magnesium 1.3 L Total Bilirubin 0.1 L AST 28 ALT 12 Alkaline Phosphatase 60 Total Protein 6.0 L Albumin 3.5
--- NOTE | 2025-01-02 15:21 | P.PNIM_ITS ---
Progress Note: A&P Assessment and Plan (1) Acute hypotension: Code(s): I95.9 - Hypotension, unspecified Status: Acute Assessment and Plan: ED discussed case with ICU attending recommending fluid bolus at this time, CT abdomen, and stool testing Patient accepted to ICU Sepsis bolus CT showing some colitis IV cefepime, Flagyl Blood cultures pending Stool cultures pending Lactic acid 1.1 (2) Acute renal failure (ARF): Code(s): N17.9 - Acute kidney failure, unspecified Status: Acute Assessment and Plan: Likely due to acute dehydration from diarrhea Aggressive fluid hydration Nephrology consult pending recommendations Repeat labs in a.m. Urine study L (3) Acute dehydration: Code(s): E86.0 - Dehydration Status: Acute Assessment and Plan: See above (4) Acute hyponatremia: Code(s): E87.1 - Hypo-osmolality and hyponatremia Status: Acute Assessment and Plan: Repeat sodium after fluid bolus stable Nephrology consulted (5) Anemia: Code(s): D64.9 - Anemia, unspecified Status: Acute Assessment and Plan: Repeat hemoglobin at 8:00 p.m. Slight drop in hemoglobin likely due to delusional Transfuse for hemoglobin less than 7 or symptomatic No need for transfusion at this time (6) Benign hypertension: Code(s): I10 - Essential (primary) hypertension Status: Acute Assessment and Plan: Hold antihypertensives now due to severe hypotension Plan 64 y/o female presented with SUDHA and hyponatremia with complaint of persistent diarrhea 2/2 Giardia infection, this may have dehydration resulting in SUDHA and hyponatremia, patient is being hydrated, her kidney function is improving as w ell as her sodium levels, patient/s frequency of diarrhea, had improved, however, again today patient stats frequency diarrhea is increasing, her white counts are climbing but so far all the stool tests are negative, will monitor and follow. patient and family denied any foreign travel and not sure sure how she came in contact with Giardia. so far all stool culture are negative, will continue to monitor Subjective Date/time seen: 01/02/25 15:21 Interval history: Abnormal lab work H&P-Narrative: 64-year-old female found to have SUDHA and hyponatremia by her PCP sent to the hospital for further evaluation. she had giardia and was treated but still having diarrhea and not drinking enough fluids. Patient states that she has not and vomiting in she is taking in food okay. Per the nursing she has had a bowel movement about every hour. C diff is negative, other stool samples pending. Patient denies abdominal pain at this time, fever or chills. In the ED her lab work showed anemia at 10.8 which is around baseline, sodium of 128, carbon dioxide 12, anion gap 18, BUN of 37, creatinine of 4.45 with baseline being around 1.1. Due to hypotension not responding to aggressive fluid bolus patient is being sent to ICU for acute dehydration and SUDHA. 64 y/o female presented with SUDHA and hyponatremia with complaint of persistent diarrhea 2/2 Giardia infection, this may have dehydration resulting in SUDHA and hyponatremia, patient is being hydrated, her kidney function is improving as well as her sodium levels, patient/s frequency of diarrhea, had improved, however, again today patient stats frequency diarrhea is increasing, her white counts are climbing but so far all the stool tests are negative, will monitor and follow. patient and family denied any foreign travel and not sure sure how she came in contact with Giardia. so far all stool culture are negative, will continue to monitor Review of Systems Review of Systems: All systems reviewed & are unremarkable except as noted in HPI and below (HPI) Exam Narrative: Patient is comfortable, NAD HEENT: eyes are clear and none icteric LUNGS:CTA HEART: RR S1S2 ABD: BS+, Soft and nontender Lower extremities: no edema SKIN: nonjaundiced Neuro: grossly intact. Objective Data Vital Signs Vital Signs: Vital Signs - 24 hr 01/01/25 16:00 01/01/25 20:00 01/01/25 20:00 Temperature Pulse Rate 100 82 94 Respiratory Rate 16 Blood Pressure Pulse Oximetry 93 Oxygen Delivery Room Air 01/01/25 21:47 01/02/25 00:00 01/02/25 04:00 Temperature 37.1 C Pulse Rate 82 94 66 Respiratory Rate 16 Blood Pressure 117/53 L Pulse Oximetry 93 Oxygen Delivery 01/02/25 05:13 01/02/25 08:00 01/02/25 08:38 Temperature 37.1 C Pulse Rate 72 85 Respiratory Rate 16 16 Blood Pressure 120/67 Pulse Oximetry 99 99 Oxygen Delivery Room Air 01/02/25 12:04 01/02/25 14:00 Temperature 36.4 C Pulse Rate 83 81 Respiratory Rate 16 Blood Pressure 144/87 H Pulse Oximetry 100 Oxygen Delivery Intake/Output Intake/Output: Intake & Output 12/30/24 12/31/24 01/01/25 01/02/25 23:59 23:59 23:59 23:59 Intake Total 4430 2970 2300 1080 Output Total 2450 1800 1725 1300 Balance 1980 1170 575 220 Meds/Results Medications: Active Medications Generic Name Dose Route Start Last Admin Trade Name Freq PRN Reason Stop Dose Admin Acetaminophen 650 mg 12/29/24 13:12 12/31/24 18:19 Acetaminophen 325 Mg Tablet PO 650 mg Q4H PRN Administration Mild Pain (1-3) or Fever Calcium Carbonate 500 mg 12/31/24 09:00 01/02/25 08:37 Calcium Carbonate (Oscal) 500 Mg Tablet PO 01/30/25 08:59 500 mg BID LISSETTE Administration Cholestyramine Resin 4 gm 01/02/25 10:00 01/02/25 10:02 Cholestyramine Light 4 Gm Powd.Pack PO 4 gm QAM@1000 LISSETTE Administration Enoxaparin Sodium 40 mg 01/01/25 09:00 01/02/25 08:37 Enoxaparin 40 Mg/0.4 Ml Syringe SUB-Q 40 mg DAILY LISSETTE Administration Folic Acid 1 mg 12/31/24 09:00 01/02/25 08:38 Folic Acid 1 Mg Tablet PO 1 mg DAILY LISSETTE Administration Ceftriaxone Sodium 1 gm in 50 mls @ 100 mls/hr 12/30/24 11:00 01/02/25 10:29 Rocephin 1 Gm/Ns 50 Ml IVPB Infused Q24H LISSETTE Infusion Metronidazole 500 mg in 100 mls @ 100 mls/hr 12/30/24 11:00 01/02/25 11:25 Flagyl 500 Mg/Iso Soln 100 Ml IVPB Infused Q8H LISSETTE Infusion Loperamide HCl 2 mg 01/01/25 09:00 01/02/25 13:15 Loperamide Hcl 2 Mg Capsule PO 2 mg TID LISSETTE Administration Pantoprazole Sodium 40 mg 12/31/24 09:00 01/02/25 08:38 Pantoprazole 40 Mg Tablet PO 40 mg Q12HR LISSETTE Administration Saccharomyces Boulardii 250 mg 12/31/24 17:00 01/02/25 08:37 Saccharomyces Boulardii 250 Mg Capsule PO 250 mg BID LISSETTE Administration Tramadol HCl 50 mg 12/29/24 21:29 12/30/24 20:17 Tramadol Hcl (*Crx) 50 Mg Tablet PO 50 mg Q6H PRN Administration Pain Rated 4-6 Radiology Results: ITS Impressions Abdomen/Pelvis CT 12/29/24 13:23 IMPRESSION: 1. Minimal pericardial effusion. 2. Minimal thickening of the sigmoid colon wall which may indicate colitis. 3. No evidence of appendicitis, diverticulitis or intestinal obstruction Renal Ultrasound 12/29/24 22:28 IMPRESSION: No hydronephrosis or renal calculi. The bladder is decompressed, limiting its evaluation Labs Labs: Laboratory Results - last 24 hr 01/02/25 05:10 WBC 11.3 H RBC 2.45 L Hgb 7.6 L Hct 23.5 L MCV 95.9 MCH 31.0 MCHC 32.3 RDW 14.6 H Plt Count 365 MPV 8.7 Immature Gran % (Auto) 7.1 H Neut % (Auto) 61.4 Lymph % (Auto) 13.5 L [place] % (Auto) 15.3 H Eos % (Auto) 1.5 Baso % (Auto) 1.2 Lymph # (Auto) 1.52 [place] # (Auto) 1.7 H Eos # (Auto) 0.2 Baso # (Auto) 0.1 Abs Immat Gran (auto) 0.80 H Absolute Neuts (auto) 6.9 H Absolute Nucleated RBC 0.000 Nucleated RBC % 0.0 Sodium 135 L Potassium 3.6 Chloride 104 Carbon Dioxide 23 Anion Gap 8 BUN 6 L Creatinine 1.12 H Estim Creat Clear Calc 38 Estimated GFR 49 L Glucose 96 Calcium 8.3 L Phosphorus 3.0 Magnesium 1.3 L Total Bilirubin 0.1 L AST 28 ALT 12 Alkaline Phosphatase 60 Total Protein 6.0 L Albumin 3.5 Quality VTE Prophylaxis VTE prophylaxis: pharmacologic ordered
[2025-01-03] VITALS (7 sets, daily range): BP systolic 131–135; BP diastolic 61–76; PULSE 69–88; RESP 16–18; TEMP 36.2–36.7; O2SAT 98–99
[2025-01-03] MEDS: metroNIDAZOLE 500 MG/ISO 100ML 500 MG/100 ML BAG 100 MG IVPB ×2 (02:41→11:21)
[2025-01-03 05:14] LABS: Basophils Absolute Auto 0.1 K/mm3 (0.0-0.1); Basophils Percent Auto 0.8 % (0.2-1.2); Eosinophils Absolute Auto 0.2 K/mm3 (0-0.3); Eosinophils Percent Auto 1.6 % (0-4.4); Hematocrit 23.4 % (37.0-47.0); Hemoglobin 7.5 g/dL (12.0-15.0); Immature Granulocyte Absolute 0.72 K/mm3 (0.00-0.031); Immature Granulocyte Percent A 6.1 % (0-0.5); Lymphocytes Absolute Auto 1.31 K/mm3 (0.9-3.2); Mean Corpuscular HGB Conc 32.1 g/dl (32-36); Mean Corpuscular Volume 96.7 fl (80-100); Mean Platelet Volume 8.6 fl (7.4-10.4); Monocytes Absolute Auto 1.9 K/mm3 (0.1-0.6); Monocytes Percent Auto 16.3 % (2.6-8.5); Neutrophils Absolute Auto 7.6 K/mm3 (1.3-6.7); Neutrophils Percent Auto 64.2 % (45.5-73.1); Platelet Count Result 333 k/mm3 (150-375); Red Blood Count 2.42 M/mm3 (4.2-5.4); Red Cell Distribution Width 14.6 % (11.5-14.5); White Blood Count 11.9 K/mm3 (4.5-10.0)
[2025-01-03 05:28] LABS: Alanine Aminotransferase 10 U/L (6-35); Albumin Level 3.3 g/dL (3.5-5.1); Alkaline Phosphatase 99 U/L (38-126); Anion Gap 9 mmol/L (4-12); Aspartate Amino Transferase 27 U/L (14-36); Bilirubin,Total < 0.1 mg/dL (0.2-1.3); Blood Urea Nitrogen 5 mg/dL (7-17); Calcium 7.8 mg/dL (8.4-10.2); Carbon Dioxide 22 mmol/L (22-30); Chloride 102 mmol/L (98-107); Estimated CRCL calculation 41 ml/min; Estimated Glomerular Filt Rate 52; Glucose 95 mg/dL (65-110); Magnesium 1.6 mg/dL (1.6-2.3); Phosphorus 2.8 mg/dL (2.5-4.5); Potassium 3.3 mmol/L (3.4-5.0); Sodium 133 mmol/L (137-145)
[2025-01-03 05:36] LABS: Hypochromasia 1+; Large Platelets Present; Platelet Estimate Adequate (Adequate)
[2025-01-03 05:37] LABS: Anisocytosis 1+; Burr Cells 1+; Ovalocytes 1+; Poikilocytosis 1+
[2025-01-03 05:38] LABS: Schistocytes None Seen
[2025-01-03] MEDS: FOLIC ACID 1 MG TABLET PO (08:35)
[2025-01-03] MEDS: SACCHAROMYCES BOULARDII 250 MG CAPSULE PO (08:35)
[2025-01-03] MEDS: LOPERAMIDE HCL 2 MG CAPSULE PO ×2 (08:35→12:22)
[2025-01-03] MEDS: ENOXAPARIN 40 MG/0.4 ML SYRINGE SUB-Q (08:35)
[2025-01-03] MEDS: PANTOPRAZOLE 40 MG TABLET PO (08:35)
[2025-01-03] MEDS: CALCIUM CARBONATE (OSCAL) 500 MG TABLET PO (08:35)
[2025-01-03] MEDS: ACETAMINOPHEN 325 MG TABLET 650 MG PO (08:38)
[2025-01-03] MEDS: MAGNESIUM SULF 1 GM/D5W 100 ML 1 GM/100 ML BAG IVPB (08:39)
[2025-01-03] MEDS: CHOLESTYRAMINE LIGHT 4 GM POWD.PACK PO (10:32)
--- NOTE | 2025-01-03 12:37 | P.PNIM_ITS ---
Progress Note: A&P Assessment and Plan (1) Acute hypotension: Code(s): I95.9 - Hypotension, unspecified Status: Acute Assessment and Plan: ED discussed case with ICU attending recommending fluid bolus at this time, CT abdomen, and stool testing Patient accepted to ICU Sepsis bolus CT showing some colitis IV cefepime, Flagyl Blood cultures pending Stool cultures pending Lactic acid 1.1 (2) Acute renal failure (ARF): Code(s): N17.9 - Acute kidney failure, unspecified Status: Acute Assessment and Plan: Likely due to acute dehydration from diarrhea Aggressive fluid hydration Nephrology consult pending recommendations Repeat labs in a.m. Urine study L (3) Acute dehydration: Code(s): E86.0 - Dehydration Status: Acute Assessment and Plan: See above (4) Acute hyponatremia: Code(s): E87.1 - Hypo-osmolality and hyponatremia Status: Acute Assessment and Plan: Repeat sodium after fluid bolus stable Nephrology consulted (5) Anemia: Code(s): D64.9 - Anemia, unspecified Status: Acute Assessment and Plan: Repeat hemoglobin at 8:00 p.m. Slight drop in hemoglobin likely due to delusional Transfuse for hemoglobin less than 7 or symptomatic No need for transfusion at this time (6) Benign hypertension: Code(s): I10 - Essential (primary) hypertension Status: Acute Assessment and Plan: Hold antihypertensives now due to severe hypotension Plan 64 y/o female presented with SUDHA and hyponatremia with complaint of persistent diarrhea 2/2 Giardia infection, this may have dehydration resulting in SUDHA and hyponatremia, patient is being hydrated, her kidney function is improving as we ll as her sodium levels, patient/s frequency of diarrhea, had improved, however, again today patient stats frequency diarrhea is increasing, her white counts are climbing but so far all the stool tests are negative, patient is seen by GI and suspect most likely 2/2 cancer medications she had been treated. will monitor and follow. patient and family denied any foreign travel and not sure how she came in contact with Giardia. so far all stool culture are negative, will continue to monitor Subjective Date/time seen: 01/03/25 12:37 Interval history: Abnormal lab work H&P-Narrative: 64-year-old female found to have SUDHA and hyponatremia by her PCP sent to the hospital for further evaluation. she had giardia and was treated but still having diarrhea and not drinking enough fluids. Patient states that she has not and vomiting in she is taking in food okay. Per the nursing she has had a bowel movement about every hour. C diff is negative, other stool samples pending. Patient denies abdominal pain at this time, fever or chills. In the ED her lab work showed anemia at 10.8 which is around baseline, sodium of 128, carbon dioxide 12, anion gap 18, BUN of 37, creatinine of 4.45 with baseline being around 1.1. Due to hypotension not responding to aggressive fluid bolus patient is being sent to ICU for acute dehydration and SUDHA. 64 y/o female presented with SUDHA and hyponatremia with complaint of persistent diarrhea 2/2 Giardia infection, this may have dehydration resulting in SUDHA and hyponatremia, patient is being hydrated, her kidney function is improving as well as her sodium levels, patient/s frequency of diarrhea, had improved, however, again today patient stats frequency diarrhea is increasing, her white counts are climbing but so far all the stool tests are negative, patient is seen by GI and suspect most likely 2/2 cancer medications she had been treated. will monitor and follow. patient and family denied any foreign travel and not sure how she came in contact with Giardia. so far all stool culture are negative, will continue to monitor Review of Systems Review of Systems: 12 systems were reviewed and are negativ e except for as per HPI. All systems reviewed & are unremarkable except as noted in HPI and below (HPI) Exam Narrative: Patient is comfortable, NAD HEENT: eyes are clear and none icteric LUNGS:CTA HEART: RR S1S2 ABD: BS+, Soft and nontender Lower extremities: no edema SKIN: nonjaundiced Neuro: grossly intact. Objective Data Vital Signs Vital Signs: Vital Signs - 24 hr 01/02/25 14:00 01/02/25 16:00 01/02/25 20:00 Temperature 36.4 C Pulse Rate 81 71 97 Respiratory Rate 16 18 Blood Pressure 144/87 H Pulse Oximetry 100 98 Oxygen Delivery Room Air 01/02/25 20:00 01/02/25 22:00 01/03/25 00:00 Temperature 37.5 C Pulse Rate 97 97 80 Respiratory Rate 18 Blood Pressure 152/95 H Pulse Oximetry 98 Oxygen Delivery 01/03/25 04:00 01/03/25 06:00 01/03/25 08:32 Temperature 36.7 C 36.2 C L Pulse Rate 71 81 88 Respiratory Rate 18 16 Blood Pressure 131/61 135/72 Pulse Oximetry 98 98 Oxygen Delivery 01/03/25 08:35 01/03/25 08:35 01/03/25 12:00 Temperature Pulse Rate 88 87 69 Respiratory Rate 16 Blood Pressure Pulse Oximetry 98 Oxygen Delivery Room Air Intake/Output Intake/Output: Intake & Output 12/31/24 01/01/25 01/02/25 01/03/25 23:59 23:59 23:59 23:59 Intake Total 2970 2300 1660 820 Output Total 1800 1725 2150 2600 Balance 1173 770 -136 -2911 Meds/Results Medications: Active Medications Generic Name Dose Route Start Last Admin Trade Name Freq PRN Reason Stop Dose Admin Acetaminophen 650 mg 12/29/24 13:12 01/03/25 08:38 Acetaminophen 325 Mg Tablet PO 650 mg Q4H PRN Administration Mild Pain (1-3) or Fever Calcium Carbonate 500 mg 12/31/24 09:00 01/03/25 08:35 Calcium Carbonate (Oscal) 500 Mg Tablet PO 01/30/25 08:59 500 mg BID LISSETTE Administration Cholestyramine Resin 4 gm 01/02/25 10:00 01/03/25 10:32 Cholestyramine Light 4 Gm Powd.Pack PO 4 gm QAM@1000 LISSETTE Administration Enoxaparin Sodium 40 mg 01/01/25 09:00 01/03/25 08:35 Enoxaparin 40 Mg/0.4 Ml Syringe SUB-Q 40 mg DAILY LISSETTE Administration Folic Acid 1 mg 12/31/24 09:00 01/03/25 08:35 Folic Acid 1 Mg Tablet PO 1 mg DAILY LISSETTE Administration Ceftriaxone Sodium 1 gm in 50 mls @ 100 mls/hr 12/30/24 11:00 01/03/25 10:33 Rocephin 1 Gm/Ns 50 Ml IVPB 100 mls/hr Q24H LISSETTE Administration Metronidazole 500 mg in 100 mls @ 100 mls/hr 12/30/24 11:00 01/03/25 11:21 Flagyl 500 Mg/Iso Soln 100 Ml IVPB 100 mls/hr Q8H LISSETTE Administration Loperamide HCl 2 mg 01/01/25 09:00 01/03/25 12:22 Loperamide Hcl 2 Mg Capsule PO 2 mg TID LISSETTE Administration Pantoprazole Sodium 40 mg 12/31/24 09:00 01/03/25 08:35 Pantoprazole 40 Mg Tablet PO 40 mg Q12HR LISSETTE Administration Saccharomyces Boulardii 250 mg 12/31/24 17:00 01/03/25 08:35 Saccharomyces Boulardii 250 Mg Capsule PO 250 mg BID LISSETTE Administration Tramadol HCl 50 mg 12/29/24 21:29 12/30/24 20:17 Tramadol Hcl (*Crx) 50 Mg Tablet PO 50 mg Q6H PRN Administration Pain Rated 4-6 Radiology Results: ITS Impressions Abdomen/Pelvis CT 12/29/24 13:23 IMPRESSION: 1. Minimal pericardial effusion. 2. Minimal thickening of the sigmoid colon wall which may indicate colitis. 3. No evidence of appendicitis, diverticulitis or intestinal obstruction Renal Ultrasound 12/29/24 22:28 IMPRESSION: No hydronephrosis or renal calculi. The bladder is decompressed, limiting its evaluation Labs Labs: Laboratory Results - last 24 hr 01/03/25 04:57 WBC 11.9 H RBC 2.42 L Hgb 7.5 L Hct 23.4 L MCV 96.7 MCH 31.0 MCHC 32.1 RDW 14.6 H Plt Count 333 MPV 8.6 Immature Gran % (Auto) 6.1 H Neut % (Auto) 64.2 Lymph % (Auto) 11.0 L [place] % (Auto) 16.3 H Eos % (Auto) 1.6 Baso % (Auto) 0.8 Lymph # (Auto) 1.31 [place] # (Auto) 1.9 H Eos # (Auto) 0.2 Baso # (Auto) 0.1 Abs Immat Gran (auto) 0.72 H Absolute Neuts (auto) 7.6 H Absolute Nucleated RBC 0.000 Band Neutrophils % Not Reportable Nucleated RBC % 0.0 Platelet Estimate Adequate Large Platelets Present Hypochromasia 1+ Poikilocytosis 1+ Anisocytosis 1+ Ovalocytes 1+ [place] Cells 1+ Schistocytes None seen Sodium 133 L Potassium 3.3 L Chloride 102 Carbon Dioxide 22 Anion Gap 9 BUN 5 L Creatinine 1.05 H Estim Creat Clear Calc 41 Estimated GFR 52 L Glucose 95 Calcium 7.8 L Phosphorus 2.8 Magnesium 1.6 Total Bilirubin < 0.1 L AST 27 ALT 10 Alkaline Phosphatase 99 Total Protein 6.0 L Albumin 3.3 L Quality VTE Prophylaxis VTE prophylaxis: pharmacologic ordered
--- NOTE | 2025-01-03 13:03 | WPDGIPROGNO ---
Progress Note: A&P Assessment and Plan (1) Diarrhea: Qualifiers: Diarrhea type: presumed infectious Qualified Code(s): R19.7 - Diarrhea, unspecified Code(s): R19.7 - Diarrhea, unspecified Status: Acute Assessment and Plan: CT showed possible mild colitis ok to discontinue antibiotics- h/o giardia but repeat studies negative. WBC negative on imodium and added questran I wonder if diarrhea is mostly from cancer treatment (patient has received immunotherapy with Keytruda for her metastatic lung cancer) renal function back to baseline I think she can home, probably will have persistent diarrhea and this can be managed as outpatient, also will need follow-up with her oncologist (2) Hypotension: Code(s): I95.9 - Hypotension, unspecified Status: Acute Assessment and Plan: resolved (3) Acute on chronic renal failure: Code(s): N17.9 - Acute kidney failure, unspecified; N18.9 - Chronic kidney disease, unspecified Status: Acute Assessment and Plan: resolved (4) Anemia: Code(s): D64.9 - Anemia, unspecified Status: Acute Assessment and Plan: by hem-onc, stable (5) Adenocarcinoma of left lung, stage 4: Code(s): C34.92 - Malignant neoplasm of unspecified part of left bronchus or lung Status: Chronic Assessment and Plan: also mets to brain and has seen radiation oncologist, on treatment Subjective Date/time seen: 01/03/25 13:03 Interval history: eating regular diet, still with diarrhea grand danyther is here- she told me that patient was supposed to get her Keytruda last week but postponed because patient general condition and admission to hospital Review of Systems Review of Systems: All systems reviewed & are unremarkable except as noted in HPI and below Exam Const: General: comfortable and no acute distress HENMT: Face/Nose/Sinus: Normal nares present Eyes: General: appearance normal, both eyes and all related structures Neck: Neck: supple Resp: Auscultation: clear to auscultation bilaterally Cardio: Rate: regular rate Rhythm: regular rhythm GI: Inspection: non-distended GI Palp: Yes Soft to palpation and No Tenderness to palpation present (GI) Auscultation: normal bowel sounds Skin: General skin exam: normal color Neuro: Speech: normal speech Extrem: General: normal to inspection Psych: Mental Status: mental status grossly normal Objective Data Vital Signs Vital Signs: Vital Signs - 24 hr 01/02/25 14:00 01/02/25 16:00 01/02/25 20:00 Temperature 97.6 F Pulse Rate 81 71 97 Respiratory Rate 16 18 Blood Pressure 144/87 H Pulse Oximetry 100 98 Oxygen Delivery Room Air 01/02/25 20:00 01/02/25 22:00 01/03/25 00:00 Temperature 99.5 F Pulse Rate 97 97 80 Respiratory Rate 18 Blood Pressure 152/95 H Pulse Oximetry 98 Oxygen Delivery 01/03/25 04:00 01/03/25 06:00 01/03/25 08:32 Temperature 98.1 F 97.2 F L Pulse Rate 71 81 88 Respiratory Rate 18 16 Blood Pressure 131/61 135/72 Pulse Oximetry 98 98 Oxygen Delivery 01/03/25 08:35 01/03/25 08:35 01/03/25 12:00 Temperature Pulse Rate 88 87 69 Respiratory Rate 16 Blood Pressure Pulse Oximetry 98 Oxygen Delivery Room Air Intake/Output Intake/Output: Intake & Output 12/31/24 01/01/25 01/02/25 01/03/25 23:59 23:59 23:59 23:59 Intake Total 2970 2300 1660 820 Output Total 1800 1725 2150 2600 Balance 1173 579 -145 -8600 Meds/Results Medications: Active Medications Generic Name Dose Route Start Last Admin Trade Name Freq PRN Reason Stop Dose Admin Acetaminophen 650 mg 12/29/24 13:12 01/03/25 08:38 Acetaminophen 325 Mg Tablet PO 650 mg Q4H PRN Administration Mild Pain (1-3) or Fever Calcium Carbonate 500 mg 12/31/24 09:00 01/03/25 08:35 Calcium Carbonate (Oscal) 500 Mg Tablet PO 01/30/25 08:59 500 mg BID LISSETTE Administration Cholestyramine Resin 4 gm 01/02/25 10:00 01/03/25 10:32 Cholestyramine Light 4 Gm Powd.Pack PO 4 gm QAM@1000 LISSETTE Administration Enoxaparin Sodium 40 mg 01/01/25 09:00 01/03/25 08:35 Enoxaparin 40 Mg/0.4 Ml Syringe SUB-Q 40 mg DAILY LISSETTE Administration Folic Acid 1 mg 12/31/24 09:00 01/03/25 08:35 Folic Acid 1 Mg Tablet PO 1 mg DAILY LISSETTE Administration Ceftriaxone Sodium 1 gm in 50 mls @ 100 mls/hr 12/30/24 11:00 01/03/25 10:33 Rocephin 1 Gm/Ns 50 Ml IVPB 100 mls/hr Q24H LISSETTE Administration Metronidazole 500 mg in 100 mls @ 100 mls/hr 12/30/24 11:00 01/03/25 11:21 Flagyl 500 Mg/Iso Soln 100 Ml IVPB 100 mls/hr Q8H LISSETTE Administration Loperamide HCl 2 mg 01/01/25 09:00 01/03/25 12:22 Loperamide Hcl 2 Mg Capsule PO 2 mg TID LISSETTE Administration Pantoprazole Sodium 40 mg 12/31/24 09:00 01/03/25 08:35 Pantoprazole 40 Mg Tablet PO 40 mg Q12HR LISSETTE Administration Saccharomyces Boulardii 250 mg 12/31/24 17:00 01/03/25 08:35 Saccharomyces Boulardii 250 Mg Capsule PO 250 mg BID LISSETTE Administration Tramadol HCl 50 mg 12/29/24 21:29 12/30/24 20:17 Tramadol Hcl (*Crx) 50 Mg Tablet PO 50 mg Q6H PRN Administration Pain Rated 4-6 Radiology Results: ITS Impressions Abdomen/Pelvis CT 12/29/24 13:23 IMPRESSION: 1. Minimal pericardial effusion. 2. Minimal thickening of the sigmoid colon wall which may indicate colitis. 3. No evidence of appendicitis, diverticulitis or intestinal obstruction Renal Ultrasound 12/29/24 22:28 IMPRESSION: No hydronephrosis or renal calculi. The bladder is decompressed, limiting its evaluation Labs Labs: Laboratory Results - last 24 hr 01/03/25 04:57 WBC 11.9 H RBC 2.42 L Hgb 7.5 L Hct 23.4 L MCV 96.7 MCH 31.0 MCHC 32.1 RDW 14.6 H Plt Count 333 MPV 8.6 Immature Gran % (Auto) 6.1 H Neut % (Auto) 64.2 Lymph % (Auto) 11.0 L [place] % (Auto) 16.3 H Eos % (Auto) 1.6 Baso % (Auto) 0.8 Lymph # (Auto) 1.31 [place] # (Auto) 1.9 H Eos # (Auto) 0.2 Baso # (Auto) 0.1 Abs Immat Gran (auto) 0.72 H Absolute Neuts (auto) 7.6 H Absolute Nucleated RBC 0.000 Band Neutrophils % Not Reportable Nucleated RBC % 0.0 Platelet Estimate Adequate Large Platelets Present Hypochromasia 1+ Poikilocytosis 1+ Anisocytosis 1+ Ovalocytes 1+ [place] Cells 1+ Schistocytes None seen Sodium 133 L Potassium 3.3 L Chloride 102 Carbon Dioxide 22 Anion Gap 9 BUN 5 L Creatinine 1.05 H Estim Creat Clear Calc 41 Estimated GFR 52 L Glucose 95 Calcium 7.8 L Phosphorus 2.8 Magnesium 1.6 Total Bilirubin < 0.1 L AST 27 ALT 10 Alkaline Phosphatase 99 Total Protein 6.0 L Albumin 3.3 L
--- NOTE | 2025-01-03 14:19 | P.DS_ITS ---
DS: Admitting Diagnosis Discharge Date 01/03/25 Admitting Diagnosis Abnormal lab work DS: Discharge Diagnosis Discharge Diagnosis (1) Acute hypotension: Code(s): I95.9 - Hypotension, unspecified Status: Acute Assessment and Plan: ED discussed case with ICU attending recommending fluid bolus at this time, CT abdomen, and stool testing Patient accepted to ICU Sepsis bolus CT showing some colitis IV cefepime, Flagyl Blood cultures pending Stool cultures pending Lactic acid 1.1 (2) Acute renal failure (ARF): Code(s): N17.9 - Acute kidney failure, unspecified Status: Acute Assessment and Plan: Likely due to acute dehydration from diarrhea Aggressive fluid hydration Nephrology consult pending recommendations Repeat labs in a.m. Urine study (3) Acute dehydration: Code(s): E86.0 - Dehydration Status: Acute Assessment and Plan: See above (4) Acute hyponatremia: Code(s): E87.1 - Hypo-osmolality and hyponatremia Status: Acute Assessment and Plan: Repeat sodium after fluid bolus stable Nephrology consulted (5) Anemia: Code(s): D64.9 - Anemia, unspecified Status: Acute Assessment and Plan: Repeat hemoglobin at 8:00 p.m. Slight drop in hemoglobin likely due to delusional Transfuse for hemoglobin less than 7 or symptomatic No need for transfusion at this time (6) Benign hypertension: Code(s): I10 - Essential (primary) hypertension Status: Acute Assessment and Plan: Hold antihypertensives now due to severe hypotension Plan 64 y/o female presented with SUDHA and hyponatremia with complaint of persistent diarrhea 2/2 Giardia infection, this may have dehydration resulting in SUDHA and hyponatremia, patient is being hydrated, her kidney function is improving as well as her sodium levels, patient/s frequency of diarrhea, had improved, however, again today patient stats frequency diarrhea is increasing, her white counts are climbing but so far all the stool tests are negative, patient is seen by GI and suspect most likely 2/2 cancer medications she had been treated. will monitor and follow. patient and family denied any foreign travel and not sure how she came in contact with Giardia. so far all stool culture are negative. today patient feels better, will discharge patient home today. DS: Summary Hospital Course Hospital Course: 64 y/o female presented with SUDHA and hyponatremia with complaint of persistent diarrhea 2/2 Giardia infection, this may have dehydration resulting in SUDHA and hyponatremia, patient is being hydrated, her kidney function is improving as well as her sodium levels, patient/s frequency of diarrhea, had improved, however, again today patient stats frequency diarrhea is increasing, her white counts are climbing but so far all the stool tests are negative, patient is seen by GI and suspect most likely 2/2 cancer medications she had been treated. will monitor and follow. patient and family denied any foreign travel and not sure how she came in contact with Giardia. so far all stool culture are negati ve. today patient feels better, will discharge patient home today. Time Spent with Patient Time attestation: Total time spent providing and/or coordinating discharge services: Exam Narrative: Patient is comfortable, NAD HEENT: eyes are clear and none icteric LUNGS:CTA HEART: RR S1S2 ABD: BS+, Soft and nontender Lower extremities: no edema SKIN: nonjaundiced Neuro: grossly intact. DS: Data Data Completed and Pending Labs on day of discharge: Labs from last 24 hours 01/03/25 04:57 WBC 11.9 H RBC 2.42 L Hgb 7.5 L Hct 23.4 L MCV 96.7 MCH 31.0 MCHC 32.1 RDW 14.6 H Plt Count 333 MPV 8.6 Immature Gran % (Auto) 6.1 H Neut % (Auto) 64.2 Lymph % (Auto) 11.0 L [place] % (Auto) 16.3 H Eos % (Auto) 1.6 Baso % (Auto) 0.8 Lymph # (Auto) 1.31 [place] # (Auto) 1.9 H Eos # (Auto) 0.2 Baso # (Auto) 0.1 Abs Immat Gran (auto) 0.72 H Absolute Neuts (auto) 7.6 H Absolute Nucleated RBC 0.000 Band Neutrophils % Not Reportable Nucleated RBC % 0.0 Platelet Estimate Adequate Large Platelets Present Hypochromasia 1+ Poikilocytosis 1+ Anisocytosis 1+ Ovalocytes 1+ [place] Cells 1+ Schistocytes None seen Sodium 133 L Potassium 3.3 L Chloride 102 Carbon Dioxide 22 Anion Gap 9 BUN 5 L Creatinine 1.05 H Estim Creat Clear Calc 41 Estimated GFR 52 L Glucose 95 Calcium 7.8 L Phosphorus 2.8 Magnesium 1.6 Total Bilirubin < 0.1 L AST 27 ALT 10 Alkaline Phosphatase 99 Total Protein 6.0 L Albumin 3.3 L Preliminary micro results at discharge 12/29/24 15:49 Blood Culture - Preliminary Blood 12/29/24 15:49 Blood Culture - Preliminary Blood Discharge Plan Discharge Attending physician on discharge: Brendon Melton Consulting providers: Camden Rizvi; Yousuf Faulkner; Coleman Seth; Cat Delgadillo; Nehal Estes; Porter Llanos; Mitali Lord Discharging Clinician: Rashard Ellis Patient Disposition: Home Activity: as tolerated Diet: heart healthy Discharge Instructions: patient to follow up with primary care provider as soon as possible, patient is instructed if any symptoms worsen to go to nearest ER. Patient Instructions: Antibiotic Form Patient Language: Yemeni Stand Alone Forms: General Discharge Information Follow-up/Referrals: Amy Saldivar, [Primary Care Provider] - Discharge Medications: New loperamide 2 mg Capsule 2 mg PO TID Qty: 20 0RF Saccharomyces boulardii [Florastor] 250 mg Capsule 250 mg PO BID Qty: 60 0RF Prevalite 4 gram Powder In Packet 4 g PO QAM@1000 Qty: 30 0RF cefdinir 300 mg capsule 300 mg PO Q12H Qty: 10 0RF metronidazole 375 mg capsule 375 mg PO .q8 5 Days Qty: 14 0RF Continued ondansetron 8 mg Tablet,Disintegrating 8 mg PO Q8H dexamethasone 4 mg Tablet 4 mg PO BID folic acid 1 mg Tablet 1 mg PO DAILY calcium 500 mg Tablet 500 mg PO BID Patient Comments: . B12 100 mcg 100 mcg PO DAILY Patient Comments: ...... ferrous sulfate [iron] 325 mg (65 mg iron) tablet 325 mg PO DAILY Lidocaine-Prilocaine 1 dose topical .D8lpenz potassium chloride 20 mEq/15 mL liquid 20 meq PO BID pantoprazole 40 mg tablet,delayed release (DR/EC) 40 mg PO BID tramadol 50 mg tablet 50 mg PO DAILY losartan 100 mg tablet 100 mg PO DAILY Qty: 90 1RF Date of admission: 12/29/24 15:00 Primary Care Provider: Amy Saldivar Admitting Provider: Brendon Melton Attending physician on admission: Rashard Ellis Condition: Improved
== END 2025-01-03 14:46 | disposition home or self-care (01) | DRG 641 ==
LOC: ANHED 11:58 → ANHICU 15:49 → ANH2MED 01-01 14:09 → ANHICU 01-04 12:14
PROVIDERS: Internal Medicine; Internal Medicine Nephrology; Nurse Practitioner Gerontology; Admitting Provider Internal Medicine; Emergency Provider Emergency Medicine; PCP Family Medicine; Visit Provider Family Medicine
DX: E86.0 Dehydration (principal); N17.9 Acute kidney failure, unspecified; A07.1 Giardiasis [lambliasis]; C34.92 Malignant neoplasm of unspecified part of left bronchus or lung; N39.0 Urinary tract infection, site not specified; C79.51 Secondary malignant neoplasm of bone; C79.31 Secondary malignant neoplasm of brain; D63.0 Anemia in neoplastic disease; E87.20 Acidosis, unspecified; E87.1 Hypo-osmolality and hyponatremia; I95.9 Hypotension, unspecified; I12.9 Hypertensive chronic kidney disease with stage 1 through stage 4 chronic kidney disease, or unspecified chronic kidney disease; K52.9 Noninfective gastroenteritis and colitis, unspecified; N18.31 Chronic kidney disease, stage 3a; Z87.891 Personal history of nicotine dependence; Z92.21 Personal history of antineoplastic chemotherapy; Z66 Do not resuscitate
CPT/HCPCS: 36415; 74176; 76775; 80047; 80048; 80053; 81001; 82550; 82570; 83605; 83735; 84100; 84145; 84156; 84300; 84540; 85014; 85018; 85025; 85999; 87040; 87045; 87269; 87427; 87449; 87493; 87641; 89055; 96360; 96361; 97161; 97165; 99285; A9270; J0613; J0692; J0696; J1650; J1836; J3475; J7040; J7120; P9045; P9047

== ENCOUNTER 2025-02-16 10:22 | Inpatient (IN) | payer MEDICARE, SELFPAY ==
[2025-02-16] VITALS (30 sets, daily range): BP systolic 70–114; BP diastolic 38–80; PULSE 80–107; RESP 13–32; TEMP 36.2–36.6; O2SAT 91–100; BMI 23.9
--- NOTE | ~2025-02-16 | CT_ITS ---
CT chest abdomen pelvis wo con Ordering provider: Ellen Rice History: . new onset abdominal pain . Comparison: None. Technique: CT chest without IV contrast. CT abdomen and pelvis without oral and IV contrast. Radiatio n reduction technique utilized.The dose-length product was 617.16 mGy-cm. FINDINGS: The study is limited due to lack of IV contrast. CHEST: --VISUALIZED THORACIC INLET: Normal as visualized. --MEDIASTINUM: Aorta/coronary arteries: Mild atheromatous disease. Heart/other: The heart is not enlarged. Trace of pericardial effusion. Lymph nodes: No mediastinal or hilar adenopathy. Endotracheal tube and nasogastric tube are noted. Right Port-A-Cath line with the tip in the superior vena cava. --LUNGS: Bilateral moderate pleural effusion with adjacent atelectasis versus pneumonia. No pulmonary nodules or masses. No infiltrates or effusions. No pneumothorax. --MUSCULOSKELETAL: Soft tissues: The superficial soft tissues are normal. Bones: Age appropriate degenerative changes of the spine. Bilateral healing rib fractures are noted. Sclerotic changes seen in this superior endplate of T1. MRI evaluation to exclude acute fracture is a dvised. Chronic loss of volume of T3 is noted. ABDOMEN/PELVIS: --MUSCULOSKELETAL: Bones: Age appropriate degenerative changes of the spine. Bilateral sacroiliitis. Bilateral hip osteo arthritic changes. Superficial soft tissues: The superficial soft tissues are normal. --UPPER ABDOMINAL ORGANS: Liver: Calcified lesion in the segment #8 otherwise, normal. Gallbladder: Not demonstrated most likely status post cholecystectomy. Spleen: Normal. Stomach/duodenum: Normal. Area of calcification seen near to the head of the pancreas most likely in the duodenum or vascular. Pancreas: Normal. Adrenals: Normal. Kidneys: Normal. --PELVIC ORGANS: The bladder is underfilled with Min's catheter. Thickened wall is seen. No bladder stones. --BOWEL AND MESENTERY: Colon: No evidence of diverticulitis. Appendix is not demonstrated. Small Bowel: Normal. No obstruction. Peritoneum/mesentery: No free air or free fluid. No mesenteric lymphadenopathy. --RETROPERITONEUM: Mild atheromatous disease of the abdominal aorta. No retroperitoneal lymphadenop athy. IMPRESSION: CHEST: 1. Bilateral moderate pleural effusion with adjacent atelectasis versus pneumonia. 2. Trace of pericardial effusion. 3. Sclerotic changes in the superior endplate of T1. MRI evaluation to exclude acute fracture. ABDOMEN/PELVIS: 1. No evidence of appendicitis, diverticulitis or intestinal obstruction. No kidney stones. Reviewed, dictated and finalized at location A. IMPRESSION: CHEST: 1. Bilateral moderate pleural effusion with adjacent atelectasis versus pneumo fede. 2. Trace of pericardial effusion. 3. Sclerotic changes in the superior endplate of T1. MRI evaluation to exclude acute fracture. ABDOMEN/PELVIS: 1. No evidence of appendicitis, diverticulitis or intestinal obstruction. No k idney stones.
--- NOTE | ~2025-02-16 | US_ITS ---
EXAMINATION: US renal BI DATE: 02/17/2025 08:49 INDICATION: Acute renal insufficiency TECHNIQUE: Multiple ultrasound grayscale images of the kidneys were obtained. COMPARISON: None. FINDINGS: The right kidney measures 11.3 x 5.1 x 4.5 cm. The left kidney measures 10.1 x 4.4 x 4.1 cm. The kidn eys demonstrate normal echogenicity. There is no hydronephrosis in either kidney. No stones identifi ed. Min catheter within the decompressed bladder which limits evaluation. IMPRESSION: 1. Normal kidneys without hydronephrosis. Reviewed, dictated and finalized at location A.
--- NOTE | ~2025-02-16 | XR_ITS ---
Portable chest x-ray Comparison: 02/20/2025 Clinical History: Pneumonia Findings: Endotracheal tube, NG tube, and right-sided Mediport in place. There is hazy bibasilar air space disease most compatible mild to moderate pulmonary edema. Cardiomediastinal silhouette is stab le. Bones and soft tissues are unremarkable. Impression: Hazy bilateral airspace disease, suggestive of mild to moderate pulmonary edema. Correlate clinically for pneumonia. Support tubes, as above. Reviewed, dictated and finalized at location . Impression: Hazy bilateral airspace disease, suggestive of mild to moderate pulmonary edema . Correlate clinically for pneumonia. Support tubes, as above.
--- NOTE | ~2025-02-16 | XR_ITS ---
EXAM/PROCEDURE: XR chest PICC line - 02/19/2025 10:40 CDT HISTORY: 64 years old Female with picc line placement TECHNIQUE: Two view(s) of the chest. COMPARISON: None available. FINDINGS: LUNGS/ PLEURA: Bilateral airspace disease. Bilateral small pleural effusions. HEART/ MEDIASTINUM: Heart appears normal in size. BONES: No acute osseous abnormality. OTHER: Visualized upper abdomen is unremarkable. Tip of enteric tube projects beyond field of view. T ip of endotracheal tube is 3 cm above loiverio. Tip of Mediport catheter and PICC line is in the distal SVC. IMPRESSION: Tip of the PICC line is in the distal SVC. Reviewed, dictated and finalized at location A.
--- NOTE | ~2025-02-16 | XR_ITS ---
Portable chest x-ray Comparison: 02/18/2025 Clinical History: Tube is Findings: Endotracheal tube, NG tube, and right-sided Mediport in place. There is bibasilar airspace consolidation. Questionable minimal right pleural effusion. Cardiomediastinal silhouette is stable. Bones and soft tissues are unremarkable. Impression: Probable bibasilar pulmonary edema/atelectasis, versus possibly bibasilar pneumonia. Correlate clinic ally. Suspected minimal right pleural effusion. Support tubes, as above. Reviewed, dictated and finalized at location . Impression: Probable bibasilar pulmonary edema/atelectasis, versus possibly bibasilar pneum onia. Correlate clinically. Suspected minimal right pleural effusion. Support tubes, as above.
--- NOTE | ~2025-02-16 | XR_ITS ---
EXAMINATION: XR chest 1V portable DATE: 02/20/2025 05:45 INDICATION: Pneumonia. Respiratory failure. TECHNIQUE: frontal view of the chest was obtained. COMPARISON: Chest radiograph dated 02/19/2025 FINDINGS: Endotracheal tube tip 2.3 cm above the oliverio. Nasogastric tube extends below the left hemidiaphragm with distal tip collimated off the study. Right internal jugular central venous port catheter as wel l as a right upper extremity peripherally inserted central venous catheter (PICC), both with distal t ips in the mid superior vena cava. Increasing retrocardiac consolidation at the medial left lower lobe. Slight improvement in opacities at the right lower lung zone. No pleural effusion or pneumothorax. Heart size is normal. IMPRESSION: 1. Opacities in bilateral lower lung zones which could represent atelectasis and/or pneumonia with im provement on the right and worsening on the left. 2. Lines and tubes in expected position. Reviewed, dictated and finalized at location A. IMPRESSION: 1. Opacities in bilateral lower lung zones which could represent atelectasis an d/or pneumonia with improvement on the right and worsening on the left. 2. Lines and tubes in expected position.
--- NOTE | ~2025-02-16 | XR_ITS ---
Exam: Abdomen 1V HISTORY: OG tube placement COMPARISON: None. TECHNIQUE: Supine images of the lower chest and upper abdomen FINDINGS: Orogastric tube extends into the left upper quadrant, presumably within the stomach. IMPRESSION: Orogastric tube in good position and ready for immediate use. Reviewed, dictated and finalized at location A.
--- NOTE | ~2025-02-16 | XR_ITS ---
CHEST RADIOGRAPH CLINICAL HISTORY: After intubation to confirm ET placement . COMPARISON: 02/18/2025 at 5:41 PM TECHNIQUE: Single portable view of the chest. FINDINGS Right internal jugular central venous power port catheter identified with its tip projecting over the superior vena cava. Endotracheal tube is identified with its tip projecting over the proximal right mainstem bronchus for which withdrawal of approximately 4 cm is suggested for optimal radiographic placement. Orogastric tube identified with its tip extending below the left hemidiaphragm, presumably within the stomach. The remainder of the cardiomediastinal silhouette is otherwise unremarkable. Increased interstitial markings are redemonstrated bilaterally, findings suggesting moderate pulmonar y vascular congestion. Remainder of the lungs are clear. IMPRESSION: Endotracheal tube projecting over the proximal right mainstem bronchus for which withdrawal of approx imately 4 cm is recommended for optimal radiographic placement (discussed with VIVEK Merrill at 7:00 PM on 02/18/2025). Orogastric tube is in good position and ready for immediate use. Moderate pulmonary vascular congestion remains. Reviewed, dictated and finalized at location A. IMPRESSION: Endotracheal tube projecting over the proximal right mainstem bronchus for whic h withdrawal of approximately 4 cm is recommended for optimal radiographic plac ement (discussed with VIVEK Merrill at 7:00 PM on 02/18/2025). Orogastric tube is in good position and ready for immediate use. Moderate pulmonary vascular congestion remains.
--- NOTE | ~2025-02-16 | XR_ITS ---
CHEST RADIOGRAPH CLINICAL HISTORY: chest pain; abdominal pain . COMPARISON: 02/16/2025 TECHNIQUE: Single portable view of the chest. FINDINGS Right internal jugular central venous port catheter identified with its tip projecting over the super ior vena cava. Interval development of increased interstitial markings bilaterally, findings suggesting moderate pul monary vascular congestion. No pleural effusions are identified. IMPRESSION: Interval development of moderate pulmonary vascular congestion, as detailed above. Reviewed, dictated and finalized at location A. IMPRESSION: Interval development of moderate pulmonary vascular congestion, as detailed abo ve.
--- NOTE | ~2025-02-16 | XR_ITS ---
EXAM/PROCEDURE: XR chest 2V - 02/16/2025 11:10 CDT HISTORY: 64 years old Female with weakness TECHNIQUE: Two view(s) of the chest. COMPARISON: None available. FINDINGS: LUNGS/ PLEURA: No focal consolidation. No appreciable pneumothorax or large pleural effusion. HEART/ MEDIASTINUM: Heart appears normal in size. BONES: No acute osseous abnormality. OTHER: Visualized upper abdomen is unremarkable. Tip of the Mediport catheter is in the mid SVC. IMPRESSION: No acute process. Reviewed, dictated and finalized at location A. IMPRESSION: No acute process.
--- NOTE | ~2025-02-16 | US_ITS ---
EXAMINATION: US venous doppler E DATE: 02/20/2025 09:47 INDICATION: Upper limb swelling TECHNIQUE: Grayscale images without and with compression and Doppler images of the bilateral upper ex tremity veins were obtained. COMPARISON: None. FINDINGS: The right internal jugular vein, subclavian vein, axillary vein, brachial vein, basilic vein, cephali c vein, radial vein, and ulnar vein are patent. The left internal jugular vein, subclavian vein, axillary vein, brachial vein, basilic vein, cephalic vein, radial vein, and ulnar vein are patent. IMPRESSION: 1. Patent bilateral upper extremity veins. No evidence of venous thrombosis. Reviewed, dictated and finalized at location A.
--- NOTE | ~2025-02-16 | XR_ITS ---
Portable chest x-ray Comparison: 02/21/2025 Clinical History: Pneumonia Findings: Endotracheal tube, NG tube, right-sided Mediport, and right-sided PICC line are in place. Probable small left pleural effusion with bibasilar hazy airspace disease. Cardiomediastinal silhoue tte is stable. Bones and soft tissues are unremarkable. Impression: Bibasilar airspace disease, left worse than right. Correlate for pulmonary edema/atelectasis versus p neumonia. Probable small left pleural effusion. Support tubes, as above. Reviewed, dictated and finalized at location . Impression: Bibasilar airspace disease, left worse than right. Correlate for pulmonary [place] a/atelectasis versus pneumonia. Probable small left pleural effusion. Support tubes, as above.
--- NOTE | ~2025-02-16 | CT_ITS ---
CT brain wo con Ordering provider: Ellen Rice MD History: 64 years Female with . AMS new . Comparison: None. Technique: CT of the head without contrast. Radiation reduction technique utilized.The dose-length product was 605.33 mGy-cm. FINDINGS: BRAIN PARENCHYMA AND CSF SPACES: Mild leukoaraiosis and diffuse cortical atrophy. Mild atheromatous d isease. No midline shift, mass effect or hemorrhage. The brain parenchyma and CSF spaces are otherwise norm al. VISUALIZED PARANASAL SINUSES: Well aerated. MASTOIDS: Well aerated. BONES: The bones appear intact. SOFT TISSUES: Visualized nasopharynx is normal. Superficial soft tissues are normal. IMPRESSION: No acute intracranial findings. Reviewed, dictated and finalized at location A.
--- NOTE | ~2025-02-16 | XR_ITS ---
Portable chest x-ray Comparison: 02/22/2025 Clinical History: Respiratory failure Findings: Right-sided Mediport and right-sided PICC line are in place. There is left basilar airspac e disease. Right lung essentially clear. Cardiomediastinal silhouette is stable. Bones and soft tiss ues are unremarkable. Impression: Left basilar atelectasis versus pneumonia. Correlate clinically. Support tubes, as above. Reviewed, dictated and finalized at location . Impression: Left basilar atelectasis versus pneumonia. Correlate clinically. Support tubes, as above.
--- NOTE | 2025-02-16 11:03 | ECG_ITS ---
Test Date: 2025-02-16 11:06:15 Measurements Intervals [place] Rate: 102 P: 50 NM: 112 QRS: 39 QRSD: 93 T: 69 QT: 372 QTc: 486 Interpretive Statements SINUS TACHYCARDIA WITH SHORT NM INTERVAL BORDERLINE ST ABNORMALITY- DIFFUSE LEADS BASELINE ARTIFACT- I, II, III, AVR, AVL,A VF, V1-V6 BORDERLINE ECG No previous ECG available for comparison Electronically Signed On 02-16-2025 13:05:16 CDT by Erwin Daugherty D.O.
[2025-02-16 11:16] LABS: Hematocrit 38.5 % (37.0-47.0); Hemoglobin 12.8 g/dL (12.0-15.0); Immature Granulocyte Percent A 3.3 % (0-0.5); Lymphocytes Absolute Auto 1.07 K/mm3 (0.9-3.2); Mean Corpuscular HGB Conc 33.2 g/dl (32-36); Mean Corpuscular Hemoglobin 30.2 pg (26-34); Mean Corpuscular Volume 90.8 fl (80-100); Nucleated Red Blood Cells Absolute Auto 0.000 K/mm3 (0.0-0.012); Nucleated Red Blood Cells Perc 0.0 % (0.0-0.2); Platelet Count Result 428 k/mm3 (150-375); Red Blood Count 4.24 M/mm3 (4.2-5.4); White Blood Count 6.4 K/mm3 (4.5-10.0)
[2025-02-16 11:30] LABS: INR 1.1; Prothrombin Time 14.1 Seconds (11.1-14.7)
[2025-02-16] MEDS: SODIUM CHLORIDE 0.9% IV 700 ML 999 ML IV CONT (11:30)
[2025-02-16] MEDS: SODIUM CHLORIDE 0.9% IV 1,000 ML 999 ML IV CONT ×2 (11:30→13:40)
[2025-02-16 11:31] LABS: Partial Thromboplastin Time 28.3 Seconds (22.3-36.8)
[2025-02-16 11:37] LABS: Alanine Aminotransferase 16 U/L (6-35); Albumin Level 4.4 g/dL (3.5-5.1); Alkaline Phosphatase 164 U/L (38-126); Anion Gap 25 mmol/L (4-12); Aspartate Amino Transferase 27 U/L (14-36); Bilirubin,Total 0.4 mg/dL (0.2-1.3); Blood Urea Nitrogen 61 mg/dL (7-17); Calcium 7.8 mg/dL (8.4-10.2); Carbon Dioxide 14 mmol/L (22-30); Chloride 90 mmol/L (98-107); Glucose 130 mg/dL (65-110); Potassium 3.3 mmol/L (3.4-5.0); Sodium 129 mmol/L (137-145); Total Protein 8.1 g/dL (6.3-8.2)
[2025-02-16 11:44] LABS: Estimated CRCL calculation 5 ml/min; Estimated Glomerular Filt Rate 5
--- NOTE | 2025-02-16 11:50 | PC.NURSE ---
bladder scan was done at this time. no urine found in bladder. urine not obtained at this time
--- NOTE | 2025-02-16 13:37 | PC.NURSE ---
bladder scanned pt again and only found 16mL. EDP aware and ordered a barrera catheter
--- NOTE | 2025-02-16 13:57 | ED.GENADULT ---
HPI - General Adult General Chief complaint: Recheck/Abnormal Lab/Rx Stated complaint: sent by Karla for kidney failure Time Seen by Provider: 02/16/25 11:03 History of Present Illness HPI narrative: Patient is a 64-year-old female who presents to the ER with reports of low blood pressure and renal failure from her oncologist's office. Patient has known metastatic lung cancer to the bone and brain. She has no complaints this time other than feeling weak. She has not had chemotherapy for couple weeks and she is unsure why. She is unsure if the cancer is not responding or if there is lab abnormality. She is not fully sure why she was sent here from the office. Related Data Home Medications ?Medication ?Instructions ?Recorded ?Confirmed ?Last Taken ?Type dexamethasone 4 mg tablet 4 mg PO BID 01/15/24 02/15/25 12/29/24 History folic acid 1 mg tablet 1 mg PO DAILY 01/15/24 02/15/25 12/29/24 History ondansetron 8 mg disintegrating 8 mg PO Q8H 01/15/24 02/15/25 Unknown History tablet calcium 500 mg tablet 500 mg PO BID 04/08/24 02/15/25 12/29/24 History B12 100 mcg PO DAILY 11/12/24 02/15/25 12/29/24 History Lidocaine-Prilocaine 1 dose topical .D8sxagi 11/12/24 02/15/25 Unknown History ferrous sulfate 325 mg (65 mg 325 mg PO DAILY 11/12/24 02/15/25 12/29/24 History iron) tablet (iron) potassium chloride 20 mEq/15 mL 20 meq PO BID 11/12/24 02/15/25 12/29/24 History oral liquid Saccharomyces boulardii 500 mg PO DAILY 01/06/25 02/15/25 Unknown History lansoprazole 30 mg capsule,delayed 30 mg PO DAILY 01/06/25 02/15/25 Unknown History release Allergies Allergy/AdvReac Type Severity Reaction Status Date / Time No Known Allergies Allergy Verified 02/15/25 07:49 Review of Systems Review of Systems: ROS unobtainable: Yes unobtainable due to medical condition PMFSH Past Medical History Medical History Adenocarcinoma of left lung, stage 4 Asthma Benign hypertension CKD (chronic kidney disease) Gallstone Metastasis to bone Secondary malignant neoplasm of brain Surgical History Surgical History H/O hysterectomy for benign disease Family History Family History Father Alcoholism Mother Cirrhosis Sibling Cancer Diabetes mellitus Depression Heart disease Social History Social History Social History: caffeine- coffee 10 tea 1/2 gallon soda 1 can Smoking packs per day: 2 Smoking cigarettes per day: 40.0 Years smoked: 48 Smoking pack-years: 96.00 Smoking status: Former smoker Tobacco type: cigarettes Second hand tobacco smoke exposure: No Alcohol intake: never Substance use: current Substance use type: marijuana Last use: 12/25/24 Do You Feel Safe in your Home?: Yes Lack of Transportation: No Lack of Food: Never True Current Housing: I Have Housing Concerned About Future Housing: No Difficulty Paying Gas/Electric Bills: No Difficulty Paying for Meds: No Currently Unemployed: No Education: High School Diploma/GED Difficulty w/ Childcare or Family Care: No Living arrangements: with family Occupation/Education: retired Gender identity (if verbalized by the patient): Female Sexual Orientation (if Verbalized by the Patient): Straight or Heterosexual Spiritual care concerns: No Exam Narrative: GENERAL: Chronically ill-appearing, well-nourished, and in no acute distress. HEAD: Normocephalic, atraumatic. EYES: PERRL and EOMI. ENT: Mucous membranes moist. CHEST: Clear to auscultation. No respiratory distress. HEART: Regular rate and rhythm. Normal peripheral pulses. ABDOMEN: Soft, nontender, nondistended. EXTREMITIES: Normal range of motion. No edema. SKIN: Warm, dry, no rash. NEURO: Alert and oriented x3. Course Course Emergency Course: 1439: Patient has received 3 L of fluid and is getting additional 500 mL bolus. Map in the 70s. Has had 4 readings with a systolic blood pressure greater than 90. Suspect significant hypovolemia. Patient not open not hospice conversation at this time. I have not seen family in the room to discuss this. Unsure if patient has decision-making capacity given her known brain metastases as well as the significant progression of illness currently. She has not been getting chemotherapy for a couple weeks and she cannot tongue midline. Suspect her cancers not responding well. Vital Signs Vital signs: Vital Signs Temperature 97.8 F 02/16/25 10:41 Pulse Rate 107 H 02/16/25 10:41 Respiratory Rate 18 02/16/25 10:41 Blood Pressure 73/50 L 02/16/25 10:41 Pulse Oximetry 100 02/16/25 10:41 Oxygen Delivery Room Air 02/16/25 10:41 Temperature 97.4 F L 02/16/25 11:05 Pulse Rate 84 02/16/25 14:30 Respiratory Rate 26 H 02/16/25 14:30 Blood Pressure 93/68 L 02/16/25 14:30 Pulse Oximetry 99 02/16/25 14:30 Oxygen Delivery Room Air 02/16/25 11:05 Medical Decision Making Vital Signs Vital Signs: Vital Signs Temperature 97.8 F 02/16/25 10:41 Pulse Rate 107 H 02/16/25 10:41 Respiratory Rate 18 02/16/25 10:41 Blood Pressure 73/50 L 02/16/25 10:41 Pulse Oximetry 100 02/16/25 10:41 Oxygen Delivery Room Air 02/16/25 10:41 Temperature 97.4 F L 02/16/25 11:05 Pulse Rate 84 02/16/25 14:30 Respiratory Rate 26 H 02/16/25 14:30 Blood Pressure 93/68 L 02/16/25 14:30 Pulse Oximetry 99 02/16/25 14:30 Oxygen Delivery Room Air 02/16/25 11:05 Lab Data 02/16/25 11:11 02/16/25 11:11 Labs: Lab Results 02/16/25 02/16/25 Range/Units 11:11 14:16 WBC 6.4 (4.5-10.0) K/mm3 RBC 4.24 (4.2-5.4) M/mm3 Hgb 12.8 (12.0-15.0) g/dL Hct 38.5 (37.0-47.0) % MCV 90.8 (80-100) fl MCH 30.2 (26-34) pg MCHC 33.2 (32-36) g/dl RDW 14.8 H (11.5-14.5) % Plt Count 428 H (150-375) k/mm3 MPV 8.9 (7.4-10.4) fl Immature Gran % (Auto) 3.3 H (0-0.5) % Neut % (Auto) 63.6 (45.5-73.1) % Lymph % (Auto) 16.7 L (18.3-44.2) % [place] % (Auto) 13.6 H (2.6-8.5) % Eos % (Auto) 0.8 (0-4.4) % Baso % (Auto) 2.0 H (0.2-1.2) % Lymph # (Auto) 1.07 (0.9-3.2) K/mm3 [place] # (Auto) 0.9 H (0.1-0.6) K/mm3 Eos # (Auto) 0.1 (0-0.3) K/mm3 Baso # (Auto) 0.1 (0.0-0.1) K/mm3 Abs Immat Gran (auto) 0.21 H (0.00-0.031) K/mm3 Absolute Neuts (auto) 4.1 (1.3-6.7) K/mm3 Absolute Nucleated RBC 0.000 (0.0-0.012) K/mm3 Nucleated RBC % 0.0 (0.0-0.2) % PT 14.1 (11.1-14.7) Seconds INR 1.1 APTT 28.3 (22.3-36.8) Seconds Sodium 129 L (137-145) mmol/L Potassium 3.3 L (3.4-5.0) mmol/L Chloride 90 L (98-107) mmol/L Carbon Dioxide 14 L (22-30) mmol/L Anion Gap 25 H (4-12) mmol/L BUN 61 H D (7-17) mg/dL Creatinine 7.74 H (0.7-1.0) mg/dL Estim Creat Clear Calc 5 ml/min Estimated GFR 5 L (59 - ) Glucose 130 H (65-110) mg/dL Lactic Acid 1.6 (0.7-2.0) mmol/L Calcium 7.8 L (8.4-10.2) mg/dL Total Bilirubin 0.4 (0.2-1.3) mg/dL AST 27 (14-36) U/L ALT 16 (6-35) U/L Alkaline Phosphatase 164 H (38-126) U/L Total Protein 8.1 (6.3-8.2) g/dL Albumin 4.4 (3.5-5.1) g/dL Urine Color Dark yellow (Yellow) Urine Appearance Turbid H (Clear) Urine pH 5.0 (5.0-9.0) Ur Specific [place] 1.020 (1.001-1.035) Urine Protein 3+ H (Negative) mg/dL Urine Glucose (UA) Negative (Negative) mg/dL Urine Ketones 1+ H (Negative) mg/dL Ur Blood (Man) Negative (Negative) Urine Nitrate Negative (Negative) Urine Bilirubin Negative (Negative) Urine Urobilinogen 1.0 (<2.0) mg/dL Add Ur Microanalysis Reviewed Leukocyte Esterase Rfl 1+ H (Negative) LORY/UL Urine RBC 11-20 H (0-2) /hpf Urine WBC >100 H (0-3) /hpf Ur Squamous Epith Cells Many H (Few) /hpf Urine Bacteria 1+ H /hpf Urine Casts >20 Hyaline Casts 3-4 H (None) /lpf Urine Mucus Present /lpf Critical Care Time Critical Care Time Critical Care Time: Yes Total Critical Care Time: 35 Discharge Plan Discharge Clinical Impression: Acute kidney injury, Dehydration, Lung cancer metastatic to bone, Acute UTI Patient Disposition: Still a Patient Condition: Serious Patient Language: Belarusian Prescriptions: No Action ondansetron 8 mg Tablet,Disintegrating 8 mg PO Q8H dexamethasone 4 mg Tablet 4 mg PO BID folic acid 1 mg Tablet 1 mg PO DAILY calcium 500 mg Tablet 500 mg PO BID Patient Comments: . B12 100 mcg 100 mcg PO DAILY Patient Comments: ...... ferrous sulfate [iron] 325 mg (65 mg iron) tablet 325 mg PO DAILY Lidocaine-Prilocaine 1 dose topical .[id number] potassium chloride 20 mEq/15 mL liquid 20 meq PO BID clotrimazole 1 % cream 1 applic topical Q12H Qty: 15 0RF Rx Instructions: Apply to affected area twice daily. losartan 50 mg tablet 50 mg PO DAILY Qty: 90 1RF hydrocodone-acetaminophen 5-325 mg tablet 1 tablet PO Q12H PRN (Reason: pain) Qty: 60 0RF lansoprazole 30 mg capsule,delayed release(DR/EC) 30 mg PO DAILY Saccharomyces boulardii 500 mg 500 mg PO DAILY loperamide 2 mg Capsule 2 mg PO TID Qty: 20 0RF Prevalite 4 gram Powder In Packet 4 g PO QAM@1000 Qty: 30 0RF Follow-up/Referrals: Amy Saldivar DO [Primary Care Provider] -
[2025-02-16] MEDS: SODIUM CHLORIDE 0.9% IV 500 ML 999 ML IV CONT (14:26)
[2025-02-16] MEDS: CALCIUM GLUCONATE 1,000 MG/10 ML VIAL 1000 MG IV PUSH (14:27)
[2025-02-16 14:33] LABS: Add Urine Microscopic? YES; Appearance Urine Turbid (Clear); Glucose Urine UA Negative (Negative); Leukocyte Esterase Ur 1+ LEU/UL (Negative); Need Manual Microscopic Reviewed; Nitrate Urine Negative (Negative); Non Pathogenic Casts >20; Specific Grav Ur 1.020 (1.001-1.035)
--- NOTE | 2025-02-16 15:30 | PM.IMHP ---
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 The patient presents here from her oncologist's office, Karla DOMINGUEZ, for further evaluation of acute renal failure.? She had an office visit today with outpatient labs drawn which showed a creatinine of 9.0, GFR 4, and BUN 57.? She has a history of adenocarcinoma to the left lung with metastasis to the brain and bone - patient states she has it all through her body, she reports the brain met has shrunk and is real little. ?Renal failure is accompanied by dizziness, weakness, and possible confusion - reports it has been going on for awhile. She reports chronic diarrhea for the past 3 weeks. She reports she has had ongoing diarrhea for the last 3 weeks. Was checked for c. diff in December which was negative. Diarrhea is also accompanied by poor PO intake (past 2 days) and abdominal pain. She denies nasuea and vomiting. ? She arrived to the emergency department A&O x2, reassessment showed patient to be A&O x3.? She is also reporting bone pain/aches, per chart review this has been a frequent complaint for the patient. Initial VS at presentation: ?97.8? F, HR 107, R 18, 173/50, and 100% on RA. ED workup showed: ?No leukocytosis, no anemia, normal coags, sodium 129, potassium 3.3, creatinine 7.74 and GFR 5 (1.5 and GFR 35 on 02/09), calcium 7.8 in the setting of a normal albumin level.? UA equivocal for infection, many epithelial cells.? CXR showed no acute process.? EKG showed sinus tachycardia with short [place] interval, borderline ST abnormality diffuse leads, baseline artifact. Review of Systems Review of Systems: All systems reviewed & are unremarkable except as noted in HPI and below PMFSH Past Medical History Medical History (Updated 02/16/25 @ 22:21 by Crys Hardy, ASSISTANT PROFESSOR OF MARINE BIOLOGY) History of giardia infection CKD (chronic kidney disease) Benign hypertension Metastasis to bone Adenocarcinoma of left lung, stage 4 Secondary malignant neoplasm of brain Gallstone Asthma Surgical History Surgical History History of cholecystectomy History of appendectomy H/O hysterectomy for benign disease Family History Family History Father Alcoholism Mother Cirrhosis Sibling Cancer Diabetes mellitus Depression Heart disease Social History Social History Social History: caffeine- coffee 10 tea 1/2 gallon soda 1 can Smoking packs per day: 2 Smoking cigarettes per day: 40.0 Years smoked: 48 Smoking pack-years: 96.00 Smoking status: Never smoker Tobacco type: cigarettes Second hand tobacco smoke exposure: No Alcohol intake: former Substance use: current Substance use type: marijuana Last use: 12/25/24 Do You Feel Safe in your Home?: Yes Lack of Transportation: No Lack of Food: Never True Current Housing: I Have Housing Concerned About Future Housing: No Difficulty Paying Gas/Electric Bills: No Difficulty Paying for Meds: No Currently Unemployed: No Education: Grade School Difficulty w/ Childcare or Family Care: No Living arrangements: with family Occupation/Education: retired Gender identity (if verbalized by the patient): Female Sexual Orientation (if Verbalized by the Patient): Straight or Heterosexual Spiritual care concerns: No Meds Home Medications and Allergies Home Medications ?Medication ?Instructions ?Recorded ?Confirmed ?Type dexamethasone 4 mg tablet 4 mg PO BID 01/15/24 02/16/25 History folic acid 1 mg tablet 1 mg PO DAILY 01/15/24 02/16/25 History ondansetron 8 mg disintegrating 8 mg PO Q8H 01/15/24 02/16/25 History tablet calcium 500 mg tablet 500 mg PO BID 04/08/24 02/16/25 History B12 100 mcg PO DAILY 11/12/24 02/16/25 History Lidocaine-Prilocaine 1 dose topical PRN PRN to numb 11/12/24 02/16/25 History port 30 min before access ferrous sulfate 325 mg (65 mg 325 mg PO DAILY 11/12/24 02/16/25 History iron) tablet (iron) potassium chloride 20 mEq/15 mL 20 meq PO BID 11/12/24 02/16/25 History oral liquid cholestyramine 4 gram oral powder 4 g PO QAM@1000 #30 ea 01/03/25 02/16/25 Rx for suspension in a packet (Prevalite) loperamide 2 mg capsule 2 mg PO TID #20 caps 01/03/25 02/16/25 Rx Saccharomyces boulardii 500 mg PO DAILY 01/06/25 02/16/25 History lansoprazole 30 mg capsule,delayed 30 mg PO DAILY 01/06/25 02/16/25 History release hydrocodone 5 mg-acetaminophen 325 1 tablet PO Q12H PRN pain #60 tabs 02/15/25 02/16/25 Rx mg tablet losartan 50 mg tablet 50 mg PO DAILY #90 tabs 02/15/25 02/16/25 Rx Allergies Allergy/AdvReac Type Severity Reaction Status Date / Time No Known Allergies Allergy Verified 02/15/25 07:49 Vital Signs Vital Signs - 24 hr 02/16/25 10:41 02/16/25 11:00 02/16/25 11:05 Temperature 97.8 F 97.4 F L Pulse Rate 107 H 102 H 101 H Respiratory Rate 18 19 19 Blood Pressure 73/50 L 92/38 L 92/38 L Pulse Oximetry 100 91 100 Oxygen Delivery Room Air Room Air 02/16/25 11:24 02/16/25 11:30 02/16/25 11:43 Temperature Pulse Rate 98 92 84 Respiratory Rate 24 H 15 29 H Blood Pressure 71/59 L 81/55 L 73/54 L Pulse Oximetry 100 100 Oxygen Delivery 02/16/25 11:45 02/16/25 12:00 02/16/25 12:15 Temperature Pulse Rate 84 82 84 Respiratory Rate 32 H 15 27 H Blood Pressure 70/60 L 87/64 L 79/55 L Pulse Oximetry 100 100 100 Oxygen Delivery 02/16/25 12:24 02/16/25 12:30 02/16/25 12:45 Temperature Pulse Rate 84 84 84 Respiratory Rate 15 16 Blood Pressure 77/54 L 70/55 L 79/54 L Pulse Oximetry 100 100 Oxygen Delivery 02/16/25 13:00 02/16/25 13:15 02/16/25 13:33 Temperature Pulse Rate 83 80 84 Respiratory Rate 16 17 24 H Blood Pressure 81/62 L 91/54 L 90/53 L Pulse Oximetry 100 100 Oxygen Delivery 02/16/25 13:45 02/16/25 14:01 02/16/25 14:15 Temperature Pulse Rate 88 84 81 Respiratory Rate 29 H 18 26 H Blood Pressure 86/63 L 107/61 90/71 L Pulse Oximetry 94 100 100 Oxygen Delivery 02/16/25 14:26 02/16/25 14:28 02/16/25 14:30 Temperature Pulse Rate 83 83 84 Respiratory Rate 22 H 24 H 26 H Blood Pressure 102/66 98/66 L 93/68 L Pulse Oximetry 99 97 99 Oxygen Delivery 02/16/25 14:45 02/16/25 15:00 02/16/25 15:15 Temperature Pulse Rate 86 88 88 Respiratory Rate 21 H 18 13 Blood Pressure 105/80 97/72 L 105/71 Pulse Oximetry 100 100 100 Oxygen Delivery Exam Const: General: comfortable and no acute distress Other: , female, chronically ill-appearing HENMT: Face/Nose/Sinus: Normal nares present Mouth: Yes dry mucous membranes Eyes: General: appearance normal, both eyes and all related structures Sclera: sclerae normal Pupils: Equal, round and reactive pupils present EOM: EOMs intact bilaterally Resp: Effort & Inspection: normal respiratory effort Auscultation: clear to auscultation bilaterally Cardio: Rate: regular rate Rhythm: regular rhythm Other: S1-S2 present without murmur, rub, ectopy GI: Other: Abdomen soft, nondistended, nontender. Normoactive to hyperactive bowel sounds in all quadrants. Skin: General skin exam: normal color and no rashes or lesions noted Wounds: no wounds Neuro: Speech: normal speech Motor exam (neuro): 5/5 motor strength present throughout Sensory Exam: normal sensation Other: A/Ox self, time, place, and some situation. Extrem: General: normal to inspection Psych: Mental Status: mental status grossly normal Affect: normal affect Other: Fair to poor insight and judgment, pleasant H&P: Results Labs Labs: Short CBC 02/16/25 Range/Units 11:11 WBC 6.4 (4.5-10.0) K/mm3 Hgb 12.8 (12.0-15.0) g/dL Hct 38.5 (37.0-47.0) % Plt Count 428 H (150-375) k/mm3 BMP 02/16/25 11:11 Sodium 129 L Potassium 3.3 L Chloride 90 L Carbon Dioxide 14 L BUN 61 H D Creatinine 7.74 H Glucose 130 H Calcium 7.8 L Liver Function 02/16/25 Range/Units 11:11 Total Bilirubin 0.4 (0.2-1.3) mg/dL AST 27 (14-36) U/L ALT 16 (6-35) U/L Alkaline Phosphatase 164 H (38-126) U/L Albumin 4.4 (3.5-5.1) g/dL Urine 02/16/25 Range/Units 14:16 Urine Color Dark yellow (Yellow) Urine Appearance Turbid H (Clear) Urine pH 5.0 (5.0-9.0) Ur Specific [place] 1.020 (1.001-1.035) Urine Protein 3+ H (Negative) mg/dL Urine Glucose (UA) Negative (Negative) mg/dL Assessment and Plan Assessment and plan (1) Acute kidney injury superimposed on CKD: Code(s): N17.9 - Acute kidney failure, unspecified; N18.9 - Chronic kidney disease, unspecified Status: Acute Assessment and Plan: - creatinine 9.0, BUN 57, GFR 4 -> 7.74, BUN 61, GFR 5. Previously 1.5, BUN 16, GFR 35 on 02/09/2025. - nephrology consulted Check renal ultrasound Checked CK, Mag, phos, TSH - likely multifactorial including her renal on (poor p.o. intake, ongoing diarrhea), hypotension - IV fluids: 2L bolus -> 125 mL/hour - trend renal function - trend electrolytes, correct as needed (2) Hyponatremia: Code(s): E87.1 - Hypo-osmolality and hyponatremia Status: Acute Assessment and Plan: - Na 125/129, previously 132 on 02/09 - suspect this is secondary to poor po intake - NS 2L bolus -> 125 mL/hr - monitor - nephrology on case (3) Hypocalcemia: Code(s): E83.51 - Hypocalcemia Status: Acute Assessment and Plan: - Ca 7.8 - initial repletion in the ED with 1G IVP, recheck in AM - monitor (4) Acute UTI: Code(s): N39.0 - Urinary tract infection, site not specified Status: Acute Assessment and Plan: - UA equivocal for infection versus contamination - UC pending - previous micro reviewed, no previous resistances - started on Ceftriaxone on 02/16 (5) Adenocarcinoma of left lung, stage 4: Code(s): C34.92 - Malignant neoplasm of unspecified part of left bronchus or lung Status: Chronic Assessment and Plan: - stage 4 dental carcinoma of the left lung with metastasis to the brain and bone - follows with Karla DOMINGUEZ, last appt today (02/16) - undergoing chemo and radiation, next chemo scheduled for 02/17 (6) Benign hypertension: Code(s): I10 - Essential (primary) hypertension Status: Chronic Assessment and Plan: - chronic, currently 114/69. arrived to significantly hypertensive at 73/50. - hold home medication: Losartan - monitor Plan Diet: Renal/dialysis GI Prophylaxis: Not currently indicated DVT Prophylaxis: SCD IV fluids: 2L bolus -> 125 mL/hr Lines/Tubes: Peripheral IV, Min Code Status: DNR Quality VTE Prophylaxis VTE prophylaxis: mechanical ordered Hospitalist MIPS Advance Care Plan I have confirmed that the patient's Advanced Care Plan is present, code status is documented, or surrogate decision maker is listed in patient medical record.: Yes Medication Reconciliation I have utilized all available resources to obtain, update and review the patients current medications (includes all prescriptions, OTC, herbals, cannabis, and nutritional supplements).: Yes
[2025-02-16] MEDS: SODIUM CHLORIDE 0.9% IV 1,000 ML 125 ML IV CONT ×2 (15:44→23:44)
--- NOTE | 2025-02-16 17:25 | P.CONNP_ITS ---
Assessment and Plan Assessment and plan (1) Acute kidney injury: Code(s): N17.9 - Acute kidney failure, unspecified Status: Resolved Assessment and Plan: * as noted on admission * multifactorial etiology: * prerenal factors (poor oral intake + ongoing diarrhea) * hemodynamic instability/hypotension * infection/early sepsis(?) * use of ARB prior to admission * other(?) * check renal ultrasound, urine studies, and CPK * agreed with IVF resuscitation * optimized hemodynamics * hold losartan * follow trend of repeat labs and UOP (2) Stage 3a chronic kidney disease: Code(s): N18.31 - Chronic kidney disease, stage 3a Status: Chronic Assessment and Plan: * baseline creatinine runs ~ 0.9 - 1.2mg/dl * presumably due to hypertension and age-related change (3) Hypotension: Code(s): I95.9 - Hypotension, unspecified Status: Resolved Assessment and Plan: * suspected to be secondary to hypovolemia/volume depletion/dehydration * clinically better s/p IVF resuscitation in the ER * monitor for the need for vasopressor therapy * lactic acid normal * follow trend of hemodynamics (4) UTI (urinary tract infection): Code(s): N39.0 - Urinary tract infection, site not specified Status: Resolved Assessment and Plan: * admission urinalysis suggestive * follow culture data * on antibiotics (5) Metabolic acidosis: Code(s): E87.20 - Acidosis, unspecified Status: Resolved Assessment and Plan: * due to acute kidney injury/acute renal failure possibly in conjunction from GI losses (diarrhea) * consider adding bicarb to IVFs if worsens * follow trend of CO2 (6) Hyponatremia: Code(s): E87.1 - Hypo-osmolality and hyponatremia Status: Acute Assessment and Plan: * has been present as far back as early 2023 * probably due to a combination of SUDHA, volume depletion, and underlying malignancy/cancer * follow trend (7) Diarrhea: Qualifiers: Diarrhea type: presumed infectious Qualified Code(s): R19.7 - Diarrhea, unspecified Code(s): R19.7 - Diarrhea, unspecified Status: Acute Assessment and Plan: * appears to be somewhat of a chronic issue * on Imodium as an outpatient * noted GI evaluation on last hospitalization (8) Adenocarcinoma of left lung, stage 4: Code(s): C34.92 - Malignant neoplasm of unspecified part of left bronchus or lung Status: Chronic Assessment and Plan: * known diagnosis * chemotherapy apparently on hold * follows with Hem/Onc I will continue to follow the patient with you while she remains hospitalized and make further recommendations as deemed necessary. Thank you for allowing me to participate in the care of this patient. L History of Present Illness Reason for Consult Consult date: 02/16/25 Reason for consult: acute renal failure Chief Complaint Chief complaint: SUDHA/Dehydration/UTI History of Present Illness Narrative: The patient is a 64-year-old female with a past medical history as outlined below who presented to [facility] Emergency Room for evaluation of abnormal labs. She had an office visit today with her oncologist with outpatient labs drawn which showed a creatinine of 9.0, GFR 4, and BUN 57.? She has a history of adenocarcinoma to the left lung with metastasis to the brain and bone. ?Her SUDHA/ARF was associated with symptoms of dizziness, weakness, and possible confusion - reports it has been going on for awhile. She also she reports ongoing diarrhea for the last 3 weeks -- her diarrhea is also accompanied by poor PO intake (past 2 - 3 days if not longer) and abdominal pain. She denies nasuea and vomiting. She presented to the ER for further assessment. On arrival to the ER she was found to be hemodyanmically stable and without fever. Subsequent testing demonstrated no leukocytosis, no anemia, normal coags, sodium 129, potassium 3.3, creatinine 7.74, calcium 7.8 in the setting of a normal albumin level.? UA equivocal for infection, many epithelial cells.? CXR showed no acute process.? EKG showed sinus tachycardia with short ID interval, borderline ST abnormality diffuse leads, baseline artifact. She was inititated on IVFs and subsequently admitted to the hospital for further evaluation and therapy. Renal consultation was requested due to her acute kidney injury/acute renal failure. From review of her records, her baseline creatinine runs around 0.9 - 1.2 mg/dL. This would suggest that she has some degree of mild renal insufficiency at baseline most likely secondary to hypertension and age. Gven the significant change in her renal function on admission and by outpatient labs, the presumed etiology is that of severe volume depletion/dehydration with a possible component of renal hypoperfusion secondary to GI losses/diarrhea for last 2 weeks which is a similar presentation to her last hospitalization at [facility]. This was father further precipitated by her outpatient use of her losartan. Currently, the time my evaluation, she does not appear to be any acute distress and her granddaughter was at bedside. Review of Systems 2 Review of Systems: As per HPI. [facility] Past Medical History Medical History (Updated 02/16/25 @ 22:24 by Crys Hardy APRN) History of giardia infection CKD (chronic kidney disease) Secondary malignant neoplasm of brain Benign hypertension Metastasis to bone Adenocarcinoma of left lung, stage 4 Gallstone Asthma Surgical History Surgical History History of cholecystectomy History of appendectomy H/O hysterectomy for benign disease Family History Family History Father Alcoholism Mother Cirrhosis Sibling Cancer Diabetes mellitus Depression Heart disease Social History Social History Social History: caffeine- coffee 10 tea 1/2 gallon soda 1 can Smoking packs per day: 2 Smoking cigarettes per day: 40.0 Years smoked: 48 Smoking pack-years: 96.00 Smoking status: Never smoker Tobacco type: cigarettes Second hand tobacco smoke exposure: No Alcohol intake: former Substance use: current Substance use type: marijuana Last use: 12/25/24 Do You Feel Safe in your Home?: Yes Lack of Transportation: No Lack of Food: Never True Current Housing: I Have Housing Concerned About Future Housing: No Difficulty Paying Gas/Electric Bills: No Difficulty Paying for Meds: No Currently Unemployed: No Education: Grade School Difficulty w/ Childcare or Family Care: No Living arrangements: with family Occupation/Education: retired Gender identity (if verbalized by the patient): Female Sexual Orientation (if Verbalized by the Patient): Straight or Heterosexual Spiritual care concerns: No Meds Home Medications and Allergies Home Medications ?Medication ?Instructions ?Recorded ?Confirmed ?Type dexamethasone 4 mg tablet 4 mg PO BID 01/15/24 02/16/25 History folic acid 1 mg tablet 1 mg PO DAILY 01/15/24 02/16/25 History ondansetron 8 mg disintegrating 8 mg PO Q8H 01/15/24 02/16/25 History tablet calcium 500 mg tablet 500 mg PO BID 04/08/24 02/16/25 History B12 100 mcg PO DAILY 11/12/24 02/16/25 History Lidocaine-Prilocaine 1 dose topical PRN PRN to numb 11/12/24 02/16/25 History port 30 min before access ferrous sulfate 325 mg (65 mg 325 mg PO DAILY 11/12/24 02/16/25 History iron) tablet (iron) potassium chloride 20 mEq/15 mL 20 meq PO BID 11/12/24 02/16/25 History oral liquid cholestyramine 4 gram oral powder 4 g PO QAM@1000 #30 ea 01/03/25 02/16/25 Rx for suspension in a packet (Prevalite) loperamide 2 mg capsule 2 mg PO TID #20 caps 01/03/25 02/16/25 Rx Saccharomyces boulardii 500 mg PO DAILY 01/06/25 02/16/25 History lansoprazole 30 mg capsule,delayed 30 mg PO DAILY 01/06/25 02/16/25 History release hydrocodone 5 mg-acetaminophen 325 1 tablet PO Q12H PRN pain #60 tabs 02/15/25 02/16/25 Rx mg tablet losartan 50 mg tablet 50 mg PO DAILY #90 tabs 02/15/25 02/16/25 Rx Allergies Allergy/AdvReac Type Severity Reaction Status Date / Time No Known Allergies Allergy Verified 02/15/25 07:49 Vital Signs Vital Signs Temp Pulse Resp BP Pulse Ox O2 Del Method 02/16/25 15:50 97.2 F L 87 18 104/65 92 02/16/25 15:15 88 13 105/71 100 02/16/25 15:00 88 18 97/72 L 100 02/16/25 14:45 86 21 H 105/80 100 02/16/25 14:30 84 26 H 93/68 L 99 02/16/25 14:28 83 24 H 98/66 L 97 02/16/25 14:26 83 22 H 102/66 99 02/16/25 14:15 81 26 H 90/71 L 100 02/16/25 14:01 84 18 107/61 100 02/16/25 13:45 88 29 H 86/63 L 94 02/16/25 13:33 84 24 H 90/53 L 100 02/16/25 13:15 80 17 91/54 L 100 02/16/25 13:00 83 16 81/62 L 02/16/25 12:45 84 16 79/54 L 100 02/16/25 12:30 84 15 70/55 L 100 02/16/25 12:24 84 77/54 L 02/16/25 12:15 84 27 H 79/55 L 100 02/16/25 12:00 82 15 87/64 L 100 02/16/25 11:45 84 32 H 70/60 L 100 02/16/25 11:43 84 29 H 73/54 L 02/16/25 11:30 92 15 81/55 L 100 02/16/25 11:24 98 24 H 71/59 L 100 02/16/25 11:05 97.4 F L 101 H 19 92/38 L 100 Room Air 02/16/25 11:00 102 H 19 92/38 L 91 02/16/25 10:41 97.8 F 107 H 18 73/50 L 100 Room Air Exam 2 Narrative: GENERAL APPEARANCE: elderly female in no acute distress HEENT: normocephalic, atraumatic, normal conjunctiva and sclera, nares patient NECK: no lymphadenopathy, thyromegaly, or JVD MOUTH: normal lips, teeth, and gums CARDIOVASCULAR: RRR, normal S1 and S2, no rub RESPIRATORY: clear to auscultatio ABDOMEN: soft, nontender, nondistended, positive bowel sounds present EXTREMITIES: no evidence of cyanosis, clubbing, or edema NEUROLOGICAL: alert and oriented x 3; CN II - XII intact bilaterally; no focal deficits noted Results Lab Results 02/18/25 08:10 02/18/25 08:10 Lab results: Most recent lab results Calcium 7.8 mg/dL (8.4-10.2) L 02/16/25 11:11
--- NOTE | 2025-02-16 17:45 | ADMGEN ---
This patient, Regi Snyder, was admitted to IMU Room 201-01 at 1550. Patient/family oriented to hospital policies and general routines including ID bracelet, bed and alarms, visiting hours, pain management, procedures, bathroom and other care routines, personal items, smoking policy, room service/diet, and visiting hours. Information on how to activate the Rapid Response Team has been discussed. Patient/Family are encouraged to report perceived risks to care and to ask questions if they do not understand what they are told or what they should do.
[2025-02-16 21:02] LABS: Urine Eos QC 2nd Tech Confirmed
[2025-02-16 21:12] LABS: Urea Random Urine 324 MG/DL
[2025-02-16 21:22] LABS: Total Protein Urine Random 380 mg/dL; Ur Ttl Prot Creatinine Ratio 2.80 mg/mg (0-0.20)
[2025-02-16 21:36] LABS: Toxigenic C. Diff NEGATIVE (NEGATIVE)
[2025-02-17] VITALS (16 sets, daily range): BP systolic 97–144; BP diastolic 53–86; PULSE 71–97; RESP 16–20; TEMP 36.4–36.6; O2SAT 98–100; BMI 23.9
[2025-02-17] MEDS: LOPERAMIDE HCL 2 MG CAPSULE PO ×4 (00:08→23:21)
[2025-02-17 04:32] LABS: Hematocrit 26.5 % (37.0-47.0); Hemoglobin 8.6 g/dL (12.0-15.0); Immature Granulocyte Percent A 4.4 % (0-0.5); Lymphocytes Absolute Auto 1.09 K/mm3 (0.9-3.2); Mean Corpuscular HGB Conc 32.5 g/dl (32-36); Mean Corpuscular Hemoglobin 30.5 pg (26-34); Mean Corpuscular Volume 94.0 fl (80-100); Nucleated Red Blood Cells Absolute Auto 0.000 K/mm3 (0.0-0.012); Nucleated Red Blood Cells Perc 0.0 % (0.0-0.2); Platelet Count Result 274 k/mm3 (150-375); Red Blood Count 2.82 M/mm3 (4.2-5.4); White Blood Count 4.8 K/mm3 (4.5-10.0)
[2025-02-17 04:51] LABS: Alanine Aminotransferase 9 U/L (6-35); Albumin Level 2.6 g/dL (3.5-5.1); Alkaline Phosphatase 103 U/L (38-126); Anion Gap 10 mmol/L (4-12); Aspartate Amino Transferase 19 U/L (14-36); Bilirubin,Total < 0.1 mg/dL (0.2-1.3); Blood Urea Nitrogen 44 mg/dL (7-17); Calcium 6.2 mg/dL (8.4-10.2); Carbon Dioxide 14 mmol/L (22-30); Chloride 106 mmol/L (98-107); Estimated CRCL calculation 9 ml/min; Estimated Glomerular Filt Rate 10; Glucose 89 mg/dL (65-110); Magnesium 1.5 mg/dL (1.6-2.3); Potassium 2.3 mmol/L (3.4-5.0); Sodium 130 mmol/L (137-145); Total Protein 5.1 g/dL (6.3-8.2)
[2025-02-17 05:29] LABS: Hematocrit 27.0 % (37.0-47.0); Hemoglobin 8.7 g/dL (12.0-15.0); Immature Granulocyte Percent A 4.5 % (0-0.5); Lymphocytes Absolute Auto 0.96 K/mm3 (0.9-3.2); Mean Corpuscular HGB Conc 32.2 g/dl (32-36); Mean Corpuscular Hemoglobin 30.2 pg (26-34); Mean Corpuscular Volume 93.8 fl (80-100); Nucleated Red Blood Cells Absolute Auto 0.000 K/mm3 (0.0-0.012); Nucleated Red Blood Cells Perc 0.0 % (0.0-0.2); Platelet Count Result 285 k/mm3 (150-375); Red Blood Count 2.88 M/mm3 (4.2-5.4); White Blood Count 4.7 K/mm3 (4.5-10.0)
[2025-02-17 05:37] LABS: Alanine Aminotransferase 9 U/L (6-35); Albumin Level 2.6 g/dL (3.5-5.1); Alkaline Phosphatase 101 U/L (38-126); Anion Gap 12 mmol/L (4-12); Aspartate Amino Transferase 20 U/L (14-36); Bilirubin,Total < 0.1 mg/dL (0.2-1.3); Blood Urea Nitrogen 42 mg/dL (7-17); Calcium 6.1 mg/dL (8.4-10.2); Carbon Dioxide 11 mmol/L (22-30); Chloride 107 mmol/L (98-107); Creatine Kinase 41 U/L (30-135); Estimated CRCL calculation 9 ml/min; Estimated Glomerular Filt Rate 10; Glucose 90 mg/dL (65-110); Magnesium 1.5 mg/dL (1.6-2.3); Potassium 2.4 mmol/L (3.4-5.0); Sodium 130 mmol/L (137-145); Total Protein 5.2 g/dL (6.3-8.2)
[2025-02-17 05:41] LABS: Thyroid Stimulating Hormone Reflex 1.060 uIU/mL (0.465-4.68)
[2025-02-17] MEDS: MAGNESIUM SULF 2 GM/WATER 50ML 2 GM/50 ML BAG IVPB (06:05)
[2025-02-17] MEDS: POTASSIUM CHLORIDE 20 MEQ ER TABLET 40 MEQ PO ×2 (06:05→08:29)
[2025-02-17] MEDS: SODIUM CHLORIDE 0.9% IV 1,000 ML 125 ML IV CONT ×3 (06:05→22:55)
[2025-02-17] MEDS: PANTOPRAZOLE 40 MG TABLET PO (08:28)
[2025-02-17] MEDS: FOLIC ACID 1 MG TABLET PO (08:28)
[2025-02-17] MEDS: FERROUS SULFATE 325 MG TABLET DR BY MOUTH ×2 (08:28→17:11)
[2025-02-17] MEDS: CALCIUM CARBONATE (OSCAL) 500 MG TABLET PO ×2 (08:29→17:11)
[2025-02-17] MEDS: POTASSIUM CHLORIDE 20 MEQ PACKET (FOR LIQUID) PO ×2 (08:29→17:11)
[2025-02-17] MEDS: CHOLESTYRAMINE LIGHT 4 GM POWD.PACK PO ×2 (11:14→17:11)
[2025-02-17 13:43] LABS: Anion Gap 10 mmol/L (4-12); Blood Urea Nitrogen 34 mg/dL (7-17); Calcium 6.5 mg/dL (8.4-10.2); Carbon Dioxide 14 mmol/L (22-30); Chloride 106 mmol/L (98-107); Estimated CRCL calculation 13 ml/min; Estimated Glomerular Filt Rate 15; Glucose 134 mg/dL (65-110); Potassium 3.4 mmol/L (3.4-5.0); Sodium 130 mmol/L (137-145)
--- NOTE | 2025-02-17 14:15 | P.PNNP_ITS ---
Progress Note: A&P Assessment and Plan (1) Acute kidney injury: Code(s): N17.9 - Acute kidney failure, unspecified Status: Resolved Assessment and Plan: * improvement noted * as noted on admission * multifactorial etiology: * prerenal factors (poor oral intake + ongoing diarrhea) * hemodynamic instability/hypotension * infection/early sepsis(?) * use of ARB prior to admission * other(?) * evaluation noted: * renal ultrasound okay * urine electrolytes prerenal * urine eosinophils negative * CPK okay * moderate proteinuria * continue IVF resuscitation * optimized hemodynamics * holding losartan * follow trend of repeat labs and UOP (2) Stage 3a chronic kidney disease: Code(s): N18.31 - Chronic kidney disease, stage 3a Status: Chronic Assessment and Plan: * baseline creatinine runs ~ 0.9 - 1.2mg/dl * presumably due to hypertension and age-related change (3) Hypotension: Code(s): I95.9 - Hypotension, unspecified Status: Resolved Assessment and Plan: * suspected to be secondary to hypovolemia/volume depletion/dehydration * clinically better s/p IVF resuscitation in the ER * monitor for the need for vasopressor therapy * lactic acid normal * follow trend of hemodynamics (4) UTI (urinary tract infection): Code(s): N39.0 - Urinary tract infection, site not specified Status: Resolved Assessment and Plan: * admission urinalysis suggestive * follow culture data * on antibiotics (5) Metabolic acidosis: Code(s): E87.20 - Acidosis, unspecified Status: Resolved Assessment and Plan: * due to acute kidney injury/acute renal failure possibly in conjunction from GI losses (diarrhea) * add oral sodium bicarbonate to compensate * follow trend of CO2 (6) Hyponatremia: Code(s): E87.1 - Hypo-osmolality and hyponatremia Status: Acute Assessment and Plan: * has been present as far back as early 2023 * probably due to a combination of SUDHA, volume depletion, and underlying malignancy/cancer * follow trend (7) Diarrhea: Qualifiers: Diarrhea type: presumed infectious Qualified Code(s): R19.7 - Diarrhea, unspecified Code(s): R19.7 - Diarrhea, unspecified Status: Acute Assessment and Plan: * appears to be somewhat of a chronic issue * on Imodium as an outpatient * GI following (8) Adenocarcinoma of left lung, stage 4: Code(s): C34.92 - Malignant neoplasm of unspecified part of left bronchus or lung Status: Chronic Assessment and Plan: * known diagnosis * chemotherapy apparently on hold * follows with Hem/Onc Will continue to follow. Subjective Date/time seen: 02/17/25 14:15 Interval history: Follow-up for acute kidney injury/acute renal failure on chronic kidney disease. Improvement in renal function/creatinine noted with IVF resuscitation, still having issues with diarrhea per nursing; no apparent distress noted at the time of my visit; no other events overnight or erlier this morning. Exam Narrative: General: elderly but WD/WN female in NAD Heart: normal S1 and S2; no rub Lungs: clear anteriolry Abdomen: soft, nontender, nondistended, positive bowel sounds Extremities: no cyanosis or clubbing; trace edema Skin: warm and dry Objective Data Vital Signs Vital Signs: Vital Signs Temp Pulse Resp BP Pulse Ox O2 Del Method 02/17/25 14:00 97 02/17/25 12:00 81 02/17/25 11:11 97.8 F 76 18 111/65 100 02/17/25 10:00 77 02/17/25 08:00 85 02/17/25 07:17 97.6 F 74 18 97/56 L 99 02/17/25 06:00 73 02/17/25 04:08 97.6 F 75 16 109/53 L 98 02/17/25 04:00 80 02/17/25 04:00 Room Air 02/17/25 02:00 77 02/17/25 00:00 82 02/17/25 00:00 Room Air 02/16/25 23:19 97.6 F 81 16 105/57 L 96 02/16/25 22:00 84 02/16/25 20:00 83 02/16/25 20:00 Room Air 02/16/25 19:43 97.6 F 84 16 114/69 100 06/24/25 18:00 88 02/16/25 15:50 97.2 F L 87 18 104/65 92 02/16/25 15:15 88 13 105/71 100 Intake/Output Intake/Output: Intake & Output 02/14/25 02/15/25 02/16/25 02/17/25 23:59 23:59 23:59 23:59 Intake Total 4680 3193.8 Output Total 50 751 Balance 4630 2442.8 Meds/Results Medications: Active Medications Generic Name Dose Route Start Last Admin Trade Name Freq PRN Reason Stop Dose Admin Acetaminophen 650 mg 02/16/25 14:42 Acetaminophen 325 Mg Tablet PO Q4H PRN Mild Pain (1-3) or Fever Hydrocodone Bitart/Acetaminophen 1 tab 02/16/25 22:21 Hydrocodone/Acetaminophen (*Crx) 5-325 Mg Tablet PO Q12H PRN Pain Rated 4-6 Calcium Carbonate 500 mg 02/17/25 09:00 02/17/25 08:29 Calcium Carbonate (Oscal) 500 Mg Tablet PO 500 mg BID LISSETTE Administration Cholestyramine Resin 4 gm 02/17/25 18:00 Cholestyramine Light 4 Gm Powd.Pack PO BID@1000,1800 LISSETTE Dexamethasone 4 mg 02/17/25 08:00 02/17/25 08:29 Dexamethasone 4 Mg Tablet PO 4 mg BIDWM LISSETTE Administration Ferrous Sulfate 325 mg 02/17/25 08:00 02/17/25 08:28 Ferrous Sulfate [address] BY MOUTH 325 mg BIDWM LISSETTE Administration Folic Acid 1 mg 02/17/25 09:00 02/17/25 08:28 Folic Acid 1 Mg Tablet PO 1 mg DAILY LISSETTE Administration Sodium Chloride 1,000 mls @ 125 mls/hr 02/16/25 14:45 02/17/25 14:07 Normal Saline Iv IV CONT 125 mls/hr .Q8H LISSETTE Administration Ceftriaxone Sodium 1 gm in 50 mls @ 100 mls/hr 02/17/25 14:00 02/17/25 14:07 Rocephin 1 Gm/Ns 50 Ml IVPB 100 mls/hr Q24H LISSETTE Administration Loperamide HCl 2 mg 02/17/25 00:04 02/17/25 14:50 Loperamide Hcl 2 Mg Capsule PO 2 mg TID PRN Administration Diarrhea Ondansetron HCl 4 mg 02/16/25 14:42 Ondansetron Inj 4 Mg/2 Ml Vial IV PUSH Q4H PRN Nausea Pantoprazole Sodium 40 mg 02/17/25 09:00 02/17/25 08:28 Pantoprazole 40 Mg Tablet PO 40 mg QAM LISSETTE Administration Potassium Chloride 20 meq 02/17/25 09:00 02/17/25 08:29 Potassium Chloride 20 Meq Packet (For Liquid) PO 20 meq BID LISSETTE Administration Radiology Results: ITS Impressions Chest X-Ray 02/16/25 11:50 IMPRESSION: No acute process. Renal Ultrasound 02/17/25 08:54 IMPRESSION: 1. Normal kidneys without hydronephrosis. Labs Labs: Laboratory Results - last 24 hr 02/17/25 02/17/25 04:00 05:11 WBC 4.8 4.7 RBC 2.82 L 2.88 L Hgb 8.6 L D 8.7 L Hct 26.5 L 27.0 L MCV 94.0 93.8 MCH 30.5 30.2 MCHC 32.5 32.2 RDW 14.7 H 14.7 H Plt Count 274 285 MPV 8.8 8.7 Immature Gran % (Auto) 4.4 H 4.5 H Neut % (Auto) 51.6 51.9 Lymph % (Auto) 22.8 20.6 Collin % (Auto) 17.2 H 18.5 H Eos % (Auto) 2.5 3.0 Baso % (Auto) 1.5 H 1.5 H Lymph # (Auto) 1.09 0.96 Collin # (Auto) 0.8 H 0.9 H Eos # (Auto) 0.1 0.1 Baso # (Auto) 0.1 0.1 Abs Immat Gran (auto) 0.21 H 0.21 H Absolute Neuts (auto) 2.5 2.4 Absolute Nucleated RBC 0.000 0.000 Nucleated RBC % 0.0 0.0 Sodium 130 L 130 L Potassium 2.3 L* 2.4 L* Chloride 106 107 Carbon Dioxide 14 L 11 L Anion Gap 10 12 BUN 44 H D 42 H Creatinine 4.51 H 4.25 H Estim Creat Clear Calc 9 9 Estimated GFR 10 L 10 L Glucose 89 90 Calcium 6.2 L 6.1 L Phosphorus 4.0 Magnesium 1.5 L 1.5 L Total Bilirubin < 0.1 L < 0.1 L AST 19 20 ALT 9 9 Alkaline Phosphatase 103 101 Total Creatine Kinase 41 Total Protein 5.1 L 5.2 L Albumin 2.6 L 2.6 L TSH (Reflex) 1.060
--- NOTE | 2025-02-17 14:41 | P.CONGI_ITS ---
Assessment and Plan Assessment and plan (1) Diarrhea: Qualifiers: Diarrhea type: presumed infectious Qualified Code(s): R19.7 - Diarrhea, unspecified Code(s): R19.7 - Diarrhea, unspecified Status: Acute Assessment and Plan: The patient is experiencing chronic diarrhea in the context of chemotherapy and immunotherapy. While typically self-limiting after each cycle per patient and daughter report, this episode has persisted despite the discontinuation of all chemotherapeutic agents. 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 She has shown a partial response to cholestyramine 1x/day, so I will increase the dose to twice daily. There is still potential for further dose increase, up to 4 times a day. At this time, we'll continue with symptomatic management and observe her response. Microscopic colitis is a consideration; however, a diagnostic colonoscopy with biopsies is not advisable given her current acute renal failure, which is improved compared to yesterday's but still at very high creatinine levels. GI Consult Note Consult date/time: 02/17/25 14:41 Reason for consult: Diarrhea-renal failure HPI: Regi Snyder is a 64-year-old female presenting with dizziness and generalized weakness, with a creatinine elevated to 9.0 as noted by her oncologist, motivating her ED referral. She was admitted last month for persistent diarrhea, which she has been managing with symptomatic therapy (Imodium and daily cholestyramine) after a negative C. difficile test three weeks ago. 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 She denies rectal bleeding and abdominal pain but reports a 10 lb weight loss. Recent endoscopic evaluations were normal (colonoscopy November 2024, EGD September 2024) Review of Systems 2 Review of Systems: All systems reviewed & are unremarkable except as noted in HPI and below PMFSH Past Medical History Medical History (Updated 02/16/25 @ 22:24 by Crys Hardy APRN) History of giardia infection CKD (chronic kidney disease) Benign hypertension Metastasis to bone Adenocarcinoma of left lung, stage 4 Secondary malignant neoplasm of brain Gallstone Asthma Surgical History Surgical History History of cholecystectomy History of appendectomy H/O hysterectomy for benign disease Family History Family History Father Alcoholism Mother Cirrhosis Sibling Cancer Diabetes mellitus Depression Heart disease Social History Social History Social History: caffeine- coffee 10 tea 1/2 gallon soda 1 can Smoking packs per day: 2 Smoking cigarettes per day: 40.0 Years smoked: 48 Smoking pack-years: 96.00 Smoking status: Never smoker Tobacco type: cigarettes Second hand tobacco smoke exposure: No Alcohol intake: former Substance use: current Substance use type: marijuana Last use: 12/25/24 Do You Feel Safe in your Home?: Yes Lack of Transportation: No Lack of Food: Never True Current Housing: I Have Housing Concerned About Future Housing: No Difficulty Paying Gas/Electric Bills: No Difficulty Paying for Meds: No Currently Unemployed: No Education: Grade School Difficulty w/ Childcare or Family Care: No Living arrangements: with family Occupation/Education: retired Gender identity (if verbalized by the patient): Female Sexual Orientation (if Verbalized by the Patient): Straight or Heterosexual Spiritual care concerns: No Meds Home Medications and Allergies Home Medications ?Medication ?Instructions ?Recorded ?Confirmed ?Type dexamethasone 4 mg tablet 4 mg PO BID 01/15/24 02/16/25 History folic acid 1 mg tablet 1 mg PO DAILY 01/15/24 02/16/25 History ondansetron 8 mg disintegrating 8 mg PO Q8H 01/15/24 02/16/25 History tablet calcium 500 mg tablet 500 mg PO BID 04/08/24 02/16/25 History B12 100 mcg PO DAILY 11/12/24 02/16/25 History Lidocaine-Prilocaine 1 dose topical PRN PRN to numb 11/12/24 02/16/25 History port 30 min before access ferrous sulfate 325 mg (65 mg 325 mg PO DAILY 11/12/24 02/16/25 History iron) tablet (iron) potassium chloride 20 mEq/15 mL 20 meq PO BID 11/12/24 02/16/25 History oral liquid cholestyramine 4 gram oral powder 4 g PO QAM@1000 #30 ea 01/03/25 02/16/25 Rx for suspension in a packet (Prevalite) loperamide 2 mg capsule 2 mg PO TID #20 caps 01/03/25 02/16/25 Rx Saccharomyces boulardii 500 mg PO DAILY 01/06/25 02/16/25 History lansoprazole 30 mg capsule,delayed 30 mg PO DAILY 01/06/25 02/16/25 History release hydrocodone 5 mg-acetaminophen 325 1 tablet PO Q12H PRN pain #60 tabs 02/15/25 02/16/25 Rx mg tablet losartan 50 mg tablet 50 mg PO DAILY #90 tabs 02/15/25 02/16/25 Rx Allergies Allergy/AdvReac Type Severity Reaction Status Date / Time No Known Allergies Allergy Verified 02/15/25 07:49 Vital Signs Vital Signs - 24 hr 02/16/25 14:45 02/16/25 15:00 02/16/25 15:15 Temperature Pulse Rate 86 88 88 Respiratory Rate 21 H 18 13 Blood Pressure 105/80 97/72 L 105/71 Pulse Oximetry 100 100 100 Oxygen Delivery 02/16/25 15:50 02/16/25 18:00 02/16/25 19:43 Temperature 97.2 F L 97.6 F Pulse Rate 87 88 84 Respiratory Rate 18 16 Blood Pressure 104/65 114/69 Pulse Oximetry 92 100 Oxygen Delivery 02/16/25 20:00 02/16/25 20:00 02/16/25 22:00 Temperature Pulse Rate 83 84 Respiratory Rate Blood Pressure Pulse Oximetry Oxygen Delivery Room Air 02/16/25 23:19 02/17/25 00:00 02/17/25 00:00 Temperature 97.6 F Pulse Rate 81 82 Respiratory Rate 16 Blood Pressure 105/57 L Pulse Oximetry 96 Oxygen Delivery Room Air 02/17/25 02:00 02/17/25 04:00 02/17/25 04:00 Temperature Pulse Rate 77 80 Respiratory Rate Blood Pressure Pulse Oximetry Oxygen Delivery Room Air 02/17/25 04:08 02/17/25 06:00 02/17/25 07:17 Temperature 97.6 F 97.6 F Pulse Rate 75 73 74 Respiratory Rate 16 18 Blood Pressure 109/53 L 97/56 L Pulse Oximetry 98 99 Oxygen Delivery 02/17/25 08:00 02/17/25 10:00 02/17/25 11:11 Temperature 97.8 F Pulse Rate 85 77 76 Respiratory Rate 18 Blood Pressure 111/65 Pulse Oximetry 100 Oxygen Delivery Exam 2 Const: General: cooperative and healthy appearing Resp: Effort & Inspection: normal respiratory effort and able to speak in complete sentences Auscultation: clear to auscultation bilaterally Cardio: Rate: regular rate Rhythm: regular rhythm GI: Inspection: normal to inspection GI Palp: No No hepatosplenomegaly present Auscultation: normal bowel sounds Rectal Exam: deferred Skin: General skin exam: normal color Psych: Appearance: grossly normal Mental Status: mental status grossly normal Results Labs 02/17/25 05:11 02/17/25 13:17 Labs: Short CBC 02/17/25 02/17/25 Range/Units 04:00 05:11 WBC 4.8 4.7 (4.5-10.0) K/mm3 Hgb 8.6 L D 8.7 L (12.0-15.0) g/dL Hct 26.5 L 27.0 L (37.0-47.0) % Plt Count 274 285 (150-375) k/mm3 BMP 02/17/25 02/17/25 02/17/25 04:00 05:11 13:17 Sodium 130 L 130 L 130 L Potassium 2.3 L* 2.4 L* 3.4 Chloride 106 107 106 Carbon Dioxide 14 L 11 L 14 L BUN 44 H D 42 H 34 H Creatinine 4.51 H 4.25 H 3.04 H Glucose 89 90 134 H Calcium 6.2 L 6.1 L 6.5 L Cardiac Enzymes 02/17/25 Range/Units 05:11 Total Creatine Kinase 41 (30-135) U/L Liver Function 02/17/25 02/17/25 Range/Units 04:00 05:11 Total Bilirubin < 0.1 L < 0.1 L (0.2-1.3) mg/dL AST 19 20 (14-36) U/L ALT 9 9 (6-35) U/L Alkaline Phosphatase 103 101 (38-126) U/L Albumin 2.6 L 2.6 L (3.5-5.1) g/dL
--- NOTE | 2025-02-17 15:42 | P.PNIM_ITS ---
Progress Note: A&P Assessment and Plan (1) Acute kidney injury superimposed on CKD: Code(s): N17.9 - Acute kidney failure, unspecified; N18.9 - Chronic kidney disease, unspecified Status: Acute Assessment and Plan: From dehydration given diarrhea, hypotensive on presentation - creatinine 9.0, BUN 57, GFR 4 -> 7.74, BUN 61, GFR 5. Previously 1.5, BUN 16, GFR 35 on 02/09/2025. US renal normal kidneys continue IVF Cr 4.25 from 7.74 monitor Nephrology following (2) Hyponatremia: Code(s): E87.1 - Hypo-osmolality and hyponatremia Status: Acute Assessment and Plan: Na 130 conitnue IVF monitor (3) Hypocalcemia: Code(s): E83.51 - Hypocalcemia Status: Acute Assessment and Plan: - Ca 7.8 - initial repletion in the ED with 1G IVP, recheck in AM - monitor (4) Acute UTI: Code(s): N39.0 - Urinary tract infection, site not specified Status: Acute Assessment and Plan: - UA equivocal for infection versus contamination - Continue Rocephin monitor cultures (5) Adenocarcinoma of left lung, stage 4: Code(s): C34.92 - Malignant neoplasm of unspecified part of left bronchus or lung Status: Chronic Assessment and Plan: - stage 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 arrived to significantly hypertensive at 73/50. - hold home medication: Losartan - monitor Plan Diarrhea has been chronic since starting Chemo therapy Suspects Microscopic colitis C diff negative, stool culture pending GI consulted monitor Diet: Renal/dialysis DVT Prophylaxis: SCD Code Status: DNR Subjective Date/time seen: 02/17/25 15:42 Interval history: Comfortable at bedside Review of Systems Review of Systems: All systems reviewed & are unremarkable except as noted in HPI and below Exam Narrative: A/Ox self, time, place, and some situation. Benign exAM. barrera in place. Const: General: comfortable and no acute distress Other: , female, chronically ill-appearing HENMT: Face/Nose/Sinus: Normal nares present Mouth: Yes dry mucous membranes Eyes: General: appearance normal, both eyes and all related structures Sclera: sclerae normal Pupils: Equal, round and reactive pupils present EOM: EOMs intact bilaterally Resp: Effort & Inspection: normal respiratory effort Auscultation: clear to auscultation bilaterally Cardio: Rate: regular rate Rhythm: regular rhythm Other: S1-S2 present without murmur, rub, ectopy GI: Other: Abdomen soft, nondistended, nontender. Normoactive to hyperactive bowel sounds in all quadrants. Skin: General skin exam: normal color and no rashes or lesions noted Wounds: no wounds Neuro: Cranial nerves: Yes Equal, round and reactive pupils present Speech: normal speech Motor exam (neuro): 5/5 motor strength present throughout Sensory Exam: normal sensation Other: A/Ox self, time, place, and some situation. Extrem: General: normal to inspection Psych: Mental Status: mental status grossly normal Affect: normal affect Other: Fair to poor insight and judgment, pleasant Objective Data Vital Signs Vital Signs: Vital Signs - 24 hr 02/16/25 15:50 02/16/25 18:00 02/16/25 19:43 Temperature 97.2 F L 97.6 F Pulse Rate 87 88 84 Respiratory Rate 18 16 Blood Pressure 104/65 114/69 Pulse Oximetry 92 100 Oxygen Delivery 02/16/25 20:00 02/16/25 20:00 02/16/25 22:00 Temperature Pulse Rate 83 84 Respiratory Rate Blood Pressure Pulse Oximetry Oxygen Delivery Room Air 02/16/25 23:19 02/17/25 00:00 02/17/25 00:00 Temperature 97.6 F Pulse Rate 81 82 Respiratory Rate 16 Blood Pressure 105/57 L Pulse Oximetry 96 Oxygen Delivery Room Air 02/17/25 02:00 02/17/25 04:00 02/17/25 04:00 Temperature Pulse Rate 77 80 Respiratory Rate Blood Pressure Pulse Oximetry Oxygen Delivery Room Air 02/17/25 04:08 02/17/25 06:00 02/17/25 07:17 Temperature 97.6 F 97.6 F Pulse Rate 75 73 74 Respiratory Rate 16 18 Blood Pressure 109/53 L 97/56 L Pulse Oximetry 98 99 Oxygen Delivery 02/17/25 08:00 02/17/25 10:00 02/17/25 11:11 Temperature 97.8 F Pulse Rate 85 77 76 Respiratory Rate 18 Blood Pressure 111/65 Pulse Oximetry 100 Oxygen Delivery 02/17/25 12:00 02/17/25 14:00 Temperature Pulse Rate 81 97 Respiratory Rate Blood Pressure Pulse Oximetry Oxygen Delivery Intake/Output Intake/Output: Intake & Output 02/14/25 02/15/25 02/16/25 02/17/25 23:59 23:59 23:59 23:59 Intake Total 4680 3193.8 Output Total 50 751 Balance 4630 2442.8 Meds/Results Medications: Active Medications Generic Name Dose Route Start Last Admin Trade Name Freq PRN Reason Stop Dose Admin Acetaminophen 650 mg 02/16/25 14:42 Acetaminophen 325 Mg Tablet PO Q4H PRN Mild Pain (1-3) or Fever Hydrocodone Bitart/Acetaminophen 1 tab 02/16/25 22:21 Hydrocodone/Acetaminophen (*Crx) 5-325 Mg Tablet PO Q12H PRN Pain Rated 4-6 Calcium Carbonate 500 mg 02/17/25 09:00 02/17/25 08:29 Calcium Carbonate (Oscal) 500 Mg Tablet PO 500 mg BID LISSETTE Administration Cholestyramine Resin 4 gm 02/17/25 18:00 Cholestyramine Light 4 Gm Powd.Pack PO BID@1000,1800 LISSETTE Dexamethasone 4 mg 02/17/25 08:00 02/17/25 08:29 Dexamethasone 4 Mg Tablet PO 4 mg BIDWM LISSETTE Administration Ferrous Sulfate 325 mg 02/17/25 08:00 02/17/25 08:28 Ferrous Sulfate [address] BY MOUTH 325 mg BIDWM LISSETTE Administration Folic Acid 1 mg 02/17/25 09:00 02/17/25 08:28 Folic Acid 1 Mg Tablet PO 1 mg DAILY LISSETTE Administration Sodium Chloride 1,000 mls @ 125 mls/hr 02/16/25 14:45 02/17/25 14:07 Normal Saline Iv IV CONT 125 mls/hr .Q8H LISSETTE Administration Ceftriaxone Sodium 1 gm in 50 mls @ 100 mls/hr 02/17/25 14:00 02/17/25 14:07 Rocephin 1 Gm/Ns 50 Ml IVPB 100 mls/hr Q24H LISSETTE Administration Loperamide HCl 2 mg 02/17/25 00:04 02/17/25 14:50 Loperamide Hcl 2 Mg Capsule PO 2 mg TID PRN Administration Diarrhea Ondansetron HCl 4 mg 02/16/25 14:42 Ondansetron Inj 4 Mg/2 Ml Vial IV PUSH Q4H PRN Nausea Pantoprazole Sodium 40 mg 02/17/25 09:00 02/17/25 08:28 Pantoprazole 40 Mg Tablet PO 40 mg QAM LISSETTE Administration Potassium Chloride 20 meq 02/17/25 09:00 02/17/25 08:29 Potassium Chloride 20 Meq Packet (For Liquid) PO 20 meq BID LISSETTE Administration Radiology Results: ITS Impressions Chest X-Ray 02/16/25 11:50 IMPRESSION: No acute process. Renal Ultrasound 02/17/25 08:54 IMPRESSION: 1. Normal kidneys without hydronephrosis. Labs Labs: Laboratory Results - last 24 hr 02/16/25 02/16/25 02/16/25 19:50 19:50 19:50 WBC RBC Hgb Hct MCV MCH MCHC RDW Plt Count MPV Immature Gran % (Auto) Neut % (Auto) Lymph % (Auto) [place] % (Auto) Eos % (Auto) Baso % (Auto) Lymph # (Auto) [place] # (Auto) Eos # (Auto) Baso # (Auto) Abs Immat Gran (auto) Absolute Neuts (auto) Absolute Nucleated RBC Nucleated RBC % Sodium Potassium Chloride Carbon Dioxide Anion Gap BUN Creatinine Estim Creat Clear Calc Estimated GFR Glucose Calcium Phosphorus Magnesium Total Bilirubin AST ALT Alkaline Phosphatase Total Creatine Kinase Total Protein Albumin TSH (Reflex) Urine Eosinophils None seen U Random Total Protein 380 Cancelled Ur Random Sodium 47 Ur Random Urea 324 Urine Total Volume Cancelled Urine Creatinine 135.8 Cancelled Protein/Creat Ratio 2 2.80 H C. difficile (PCR) Negative 02/17/25 02/17/25 02/17/25 04:00 05:11 13:17 WBC 4.8 4.7 RBC 2.82 L 2.88 L Hgb 8.6 L D 8.7 L Hct 26.5 L 27.0 L MCV 94.0 93.8 MCH 30.5 30.2 MCHC 32.5 32.2 RDW 14.7 H 14.7 H Plt Count 274 285 MPV 8.8 8.7 Immature Gran % (Auto) 4.4 H 4.5 H Neut % (Auto) 51.6 51.9 Lymph % (Auto) 22.8 20.6 [place] % (Auto) 17.2 H 18.5 H Eos % (Auto) 2.5 3.0 Baso % (Auto) 1.5 H 1.5 H Lymph # (Auto) 1.09 0.96 [place] # (Auto) 0.8 H 0.9 H Eos # (Auto) 0.1 0.1 Baso # (Auto) 0.1 0.1 Abs Immat Gran (auto) 0.21 H 0.21 H Absolute Neuts (auto) 2.5 2.4 Absolute Nucleated RBC 0.000 0.000 Nucleated RBC % 0.0 0.0 Sodium 130 L 130 L 130 L Potassium 2.3 L* 2.4 L* 3.4 Chloride 106 107 106 Carbon Dioxide 14 L 11 L 14 L Anion Gap 10 12 10 BUN 44 H D 42 H 34 H Creatinine 4.51 H 4.25 H 3.04 H Estim Creat Clear Calc 9 9 13 Estimated GFR 10 L 10 L 15 L Glucose 89 90 134 H Calcium 6.2 L 6.1 L 6.5 L Phosphorus 4.0 Magnesium 1.5 L 1.5 L Total Bilirubin < 0.1 L < 0.1 L AST 19 20 ALT 9 9 Alkaline Phosphatase 103 101 Total Creatine Kinase 41 Total Protein 5.1 L 5.2 L Albumin 2.6 L 2.6 L TSH (Reflex) 1.060 Urine Eosinophils U Random Total Protein Ur Random Sodium Ur Random Urea Urine Total Volume Urine Creatinine Protein/Creat Ratio 2 C. difficile (PCR) Quality VTE Prophylaxis VTE prophylaxis: mechanical ordered
--- NOTE | 2025-02-17 22:46 | PC.NURSE ---
This patient, Regi Snyder, was transferred to [ 326] on 02/17/25 at 2246. Personal belongings sent with patient. Report given to [ November RN]. Appropriate documentation sent with patient.
--- NOTE | 2025-02-17 23:02 | ADMGEN ---
This patient, Regi Snyder, was admitted to 3 [facility] Surg Room 326-01. Patient/family oriented to hospital policies and general routines including ID bracelet, bed and alarms, visiting hours, pain management, procedures, bathroom and other care routines, personal items, smoking policy, room service/diet, and visiting hours. Information on how to activate the Rapid Response Team has been discussed. Patient/Family are encouraged to report perceived risks to care and to ask questions if they do not understand what they are told or what they should do.
[2025-02-18] VITALS (18 sets, daily range): BP systolic 101–160; BP diastolic 83–102; PULSE 81–126; RESP 17–28; TEMP 35.8–36.4; O2SAT 96–100
[2025-02-18] MEDS: MELATONIN 5 MG TABLET 10 MG PO (05:50)
--- NOTE | 2025-02-18 07:25 | WPDGIPROGNO ---
Progress Note: A&P Assessment and Plan (1) Diarrhea: Qualifiers: Diarrhea type: presumed infectious Qualified Code(s): R19.7 - Diarrhea, unspecified Code(s): R19.7 - Diarrhea, unspecified Status: Acute Assessment and Plan: Patient with chronic diarrhea of unclear etiology. Will send stool studies and watch her response to the recent increase cholestyramine dose from once a day to bid. Subjective Date/time seen: 02/18/25 07:25 Interval history: The patient had a loose bowel movement this morning. She started cholestyramine twice a day yesterday. Objective Data Vital Signs Vital Signs: Vital Signs - 24 hr 02/17/25 08:00 02/17/25 10:00 02/17/25 11:11 Temperature 97.8 F Pulse Rate 85 77 76 Respiratory Rate 18 Blood Pressure 111/65 Pulse Oximetry 100 Oxygen Delivery Fraction of Inspired Oxygen 02/17/25 12:00 02/17/25 14:00 02/17/25 15:49 Temperature 97.8 F Pulse Rate 81 97 71 Respiratory Rate 18 Blood Pressure 113/67 Pulse Oximetry 100 Oxygen Delivery Fraction of Inspired Oxygen 02/17/25 16:00 02/17/25 19:41 02/17/25 20:04 Temperature 97.6 F Pulse Rate 76 75 77 Respiratory Rate 16 20 Blood Pressure 139/77 Pulse Oximetry 99 98 Oxygen Delivery Room Air Fraction of Inspired Oxygen 02/17/25 23:27 02/18/25 06:00 Temperature 97.5 F L 97.5 F L Pulse Rate 87 81 Respiratory Rate 20 20 Blood Pressure 144/86 H 147/92 H Pulse Oximetry 100 100 Oxygen Delivery Fraction of Inspired Oxygen Intake/Output Intake/Output: Intake & Output 02/15/25 02/16/25 02/17/25 02/18/25 23:59 23:59 23:59 23:59 Intake Total 4680 4393.8 300 Output Total 50 2201 Balance 4630 2192.8 300 Meds/Results Medications: Active Medications Generic Name Dose Route Start Last Admin Trade Name Freq PRN Reason Stop Dose Admin Acetaminophen 650 mg 02/16/25 14:42 Acetaminophen 325 Mg Tablet PO Q4H PRN Mild Pain (1-3) or Fever Hydrocodone Bitart/Acetaminophen 1 tab 02/16/25 22:21 Hydrocodone/Acetaminophen (*Crx) 5-325 Mg Tablet PO Q12H PRN Pain Rated 4-6 Calcium Carbonate 500 mg 02/17/25 09:00 02/17/25 17:11 Calcium Carbonate (Oscal) 500 Mg Tablet PO 500 mg BID LISSETTE Administration Cholestyramine Resin 4 gm 02/17/25 18:00 02/17/25 17:11 Cholestyramine Light 4 Gm Powd.Pack PO 4 gm BID@1000,1800 LISSETTE Administration Dexamethasone 4 mg 02/17/25 08:00 02/17/25 17:11 Dexamethasone 4 Mg Tablet PO 4 mg BIDWM LISSETTE Administration Ferrous Sulfate 325 mg 02/17/25 08:00 02/17/25 17:11 Ferrous Sulfate [address] BY MOUTH 325 mg BIDWM LISSETTE Administration Folic Acid 1 mg 02/17/25 09:00 02/17/25 08:28 Folic Acid 1 Mg Tablet PO 1 mg DAILY LISSETTE Administration Heparin Sodium (Porcine) 5,000 units 02/17/25 22:00 02/18/25 05:25 Heparin Sodium 5,000 Units/Ml Vial SUB-Q 5,000 units Q8HR LISSETTE Administration Sodium Chloride 1,000 mls @ 125 mls/hr 02/16/25 14:45 02/17/25 22:55 Normal Saline Iv IV CONT 125 mls/hr .Q8H LISSETTE Administration Ceftriaxone Sodium 1 gm in 50 mls @ 100 mls/hr 02/17/25 14:00 02/17/25 14:07 Rocephin 1 Gm/Ns 50 Ml IVPB 100 mls/hr Q24H LISSETTE Administration Loperamide HCl 2 mg 02/17/25 00:04 02/17/25 23:21 Loperamide Hcl 2 Mg Capsule PO 2 mg TID PRN Administration Diarrhea Melatonin 10 mg 02/18/25 21:00 Melatonin 5 Mg Tablet PO HS LISSETTE Ondansetron HCl 4 mg 02/16/25 14:42 Ondansetron Inj 4 Mg/2 Ml Vial IV PUSH Q4H PRN Nausea Pantoprazole Sodium 40 mg 02/17/25 09:00 02/17/25 08:28 Pantoprazole 40 Mg Tablet PO 40 mg QAM LISSETTE Administration Potassium Chloride 20 meq 02/17/25 09:00 02/17/25 17:11 Potassium Chloride 20 Meq Packet (For Liquid) PO 20 meq BID LISSETTE Administration Radiology Results: ITS Impressions Chest X-Ray 02/16/25 11:50 IMPRESSION: No acute process. Renal Ultrasound 02/17/25 08:54 IMPRESSION: 1. Normal kidneys without hydronephrosis. Labs Labs: Laboratory Results - last 24 hr 02/17/25 13:17 Sodium 130 L Potassium 3.4 Chloride 106 Carbon Dioxide 14 L Anion Gap 10 BUN 34 H Creatinine 3.04 H Estim Creat Clear Calc 13 Estimated GFR 15 L Glucose 134 H Calcium 6.5 L
[2025-02-18 08:28] LABS: Hematocrit 25.4 % (37.0-47.0); Hemoglobin 8.1 g/dL (12.0-15.0); Immature Granulocyte Percent A 10.1 % (0-0.5); Lymphocytes Absolute Auto 0.80 K/mm3 (0.9-3.2); Mean Corpuscular HGB Conc 31.9 g/dl (32-36); Mean Corpuscular Hemoglobin 30.2 pg (26-34); Mean Corpuscular Volume 94.8 fl (80-100); Nucleated Red Blood Cells Absolute Auto 0.000 K/mm3 (0.0-0.012); Nucleated Red Blood Cells Perc 0.0 % (0.0-0.2); Platelet Count Result 241 k/mm3 (150-375); Red Blood Count 2.68 M/mm3 (4.2-5.4); White Blood Count 7.3 K/mm3 (4.5-10.0)
[2025-02-18] MEDS: FOLIC ACID 1 MG TABLET PO (08:39)
[2025-02-18] MEDS: PANTOPRAZOLE 40 MG TABLET PO (08:39)
[2025-02-18] MEDS: FERROUS SULFATE 325 MG TABLET DR BY MOUTH (08:39)
[2025-02-18] MEDS: CALCIUM CARBONATE (OSCAL) 500 MG TABLET PO (08:39)
[2025-02-18] MEDS: POTASSIUM CHLORIDE 20 MEQ PACKET (FOR LIQUID) PO (08:39)
[2025-02-18 08:43] LABS: Alanine Aminotransferase 15 U/L (6-35); Albumin Level 2.9 g/dL (3.5-5.1); Alkaline Phosphatase 142 U/L (38-126); Anion Gap 9 mmol/L (4-12); Aspartate Amino Transferase 35 U/L (14-36); Bilirubin,Total 0.3 mg/dL (0.2-1.3); Blood Urea Nitrogen 24 mg/dL (7-17); Calcium 6.8 mg/dL (8.4-10.2); Carbon Dioxide 13 mmol/L (22-30); Chloride 112 mmol/L (98-107); Estimated CRCL calculation 20 ml/min; Estimated Glomerular Filt Rate 27; Glucose 137 mg/dL (65-110); Magnesium 1.7 mg/dL (1.6-2.3); Potassium 4.0 mmol/L (3.4-5.0); Sodium 134 mmol/L (137-145); Total Protein 5.7 g/dL (6.3-8.2)
[2025-02-18 08:55] LABS: Burr Cells 1+
[2025-02-18 08:56] LABS: Schistocytes None Seen
[2025-02-18] MEDS: CHOLESTYRAMINE LIGHT 4 GM POWD.PACK PO (09:23)
--- NOTE | 2025-02-18 13:20 | P.PNNP_ITS ---
Progress Note: A&P Assessment and Plan (1) Acute kidney injury: Code(s): N17.9 - Acute kidney failure, unspecified Status: Resolved Assessment and Plan: * improvement noted * as noted on admission * multifactorial etiology: * prerenal factors (poor oral intake + ongoing diarrhea) * hemodynamic instability/hypotension * infection/early sepsis(?) * use of ARB prior to admission * other(?) * evaluation noted: * renal ultrasound okay * urine electrolytes prerenal * urine eosinophils negative * CPK okay * moderate proteinuria * continue IVF resuscitation * optimized hemodynamics * holding losartan * follow trend of repeat labs and UOP (2) Stage 3a chronic kidney disease: Code(s): N18.31 - Chronic kidney disease, stage 3a Status: Chronic Assessment and Plan: * baseline creatinine runs ~ 0.9 - 1.2mg/dl * presumably due to hypertension and age-related change (3) Metabolic acidosis: Code(s): E87.20 - Acidosis, unspecified Status: Resolved Assessment and Plan: * due to acute kidney injury/acute renal failure possibly in conjunction from GI losses (diarrhea) * add oral sodium bicarbonate to compensate * follow trend of CO2 (4) Hyponatremia: Code(s): E87.1 - Hypo-osmolality and hyponatremia Status: Acute Assessment and Plan: * has been present as far back as early 2023 * probably due to a combination of SUDHA, volume depletion, and underlying malignancy/cancer * follow trend (5) Diarrhea: Qualifiers: Diarrhea type: presumed infectious Qualified Code(s): R19.7 - Diarrhea, unspecified Code(s): R19.7 - Diarrhea, unspecified Status: Acute Assessment and Plan: * appears to be somewhat of a chronic issue * on Imodium as an outpatient * GI following (6) Adenocarcinoma of left lung, stage 4: Code(s): C34.92 - Malignant neoplasm of unspecified part of left bronchus or lung Status: Chronic Assessment and Plan: * known diagnosis * chemotherapy apparently on hold * follows with Hem/Onc Will continue to follow. L Subjective Date/time seen: 02/18/25 13:20 Interval history: Follow-up for acute kidney injury/acute renal failure on chronic kidney disease. Renal function/creatinine continues to improve with ongoing IVF resuscitation, still having issues with diarrhea and GI recommendations noted; no other acute issues or events overnight or earlier this morning. Exam 2 Narrative: General: elderly but WD/WN female in NAD Heart: normal S1 and S2; no rub Lungs: clear anteriolry Abdomen: soft, nontender, nondistended, positive bowel sounds Extremities: no cyanosis or clubbing; trace edema Skin: warm and intact Objective Data Vital Signs Vital Signs: Vital Signs Temp Pulse Resp BP Pulse Ox O2 Del Method FiO2 02/18/25 12:45 97.5 F L 90 20 130/88 97 02/18/25 11:00 96.5 F L 92 20 128/91 H 96 02/18/25 08:39 Room Air 02/18/25 06:00 97.5 F L 81 20 147/92 H 100 Intake/Output Intake/Output: Intake & Output 02/16/25 02/17/25 02/18/25 02/19/25 23:59 23:59 23:59 23:59 Intake Total 4680 4443.8 667.2 Output Total 50 2201 1600 Balance 4630 2242.8 -932.8 Meds/Results Medications: Active Medications Generic Name Dose Route Start Last Admin Trade Name Freq PRN Reason Stop Dose Admin Acetaminophen 650 mg 02/16/25 14:42 Acetaminophen 325 Mg Tablet PO Q4H PRN Mild Pain (1-3) or Fever Hydrocodone Bitart/Acetaminophen 1 tab 02/16/25 22:21 Hydrocodone/Acetaminophen (*Crx) 5-325 Mg Tablet PO Q12H PRN Pain Rated 4-6 Calcium Carbonate 500 mg 02/17/25 09:00 02/18/25 18:52 Calcium Carbonate (Oscal) 500 Mg Tablet PO Not Given BID [facility] Cholestyramine Resin 4 gm 02/17/25 18:00 02/18/25 20:00 Cholestyramine Light 4 Gm Powd.Pack PO Not Given BID@1000,1800 [facility] Dexamethasone 4 mg 02/17/25 08:00 02/18/25 18:52 Dexamethasone 4 Mg Tablet PO Not Given BIDWM [facility] Ferrous Sulfate 325 mg 02/17/25 08:00 02/18/25 18:54 Ferrous Sulfate [address] BY MOUTH Not Given BIDWM [facility] Folic Acid 1 mg 02/17/25 09:00 02/18/25 08:39 Folic Acid 1 Mg Tablet PO 1 mg DAILY [facility] Administration Heparin Sodium (Beef Lung) 50 units 02/19/25 09:00 Heparin Flush 50 Units/5 Ml Syringe IV PUSH QAM [facility] Heparin Sodium (Beef Lung) 50 units 02/18/25 19:00 Heparin Flush 50 Units/5 Ml Syringe IV PUSH PRN PRN after intermittent infusion Heparin Sodium (Beef Lung) 50 units 02/18/25 19:00 Heparin Flush 50 Units/5 Ml Syringe IV PUSH PRN PRN after blood draws Heparin Sodium (Porcine) 5,000 units 02/17/25 22:00 02/18/25 20:39 Heparin Sodium 5,000 Units/Ml Vial SUB-Q 5,000 units Q8HR [facility] Administration Heparin Sodium (Porcine) 500 units 02/18/25 19:00 Heparin Sodium Lock Flush 500 Units/5 Ml Syringe IV PUSH PRN PRN see comments below Ceftriaxone Sodium 1 gm in 50 mls @ 100 mls/hr 02/17/25 14:00 02/18/25 13:19 Rocephin 1 Gm/Ns 50 Ml IVPB 100 mls/hr Q24H [facility] Administration Sodium Bicarbonate 150 meq/ 1,100 mls @ 150 mls/hr 02/18/25 18:30 02/18/25 20:01 Dextrose IV CONT 150 mls/hr .Q7H20M [facility] Administration Meropenem 1 gm in 100 mls @ 200 mls/hr 02/18/25 19:00 02/18/25 20:31 IVPB Infused Q12H [facility] Infusion Propofol 100 mls @ 9.03 mls/hr 02/18/25 18:45 02/18/25 22:00 Diprivan IV CONT 35 mcg/kg/min .Q11H5M [facility] 12.64 mls/hr Titration Protocol 25 MCG/KG/MIN Loperamide HCl 2 mg 02/17/25 00:04 02/18/25 15:38 Loperamide Hcl 2 Mg Capsule PO 2 mg TID PRN Administration Diarrhea Melatonin 10 mg 02/18/25 21:00 Melatonin 5 Mg Tablet PO HS [facility] Morphine Sulfate 2 mg 02/18/25 15:51 02/18/25 15:54 Morphine Sulfate (*Crx) 2 Mg/Ml Inj IV PUSH 2 mg Q4H PRN Administration Pain Rated 7-10 Multi-Ingred Cream/Lotion/Oil/Oint 1 applic 02/18/25 21:00 02/18/25 20:39 Mineral Oil/White Petrolatum Ointment EACH EYE 1 applic Q12HR [facility] Administration Nitroglycerin 0.4 mg 02/18/25 16:44 02/18/25 17:15 Nitroglycerin Sl 0.4 Mg Tablet SUBLINGUAL 0.4 mg Q5MIN PRN Administration Chest Pain Ondansetron HCl 4 mg 02/16/25 14:42 Ondansetron Inj 4 Mg/2 Ml Vial IV PUSH Q4H PRN Nausea Pantoprazole Sodium 40 mg 02/17/25 09:00 02/18/25 08:39 Pantoprazole 40 Mg Tablet PO 40 mg QAM [facility] Administration Potassium Chloride 20 meq 02/17/25 09:00 02/18/25 18:54 Potassium Chloride 20 Meq Packet (For Liquid) PO Not Given BID [facility] Sodium Chloride 10 ml 02/18/25 22:00 02/18/25 20:40 Central Line Flush IV PUSH 10 ml Q8HR [facility] Administration Vancomycin HCl 1 each 02/18/25 19:15 Vancomycin For Acute Kidney Injury IVPB PRN PRN Vancomycin Protocol Radiology Results: ITS Impressions Renal Ultrasound 02/17/25 08:54 IMPRESSION: 1. Normal kidneys without hydronephrosis. Labs Labs: Laboratory Tests 02/18/25 08:10 02/18/25 08:10 Calcium 6.8 L Magnesium 1.7 Total Bilirubin 0.3 AST 35 ALT 15 Alkaline Phosphatase 142 H Total Protein 5.7 L Albumin 2.9 L Microbiology 02/16/25 19:50 Stool Escherichia coli Shiga Toxins - Final 02/16/25 19:50 Stool Campylobacter Antigen Assay - Final
[2025-02-18] MEDS: LORazepam (*CRX) 0.5 MG TABLET PO (15:33)
[2025-02-18] MEDS: LOPERAMIDE HCL 2 MG CAPSULE PO (15:38)
--- NOTE | 2025-02-18 15:41 | PM.IMPN ---
Progress Note: A&P Assessment and Plan (1) Acute kidney injury superimposed on CKD: Code(s): N17.9 - Acute kidney failure, unspecified; N18.9 - Chronic kidney disease, unspecified Status: Acute Assessment and Plan: From dehydration given diarrhea, hypotensive on presentation - creatinine 9.0, BUN 57, GFR 4 -> 7.74, BUN 61, GFR 5. Previously 1.5, BUN 16, GFR 35 on 02/09/2025. US renal normal kidneys continue IVF Cr 1.87 from 7.74 monitor Nephrology following (2) Hyponatremia: Code(s): E87.1 - Hypo-osmolality and hyponatremia Status: Acute Assessment and Plan: Na 134 conitnue IVF monitor (3) Hypocalcemia: Code(s): E83.51 - Hypocalcemia Status: Acute Assessment and Plan: - Ca 7.8 replaced and monitor - monitor (4) Acute UTI: Code(s): N39.0 - Urinary tract infection, site not specified Status: Acute Assessment and Plan: - UA equivocal for infection versus contamination - Continue Rocephin monitor cultures (5) Adenocarcinoma of left lung, stage 4: Code(s): C34.92 - Malignant neoplasm of unspecified part of left bronchus or lung Status: Chronic Assessment and Plan: - stage 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 arrived to significantly hypertensive at 73/50. - hold home medication: Losartan - monitor Plan Diarrhea has been chronic since starting Chemo therapy Suspects Microscopic colitis C diff negative, stool culture pending GI following, increased Cholestyramine monitor Patient and family has decided to transition to hospice, will discharge to hospice care tomorrow Diet: Renal/dialysis DVT Prophylaxis: SCD Code Status: DNR Subjective Date/time seen: 02/18/25 15:41 Interval history: Comfortable at bedside . Patient goign on hospice tomorrow Review of Systems Review of Systems: All systems reviewed & are unremarkable except as noted in HPI and below Exam Narrative: A/Ox self, time, place, and some situation. Benign exAM. barrera in place. Const: General: comfortable and no acute distress Other: , female, chronically ill-appearing HENMT: Face/Nose/Sinus: Normal nares present Mouth: Yes dry mucous membranes Eyes: General: appearance normal, both eyes and all related structures Sclera: sclerae normal Pupils: Equal, round and reactive pupils present EOM: EOMs intact bilaterally Resp: Effort & Inspection: normal respiratory effort Auscultation: clear to auscultation bilaterally Cardio: Rate: regular rate Rhythm: regular rhythm Other: S1-S2 present without murmur, rub, ectopy GI: Other: Abdomen soft, nondistended, nontender. Normoactive to hyperactive bowel sounds in all quadrants. Skin: General skin exam: normal color and no rashes or lesions noted Wounds: no wounds Neuro: Cranial nerves: Yes Equal, round and reactive pupils present Speech: normal speech Motor exam (neuro): 5/5 motor strength present throughout Sensory Exam: normal sensation Other: A/Ox self, time, place, and some situation. Extrem: General: normal to inspection Psych: Mental Status: mental status grossly normal Affect: normal affect Other: Fair to poor insight and judgment, pleasant Objective Data Vital Signs Vital Signs: Vital Signs - 24 hr 02/17/25 15:49 02/17/25 16:00 02/17/25 19:41 Temperature 97.8 F 97.6 F Pulse Rate 71 76 75 Respiratory Rate 18 16 Blood Pressure 113/67 139/77 Pulse Oximetry 100 99 Oxygen Delivery Fraction of Inspired Oxygen 02/17/25 20:04 02/17/25 23:27 02/18/25 06:00 Temperature 97.5 F L 97.5 F L Pulse Rate 77 87 81 Respiratory Rate 20 20 20 Blood Pressure 144/86 H 147/92 H Pulse Oximetry 98 100 100 Oxygen Delivery Room Air Fraction of Inspired Oxygen 21 02/18/25 08:39 02/18/25 14:00 Temperature 96.5 F L Pulse Rate 104 H Respiratory Rate 20 Blood Pressure 128/91 H Pulse Oximetry 96 Oxygen Delivery Room Air Fraction of Inspired Oxygen Intake/Output Intake/Output: Intake & Output 02/15/25 02/16/25 02/17/25 02/18/25 23:59 23:59 23:59 23:59 Intake Total 4680 4443.8 536 Output Total 50 2201 300 Balance 4630 2242.8 236 Meds/Results Medications: Active Medications Generic Name Dose Route Start Last Admin Trade Name Freq PRN Reason Stop Dose Admin Acetaminophen 650 mg 02/16/25 14:42 Acetaminophen 325 Mg Tablet PO Q4H PRN Mild Pain (1-3) or Fever Hydrocodone Bitart/Acetaminophen 1 tab 02/16/25 22:21 Hydrocodone/Acetaminophen (*Crx) 5-325 Mg Tablet PO Q12H PRN Pain Rated 4-6 Calcium Carbonate 500 mg 02/17/25 09:00 02/18/25 08:39 Calcium Carbonate (Oscal) 500 Mg Tablet PO 500 mg BID [facility] Administration Cholestyramine Resin 4 gm 02/17/25 18:00 02/18/25 09:23 Cholestyramine Light 4 Gm Powd.Pack PO 4 gm BID@1000,1800 [facility] Administration Dexamethasone 4 mg 02/17/25 08:00 02/18/25 09:22 Dexamethasone 4 Mg Tablet PO 4 mg BIDWM [facility] Administration Ferrous Sulfate 325 mg 02/17/25 08:00 02/18/25 08:39 Ferrous Sulfate [address] BY MOUTH 325 mg BIDWM [facility] Administration Folic Acid 1 mg 02/17/25 09:00 02/18/25 08:39 Folic Acid 1 Mg Tablet PO 1 mg DAILY [facility] Administration Heparin Sodium (Porcine) 5,000 units 02/17/25 22:00 02/18/25 13:21 Heparin Sodium 5,000 Units/Ml Vial SUB-Q 5,000 units Q8HR [facility] Administration Sodium Chloride 1,000 mls @ 125 mls/hr 02/16/25 14:45 02/17/25 22:55 Normal Saline Iv IV CONT 125 mls/hr .Q8H [facility] Administration Ceftriaxone Sodium 1 gm in 50 mls @ 100 mls/hr 02/17/25 14:00 02/18/25 13:19 Rocephin 1 Gm/Ns 50 Ml IVPB 100 mls/hr Q24H [facility] Administration Loperamide HCl 2 mg 02/17/25 00:04 02/18/25 15:38 Loperamide Hcl 2 Mg Capsule PO 2 mg TID PRN Administration Diarrhea Melatonin 10 mg 02/18/25 21:00 Melatonin 5 Mg Tablet PO HS [facility] Ondansetron HCl 4 mg 02/16/25 14:42 Ondansetron Inj 4 Mg/2 Ml Vial IV PUSH Q4H PRN Nausea Pantoprazole Sodium 40 mg 02/17/25 09:00 02/18/25 08:39 Pantoprazole 40 Mg Tablet PO 40 mg QAM [facility] Administration Potassium Chloride 20 meq 02/17/25 09:00 02/18/25 08:39 Potassium Chloride 20 Meq Packet (For Liquid) PO 20 meq BID [facility] Administration Radiology Results: ITS Impressions Chest X-Ray 02/16/25 11:50 IMPRESSION: No acute process. Renal Ultrasound 02/17/25 08:54 IMPRESSION: 1. Normal kidneys without hydronephrosis. Labs Labs: Laboratory Results - last 24 hr 02/18/25 08:10 WBC 7.3 RBC 2.68 L Hgb 8.1 L Hct 25.4 L MCV 94.8 MCH 30.2 MCHC 31.9 L RDW 15.0 H Plt Count 241 MPV 9.0 Immature Gran % (Auto) 10.1 H Neut % (Auto) 69.7 Lymph % (Auto) 11.0 L [place] % (Auto) 8.6 H Eos % (Auto) 0.1 Baso % (Auto) 0.5 Lymph # (Auto) 0.80 L [place] # (Auto) 0.6 Eos # (Auto) 0.0 Baso # (Auto) 0.0 Abs Immat Gran (auto) 0.74 H Absolute Neuts (auto) 5.1 Absolute Nucleated RBC 0.000 Band Neutrophils % Not Reportable Nucleated RBC % 0.0 Platelet Estimate Adequate [place] Cells 1+ Schistocytes None seen Sodium 134 L Potassium 4.0 Chloride 112 H Carbon Dioxide 13 L Anion Gap 9 BUN 24 H D Creatinine 1.87 H Estim Creat Clear Calc 20 Estimated GFR 27 L Glucose 137 H Calcium 6.8 L Magnesium 1.7 Total Bilirubin 0.3 AST 35 ALT 15 Alkaline Phosphatase 142 H Total Protein 5.7 L Albumin 2.9 L Quality VTE Prophylaxis VTE prophylaxis: mechanical ordered
--- NOTE | 2025-02-18 15:50 | ECG_ITS ---
Test Date: 2025-02-18 15:59:26 Measurements Intervals [place] Rate: 125 P: 74 AK: 140 QRS: 48 QRSD: 75 T: 104 QT: 336 QTc: 484 Interpretive Statements SINUS TACHYCARDIA LOW QRS VOLTAGE IN PRECORDIAL LEADS ST-T WAVE ABNORMALITY IN LAT/HIGH LAT LEADS- CONSIDER ISCHEMIA BASELINE ARTIFACT- I, II, III, AVR, AVL, AVF, V1-V6 ABNORMAL ECG Compared to ECG 02/16/2025 11:06:15 HEART RATE HAS INCREASED POSSIBLE ISCHEMIA NOW PRESENT Electronically Signed On 02-18-2025 16:08:39 CDT by Erwin Daugherty D.O.
[2025-02-18] MEDS: MORPHINE SULFATE (*CRX) 2 MG/ML INJ IV PUSH ×2 (15:54→17:28)
[2025-02-18] MEDS: NITROGLYCERIN SL 0.4 MG TABLET SUBLINGUAL (17:15)
[2025-02-18] MEDS: NITROGLYCERIN OINTMENT 1 INCH DOSE 2 INCH TRANSDERM (17:28)
[2025-02-18] MEDS: FUROSEMIDE INJ 40 MG/4 ML VIAL IV PUSH (17:35)
--- NOTE | 2025-02-18 17:41 | ECG_ITS ---
Test Date: 2025-02-18 17:52:55 Measurements Intervals [place] Rate: 122 P: 71 AK: 138 QRS: 65 QRSD: 98 T: 195 QT: 325 QTc: 464 Interpretive Statements SINUS TACHYCARDIA T WAVE ABNORMALITY IN ANTERIOR LEADS- CONSIDER ISCHEMIA BASELINE ARTIFACT- I, II, III, AVR, AVL, AVF, V1-V6 ABNORMAL ECG Compared to ECG 02/18/2025 15:59:26 No significant changes Electronically Signed On 02-18-2025 20:36:24 CDT by Erwin Daugherty D.O.
[2025-02-18] MEDS: IPRATROPIUM 0.5 MG/ALBUTEROL SULFATE 2.5 MG AMPUL.NEB 3 ML INHALATION (17:46)
[2025-02-18 17:47] LABS: Alveolar/Arterial O2 Gradient 113.0 mmHg; Fractional Inspired Oxygen 28 %; HCO3 ABG 7.8 mEq/l (22.0-26.0); Oxygen Content ABG 12.2 %vol (16.0-22.0); PO2 ABG 58.8 mmHg (80.0-100.0); PO2 FiO2 Ratio Arterial Blood 2.10 %
[2025-02-18 17:52] LABS: PCO2 ABG 23.6 mmHg (35.0-45.0)
[2025-02-18 17:53] LABS: Modified Allen's Test Pass; Oxygen Saturation ABG 82.6 % (95.0-100.0); Site Drawn RIGHT BRACHIAL
[2025-02-18 17:54] LABS: Liters per Minute 2.0 LPM
--- NOTE | 2025-02-18 18:04 | PCRCNOTE ---
ABG done more than 30 minutes post it being ordered. RT went to do it and pt was going to the bathroom and the nurse said that they were taking the pt down to radiology. Nurse called back and said they wanted it now and radiology was going to come to bedside to do xray. RN's placing IV's as well.
[2025-02-18 18:12] LABS: Troponin I 1.840 ng/mL (0.000-0.034)
[2025-02-18] MEDS: SUCCINYLCHOLINE CHLORIDE 20 MG/ML 10 ML VIAL 100 MG IV PUSH (18:24)
[2025-02-18] MEDS: MIDAZOLAM HCL (*CRX) 2 MG/2 ML VIAL 4 MG IV PUSH (18:24)
--- NOTE | 2025-02-18 18:25 | PM.EVENT ---
Event Note Event Note Event Note: Was called to see patient this afternoon for chest pain and SOB. At bedside patient was dyspneic, and complained of substernal chest pain. BP 160/102, HR 126 and RR 28 Mild edema in the lower extremities EKG was low voltage but no acute ST-T changes CXR appeared to be pulm edema abg 7.136/23.6/58.8, lactic acid 4.4. Initially, patient was DNR and i spoke with Rima STEVENS who is her granddaughter, on the phone she asked that we wait for her to arrive the hospital. When she arrived at about 6pm she discussed with patient and decided to change the code status to Full code. I discussed that given her lung cancer with brain mets patient may not make make it from intubation. She firmly stated that patient is full code. Thus Dr Jimenez from ER was called to intubate patient. Assessment Acute hypoxemic respiratory failure Metabolic acidosis lactic acidosis Pulm edema vs Pneumonia Plan Stat CT head, CT AP and Chest Blood and sputum culture Started Meropenem and Vancomycin Started on Bicarb Infusion, due to mild extremities edema and pulm edema appearing chest area , i will titrate fluids with clinicial course Intubate patient and start mechanical ventilation, Sedation with propofol Discussed with Dr Daley, folder gluer operator Patient transferred to ICU for close monitoring.
[2025-02-18] MEDS: PROPOFOL IV EMULSION 100 ML 1.81 MG IV CONT (18:39)
[2025-02-18] MEDS: SODIUM BICARBONATE 8.4% 50 MEQ/50 ML SYRINGE IV PUSH (18:58)
[2025-02-18 19:51] LABS: Alveolar/Arterial O2 Gradient 429.7 mmHg; Carboxyhemoglobin 0.3 % THb (0-2.0); Fractional Inspired Oxygen 100 %; HCO3 ABG 12.3 mEq/l (22.0-26.0); Methemoglobin ABG 0.3 %THb (0-1.5); Oxygen Content ABG 15.6 %vol (16.0-22.0); Oxygen Saturation ABG 99.5 % (95.0-100.0); PCO2 ABG 25.8 mmHg (35.0-45.0); PO2 ABG 257.5 mmHg (80.0-100.0); PO2 FiO2 Ratio Arterial Blood 2.58 %; Reduced Hemoglobin 0.6 %THb (0-5.0)
[2025-02-18 19:54] LABS: Triglycerides 136 mg/dL (<150)
[2025-02-18 19:55] LABS: Modified Allen's Test Pass; Site Drawn RIGHT RADIAL
[2025-02-18 19:56] LABS: Arterial Blood Gas Tidal Volume 400 ml; Arterial Blood Gas Ventilator rate 12 /MIN
[2025-02-18] MEDS: MEROPENEM 1 GM/NS 100 ML BAG IVPB (20:01)
[2025-02-18] MEDS: SODIUM BICARBONATE 8.4% 150 MEQ in DEXTROSE 5% 1,000 ML 950 ML IV CONT (20:01)
[2025-02-18] MEDS: VANCOMYCIN 1,000 MG/NS 250 ML 1,000 MG/250 ML BAG 250 MG IVPB (20:37)
[2025-02-18] MEDS: MINERAL OIL/WHITE PETROLATUM OINTMENT 1 APPLIC EACH EYE (20:39)
[2025-02-18] MEDS: CENTRAL LINE FLUSH 10 ML IV PUSH (20:40)
[2025-02-19] VITALS (54 sets, daily range): BP systolic 85–100; BP diastolic 58–75; PULSE 68–101; RESP 12–26; TEMP 36.2–37.2; O2SAT 96–100; BMI 25.1
--- NOTE | 2025-02-19 | ECHO_ITS ---
Patient Info Name: Regi Snyder Age: 64 years : 1960 Gender: Female Ht: 61 in Wt: 133 lbs BSA: 1.62 m2 HR: 90 bpm BP: 85 / 66 mmHg Technical Quality: Good Exam Date: 02/19/2025 11:07 AM Patient Status: I Admit Date: 02/17/2025 Exam Type: CA echo dop color flow w con Complete two-dimensional, color flow and Doppler transthoracic echocardiogram is performed with contrast to opacify the left ventricle and to improve the deliniation of the left ventricle endocardial borders. Staff Referring Physician: Andrés Ruano MD Twister Doffer: Abigail Parker Attending Provider: Orquidea Pickett Contrast/Agitated Saline Contrast/Ag. Saline: Definity Amount: 2.00 ml Summary 1. Left ventricular chamber dimension is moderately enlarged. 2. Left ventricular systolic function is severely globally reduced, estimated at 20-25. The small basal segments appear to be spared which could suggest Takotsubo cardiomyopathy. 3. The left ventricular diastolic function is grade I diastolic dysfunction. 4. E/e' 14 is mildly elevated. 5. There is trace aortic valve regurgitation. 6. There is mild mitral valve regurgitation. 7. There is mild tricuspid valve regurgitation. 8. Mild pulmonary hypertension, estimated pulmonary arterial systolic pressure is 43 mmHg. 9. Dilated inferior vena cava with >50% collapse upon inspiration consistent with elevated right atrial pressure, 10 mmHg. Left Ventricle E/e' 14 is mildly elevated. Left ventricular chamber dimension is moderately enlarged. Left ventricular systolic function is severely globally reduced, estimated at 20-25. The small basal segments appear to be spared which could suggest Takotsubo cardiomyopathy. The left ventricular diastolic function is grade I diastolic dysfunction. Right Ventricle Right ventricular chamber dimension is normal. Right ventricular systolic function is normal and with normal TAPSE 1.8 cm. Left Atria Left atrial chamber dimension is normal. Right Atria Right atrial chamber dimension is normal. Aortic Valve The aortic valve is not well visualized. There is no aortic valve stenosis. There is trace aortic valve regurgitation. Pulmonic Valve There is no pulmonic regurgitation. Mitral Valve There is no mitral valve stenosis. There is mild mitral valve regurgitation. Tricuspid Valve There is mild tricuspid valve regurgitation. Mild pulmonary hypertension, estimated pulmonary arterial systolic pressure is 43 mmHg. Pericardium/Pleural There is no pericardial effusion. Inferior Vena Cava Dilated inferior vena cava with >50% collapse upon inspiration consistent with elevated right atrial pressure, 10 mmHg. Aorta The aortic root size at the sinus of Valsalva is normal. Left Ventricular Outflow Tract Name Value Normal LVOT 2D LVOT Diameter 1.8 cm LVOT Doppler LVOT Peak Velocity 84 cm/s LVOT Peak Gradient 3 mmHg LVOT Mean Gradient 2 mmHg LVOT VTI 18 cm LVOT Stroke Volume 46 ml LVOT CO 4.4 l/min LVOT CI 2.7 l/min/m2 Pulmonic Valve Name Value Normal RVOT Doppler RVOT Peak Velocity 55 cm/s RVOT Peak Gradient 1 mmHg PV Doppler PV Peak Velocity 72 cm/s PV Peak Gradient 2 mmHg Mitral Valve Name Value Normal MV Doppler MV Peak Gradient 4 mmHg MV Mean Gradient 2 mmHg MV Area (Cont Eq VTI) 1.7 cm2 MV Diastolic Function MV E Peak Velocity 79 cm/s MV A Peak Velocity 83 cm/s MV E/A 0.9 MV Decel Time (PW) 151 ms MV Annular TDI MV E/e' (Septal) 13.9 MV E/e' (Lateral) 14.1 MV E/e' (Average) 14.0 Tricuspid Valve Name Value Normal TV Regurgitation Doppler TR Peak Velocity 286 cm/s TR Peak Gradient 33 mmHg Estimated PAP/RSVP RA Pressure 10 mmHg <=5 PA Systolic Pressure 43 mmHg <36 RV Systolic Pressure 43 mmHg <36 TV Annular TDI TV Lateral Nikki s' Velocity 10.4 cm/s >=9.5 Aortic Valve Name Value Normal AV Doppler AV Peak Velocity 169 cm/s AV Peak Gradient 11 mmHg AV Area (Cont Eq Howard) 1.3 cm2 AV DI (Howard) 0.50 AV Regurgitation 2D LVOT Area 2.6 cm2 Ventricles Name Value Normal LV Dimensions 2D/MM LVOT Diameter 1.8 cm LV Fractional Shortening/Ejection Fraction 2D/MM LV Diastolic Volume (4C MOD) 81 ml LV EF (4C MOD) 25 % LV Diastolic Volume (2C MOD) 83 ml LV EF (2C MOD) 32 % LV Diastolic Volume (BP MOD) 81 ml 46-106 LV Diastolic Volume Index (BP MOD) 50 ml/m2 29-61 LV Systolic Volume (BP MOD) 59 ml 14-42 LV Systolic Volume Index (BP MOD) 36 ml/m2 8-24 LV EF (BP MOD) 28 % 54-74 LV Diastolic Length (4C) 7.4 cm LV Systolic Length (4C) 6.6 cm LV Stroke Volume (4C MOD) 20 ml Atria Name Value Normal LA Dimensions LA Volume (4C A-L) 16 ml LA Volume (BP A-L) 21 ml RA Dimensions RA Systolic Major [place] Length (4C) 3.7 cm 2.2-2.8 RA Area (4C) 8.8 cm2 <=18.0 Report Signatures
[2025-02-19 00:41] LABS: MRSA (PCR). NOT DETECTED (NOT DETECTE)
[2025-02-19] MEDS: PROPOFOL IV EMULSION 100 ML 12.64 MG IV CONT (01:08)
[2025-02-19] MEDS: SODIUM BICARBONATE 8.4% 150 MEQ in DEXTROSE 5% 1,000 ML 950 ML IV CONT (02:55)
[2025-02-19 05:01] LABS: Alveolar/Arterial O2 Gradient 123.2 mmHg; Carboxyhemoglobin 0.3 % THb (0-2.0); Fractional Inspired Oxygen 35 %; HCO3 ABG 21.2 mEq/l (22.0-26.0); Methemoglobin ABG 0.3 %THb (0-1.5); Oxygen Content ABG 11.9 %vol (16.0-22.0); Oxygen Saturation ABG 97.9 % (95.0-100.0); PCO2 ABG 27.5 mmHg (35.0-45.0); PO2 ABG 94.4 mmHg (80.0-100.0); PO2 FiO2 Ratio Arterial Blood 2.70 %; Reduced Hemoglobin 2.7 %THb (0-5.0)
[2025-02-19 05:28] LABS: Arterial Blood Gas Ventilator rate 12 /MIN; Modified Allen's Test Pass; Site Drawn RIGHT RADIAL
[2025-02-19 05:29] LABS: Arterial Blood Gas Tidal Volume 400 ml
[2025-02-19] MEDS: MEROPENEM 1 GM/NS 100 ML BAG IVPB ×2 (05:35→18:01)
[2025-02-19] MEDS: CENTRAL LINE FLUSH 10 ML IV PUSH ×5 (05:35→21:39)
[2025-02-19 05:37] LABS: Hematocrit 23.7 % (37.0-47.0); Hemoglobin 7.8 g/dL (12.0-15.0); Mean Corpuscular HGB Conc 32.9 g/dl (32-36); Mean Corpuscular Hemoglobin 30.4 pg (26-34); Mean Corpuscular Volume 92.2 fl (80-100); Platelet Count Result 210 k/mm3 (150-375); Red Blood Count 2.57 M/mm3 (4.2-5.4); White Blood Count 15.6 K/mm3 (4.5-10.0)
[2025-02-19 05:56] LABS: Estimated CRCL calculation 26 ml/min; Estimated Glomerular Filt Rate 36
[2025-02-19 06:47] LABS: Alanine Aminotransferase 19 U/L (6-35); Albumin Level 2.7 g/dL (3.5-5.1); Alkaline Phosphatase 149 U/L (38-126); Anion Gap 12 mmol/L (4-12); Aspartate Amino Transferase 36 U/L (14-36); Bilirubin,Total < 0.1 mg/dL (0.2-1.3); Blood Urea Nitrogen 19 mg/dL (7-17); Calcium 6.4 mg/dL (8.4-10.2); Carbon Dioxide 20 mmol/L (22-30); Chloride 102 mmol/L (98-107); Estimated CRCL calculation 25 ml/min; Estimated Glomerular Filt Rate 35; Glucose 157 mg/dL (65-110); Magnesium 1.3 mg/dL (1.6-2.3); Potassium 2.5 mmol/L (3.4-5.0); Sodium 134 mmol/L (137-145); Total Protein 5.0 g/dL (6.3-8.2)
[2025-02-19] MEDS: MAGNESIUM SULFATE 3GM/D5W100ML 3 GM/100 ML BAG IVPB (08:25)
--- NOTE | 2025-02-19 09:06 | P.CONIN_ITS ---
Assessment and Plan Assessment and plan (1) Hypoxic respiratory failure: Code(s): J96.91 - Respiratory failure, unspecified with hypoxia Status: Acute Assessment and Plan: Acute hypoxic respiratory failure: Likely related to pneumonia versus moderate pleural effusions bilaterally -hypoxic respiratory failure on ABG down 02/18, as patient was tachypneic, short of breath, decreased O2 sats. PH was 7.13/23/58/7.8/82% -02/18: Intubated in the ICU by ER physician -currently on CMV mode of ventilation, peep of 5, 35% FiO2. -ABGs and chest x-ray/CT chest reviewed: Ventilator adjusted, decrease tidal volume, decreased rate -added DuoNebs -started on vancomycin and meropenem, discontinue ceftriaxone -02/19: Blood cultures obtained and pending -02/18: Sputum cultures obtained and pending -sedated with propofol infusion, maintain RASS of 0 to -1 (2) Pneumonia: Code(s): J18.9 - Pneumonia, unspecified organism Status: Acute Assessment and Plan: As above (3) Adenocarcinoma of left lung, stage 4: Code(s): C34.92 - Malignant neoplasm of unspecified part of left bronchus or lung Status: Chronic Assessment and Plan: Follows with Dr. Acosta (oncologist) patient has been on Keytruda -Mets to bone and brain (4) Acute kidney injury superimposed on CKD: Code(s): N17.9 - Acute kidney failure, unspecified; N18.9 - Chronic kidney disease, unspecified Status: Acute Assessment and Plan: Patient presented with acute kidney injury on 02/16/2025 likely secondary to diarrhea. Creatinine on admission was 9.00 -adequately fluid-resuscitated -non-anion gap metabolic acidosis secondary to diarrhea -creatinine is 1.49 this morning -urine output has been adequate -continue to monitor renal function, electrolytes and urine out (5) Diarrhea: Qualifiers: Diarrhea type: presumed infectious Qualified Code(s): R19.7 - Diarrhea, unspecified Code(s): R19.7 - Diarrhea, unspecified Status: Acute Assessment and Plan: GI following the patient for diarrhea -02/16: C diff was negative -patient started on cholestyramine -diarrhea has improved (6) Electrolyte abnormality: Code(s): E87.8 - Other disorders of electrolyte and fluid balance, not elsewhere classified Status: Acute Assessment and Plan: Will will replace potassium, magnesium, phosphorus (7) Anemia: Code(s): D64.9 - Anemia, unspecified Status: Acute Assessment and Plan: Patient has dropped hemoglobin from 12.8 on 02/16/2025 to 7.8 this morning -increase PPI to q.12 hours -GI following the patient -history of iron deficiency anemia on ferrous sulfate, will continue Plan DVT prophylaxis: Heparin subQ Stress ulcer prophylaxis: Protonix IV q.12 hours Nutrition: Will start tube feeds Code Status: Full code Critical Care Time Spent: 52 minutes Discussed with patient's family at bedside and in rounds and updated them with patient's condition and plan of care. I answered all the question. She is a full code for 72 hours, the son is going to talk to the par for transactional attorney who is patient's niece and will get back to me. OFF NOTE: Patient was supposed to go on hospice today on 02/19/2025 but DNR was rescinded on 02/18/2025 prior to intubation Due to a high probability of clinically significant, life threatening deterioration, the patient required my highest level of preparedness to intervene emergently and I personally spent this critical care time directly and personally managing the patient. This critical care time included obtaining a history; examining the patient; pulse oximetry; ordering and review of studies; arranging urgent treatment with development of a management plan; evaluation of patient's response to treatment; frequent reassessment; and discussions with other providers. It was exclusive of separately billable procedures and treating other patients and teaching time. Please see Assessment and Plan section and the rest of the note for further information on patient assessment and treatment This dictation may have been done utilizing a voice recognition system. Attempts have been made to correct errors. However, there may be uncorrected grammatical, spelling, and recognitions errors present. 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 Creatinine was 9.0, BUN 57 with a GFR of 4. She also complained of dizziness, weakness and possible confusion. Also complains of chronic diarrhea for 3 weeks prior to admission. She was recently admitted to the hospital at [facility] from 12/29/2024 to 01/03/2025 for diarrhea. Patient was fluid resuscitated with improvement in her creatinine and renal function, GI has been consulted, patient on cholestyramine for her diarrhea. On 02/18/2025: Patient was found to be hypoxic, more confused, tachypneic. ABG showed a pH of 7.13, pCO2 of 23, PO2 of 58 on 2 L nasal cannula, patient was transferred to the ICU, intubated. Sedated with propofol infusion, started on meropenem and vancomycin, remains on ceftriaxone Patient seen and examined this morning, remains intubated on CMV mode of ventilation, peep of 5, 35% FiO2, sedated with propofol infusion, blood pressures were slightly low, I have asked the bedside RN to decrease the propofol. Patient tries to open her eyes, follows simple commands in all extremities. Urine output has been adequate, afebrile. 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 Gallstone Asthma Surgical History Surgical History History of cholecystectomy History of appendectomy H/O hysterectomy for benign disease Family History Family History Father Alcoholism Mother Cirrhosis Sibling Cancer Diabetes mellitus Depression Heart disease Social History Social History Social History: caffeine- coffee 10 tea 1/2 gallon soda 1 can Smoking packs per day: 2 Smoking cigarettes per day: 40.0 Years smoked: 48 Smoking pack-years: 96.00 Smoking status: Never smoker Tobacco type: cigarettes Second hand tobacco smoke exposure: No Alcohol intake: former Substance use: current Substance use type: marijuana Last use: 12/25/24 Do You Feel Safe in your Home?: Yes Lack of Transportation: No Lack of Food: Never True Current Housing: I Have Housing Concerned About Future Housing: No Difficulty Paying Gas/Electric Bills: No Difficulty Paying for Meds: No Currently Unemployed: No Education: Grade School Difficulty w/ Childcare or Family Care: No Living arrangements: with family Occupation/Education: retired Gender identity (if verbalized by the patient): Female Sexual Orientation (if Verbalized by the Patient): Straight or Heterosexual Spiritual care concerns: No Meds Home Medications and Allergies Home Medications ?Medication ?Instructions ?Recorded ?Confirmed ?Type dexamethasone 4 mg tablet 4 mg PO BID 01/15/24 02/16/25 History folic acid 1 mg tablet 1 mg PO DAILY 01/15/24 02/16/25 History ondansetron 8 mg disintegrating 8 mg PO Q8H 01/15/24 02/16/25 History tablet calcium 500 mg tablet 500 mg PO BID 04/08/24 02/16/25 History B12 100 mcg PO DAILY 11/12/24 02/16/25 History Lidocaine-Prilocaine 1 dose topical PRN PRN to numb 11/12/24 02/16/25 History port 30 min before access ferrous sulfate 325 mg (65 mg 325 mg PO DAILY 11/12/24 02/16/25 History iron) tablet (iron) potassium chloride 20 mEq/15 mL 20 meq PO BID 11/12/24 02/16/25 History oral liquid cholestyramine 4 gram oral powder 4 g PO QAM@1000 #30 ea 01/03/25 02/16/25 Rx for suspension in a packet (Prevalite) loperamide 2 mg capsule 2 mg PO TID #20 caps 01/03/25 02/16/25 Rx Saccharomyces boulardii 500 mg PO DAILY 01/06/25 02/16/25 History lansoprazole 30 mg capsule,delayed 30 mg PO DAILY 01/06/25 02/16/25 History release hydrocodone 5 mg-acetaminophen 325 1 tablet PO Q12H PRN pain #60 tabs 02/15/25 02/16/25 Rx mg tablet losartan 50 mg tablet 50 mg PO DAILY #90 tabs 02/15/25 02/16/25 Rx Allergies Allergy/AdvReac Type Severity Reaction Status Date / Time No Known Allergies Allergy Verified 02/15/25 07:49 Vital Signs Vital Signs - 24 hr 02/18/25 14:00 02/18/25 15:45 02/18/25 17:54 Temperature 96.5 F L 97.5 F L Pulse Rate 104 H 106 H 126 H Respiratory Rate 20 24 H 28 H Blood Pressure 128/91 H 160/102 H Pulse Oximetry 96 97 Oxygen Delivery Fraction of Inspired Oxygen 02/18/25 18:30 02/18/25 18:39 02/18/25 19:05 Temperature Pulse Rate 116 H 111 H 113 H Respiratory Rate 20 17 Blood Pressure Pulse Oximetry 100 Oxygen Delivery Mechanical Ventilation Fraction of Inspired Oxygen 100 02/18/25 19:30 02/18/25 19:45 02/18/25 20:00 Temperature Pulse Rate 107 H 100 102 H Respiratory Rate 24 H 18 Blood Pressure Pulse Oximetry 100 Oxygen Delivery Mechanical Ventilation Fraction of Inspired Oxygen 100 02/18/25 20:02 02/18/25 20:09 02/18/25 20:10 Temperature 96.5 F L Pulse Rate 100 101 H 100 Respiratory Rate 18 18 Blood Pressure 121/93 H Pulse Oximetry 100 100 Oxygen Delivery Mechanical Ventilation Fraction of Inspired Oxygen 100 02/18/25 20:30 02/18/25 20:30 02/18/25 21:00 Temperature Pulse Rate 102 H Respiratory Rate 20 Blood Pressure Pulse Oximetry Oxygen Delivery Fraction of Inspired Oxygen 70 50 02/18/25 22:00 02/18/25 22:00 02/18/25 22:33 Temperature 97.1 F L Pulse Rate 91 91 90 Respiratory Rate 17 17 Blood Pressure 101/83 Pulse Oximetry 99 Oxygen Delivery Fraction of Inspired Oxygen 02/18/25 23:30 02/18/25 23:40 02/18/25 23:51 Temperature Pulse Rate 100 85 Respiratory Rate 17 Blood Pressure Pulse Oximetry 100 98 Oxygen Delivery Mechanical Ventilation Mechanical Ventilation Fraction of Inspired Oxygen 40 50 50 02/19/25 00:00 02/19/25 00:00 02/19/25 00:00 Temperature 97.5 F L Pulse Rate 83 83 85 Respiratory Rate 18 18 Blood Pressure 94/74 L Pulse Oximetry 99 Oxygen Delivery Fraction of Inspired Oxygen 02/19/25 01:08 02/19/25 01:08 02/19/25 01:24 Temperature Pulse Rate 82 82 90 Respiratory Rate 18 18 24 H Blood Pressure Pulse Oximetry Oxygen Delivery Fraction of Inspired Oxygen 02/19/25 01:40 02/19/25 02:00 02/19/25 02:00 Temperature 97.2 F L Pulse Rate 81 79 79 Respiratory Rate 26 H 17 Blood Pressure 87/70 L Pulse Oximetry 98 Oxygen Delivery Fraction of Inspired Oxygen 02/19/25 02:00 02/19/25 02:20 02/19/25 03:02 Temperature Pulse Rate 79 79 81 Respiratory Rate 16 16 Blood Pressure Pulse Oximetry 99 Oxygen Delivery Mechanical Ventilation Fraction of Inspired Oxygen 35 02/19/25 03:40 02/19/25 03:47 02/19/25 03:58 Temperature Pulse Rate 82 94 86 Respiratory Rate 16 21 H 26 H Blood Pressure Pulse Oximetry Oxygen Delivery Fraction of Inspired Oxygen 02/19/25 04:00 02/19/25 04:00 02/19/25 04:04 Temperature 97.3 F L Pulse Rate 82 82 83 Respiratory Rate 21 H 22 H Blood Pressure 94/75 L Pulse Oximetry 99 Oxygen Delivery Fraction of Inspired Oxygen 02/19/25 04:05 02/19/25 04:10 02/19/25 05:30 Temperature Pulse Rate 78 Respiratory Rate 22 H Blood Pressure Pulse Oximetry 99 100 Oxygen Delivery Mechanical Ventilation Mechanical Ventilation Fraction of Inspired Oxygen 35 35 35 02/19/25 06:00 02/19/25 06:00 02/19/25 06:01 Temperature 97.1 F L Pulse Rate 79 79 78 Respiratory Rate 18 17 Blood Pressure 94/75 L Pulse Oximetry 100 Oxygen Delivery Fraction of Inspired Oxygen 02/19/25 08:00 02/19/25 08:00 02/19/25 08:22 Temperature 97.7 F Pulse Rate 70 69 78 Respiratory Rate 16 12 16 Blood Pressure 85/66 L Pulse Oximetry 100 Oxygen Delivery Fraction of Inspired Oxygen Exam 2 Narrative: General: Intubated and sedated, in no acute distress HEENT:? Pupils are equal and reactive, sclerae is clear Neck:? Supple Respiratory:? Coarse breath sounds right greater than left, adequate air entry Cardiac:? S1-S2 is normal, regular rate and rhythm Abdomen:? Soft, nontender, nondistended, hypoactive bowel Extremities:? Trace edema, palpable pedal pulses Neuro:? Intubated and sedated, tries to open her eyes, follows simple commands in all extremities Skin:? No skin lesions noted Psych:? Unable to assess at this time Results Labs 02/19/25 05:29 02/19/25 05:29 Labs: Short CBC 02/19/25 Range/Units 05:29 WBC 15.6 H (4.5-10.0) K/mm3 Hgb 7.8 L (12.0-15.0) g/dL Hct 23.7 L (37.0-47.0) % Plt Count 210 (150-375) k/mm3 BMP 02/19/25 02/19/25 05:29 05:29 Sodium 134 L Potassium 2.5 L* Chloride 102 Carbon Dioxide 20 L BUN 19 H Creatinine 1.47 H 1.49 H Glucose 157 H Calcium 6.4 L Cardiac Enzymes 02/18/25 Range/Units 17:44 Troponin I 1.840 H* (0.000-0.034) ng/mL Liver Function 02/19/25 Range/Units 05:29 Total Bilirubin < 0.1 L (0.2-1.3) mg/dL AST 36 (14-36) U/L ALT 19 (6-35) U/L Alkaline Phosphatase 149 H (38-126) U/L Albumin 2.7 L (3.5-5.1) g/dL Quality VTE Prophylaxis VTE prophylaxis: pharmacologic ordered Hospitalist MIPS Advance Care Plan I have confirmed that the patient's Advanced Care Plan is present, code status is documented, or surrogate decision maker is listed in patient medical record.: Yes Medication Reconciliation I have utilized all available resources to obtain, update and review the patients current medications (includes all prescriptions, OTC, herbals, cannabis, and nutritional supplements).: Yes
[2025-02-19 09:07] LABS: Troponin I 1.530 ng/mL (0.000-0.034)
[2025-02-19] MEDS: IPRATROPIUM 0.5 MG/ALBUTEROL SULFATE 2.5 MG AMPUL.NEB 3 ML INHALATION ×3 (09:24→20:23)
[2025-02-19] MEDS: PROPOFOL IV EMULSION 100 ML 9.03 MG IV CONT (09:25)
[2025-02-19] MEDS: POTASSIUM/PHOSPHORUS/SODIUM 1.5 GM PACKET 1 PACKET PO (09:26)
[2025-02-19] MEDS: CHOLESTYRAMINE LIGHT 4 GM POWD.PACK PO ×2 (09:26→17:11)
[2025-02-19] MEDS: FOLIC ACID 1 MG TABLET PO (09:26)
[2025-02-19] MEDS: FERROUS SULFATE 325 MG TABLET DR BY MOUTH ×2 (09:26→16:19)
[2025-02-19] MEDS: MINERAL OIL/WHITE PETROLATUM OINTMENT 1 APPLIC EACH EYE ×2 (09:26→20:17)
[2025-02-19] MEDS: ALBUMIN HUMAN 25% 25 GM/100 ML 100 ML IVPB ×3 (09:27→20:09)
[2025-02-19] MEDS: KCL 40 MEQ/WATER 100 ML 100 ML 25 ML IVPB (09:29)
[2025-02-19] MEDS: LIDOCAINE 1% PF INJ 5 ML VIAL INFILTRATE (10:15)
--- NOTE | 2025-02-19 10:44 | P.PNNP_ITS ---
Progress Note: A&P Assessment and Plan (1) Acute kidney injury: Code(s): N17.9 - Acute kidney failure, unspecified Status: Resolved Assessment and Plan: * Patient has acute kidney injury. * multifactorial etiology: * prerenal factors (poor oral intake + ongoing diarrhea) * hemodynamic instability/hypotension * infection/early sepsis(?) * use of ARB prior to admission * other(?) * evaluation noted: * renal ultrasound okay * urine electrolytes prerenal * urine eosinophils negative * CPK okay * moderate proteinuria * Patient has been getting IV fluids and antibiotics. * Blood pressure has been doing pretty well * Chest x-ray shows pneumonia versus fluid. cut back on fluids now and then stop later. I talked with Dr Ruano (2) Stage 3a chronic kidney disease: Code(s): N18.31 - Chronic kidney disease, stage 3a Status: Chronic Assessment and Plan: * baseline creatinine runs ~ 0.9 - 1.2mg/dl * presumably due to hypertension and age-related change (3) Metabolic acidosis: Code(s): E87.20 - Acidosis, unspecified Status: Resolved Assessment and Plan: * CO2 is much better. * She is on a bicarb drip right now. (4) Hyponatremia: Code(s): E87.1 - Hypo-osmolality and hyponatremia Status: Acute Assessment and Plan: * Sodium level is better as we hydrate. (5) Diarrhea: Qualifiers: Diarrhea type: presumed infectious Qualified Code(s): R19.7 - Diarrhea, unspecified Code(s): R19.7 - Diarrhea, unspecified Status: Acute Assessment and Plan: * appears to be somewhat of a chronic issue * on Imodium as an outpatient * GI following (6) Adenocarcinoma of left lung, stage 4: Code(s): C34.92 - Malignant neoplasm of unspecified part of left bronchus or lung Status: Chronic Assessment and Plan: * known diagnosis * chemotherapy apparently on hold * follows with Hem/Onc Will continue to follow. Subjective Date/time seen: 02/19/25 10:44 Interval history: Patient became more short of breath. He had been a no code but the status was changed to full code so she was intubated last night. Now she is on the ventilator and sedatives. She looks comfortable on the vent. Exam Narrative: General: elderly but WD/WN female in NAD sedated and on the ventilator Heart: normal S1 and S2; no rub or gallop Lungs: Mild coarse upper airway noise Abdomen: soft, nontender, nondistended, positive bowel sounds Extremities: no cyanosis or clubbing; trace edema Skin: No rash or subQ nodules Objective Data Vital Signs Vital Signs: Vital Signs - 24 hr 02/18/25 14:00 02/18/25 15:45 02/18/25 17:54 Temperature 96.5 F L 97.5 F L Pulse Rate 104 H 106 H 126 H Respiratory Rate 20 24 H 28 H Blood Pressure 128/91 H 160/102 H Pulse Oximetry 96 97 Oxygen Delivery Fraction of Inspired Oxygen 02/18/25 18:30 02/18/25 18:39 02/18/25 19:05 Temperature Pulse Rate 116 H 111 H 113 H Respiratory Rate 20 17 Blood Pressure Pulse Oximetry 100 Oxygen Delivery Mechanical Ventilation Fraction of Inspired Oxygen 100 02/18/25 19:30 02/18/25 19:45 02/18/25 20:00 Temperature Pulse Rate 107 H 100 102 H Respiratory Rate 24 H 18 Blood Pressure Pulse Oximetry 100 Oxygen Delivery Mechanical Ventilation Fraction of Inspired Oxygen 100 02/18/25 20:02 02/18/25 20:09 02/18/25 20:10 Temperature 96.5 F L Pulse Rate 100 101 H 100 Respiratory Rate 18 18 Blood Pressure 121/93 H Pulse Oximetry 100 100 Oxygen Delivery Mechanical Ventilation Fraction of Inspired Oxygen 100 02/18/25 20:30 02/18/25 20:30 02/18/25 21:00 Temperature Pulse Rate 102 H Respiratory Rate 20 Blood Pressure Pulse Oximetry Oxygen Delivery Fraction of Inspired Oxygen 70 50 02/18/25 22:00 02/18/25 22:00 02/18/25 22:33 Temperature 97.1 F L Pulse Rate 91 91 90 Respiratory Rate 17 17 Blood Pressure 101/83 Pulse Oximetry 99 Oxygen Delivery Fraction of Inspired Oxygen 02/18/25 23:30 02/18/25 23:40 02/18/25 23:51 Temperature Pulse Rate 100 85 Respiratory Rate 17 Blood Pressure Pulse Oximetry 100 98 Oxygen Delivery Mechanical Ventilation Mechanical Ventilation Fraction of Inspired Oxygen 40 50 50 02/19/25 00:00 02/19/25 00:00 02/19/25 00:00 Temperature 97.5 F L Pulse Rate 83 83 85 Respiratory Rate 18 18 Blood Pressure 94/74 L Pulse Oximetry 99 Oxygen Delivery Fraction of Inspired Oxygen 02/19/25 01:08 02/19/25 01:08 02/19/25 01:24 Temperature Pulse Rate 82 82 90 Respiratory Rate 18 18 24 H Blood Pressure Pulse Oximetry Oxygen Delivery Fraction of Inspired Oxygen 02/19/25 01:40 02/19/25 02:00 02/19/25 02:00 Temperature 97.2 F L Pulse Rate 81 79 79 Respiratory Rate 26 H 17 Blood Pressure 87/70 L Pulse Oximetry 98 Oxygen Delivery Fraction of Inspired Oxygen 02/19/25 02:00 02/19/25 02:20 02/19/25 03:02 Temperature Pulse Rate 79 79 81 Respiratory Rate 16 16 Blood Pressure Pulse Oximetry 99 Oxygen Delivery Mechanical Ventilation Fraction of Inspired Oxygen 35 02/19/25 03:40 02/19/25 03:47 02/19/25 03:58 Temperature Pulse Rate 82 94 86 Respiratory Rate 16 21 H 26 H Blood Pressure Pulse Oximetry Oxygen Delivery Fraction of Inspired Oxygen 02/19/25 04:00 02/19/25 04:00 02/19/25 04:04 Temperature 97.3 F L Pulse Rate 82 82 83 Respiratory Rate 21 H 22 H Blood Pressure 94/75 L Pulse Oximetry 99 Oxygen Delivery Fraction of Inspired Oxygen 02/19/25 04:05 02/19/25 04:10 02/19/25 05:30 Temperature Pulse Rate 78 Respiratory Rate 22 H Blood Pressure Pulse Oximetry 99 100 Oxygen Delivery Mechanical Ventilation Mechanical Ventilation Fraction of Inspired Oxygen 35 35 35 02/19/25 06:00 02/19/25 06:00 02/19/25 06:01 Temperature 97.1 F L Pulse Rate 79 79 78 Respiratory Rate 18 17 Blood Pressure 94/75 L Pulse Oximetry 100 Oxygen Delivery Fraction of Inspired Oxygen 02/19/25 08:00 02/19/25 08:00 02/19/25 08:00 Temperature 97.7 F Pulse Rate 70 69 70 Respiratory Rate 16 12 Blood Pressure 85/66 L Pulse Oximetry 100 Oxygen Delivery Fraction of Inspired Oxygen 02/19/25 08:00 02/19/25 08:22 02/19/25 09:15 Temperature Pulse Rate 78 84 Respiratory Rate 16 15 Blood Pressure Pulse Oximetry Oxygen Delivery Fraction of Inspired Oxygen 30 02/19/25 09:25 02/19/25 09:25 02/19/25 09:31 Temperature Pulse Rate 85 85 80 Respiratory Rate 18 18 20 Blood Pressure Pulse Oximetry Oxygen Delivery Fraction of Inspired Oxygen 02/19/25 09:32 02/19/25 10:00 02/19/25 10:00 Temperature 97.3 F L Pulse Rate 80 86 86 Respiratory Rate 17 Blood Pressure 100/69 Pulse Oximetry 100 100 Oxygen Delivery Mechanical Ventilation Fraction of Inspired Oxygen 30 02/19/25 10:00 02/19/25 10:26 Temperature Pulse Rate 85 87 Respiratory Rate 18 18 Blood Pressure Pulse Oximetry 100 Oxygen Delivery Mechanical Ventilation Fraction of Inspired Oxygen 30 Intake/Output Intake/Output: Intake & Output 02/16/25 02/17/25 02/18/25 02/19/25 23:59 23:59 23:59 23:59 Intake Total 4680 4443.8 667.2 2219.7 Output Total 50 2201 1600 950 Balance 4630 2242.8 -932.8 1269.7 Meds/Results Medications: Active Medications Generic Name Dose Route Start Last Admin Trade Name Freq PRN Reason Stop Dose Admin Acetaminophen 650 mg 02/16/25 14:42 Acetaminophen 325 Mg Tablet PO Q4H PRN Mild Pain (1-3) or Fever Hydrocodone Bitart/Acetaminophen 1 tab 02/16/25 22:21 Hydrocodone/Acetaminophen (*Crx) 5-325 Mg Tablet PO Q12H PRN Pain Rated 4-6 Albuterol/Ipratropium 3 ml 02/19/25 08:00 02/19/25 09:24 Ipratropium 0.5 Mg/Albuterol Sulfate 2.5 Mg Ampul.Neb 3 Ml INHALATION 3 ml Q6HRT [place] Administration Calcium Carbonate 500 mg 02/17/25 09:00 02/18/25 18:52 Calcium Carbonate (Oscal) 500 Mg Tablet PO Not Given BID L[facility] Cholestyramine Resin 4 gm 02/17/25 18:00 02/19/25 09:26 Cholestyramine Light 4 Gm Powd.Pack PO 4 gm BID@1000,1800 L[place]TE Administration Dexamethasone 4 mg 02/17/25 08:00 02/19/25 09:26 Dexamethasone 4 Mg Tablet PO 4 mg BIDWM [place] Administration Ferrous Sulfate 325 mg 02/17/25 08:00 02/19/25 09:26 Ferrous Sulfate [address] BY MOUTH 325 mg BIDWM [place] Administration Folic Acid 1 mg 02/17/25 09:00 02/19/25 09:26 Folic Acid 1 Mg Tablet PO 1 mg DAILY [place] Administration Heparin Sodium (Beef Lung) 50 units 02/19/25 09:00 02/19/25 09:27 Heparin Flush 50 Units/5 Ml Syringe IV PUSH Not Given QAM L[place] Heparin Sodium (Beef Lung) 50 units 02/18/25 19:00 Heparin Flush 50 Units/5 Ml Syringe IV PUSH PRN PRN after intermittent infusion Heparin Sodium (Beef Lung) 50 units 02/18/25 19:00 Heparin Flush 50 Units/5 Ml Syringe IV PUSH PRN PRN after blood draws Heparin Sodium (Porcine) 5,000 units 02/17/25 22:00 02/19/25 05:34 Heparin Sodium 5,000 Units/Ml Vial SUB-Q 5,000 units Q8HR [place] Administration Heparin Sodium (Porcine) 500 units 02/18/25 19:00 Heparin Sodium Lock Flush 500 Units/5 Ml Syringe IV PUSH PRN PRN see comments below Sodium Bicarbonate 150 meq/ 1,100 mls @ 75 mls/hr 02/18/25 18:30 02/19/25 10:00 Dextrose IV CONT 75 mls/hr .[id number] [place] Infusion Meropenem 1 gm in 100 mls @ 200 mls/hr 02/18/25 19:00 02/19/25 06:05 IVPB Infused Q12H [facility] Infusion Propofol 100 mls @ 7.224 mls/hr 02/18/25 18:45 02/19/25 10:00 Diprivan IV CONT 25 mcg/kg/min .[id number] [place] 9.03 mls/hr Titration Protocol 20 MCG/KG/MIN Potassium Chloride 100 mls @ 25 mls/hr 02/19/25 07:29 02/19/25 09:29 Kcl 40 Meq/Water 100 Ml IVPB 02/19/25 11:28 25 mls/hr ONCE ONE Administration Albumin Human 100 mls @ 60 mls/hr 02/19/25 08:00 02/19/25 09:27 Albutein IVPB 02/20/25 03:39 60 mls/hr Q6H [place] Administration Loperamide HCl 2 mg 02/17/25 00:04 02/18/25 15:38 Loperamide Hcl 2 Mg Capsule PO 2 mg TID PRN Administration Diarrhea Melatonin 10 mg 02/18/25 21:00 Melatonin 5 Mg Tablet PO HS [facility] Multi-Ingred Cream/Lotion/Oil/Oint 1 applic 02/18/25 21:00 02/19/25 09:26 Mineral Oil/White Petrolatum Ointment EACH EYE 1 applic Q12HR [place] Administration Nitroglycerin 0.4 mg 02/18/25 16:44 02/18/25 17:15 Nitroglycerin Sl 0.4 Mg Tablet SUBLINGUAL 0.4 mg Q5MIN PRN Administration Chest Pain Ondansetron HCl 4 mg 02/16/25 14:42 Ondansetron Inj 4 Mg/2 Ml Vial IV PUSH Q4H PRN Nausea Perflutren Lipid Microsphere 0 ml 02/19/25 07:39 Perflutren Lipid Microspheres 1.5 Ml Vial Diluted To 10 Ml Total Volume IV PUSH 02/22/25 07:39 ONCE PRN adequate visualization Protocol Sodium Chloride 10 ml 02/18/25 22:00 02/19/25 05:35 Central Line Flush IV PUSH 10 ml Q8HR [place] Administration Vancomycin HCl 1 each 02/18/25 19:15 Vancomycin For Acute Kidney Injury IVPB PRN PRN Vancomycin Protocol Radiology Results: ITS Impressions Renal Ultrasound 02/17/25 08:54 IMPRESSION: 1. Normal kidneys without hydronephrosis. Abdomen X-Ray 02/18/25 19:29 IMPRESSION: Orogastric tube in good position and ready for immediate use. Chest X-Ray 02/19/25 07:33 Impression: Probable bibasilar pulmonary edema/atelectasis, versus possibly bibasilar pneumonia. Correlate clinically. Suspected minimal right pleural effusion. Support tubes, as above. Head CT 02/19/25 09:07 IMPRESSION: No acute intracranial findings. Chest/Abdomen/Pelvis CT 02/19/25 09:17 IMPRESSION: CHEST: 1. Bilateral moderate pleural effusion with adjacent atelectasis versus pneumonia. 2. Trace of pericardial effusion. 3. Sclerotic changes in the superior endplate of T1. MRI evaluation to exclude acute fracture. ABDOMEN/PELVIS: 1. No evidence of appendicitis, diverticulitis or intestinal obstruction. No kidney stones. Labs Labs: Laboratory Results - last 24 hr 02/18/25 02/18/25 02/18/25 17:34 17:44 19:39 WBC RBC Hgb Hct MCV MCH MCHC RDW Plt Count MPV Puncture Site Right brachial Right radial ABG pH 7.136 L* 7.295 L* ABG pCO2 23.6 L* 25.8 L ABG pO2 58.8 L 257.5 H ABG PO2/FiO2 Ratio 2.10 2.58 ABG HCO3 7.8 L 12.3 L ABG O2 Saturation 82.6 L* 99.5 ABG O2 Content 12.2 L 15.6 L ABG Base Excess -19.6 -12.7 A-a Gradient 113.0 429.7 Oxyhemoglobin 83.7 L* 98.8 Carboxyhemoglobin 0.3 Methemoglobin 0.3 Reduced Hemoglobin 0.6 Total Hemoglobin 10.3 L 10.8 L O2 Delivery Device Nasal cannula Ventilator O2 Liters/Min 2.0 Not Reportable Minute Volume Not Reportable Vent Rate 12 Vent Mode Cmv FiO2 28 100 Tidal Volume 400 PEEP 5 Peak Inspir Pressure Not Reportable Pressure Support Not Reportable Sodium Potassium Chloride Carbon Dioxide Anion Gap BUN Creatinine Estim Creat Clear Calc Estimated GFR Glucose Lactic Acid 4.3 H* Calcium Phosphorus Magnesium Total Bilirubin AST ALT Alkaline Phosphatase Troponin I 1.840 H* Total Protein Albumin Triglycerides 136 Nasal MRSA (PCR) 02/18/25 02/18/25 02/19/25 21:42 23:21 04:44 WBC RBC Hgb Hct MCV MCH MCHC RDW Plt Count MPV Puncture Site Right radial ABG pH 7.504 H* ABG pCO2 27.5 L ABG pO2 94.4 ABG PO2/FiO2 Ratio 2.70 ABG HCO3 21.2 L ABG O2 Saturation 97.9 ABG O2 Content 11.9 L ABG Base Excess -1.4 A-a Gradient 123.2 Oxyhemoglobin 96.7 Carboxyhemoglobin 0.3 Methemoglobin 0.3 Reduced Hemoglobin 2.7 Total Hemoglobin 8.6 L O2 Delivery Device Ventilator O2 Liters/Min Not Reportable Minute Volume Not Reportable Vent Rate 12 Vent Mode Cmv FiO2 35 Tidal Volume 400 PEEP 5 Peak Inspir Pressure Not Reportable Pressure Support Not Reportable Sodium Potassium Chloride Carbon Dioxide Anion Gap BUN Creatinine Estim Creat Clear Calc Estimated GFR Glucose Lactic Acid 2.0 Calcium Phosphorus Magnesium Total Bilirubin AST ALT Alkaline Phosphatase Troponin I Total Protein Albumin Triglycerides Nasal MRSA (PCR) Not detected 02/19/25 02/19/25 02/19/25 05:29 05:29 05:29 WBC 15.6 H RBC 2.57 L Hgb 7.8 L Hct 23.7 L MCV 92.2 MCH 30.4 MCHC 32.9 RDW 15.3 H Plt Count 210 MPV 8.8 Puncture Site ABG pH ABG pCO2 ABG pO2 ABG PO2/FiO2 Ratio ABG HCO3 ABG O2 Saturation ABG O2 Content ABG Base Excess A-a Gradient Oxyhemoglobin Carboxyhemoglobin Methemoglobin Reduced Hemoglobin Total Hemoglobin O2 Delivery Device O2 Liters/Min Minute Volume Vent Rate Vent Mode FiO2 Tidal Volume PEEP Peak Inspir Pressure Pressure Support Sodium 134 L Potassium 2.5 L* Chloride 102 Carbon Dioxide 20 L Anion Gap 12 BUN 19 H Creatinine 1.47 H 1.49 H Estim Creat Clear Calc 26 25 Estimated GFR 36 L Glucose Lactic Acid Calcium Phosphorus Magnesium Total Bilirubin AST ALT Alkaline Phosphatase Troponin I Total Protein Albumin Triglycerides Nasal MRSA (PCR) 02/19/25 02/19/25 05:29 08:20 WBC RBC Hgb Hct MCV MCH MCHC RDW Plt Count MPV Puncture Site ABG pH ABG pCO2 ABG pO2 ABG PO2/FiO2 Ratio ABG HCO3 ABG O2 Saturation ABG O2 Content ABG Base Excess A-a Gradient Oxyhemoglobin Carboxyhemoglobin Methemoglobin Reduced Hemoglobin Total Hemoglobin O2 Delivery Device O2 Liters/Min Minute Volume Vent Rate Vent Mode FiO2 Tidal Volume PEEP Peak Inspir Pressure Pressure Support Sodium Potassium Chloride Carbon Dioxide Anion Gap BUN Creatinine Estim Creat Clear Calc Estimated GFR 35 L Glucose 157 H Lactic Acid Calcium 6.4 L Phosphorus 2.3 L Magnesium 1.3 L Total Bilirubin < 0.1 L AST 36 ALT 19 Alkaline Phosphatase 149 H Troponin I 1.530 H* Total Protein 5.0 L Albumin 2.7 L Triglycerides Nasal MRSA (PCR)
[2025-02-19] MEDS: SODIUM BICARBONATE 8.4% 150 MEQ in DEXTROSE 5% 1,000 ML 950 ML 75 MEQ IV CONT (11:25)
[2025-02-19] MEDS: PERFLUTREN LIPID MICROSPHERES 1.5 ML VIAL DILUTED TO 10 ML TOTAL VOLUME IV PUSH (11:40)
--- NOTE | 2025-02-19 11:52 | IVDEFINITY ---
Prior to administration of IV Definity the patient was educated on the risks and benefits of the imaging enhancing agent including potential adverse side effects. The patient verbalized understanding. Allergies were verified. No exclusion criteria were identified and at least one of the following inclusion criteria were met: 1) physician request, 2) patient technically difficult to image (per the [place] [employer] guidelines of two or more segments not discernable within the apical view), or 3) questionable left ventricular function. ?
[2025-02-19] MEDS: CALCIUM GLUC 2,000 MG/NS 100ML 2,000 MG/100 ML BAG 100 MG IVPB (12:00)
--- NOTE | 2025-02-19 12:09 | PC.NURSE ---
Patient nurse notified me of patient having chest pain and difficulty breathing, physician on the floor, orders placed, family came to the bedside, received ICU bed from warehouse shipper after decision was made to intubate patient. Patient moved to ICU 1.
[2025-02-19] MEDS: MIDAZOLAM 100MG/NS 100ML(*CRX) 100 MG/100 ML BAG IV CONT (13:43)
--- NOTE | 2025-02-19 15:59 | P.PNGI_ITS ---
Progress Note: A&P Assessment and Plan (1) Diarrhea: Qualifiers: Diarrhea type: presumed infectious Qualified Code(s): R19.7 - Diarrhea, unspecified Code(s): R19.7 - Diarrhea, unspecified Status: Acute Assessment and Plan: Last night events noticed, patient suffer an acute decompensation, having severe desaturation requiring intubation and mechanical ventilation, currently in the ICU. She has an orogastric tube on intermittent suction and no feeding has been provided. The patient has not had bowel movement. According to a conversation with the automation analyst monorail charger operator today, once she can start receiving oral feedings, she should resume cholestyramine 4 g every 12 hours. Subjective Date/time seen: 02/19/25 15:59 Objective Data Vital Signs Vital Signs: Vital Signs - 24 hr 02/18/25 17:54 02/18/25 18:30 02/18/25 18:39 Temperature Pulse Rate 126 H 116 H 111 H Respiratory Rate 28 H 20 Blood Pressure Pulse Oximetry 100 Oxygen Delivery Mechanical Ventilation Fraction of Inspired Oxygen 100 02/18/25 19:05 02/18/25 19:30 02/18/25 19:45 Temperature Pulse Rate 113 H 107 H 100 Respiratory Rate 17 24 H 18 Blood Pressure Pulse Oximetry 100 Oxygen Delivery Mechanical Ventilation Fraction of Inspired Oxygen 100 02/18/25 20:00 02/18/25 20:02 02/18/25 20:09 Temperature Pulse Rate 102 H 100 101 H Respiratory Rate 18 Blood Pressure Pulse Oximetry 100 Oxygen Delivery Mechanical Ventilation Fraction of Inspired Oxygen 100 02/18/25 20:10 02/18/25 20:30 02/18/25 20:30 Temperature 96.5 F L Pulse Rate 100 102 H Respiratory Rate 18 20 Blood Pressure 121/93 H Pulse Oximetry 100 Oxygen Delivery Fraction of Inspired Oxygen 70 02/18/25 21:00 02/18/25 22:00 02/18/25 22:00 Temperature 97.1 F L Pulse Rate 91 91 Respiratory Rate 17 17 Blood Pressure 101/83 Pulse Oximetry 99 Oxygen Delivery Fraction of Inspired Oxygen 50 02/18/25 22:33 02/18/25 23:30 02/18/25 23:40 Temperature Pulse Rate 90 100 85 Respiratory Rate 17 Blood Pressure Pulse Oximetry 100 98 Oxygen Delivery Mechanical Ventilation Mechanical Ventilation Fraction of Inspired Oxygen 40 50 02/18/25 23:51 02/19/25 00:00 02/19/25 00:00 Temperature 97.5 F L Pulse Rate 83 83 Respiratory Rate 18 18 Blood Pressure 94/74 L Pulse Oximetry 99 Oxygen Delivery Fraction of Inspired Oxygen 50 02/19/25 00:00 02/19/25 01:08 02/19/25 01:08 Temperature Pulse Rate 85 82 82 Respiratory Rate 18 18 Blood Pressure Pulse Oximetry Oxygen Delivery Fraction of Inspired Oxygen 02/19/25 01:24 02/19/25 01:40 02/19/25 02:00 Temperature Pulse Rate 90 81 79 Respiratory Rate 24 H 26 H Blood Pressure Pulse Oximetry Oxygen Delivery Fraction of Inspired Oxygen 02/19/25 02:00 02/19/25 02:00 02/19/25 02:20 Temperature 97.2 F L Pulse Rate 79 79 79 Respiratory Rate 17 16 Blood Pressure 87/70 L Pulse Oximetry 98 99 Oxygen Delivery Mechanical Ventilation Fraction of Inspired Oxygen 35 02/19/25 03:02 02/19/25 03:40 02/19/25 03:47 Temperature Pulse Rate 81 82 94 Respiratory Rate 16 16 21 H Blood Pressure Pulse Oximetry Oxygen Delivery Fraction of Inspired Oxygen 02/19/25 03:58 02/19/25 04:00 02/19/25 04:00 Temperature 97.3 F L Pulse Rate 86 82 82 Respiratory Rate 26 H 21 H Blood Pressure 94/75 L Pulse Oximetry 99 Oxygen Delivery Fraction of Inspired Oxygen 02/19/25 04:04 02/19/25 04:05 02/19/25 04:10 Temperature Pulse Rate 83 Respiratory Rate 22 H 22 H Blood Pressure Pulse Oximetry 99 Oxygen Delivery Mechanical Ventilation Fraction of Inspired Oxygen 35 35 02/19/25 05:30 02/19/25 06:00 02/19/25 06:00 Temperature 97.1 F L Pulse Rate 78 79 79 Respiratory Rate 18 Blood Pressure 94/75 L Pulse Oximetry 100 100 Oxygen Delivery Mechanical Ventilation Fraction of Inspired Oxygen 35 02/19/25 06:01 02/19/25 08:00 02/19/25 08:00 Temperature 97.7 F Pulse Rate 78 70 69 Respiratory Rate 17 16 12 Blood Pressure 85/66 L Pulse Oximetry 100 Oxygen Delivery Fraction of Inspired Oxygen 02/19/25 08:00 02/19/25 08:00 02/19/25 08:22 Temperature Pulse Rate 70 78 Respiratory Rate 16 Blood Pressure Pulse Oximetry Oxygen Delivery Fraction of Inspired Oxygen 30 02/19/25 09:15 02/19/25 09:25 02/19/25 09:25 Temperature Pulse Rate 84 85 85 Respiratory Rate 15 18 18 Blood Pressure Pulse Oximetry Oxygen Delivery Fraction of Inspired Oxygen 02/19/25 09:31 02/19/25 09:32 02/19/25 10:00 Temperature 97.3 F L Pulse Rate 80 80 86 Respiratory Rate 20 17 Blood Pressure 100/69 Pulse Oximetry 100 100 Oxygen Delivery Mechanical Ventilation Fraction of Inspired Oxygen 30 02/19/25 10:00 02/19/25 10:00 02/19/25 10:26 Temperature Pulse Rate 86 85 87 Respiratory Rate 18 18 Blood Pressure Pulse Oximetry 100 Oxygen Delivery Mechanical Ventilation Fraction of Inspired Oxygen 30 02/19/25 11:17 02/19/25 11:30 02/19/25 11:50 Temperature Pulse Rate 91 93 83 Respiratory Rate 17 18 Blood Pressure Pulse Oximetry 96 100 Oxygen Delivery Mechanical Ventilation Mechanical Ventilation Fraction of Inspired Oxygen 30 30 02/19/25 12:00 02/19/25 12:00 02/19/25 12:00 Temperature 97.3 F L Pulse Rate 82 85 Respiratory Rate 18 18 Blood Pressure 92/65 L Pulse Oximetry 100 Oxygen Delivery Fraction of Inspired Oxygen 30 02/19/25 12:00 02/19/25 12:26 02/19/25 13:40 Temperature Pulse Rate 83 88 83 Respiratory Rate 23 H 19 Blood Pressure Pulse Oximetry Oxygen Delivery Fraction of Inspired Oxygen 02/19/25 13:43 02/19/25 13:57 02/19/25 14:00 Temperature Pulse Rate 84 84 87 Respiratory Rate 19 17 18 Blood Pressure Pulse Oximetry Oxygen Delivery Fraction of Inspired Oxygen 02/19/25 14:00 02/19/25 14:00 02/19/25 14:16 Temperature 97.8 F Pulse Rate 85 85 82 Respiratory Rate 20 20 Blood Pressure 100/71 Pulse Oximetry 100 Oxygen Delivery Fraction of Inspired Oxygen 02/19/25 14:17 02/19/25 14:33 02/19/25 14:33 Temperature Pulse Rate 82 70 70 Respiratory Rate 20 17 20 Blood Pressure Pulse Oximetry Oxygen Delivery Fraction of Inspired Oxygen 02/19/25 14:39 02/19/25 14:43 02/19/25 14:44 Temperature Pulse Rate 72 88 72 Respiratory Rate 16 16 Blood Pressure Pulse Oximetry 100 Oxygen Delivery Mechanical Ventilation Fraction of Inspired Oxygen 30 02/19/25 14:48 02/19/25 15:16 02/19/25 15:16 Temperature Pulse Rate 75 79 79 Respiratory Rate 16 16 16 Blood Pressure Pulse Oximetry Oxygen Delivery Fraction of Inspired Oxygen 02/19/25 15:40 Temperature Pulse Rate 78 Respiratory Rate 16 Blood Pressure Pulse Oximetry 100 Oxygen Delivery Mechanical Ventilation Fraction of Inspired Oxygen 30 Intake/Output Intake/Output: Intake & Output 02/16/25 02/17/25 02/18/25 02/19/25 23:59 23:59 23:59 23:59 Intake Total 4680 4443.8 667.2 3138.5 Output Total 50 2201 1600 950 Balance 4630 2242.8 -932.8 2188.5 Meds/Results Medications: Active Medications Generic Name Dose Route Start Last Admin Trade Name Freq PRN Reason Stop Dose Admin Acetaminophen 650 mg 02/16/25 14:42 Acetaminophen 325 Mg Tablet PO Q4H PRN Mild Pain (1-3) or Fever Hydrocodone Bitart/Acetaminophen 1 tab 02/16/25 22:21 Hydrocodone/Acetaminophen (*Crx) 5-325 Mg Tablet PO Q12H PRN Pain Rated 4-6 Albuterol/Ipratropium 3 ml 02/19/25 08:00 02/19/25 14:38 Ipratropium 0.5 Mg/Albuterol Sulfate 2.5 Mg Ampul.Neb 3 Ml INHALATION 3 ml Q6HRT [place] Administration Calcium Carbonate 500 mg 02/17/25 09:00 02/18/25 18:52 Calcium Carbonate (Oscal) 500 Mg Tablet PO Not Given BID [facility] Cholestyramine Resin 4 gm 02/17/25 18:00 02/19/25 09:26 Cholestyramine Light 4 Gm Powd.Pack PO 4 gm BID@1000,1800 [place] Administration Dexamethasone 4 mg 02/17/25 08:00 02/19/25 09:26 Dexamethasone 4 Mg Tablet PO 4 mg BIDWM [facility] Administration Ferrous Sulfate 325 mg 02/17/25 08:00 02/19/25 09:26 Ferrous Sulfate [address] BY MOUTH 325 mg BIDWM [place] Administration Folic Acid 1 mg 02/17/25 09:00 02/19/25 09:26 Folic Acid 1 Mg Tablet PO 1 mg DAILY [facility] Administration Heparin Sodium (Beef Lung) 50 units 02/19/25 09:00 02/19/25 09:27 Heparin Flush 50 Units/5 Ml Syringe IV PUSH Not Given QAM [place] Heparin Sodium (Beef Lung) 50 units 02/18/25 19:00 Heparin Flush 50 Units/5 Ml Syringe IV PUSH PRN PRN after intermittent infusion Heparin Sodium (Beef Lung) 50 units 02/18/25 19:00 Heparin Flush 50 Units/5 Ml Syringe IV PUSH PRN PRN after blood draws Heparin Sodium (Porcine) 5,000 units 02/17/25 22:00 02/19/25 13:53 Heparin Sodium 5,000 Units/Ml Vial SUB-Q 5,000 units Q8HR [place] Administration Heparin Sodium (Porcine) 500 units 02/18/25 19:00 Heparin Sodium Lock Flush 500 Units/5 Ml Syringe IV PUSH PRN PRN see comments below Sodium Bicarbonate 150 meq/ 1,100 mls @ 75 mls/hr 02/18/25 18:30 02/19/25 14:00 Dextrose IV CONT 02/19/25 18:00 75 mls/hr .[id number] [place] Infusion Meropenem 1 gm in 100 mls @ 200 mls/hr 02/18/25 19:00 02/19/25 06:05 IVPB Infused Q12H [place] Infusion Propofol 100 mls @ 9.03 mls/hr 02/18/25 18:45 02/19/25 15:16 Diprivan IV CONT 25 mcg/kg/min .[id number] [place] 9.03 mls/hr Titration Protocol 25 MCG/KG/MIN Albumin Human 100 mls @ 60 mls/hr 02/19/25 08:00 02/19/25 15:45 Albutein IVPB 02/20/25 03:39 Infused Q6H [place] Infusion Midazolam HCl 100 mg in 100 mls @ 5 mls/hr 02/19/25 13:35 02/19/25 15:16 Versed 100 Mg/Ns 100 Ml IV CONT 5 mg/hr .Q20H [place] 5 mls/hr Titration Protocol 5 MG/HR Loperamide HCl 2 mg 02/17/25 00:04 02/18/25 15:38 Loperamide Hcl 2 Mg Capsule PO 2 mg TID PRN Administration Diarrhea Melatonin 10 mg 02/18/25 21:00 Melatonin 5 Mg Tablet PO HS [place] Multi-Ingred Cream/Lotion/Oil/Oint 1 applic 02/18/25 21:00 02/19/25 09:26 Mineral Oil/White Petrolatum Ointment EACH EYE 1 applic Q12HR [place] Administration Nitroglycerin 0.4 mg 02/18/25 16:44 02/18/25 17:15 Nitroglycerin Sl 0.4 Mg Tablet SUBLINGUAL 0.4 mg Q5MIN PRN Administration Chest Pain Ondansetron HCl 4 mg 02/16/25 14:42 Ondansetron Inj 4 Mg/2 Ml Vial IV PUSH Q4H PRN Nausea Pantoprazole Sodium 40 mg 02/19/25 21:00 Pantoprazole Sodium Iv 40 Mg Vial IV PUSH Q12HR [place] Sodium Chloride 10 ml 02/18/25 22:00 02/19/25 13:58 Central Line Flush IV PUSH 10 ml Q8HR [place] Administration Sodium Chloride 10 ml 02/19/25 14:00 02/19/25 13:58 Central Line Flush IV PUSH 10 ml Q8HR [place] Administration Sodium Chloride 10 ml 02/19/25 10:47 Central Line Flush IV PUSH PRN PRN with TPN bag changes Sodium Chloride 20 ml 02/19/25 10:47 Central Line Flush IV PUSH PRN PRN after blood draws Vancomycin HCl 1 each 02/18/25 19:15 Vancomycin For Acute Kidney Injury IVPB PRN PRN Vancomycin Protocol Radiology Results: ITS Impressions Renal Ultrasound 02/17/25 08:54 IMPRESSION: 1. Normal kidneys without hydronephrosis. Abdomen X-Ray 02/18/25 19:29 IMPRESSION: Orogastric tube in good position and ready for immediate use. Head CT 02/19/25 09:07 IMPRESSION: No acute intracranial findings. Chest/Abdomen/Pelvis CT 02/19/25 09:17 IMPRESSION: CHEST: 1. Bilateral moderate pleural effusion with adjacent atelectasis versus pneumonia. 2. Trace of pericardial effusion. 3. Sclerotic changes in the superior endplate of T1. MRI evaluation to exclude acute fracture. ABDOMEN/PELVIS: 1. No evidence of appendicitis, diverticulitis or intestinal obstruction. No kidney stones. Chest X-Ray 02/19/25 10:56 IMPRESSION: Tip of the PICC line is in the distal SVC. Labs Labs: Laboratory Results - last 24 hr 02/18/25 02/18/25 02/18/25 17:34 17:44 19:39 WBC RBC Hgb Hct MCV MCH MCHC RDW Plt Count MPV Puncture Site Right brachial Right radial ABG pH 7.136 L* 7.295 L* ABG pCO2 23.6 L* 25.8 L ABG pO2 58.8 L 257.5 H ABG PO2/FiO2 Ratio 2.10 2.58 ABG HCO3 7.8 L 12.3 L ABG O2 Saturation 82.6 L* 99.5 ABG O2 Content 12.2 L 15.6 L ABG Base Excess -19.6 -12.7 A-a Gradient 113.0 429.7 Oxyhemoglobin 83.7 L* 98.8 Carboxyhemoglobin 0.3 Methemoglobin 0.3 Reduced Hemoglobin 0.6 Total Hemoglobin 10.3 L 10.8 L O2 Delivery Device Nasal cannula Ventilator O2 Liters/Min 2.0 Not Reportable Minute Volume Not Reportable Vent Rate 12 Vent Mode Cmv FiO2 28 100 Tidal Volume 400 PEEP 5 Peak Inspir Pressure Not Reportable Pressure Support Not Reportable Sodium Potassium Chloride Carbon Dioxide Anion Gap BUN Creatinine Estim Creat Clear Calc Estimated GFR Glucose POC Capillary Glucose Lactic Acid 4.3 H* Calcium Phosphorus Magnesium Total Bilirubin AST ALT Alkaline Phosphatase Troponin I 1.840 H* Total Protein Albumin Triglycerides 136 Nasal MRSA (PCR) 02/18/25 02/18/25 02/19/25 21:42 23:21 04:44 WBC RBC Hgb Hct MCV MCH MCHC RDW Plt Count MPV Puncture Site Right radial ABG pH 7.504 H* ABG pCO2 27.5 L ABG pO2 94.4 ABG PO2/FiO2 Ratio 2.70 ABG HCO3 21.2 L ABG O2 Saturation 97.9 ABG O2 Content 11.9 L ABG Base Excess -1.4 A-a Gradient 123.2 Oxyhemoglobin 96.7 Carboxyhemoglobin 0.3 Methemoglobin 0.3 Reduced Hemoglobin 2.7 Total Hemoglobin 8.6 L O2 Delivery Device Ventilator O2 Liters/Min Not Reportable Minute Volume Not Reportable Vent Rate 12 Vent Mode Cmv FiO2 35 Tidal Volume 400 PEEP 5 Peak Inspir Pressure Not Reportable Pressure Support Not Reportable Sodium Potassium Chloride Carbon Dioxide Anion Gap BUN Creatinine Estim Creat Clear Calc Estimated GFR Glucose POC Capillary Glucose Lactic Acid 2.0 Calcium Phosphorus Magnesium Total Bilirubin AST ALT Alkaline Phosphatase Troponin I Total Protein Albumin Triglycerides Nasal MRSA (PCR) Not detected 02/19/25 02/19/25 02/19/25 05:29 05:29 05:29 WBC 15.6 H RBC 2.57 L Hgb 7.8 L Hct 23.7 L MCV 92.2 MCH 30.4 MCHC 32.9 RDW 15.3 H Plt Count 210 MPV 8.8 Puncture Site ABG pH ABG pCO2 ABG pO2 ABG PO2/FiO2 Ratio ABG HCO3 ABG O2 Saturation ABG O2 Content ABG Base Excess A-a Gradient Oxyhemoglobin Carboxyhemoglobin Methemoglobin Reduced Hemoglobin Total Hemoglobin O2 Delivery Device O2 Liters/Min Minute Volume Vent Rate Vent Mode FiO2 Tidal Volume PEEP Peak Inspir Pressure Pressure Support Sodium 134 L Potassium 2.5 L* Chloride 102 Carbon Dioxide 20 L Anion Gap 12 BUN 19 H Creatinine 1.47 H 1.49 H Estim Creat Clear Calc 26 25 Estimated GFR 36 L Glucose POC Capillary Glucose Lactic Acid Calcium Phosphorus Magnesium Total Bilirubin AST ALT Alkaline Phosphatase Troponin I Total Protein Albumin Triglycerides Nasal MRSA (PCR) 02/19/25 02/19/25 02/19/25 05:29 08:20 12:19 WBC RBC Hgb Hct MCV MCH MCHC RDW Plt Count MPV Puncture Site ABG pH ABG pCO2 ABG pO2 ABG PO2/FiO2 Ratio ABG HCO3 ABG O2 Saturation ABG O2 Content ABG Base Excess A-a Gradient Oxyhemoglobin Carboxyhemoglobin Methemoglobin Reduced Hemoglobin Total Hemoglobin O2 Delivery Device O2 Liters/Min Minute Volume Vent Rate Vent Mode FiO2 Tidal Volume PEEP Peak Inspir Pressure Pressure Support Sodium Potassium Chloride Carbon Dioxide Anion Gap BUN Creatinine Estim Creat Clear Calc Estimated GFR 35 L Glucose 157 H POC Capillary Glucose 149 H Lactic Acid Calcium 6.4 L Phosphorus 2.3 L Magnesium 1.3 L Total Bilirubin < 0.1 L AST 36 ALT 19 Alkaline Phosphatase 149 H Troponin I 1.530 H* Total Protein 5.0 L Albumin 2.7 L Triglycerides Nasal MRSA (PCR)
[2025-02-19] MEDS: PROPOFOL IV EMULSION 100 ML 10.84 MG IV CONT (18:25)
[2025-02-19] MEDS: PANTOPRAZOLE SODIUM IV 40 MG VIAL IV PUSH (20:17)
[2025-02-19] MEDS: VANCOMYCIN 1,000 MG/NS 250 ML 1,000 MG/250 ML BAG 250 MG IVPB (21:20)
[2025-02-20] VITALS (41 sets, daily range): BP systolic 100–138; BP diastolic 54–96; PULSE 70–100; RESP 14–21; TEMP 36.4–38.1; O2SAT 97–100
[2025-02-20] MEDS: IPRATROPIUM 0.5 MG/ALBUTEROL SULFATE 2.5 MG AMPUL.NEB 3 ML INHALATION ×4 (01:55→20:29)
[2025-02-20] MEDS: ALBUMIN HUMAN 25% 25 GM/100 ML 100 ML IVPB (02:19)
[2025-02-20] MEDS: PROPOFOL IV EMULSION 100 ML 10.84 MG IV CONT ×2 (03:29→13:05)
[2025-02-20 04:43] LABS: Immature Granulocyte Percent A 8.4 % (0-0.5); Lymphocytes Absolute Auto 0.87 K/mm3 (0.9-3.2); Mean Corpuscular HGB Conc 33.3 g/dl (32-36); Mean Corpuscular Hemoglobin 31.1 pg (26-34); Mean Corpuscular Volume 93.4 fl (80-100); Nucleated Red Blood Cells Absolute Auto 0.000 K/mm3 (0.0-0.012); Nucleated Red Blood Cells Perc 0.0 % (0.0-0.2); Platelet Count Result 195 k/mm3 (150-375); Red Blood Count 2.12 M/mm3 (4.2-5.4); White Blood Count 14.0 K/mm3 (4.5-10.0)
[2025-02-20 04:57] LABS: Alanine Aminotransferase 18 U/L (6-35); Albumin Level 3.9 g/dL (3.5-5.1); Alkaline Phosphatase 101 U/L (38-126); Anion Gap 12 mmol/L (4-12); Aspartate Amino Transferase 31 U/L (14-36); Bilirubin,Total < 0.1 mg/dL (0.2-1.3); Blood Urea Nitrogen 14 mg/dL (7-17); Calcium 6.9 mg/dL (8.4-10.2); Carbon Dioxide 25 mmol/L (22-30); Chloride 102 mmol/L (98-107); Estimated CRCL calculation 31 ml/min; Estimated Glomerular Filt Rate 45; Glucose 126 mg/dL (65-110); Magnesium 2.1 mg/dL (1.6-2.3); Potassium 2.5 mmol/L (3.4-5.0); Sodium 139 mmol/L (137-145); Total Protein 5.7 g/dL (6.3-8.2)
[2025-02-20] MEDS: MIDAZOLAM 100MG/NS 100ML(*CRX) 100 MG/100 ML BAG IV CONT (05:08)
[2025-02-20 05:20] LABS: Alveolar/Arterial O2 Gradient 71.8 mmHg; Carboxyhemoglobin 0.7 % THb (0-2.0); Fractional Inspired Oxygen 30 %; HCO3 ABG 26.3 mEq/l (22.0-26.0); Methemoglobin ABG 0.1 %THb (0-1.5); Oxygen Content ABG 9.7 %vol (16.0-22.0); Oxygen Saturation ABG 98.1 % (95.0-100.0); PCO2 ABG 34.9 mmHg (35.0-45.0); PO2 ABG 101.1 mmHg (80.0-100.0); PO2 FiO2 Ratio Arterial Blood 3.37 %; Reduced Hemoglobin 2.3 %THb (0-5.0)
[2025-02-20 05:23] LABS: Hematocrit 19.8 % (37.0-47.0); Hemoglobin 6.6 g/dL (12.0-15.0)
[2025-02-20 05:39] LABS: Modified Allen's Test Pass; Site Drawn RIGHT RADIAL
[2025-02-20 05:40] LABS: Arterial Blood Gas Ventilator rate 16 /MIN
[2025-02-20 05:41] LABS: Arterial Blood Gas Tidal Volume 350 ml
[2025-02-20] MEDS: POTASSIUM CHLORIDE 20 MEQ PACKET (FOR LIQUID) 40 MEQ FEED TUBE (05:54)
[2025-02-20] MEDS: KCL 40 MEQ/WATER 100 ML 100 ML 25 ML IVPB (05:58)
[2025-02-20] MEDS: MEROPENEM 1 GM/NS 100 ML BAG IVPB ×2 (06:10→18:48)
[2025-02-20] MEDS: CENTRAL LINE FLUSH 10 ML IV PUSH ×5 (06:16→22:02)
[2025-02-20] MEDS: CALCIUM GLUC 1,000 MG/NS 50 ML 1,000 MG/50 ML BAG 100 MG IVPB (08:09)
--- NOTE | 2025-02-20 08:09 | P.PNINT_ITS ---
Progress Note: A&P Assessment and Plan (1) Hypoxic respiratory failure: Code(s): J96.91 - Respiratory failure, unspecified with hypoxia Status: Acute Assessment and Plan: Acute hypoxic respiratory failure: Likely related to pneumonia versus moderate pleural effusions bilaterally -hypoxic respiratory failure on ABG down 02/18, as patient was tachypneic, short of breath, decreased O2 sats. PH was 7.13/23/58/7.8/82% -02/18: Intubated in the ICU by ER physician -currently on CMV mode of ventilation, peep of 5, 35% FiO2. -ABGs and chest x-ray/CT chest reviewed: Ventilator adjusted, decrease tidal volume, decreased rate -added DuoNebs -started on vancomycin and meropenem, discontinue ceftriaxone -02/19: Blood cultures , preliminary report shows no growth x2 -02/18: Sputum cultures, no growth -sedated with propofol and Versed infusion, maintain RASS of 0 to -1, have asked the bedside RN to decrease the sedation to evaluate neurological status (2) Pneumonia: Code(s): J18.9 - Pneumonia, unspecified organism Status: Acute Assessment and Plan: As above (3) Adenocarcinoma of left lung, stage 4: Code(s): C34.92 - Malignant neoplasm of unspecified part of left bronchus or lung Status: Chronic Assessment and Plan: Follows with Dr. Acosta (oncologist) patient has been on Keytruda -Mets to bone and brain (4) Acute kidney injury superimposed on CKD: Code(s): N17.9 - Acute kidney failure, unspecified; N18.9 - Chronic kidney disease, uns pecified Status: Acute Assessment and Plan: Patient presented with acute kidney injury on 02/16/2025 likely secondary to diarrhea. Creatinine on admission was 9.00 -adequately fluid-resuscitated -non-anion gap metabolic acidosis secondary to diarrhea -creatinine is 1.20 this morning -urine output has been adequate -nephrology following the patient -continue to monitor renal function, electrolytes and urine out (5) Diarrhea: Qualifiers: Diarrhea type: presumed infectious Qualified Code(s): R19.7 - Diarrhea, unspecified Code(s): R19.7 - Diarrhea, unspecified Status: Acute Assessment and Plan: GI following the patient for diarrhea -02/16: C diff was negative -patient started on cholestyramine -diarrhea has improved -02/18: Stool culture for E coli, Shiga toxin is negative, Campylobacter is negative, salmonella and Shigella cultures are pending (6) Electrolyte abnormality: Code(s): E87.8 - Other disorders of electrolyte and fluid balance, not elsewhere classified Status: Acute Assessment and Plan: Will will replace potassium, phosphorus and calcium (7) Anemia: Code(s): D64.9 - Anemia, unspecified Status: Acute Assessment and Plan: Patient has dropped hemoglobin from 12.8 on 02/16/2025 to 7.8 this morning -increase PPI to q.12 hours -GI following the patient -history of iron deficiency anemia on ferrous sulfate, will continue -02/20: Patient dropped hemoglobin to 6.6 this morning, will transfuse 1 unit of packed RBCs, lactic acid likely related to anemia. -hold heparin subQ. Will place SCDs (8) Cardiomyopathy: Code(s): I42.9 - Cardiomyopathy, unspecified Status: Acute Assessment and Plan: Unknown if this is new onset cardiomyopathy -also mild pulmonary hypertension -will consult Cardiology 02/19: Echocardiogram Summary 1. Left ventricular chamber dimension is moderately enlarged. 2. Left ventricular systolic function is severely globally reduced, estimated at 20-25. The small basal segments appear to be spared which could suggest Takotsubo cardiomyopathy. 3. The left ventricular diastolic function is grade I diastolic dysfunction. 4. E/e' 14 is mildly elevated. 5. There is trace aortic valve regurgitation. 6. There is mild mitral valve regurgitation. 7. There is mild tricuspid valve regurgitation. 8. Mild pulmonary hypertension, estimated pulmonary arterial systolic pressure is 43 mmHg. 9. Dilated inferior vena cava with >50% collapse upon inspiration consistent with elevated right atrial pressure, 10 mmHg. Plan DVT prophylaxis: Will hold heparin subQ due to anemia, place SCDs Stress ulcer prophylaxis: Protonix IV q.12 hours Nutrition: Tolerating tube feed Code Status: Full code Critical Care Time Spent: 33 minutes Discussed with patient's family at bedside and in rounds and updated them with patient's condition and plan of care. I answered all the question. OFF NOTE: Patient was supposed to go on hospice today on 02/19/2025 but DNR was rescinded on 02/18/2025 prior to intubation Due to a high probability of clinically significant, life threatening deterioration, the patient required my highest level of preparedness to intervene emergently and I personally spent this critical care time directly and personally managing the patient. This critical care time included obtaining a history; examining the patient; pulse oximetry; ordering and review of studies; arranging urgent treatment with development of a management plan; evaluation of patient's response to treatment; frequent reassessment; and discussions with other providers. It was exclusive of separately billable procedures and treating other patients and teaching time. Please see Assessment and Plan section and the rest of the note for further information on patient assessment and treatment This dictation may have been done utilizing a voice recognition system. Attempts have been made to correct errors. However, there may be uncorrected grammatical, spelling, and recognitions errors present. Subjective Date/time seen: 02/20/25 08:09 Interval history: Reason for consult: Acute respiratory failure and mechanical ventilation, hypoxia on ABG, pneumonia, diarrhea, anemia, cardiomyopathy 02/20/2025: Patient seen and examined the ICU, remains intubated, on CMV mode of ventilation, peep of 5, 30% FiO2. Sedated with propofol and Versed infusion, does not open eyes or follow simple commands. Hemodynamically stable, urine output has been adequate. Afebrile. Dropped hemoglobin to 6.6 this morning. Review of Systems Review of Systems: ROS unobtainable: Yes unobtainable due to endotracheal tube, unobtainable due to medical condition and unobtainable due to mental status Exam Narrative: General: Intubated and sedated, in no acute distress HEENT:? Pupils are equal and reactive, sclerae is clear Neck:? Supple Respiratory:? Coarse breath sounds right greater than left, adequate air entry, no wheezing Cardiac:? S1-S2 is normal, regular rate and rhythm Abdomen:? Soft, nontender, nondistended, hypoactive bowel sounds Extremities:? Bilateral upper extremity edema right greater than left, trace edema bilateral lower extremities Neuro:? Intubated and sedated, does not open her eyes or follow simple commands Skin:? No skin lesions noted Psych:? Unable to assess at this time Objective Data Vital Signs Vital Signs: Vital Signs - 24 hr 02/19/25 08:22 02/19/25 09:15 02/19/25 09:25 Temperature Pulse Rate 78 84 85 Respiratory Rate 16 15 18 Blood Pressure Pulse Oximetry Oxygen Delivery Fraction of Inspired Oxygen 02/19/25 09:25 02/19/25 09:31 02/19/25 09:32 Temperature Pulse Rate 85 80 80 Respiratory Rate 18 20 Blood Pressure Pulse Oximetry 100 Oxygen Delivery Mechanical Ventilation Fraction of Inspired Oxygen 30 02/19/25 10:00 02/19/25 10:00 02/19/25 10:00 Temperature 97.3 F L Pulse Rate 86 86 85 Respiratory Rate 17 18 Blood Pressure 100/69 Pulse Oximetry 100 Oxygen Delivery Fraction of Inspired Oxygen 02/19/25 10:26 02/19/25 11:17 02/19/25 11:30 Temperature Pulse Rate 87 91 93 Respiratory Rate 18 17 18 Blood Pressure Pulse Oximetry 100 96 Oxygen Delivery Mechanical Ventilation Mechanical Ventilation Fraction of Inspired Oxygen 30 30 02/19/25 11:50 02/19/25 12:00 02/19/25 12:00 Temperature 97.3 F L Pulse Rate 83 82 85 Respiratory Rate 18 18 Blood Pressure 92/65 L Pulse Oximetry 100 100 Oxygen Delivery Mechanical Ventilation Fraction of Inspired Oxygen 30 02/19/25 12:00 02/19/25 12:00 02/19/25 12:26 Temperature Pulse Rate 83 88 Respiratory Rate 23 H Blood Pressure Pulse Oximetry Oxygen Delivery Fraction of Inspired Oxygen 30 02/19/25 13:40 02/19/25 13:43 02/19/25 13:57 Temperature Pulse Rate 83 84 84 Respiratory Rate 19 19 17 Blood Pressure Pulse Oximetry Oxygen Delivery Fraction of Inspired Oxygen 02/19/25 14:00 02/19/25 14:00 02/19/25 14:00 Temperature 97.8 F Pulse Rate 87 85 85 Respiratory Rate 18 20 Blood Pressure 100/71 Pulse Oximetry 100 Oxygen Delivery Fraction of Inspired Oxygen 02/19/25 14:16 02/19/25 14:17 02/19/25 14:33 Temperature Pulse Rate 82 82 70 Respiratory Rate 20 20 17 Blood Pressure Pulse Oximetry Oxygen Delivery Fraction of Inspired Oxygen 02/19/25 14:33 02/19/25 14:39 02/19/25 14:43 Temperature Pulse Rate 70 72 88 Respiratory Rate 20 16 Blood Pressure Pulse Oximetry 100 Oxygen Delivery Mechanical Ventilation Fraction of Inspired Oxygen 30 02/19/25 14:44 02/19/25 14:48 02/19/25 15:16 Temperature Pulse Rate 72 75 79 Respiratory Rate 16 16 16 Blood Pressure Pulse Oximetry Oxygen Delivery Fraction of Inspired Oxygen 02/19/25 15:16 02/19/25 15:40 02/19/25 16:00 Temperature Pulse Rate 79 78 82 Respiratory Rate 16 16 16 Blood Pressure Pulse Oximetry 100 Oxygen Delivery Mechanical Ventilation Fraction of Inspired Oxygen 30 02/19/25 16:00 02/19/25 16:00 02/19/25 16:00 Temperature 97.7 F Pulse Rate 79 81 Respiratory Rate 16 16 Blood Pressure 90/59 L Pulse Oximetry 100 Oxygen Delivery Fraction of Inspired Oxygen 30 02/19/25 16:00 02/19/25 16:14 02/19/25 17:23 Temperature Pulse Rate 84 94 80 Respiratory Rate 19 Blood Pressure Pulse Oximetry 100 Oxygen Delivery Mechanical Ventilation Fraction of Inspired Oxygen 30 02/19/25 18:00 02/19/25 18:00 02/19/25 18:00 Temperature Pulse Rate 74 75 74 Respiratory Rate 16 16 Blood Pressure Pulse Oximetry Oxygen Delivery Fraction of Inspired Oxygen 02/19/25 18:00 02/19/25 18:23 02/19/25 18:25 Temperature 98.1 F Pulse Rate 74 74 75 Respiratory Rate 16 16 16 Blood Pressure 90/58 L Pulse Oximetry 100 Oxygen Delivery Fraction of Inspired Oxygen 02/19/25 20:00 02/19/25 20:00 02/19/25 20:00 Temperature 98.6 F Pulse Rate 69 69 69 Respiratory Rate 14 14 14 Blood Pressure 96/61 L Pulse Oximetry 100 Oxygen Delivery Fraction of Inspired Oxygen 02/19/25 20:00 02/19/25 20:00 02/19/25 20:00 Temperature Pulse Rate 69 70 Respiratory Rate 14 Blood Pressure Pulse Oximetry 100 Oxygen Delivery Mechanical Ventilation Fraction of Inspired Oxygen 30 30 02/19/25 20:20 02/19/25 20:34 02/19/25 20:34 Temperature Pulse Rate 68 68 70 Respiratory Rate 16 16 Blood Pressure Pulse Oximetry 100 Oxygen Delivery Mechanical Ventilation Fraction of Inspired Oxygen 30 02/19/25 22:00 02/19/25 22:00 02/19/25 22:00 Temperature 98.9 F Pulse Rate 101 H 101 H 101 H Respiratory Rate 17 17 17 Blood Pressure 95/62 L Pulse Oximetry 100 Oxygen Delivery Fraction of Inspired Oxygen 02/19/25 22:00 02/19/25 23:20 02/20/25 00:00 Temperature Pulse Rate 101 H 81 77 Respiratory Rate Blood Pressure Pulse Oximetry 100 Oxygen Delivery Mechanical Ventilation Fraction of Inspired Oxygen 30 02/20/25 00:00 02/20/25 00:00 02/20/25 00:00 Temperature 99 F Pulse Rate 76 76 Respiratory Rate 16 16 Blood Pressure 105/66 Pulse Oximetry 100 Oxygen Delivery Fraction of Inspired Oxygen 30 02/20/25 00:00 02/20/25 00:00 02/20/25 02:00 Temperature Pulse Rate 76 76 70 Respiratory Rate 16 16 Blood Pressure Pulse Oximetry 100 Oxygen Delivery Mechanical Ventilation Fraction of Inspired Oxygen 30 02/20/25 02:00 02/20/25 02:00 02/20/25 02:00 Temperature 98.7 F Pulse Rate 70 70 70 Respiratory Rate 16 16 16 Blood Pressure 123/75 Pulse Oximetry 100 Oxygen Delivery Fraction of Inspired Oxygen 02/20/25 02:00 02/20/25 02:01 02/20/25 02:10 Temperature Pulse Rate 71 71 72 Respiratory Rate 16 16 Blood Pressure Pulse Oximetry 100 Oxygen Delivery Mechanical Ventilation Fraction of Inspired Oxygen 30 02/20/25 03:29 02/20/25 03:29 02/20/25 04:00 Temperature 98.3 F Pulse Rate 90 90 85 Respiratory Rate 17 17 17 Blood Pressure 113/68 Pulse Oximetry 100 Oxygen Delivery Fraction of Inspired Oxygen 02/20/25 04:00 02/20/25 04:00 02/20/25 04:00 Temperature Pulse Rate 85 85 Respiratory Rate 17 17 Blood Pressure Pulse Oximetry Oxygen Delivery Fraction of Inspired Oxygen 30 02/20/25 04:00 02/20/25 04:00 02/20/25 05:08 Temperature Pulse Rate 85 84 83 Respiratory Rate 16 17 Blood Pressure Pulse Oximetry 100 Oxygen Delivery Mechanical Ventilation Fraction of Inspired Oxygen 30 02/20/25 05:08 02/20/25 05:10 02/20/25 06:00 Temperature Pulse Rate 83 83 72 Respiratory Rate 17 Blood Pressure Pulse Oximetry 100 Oxygen Delivery Mechanical Ventilation Fraction of Inspired Oxygen 30 02/20/25 06:00 02/20/25 06:00 02/20/25 06:00 Temperature 97.9 F Pulse Rate 72 72 72 Respiratory Rate 18 18 18 Blood Pressure 122/79 Pulse Oximetry 100 Oxygen Delivery Fraction of Inspired Oxygen 02/20/25 07:38 02/20/25 07:42 02/20/25 07:45 Temperature Pulse Rate 74 76 75 Respiratory Rate 14 21 H Blood Pressure Pulse Oximetry 100 Oxygen Delivery Mechanical Ventilation Fraction of Inspired Oxygen 30 02/20/25 07:53 02/20/25 08:00 02/20/25 08:00 Temperature 97.9 F 97.8 F 97.8 F Pulse Rate 84 88 87 Respiratory Rate 14 14 14 Blood Pressure 115/71 111/67 111/67 Pulse Oximetry 100 98 98 Oxygen Delivery Fraction of Inspired Oxygen Intake/Output Intake/Output: Intake & Output 02/17/25 02/18/25 02/19/25 02/20/25 23:59 23:59 23:59 23:59 Intake Total 4443.8 667.2 4155.0 920.6 Output Total 2201 1600 1850 800 Balance 2242.8 -932.8 2305.0 120.6 Meds/Results Medications: Active Medications Generic Name Dose Route Start Last Admin Trade Name Freq PRN Reason Stop Dose Admin Acetaminophen 650 mg 02/16/25 14:42 Acetaminophen 325 Mg Tablet PO Q4H PRN Mild Pain (1-3) or Fever Hydrocodone Bitart/Acetaminophen 1 tab 02/16/25 22:21 Hydrocodone/Acetaminophen (*Crx) 5-325 Mg Tablet PO Q12H PRN Pain Rated 4-6 Albuterol/Ipratropium 3 ml 02/19/25 08:00 02/20/25 07:35 Ipratropium 0.5 Mg/Albuterol Sulfate 2.5 Mg Ampul.Neb 3 Ml INHALATION 3 ml Q6HRT [facility] Administration Calcium Carbonate 500 mg 02/17/25 09:00 02/18/25 18:52 Calcium Carbonate (Oscal) 500 Mg Tablet PO Not Given BID [facility] Cholestyramine Resin 4 gm 02/17/25 18:00 02/19/25 17:11 Cholestyramine Light 4 Gm Powd.Pack PO 4 gm BID@1000,1800 [facility] Administration Dexamethasone 4 mg 02/20/25 09:00 Dexamethasone 4 Mg Tablet PO DAILY [facility] Ferrous Sulfate 325 mg 02/20/25 09:00 Ferrous Sulfate [address] BY MOUTH BID [facility] Folic Acid 1 mg 02/17/25 09:00 02/19/25 09:26 Folic Acid 1 Mg Tablet PO 1 mg DAILY [facility] Administration Heparin Sodium (Beef Lung) 50 units 02/19/25 09:00 02/19/25 09:27 Heparin Flush 50 Units/5 Ml Syringe IV PUSH Not Given QAM [facility] Heparin Sodium (Beef Lung) 50 units 02/18/25 19:00 Heparin Flush 50 Units/5 Ml Syringe IV PUSH PRN PRN after intermittent infusion Heparin Sodium (Beef Lung) 50 units 02/18/25 19:00 Heparin Flush 50 Units/5 Ml Syringe IV PUSH PRN PRN after blood draws Heparin Sodium (Porcine) 500 units 02/18/25 19:00 Heparin Sodium Lock Flush 500 Units/5 Ml Syringe IV PUSH PRN PRN see comments below Meropenem 1 gm in 100 mls @ 200 mls/hr 02/18/25 19:00 02/20/25 06:10 IVPB 200 mls/hr Q12H [facility] Administration Propofol 100 mls @ 10.836 mls/hr 02/18/25 18:45 02/20/25 06:00 Diprivan IV CONT 30 mcg/kg/min .Q9H14M [facility] 10.84 mls/hr Titration Protocol 30 MCG/KG/MIN Midazolam HCl 100 mg in 100 mls @ 5 mls/hr 02/19/25 13:35 02/20/25 07:45 Versed 100 Mg/Ns 100 Ml IV CONT 4 mg/hr .Q20H [facility] 4 mls/hr Titration Protocol 5 MG/HR Potassium Chloride 100 mls @ 25 mls/hr 02/20/25 05:30 02/20/25 05:58 Kcl 40 Meq/Water 100 Ml IVPB 02/20/25 09:29 25 mls/hr ONCE ONE Administration Sodium Chloride 250 mls @ 30 mls/hr 02/20/25 05:35 Normal Saline Iv IV CONT 02/20/25 13:54 .Q8H20M STA Calcium Gluconate 2,000 mg in 100 mls @ 100 mls/hr 02/20/25 08:00 Calcium Gluc 2,000 Mg/Ns 100ml IVPB 02/20/25 08:59 ONCE ONE Loperamide HCl 2 mg 02/17/25 00:04 02/18/25 15:38 Loperamide Hcl 2 Mg Capsule PO 2 mg TID PRN Administration Diarrhea Melatonin 10 mg 02/18/25 21:00 Melatonin 5 Mg Tablet PO [facility] Miscellaneous Information 1 each 02/20/25 00:01 02/19/25 19:36 Please Renew Propofol_. Per [employer] Procedure, It Will Discontinue If Not Renewed XX 03/22/25 00:00 1 each CLARIFY [facility] Administration Multi-Ingred Cream/Lotion/Oil/Oint 1 applic 02/18/25 21:00 02/19/25 20:17 Mineral Oil/White Petrolatum Ointment EACH EYE 1 applic Q12HR [facility] Administration Nitroglycerin 0.4 mg 02/18/25 16:44 02/18/25 17:15 Nitroglycerin Sl 0.4 Mg Tablet SUBLINGUAL 0.4 mg Q5MIN PRN Administration Chest Pain Ondansetron HCl 4 mg 02/16/25 14:42 Ondansetron Inj 4 Mg/2 Ml Vial IV PUSH Q4H PRN Nausea Pantoprazole Sodium 40 mg 02/19/25 21:00 02/19/25 20:17 Pantoprazole Sodium Iv 40 Mg Vial IV PUSH 40 mg Q12HR [facility] Administration Sodium Chloride 10 ml 02/18/25 22:00 02/20/25 06:16 Central Line Flush IV PUSH 10 ml Q8HR [facility] Administration Sodium Chloride 10 ml 02/19/25 14:00 02/20/25 06:16 Central Line Flush IV PUSH 10 ml Q8HR [facility] Administration Sodium Chloride 10 ml 02/19/25 10:47 Central Line Flush IV PUSH PRN PRN with TPN bag changes Sodium Chloride 20 ml 02/19/25 10:47 Central Line Flush IV PUSH PRN PRN after blood draws Vancomycin HCl 1 each 02/18/25 19:15 Vancomycin For Acute Kidney Injury IVPB PRN PRN Vancomycin Protocol Radiology Results: ITS Impressions Renal Ultrasound 02/17/25 08:54 IMPRESSION: 1. Normal kidneys without hydronephrosis. Abdomen X-Ray 02/18/25 19:29 IMPRESSION: Orogastric tube in good position and ready for immediate use. Head CT 02/19/25 09:07 IMPRESSION: No acute intracranial findings. Chest/Abdomen/Pelvis CT 02/19/25 09:17 IMPRESSION: CHEST: 1. Bilateral moderate pleural effusion with adjacent atelectasis versus pneumonia. 2. Trace of pericardial effusion. 3. Sclerotic changes in the superior endplate of T1. MRI evaluation to exclude acute fracture. ABDOMEN/PELVIS: 1. No evidence of appendicitis, diverticulitis or intestinal obstruction. No kidney stones. Chest X-Ray 02/20/25 07:09 IMPRESSION: 1. Opacities in bilateral lower lung zones which could represent atelectasis and/or pneumonia with improvement on the right and worsening on the left. 2. Lines and tubes in expected position. Labs Labs: Laboratory Results - last 24 hr 02/19/25 02/19/25 02/19/25 08:20 12:19 17:21 WBC RBC Hgb Hct MCV MCH MCHC RDW Plt Count MPV Immature Gran % (Auto) Neut % (Auto) Lymph % (Auto) [place] % (Auto) Eos % (Auto) Baso % (Auto) Lymph # (Auto) [place] # (Auto) Eos # (Auto) Baso # (Auto) Abs Immat Gran (auto) Absolute Neuts (auto) Absolute Nucleated RBC Nucleated RBC % Puncture Site ABG pH ABG pCO2 ABG pO2 ABG PO2/FiO2 Ratio ABG HCO3 ABG O2 Saturation ABG O2 Content ABG Base Excess A-a Gradient Oxyhemoglobin Carboxyhemoglobin Methemoglobin Reduced Hemoglobin Total Hemoglobin O2 Delivery Device O2 Liters/Min Minute Volume Vent Rate Vent Mode FiO2 Tidal Volume PEEP Peak Inspir Pressure Pressure Support Sodium Potassium Chloride Carbon Dioxide Anion Gap BUN Creatinine Estim Creat Clear Calc Estimated GFR Glucose POC Capillary Glucose 149 H 146 H Lactic Acid Calcium Phosphorus Magnesium Total Bilirubin AST ALT Alkaline Phosphatase Troponin I 1.530 H* Total Protein Albumin Random Vancomycin Blood Type Antibody Screen Crossmatch 02/19/25 02/20/25 02/20/25 20:15 00:12 04:13 WBC 14.0 H RBC 2.12 L Hgb 6.6 L* Hct 19.8 L* MCV 93.4 MCH 31.1 MCHC 33.3 RDW 15.6 H Plt Count 195 MPV 9.5 Immature Gran % (Auto) 8.4 H Neut % (Auto) 77.2 H Lymph % (Auto) 6.2 L [place] % (Auto) 8.0 Eos % (Auto) 0.1 Baso % (Auto) 0.1 L Lymph # (Auto) 0.87 L [place] # (Auto) 1.1 H Eos # (Auto) 0.0 Baso # (Auto) 0.0 Abs Immat Gran (auto) 1.17 H Absolute Neuts (auto) 10.8 H Absolute Nucleated RBC 0.000 Nucleated RBC % 0.0 Puncture Site ABG pH ABG pCO2 ABG pO2 ABG PO2/FiO2 Ratio ABG HCO3 ABG O2 Saturation ABG O2 Content ABG Base Excess A-a Gradient Oxyhemoglobin Carboxyhemoglobin Methemoglobin Reduced Hemoglobin Total Hemoglobin O2 Delivery Device O2 Liters/Min Minute Volume Vent Rate Vent Mode FiO2 Tidal Volume PEEP Peak Inspir Pressure Pressure Support Sodium 139 Potassium 2.5 L* Chloride 102 Carbon Dioxide 25 Anion Gap 12 BUN 14 D Creatinine 1.20 H Estim Creat Clear Calc 31 Estimated GFR 45 L Glucose 126 H POC Capillary Glucose 133 H Lactic Acid 3.3 H Calcium 6.9 L Phosphorus 1.5 L Magnesium 2.1 Total Bilirubin < 0.1 L AST 31 ALT 18 Alkaline Phosphatase 101 Troponin I Total Protein 5.7 L Albumin 3.9 Random Vancomycin 8.0 L Blood Type Antibody Screen Crossmatch 02/20/25 02/20/25 05:06 05:48 WBC RBC Hgb Hct MCV MCH MCHC RDW Plt Count MPV Immature Gran % (Auto) Neut % (Auto) Lymph % (Auto) [place] % (Auto) Eos % (Auto) Baso % (Auto) Lymph # (Auto) [place] # (Auto) Eos # (Auto) Baso # (Auto) Abs Immat Gran (auto) Absolute Neuts (auto) Absolute Nucleated RBC Nucleated RBC % Puncture Site Right radial ABG pH 7.495 H ABG pCO2 34.9 L ABG pO2 101.1 H ABG PO2/FiO2 Ratio 3.37 ABG HCO3 26.3 H ABG O2 Saturation 98.1 ABG O2 Content 9.7 L ABG Base Excess 2.9 A-a Gradient 71.8 Oxyhemoglobin 96.9 Carboxyhemoglobin 0.7 Methemoglobin 0.1 Reduced Hemoglobin 2.3 Total Hemoglobin 7.0 L* O2 Delivery Device Ventilator O2 Liters/Min Not Reportable Minute Volume Not Reportable Vent Rate 16 Vent Mode Cmv FiO2 30 Tidal Volume 350 PEEP 5 Peak Inspir Pressure Not Reportable Pressure Support Not Reportable Sodium Potassium Chloride Carbon Dioxide Anion Gap BUN Creatinine Estim Creat Clear Calc Estimated GFR Glucose POC Capillary Glucose Lactic Acid Calcium Phosphorus Magnesium Total Bilirubin AST ALT Alkaline Phosphatase Troponin I Total Protein Albumin Random Vancomycin Blood Type B Positive Antibody Screen Negative Crossmatch See Detail Quality VTE Prophylaxis VTE prophylaxis: pharmacologic ordered
[2025-02-20] MEDS: SODIUM CHLORIDE 0.9% IV 250 ML 30 ML IV CONT (08:28)
[2025-02-20] MEDS: PANTOPRAZOLE SODIUM IV 40 MG VIAL IV PUSH ×2 (08:53→20:30)
[2025-02-20] MEDS: FERROUS SULFATE 325 MG TABLET DR BY MOUTH ×2 (08:54→16:33)
[2025-02-20] MEDS: FOLIC ACID 1 MG TABLET PO (08:54)
[2025-02-20] MEDS: MINERAL OIL/WHITE PETROLATUM OINTMENT 1 APPLIC EACH EYE ×2 (08:54→20:30)
--- NOTE | 2025-02-20 09:10 | P.PNGI_ITS ---
Progress Note: A&P Assessment and Plan (1) Diarrhea: Qualifiers: Diarrhea type: presumed infectious Qualified Code(s): R19.7 - Diarrhea, unspecified Code(s): R19.7 - Diarrhea, unspecified Status: Acute Assessment and Plan: The patient continues to be intubated and is currently in the ICU. Oral feedings, delivered through an orogastric tube, have been started, and she's almost reached her target nutritional intake. However, she hasn't had any bowel movements. She received Cholestyramine 4g twice daily, which seems to be effectively decreasing stool output. We are signing off for now, but please don't hesitate to reach out for any recurrence of diarrhea or other issues pertaining to our specialty. Subjective Date/time seen: 02/20/25 09:10 Objective Data Vital Signs Vital Signs: Vital Signs - 24 hr 02/19/25 09:15 02/19/25 09:25 02/19/25 09:25 Temperature Pulse Rate 84 85 85 Respiratory Rate 15 18 18 Blood Pressure Pulse Oximetry Oxygen Delivery Fraction of Inspired Oxygen 02/19/25 09:31 02/19/25 09:32 02/19/25 10:00 Temperature 97.3 F L Pulse Rate 80 80 86 Respiratory Rate 20 17 Blood Pressure 100/69 Pulse Oximetry 100 100 Oxygen Delivery Mechanical Ventilation Fraction of Inspired Oxygen 02/19/25 10:00 02/19/25 10:00 02/19/25 10:26 Temperature Pulse Rate 86 85 87 Respiratory Rate 18 18 Blood Pressure Pulse Oximetry 100 Oxygen Delivery Mechanical Ventilation Fraction of Inspired Oxygen 30 02/19/25 11:17 02/19/25 11:30 02/19/25 11:50 Temperature Pulse Rate 91 93 83 Respiratory Rate 17 18 Blood Pressure Pulse Oximetry 96 100 Oxygen Delivery Mechanical Ventilation Mechanical Ventilation Fraction of Inspired Oxygen 30 02/19/25 12:00 02/19/25 12:00 02/19/25 12:00 Temperature 97.3 F L Pulse Rate 82 85 Respiratory Rate 18 18 Blood Pressure 92/65 L Pulse Oximetry 100 Oxygen Delivery Fraction of Inspired Oxygen 30 02/19/25 12:00 02/19/25 12:26 02/19/25 13:40 Temperature Pulse Rate 83 88 83 Respiratory Rate 23 H 19 Blood Pressure Pulse Oximetry Oxygen Delivery Fraction of Inspired Oxygen 02/19/25 13:43 02/19/25 13:57 02/19/25 14:00 Temperature Pulse Rate 84 84 87 Respiratory Rate 19 17 18 Blood Pressure Pulse Oximetry Oxygen Delivery Fraction of Inspired Oxygen 02/19/25 14:00 02/19/25 14:00 02/19/25 14:16 Temperature 97.8 F Pulse Rate 85 85 82 Respiratory Rate 20 20 Blood Pressure 100/71 Pulse Oximetry 100 Oxygen Delivery Fraction of Inspired Oxygen 02/19/25 14:17 02/19/25 14:33 02/19/25 14:33 Temperature Pulse Rate 82 70 70 Respiratory Rate 20 17 20 Blood Pressure Pulse Oximetry Oxygen Delivery Fraction of Inspired Oxygen 02/19/25 14:39 02/19/25 14:43 02/19/25 14:44 Temperature Pulse Rate 72 88 72 Respiratory Rate 16 16 Blood Pressure Pulse Oximetry 100 Oxygen Delivery Mechanical Ventilation Fraction of Inspired Oxygen 30 02/19/25 14:48 02/19/25 15:16 02/19/25 15:16 Temperature Pulse Rate 75 79 79 Respiratory Rate 16 16 16 Blood Pressure Pulse Oximetry Oxygen Delivery Fraction of Inspired Oxygen 02/19/25 15:40 02/19/25 16:00 02/19/25 16:00 Temperature Pulse Rate 78 82 79 Respiratory Rate 16 16 16 Blood Pressure Pulse Oximetry 100 Oxygen Delivery Mechanical Ventilation Fraction of Inspired Oxygen 30 02/19/25 16:00 02/19/25 16:00 02/19/25 16:00 Temperature 97.7 F Pulse Rate 81 84 Respiratory Rate 16 Blood Pressure 90/59 L Pulse Oximetry 100 Oxygen Delivery Fraction of Inspired Oxygen 30 02/19/25 16:14 02/19/25 17:23 02/19/25 18:00 Temperature Pulse Rate 94 80 74 Respiratory Rate 19 16 Blood Pressure Pulse Oximetry 100 Oxygen Delivery Mechanical Ventilation Fraction of Inspired Oxygen 30 02/19/25 18:00 02/19/25 18:00 02/19/25 18:00 Temperature 98.1 F Pulse Rate 75 74 74 Respiratory Rate 16 16 Blood Pressure 90/58 L Pulse Oximetry 100 Oxygen Delivery Fraction of Inspired Oxygen 02/19/25 18:23 02/19/25 18:25 02/19/25 20:00 Temperature Pulse Rate 74 75 69 Respiratory Rate 16 16 14 Blood Pressure Pulse Oximetry Oxygen Delivery Fraction of Inspired Oxygen 02/19/25 20:00 02/19/25 20:00 02/19/25 20:00 Temperature 98.6 F Pulse Rate 69 69 Respiratory Rate 14 14 Blood Pressure 96/61 L Pulse Oximetry 100 Oxygen Delivery Fraction of Inspired Oxygen 30 02/19/25 20:00 02/19/25 20:00 02/19/25 20:20 Temperature Pulse Rate 69 70 68 Respiratory Rate 14 Blood Pressure Pulse Oximetry 100 100 Oxygen Delivery Mechanical Ventilation Mechanical Ventilation Fraction of Inspired Oxygen 30 30 02/19/25 20:34 02/19/25 20:34 02/19/25 22:00 Temperature 98.9 F Pulse Rate 68 70 101 H Respiratory Rate 16 16 17 Blood Pressure 95/62 L Pulse Oximetry 100 Oxygen Delivery Fraction of Inspired Oxygen 02/19/25 22:00 02/19/25 22:00 02/19/25 22:00 Temperature Pulse Rate 101 H 101 H 101 H Respiratory Rate 17 17 Blood Pressure Pulse Oximetry Oxygen Delivery Fraction of Inspired Oxygen 02/19/25 23:20 02/20/25 00:00 02/20/25 00:00 Temperature 99 F Pulse Rate 81 77 76 Respiratory Rate 16 Blood Pressure 105/66 Pulse Oximetry 100 100 Oxygen Delivery Mechanical Ventilation Fraction of Inspired Oxygen 30 02/20/25 00:00 02/20/25 00:00 02/20/25 00:00 Temperature Pulse Rate 76 76 Respiratory Rate 16 16 Blood Pressure Pulse Oximetry Oxygen Delivery Fraction of Inspired Oxygen 30 02/20/25 00:00 02/20/25 02:00 02/20/25 02:00 Temperature 98.7 F Pulse Rate 76 70 70 Respiratory Rate 16 16 Blood Pressure 123/75 Pulse Oximetry 100 100 Oxygen Delivery Mechanical Ventilation Fraction of Inspired Oxygen 30 02/20/25 02:00 02/20/25 02:00 02/20/25 02:00 Temperature Pulse Rate 70 70 71 Respiratory Rate 16 16 Blood Pressure Pulse Oximetry 100 Oxygen Delivery Mechanical Ventilation Fraction of Inspired Oxygen 30 02/20/25 02:01 02/20/25 02:10 02/20/25 03:29 Temperature Pulse Rate 71 72 90 Respiratory Rate 16 16 17 Blood Pressure Pulse Oximetry Oxygen Delivery Fraction of Inspired Oxygen 02/20/25 03:29 02/20/25 04:00 02/20/25 04:00 Temperature 98.3 F Pulse Rate 90 85 Respiratory Rate 17 17 Blood Pressure 113/68 Pulse Oximetry 100 Oxygen Delivery Fraction of Inspired Oxygen 30 02/20/25 04:00 02/20/25 04:00 02/20/25 04:00 Temperature Pulse Rate 85 85 85 Respiratory Rate 17 17 16 Blood Pressure Pulse Oximetry 100 Oxygen Delivery Mechanical Ventilation Fraction of Inspired Oxygen 30 02/20/25 04:00 02/20/25 05:08 02/20/25 05:08 Temperature Pulse Rate 84 83 83 Respiratory Rate 17 17 Blood Pressure Pulse Oximetry Oxygen Delivery Fraction of Inspired Oxygen 02/20/25 05:10 02/20/25 06:00 02/20/25 06:00 Temperature 97.9 F Pulse Rate 83 72 72 Respiratory Rate 18 Blood Pressure 122/79 Pulse Oximetry 100 100 Oxygen Delivery Mechanical Ventilation Fraction of Inspired Oxygen 30 02/20/25 06:00 02/20/25 06:00 02/20/25 07:38 Temperature Pulse Rate 72 72 74 Respiratory Rate 18 18 Blood Pressure Pulse Oximetry 100 Oxygen Delivery Mechanical Ventilation Fraction of Inspired Oxygen 30 02/20/25 07:42 02/20/25 07:45 02/20/25 07:53 Temperature 97.9 F Pulse Rate 76 75 84 Respiratory Rate 14 21 H 14 Blood Pressure 115/71 Pulse Oximetry 100 Oxygen Delivery Fraction of Inspired Oxygen 02/20/25 08:00 02/20/25 08:00 02/20/25 08:00 Temperature 97.8 F 97.8 F Pulse Rate 88 87 93 Respiratory Rate 14 14 14 Blood Pressure 111/67 111/67 Pulse Oximetry 98 98 Oxygen Delivery Fraction of Inspired Oxygen 02/20/25 08:00 02/20/25 08:00 02/20/25 08:00 Temperature Pulse Rate 90 Respiratory Rate 14 Blood Pressure Pulse Oximetry 99 Oxygen Delivery Mechanical Ventilation Fraction of Inspired Oxygen 30 30 02/20/25 08:00 02/20/25 08:09 Temperature 97.7 F Pulse Rate 89 90 Respiratory Rate 14 Blood Pressure 106/64 Pulse Oximetry 99 Oxygen Delivery Fraction of Inspired Oxygen Intake/Output Intake/Output: Intake & Output 02/17/25 02/18/25 02/19/25 02/20/25 23:59 23:59 23:59 23:59 Intake Total 4443.8 667.2 4155.0 943.3 Output Total 2201 1600 1850 800 Balance 2242.8 -932.8 2305.0 143.3 Meds/Results Medications: Active Medications Generic Name Dose Route Start Last Admin Trade Name Freq PRN Reason Stop Dose Admin Acetaminophen 650 mg 02/16/25 14:42 Acetaminophen 325 Mg Tablet PO Q4H PRN Mild Pain (1-3) or Fever Hydrocodone Bitart/Acetaminophen 1 tab 02/16/25 22:21 Hydrocodone/Acetaminophen (*Crx) 5-325 Mg Tablet PO Q12H PRN Pain Rated 4-6 Albuterol/Ipratropium 3 ml 02/19/25 08:00 02/20/25 07:35 Ipratropium 0.5 Mg/Albuterol Sulfate 2.5 Mg Ampul.Neb 3 Ml INHALATION 3 ml Q6HRT [place] Administration Calcium Carbonate 500 mg 02/17/25 09:00 02/18/25 18:52 Calcium Carbonate (Oscal) 500 Mg Tablet PO Not Given BID LIS[facility] Cholestyramine Resin 4 gm 02/17/25 18:00 02/19/25 17:11 Cholestyramine Light 4 Gm Powd.Pack PO 4 gm BID@1000,1800 LIS[place]TE Administration Dexamethasone 4 mg 02/20/25 09:00 02/20/25 08:54 Dexamethasone 4 Mg Tablet PO 4 mg DAILY [place] Administration Ferrous Sulfate 325 mg 02/20/25 09:00 02/20/25 08:54 Ferrous Sulfate [address] BY MOUTH 325 mg BID [place] Administration Folic Acid 1 mg 02/17/25 09:00 02/20/25 08:54 Folic Acid 1 Mg Tablet PO 1 mg DAILY [place] Administration Heparin Sodium (Beef Lung) 50 units 02/19/25 09:00 02/19/25 09:27 Heparin Flush 50 Units/5 Ml Syringe IV PUSH Not Given QAM LIS[place]TE Heparin Sodium (Beef Lung) 50 units 02/18/25 19:00 Heparin Flush 50 Units/5 Ml Syringe IV PUSH PRN PRN after intermittent infusion Heparin Sodium (Beef Lung) 50 units 02/18/25 19:00 Heparin Flush 50 Units/5 Ml Syringe IV PUSH PRN PRN after blood draws Heparin Sodium (Porcine) 500 units 02/18/25 19:00 Heparin Sodium Lock Flush 500 Units/5 Ml Syringe IV PUSH PRN PRN see comments below Meropenem 1 gm in 100 mls @ 200 mls/hr 02/18/25 19:00 02/20/25 06:10 IVPB 200 mls/hr Q12H [place] Administration Propofol 100 mls @ 10.836 mls/hr 02/18/25 18:45 02/20/25 08:00 Diprivan IV CONT 30 mcg/kg/min .Q9H14M [place] 10.84 mls/hr Titration Protocol 30 MCG/KG/MIN Midazolam HCl 100 mg in 100 mls @ 4 mls/hr 02/19/25 13:35 02/20/25 08:00 Versed 100 Mg/Ns 100 Ml IV CONT 4 mg/hr .Q25H [place] 4 mls/hr Titration Protocol 4 MG/HR Potassium Chloride 100 mls @ 25 mls/hr 02/20/25 05:30 02/20/25 05:58 Kcl 40 Meq/Water 100 Ml IVPB 02/20/25 09:29 25 mls/hr ONCE ONE Administration Sodium Chloride 250 mls @ 30 mls/hr 02/20/25 05:35 02/20/25 08:28 Normal Saline Iv IV CONT 02/20/25 13:54 30 mls/hr .Q8H20M STA Administration Loperamide HCl 2 mg 02/17/25 00:04 02/18/25 15:38 Loperamide Hcl 2 Mg Capsule PO 2 mg TID PRN Administration Diarrhea Melatonin 10 mg 02/18/25 21:00 Melatonin 5 Mg Tablet PO HS [facility] Miscellaneous Information 1 each 02/20/25 00:01 02/19/25 19:36 Please Renew Propofol_. Per [employer] Procedure, It Will Discontinue If Not Renewed XX 03/22/25 00:00 1 each CLARIFY [place] Administration Multi-Ingred Cream/Lotion/Oil/Oint 1 applic 02/18/25 21:00 02/20/25 08:54 Mineral Oil/White Petrolatum Ointment EACH EYE 1 applic Q12HR [place] Administration Nitroglycerin 0.4 mg 02/18/25 16:44 02/18/25 17:15 Nitroglycerin Sl 0.4 Mg Tablet SUBLINGUAL 0.4 mg Q5MIN PRN Administration Chest Pain Ondansetron HCl 4 mg 02/16/25 14:42 Ondansetron Inj 4 Mg/2 Ml Vial IV PUSH Q4H PRN Nausea Pantoprazole Sodium 40 mg 02/19/25 21:00 02/20/25 08:53 Pantoprazole Sodium Iv 40 Mg Vial IV PUSH 40 mg Q12HR [place] Administration Sodium Chloride 10 ml 02/18/25 22:00 02/20/25 06:16 Central Line Flush IV PUSH 10 ml Q8HR [place] Administration Sodium Chloride 10 ml 02/19/25 14:00 02/20/25 06:16 Central Line Flush IV PUSH 10 ml Q8HR [place] Administration Sodium Chloride 10 ml 02/19/25 10:47 Central Line Flush IV PUSH PRN PRN with TPN bag changes Sodium Chloride 20 ml 02/19/25 10:47 Central Line Flush IV PUSH PRN PRN after blood draws Vancomycin HCl 1 each 02/18/25 19:15 Vancomycin For Acute Kidney Injury IVPB PRN PRN Vancomycin Protocol Radiology Results: ITS Impressions Renal Ultrasound 02/17/25 08:54 IMPRESSION: 1. Normal kidneys without hydronephrosis. Abdomen X-Ray 02/18/25 19:29 IMPRESSION: Orogastric tube in good position and ready for immediate use. Head CT 02/19/25 09:07 IMPRESSION: No acute intracranial findings. Chest/Abdomen/Pelvis CT 02/19/25 09:17 IMPRESSION: CHEST: 1. Bilateral moderate pleural effusion with adjacent atelectasis versus pneumonia. 2. Trace of pericardial effusion. 3. Sclerotic changes in the superior endplate of T1. MRI evaluation to exclude acute fracture. ABDOMEN/PELVIS: 1. No evidence of appendicitis, diverticulitis or intestinal obstruction. No kidney stones. Chest X-Ray 02/20/25 07:09 IMPRESSION: 1. Opacities in bilateral lower lung zones which could represent atelectasis and/or pneumonia with improvement on the right and worsening on the left. 2. Lines and tubes in expected position. Labs Labs: Laboratory Results - last 24 hr 02/19/25 02/19/25 02/19/25 12:19 17:21 20:15 WBC RBC Hgb Hct MCV MCH MCHC RDW Plt Count MPV Immature Gran % (Auto) Neut % (Auto) Lymph % (Auto) [place] % (Auto) Eos % (Auto) Baso % (Auto) Lymph # (Auto) [place] # (Auto) Eos # (Auto) Baso # (Auto) Abs Immat Gran (auto) Absolute Neuts (auto) Absolute Nucleated RBC Nucleated RBC % Puncture Site ABG pH ABG pCO2 ABG pO2 ABG PO2/FiO2 Ratio ABG HCO3 ABG O2 Saturation ABG O2 Content ABG Base Excess A-a Gradient Oxyhemoglobin Carboxyhemoglobin Methemoglobin Reduced Hemoglobin Total Hemoglobin O2 Delivery Device O2 Liters/Min Minute Volume Vent Rate Vent Mode FiO2 Tidal Volume PEEP Peak Inspir Pressure Pressure Support Sodium Potassium Chloride Carbon Dioxide Anion Gap BUN Creatinine Estim Creat Clear Calc Estimated GFR Glucose POC Capillary Glucose 149 H 146 H Lactic Acid Calcium Phosphorus Magnesium Total Bilirubin AST ALT Alkaline Phosphatase Total Protein Albumin Random Vancomycin 8.0 L Blood Type Antibody Screen Crossmatch 02/20/25 02/20/25 02/20/25 00:12 04:13 05:06 WBC 14.0 H RBC 2.12 L Hgb 6.6 L* Hct 19.8 L* MCV 93.4 MCH 31.1 MCHC 33.3 RDW 15.6 H Plt Count 195 MPV 9.5 Immature Gran % (Auto) 8.4 H Neut % (Auto) 77.2 H Lymph % (Auto) 6.2 L [place] % (Auto) 8.0 Eos % (Auto) 0.1 Baso % (Auto) 0.1 L Lymph # (Auto) 0.87 L [place] # (Auto) 1.1 H Eos # (Auto) 0.0 Baso # (Auto) 0.0 Abs Immat Gran (auto) 1.17 H Absolute Neuts (auto) 10.8 H Absolute Nucleated RBC 0.000 Nucleated RBC % 0.0 Puncture Site Right radial ABG pH 7.495 H ABG pCO2 34.9 L ABG pO2 101.1 H ABG PO2/FiO2 Ratio 3.37 ABG HCO3 26.3 H ABG O2 Saturation 98.1 ABG O2 Content 9.7 L ABG Base Excess 2.9 A-a Gradient 71.8 Oxyhemoglobin 96.9 Carboxyhemoglobin 0.7 Methemoglobin 0.1 Reduced Hemoglobin 2.3 Total Hemoglobin 7.0 L* O2 Delivery Device Ventilator O2 Liters/Min Not Reportable Minute Volume Not Reportable Vent Rate 16 Vent Mode Cmv FiO2 30 Tidal Volume 350 PEEP 5 Peak Inspir Pressure Not Reportable Pressure Support Not Reportable Sodium 139 Potassium 2.5 L* Chloride 102 Carbon Dioxide 25 Anion Gap 12 BUN 14 D Creatinine 1.20 H Estim Creat Clear Calc 31 Estimated GFR 45 L Glucose 126 H POC Capillary Glucose 133 H Lactic Acid 3.3 H Calcium 6.9 L Phosphorus 1.5 L Magnesium 2.1 Total Bilirubin < 0.1 L AST 31 ALT 18 Alkaline Phosphatase 101 Total Protein 5.7 L Albumin 3.9 Random Vancomycin Blood Type Antibody Screen Crossmatch 02/20/25 02/20/25 05:48 08:03 WBC RBC Hgb Hct MCV MCH MCHC RDW Plt Count MPV Immature Gran % (Auto) Neut % (Auto) Lymph % (Auto) [place] % (Auto) Eos % (Auto) Baso % (Auto) Lymph # (Auto) [place] # (Auto) Eos # (Auto) Baso # (Auto) Abs Immat Gran (auto) Absolute Neuts (auto) Absolute Nucleated RBC Nucleated RBC % Puncture Site ABG pH ABG pCO2 ABG pO2 ABG PO2/FiO2 Ratio ABG HCO3 ABG O2 Saturation ABG O2 Content ABG Base Excess A-a Gradient Oxyhemoglobin Carboxyhemoglobin Methemoglobin Reduced Hemoglobin Total Hemoglobin O2 Delivery Device O2 Liters/Min Minute Volume Vent Rate Vent Mode FiO2 Tidal Volume PEEP Peak Inspir Pressure Pressure Support Sodium Potassium Chloride Carbon Dioxide Anion Gap BUN Creatinine Estim Creat Clear Calc Estimated GFR Glucose POC Capillary Glucose Lactic Acid 2.6 H Calcium Phosphorus Magnesium Total Bilirubin AST ALT Alkaline Phosphatase Total Protein Albumin Random Vancomycin Blood Type B Positive Antibody Screen Negative Crossmatch See Detail
[2025-02-20] MEDS: CHOLESTYRAMINE LIGHT 4 GM POWD.PACK PO ×2 (09:16→18:48)
[2025-02-20] MEDS: CALCIUM GLUC 2,000 MG/NS 100ML 2,000 MG/100 ML BAG 100 MG IVPB (09:16)
--- NOTE | 2025-02-20 10:41 | PM.PNNEP ---
Progress Note: A&P Assessment and Plan (1) Acute kidney injury: Code(s): N17.9 - Acute kidney failure, unspecified Status: Resolved Assessment and Plan: Patient has acute kidney injury. multifactorial etiology: prerenal factors (poor oral intake + ongoing diarrhea) hemodynamic instability/hypotension infection/early sepsis(?) use of ARB prior to admission other(?) evaluation noted: renal ultrasound okay urine electrolytes prerenal urine eosinophils negative CPK okay moderate proteinuria Patient has been getting antibiotics. Blood pressure has been doing pretty well Chest x-ray shows pneumonia versus fluid. Off IV fluids creatinine is improving slowly (2) Stage 3a chronic kidney disease: Code(s): N18.31 - Chronic kidney disease, stage 3a Status: Chronic Assessment and Plan: baseline creatinine runs ~ 0.9 - 1.2mg/dl presumably due to hypertension and age-related change (3) Metabolic acidosis: Code(s): E87.20 - Acidosis, unspecified Status: Resolved Assessment and Plan: CO2 is much better. Lactic acid is still high, her anion gap is 12 which is slightly higher than her baseline. May be due to anemia? her CO2 was normal Her pH is high This looks like metabolic acidosis plus respiratory alkalosis. Hopefully lactic acid will improve soon (4) Hyponatremia: Code(s): E87.1 - Hypo-osmolality and hyponatremia Status: Acute Assessment and Plan: Sodium level is normal now (5) Diarrhea: Qualifiers: Diarrhea type: presumed infectious Qualified Code(s): R19.7 - Diarrhea, unspecified Code(s): R19.7 - Diarrhea, unspecified Status: Acute Assessment and Plan: appears to be somewhat of a chronic issue Diarrhea was much worse a few days ago and is better now. on Imodium as an outpatient GI following (6) Adenocarcinoma of left lung, stage 4: Code(s): C34.92 - Malignant neoplasm of unspecified part of left bronchus or lung Status: Chronic Assessment and Plan: known diagnosis chemotherapy apparently on hold follows with Hem/Onc (7) Electrolyte abnormality: Code(s): E87.8 - Other disorders of electrolyte and fluid balance, not elsewhere classified Status: Acute Assessment and Plan: K low she is receiving supplements Subjective Date/time seen: 02/20/25 10:41 Interval history: Son is in the room. We discuss the case Patient is comfortable on the ventilator Exam Narrative: General: elderly but WD/WN female in NAD sedated and on the ventilator Heart: normal S1 and S2; no rub or gallop Lungs: Mild coarse upper airway noise Abdomen: soft, nontender, nondistended, positive bowel sounds Extremities: no edema Skin: no subQ nodules Objective Data Vital Signs Vital Signs: Vital Signs - 24 hr 02/19/25 11:17 02/19/25 11:30 02/19/25 11:50 Temperature Pulse Rate 91 93 83 Respiratory Rate 17 18 Blood Pressure Pulse Oximetry 96 100 Oxygen Delivery Mechanical Ventilation Mechanical Ventilation Fraction of Inspired Oxygen 30 30 02/19/25 12:00 02/19/25 12:00 02/19/25 12:00 Temperature 97.3 F L Pulse Rate 82 85 Respiratory Rate 18 18 Blood Pressure 92/65 L Pulse Oximetry 100 Oxygen Delivery Fraction of Inspired Oxygen 30 02/19/25 12:00 02/19/25 12:26 02/19/25 13:40 Temperature Pulse Rate 83 88 83 Respiratory Rate 23 H 19 Blood Pressure Pulse Oximetry Oxygen Delivery Fraction of Inspired Oxygen 02/19/25 13:43 02/19/25 13:57 02/19/25 14:00 Temperature Pulse Rate 84 84 87 Respiratory Rate 19 17 18 Blood Pressure Pulse Oximetry Oxygen Delivery Fraction of Inspired Oxygen 02/19/25 14:00 02/19/25 14:00 02/19/25 14:16 Temperature 97.8 F Pulse Rate 85 85 82 Respiratory Rate 20 20 Blood Pressure 100/71 Pulse Oximetry 100 Oxygen Delivery Fraction of Inspired Oxygen 02/19/25 14:17 02/19/25 14:33 02/19/25 14:33 Temperature Pulse Rate 82 70 70 Respiratory Rate 20 17 20 Blood Pressure Pulse Oximetry Oxygen Delivery Fraction of Inspired Oxygen 02/19/25 14:39 02/19/25 14:43 02/19/25 14:44 Temperature Pulse Rate 72 88 72 Respiratory Rate 16 16 Blood Pressure Pulse Oximetry 100 Oxygen Delivery Mechanical Ventilation Fraction of Inspired Oxygen 30 02/19/25 14:48 02/19/25 15:16 02/19/25 15:16 Temperature Pulse Rate 75 79 79 Respiratory Rate 16 16 16 Blood Pressure Pulse Oximetry Oxygen Delivery Fraction of Inspired Oxygen 02/19/25 15:40 02/19/25 16:00 02/19/25 16:00 Temperature Pulse Rate 78 82 79 Respiratory Rate 16 16 16 Blood Pressure Pulse Oximetry 100 Oxygen Delivery Mechanical Ventilation Fraction of Inspired Oxygen 30 02/19/25 16:00 02/19/25 16:00 02/19/25 16:00 Temperature 97.7 F Pulse Rate 81 84 Respiratory Rate 16 Blood Pressure 90/59 L Pulse Oximetry 100 Oxygen Delivery Fraction of Inspired Oxygen 30 02/19/25 16:14 02/19/25 17:23 02/19/25 18:00 Temperature Pulse Rate 94 80 74 Respiratory Rate 19 16 Blood Pressure Pulse Oximetry 100 Oxygen Delivery Mechanical Ventilation Fraction of Inspired Oxygen 30 02/19/25 18:00 02/19/25 18:00 02/19/25 18:00 Temperature 98.1 F Pulse Rate 75 74 74 Respiratory Rate 16 16 Blood Pressure 90/58 L Pulse Oximetry 100 Oxygen Delivery Fraction of Inspired Oxygen 02/19/25 18:23 02/19/25 18:25 02/19/25 20:00 Temperature Pulse Rate 74 75 69 Respiratory Rate 16 16 14 Blood Pressure Pulse Oximetry Oxygen Delivery Fraction of Inspired Oxygen 02/19/25 20:00 02/19/25 20:00 02/19/25 20:00 Temperature 98.6 F Pulse Rate 69 69 Respiratory Rate 14 14 Blood Pressure 96/61 L Pulse Oximetry 100 Oxygen Delivery Fraction of Inspired Oxygen 30 02/19/25 20:00 02/19/25 20:00 02/19/25 20:20 Temperature Pulse Rate 69 70 68 Respiratory Rate 14 Blood Pressure Pulse Oximetry 100 100 Oxygen Delivery Mechanical Ventilation Mechanical Ventilation Fraction of Inspired Oxygen 30 30 02/19/25 20:34 02/19/25 20:34 02/19/25 22:00 Temperature 98.9 F Pulse Rate 68 70 101 H Respiratory Rate 16 16 17 Blood Pressure 95/62 L Pulse Oximetry 100 Oxygen Delivery Fraction of Inspired Oxygen 02/19/25 22:00 02/19/25 22:00 02/19/25 22:00 Temperature Pulse Rate 101 H 101 H 101 H Respiratory Rate 17 17 Blood Pressure Pulse Oximetry Oxygen Delivery Fraction of Inspired Oxygen 02/19/25 23:20 02/20/25 00:00 02/20/25 00:00 Temperature 99 F Pulse Rate 81 77 76 Respiratory Rate 16 Blood Pressure 105/66 Pulse Oximetry 100 100 Oxygen Delivery Mechanical Ventilation Fraction of Inspired Oxygen 30 02/20/25 00:00 02/20/25 00:00 02/20/25 00:00 Temperature Pulse Rate 76 76 Respiratory Rate 16 16 Blood Pressure Pulse Oximetry Oxygen Delivery Fraction of Inspired Oxygen 30 02/20/25 00:00 02/20/25 02:00 02/20/25 02:00 Temperature 98.7 F Pulse Rate 76 70 70 Respiratory Rate 16 16 Blood Pressure 123/75 Pulse Oximetry 100 100 Oxygen Delivery Mechanical Ventilation Fraction of Inspired Oxygen 30 02/20/25 02:00 02/20/25 02:00 02/20/25 02:00 Temperature Pulse Rate 70 70 71 Respiratory Rate 16 16 Blood Pressure Pulse Oximetry 100 Oxygen Delivery Mechanical Ventilation Fraction of Inspired Oxygen 30 02/20/25 02:01 02/20/25 02:10 02/20/25 03:29 Temperature Pulse Rate 71 72 90 Respiratory Rate 16 16 17 Blood Pressure Pulse Oximetry Oxygen Delivery Fraction of Inspired Oxygen 02/20/25 03:29 02/20/25 04:00 02/20/25 04:00 Temperature 98.3 F Pulse Rate 90 85 Respiratory Rate 17 17 Blood Pressure 113/68 Pulse Oximetry 100 Oxygen Delivery Fraction of Inspired Oxygen 30 02/20/25 04:00 02/20/25 04:00 02/20/25 04:00 Temperature Pulse Rate 85 85 85 Respiratory Rate 17 17 16 Blood Pressure Pulse Oximetry 100 Oxygen Delivery Mechanical Ventilation Fraction of Inspired Oxygen 30 02/20/25 04:00 02/20/25 05:08 02/20/25 05:08 Temperature Pulse Rate 84 83 83 Respiratory Rate 17 17 Blood Pressure Pulse Oximetry Oxygen Delivery Fraction of Inspired Oxygen 02/20/25 05:10 02/20/25 06:00 02/20/25 06:00 Temperature 97.9 F Pulse Rate 83 72 72 Respiratory Rate 18 Blood Pressure 122/79 Pulse Oximetry 100 100 Oxygen Delivery Mechanical Ventilation Fraction of Inspired Oxygen 30 02/20/25 06:00 02/20/25 06:00 02/20/25 07:38 Temperature Pulse Rate 72 72 74 Respiratory Rate 18 18 Blood Pressure Pulse Oximetry 100 Oxygen Delivery Mechanical Ventilation Fraction of Inspired Oxygen 30 02/20/25 07:42 02/20/25 07:45 02/20/25 07:53 Temperature 97.9 F Pulse Rate 76 75 84 Respiratory Rate 14 21 H 14 Blood Pressure 115/71 Pulse Oximetry 100 Oxygen Delivery Fraction of Inspired Oxygen 02/20/25 08:00 02/20/25 08:00 02/20/25 08:00 Temperature 97.8 F 97.8 F Pulse Rate 88 87 93 Respiratory Rate 14 14 14 Blood Pressure 111/67 111/67 Pulse Oximetry 98 98 Oxygen Delivery Fraction of Inspired Oxygen 02/20/25 08:00 02/20/25 08:00 02/20/25 08:00 Temperature Pulse Rate 90 Respiratory Rate 14 Blood Pressure Pulse Oximetry 99 Oxygen Delivery Mechanical Ventilation Fraction of Inspired Oxygen 30 30 02/20/25 08:00 02/20/25 08:09 02/20/25 09:09 Temperature 97.7 F 97.6 F Pulse Rate 89 90 100 Respiratory Rate 14 20 Blood Pressure 106/64 100/54 L Pulse Oximetry 99 100 Oxygen Delivery Fraction of Inspired Oxygen 02/20/25 10:00 02/20/25 10:22 Temperature 97.7 F Pulse Rate 89 87 Respiratory Rate 18 Blood Pressure 119/75 Pulse Oximetry 100 97 Oxygen Delivery Mechanical Ventilation Fraction of Inspired Oxygen 30 Intake/Output Intake/Output: Intake & Output 02/17/25 02/18/25 02/19/25 02/20/25 23:59 23:59 23:59 23:59 Intake Total 4443.8 667.2 4155.0 943.3 Output Total 2201 1600 1850 800 Balance 2242.8 -932.8 2305.0 143.3 Meds/Results Medications: Active Medications Generic Name Dose Route Start Last Admin Trade Name Freq PRN Reason Stop Dose Admin Acetaminophen 650 mg 02/16/25 14:42 Acetaminophen 325 Mg Tablet PO Q4H PRN Mild Pain (1-3) or Fever Hydrocodone Bitart/Acetaminophen 1 tab 02/16/25 22:21 Hydrocodone/Acetaminophen (*Crx) 5-325 Mg Tablet PO Q12H PRN Pain Rated 4-6 Albuterol/Ipratropium 3 ml 02/19/25 08:00 02/20/25 07:35 Ipratropium 0.5 Mg/Albuterol Sulfate 2.5 Mg Ampul.Neb 3 Ml INHALATION 3 ml Q6HRT COUNTS INCLUDE 234 BEDS AT THE [facility] Administration Calcium Carbonate 500 mg 02/17/25 09:00 02/18/25 18:52 Calcium Carbonate (Oscal) 500 Mg Tablet PO Not Given BID COUNTS INCLUDE 234 BEDS AT THE [facility] Cholestyramine Resin 4 gm 02/17/25 18:00 02/20/25 09:16 Cholestyramine Light 4 Gm Powd.Pack PO 4 gm BID@1000,1800 [facility] Administration Dexamethasone 4 mg 02/20/25 09:00 02/20/25 08:54 Dexamethasone 4 Mg Tablet PO 4 mg DAILY LSISETTE Administration Ferrous Sulfate 325 mg 02/20/25 09:00 02/20/25 08:54 Ferrous Sulfate [address] BY MOUTH 325 mg BID [facility] Administration Folic Acid 1 mg 02/17/25 09:00 02/20/25 08:54 Folic Acid 1 Mg Tablet PO 1 mg DAILY L[facility] Administration Heparin Sodium (Beef Lung) 50 units 02/19/25 09:00 02/19/25 09:27 Heparin Flush 50 Units/5 Ml Syringe IV PUSH Not Given QAM [facility] Heparin Sodium (Beef Lung) 50 units 02/18/25 19:00 Heparin Flush 50 Units/5 Ml Syringe IV PUSH PRN PRN after intermittent infusion Heparin Sodium (Beef Lung) 50 units 02/18/25 19:00 Heparin Flush 50 Units/5 Ml Syringe IV PUSH PRN PRN after blood draws Heparin Sodium (Porcine) 500 units 02/18/25 19:00 Heparin Sodium Lock Flush 500 Units/5 Ml Syringe IV PUSH PRN PRN see comments below Meropenem 1 gm in 100 mls @ 200 mls/hr 02/18/25 19:00 02/20/25 06:10 IVPB 200 mls/hr Q12H [facility] Administration Propofol 100 mls @ 10.836 mls/hr 02/18/25 18:45 02/20/25 08:00 Diprivan IV CONT 30 mcg/kg/min .Q9H14M [place] 10.84 mls/hr Titration Protocol 30 MCG/KG/MIN Midazolam HCl 100 mg in 100 mls @ 4 mls/hr 02/19/25 13:35 02/20/25 08:00 Versed 100 Mg/Ns 100 Ml IV CONT 4 mg/hr .Q25H [place] 4 mls/hr Titration Protocol 4 MG/HR Sodium Chloride 250 mls @ 30 mls/hr 02/20/25 05:35 02/20/25 08:28 Normal Saline Iv IV CONT 02/20/25 13:54 30 mls/hr .Q8H20M STA Administration Loperamide HCl 2 mg 02/17/25 00:04 02/18/25 15:38 Loperamide Hcl 2 Mg Capsule PO 2 mg TID PRN Administration Diarrhea Melatonin 10 mg 02/18/25 21:00 Melatonin 5 Mg Tablet PO HS [facility] Miscellaneous Information 1 each 02/20/25 00:01 02/19/25 19:36 Please Renew Propofol_. Per [employer] Procedure, It Will Discontinue If Not Renewed XX 03/22/25 00:00 1 each CLARIFY [facility] Administration Multi-Ingred Cream/Lotion/Oil/Oint 1 applic 02/18/25 21:00 02/20/25 08:54 Mineral Oil/White Petrolatum Ointment EACH EYE 1 applic Q12HR [facility] Administration Nitroglycerin 0.4 mg 02/18/25 16:44 02/18/25 17:15 Nitroglycerin Sl 0.4 Mg Tablet SUBLINGUAL 0.4 mg Q5MIN PRN Administration Chest Pain Ondansetron HCl 4 mg 02/16/25 14:42 Ondansetron Inj 4 Mg/2 Ml Vial IV PUSH Q4H PRN Nausea Pantoprazole Sodium 40 mg 02/19/25 21:00 02/20/25 08:53 Pantoprazole Sodium Iv 40 Mg Vial IV PUSH 40 mg Q12HR [facility] Administration Sodium Chloride 10 ml 02/18/25 22:00 02/20/25 06:16 Central Line Flush IV PUSH 10 ml Q8HR [place] Administration Sodium Chloride 10 ml 02/19/25 14:00 02/20/25 06:16 Central Line Flush IV PUSH 10 ml Q8HR [place] Administration Sodium Chloride 10 ml 02/19/25 10:47 Central Line Flush IV PUSH PRN PRN with TPN bag changes Sodium Chloride 20 ml 02/19/25 10:47 Central Line Flush IV PUSH PRN PRN after blood draws Vancomycin HCl 1 each 02/18/25 19:15 Vancomycin For Acute Kidney Injury IVPB PRN PRN Vancomycin Protocol Radiology Results: ITS Impressions Renal Ultrasound 02/17/25 08:54 IMPRESSION: 1. Normal kidneys without hydronephrosis. Abdomen X-Ray 02/18/25 19:29 IMPRESSION: Orogastric tube in good position and ready for immediate use. Head CT 02/19/25 09:07 IMPRESSION: No acute intracranial findings. Chest/Abdomen/Pelvis CT 02/19/25 09:17 IMPRESSION: CHEST: 1. Bilateral moderate pleural effusion with adjacent atelectasis versus pneumonia. 2. Trace of pericardial effusion. 3. Sclerotic changes in the superior endplate of T1. MRI evaluation to exclude acute fracture. ABDOMEN/PELVIS: 1. No evidence of appendicitis, diverticulitis or intestinal obstruction. No kidney stones. Chest X-Ray 02/20/25 07:09 IMPRESSION: 1. Opacities in bilateral lower lung zones which could represent atelectasis and/or pneumonia with improvement on the right and worsening on the left. 2. Lines and tubes in expected position. Venous Doppler Study 02/20/25 10:00 IMPRESSION: 1. Patent bilateral upper extremity veins. No evidence of venous thrombosis. Labs Labs: Laboratory Results - last 24 hr 02/19/25 02/19/25 02/19/25 12:19 17:21 20:15 WBC RBC Hgb Hct MCV MCH MCHC RDW Plt Count MPV Immature Gran % (Auto) Neut % (Auto) Lymph % (Auto) Ida % (Auto) Eos % (Auto) Baso % (Auto) Lymph # (Auto) Ida # (Auto) Eos # (Auto) Baso # (Auto) Abs Immat Gran (auto) Absolute Neuts (auto) Absolute Nucleated RBC Nucleated RBC % Puncture Site ABG pH ABG pCO2 ABG pO2 ABG PO2/FiO2 Ratio ABG HCO3 ABG O2 Saturation ABG O2 Content ABG Base Excess A-a Gradient Oxyhemoglobin Carboxyhemoglobin Methemoglobin Reduced Hemoglobin Total Hemoglobin O2 Delivery Device O2 Liters/Min Minute Volume Vent Rate Vent Mode FiO2 Tidal Volume PEEP Peak Inspir Pressure Pressure Support Sodium Potassium Chloride Carbon Dioxide Anion Gap BUN Creatinine Estim Creat Clear Calc Estimated GFR Glucose POC Capillary Glucose 149 H 146 H Lactic Acid Calcium Phosphorus Magnesium Total Bilirubin AST ALT Alkaline Phosphatase Total Protein Albumin Random Vancomycin 8.0 L Blood Type Antibody Screen Crossmatch 02/20/25 02/20/25 02/20/25 00:12 04:13 05:06 WBC 14.0 H RBC 2.12 L Hgb 6.6 L* Hct 19.8 L* MCV 93.4 MCH 31.1 MCHC 33.3 RDW 15.6 H Plt Count 195 MPV 9.5 Immature Gran % (Auto) 8.4 H Neut % (Auto) 77.2 H Lymph % (Auto) 6.2 L Ida % (Auto) 8.0 Eos % (Auto) 0.1 Baso % (Auto) 0.1 L Lymph # (Auto) 0.87 L Ida # (Auto) 1.1 H Eos # (Auto) 0.0 Baso # (Auto) 0.0 Abs Immat Gran (auto) 1.17 H Absolute Neuts (auto) 10.8 H Absolute Nucleated RBC 0.000 Nucleated RBC % 0.0 Puncture Site Right radial ABG pH 7.495 H ABG pCO2 34.9 L ABG pO2 101.1 H ABG PO2/FiO2 Ratio 3.37 ABG HCO3 26.3 H ABG O2 Saturation 98.1 ABG O2 Content 9.7 L ABG Base Excess 2.9 A-a Gradient 71.8 Oxyhemoglobin 96.9 Carboxyhemoglobin 0.7 Methemoglobin 0.1 Reduced Hemoglobin 2.3 Total Hemoglobin 7.0 L* O2 Delivery Device Ventilator O2 Liters/Min Not Reportable Minute Volume Not Reportable Vent Rate 16 Vent Mode Cmv FiO2 30 Tidal Volume 350 PEEP 5 Peak Inspir Pressure Not Reportable Pressure Support Not Reportable Sodium 139 Potassium 2.5 L* Chloride 102 Carbon Dioxide 25 Anion Gap 12 BUN 14 D Creatinine 1.20 H Estim Creat Clear Calc 31 Estimated GFR 45 L Glucose 126 H POC Capillary Glucose 133 H Lactic Acid 3.3 H Calcium 6.9 L Phosphorus 1.5 L Magnesium 2.1 Total Bilirubin < 0.1 L AST 31 ALT 18 Alkaline Phosphatase 101 Total Protein 5.7 L Albumin 3.9 Random Vancomycin Blood Type Antibody Screen Crossmatch 02/20/25 02/20/25 05:48 08:03 WBC RBC Hgb Hct MCV MCH MCHC RDW Plt Count MPV Immature Gran % (Auto) Neut % (Auto) Lymph % (Auto) Ida % (Auto) Eos % (Auto) Baso % (Auto) Lymph # (Auto) Ida # (Auto) Eos # (Auto) Baso # (Auto) Abs Immat Gran (auto) Absolute Neuts (auto) Absolute Nucleated RBC Nucleated RBC % Puncture Site ABG pH ABG pCO2 ABG pO2 ABG PO2/FiO2 Ratio ABG HCO3 ABG O2 Saturation ABG O2 Content ABG Base Excess A-a Gradient Oxyhemoglobin Carboxyhemoglobin Methemoglobin Reduced Hemoglobin Total Hemoglobin O2 Delivery Device O2 Liters/Min Minute Volume Vent Rate Vent Mode FiO2 Tidal Volume PEEP Peak Inspir Pressure Pressure Support Sodium Potassium Chloride Carbon Dioxide Anion Gap BUN Creatinine Estim Creat Clear Calc Estimated GFR Glucose POC Capillary Glucose Lactic Acid 2.6 H Calcium Phosphorus Magnesium Total Bilirubin AST ALT Alkaline Phosphatase Total Protein Albumin Random Vancomycin Blood Type B Positive Antibody Screen Negative Crossmatch See Detail
[2025-02-20] MEDS: POTASSIUM/PHOSPHORUS/SODIUM 1.5 GM PACKET 1 PACKET PO (11:25)
[2025-02-20 15:01] LABS: Hematocrit 27.0 % (37.0-47.0); Hemoglobin 8.8 g/dL (12.0-15.0)
[2025-02-20 15:07] LABS: Potassium 3.8 mmol/L (3.4-5.0)
--- NOTE | 2025-02-20 17:18 | P.CONCA_ITS ---
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 New onset systolic heart failure -would resume her losartan 50 mg p.o. daily when okay from renal perspective -in efforts of early extubation, would recommend keeping her ins and outs net negative using Lasix p.r.n. -when she is more stable, we can initiate metoprolol succinate 25 mg p.o. daily -cardiac catheterization to define a coronary anatomy is not ideal at this given recent acute anemia requiring transfusion along with her recently recovering severe renal dysfunction -eventually, if in the alignment with her goals of care, we can discuss cardiac catheterization in the outpatient setting to ensure no multivessel coronary artery disease as well as repeating transthoracic echocardiogram 3 months after guideline directed medical therapy Troponin elevation -unlikely secondary to plaque rupture -given that she is hemodynamically stable and requiring recent blood transfusion for acute anemia, would avoid anticoagulation as risk outweighs benefits at this time Acute anemia -status post transfusion 1 unit packed red blood cells History of Present Illness History of Present Illness Consult date/time: 02/20/25 17:18 Requesting physician: Andrés Ruano MD Reason For Visit: SUDHA/Dehydration/UTI Narrative: 64-year-old woman with 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 She is currently intubated and sedated. Family is at bedside we did not notice any cardiopulmonary limitations to physical activity recently. During her workup for acute sudden-onset acute hypoxic respiratory failure, at transthoracic echocardiogram was performed showing severely reduced systolic function in a pattern that is consistent with stress cardiomyopathy. Review of Systems 2 Review of Systems: ROS unobtainable: Yes unobtainable due to endotracheal tube PMFSH Past Medical History Medical History (Updated 02/20/25 @ 08:13 by Andrés Ruano MD) History of giardia infection CKD (chronic kidney disease) Benign hypertension Metastasis to bone Adenocarcinoma of left lung, stage 4 Secondary malignant neoplasm of brain Gallstone Asthma Surgical History Surgical History History of cholecystectomy History of appendectomy H/O hysterectomy for benign disease Family History Family History Father Alcoholism Mother Cirrhosis Sibling Cancer Diabetes mellitus Depression Heart disease Social History Social History Social History: caffeine- coffee 10 tea 1/2 gallon soda 1 can Smoking packs per day: 2 Smoking cigarettes per day: 40.0 Years smoked: 48 Smoking pack-years: 96.00 Smoking status: Never smoker Tobacco type: cigarettes Second hand tobacco smoke exposure: No Alcohol intake: former Substance use: current Substance use type: marijuana Last use: 12/25/24 Do You Feel Safe in your Home?: Yes Lack of Transportation: No Lack of Food: Never True Current Housing: I Have Housing Concerned About Future Housing: No Difficulty Paying Gas/Electric Bills: No Difficulty Paying for Meds: No Currently Unemployed: No Education: Grade School Difficulty w/ Childcare or Family Care: No Living arrangements: with family Occupation/Education: retired Gender identity (if verbalized by the patient): Female Sexual Orientation (if Verbalized by the Patient): Straight or Heterosexual Spiritual care concerns: No Meds Home Medications and Allergies Home Medications ?Medication ?Instructions ?Recorded ?Confirmed ?Type dexamethasone 4 mg tablet 4 mg PO BID 01/15/24 02/16/25 History folic acid 1 mg tablet 1 mg PO DAILY 01/15/24 02/16/25 History ondansetron 8 mg disintegrating 8 mg PO Q8H 01/15/24 02/16/25 History tablet calcium 500 mg tablet 500 mg PO BID 04/08/24 02/16/25 History B12 100 mcg PO DAILY 11/12/24 02/16/25 History Lidocaine-Prilocaine 1 dose topical PRN PRN to numb 11/12/24 02/16/25 History port 30 min before access ferrous sulfate 325 mg (65 mg 325 mg PO DAILY 11/12/24 02/16/25 History iron) tablet (iron) potassium chloride 20 mEq/15 mL 20 meq PO BID 11/12/24 02/16/25 History oral liquid cholestyramine 4 gram oral powder 4 g PO QAM@1000 #30 ea 01/03/25 02/16/25 Rx for suspension in a packet (Prevalite) loperamide 2 mg capsule 2 mg PO TID #20 caps 01/03/25 02/16/25 Rx Saccharomyces boulardii 500 mg PO DAILY 01/06/25 02/16/25 History lansoprazole 30 mg capsule,delayed 30 mg PO DAILY 01/06/25 02/16/25 History release hydrocodone 5 mg-acetaminophen 325 1 tablet PO Q12H PRN pain #60 tabs 02/15/25 02/16/25 Rx mg tablet losartan 50 mg tablet 50 mg PO DAILY #90 tabs 02/15/25 02/16/25 Rx Allergies Allergy/AdvReac Type Severity Reaction Status Date / Time No Known Allergies Allergy Verified 02/15/25 07:49 Vital Signs Vital Signs - 24 hr 02/19/25 17:23 02/19/25 18:00 02/19/25 18:00 Temperature Pulse Rate 80 74 75 Respiratory Rate 16 16 Blood Pressure Pulse Oximetry 100 Oxygen Delivery Mechanical Ventilation Fraction of Inspired Oxygen 30 02/19/25 18:00 02/19/25 18:00 02/19/25 18:23 Temperature 36.7 C Pulse Rate 74 74 74 Respiratory Rate 16 16 Blood Pressure 90/58 L Pulse Oximetry 100 Oxygen Delivery Fraction of Inspired Oxygen 02/19/25 18:25 02/19/25 20:00 02/19/25 20:00 Temperature Pulse Rate 75 69 69 Respiratory Rate 16 14 14 Blood Pressure Pulse Oximetry Oxygen Delivery Fraction of Inspired Oxygen 02/19/25 20:00 02/19/25 20:00 02/19/25 20:00 Temperature 37.0 C Pulse Rate 69 69 Respiratory Rate 14 14 Blood Pressure 96/61 L Pulse Oximetry 100 100 Oxygen Delivery Mechanical Ventilation Fraction of Inspired Oxygen 30 30 02/19/25 20:00 02/19/25 20:20 02/19/25 20:34 Temperature Pulse Rate 70 68 68 Respiratory Rate 16 Blood Pressure Pulse Oximetry 100 Oxygen Delivery Mechanical Ventilation Fraction of Inspired Oxygen 30 02/19/25 20:34 02/19/25 22:00 02/19/25 22:00 Temperature 37.2 C Pulse Rate 70 101 H 101 H Respiratory Rate 16 17 17 Blood Pressure 95/62 L Pulse Oximetry 100 Oxygen Delivery Fraction of Inspired Oxygen 02/19/25 22:00 02/19/25 22:00 02/19/25 23:20 Temperature Pulse Rate 101 H 101 H 81 Respiratory Rate 17 Blood Pressure Pulse Oximetry 100 Oxygen Delivery Mechanical Ventilation Fraction of Inspired Oxygen 30 02/20/25 00:00 02/20/25 00:00 02/20/25 00:00 Temperature 37.2 C Pulse Rate 77 76 Respiratory Rate 16 Blood Pressure 105/66 Pulse Oximetry 100 Oxygen Delivery Fraction of Inspired Oxygen 30 02/20/25 00:00 02/20/25 00:00 02/20/25 00:00 Temperature Pulse Rate 76 76 76 Respiratory Rate 16 16 16 Blood Pressure Pulse Oximetry 100 Oxygen Delivery Mechanical Ventilation Fraction of Inspired Oxygen 30 02/20/25 02:00 02/20/25 02:00 02/20/25 02:00 Temperature 37.1 C Pulse Rate 70 70 70 Respiratory Rate 16 16 Blood Pressure 123/75 Pulse Oximetry 100 Oxygen Delivery Fraction of Inspired Oxygen 02/20/25 02:00 02/20/25 02:00 02/20/25 02:01 Temperature Pulse Rate 70 71 71 Respiratory Rate 16 16 Blood Pressure Pulse Oximetry 100 Oxygen Delivery Mechanical Ventilation Fraction of Inspired Oxygen 30 02/20/25 02:10 02/20/25 03:29 02/20/25 03:29 Temperature Pulse Rate 72 90 90 Respiratory Rate 16 17 17 Blood Pressure Pulse Oximetry Oxygen Delivery Fraction of Inspired Oxygen 02/20/25 04:00 02/20/25 04:00 02/20/25 04:00 Temperature 36.8 C Pulse Rate 85 85 Respiratory Rate 17 17 Blood Pressure 113/68 Pulse Oximetry 100 Oxygen Delivery Fraction of Inspired Oxygen 30 02/20/25 04:00 02/20/25 04:00 02/20/25 04:00 Temperature Pulse Rate 85 85 84 Respiratory Rate 17 16 Blood Pressure Pulse Oximetry 100 Oxygen Delivery Mechanical Ventilation Fraction of Inspired Oxygen 30 02/20/25 05:08 02/20/25 05:08 02/20/25 05:10 Temperature Pulse Rate 83 83 83 Respiratory Rate 17 17 Blood Pressure Pulse Oximetry 100 Oxygen Delivery Mechanical Ventilation Fraction of Inspired Oxygen 30 02/20/25 06:00 02/20/25 06:00 02/20/25 06:00 Temperature 36.6 C Pulse Rate 72 72 72 Respiratory Rate 18 18 Blood Pressure 122/79 Pulse Oximetry 100 Oxygen Delivery Fraction of Inspired Oxygen 02/20/25 06:00 02/20/25 07:38 02/20/25 07:42 Temperature Pulse Rate 72 74 76 Respiratory Rate 18 14 Blood Pressure Pulse Oximetry 100 Oxygen Delivery Mechanical Ventilation Fraction of Inspired Oxygen 30 02/20/25 07:45 02/20/25 07:53 02/20/25 08:00 Temperature 36.6 C 36.6 C Pulse Rate 75 84 88 Respiratory Rate 21 H 14 14 Blood Pressure 115/71 111/67 Pulse Oximetry 100 98 Oxygen Delivery Fraction of Inspired Oxygen 02/20/25 08:00 02/20/25 08:00 02/20/25 08:00 Temperature 36.6 C Pulse Rate 87 93 90 Respiratory Rate 14 14 14 Blood Pressure 111/67 Pulse Oximetry 98 Oxygen Delivery Fraction of Inspired Oxygen 02/20/25 08:00 02/20/25 08:00 02/20/25 08:00 Temperature Pulse Rate 89 Respiratory Rate Blood Pressure Pulse Oximetry 99 Oxygen Delivery Mechanical Ventilation Fraction of Inspired Oxygen 30 30 02/20/25 08:09 02/20/25 09:09 02/20/25 10:00 Temperature 36.5 C 36.4 C 36.5 C Pulse Rate 90 100 89 Respiratory Rate 14 20 18 Blood Pressure 106/64 100/54 L 119/75 Pulse Oximetry 99 100 100 Oxygen Delivery Fraction of Inspired Oxygen 02/20/25 10:00 02/20/25 10:00 02/20/25 10:00 Temperature Pulse Rate 80 86 89 Respiratory Rate 15 15 Blood Pressure Pulse Oximetry Oxygen Delivery Fraction of Inspired Oxygen 02/20/25 10:09 02/20/25 10:22 02/20/25 11:05 Temperature 36.5 C 36.7 C Pulse Rate 85 87 86 Respiratory Rate 17 17 Blood Pressure 119/75 138/83 Pulse Oximetry 100 97 98 Oxygen Delivery Mechanical Ventilation Fraction of Inspired Oxygen 30 02/20/25 11:26 02/20/25 12:00 02/20/25 12:00 Temperature 37.1 C Pulse Rate 86 88 93 Respiratory Rate 15 19 Blood Pressure 122/77 Pulse Oximetry 99 Oxygen Delivery Fraction of Inspired Oxygen 02/20/25 12:00 02/20/25 12:00 02/20/25 12:43 Temperature Pulse Rate 85 Respiratory Rate 15 Blood Pressure Pulse Oximetry 99 Oxygen Delivery Mechanical Ventilation Fraction of Inspired Oxygen 30 30 02/20/25 13:05 02/20/25 13:43 02/20/25 13:44 Temperature Pulse Rate 85 80 81 Respiratory Rate 15 16 Blood Pressure Pulse Oximetry 99 Oxygen Delivery Mechanical Ventilation Fraction of Inspired Oxygen 30 02/20/25 14:00 02/20/25 14:00 02/20/25 15:00 Temperature 37.4 C Pulse Rate 94 90 92 Respiratory Rate 19 18 Blood Pressure 135/86 Pulse Oximetry 98 Oxygen Delivery Fraction of Inspired Oxygen 02/20/25 15:00 02/20/25 16:00 Temperature 37.6 C H Pulse Rate 91 90 Respiratory Rate 16 16 Blood Pressure 125/96 H Pulse Oximetry 98 Oxygen Delivery Fraction of Inspired Oxygen Exam 2 Const: Other: Intubated and sedated HENMT: Other: ETT in place Neck: Neck: no JVD Resp: Other: Ventilation noise Cardio: Rate: regular rate Rhythm: regular rhythm Extrem: General: no pedal edema Results Labs and Meds 02/20/25 14:52 02/20/25 14:52 Lab results: Cardiac Enzymes 02/20/25 Range/Units 04:13 AST 31 (14-36) U/L CBC 02/20/25 02/20/25 Range/Units 04:13 14:52 WBC 14.0 H (4.5-10.0) K/mm3 RBC 2.12 L (4.2-5.4) M/mm3 Hgb 6.6 L* 8.8 L (12.0-15.0) g/dL Hct 19.8 L* 27.0 L (37.0-47.0) % Plt Count 195 (150-375) k/mm3 Lymph # (Auto) 0.87 L (0.9-3.2) K/mm3 [place] # (Auto) 1.1 H (0.1-0.6) K/mm3 Eos # (Auto) 0.0 (0-0.3) K/mm3 Baso # (Auto) 0.0 (0.0-0.1) K/mm3 Comprehensive Metabolic Panel 02/20/25 02/20/25 Range/Units 04:13 14:52 Sodium 139 (137-145) mmol/L Potassium 2.5 L* 3.8 (3.4-5.0) mmol/L Chloride 102 (98-107) mmol/L Carbon Dioxide 25 (22-30) mmol/L BUN 14 D (7-17) mg/dL Creatinine 1.20 H (0.7-1.0) mg/dL Glucose 126 H (65-110) mg/dL Calcium 6.9 L (8.4-10.2) mg/dL AST 31 (14-36) U/L ALT 18 (6-35) U/L Alkaline Phosphatase 101 (38-126) U/L Total Protein 5.7 L (6.3-8.2) g/dL Albumin 3.9 (3.5-5.1) g/dL Intake and Output 02/20/25 02/20/25 02/20/25 07:59 15:59 23:59 Intake Total 920.6 463.9 Output Total 800 400 Balance 120.6 463.9 -400 Intake: IV 235.6 113.9 Midazolam 100Mg/Ns 100Ml(*Crx) 48.8 20.4 100 mg In 100 ml @ 1 MG/HR 1 mls/hr IV CONT .Q72H [facility] Rx#: [id number] Propofol IV Emulsion 100 ml @ 86.8 93.5 35 MCG/KG/MIN 12.642 mls/hr IV CONT .Q7H55M [facility] Rx#:[id number] Albumin Human 25% 25 gm/100 ml 100 100 ml @ 60 mls/hr IVPB Q6H [facility] Rx#:[id number] Intake (Blood Product) Amt 0 350 Leukocyte Reduced Rbc Unit 0 350 [id number] Oral 0 Tube Feeding 345 Tube Flush 90 Other 250 Output: Catheter Urine 800 400 Urethral Catheter 800 400 Other: Intake, Other Source H20 w/potassium Patient Weight 02/20/25 23:59 Weight 67.7 kg
[2025-02-20] MEDS: PROPOFOL IV EMULSION 100 ML 16.25 MG IV CONT (18:47)
[2025-02-20 18:56] LABS: Triglycerides 95 mg/dL (<150)
[2025-02-20] MEDS: VANCOMYCIN 1,000 MG/NS 250 ML 1,000 MG/250 ML BAG 250 MG IVPB (22:04)
[2025-02-21] VITALS (33 sets, daily range): BP systolic 102–131; BP diastolic 64–77; PULSE 69–94; RESP 13–18; TEMP 36.5–37.6; O2SAT 98–100
[2025-02-21] MEDS: PROPOFOL IV EMULSION 100 ML 16.25 MG IV CONT ×2 (01:05→12:00)
[2025-02-21] MEDS: IPRATROPIUM 0.5 MG/ALBUTEROL SULFATE 2.5 MG AMPUL.NEB 3 ML INHALATION ×4 (02:21→20:24)
[2025-02-21 04:23] LABS: Hematocrit 25.7 % (37.0-47.0); Hemoglobin 8.4 g/dL (12.0-15.0); Immature Granulocyte Percent A 9.4 % (0-0.5); Lymphocytes Absolute Auto 1.64 K/mm3 (0.9-3.2); Mean Corpuscular HGB Conc 32.7 g/dl (32-36); Mean Corpuscular Hemoglobin 30.4 pg (26-34); Mean Corpuscular Volume 93.1 fl (80-100); Nucleated Red Blood Cells Absolute Auto 0.040 K/mm3 (0.0-0.012); Nucleated Red Blood Cells Perc 0.2 % (0.0-0.2); Platelet Count Result 175 k/mm3 (150-375); Red Blood Count 2.76 M/mm3 (4.2-5.4); White Blood Count 22.3 K/mm3 (4.5-10.0)
[2025-02-21 04:38] LABS: Alanine Aminotransferase 14 U/L (6-35); Albumin Level 3.4 g/dL (3.5-5.1); Alkaline Phosphatase 103 U/L (38-126); Anion Gap 6 mmol/L (4-12); Aspartate Amino Transferase 25 U/L (14-36); Bilirubin,Total 0.2 mg/dL (0.2-1.3); Blood Urea Nitrogen 12 mg/dL (7-17); Calcium 7.8 mg/dL (8.4-10.2); Carbon Dioxide 27 mmol/L (22-30); Chloride 107 mmol/L (98-107); Estimated CRCL calculation 43 ml/min; Estimated Glomerular Filt Rate 55; Glucose 127 mg/dL (65-110); Magnesium 1.7 mg/dL (1.6-2.3); Potassium 3.2 mmol/L (3.4-5.0); Sodium 140 mmol/L (137-145); Total Protein 5.5 g/dL (6.3-8.2)
[2025-02-21 05:00] LABS: Alveolar/Arterial O2 Gradient 83.2 mmHg; Carboxyhemoglobin 0.3 % THb (0-2.0); Fractional Inspired Oxygen 30 %; HCO3 ABG 25.6 mEq/l (22.0-26.0); Methemoglobin ABG 0.3 %THb (0-1.5); Oxygen Content ABG 13.2 %vol (16.0-22.0); Oxygen Saturation ABG 97.1 % (95.0-100.0); PCO2 ABG 36.7 mmHg (35.0-45.0); PO2 ABG 87.6 mmHg (80.0-100.0); PO2 FiO2 Ratio Arterial Blood 2.92 %; Reduced Hemoglobin 3.7 %THb (0-5.0)
[2025-02-21 05:04] LABS: Arterial Blood Gas Ventilator rate 14 /MIN; Modified Allen's Test Pass; Site Drawn RIGHT RADIAL
[2025-02-21 05:05] LABS: Arterial Blood Gas Tidal Volume 350 ml
[2025-02-21] MEDS: CENTRAL LINE FLUSH 10 ML IV PUSH ×6 (06:00→21:45)
[2025-02-21] MEDS: PROPOFOL IV EMULSION 100 ML 14.45 MG IV CONT (06:36)
[2025-02-21] MEDS: FUROSEMIDE INJ 40 MG/4 ML VIAL IV PUSH (07:43)
[2025-02-21] MEDS: CALCIUM GLUC 2,000 MG/NS 100ML 2,000 MG/100 ML BAG 100 MG IVPB (07:47)
[2025-02-21] MEDS: MAGNESIUM SULF 2 GM/WATER 50ML 2 GM/50 ML BAG IVPB (07:56)
--- NOTE | 2025-02-21 08:55 | P.PNNP_ITS ---
Progress Note: A&P Assessment and Plan (1) Acute kidney injury: Code(s): N17.9 - Acute kidney failure, unspecified Status: Resolved Assessment and Plan: * Patient has acute kidney injury. * multifactorial etiology: * prerenal factors (poor oral intake + ongoing diarrhea) * hemodynamic instability/hypotension * infection/early sepsis(?) * use of ARB prior to admission * other(?) * evaluation noted: * renal ultrasound okay * urine electrolytes prerenal * urine eosinophils negative * CPK okay * moderate proteinuria * Patient has been getting antibiotics. * Blood pressure has been doing pretty well * creatinine is improving slowly and now is normal (2) Stage 3a chronic kidney disease: Code(s): N18.31 - Chronic kidney disease, stage 3a Status: Chronic Assessment and Plan: * baseline creatinine runs ~ 0.9 - 1.2mg/dl * presumably due to hypertension and age-related change (3) Metabolic acidosis: Code(s): E87.20 - Acidosis, unspecified Status: Resolved Assessment and Plan: * CO2 is much better. * Lactic acid was high yesterday. * Anion gap has come down to 6. * CO2 is 27 * doing well in this regard (4) Hyponatremia: Code(s): E87.1 - Hypo-osmolality and hyponatremia Status: Acute Assessment and Plan: * Sodium level is normal now (5) Diarrhea: Qualifiers: Diarrhea type: presumed infectious Qualified Code(s): R19.7 - Diarrhea, unspecified Code(s): R19.7 - Diarrhea, unspecified Status: Acute Assessment and Plan: * appears to be somewhat of a chronic issue * on Imodium as an outpatient * GI following (6) Adenocarcinoma of left lung, stage 4: Code(s): C34.92 - Malignant neoplasm of unspecified part of left bronchus or lung Status: Chronic Assessment and Plan: * known diagnosis * chemotherapy apparently on hold * follows with Hem/Onc (7) Electrolyte abnormality: Code(s): E87.8 - Other disorders of electrolyte and fluid balance, not elsewhere classified Status: Acute Assessment and Plan: K low she is receiving supplements again today Subjective Date/time seen: 02/21/25 08:55 Interval history: patient is on the ventilator. Son in the room nurse says that there will be a sedation holiday today Exam Narrative: General: elderly but WD/WN female in NAD sedated and on the ventilator Heart: normal S1 and S2; no rub or gallop Lungs: Mild coarse upper airway noise Abdomen: bowel sounds positive and soft Extremities: no edema Skin: no rash Objective Data Vital Signs Vital Signs: Vital Signs - 24 hr 02/20/25 09:09 02/20/25 10:00 02/20/25 10:00 Temperature 97.6 F 97.7 F Pulse Rate 100 89 80 Respiratory Rate 20 18 15 Blood Pressure 100/54 L 119/75 Pulse Oximetry 100 100 Oxygen Delivery Fraction of Inspired Oxygen 02/20/25 10:00 02/20/25 10:00 02/20/25 10:09 Temperature 97.7 F Pulse Rate 86 89 85 Respiratory Rate 15 17 Blood Pressure 119/75 Pulse Oximetry 100 Oxygen Delivery Fraction of Inspired Oxygen 02/20/25 10:22 02/20/25 11:05 02/20/25 11:26 Temperature 98.1 F Pulse Rate 87 86 86 Respiratory Rate 17 15 Blood Pressure 138/83 Pulse Oximetry 97 98 Oxygen Delivery Mechanical Ventilation Fraction of Inspired Oxygen 30 02/20/25 12:00 02/20/25 12:00 02/20/25 12:00 Temperature 98.8 F Pulse Rate 88 93 Respiratory Rate 19 Blood Pressure 122/77 Pulse Oximetry 99 99 Oxygen Delivery Mechanical Ventilation Fraction of Inspired Oxygen 30 02/20/25 12:00 02/20/25 12:43 02/20/25 13:05 Temperature Pulse Rate 85 85 Respiratory Rate 15 15 Blood Pressure Pulse Oximetry Oxygen Delivery Fraction of Inspired Oxygen 30 02/20/25 13:43 02/20/25 13:44 02/20/25 14:00 Temperature 99.4 F Pulse Rate 80 81 94 Respiratory Rate 16 19 Blood Pressure 135/86 Pulse Oximetry 99 98 Oxygen Delivery Mechanical Ventilation Fraction of Inspired Oxygen 30 02/20/25 14:00 02/20/25 15:00 02/20/25 15:00 Temperature Pulse Rate 90 92 91 Respiratory Rate 18 16 Blood Pressure Pulse Oximetry Oxygen Delivery Fraction of Inspired Oxygen 02/20/25 16:00 02/20/25 16:00 02/20/25 16:00 Temperature 99.7 F H Pulse Rate 90 96 94 Respiratory Rate 16 18 18 Blood Pressure 125/96 H Pulse Oximetry 98 Oxygen Delivery Fraction of Inspired Oxygen 02/20/25 16:00 02/20/25 16:00 02/20/25 16:00 Temperature Pulse Rate 93 93 Respiratory Rate 20 Blood Pressure Pulse Oximetry 99 Oxygen Delivery Mechanical Ventilation Fraction of Inspired Oxygen 30 30 02/20/25 16:50 02/20/25 16:55 02/20/25 17:15 Temperature Pulse Rate 94 97 98 Respiratory Rate 18 17 19 Blood Pressure Pulse Oximetry Oxygen Delivery Fraction of Inspired Oxygen 02/20/25 17:18 02/20/25 17:35 02/20/25 17:38 Temperature Pulse Rate 98 97 93 Respiratory Rate 18 18 Blood Pressure Pulse Oximetry 99 Oxygen Delivery Mechanical Ventilation Fraction of Inspired Oxygen 30 02/20/25 18:00 02/20/25 18:00 02/20/25 18:47 Temperature 100.3 F H Pulse Rate 89 91 90 Respiratory Rate 17 19 Blood Pressure 125/72 Pulse Oximetry 98 Oxygen Delivery Fraction of Inspired Oxygen 02/20/25 18:47 02/20/25 20:00 02/20/25 20:00 Temperature Pulse Rate 90 88 Respiratory Rate 19 Blood Pressure Pulse Oximetry Oxygen Delivery Fraction of Inspired Oxygen 30 02/20/25 20:00 02/20/25 20:00 02/20/25 20:00 Temperature 100.6 F H Pulse Rate 90 90 Respiratory Rate 17 17 Blood Pressure 125/74 Pulse Oximetry 99 99 Oxygen Delivery Mechanical Ventilation Fraction of Inspired Oxygen 30 02/20/25 20:00 02/20/25 20:30 02/20/25 22:00 Temperature Pulse Rate 90 98 92 Respiratory Rate 17 16 Blood Pressure Pulse Oximetry 99 Oxygen Delivery Mechanical Ventilation Fraction of Inspired Oxygen 30 02/20/25 22:00 02/20/25 22:00 02/20/25 22:00 Temperature 100.1 F H Pulse Rate 92 92 92 Respiratory Rate 16 16 Blood Pressure 125/72 Pulse Oximetry 100 Oxygen Delivery Fraction of Inspired Oxygen 02/20/25 22:13 02/21/25 00:00 02/21/25 00:00 Temperature Pulse Rate 87 86 86 Respiratory Rate 17 17 Blood Pressure Pulse Oximetry 100 Oxygen Delivery Mechanical Ventilation Fraction of Inspired Oxygen 30 02/21/25 00:00 02/21/25 00:00 02/21/25 00:00 Temperature 99.7 F H Pulse Rate 83 82 Respiratory Rate 15 Blood Pressure 126/74 Pulse Oximetry 99 Oxygen Delivery Fraction of Inspired Oxygen 30 02/21/25 00:00 02/21/25 01:04 02/21/25 01:05 Temperature Pulse Rate 80 80 Respiratory Rate 14 14 Blood Pressure Pulse Oximetry 99 Oxygen Delivery Mechanical Ventilation Fraction of Inspired Oxygen 30 02/21/25 02:00 02/21/25 02:00 02/21/25 02:00 Temperature 99.7 F H Pulse Rate 83 72 72 Respiratory Rate 15 14 Blood Pressure 126/74 Pulse Oximetry 99 Oxygen Delivery Fraction of Inspired Oxygen 02/21/25 02:00 02/21/25 02:25 02/21/25 02:25 Temperature Pulse Rate 72 71 71 Respiratory Rate 14 14 Blood Pressure Pulse Oximetry 98 Oxygen Delivery Mechanical Ventilation Fraction of Inspired Oxygen 30 02/21/25 02:35 02/21/25 04:00 02/21/25 04:00 Temperature Pulse Rate 74 80 78 Respiratory Rate 14 14 Blood Pressure Pulse Oximetry Oxygen Delivery Fraction of Inspired Oxygen 02/21/25 04:00 02/21/25 04:00 02/21/25 04:00 Temperature Pulse Rate 78 Respiratory Rate 14 Blood Pressure Pulse Oximetry 98 Oxygen Delivery Mechanical Ventilation Fraction of Inspired Oxygen 30 30 02/21/25 04:00 02/21/25 05:08 02/21/25 06:00 Temperature 97.7 F 97.9 F Pulse Rate 78 76 74 Respiratory Rate 14 14 Blood Pressure 118/71 107/67 Pulse Oximetry 98 99 99 Oxygen Delivery Mechanical Ventilation Fraction of Inspired Oxygen 30 02/21/25 06:00 02/21/25 06:00 02/21/25 06:00 Temperature Pulse Rate 74 74 75 Respiratory Rate 14 14 Blood Pressure Pulse Oximetry Oxygen Delivery Fraction of Inspired Oxygen 02/21/25 06:35 02/21/25 06:36 02/21/25 07:44 Temperature Pulse Rate 69 69 80 Respiratory Rate 14 14 17 Blood Pressure Pulse Oximetry Oxygen Delivery Fraction of Inspired Oxygen 02/21/25 07:47 02/21/25 07:53 Temperature Pulse Rate 78 84 Respiratory Rate 17 Blood Pressure Pulse Oximetry 100 Oxygen Delivery Mechanical Ventilation Fraction of Inspired Oxygen 30 Intake/Output Intake/Output: Intake & Output 02/18/25 02/19/25 02/20/25 02/21/25 23:59 23:59 23:59 23:59 Intake Total 667.2 4155.0 2774.4 859.1 Output Total 1600 1850 1200 700 Balance -932.8 2305.0 1574.4 159.1 Meds/Results Medications: Active Medications Generic Name Dose Route Start Last Admin Trade Name Freq PRN Reason Stop Dose Admin Acetaminophen 650 mg 02/16/25 14:42 Acetaminophen 325 Mg Tablet PO Q4H PRN Mild Pain (1-3) or Fever Hydrocodone Bitart/Acetaminophen 1 tab 02/16/25 22:21 Hydrocodone/Acetaminophen (*Crx) 5-325 Mg Tablet PO Q12H PRN Pain Rated 4-6 Albuterol/Ipratropium 3 ml 02/19/25 08:00 02/21/25 07:43 Ipratropium 0.5 Mg/Albuterol Sulfate 2.5 Mg Ampul.Neb 3 Ml INHALATION 3 ml Q6HRT [facility] Administration Calcium Carbonate 500 mg 02/17/25 09:00 02/18/25 18:52 Calcium Carbonate (Oscal) 500 Mg Tablet PO Not Given BID [facility] Cholestyramine Resin 4 gm 02/17/25 18:00 02/20/25 18:48 Cholestyramine Light 4 Gm Powd.Pack PO 4 gm BID@1000,1800 [facility] Administration Dexamethasone 4 mg 02/20/25 09:00 02/20/25 08:54 Dexamethasone 4 Mg Tablet PO 4 mg DAILY [facility] Administration Ferrous Sulfate 325 mg 02/20/25 09:00 02/20/25 16:33 Ferrous Sulfate [address] BY MOUTH 325 mg BID [facility] Administration Folic Acid 1 mg 02/17/25 09:00 02/20/25 08:54 Folic Acid 1 Mg Tablet PO 1 mg DAILY [facility] Administration Heparin Sodium (Beef Lung) 50 units 02/19/25 09:00 02/20/25 17:26 Heparin Flush 50 Units/5 Ml Syringe IV PUSH Not Given QAM [facility] Heparin Sodium (Beef Lung) 50 units 02/18/25 19:00 Heparin Flush 50 Units/5 Ml Syringe IV PUSH PRN PRN after intermittent infusion Heparin Sodium (Beef Lung) 50 units 02/18/25 19:00 Heparin Flush 50 Units/5 Ml Syringe IV PUSH PRN PRN after blood draws Heparin Sodium (Porcine) 500 units 02/18/25 19:00 Heparin Sodium Lock Flush 500 Units/5 Ml Syringe IV PUSH PRN PRN see comments below Propofol 100 mls @ 14.448 mls/hr 02/18/25 18:45 02/21/25 06:36 Diprivan IV CONT 40 mcg/kg/min .Q6H56M [facility] 14.45 mls/hr Administration Protocol 40 MCG/KG/MIN Midazolam HCl 100 mg in 100 mls @ 1 mls/hr 02/19/25 13:35 02/21/25 06:00 Versed 100 Mg/Ns 100 Ml IV CONT 1 mg/hr .Q72H [facility] 1 mls/hr Titration Protocol 1 MG/HR Meropenem 2 gm/ Sodium 140 mls @ 280 mls/hr 02/21/25 08:00 Chloride IVPB Q12H [facility] Potassium Phosphate 40 mmol/ 263.3333 mls @ 43.889 mls/hr 02/21/25 09:00 Sodium Chloride IVPB 02/21/25 14:59 ONCE ONE Loperamide HCl 2 mg 02/17/25 00:04 02/18/25 15:38 Loperamide Hcl 2 Mg Capsule PO 2 mg TID PRN Administration Diarrhea Melatonin 10 mg 02/18/25 21:00 Melatonin 5 Mg Tablet PO [facility] Miscellaneous Information 1 each 02/20/25 00:01 02/21/25 00:42 Please Renew Propofol_. Per [employer] Procedure, It Will Discontinue If Not Renewed XX 03/22/25 00:00 1 each CLARIFY [facility] Administration Multi-Ingred Cream/Lotion/Oil/Oint 1 applic 02/18/25 21:00 02/20/25 20:30 Mineral Oil/White Petrolatum Ointment EACH EYE 1 applic Q12HR [facility] Administration Nitroglycerin 0.4 mg 02/18/25 16:44 02/18/25 17:15 Nitroglycerin Sl 0.4 Mg Tablet SUBLINGUAL 0.4 mg Q5MIN PRN Administration Chest Pain Ondansetron HCl 4 mg 02/16/25 14:42 Ondansetron Inj 4 Mg/2 Ml Vial IV PUSH Q4H PRN Nausea Pantoprazole Sodium 40 mg 02/19/25 21:00 02/20/25 20:30 Pantoprazole Sodium Iv 40 Mg Vial IV PUSH 40 mg Q12HR [facility] Administration Sodium Chloride 10 ml 02/18/25 22:00 02/21/25 06:30 Central Line Flush IV PUSH 10 ml Q8HR [facility] Administration Sodium Chloride 10 ml 02/19/25 14:00 02/21/25 06:00 Central Line Flush IV PUSH 10 ml Q8HR [facility] Administration Sodium Chloride 10 ml 02/19/25 10:47 Central Line Flush IV PUSH PRN PRN with TPN bag changes Sodium Chloride 20 ml 02/19/25 10:47 Central Line Flush IV PUSH PRN PRN after blood draws Vancomycin HCl 1 each 02/18/25 19:15 Vancomycin For Acute Kidney Injury IVPB PRN PRN Vancomycin Protocol Radiology Results: ITS Impressions Renal Ultrasound 02/17/25 08:54 IMPRESSION: 1. Normal kidneys without hydronephrosis. Abdomen X-Ray 02/18/25 19:29 IMPRESSION: Orogastric tube in good position and ready for immediate use. Head CT 02/19/25 09:07 IMPRESSION: No acute intracranial findings. Chest/Abdomen/Pelvis CT 02/19/25 09:17 IMPRESSION: CHEST: 1. Bilateral moderate pleural effusion with adjacent atelectasis versus pneumonia. 2. Trace of pericardial effusion. 3. Sclerotic changes in the superior endplate of T1. MRI evaluation to exclude acute fracture. ABDOMEN/PELVIS: 1. No evidence of appendicitis, diverticulitis or intestinal obstruction. No kidney stones. Venous Doppler Study 02/20/25 10:00 IMPRESSION: 1. Patent bilateral upper extremity veins. No evidence of venous thrombosis. Chest X-Ray 02/21/25 07:13 Impression: Hazy bilateral airspace disease, suggestive of mild to moderate pulmonary edema. Correlate clinically for pneumonia. Support tubes, as above. Labs Labs: Laboratory Results - last 24 hr 02/20/25 02/20/25 02/20/25 05:48 11:15 14:52 WBC RBC Hgb 8.8 L Hct 27.0 L MCV MCH MCHC RDW Plt Count MPV Immature Gran % (Auto) Neut % (Auto) Lymph % (Auto) Christian % (Auto) Eos % (Auto) Baso % (Auto) Lymph # (Auto) Christian # (Auto) Eos # (Auto) Baso # (Auto) Abs Immat Gran (auto) Absolute Neuts (auto) Absolute Nucleated RBC Nucleated RBC % Puncture Site ABG pH ABG pCO2 ABG pO2 ABG PO2/FiO2 Ratio ABG HCO3 ABG O2 Saturation ABG O2 Content ABG Base Excess A-a Gradient Oxyhemoglobin Carboxyhemoglobin Methemoglobin Reduced Hemoglobin Total Hemoglobin O2 Delivery Device O2 Liters/Min Minute Volume Vent Rate Vent Mode FiO2 Tidal Volume PEEP Peak Inspir Pressure Pressure Support Sodium Potassium 3.8 Chloride Carbon Dioxide Anion Gap BUN Creatinine Estim Creat Clear Calc Estimated GFR Glucose POC Capillary Glucose 120 H Calcium Phosphorus Magnesium Total Bilirubin AST ALT Alkaline Phosphatase Total Protein Albumin Triglycerides Random Vancomycin Crossmatch See Detail 02/20/25 02/20/25 02/20/25 17:54 18:36 19:54 WBC RBC Hgb Hct MCV MCH MCHC RDW Plt Count MPV Immature Gran % (Auto) Neut % (Auto) Lymph % (Auto) Christian % (Auto) Eos % (Auto) Baso % (Auto) Lymph # (Auto) Christian # (Auto) Eos # (Auto) Baso # (Auto) Abs Immat Gran (auto) Absolute Neuts (auto) Absolute Nucleated RBC Nucleated RBC % Puncture Site ABG pH ABG pCO2 ABG pO2 ABG PO2/FiO2 Ratio ABG HCO3 ABG O2 Saturation ABG O2 Content ABG Base Excess A-a Gradient Oxyhemoglobin Carboxyhemoglobin Methemoglobin Reduced Hemoglobin Total Hemoglobin O2 Delivery Device O2 Liters/Min Minute Volume Vent Rate Vent Mode FiO2 Tidal Volume PEEP Peak Inspir Pressure Pressure Support Sodium Potassium Chloride Carbon Dioxide Anion Gap BUN Creatinine Estim Creat Clear Calc Estimated GFR Glucose POC Capillary Glucose 151 H Calcium Phosphorus Magnesium Total Bilirubin AST ALT Alkaline Phosphatase Total Protein Albumin Triglycerides 95 Random Vancomycin 11.4 Crossmatch 02/21/25 02/21/25 02/21/25 00:10 04:14 04:51 WBC 22.3 H RBC 2.76 L Hgb 8.4 L Hct 25.7 L MCV 93.1 MCH 30.4 MCHC 32.7 RDW 16.5 H Plt Count 175 MPV 9.2 Immature Gran % (Auto) 9.4 H Neut % (Auto) 76.0 H Lymph % (Auto) 7.3 L Christian % (Auto) 7.0 Eos % (Auto) 0.0 Baso % (Auto) 0.3 Lymph # (Auto) 1.64 Christian # (Auto) 1.6 H Eos # (Auto) 0.0 Baso # (Auto) 0.1 Abs Immat Gran (auto) 2.09 H Absolute Neuts (auto) 17.0 H Absolute Nucleated RBC 0.040 H Nucleated RBC % 0.2 Puncture Site Right radial ABG pH 7.461 H ABG pCO2 36.7 ABG pO2 87.6 ABG PO2/FiO2 Ratio 2.92 ABG HCO3 25.6 ABG O2 Saturation 97.1 ABG O2 Content 13.2 L ABG Base Excess 1.8 A-a Gradient 83.2 Oxyhemoglobin 95.7 Carboxyhemoglobin 0.3 Methemoglobin 0.3 Reduced Hemoglobin 3.7 Total Hemoglobin 9.7 L O2 Delivery Device Ventilator O2 Liters/Min Not Reportable Minute Volume Not Reportable Vent Rate 14 Vent Mode Cmv FiO2 30 Tidal Volume 350 PEEP 5 Peak Inspir Pressure Not Reportable Pressure Support Not Reportable Sodium 140 Potassium 3.2 L Chloride 107 Carbon Dioxide 27 Anion Gap 6 BUN 12 Creatinine 1.00 Estim Creat Clear Calc 43 Estimated GFR 55 L Glucose 127 H POC Capillary Glucose 141 H Calcium 7.8 L Phosphorus 1.1 L Magnesium 1.7 Total Bilirubin 0.2 AST 25 ALT 14 Alkaline Phosphatase 103 Total Protein 5.5 L Albumin 3.4 L Triglycerides Random Vancomycin Crossmatch 02/21/25 06:11 WBC RBC Hgb Hct MCV MCH MCHC RDW Plt Count MPV Immature Gran % (Auto) Neut % (Auto) Lymph % (Auto) Christian % (Auto) Eos % (Auto) Baso % (Auto) Lymph # (Auto) Christian # (Auto) Eos # (Auto) Baso # (Auto) Abs Immat Gran (auto) Absolute Neuts (auto) Absolute Nucleated RBC Nucleated RBC % Puncture Site ABG pH ABG pCO2 ABG pO2 ABG PO2/FiO2 Ratio ABG HCO3 ABG O2 Saturation ABG O2 Content ABG Base Excess A-a Gradient Oxyhemoglobin Carboxyhemoglobin Methemoglobin Reduced Hemoglobin Total Hemoglobin O2 Delivery Device O2 Liters/Min Minute Volume Vent Rate Vent Mode FiO2 Tidal Volume PEEP Peak Inspir Pressure Pressure Support Sodium Potassium Chloride Carbon Dioxide Anion Gap BUN Creatinine Estim Creat Clear Calc Estimated GFR Glucose POC Capillary Glucose 119 H Calcium Phosphorus Magnesium Total Bilirubin AST ALT Alkaline Phosphatase Total Protein Albumin Triglycerides Random Vancomycin Crossmatch
--- NOTE | 2025-02-21 09:13 | P.PNCA_ITS ---
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 New onset systolic heart failure -would resume her losartan at lower dose of 25 mg p.o. daily when okay from renal perspective -in efforts of early extubation, would recommend keeping her ins and outs net negative using Lasix p.r.n. -when she is more stable, we can initiate metoprolol succinate 25 mg p.o. daily -cardiac catheterization to define a coronary anatomy is not ideal at this time given recent acute anemia requiring transfusion along with her recently recovering severe renal dysfunction -eventually, if in the alignment with her goals of care, we can discuss cardiac catheterization in the outpatient setting to ensure no multivessel coronary artery disease as well as repeating transthoracic echocardiogram 3 months after guideline directed medical therapy Troponin elevation -unlikely secondary to plaque rupture -given that she is hemodynamically stable and requiring recent blood transfusion for acute anemia, would avoid anticoagulation as risk outweighs benefits at this time Acute anemia -status post transfusion 1 unit packed red blood cells on 02/20/2025 Subjective Date/time seen: 02/21/25 09:13 Interval history: Intubated and sedated Review of Systems Review of Systems: ROS unobtainable: Yes unobtainable due to endotracheal tube and unobtainable due to medical condition Exam Const: Other: Intubated and sedated HENMT: Other: ETT in place Neck: Neck: no JVD Resp: Other: Mechanical ventilation noise Cardio: Rate: regular rate Rhythm: regular rhythm GI: GI Palp: Yes Soft to palpation Extrem: General: no pedal edema Objective Data Vital Signs Vital Signs: Vital Signs - 24 hr 02/20/25 10:00 02/20/25 10:00 02/20/25 10:00 Temperature 36.5 C Pulse Rate 89 80 86 Respiratory Rate 18 15 15 Blood Pressure 119/75 Pulse Oximetry 100 Oxygen Delivery Fraction of Inspired Oxygen 02/20/25 10:00 02/20/25 10:09 02/20/25 10:22 Temperature 36.5 C Pulse Rate 89 85 87 Respiratory Rate 17 Blood Pressure 119/75 Pulse Oximetry 100 97 Oxygen Delivery Mechanical Ventilation Fraction of Inspired Oxygen 30 02/20/25 11:05 02/20/25 11:26 02/20/25 12:00 Temperature 36.7 C 37.1 C Pulse Rate 86 86 88 Respiratory Rate 17 15 19 Blood Pressure 138/83 122/77 Pulse Oximetry 98 99 Oxygen Delivery Fraction of Inspired Oxygen 02/20/25 12:00 02/20/25 12:00 02/20/25 12:00 Temperature Pulse Rate 93 Respiratory Rate Blood Pressure Pulse Oximetry 99 Oxygen Delivery Mechanical Ventilation Fraction of Inspired Oxygen 30 30 02/20/25 12:43 02/20/25 13:05 02/20/25 13:43 Temperature Pulse Rate 85 85 80 Respiratory Rate 15 15 16 Blood Pressure Pulse Oximetry Oxygen Delivery Fraction of Inspired Oxygen 02/20/25 13:44 02/20/25 14:00 02/20/25 14:00 Temperature 37.4 C Pulse Rate 81 94 90 Respiratory Rate 19 Blood Pressure 135/86 Pulse Oximetry 99 98 Oxygen Delivery Mechanical Ventilation Fraction of Inspired Oxygen 30 02/20/25 15:00 02/20/25 15:00 02/20/25 16:00 Temperature 37.6 C H Pulse Rate 92 91 90 Respiratory Rate 18 16 16 Blood Pressure 125/96 H Pulse Oximetry 98 Oxygen Delivery Fraction of Inspired Oxygen 02/20/25 16:00 02/20/25 16:00 02/20/25 16:00 Temperature Pulse Rate 96 94 93 Respiratory Rate 18 18 Blood Pressure Pulse Oximetry Oxygen Delivery Fraction of Inspired Oxygen 02/20/25 16:00 02/20/25 16:00 02/20/25 16:50 Temperature Pulse Rate 93 94 Respiratory Rate 20 18 Blood Pressure Pulse Oximetry 99 Oxygen Delivery Mechanical Ventilation Fraction of Inspired Oxygen 30 30 02/20/25 16:55 02/20/25 17:15 02/20/25 17:18 Temperature Pulse Rate 97 98 98 Respiratory Rate 17 19 Blood Pressure Pulse Oximetry 99 Oxygen Delivery Mechanical Ventilation Fraction of Inspired Oxygen 30 02/20/25 17:35 02/20/25 17:38 02/20/25 18:00 Temperature 37.9 C H Pulse Rate 97 93 89 Respiratory Rate 18 18 17 Blood Pressure 125/72 Pulse Oximetry 98 Oxygen Delivery Fraction of Inspired Oxygen 02/20/25 18:00 02/20/25 18:47 02/20/25 18:47 Temperature Pulse Rate 91 90 90 Respiratory Rate 19 19 Blood Pressure Pulse Oximetry Oxygen Delivery Fraction of Inspired Oxygen 02/20/25 20:00 02/20/25 20:00 02/20/25 20:00 Temperature Pulse Rate 88 Respiratory Rate Blood Pressure Pulse Oximetry 99 Oxygen Delivery Mechanical Ventilation Fraction of Inspired Oxygen 30 30 02/20/25 20:00 02/20/25 20:00 02/20/25 20:00 Temperature 38.1 C H Pulse Rate 90 90 90 Respiratory Rate 17 17 17 Blood Pressure 125/74 Pulse Oximetry 99 Oxygen Delivery Fraction of Inspired Oxygen 02/20/25 20:30 02/20/25 22:00 02/20/25 22:00 Temperature Pulse Rate 98 92 92 Respiratory Rate 16 16 Blood Pressure Pulse Oximetry 99 Oxygen Delivery Mechanical Ventilation Fraction of Inspired Oxygen 30 02/20/25 22:00 02/20/25 22:00 02/20/25 22:13 Temperature 37.8 C H Pulse Rate 92 92 87 Respiratory Rate 16 Blood Pressure 125/72 Pulse Oximetry 100 100 Oxygen Delivery Mechanical Ventilation Fraction of Inspired Oxygen 30 02/21/25 00:00 02/21/25 00:00 02/21/25 00:00 Temperature 37.6 C H Pulse Rate 86 86 83 Respiratory Rate 17 17 15 Blood Pressure 126/74 Pulse Oximetry 99 Oxygen Delivery Fraction of Inspired Oxygen 02/21/25 00:00 02/21/25 00:00 02/21/25 00:00 Temperature Pulse Rate 82 Respiratory Rate Blood Pressure Pulse Oximetry 99 Oxygen Delivery Mechanical Ventilation Fraction of Inspired Oxygen 30 30 02/21/25 01:04 02/21/25 01:05 02/21/25 02:00 Temperature 37.6 C H Pulse Rate 80 80 83 Respiratory Rate 14 14 15 Blood Pressure 126/74 Pulse Oximetry 99 Oxygen Delivery Fraction of Inspired Oxygen 02/21/25 02:00 02/21/25 02:00 02/21/25 02:00 Temperature Pulse Rate 72 72 72 Respiratory Rate 14 14 Blood Pressure Pulse Oximetry Oxygen Delivery Fraction of Inspired Oxygen 02/21/25 02:25 02/21/25 02:25 02/21/25 02:35 Temperature Pulse Rate 71 71 74 Respiratory Rate 14 14 Blood Pressure Pulse Oximetry 98 Oxygen Delivery Mechanical Ventilation Fraction of Inspired Oxygen 02/21/25 04:00 02/21/25 04:00 02/21/25 04:00 Temperature Pulse Rate 80 78 78 Respiratory Rate 14 14 Blood Pressure Pulse Oximetry Oxygen Delivery Fraction of Inspired Oxygen 02/21/25 04:00 02/21/25 04:00 02/21/25 04:00 Temperature 36.5 C Pulse Rate 78 Respiratory Rate 14 Blood Pressure 118/71 Pulse Oximetry 98 98 Oxygen Delivery Mechanical Ventilation Fraction of Inspired Oxygen 30 02/21/25 05:08 02/21/25 06:00 02/21/25 06:00 Temperature 36.6 C Pulse Rate 76 74 74 Respiratory Rate 14 14 Blood Pressure 107/67 Pulse Oximetry 99 99 Oxygen Delivery Mechanical Ventilation Fraction of Inspired Oxygen 02/21/25 06:00 02/21/25 06:00 02/21/25 06:35 Temperature Pulse Rate 74 75 69 Respiratory Rate 14 14 Blood Pressure Pulse Oximetry Oxygen Delivery Fraction of Inspired Oxygen 02/21/25 06:36 02/21/25 07:44 02/21/25 07:47 Temperature Pulse Rate 69 80 78 Respiratory Rate 14 17 Blood Pressure Pulse Oximetry 100 Oxygen Delivery Mechanical Ventilation Fraction of Inspired Oxygen 02/21/25 07:53 Temperature Pulse Rate 84 Respiratory Rate 17 Blood Pressure Pulse Oximetry Oxygen Delivery Fraction of Inspired Oxygen Intake/Output Intake/Output: Intake & Output 02/18/25 02/19/25 02/20/25 02/21/25 23:59 23:59 23:59 23:59 Intake Total 667.2 4155.0 2774.4 859.1 Output Total 1600 1850 1200 700 Balance -932.8 2305.0 1574.4 159.1 Meds/Results Medications: Active Medications Generic Name Dose Route Start Last Admin Trade Name Freq PRN Reason Stop Dose Admin Acetaminophen 650 mg 02/16/25 14:42 Acetaminophen 325 Mg Tablet PO Q4H PRN Mild Pain (1-3) or Fever Hydrocodone Bitart/Acetaminophen 1 tab 02/16/25 22:21 Hydrocodone/Acetaminophen (*Crx) 5-325 Mg Tablet PO Q12H PRN Pain Rated 4-6 Albuterol/Ipratropium 3 ml 02/19/25 08:00 02/21/25 07:43 Ipratropium 0.5 Mg/Albuterol Sulfate 2.5 Mg Ampul.Neb 3 Ml INHALATION 3 ml Q6HRT LIS[place]TE Administration Calcium Carbonate 500 mg 02/17/25 09:00 02/18/25 18:52 Calcium Carbonate (Oscal) 500 Mg Tablet PO Not Given BID LISSETTE Cholestyramine Resin 4 gm 02/17/25 18:00 02/20/25 18:48 Cholestyramine Light 4 Gm Powd.Pack PO 4 gm BID@1000,1800 LISSETTE Administration Dexamethasone 4 mg 02/20/25 09:00 02/20/25 08:54 Dexamethasone 4 Mg Tablet PO 4 mg DAILY LISSETTE Administration Ferrous Sulfate 325 mg 02/20/25 09:00 02/20/25 16:33 Ferrous Sulfate [address] BY MOUTH 325 mg BID LIS[place]TE Administration Folic Acid 1 mg 02/17/25 09:00 02/20/25 08:54 Folic Acid 1 Mg Tablet PO 1 mg DAILY LISSETTE Administration Heparin Sodium (Beef Lung) 50 units 02/19/25 09:00 02/20/25 17:26 Heparin Flush 50 Units/5 Ml Syringe IV PUSH Not Given QAM LISSETTE Heparin Sodium (Beef Lung) 50 units 02/18/25 19:00 Heparin Flush 50 Units/5 Ml Syringe IV PUSH PRN PRN after intermittent infusion Heparin Sodium (Beef Lung) 50 units 02/18/25 19:00 Heparin Flush 50 Units/5 Ml Syringe IV PUSH PRN PRN after blood draws Heparin Sodium (Porcine) 500 units 02/18/25 19:00 Heparin Sodium Lock Flush 500 Units/5 Ml Syringe IV PUSH PRN PRN see comments below Propofol 100 mls @ 14.448 mls/hr 02/18/25 18:45 02/21/25 06:36 Diprivan IV CONT 40 mcg/kg/min .Q6H56M LIS[place]TE 14.45 mls/hr Administration Protocol 40 MCG/KG/MIN Midazolam HCl 100 mg in 100 mls @ 1 mls/hr 02/19/25 13:35 02/21/25 06:00 Versed 100 Mg/Ns 100 Ml IV CONT 1 mg/hr .Q72H L[place]TE 1 mls/hr Titration Protocol 1 MG/HR Meropenem 2 gm/ Sodium 140 mls @ 280 mls/hr 02/21/25 08:00 Chloride IVPB Q12H L[place]TE Potassium Phosphate 40 mmol/ 263.3333 mls @ 43.889 mls/hr 02/21/25 09:00 Sodium Chloride IVPB 02/21/25 14:59 ONCE ONE Loperamide HCl 2 mg 02/17/25 00:04 02/18/25 15:38 Loperamide Hcl 2 Mg Capsule PO 2 mg TID PRN Administration Diarrhea Melatonin 10 mg 02/18/25 21:00 Melatonin 5 Mg Tablet PO HS LIS[facility]TE Miscellaneous Information 1 each 02/20/25 00:01 02/21/25 00:42 Please Renew Propofol_. Per [employer] Procedure, It Will Discontinue If Not Renewed XX 03/22/25 00:00 1 each CLARIFY L[place]TE Administration Multi-Ingred Cream/Lotion/Oil/Oint 1 applic 02/18/25 21:00 02/20/25 20:30 Mineral Oil/White Petrolatum Ointment EACH EYE 1 applic Q12HR [place] Administration Nitroglycerin 0.4 mg 02/18/25 16:44 02/18/25 17:15 Nitroglycerin Sl 0.4 Mg Tablet SUBLINGUAL 0.4 mg Q5MIN PRN Administration Chest Pain Ondansetron HCl 4 mg 02/16/25 14:42 Ondansetron Inj 4 Mg/2 Ml Vial IV PUSH Q4H PRN Nausea Pantoprazole Sodium 40 mg 02/19/25 21:00 02/20/25 20:30 Pantoprazole Sodium Iv 40 Mg Vial IV PUSH 40 mg Q12HR [place] Administration Sodium Chloride 10 ml 02/18/25 22:00 02/21/25 06:30 Central Line Flush IV PUSH 10 ml Q8HR [place]IS[place] Administration Sodium Chloride 10 ml 02/19/25 14:00 02/21/25 06:00 Central Line Flush IV PUSH 10 ml Q8HR [place] Administration Sodium Chloride 10 ml 02/19/25 10:47 Central Line Flush IV PUSH PRN PRN with TPN bag changes Sodium Chloride 20 ml 02/19/25 10:47 Central Line Flush IV PUSH PRN PRN after blood draws Vancomycin HCl 1 each 02/18/25 19:15 Vancomycin For Acute Kidney Injury IVPB PRN PRN Vancomycin Protocol Radiology Results: ITS Impressions Renal Ultrasound 02/17/25 08:54 IMPRESSION: 1. Normal kidneys without hydronephrosis. Abdomen X-Ray 02/18/25 19:29 IMPRESSION: Orogastric tube in good position and ready for immediate use. Head CT 02/19/25 09:07 IMPRESSION: No acute intracranial findings. Chest/Abdomen/Pelvis CT 02/19/25 09:17 IMPRESSION: CHEST: 1. Bilateral moderate pleural effusion with adjacent atelectasis versus pneumonia. 2. Trace of pericardial effusion. 3. Sclerotic changes in the superior endplate of T1. MRI evaluation to exclude acute fracture. ABDOMEN/PELVIS: 1. No evidence of appendicitis, diverticulitis or intestinal obstruction. No kidney stones. Venous Doppler Study 02/20/25 10:00 IMPRESSION: 1. Patent bilateral upper extremity veins. No evidence of venous thrombosis. Chest X-Ray 02/21/25 07:13 Impression: Hazy bilateral airspace disease, suggestive of mild to moderate pulmonary edema. Correlate clinically for pneumonia. Support tubes, as above. Labs Labs: Laboratory Results - last 24 hr 02/20/25 02/20/25 02/20/25 05:48 11:15 14:52 WBC RBC Hgb 8.8 L Hct 27.0 L MCV MCH MCHC RDW Plt Count MPV Immature Gran % (Auto) Neut % (Auto) Lymph % (Auto) [place] % (Auto) Eos % (Auto) Baso % (Auto) Lymph # (Auto) [place] # (Auto) Eos # (Auto) Baso # (Auto) Abs Immat Gran (auto) Absolute Neuts (auto) Absolute Nucleated RBC Nucleated RBC % Puncture Site ABG pH ABG pCO2 ABG pO2 ABG PO2/FiO2 Ratio ABG HCO3 ABG O2 Saturation ABG O2 Content ABG Base Excess A-a Gradient Oxyhemoglobin Carboxyhemoglobin Methemoglobin Reduced Hemoglobin Total Hemoglobin O2 Delivery Device O2 Liters/Min Minute Volume Vent Rate Vent Mode FiO2 Tidal Volume PEEP Peak Inspir Pressure Pressure Support Sodium Potassium 3.8 Chloride Carbon Dioxide Anion Gap BUN Creatinine Estim Creat Clear Calc Estimated GFR Glucose POC Capillary Glucose 120 H Calcium Phosphorus Magnesium Total Bilirubin AST ALT Alkaline Phosphatase Total Protein Albumin Triglycerides Random Vancomycin Crossmatch See Detail 02/20/25 02/20/25 02/20/25 17:54 18:36 19:54 WBC RBC Hgb Hct MCV MCH MCHC RDW Plt Count MPV Immature Gran % (Auto) Neut % (Auto) Lymph % (Auto) [place] % (Auto) Eos % (Auto) Baso % (Auto) Lymph # (Auto) [place] # (Auto) Eos # (Auto) Baso # (Auto) Abs Immat Gran (auto) Absolute Neuts (auto) Absolute Nucleated RBC Nucleated RBC % Puncture Site ABG pH ABG pCO2 ABG pO2 ABG PO2/FiO2 Ratio ABG HCO3 ABG O2 Saturation ABG O2 Content ABG Base Excess A-a Gradient Oxyhemoglobin Carboxyhemoglobin Methemoglobin Reduced Hemoglobin Total Hemoglobin O2 Delivery Device O2 Liters/Min Minute Volume Vent Rate Vent Mode FiO2 Tidal Volume PEEP Peak Inspir Pressure Pressure Support Sodium Potassium Chloride Carbon Dioxide Anion Gap BUN Creatinine Estim Creat Clear Calc Estimated GFR Glucose POC Capillary Glucose 151 H Calcium Phosphorus Magnesium Total Bilirubin AST ALT Alkaline Phosphatase Total Protein Albumin Triglycerides 95 Random Vancomycin 11.4 Crossmatch 02/21/25 02/21/25 02/21/25 00:10 04:14 04:51 WBC 22.3 H RBC 2.76 L Hgb 8.4 L Hct 25.7 L MCV 93.1 MCH 30.4 MCHC 32.7 RDW 16.5 H Plt Count 175 MPV 9.2 Immature Gran % (Auto) 9.4 H Neut % (Auto) 76.0 H Lymph % (Auto) 7.3 L [place] % (Auto) 7.0 Eos % (Auto) 0.0 Baso % (Auto) 0.3 Lymph # (Auto) 1.64 [place] # (Auto) 1.6 H Eos # (Auto) 0.0 Baso # (Auto) 0.1 Abs Immat Gran (auto) 2.09 H Absolute Neuts (auto) 17.0 H Absolute Nucleated RBC 0.040 H Nucleated RBC % 0.2 Puncture Site Right radial ABG pH 7.461 H ABG pCO2 36.7 ABG pO2 87.6 ABG PO2/FiO2 Ratio 2.92 ABG HCO3 25.6 ABG O2 Saturation 97.1 ABG O2 Content 13.2 L ABG Base Excess 1.8 A-a Gradient 83.2 Oxyhemoglobin 95.7 Carboxyhemoglobin 0.3 Methemoglobin 0.3 Reduced Hemoglobin 3.7 Total Hemoglobin 9.7 L O2 Delivery Device Ventilator O2 Liters/Min Not Reportable Minute Volume Not Reportable Vent Rate 14 Vent Mode Cmv FiO2 30 Tidal Volume 350 PEEP 5 Peak Inspir Pressure Not Reportable Pressure Support Not Reportable Sodium 140 Potassium 3.2 L Chloride 107 Carbon Dioxide 27 Anion Gap 6 BUN 12 Creatinine 1.00 Estim Creat Clear Calc 43 Estimated GFR 55 L Glucose 127 H POC Capillary Glucose 141 H Calcium 7.8 L Phosphorus 1.1 L Magnesium 1.7 Total Bilirubin 0.2 AST 25 ALT 14 Alkaline Phosphatase 103 Total Protein 5.5 L Albumin 3.4 L Triglycerides Random Vancomycin Crossmatch 02/21/25 06:11 WBC RBC Hgb Hct MCV MCH MCHC RDW Plt Count MPV Immature Gran % (Auto) Neut % (Auto) Lymph % (Auto) [place] % (Auto) Eos % (Auto) Baso % (Auto) Lymph # (Auto) [place] # (Auto) Eos # (Auto) Baso # (Auto) Abs Immat Gran (auto) Absolute Neuts (auto) Absolute Nucleated RBC Nucleated RBC % Puncture Site ABG pH ABG pCO2 ABG pO2 ABG PO2/FiO2 Ratio ABG HCO3 ABG O2 Saturation ABG O2 Content ABG Base Excess A-a Gradient Oxyhemoglobin Carboxyhemoglobin Methemoglobin Reduced Hemoglobin Total Hemoglobin O2 Delivery Device O2 Liters/Min Minute Volume Vent Rate Vent Mode FiO2 Tidal Volume PEEP Peak Inspir Pressure Pressure Support Sodium Potassium Chloride Carbon Dioxide Anion Gap BUN Creatinine Estim Creat Clear Calc Estimated GFR Glucose POC Capillary Glucose 119 H Calcium Phosphorus Magnesium Total Bilirubin AST ALT Alkaline Phosphatase Total Protein Albumin Triglycerides Random Vancomycin Crossmatch
[2025-02-21] MEDS: MEROPENEM 2 GM in SODIUM CHLORIDE 0.9% IV 100 ML IVPB ×2 (09:23→20:22)
[2025-02-21] MEDS: POTASSIUM CHLORIDE 20 MEQ PACKET (FOR LIQUID) 40 MEQ FEED TUBE (09:23)
[2025-02-21] MEDS: FERROUS SULFATE 325 MG TABLET DR BY MOUTH ×2 (09:24→17:03)
[2025-02-21] MEDS: FOLIC ACID 1 MG TABLET PO (09:24)
[2025-02-21] MEDS: PANTOPRAZOLE SODIUM IV 40 MG VIAL IV PUSH ×2 (09:25→20:23)
[2025-02-21] MEDS: POTASSIUM PHOS,M-BASIC-D-BASIC 40 MMOL in SODIUM CHLORIDE 0.9% IV 250 ML 43.89 MMOL IVPB (09:25)
[2025-02-21] MEDS: MINERAL OIL/WHITE PETROLATUM OINTMENT 1 APPLIC EACH EYE ×2 (09:25→20:27)
--- NOTE | 2025-02-21 09:57 | WPDINTPN ---
Progress Note: A&P Assessment and Plan (1) Hypoxic respiratory failure: Code(s): J96.91 - Respiratory failure, unspecified with hypoxia Status: Acute Assessment and Plan: Acute hypoxic respiratory failure: Likely related to pneumonia versus moderate pleural effusions bilaterally -hypoxic respiratory failure on ABG down 02/18, as patient was tachypneic, short of breath, decreased O2 sats. PH was 7.13/23/58/7.8/82% -02/18: Intubated in the ICU by ER physician -currently on CMV mode of ventilation, peep of 5, 35% FiO2. -ABGs and chest x-ray/CT chest reviewed: Ventilator adjusted, e -added DuoNebs -started on vancomycin and meropenem, discontinue ceftriaxone -02/19: Blood cultures , preliminary report shows no growth x2 -02/18: Sputum cultures, no growth -sedated with propofol and Versed infusion, maintain RASS of 0 to -1, have asked the bedside RN to decrease the sedation to evaluate neurological status -continue diuresis (2) Pneumonia: Code(s): J18.9 - Pneumonia, unspecified organism Status: Acute Assessment and Plan: As above (3) Adenocarcinoma of left lung, stage 4: Code(s): C34.92 - Malignant neoplasm of unspecified part of left bronchus or lung Status: Chronic Assessment and Plan: Follows with Dr. Acosta (oncologist) patient has been on Keytruda -Mets to bone and brain (4) Acute kidney injury superimposed on CKD: Code(s): N17.9 - Acute kidney failure, unspecified; N18.9 - Chronic kidney disease, unspecified Status: Acute Assessment and Plan: Patient presented with acute kidney injury on 02/16/2025 likely secondary to diarrhea. Creatinine on admission was 9.00 -adequately fluid-resuscitated -non-anion gap metabolic acidosis secondary to diarrhea -urine output has been adequate -nephrology following the patient -continue to monitor renal function, electrolytes and urine out -creatinine has normalized (5) Diarrhea: Qualifiers: Diarrhea type: presumed infectious Qualified Code(s): R19.7 - Diarrhea, unspecified Code(s): R19.7 - Diarrhea, unspecified Status: Acute Assessment and Plan: GI following the patient for diarrhea -02/16: C diff was negative -patient started on cholestyramine -diarrhea has improved -02/18: Stool culture for E coli, Shiga toxin is negative, Campylobacter is negative, salmonella and Shigella cultures are pending (6) Electrolyte abnormality: Code(s): E87.8 - Other disorders of electrolyte and fluid balance, not elsewhere classified Status: Acute Assessment and Plan: Will will replace potassium, phosphorus and calcium (7) Anemia: Code(s): D64.9 - Anemia, unspecified Status: Acute Assessment and Plan: Patient has dropped hemoglobin from 12.8 on 02/16/2025 to 7.8 this morning -increase PPI to q.12 hours -GI following the patient -history of iron deficiency anemia on ferrous sulfate, will continue -02/20: Patient dropped hemoglobin to 6.6 this morning, will transfuse 1 unit of packed RBCs, lactic acid likely related to anemia. -hold heparin subQ. Will place SCDs (8) Cardiomyopathy: Code(s): I42.9 - Cardiomyopathy, unspecified Status: Acute Assessment and Plan: Unknown if this is new onset cardiomyopathy -also mild pulmonary hypertension -appreciate cardiology evaluation and recommendation - start low-dose losartan 25 mg per tube -l add metoprolol when more stable 02/19: Echocardiogram Summary 1. Left ventricular chamber dimension is moderately enlarged. 2. Left ventricular systolic function is severely globally reduced, estimated at 20-25. The small basal segments appear to be spared which could suggest Takotsubo cardiomyopathy. 3. The left ventricular diastolic function is grade I diastolic dysfunction. 4. E/e' 14 is mildly elevated. 5. There is trace aortic valve regurgitation. 6. There is mild mitral valve regurgitation. 7. There is mild tricuspid valve regurgitation. 8. Mild pulmonary hypertension, estimated pulmonary arterial systolic pressure is 43 mmHg. 9. Dilated inferior vena cava with >50% collapse upon inspiration consistent with elevated right atrial pressure, 10 mmHg. Plan DVT prophylaxis: Will hold heparin subQ due to anemia, place SCDs Stress ulcer prophylaxis: Protonix IV q.12 hours Nutrition: Tolerating tube feeds Code Status: Full code Critical Care Time Spent: 34 minutes Discussed with patient's so POEros, who has a granddaughter, updated her with patient's condition and plan of care. I answered all questions OFF NOTE: Patient was supposed to go on hospice today on 02/19/2025 but DNR was rescinded on 02/18/2025 prior to intubation Due to a high probability of clinically significant, life threatening deterioration, the patient required my highest level of preparedness to intervene emergently and I personally spent this critical care time directly and personally managing the patient. This critical care time included obtaining a history; examining the patient; pulse oximetry; ordering and review of studies; arranging urgent treatment with development of a management plan; evaluation of patient's response to treatment; frequent reassessment; and discussions with other providers. It was exclusive of separately billable procedures and treating other patients and teaching time. Please see Assessment and Plan section and the rest of the note for further information on patient assessment and treatment This dictation may have been done utilizing a voice recognition system. Attempts have been made to correct errors. However, there may be uncorrected grammatical, spelling, and recognitions errors present. Subjective Date/time seen: 02/21/25 09:57 Interval history: Reason for consult: Acute respiratory failure and mechanical ventilation, hypoxia on ABG, pneumonia, diarrhea, anemia, cardiomyopathy 02/20: Transfused 1 unit of packed RBCs 02/21/2025: Patient seen and examined the ICU, remains intubated on CMV mode of ventilation, peep of 5, 30% FiO2. Sedated with propofol and Versed infusion. Patient tries to open her eyes, follows simple commands in all extremities. Urine output has been adequate. Tolerating tube feeds, afebrile, hemodynamically stable Review of Systems Review of Systems: ROS unobtainable: Yes unobtainable due to endotracheal tube, unobtainable due to medical condition and unobtainable due to mental status Exam Narrative: General: Intubated and sedated, in no acute distress HEENT:? Pupils are equal and reactive, sclerae is clear Neck:? Supple Respiratory:? Coarse breath sounds right greater than left, adequate air entry, no wheezing Cardiac:? S1-S2 is normal, regular rate and rhythm Abdomen:? Soft, nontender, nondistended, hypoactive bowel sounds Extremities:? Bilateral upper extremity edema right greater than left, trace edema bilateral lower extremities Neuro:? Intubated and sedated, tries to open her eyes, follows simple commands in all extremities Skin:? No skin lesions noted Psych:? Unable to assess at this time Objective Data Vital Signs Vital Signs: Vital Signs - 24 hr 02/20/25 10:00 02/20/25 10:00 02/20/25 10:00 Temperature 97.7 F Pulse Rate 89 80 86 Respiratory Rate 18 15 15 Blood Pressure 119/75 Pulse Oximetry 100 Oxygen Delivery Fraction of Inspired Oxygen 02/20/25 10:00 02/20/25 10:09 02/20/25 10:22 Temperature 97.7 F Pulse Rate 89 85 87 Respiratory Rate 17 Blood Pressure 119/75 Pulse Oximetry 100 97 Oxygen Delivery Mechanical Ventilation Fraction of Inspired Oxygen 30 02/20/25 11:05 02/20/25 11:26 02/20/25 12:00 Temperature 98.1 F 98.8 F Pulse Rate 86 86 88 Respiratory Rate 17 15 19 Blood Pressure 138/83 122/77 Pulse Oximetry 98 99 Oxygen Delivery Fraction of Inspired Oxygen 02/20/25 12:00 02/20/25 12:00 02/20/25 12:00 Temperature Pulse Rate 93 Respiratory Rate Blood Pressure Pulse Oximetry 99 Oxygen Delivery Mechanical Ventilation Fraction of Inspired Oxygen 30 30 02/20/25 12:43 02/20/25 13:05 02/20/25 13:43 Temperature Pulse Rate 85 85 80 Respiratory Rate 15 15 16 Blood Pressure Pulse Oximetry Oxygen Delivery Fraction of Inspired Oxygen 02/20/25 13:44 02/20/25 14:00 02/20/25 14:00 Temperature 99.4 F Pulse Rate 81 94 90 Respiratory Rate 19 Blood Pressure 135/86 Pulse Oximetry 99 98 Oxygen Delivery Mechanical Ventilation Fraction of Inspired Oxygen 30 02/20/25 15:00 02/20/25 15:00 02/20/25 16:00 Temperature 99.7 F H Pulse Rate 92 91 90 Respiratory Rate 18 16 16 Blood Pressure 125/96 H Pulse Oximetry 98 Oxygen Delivery Fraction of Inspired Oxygen 02/20/25 16:00 02/20/25 16:00 02/20/25 16:00 Temperature Pulse Rate 96 94 93 Respiratory Rate 18 18 Blood Pressure Pulse Oximetry Oxygen Delivery Fraction of Inspired Oxygen 02/20/25 16:00 02/20/25 16:00 02/20/25 16:50 Temperature Pulse Rate 93 94 Respiratory Rate 20 18 Blood Pressure Pulse Oximetry 99 Oxygen Delivery Mechanical Ventilation Fraction of Inspired Oxygen 30 30 02/20/25 16:55 02/20/25 17:15 02/20/25 17:18 Temperature Pulse Rate 97 98 98 Respiratory Rate 17 19 Blood Pressure Pulse Oximetry 99 Oxygen Delivery Mechanical Ventilation Fraction of Inspired Oxygen 30 02/20/25 17:35 02/20/25 17:38 02/20/25 18:00 Temperature 100.3 F H Pulse Rate 97 93 89 Respiratory Rate 18 18 17 Blood Pressure 125/72 Pulse Oximetry 98 Oxygen Delivery Fraction of Inspired Oxygen 02/20/25 18:00 02/20/25 18:47 02/20/25 18:47 Temperature Pulse Rate 91 90 90 Respiratory Rate 19 19 Blood Pressure Pulse Oximetry Oxygen Delivery Fraction of Inspired Oxygen 02/20/25 20:00 02/20/25 20:00 02/20/25 20:00 Temperature Pulse Rate 88 Respiratory Rate Blood Pressure Pulse Oximetry 99 Oxygen Delivery Mechanical Ventilation Fraction of Inspired Oxygen 30 30 02/20/25 20:00 02/20/25 20:00 02/20/25 20:00 Temperature 100.6 F H Pulse Rate 90 90 90 Respiratory Rate 17 17 17 Blood Pressure 125/74 Pulse Oximetry 99 Oxygen Delivery Fraction of Inspired Oxygen 02/20/25 20:30 02/20/25 22:00 02/20/25 22:00 Temperature Pulse Rate 98 92 92 Respiratory Rate 16 16 Blood Pressure Pulse Oximetry 99 Oxygen Delivery Mechanical Ventilation Fraction of Inspired Oxygen 30 02/20/25 22:00 02/20/25 22:00 02/20/25 22:13 Temperature 100.1 F H Pulse Rate 92 92 87 Respiratory Rate 16 Blood Pressure 125/72 Pulse Oximetry 100 100 Oxygen Delivery Mechanical Ventilation Fraction of Inspired Oxygen 30 02/21/25 00:00 02/21/25 00:00 02/21/25 00:00 Temperature 99.7 F H Pulse Rate 86 86 83 Respiratory Rate 17 17 15 Blood Pressure 126/74 Pulse Oximetry 99 Oxygen Delivery Fraction of Inspired Oxygen 02/21/25 00:00 02/21/25 00:00 02/21/25 00:00 Temperature Pulse Rate 82 Respiratory Rate Blood Pressure Pulse Oximetry 99 Oxygen Delivery Mechanical Ventilation Fraction of Inspired Oxygen 30 02/21/25 01:04 02/21/25 01:05 02/21/25 02:00 Temperature 99.7 F H Pulse Rate 80 80 83 Respiratory Rate 14 14 15 Blood Pressure 126/74 Pulse Oximetry 99 Oxygen Delivery Fraction of Inspired Oxygen 02/21/25 02:00 02/21/25 02:00 02/21/25 02:00 Temperature Pulse Rate 72 72 72 Respiratory Rate 14 14 Blood Pressure Pulse Oximetry Oxygen Delivery Fraction of Inspired Oxygen 02/21/25 02:25 02/21/25 02:25 02/21/25 02:35 Temperature Pulse Rate 71 71 74 Respiratory Rate 14 14 Blood Pressure Pulse Oximetry 98 Oxygen Delivery Mechanical Ventilation Fraction of Inspired Oxygen 30 02/21/25 04:00 02/21/25 04:00 02/21/25 04:00 Temperature Pulse Rate 80 78 78 Respiratory Rate 14 14 Blood Pressure Pulse Oximetry Oxygen Delivery Fraction of Inspired Oxygen 02/21/25 04:00 02/21/25 04:00 02/21/25 04:00 Temperature 97.7 F Pulse Rate 78 Respiratory Rate 14 Blood Pressure 118/71 Pulse Oximetry 98 98 Oxygen Delivery Mechanical Ventilation Fraction of Inspired Oxygen 30 30 02/21/25 05:08 02/21/25 06:00 02/21/25 06:00 Temperature 97.9 F Pulse Rate 76 74 74 Respiratory Rate 14 14 Blood Pressure 107/67 Pulse Oximetry 99 99 Oxygen Delivery Mechanical Ventilation Fraction of Inspired Oxygen 30 02/21/25 06:00 02/21/25 06:00 02/21/25 06:35 Temperature Pulse Rate 74 75 69 Respiratory Rate 14 14 Blood Pressure Pulse Oximetry Oxygen Delivery Fraction of Inspired Oxygen 02/21/25 06:36 02/21/25 07:44 02/21/25 07:47 Temperature Pulse Rate 69 80 78 Respiratory Rate 14 17 Blood Pressure Pulse Oximetry 100 Oxygen Delivery Mechanical Ventilation Fraction of Inspired Oxygen 30 02/21/25 07:53 02/21/25 08:00 02/21/25 08:00 Temperature 97.7 F Pulse Rate 84 86 Respiratory Rate 17 18 Blood Pressure 118/69 Pulse Oximetry 99 Oxygen Delivery Fraction of Inspired Oxygen 30 02/21/25 08:00 02/21/25 08:00 02/21/25 09:00 Temperature Pulse Rate 86 86 85 Respiratory Rate 18 18 16 Blood Pressure Pulse Oximetry Oxygen Delivery Fraction of Inspired Oxygen Intake/Output Intake/Output: Intake & Output 02/18/25 02/19/25 02/20/25 02/21/25 23:59 23:59 23:59 23:59 Intake Total 667.2 4155.0 2774.4 882.3 Output Total 1600 1850 1200 700 Balance -932.8 2305.0 1574.4 182.3 Meds/Results Medications: Active Medications Generic Name Dose Route Start Last Admin Trade Name Freq PRN Reason Stop Dose Admin Acetaminophen 650 mg 02/16/25 14:42 Acetaminophen 325 Mg Tablet PO Q4H PRN Mild Pain (1-3) or Fever Hydrocodone Bitart/Acetaminophen 1 tab 02/16/25 22:21 Hydrocodone/Acetaminophen (*Crx) 5-325 Mg Tablet PO Q12H PRN Pain Rated 4-6 Albuterol/Ipratropium 3 ml 02/19/25 08:00 02/21/25 07:43 Ipratropium 0.5 Mg/Albuterol Sulfate 2.5 Mg Ampul.Neb 3 Ml INHALATION 3 ml Q6HRT [facility] Administration Calcium Carbonate 500 mg 02/17/25 09:00 02/18/25 18:52 Calcium Carbonate (Oscal) 500 Mg Tablet PO Not Given BID [facility] Cholestyramine Resin 4 gm 02/17/25 18:00 02/20/25 18:48 Cholestyramine Light 4 Gm Powd.Pack PO 4 gm BID@1000,1800 [facility] Administration Dexamethasone 4 mg 02/20/25 09:00 02/21/25 09:24 Dexamethasone 4 Mg Tablet PO 4 mg DAILY [facility] Administration Ferrous Sulfate 325 mg 02/20/25 09:00 02/21/25 09:24 Ferrous Sulfate [address] BY MOUTH 325 mg BID [facility] Administration Folic Acid 1 mg 02/17/25 09:00 02/21/25 09:24 Folic Acid 1 Mg Tablet PO 1 mg DAILY [facility] Administration Heparin Sodium (Beef Lung) 50 units 02/19/25 09:00 02/21/25 09:24 Heparin Flush 50 Units/5 Ml Syringe IV PUSH 50 units QAM [facility] Administration Heparin Sodium (Beef Lung) 50 units 02/18/25 19:00 Heparin Flush 50 Units/5 Ml Syringe IV PUSH PRN PRN after intermittent infusion Heparin Sodium (Beef Lung) 50 units 02/18/25 19:00 Heparin Flush 50 Units/5 Ml Syringe IV PUSH PRN PRN after blood draws Heparin Sodium (Porcine) 500 units 02/18/25 19:00 Heparin Sodium Lock Flush 500 Units/5 Ml Syringe IV PUSH PRN PRN see comments below Propofol 100 mls @ 14.448 mls/hr 02/18/25 18:45 02/21/25 08:00 Diprivan IV CONT 40 mcg/kg/min .Q6H56M [facility] 14.45 mls/hr Titration Protocol 40 MCG/KG/MIN Midazolam HCl 100 mg in 100 mls @ 0 mls/hr 02/19/25 13:35 02/21/25 09:00 Versed 100 Mg/Ns 100 Ml IV CONT 0 mg/hr .Q0M [facility] 0 mls/hr Titration Protocol Meropenem 2 gm/ Sodium 140 mls @ 280 mls/hr 02/21/25 08:00 02/21/25 09:23 Chloride IVPB 280 mls/hr Q12H [facility] Administration Potassium Phosphate 40 mmol/ 263.3333 mls @ 43.889 mls/hr 02/21/25 09:00 02/21/25 09:25 Sodium Chloride IVPB 02/21/25 14:59 43.89 mls/hr ONCE ONE Administration Loperamide HCl 2 mg 02/17/25 00:04 02/18/25 15:38 Loperamide Hcl 2 Mg Capsule PO 2 mg TID PRN Administration Diarrhea Melatonin 10 mg 02/18/25 21:00 Melatonin 5 Mg Tablet PO [facility] Miscellaneous Information 1 each 02/20/25 00:01 02/21/25 00:42 Please Renew Propofol_. Per [employer] Procedure, It Will Discontinue If Not Renewed XX 03/22/25 00:00 1 each CLARIFY [facility] Administration Multi-Ingred Cream/Lotion/Oil/Oint 1 applic 02/18/25 21:00 02/21/25 09:25 Mineral Oil/White Petrolatum Ointment EACH EYE 1 applic Q12HR [facility] Administration Nitroglycerin 0.4 mg 02/18/25 16:44 02/18/25 17:15 Nitroglycerin Sl 0.4 Mg Tablet SUBLINGUAL 0.4 mg Q5MIN PRN Administration Chest Pain Ondansetron HCl 4 mg 02/16/25 14:42 Ondansetron Inj 4 Mg/2 Ml Vial IV PUSH Q4H PRN Nausea Pantoprazole Sodium 40 mg 02/19/25 21:00 02/21/25 09:25 Pantoprazole Sodium Iv 40 Mg Vial IV PUSH 40 mg Q12HR [facility] Administration Sodium Chloride 10 ml 02/18/25 22:00 02/21/25 06:30 Central Line Flush IV PUSH 10 ml Q8HR [facility] Administration Sodium Chloride 10 ml 02/19/25 14:00 02/21/25 06:00 Central Line Flush IV PUSH 10 ml Q8HR [facility] Administration Sodium Chloride 10 ml 02/19/25 10:47 Central Line Flush IV PUSH PRN PRN with TPN bag changes Sodium Chloride 20 ml 02/19/25 10:47 Central Line Flush IV PUSH PRN PRN after blood draws Vancomycin HCl 1 each 02/18/25 19:15 Vancomycin For Acute Kidney Injury IVPB PRN PRN Vancomycin Protocol Radiology Results: ITS Impressions Renal Ultrasound 02/17/25 08:54 IMPRESSION: 1. Normal kidneys without hydronephrosis. Abdomen X-Ray 02/18/25 19:29 IMPRESSION: Orogastric tube in good position and ready for immediate use. Head CT 02/19/25 09:07 IMPRESSION: No acute intracranial findings. Chest/Abdomen/Pelvis CT 02/19/25 09:17 IMPRESSION: CHEST: 1. Bilateral moderate pleural effusion with adjacent atelectasis versus pneumonia. 2. Trace of pericardial effusion. 3. Sclerotic changes in the superior endplate of T1. MRI evaluation to exclude acute fracture. ABDOMEN/PELVIS: 1. No evidence of appendicitis, diverticulitis or intestinal obstruction. No kidney stones. Venous Doppler Study 02/20/25 10:00 IMPRESSION: 1. Patent bilateral upper extremity veins. No evidence of venous thrombosis. Chest X-Ray 02/21/25 07:13 Impression: Hazy bilateral airspace disease, suggestive of mild to moderate pulmonary edema. Correlate clinically for pneumonia. Support tubes, as above. Labs Labs: Laboratory Results - last 24 hr 02/20/25 02/20/25 02/20/25 05:48 11:15 14:52 WBC RBC Hgb 8.8 L Hct 27.0 L MCV MCH MCHC RDW Plt Count MPV Immature Gran % (Auto) Neut % (Auto) Lymph % (Auto) [place] % (Auto) Eos % (Auto) Baso % (Auto) Lymph # (Auto) [place] # (Auto) Eos # (Auto) Baso # (Auto) Abs Immat Gran (auto) Absolute Neuts (auto) Absolute Nucleated RBC Nucleated RBC % Puncture Site ABG pH ABG pCO2 ABG pO2 ABG PO2/FiO2 Ratio ABG HCO3 ABG O2 Saturation ABG O2 Content ABG Base Excess A-a Gradient Oxyhemoglobin Carboxyhemoglobin Methemoglobin Reduced Hemoglobin Total Hemoglobin O2 Delivery Device O2 Liters/Min Minute Volume Vent Rate Vent Mode FiO2 Tidal Volume PEEP Peak Inspir Pressure Pressure Support Sodium Potassium 3.8 Chloride Carbon Dioxide Anion Gap BUN Creatinine Estim Creat Clear Calc Estimated GFR Glucose POC Capillary Glucose 120 H Calcium Phosphorus Magnesium Total Bilirubin AST ALT Alkaline Phosphatase Total Protein Albumin Triglycerides Random Vancomycin Crossmatch See Detail 02/20/25 02/20/25 02/20/25 17:54 18:36 19:54 WBC RBC Hgb Hct MCV MCH MCHC RDW Plt Count MPV Immature Gran % (Auto) Neut % (Auto) Lymph % (Auto) [place] % (Auto) Eos % (Auto) Baso % (Auto) Lymph # (Auto) [place] # (Auto) Eos # (Auto) Baso # (Auto) Abs Immat Gran (auto) Absolute Neuts (auto) Absolute Nucleated RBC Nucleated RBC % Puncture Site ABG pH ABG pCO2 ABG pO2 ABG PO2/FiO2 Ratio ABG HCO3 ABG O2 Saturation ABG O2 Content ABG Base Excess A-a Gradient Oxyhemoglobin Carboxyhemoglobin Methemoglobin Reduced Hemoglobin Total Hemoglobin O2 Delivery Device O2 Liters/Min Minute Volume Vent Rate Vent Mode FiO2 Tidal Volume PEEP Peak Inspir Pressure Pressure Support Sodium Potassium Chloride Carbon Dioxide Anion Gap BUN Creatinine Estim Creat Clear Calc Estimated GFR Glucose POC Capillary Glucose 151 H Calcium Phosphorus Magnesium Total Bilirubin AST ALT Alkaline Phosphatase Total Protein Albumin Triglycerides 95 Random Vancomycin 11.4 Crossmatch 02/21/25 02/21/25 02/21/25 00:10 04:14 04:51 WBC 22.3 H RBC 2.76 L Hgb 8.4 L Hct 25.7 L MCV 93.1 MCH 30.4 MCHC 32.7 RDW 16.5 H Plt Count 175 MPV 9.2 Immature Gran % (Auto) 9.4 H Neut % (Auto) 76.0 H Lymph % (Auto) 7.3 L [place] % (Auto) 7.0 Eos % (Auto) 0.0 Baso % (Auto) 0.3 Lymph # (Auto) 1.64 [place] # (Auto) 1.6 H Eos # (Auto) 0.0 Baso # (Auto) 0.1 Abs Immat Gran (auto) 2.09 H Absolute Neuts (auto) 17.0 H Absolute Nucleated RBC 0.040 H Nucleated RBC % 0.2 Puncture Site Right radial ABG pH 7.461 H ABG pCO2 36.7 ABG pO2 87.6 ABG PO2/FiO2 Ratio 2.92 ABG HCO3 25.6 ABG O2 Saturation 97.1 ABG O2 Content 13.2 L ABG Base Excess 1.8 A-a Gradient 83.2 Oxyhemoglobin 95.7 Carboxyhemoglobin 0.3 Methemoglobin 0.3 Reduced Hemoglobin 3.7 Total Hemoglobin 9.7 L O2 Delivery Device Ventilator O2 Liters/Min Not Reportable Minute Volume Not Reportable Vent Rate 14 Vent Mode Cmv FiO2 30 Tidal Volume 350 PEEP 5 Peak Inspir Pressure Not Reportable Pressure Support Not Reportable Sodium 140 Potassium 3.2 L Chloride 107 Carbon Dioxide 27 Anion Gap 6 BUN 12 Creatinine 1.00 Estim Creat Clear Calc 43 Estimated GFR 55 L Glucose 127 H POC Capillary Glucose 141 H Calcium 7.8 L Phosphorus 1.1 L Magnesium 1.7 Total Bilirubin 0.2 AST 25 ALT 14 Alkaline Phosphatase 103 Total Protein 5.5 L Albumin 3.4 L Triglycerides Random Vancomycin Crossmatch 02/21/25 06:11 WBC RBC Hgb Hct MCV MCH MCHC RDW Plt Count MPV Immature Gran % (Auto) Neut % (Auto) Lymph % (Auto) [place] % (Auto) Eos % (Auto) Baso % (Auto) Lymph # (Auto) [place] # (Auto) Eos # (Auto) Baso # (Auto) Abs Immat Gran (auto) Absolute Neuts (auto) Absolute Nucleated RBC Nucleated RBC % Puncture Site ABG pH ABG pCO2 ABG pO2 ABG PO2/FiO2 Ratio ABG HCO3 ABG O2 Saturation ABG O2 Content ABG Base Excess A-a Gradient Oxyhemoglobin Carboxyhemoglobin Methemoglobin Reduced Hemoglobin Total Hemoglobin O2 Delivery Device O2 Liters/Min Minute Volume Vent Rate Vent Mode FiO2 Tidal Volume PEEP Peak Inspir Pressure Pressure Support Sodium Potassium Chloride Carbon Dioxide Anion Gap BUN Creatinine Estim Creat Clear Calc Estimated GFR Glucose POC Capillary Glucose 119 H Calcium Phosphorus Magnesium Total Bilirubin AST ALT Alkaline Phosphatase Total Protein Albumin Triglycerides Random Vancomycin Crossmatch Quality VTE Prophylaxis VTE prophylaxis: pharmacologic ordered
[2025-02-21] MEDS: CHOLESTYRAMINE LIGHT 4 GM POWD.PACK PO ×2 (10:44→17:03)
[2025-02-21] MEDS: LOSARTAN POTASSIUM 25 MG TABLET PO (10:46)
[2025-02-21] MEDS: PROPOFOL IV EMULSION 100 ML 18.06 MG IV CONT ×2 (17:08→22:19)
[2025-02-21] MEDS: VANCOMYCIN 1,000 MG/NS 250 ML 1,000 MG/250 ML BAG 250 MG IVPB (22:10)
[2025-02-22] VITALS (37 sets, daily range): BP systolic 97–145; BP diastolic 59–83; PULSE 59–112; RESP 11–25; TEMP 36.3–38; O2SAT 94–100
[2025-02-22] MEDS: IPRATROPIUM 0.5 MG/ALBUTEROL SULFATE 2.5 MG AMPUL.NEB 3 ML INHALATION ×4 (02:46→19:56)
[2025-02-22] MEDS: PROPOFOL IV EMULSION 100 ML 16.25 MG IV CONT (03:56)
[2025-02-22 05:06] LABS: Alveolar/Arterial O2 Gradient 77.5 mmHg; Carboxyhemoglobin 0.2 % THb (0-2.0); Fractional Inspired Oxygen 30 %; HCO3 ABG 30.3 mEq/l (22.0-26.0); Methemoglobin ABG 0.3 %THb (0-1.5); Oxygen Content ABG 13.1 %vol (16.0-22.0); Oxygen Saturation ABG 97.4 % (95.0-100.0); PCO2 ABG 39.9 mmHg (35.0-45.0); PO2 ABG 89.5 mmHg (80.0-100.0); PO2 FiO2 Ratio Arterial Blood 2.98 %; Reduced Hemoglobin 2.8 %THb (0-5.0)
[2025-02-22 05:07] LABS: Arterial Blood Gas Tidal Volume 350 ml; Arterial Blood Gas Ventilator rate 14 /MIN; Site Drawn LEFT BRACHIAL
[2025-02-22 06:06] LABS: Hematocrit 28.4 % (37.0-47.0); Hemoglobin 9.0 g/dL (12.0-15.0); Immature Granulocyte Percent A 8.0 % (0-0.5); Lymphocytes Absolute Auto 1.72 K/mm3 (0.9-3.2); Mean Corpuscular HGB Conc 31.7 g/dl (32-36); Mean Corpuscular Hemoglobin 30.5 pg (26-34); Mean Corpuscular Volume 96.3 fl (80-100); Nucleated Red Blood Cells Absolute Auto 0.020 K/mm3 (0.0-0.012); Nucleated Red Blood Cells Perc 0.1 % (0.0-0.2); Platelet Count Result 208 k/mm3 (150-375); Red Blood Count 2.95 M/mm3 (4.2-5.4); White Blood Count 20.6 K/mm3 (4.5-10.0)
[2025-02-22] MEDS: CENTRAL LINE FLUSH 10 ML IV PUSH ×7 (06:14→20:30)
[2025-02-22 06:46] LABS: Alanine Aminotransferase 13 U/L (6-35); Albumin Level 3.2 g/dL (3.5-5.1); Alkaline Phosphatase 94 U/L (38-126); Anion Gap 8 mmol/L (4-12); Aspartate Amino Transferase 25 U/L (14-36); Bilirubin,Total < 0.1 mg/dL (0.2-1.3); Blood Urea Nitrogen 14 mg/dL (7-17); Calcium 7.6 mg/dL (8.4-10.2); Carbon Dioxide 29 mmol/L (22-30); Chloride 103 mmol/L (98-107); Estimated CRCL calculation 53 ml/min; Estimated Glomerular Filt Rate > 60; Glucose 102 mg/dL (65-110); Magnesium 1.7 mg/dL (1.6-2.3); Potassium 4.2 mmol/L (3.4-5.0); Sodium 140 mmol/L (137-145); Total Protein 5.6 g/dL (6.3-8.2)
[2025-02-22] MEDS: POTASSIUM/PHOSPHORUS/SODIUM 1.5 GM PACKET 1 PACKET PO (07:56)
[2025-02-22] MEDS: FOLIC ACID 1 MG TABLET PO (07:56)
[2025-02-22] MEDS: FUROSEMIDE INJ 40 MG/4 ML VIAL IV PUSH (07:56)
[2025-02-22] MEDS: LOSARTAN POTASSIUM 25 MG TABLET PO (07:56)
[2025-02-22] MEDS: PANTOPRAZOLE SODIUM IV 40 MG VIAL IV PUSH ×2 (07:56→20:30)
[2025-02-22] MEDS: FERROUS SULFATE 325 MG TABLET DR BY MOUTH ×2 (07:56→16:51)
[2025-02-22] MEDS: MAGNESIUM SULF 2 GM/WATER 50ML 2 GM/50 ML BAG IVPB (07:57)
[2025-02-22] MEDS: CALCIUM GLUC 2,000 MG/NS 100ML 2,000 MG/100 ML BAG 100 MG IVPB (07:57)
[2025-02-22] MEDS: CHOLESTYRAMINE LIGHT 4 GM POWD.PACK PO (07:57)
[2025-02-22] MEDS: MINERAL OIL/WHITE PETROLATUM OINTMENT 1 APPLIC EACH EYE (07:59)
[2025-02-22] MEDS: MEROPENEM 2 GM in SODIUM CHLORIDE 0.9% IV 100 ML IVPB ×3 (08:06→23:24)
--- NOTE | 2025-02-22 09:10 | WPDINTPN ---
Progress Note: A&P Assessment and Plan (1) Hypoxic respiratory failure: Code(s): J96.91 - Respiratory failure, unspecified with hypoxia Status: Acute Assessment and Plan: Acute hypoxic respiratory failure: Likely related to pneumonia versus moderate pleural effusions bilaterally -hypoxic respiratory failure on ABG down 02/18, as patient was tachypneic, short of breath, decreased O2 sats. PH was 7.13/23/58/7.8/82% -02/18: Intubated in the ICU by ER physician -currently on CMV mode of ventilation, peep of 5, 35% FiO2. -ABGs and chest x-ray/CT chest reviewed: Ventilator adjusted, e -added DuoNebs -started on vancomycin and meropenem, discontinue ceftriaxone -02/19: Blood cultures , preliminary report shows no growth x2 -02/18: Sputum cultures, no growth -sedated with propofol and Versed infusion, maintain RASS of 0 to -1, have asked the bedside RN to decrease the sedation to evaluate neurological status -have asked the bedside RN to start Precedex infusion and wean off propofol and Versed -patient responded well to Lasix on 02/21 -will continue to diurese (2) Pneumonia: Code(s): J18.9 - Pneumonia, unspecified organism Status: Acute Assessment and Plan: As above (3) Adenocarcinoma of left lung, stage 4: Code(s): C34.92 - Malignant neoplasm of unspecified part of left bronchus or lung Status: Chronic Assessment and Plan: Follows with Dr. Acosta (oncologist) patient has been on Keytruda -Mets to bone and brain (4) Acute kidney injury superimposed on CKD: Code(s): N17.9 - Acute kidney failure, unspecified; N18.9 - Chronic kidney disease, unspecified Status: Acute Assessment and Plan: Patient presented with acute kidney injury on 02/16/2025 likely secondary to diarrhea. Creatinine on admission was 9.00 -adequately fluid-resuscitated -non-anion gap metabolic acidosis secondary to diarrhea -urine output has been adequate -nephrology following the patient -continue to monitor renal function, electrolytes and urine out -creatinine has normalized (5) Diarrhea: Qualifiers: Diarrhea type: presumed infectious Qualified Code(s): R19.7 - Diarrhea, unspecified Code(s): R19.7 - Diarrhea, unspecified Status: Acute Assessment and Plan: GI following the patient for diarrhea -02/16: C diff was negative -patient started on cholestyramine -diarrhea has improved -02/18: Stool culture for E coli, Shiga toxin is negative, Campylobacter is negative, salmonella and Shigella cultures are also negative (6) Electrolyte abnormality: Code(s): E87.8 - Other disorders of electrolyte and fluid balance, not elsewhere classified Status: Acute Assessment and Plan: Will will replace magnesium, phosphorus and calcium (7) Anemia: Code(s): D64.9 - Anemia, unspecified Status: Acute Assessment and Plan: Patient has dropped hemoglobin from 12.8 on 02/16/2025 to 7.8 this morning -increase PPI to q.12 hours -GI following the patient -history of iron deficiency anemia on ferrous sulfate, will continue -02/20: Patient dropped hemoglobin to 6.6 status post 1 unit of packed RBCs, lactic acid likely related to anemia. -hold heparin subQ. Continue SCDs -hemoglobin remained stable (8) Cardiomyopathy: Code(s): I42.9 - Cardiomyopathy, unspecified Status: Acute Assessment and Plan: Unknown if this is new onset cardiomyopathy -also mild pulmonary hypertension -appreciate cardiology evaluation and recommendation - 02/21; start low-dose losartan 25 mg per tube -will add metoprolol when more stable per Cardiology 02/19: Echocardiogram Summary 1. Left ventricular chamber dimension is moderately enlarged. 2. Left ventricular systolic function is severely globally reduced, estimated at 20-25. The small basal segments appear to be spared which could suggest Takotsubo cardiomyopathy. 3. The left ventricular diastolic function is grade I diastolic dysfunction. 4. E/e' 14 is mildly elevated. 5. There is trace aortic valve regurgitation. 6. There is mild mitral valve regurgitation. 7. There is mild tricuspid valve regurgitation. 8. Mild pulmonary hypertension, estimated pulmonary arterial systolic pressure is 43 mmHg. 9. Dilated inferior vena cava with >50% collapse upon inspiration consistent with elevated right atrial pressure, 10 mmHg. Plan DVT prophylaxis: Will hold heparin subQ due to anemia, place SCDs Stress ulcer prophylaxis: Protonix IV q.12 hours Nutrition: Tolerating tube feeds Code Status: Full code Critical Care Time Spent: 32 minutes Discussed with patient's so CHRISTAEros, who has a granddaughter, updated her with patient's condition and plan of care. I answered all questions OFF NOTE: Patient was supposed to go on hospice today on 02/19/2025 but DNR was rescinded on 02/18/2025 prior to intubation Due to a high probability of clinically significant, life threatening deterioration, the patient required my highest level of preparedness to intervene emergently and I personally spent this critical care time directly and personally managing the patient. This critical care time included obtaining a history; examining the patient; pulse oximetry; ordering and review of studies; arranging urgent treatment with development of a management plan; evaluation of patient's response to treatment; frequent reassessment; and discussions with other providers. It was exclusive of separately billable procedures and treating other patients and teaching time. Please see Assessment and Plan section and the rest of the note for further information on patient assessment and treatment This dictation may have been done utilizing a voice recognition system. Attempts have been made to correct errors. However, there may be uncorrected grammatical, spelling, and recognitions errors present. Subjective Date/time seen: 02/22/25 09:10 Interval history: Reason for consult: Acute respiratory failure and mechanical ventilation, hypoxia on ABG, pneumonia, diarrhea, anemia, cardiomyopathy 02/20: Transfused 1 unit of packed RBCs 02/22/2025: Patient seen and examined the ICU, remains intubated on CMV mode of ventilation, peep of 5, 30% FiO2, sedated with propofol and fentanyl infusion. She does not open her eyes or follow simple commands this morning. Urine output has been good response to diuresis with negative fluid balance. Hemodynamically stable, tolerating tube feeds Review of Systems Review of Systems: ROS unobtainable: Yes unobtainable due to endotracheal tube, unobtainable due to medical condition and unobtainable due to mental status Exam Narrative: General: Intubated and sedated, in no acute distress HEENT:? Pupils are equal and reactive, sclerae is clear Neck:? Supple Respiratory:? Coarse breath sounds right greater than left, adequate air entry, no wheezing Cardiac:? S1-S2 is normal, regular rate and rhythm Abdomen:? Soft, nontender, nondistended, hypoactive bowel sounds Extremities:? Bilateral upper extremity edema right greater than left, trace edema bilateral lower extremities Neuro:? Intubated and sedated, tries to open her eyes, does not follows simple commands this morning Skin:? No skin lesions noted Psych:? Unable to assess at this time Objective Data Vital Signs Vital Signs: Vital Signs - 24 hr 02/21/25 10:00 02/21/25 10:00 02/21/25 10:00 Temperature 98.1 F Pulse Rate 85 89 89 Respiratory Rate 18 13 18 Blood Pressure 131/72 Pulse Oximetry 99 Oxygen Delivery Fraction of Inspired Oxygen 02/21/25 10:00 02/21/25 10:30 02/21/25 12:00 Temperature Pulse Rate 89 87 Respiratory Rate Blood Pressure Pulse Oximetry 98 Oxygen Delivery Mechanical Ventilation Fraction of Inspired Oxygen 30 30 02/21/25 12:00 02/21/25 12:00 02/21/25 12:00 Temperature 99 F Pulse Rate 85 84 84 Respiratory Rate 16 16 16 Blood Pressure 124/77 Pulse Oximetry 99 Oxygen Delivery Fraction of Inspired Oxygen 02/21/25 12:00 02/21/25 12:00 02/21/25 12:00 Temperature Pulse Rate 84 89 Respiratory Rate 16 Blood Pressure Pulse Oximetry 99 Oxygen Delivery Mechanical Ventilation Fraction of Inspired Oxygen 30 02/21/25 13:12 02/21/25 13:12 02/21/25 13:26 Temperature Pulse Rate 80 80 90 Respiratory Rate 17 17 Blood Pressure Pulse Oximetry 98 Oxygen Delivery Mechanical Ventilation Fraction of Inspired Oxygen 30 02/21/25 14:00 02/21/25 14:00 02/21/25 14:00 Temperature 99.1 F Pulse Rate 94 89 94 Respiratory Rate 17 16 Blood Pressure 124/75 Pulse Oximetry 99 Oxygen Delivery Fraction of Inspired Oxygen 02/21/25 14:00 02/21/25 16:00 02/21/25 16:00 Temperature 99.2 F Pulse Rate 94 83 83 Respiratory Rate 17 18 18 Blood Pressure 125/75 Pulse Oximetry 99 Oxygen Delivery Fraction of Inspired Oxygen 02/21/25 16:00 02/21/25 16:00 02/21/25 16:00 Temperature Pulse Rate 81 Respiratory Rate 17 Blood Pressure Pulse Oximetry 98 Oxygen Delivery Mechanical Ventilation Fraction of Inspired Oxygen 30 02/21/25 16:00 02/21/25 17:08 02/21/25 17:08 Temperature Pulse Rate 79 77 77 Respiratory Rate 15 15 Blood Pressure Pulse Oximetry Oxygen Delivery Fraction of Inspired Oxygen 02/21/25 17:32 02/21/25 18:00 02/21/25 18:00 Temperature 99.3 F Pulse Rate 79 80 77 Respiratory Rate 17 15 Blood Pressure 131/77 Pulse Oximetry 99 99 Oxygen Delivery Mechanical Ventilation Fraction of Inspired Oxygen 30 02/21/25 18:00 02/21/25 18:00 02/21/25 20:00 Temperature 99.2 F Pulse Rate 77 77 79 Respiratory Rate 15 16 Blood Pressure 111/69 Pulse Oximetry 99 Oxygen Delivery Fraction of Inspired Oxygen 02/21/25 20:00 02/21/25 20:00 02/21/25 20:00 Temperature Pulse Rate 78 78 Respiratory Rate 16 16 Blood Pressure Pulse Oximetry Oxygen Delivery Fraction of Inspired Oxygen 30 02/21/25 20:00 02/21/25 20:00 02/21/25 20:24 Temperature Pulse Rate 80 77 Respiratory Rate 16 Blood Pressure Pulse Oximetry 98 Oxygen Delivery Mechanical Ventilation Fraction of Inspired Oxygen 30 02/21/25 20:24 02/21/25 20:31 02/21/25 21:33 Temperature Pulse Rate 79 86 92 Respiratory Rate 18 18 Blood Pressure Pulse Oximetry 100 Oxygen Delivery Mechanical Ventilation Fraction of Inspired Oxygen 30 02/21/25 22:00 02/21/25 22:00 02/21/25 22:00 Temperature 99 F Pulse Rate 80 80 80 Respiratory Rate 14 14 14 Blood Pressure 102/64 Pulse Oximetry 98 Oxygen Delivery Fraction of Inspired Oxygen 02/21/25 22:00 02/21/25 22:19 02/21/25 22:19 Temperature Pulse Rate 80 77 77 Respiratory Rate 14 14 Blood Pressure Pulse Oximetry Oxygen Delivery Fraction of Inspired Oxygen 02/21/25 23:20 02/22/25 00:00 02/22/25 00:00 Temperature 98.5 F Pulse Rate 72 78 Respiratory Rate 16 Blood Pressure 114/70 Pulse Oximetry 99 100 Oxygen Delivery Mechanical Ventilation Fraction of Inspired Oxygen 30 30 02/22/25 00:00 02/22/25 00:00 02/22/25 00:00 Temperature Pulse Rate 78 78 77 Respiratory Rate 16 16 Blood Pressure Pulse Oximetry Oxygen Delivery Fraction of Inspired Oxygen 02/22/25 00:00 02/22/25 02:00 02/22/25 02:00 Temperature 98.1 F Pulse Rate 63 64 Respiratory Rate 14 Blood Pressure 99/70 L Pulse Oximetry 99 99 Oxygen Delivery Mechanical Ventilation Fraction of Inspired Oxygen 30 02/22/25 02:00 02/22/25 02:00 02/22/25 02:47 Temperature Pulse Rate 64 64 59 L Respiratory Rate 14 14 Blood Pressure Pulse Oximetry 99 Oxygen Delivery Mechanical Ventilation Fraction of Inspired Oxygen 30 02/22/25 02:47 02/22/25 03:30 02/22/25 03:55 Temperature Pulse Rate 59 L 70 71 Respiratory Rate 14 14 14 Blood Pressure Pulse Oximetry Oxygen Delivery Fraction of Inspired Oxygen 02/22/25 03:56 02/22/25 04:00 02/22/25 04:00 Temperature 97.4 F L Pulse Rate 71 71 71 Respiratory Rate 14 14 14 Blood Pressure 109/71 Pulse Oximetry 99 Oxygen Delivery Fraction of Inspired Oxygen 02/22/25 04:00 02/22/25 04:00 02/22/25 04:00 Temperature Pulse Rate 71 Respiratory Rate Blood Pressure Pulse Oximetry 100 Oxygen Delivery Mechanical Ventilation Fraction of Inspired Oxygen 30 30 02/22/25 05:13 02/22/25 06:00 02/22/25 06:00 Temperature 97.6 F Pulse Rate 73 71 71 Respiratory Rate 14 Blood Pressure 103/66 Pulse Oximetry 97 100 Oxygen Delivery Mechanical Ventilation Fraction of Inspired Oxygen 30 02/22/25 06:00 02/22/25 06:00 02/22/25 07:42 Temperature Pulse Rate 71 71 78 Respiratory Rate 15 15 Blood Pressure Pulse Oximetry 98 Oxygen Delivery Mechanical Ventilation Fraction of Inspired Oxygen 30 02/22/25 07:51 02/22/25 07:57 02/22/25 07:58 Temperature Pulse Rate 78 85 85 Respiratory Rate 15 20 15 Blood Pressure Pulse Oximetry Oxygen Delivery Fraction of Inspired Oxygen 02/22/25 07:59 02/22/25 08:00 Temperature 98.3 F Pulse Rate 85 Respiratory Rate 21 H Blood Pressure 97/64 L Pulse Oximetry 99 Oxygen Delivery Fraction of Inspired Oxygen 30 Intake/Output Intake/Output: Intake & Output 02/19/25 02/20/25 02/21/25 02/22/25 23:59 23:59 23:59 23:59 Intake Total 4155.0 2852.9 2657.3 509.1 Output Total 1850 1200 4975 750 Balance 2305.0 1652.9 -2317.7 -240.9 Meds/Results Medications: Active Medications Generic Name Dose Route Start Last Admin Trade Name Freq PRN Reason Stop Dose Admin Acetaminophen 650 mg 02/16/25 14:42 Acetaminophen 325 Mg Tablet PO Q4H PRN Mild Pain (1-3) or Fever Hydrocodone Bitart/Acetaminophen 1 tab 02/16/25 22:21 Hydrocodone/Acetaminophen (*Crx) 5-325 Mg Tablet PO Q12H PRN Pain Rated 4-6 Albuterol/Ipratropium 3 ml 02/19/25 08:00 02/22/25 07:37 Ipratropium 0.5 Mg/Albuterol Sulfate 2.5 Mg Ampul.Neb 3 Ml INHALATION 3 ml Q6HRT [facility] Administration Calcium Carbonate 500 mg 02/17/25 09:00 02/18/25 18:52 Calcium Carbonate (Oscal) 500 Mg Tablet PO Not Given BID [facility] Cholestyramine Resin 4 gm 02/17/25 18:00 02/22/25 07:57 Cholestyramine Light 4 Gm Powd.Pack PO 4 gm BID@1000,1800 [facility] Administration Dexamethasone 4 mg 02/20/25 09:00 02/22/25 07:56 Dexamethasone 4 Mg Tablet PO 4 mg DAILY [facility] Administration Ferrous Sulfate 325 mg 02/20/25 09:00 02/22/25 07:56 Ferrous Sulfate [address] BY MOUTH 325 mg BID [facility] Administration Folic Acid 1 mg 02/17/25 09:00 02/22/25 07:56 Folic Acid 1 Mg Tablet PO 1 mg DAILY [facility] Administration Heparin Sodium (Beef Lung) 50 units 02/19/25 09:00 02/22/25 07:59 Heparin Flush 50 Units/5 Ml Syringe IV PUSH 50 units QAM [facility] Administration Heparin Sodium (Beef Lung) 50 units 02/18/25 19:00 Heparin Flush 50 Units/5 Ml Syringe IV PUSH PRN PRN after intermittent infusion Heparin Sodium (Beef Lung) 50 units 02/18/25 19:00 Heparin Flush 50 Units/5 Ml Syringe IV PUSH PRN PRN after blood draws Heparin Sodium (Porcine) 500 units 02/18/25 19:00 Heparin Sodium Lock Flush 500 Units/5 Ml Syringe IV PUSH PRN PRN see comments below Propofol 100 mls @ 10.836 mls/hr 02/18/25 18:45 02/22/25 07:58 Diprivan IV CONT 30 mcg/kg/min .Q9H14M [facility] 10.84 mls/hr Titration Protocol 30 MCG/KG/MIN Midazolam HCl 100 mg in 100 mls @ 0 mls/hr 02/19/25 13:35 02/22/25 07:57 Versed 100 Mg/Ns 100 Ml IV CONT 0 mg/hr .Q0M [facility] 0 mls/hr Titration Protocol Meropenem 2 gm/ Sodium 140 mls @ 280 mls/hr 02/21/25 08:00 02/22/25 08:06 Chloride IVPB 280 mls/hr Q12H [facility] Administration Vancomycin HCl 1,000 mg in 250 mls @ 250 mls/hr 02/21/25 22:00 02/21/25 23:10 Vancomycin 1,000 Mg/Ns 250 Ml IVPB Infused Q18H [facility] Infusion Loperamide HCl 2 mg 02/17/25 00:04 02/18/25 15:38 Loperamide Hcl 2 Mg Capsule PO 2 mg TID PRN Administration Diarrhea Losartan Potassium 25 mg 02/21/25 10:00 02/22/25 07:56 Losartan Potassium 25 Mg Tablet PO 25 mg DAILY [facility] Administration Melatonin 10 mg 02/18/25 21:00 Melatonin 5 Mg Tablet PO HS [facility] Multi-Ingred Cream/Lotion/Oil/Oint 1 applic 02/18/25 21:00 02/22/25 07:59 Mineral Oil/White Petrolatum Ointment EACH EYE 1 applic Q12HR [facility] Administration Nitroglycerin 0.4 mg 02/18/25 16:44 02/18/25 17:15 Nitroglycerin Sl 0.4 Mg Tablet SUBLINGUAL 0.4 mg Q5MIN PRN Administration Chest Pain Ondansetron HCl 4 mg 02/16/25 14:42 Ondansetron Inj 4 Mg/2 Ml Vial IV PUSH Q4H PRN Nausea Pantoprazole Sodium 40 mg 02/19/25 21:00 02/22/25 07:56 Pantoprazole Sodium Iv 40 Mg Vial IV PUSH 40 mg Q12HR [facility] Administration Sodium Chloride 10 ml 02/18/25 22:00 02/22/25 06:14 Central Line Flush IV PUSH 10 ml Q8HR [facility] Administration Sodium Chloride 10 ml 02/19/25 14:00 02/22/25 06:14 Central Line Flush IV PUSH 10 ml Q8HR [facility] Administration Sodium Chloride 10 ml 02/19/25 10:47 Central Line Flush IV PUSH PRN PRN with TPN bag changes Sodium Chloride 20 ml 02/19/25 10:47 Central Line Flush IV PUSH PRN PRN after blood draws Radiology Results: ITS Impressions Renal Ultrasound 02/17/25 08:54 IMPRESSION: 1. Normal kidneys without hydronephrosis. Abdomen X-Ray 02/18/25 19:29 IMPRESSION: Orogastric tube in good position and ready for immediate use. Head CT 02/19/25 09:07 IMPRESSION: No acute intracranial findings. Chest/Abdomen/Pelvis CT 02/19/25 09:17 IMPRESSION: CHEST: 1. Bilateral moderate pleural effusion with adjacent atelectasis versus pneumonia. 2. Trace of pericardial effusion. 3. Sclerotic changes in the superior endplate of T1. MRI evaluation to exclude acute fracture. ABDOMEN/PELVIS: 1. No evidence of appendicitis, diverticulitis or intestinal obstruction. No kidney stones. Venous Doppler Study 02/20/25 10:00 IMPRESSION: 1. Patent bilateral upper extremity veins. No evidence of venous thrombosis. Chest X-Ray 02/22/25 05:55 Impression: Bibasilar airspace disease, left worse than right. Correlate for pulmonary edema/atelectasis versus pneumonia. Probable small left pleural effusion. Support tubes, as above. Labs Labs: Laboratory Results - last 24 hr 02/21/25 02/21/25 02/21/25 11:57 18:09 20:17 WBC RBC Hgb Hct MCV MCH MCHC RDW Plt Count MPV Immature Gran % (Auto) Neut % (Auto) Lymph % (Auto) [place] % (Auto) Eos % (Auto) Baso % (Auto) Lymph # (Auto) [place] # (Auto) Eos # (Auto) Baso # (Auto) Abs Immat Gran (auto) Absolute Neuts (auto) Absolute Nucleated RBC Nucleated RBC % Puncture Site ABG pH ABG pCO2 ABG pO2 ABG PO2/FiO2 Ratio ABG HCO3 ABG O2 Saturation ABG O2 Content ABG Base Excess A-a Gradient Oxyhemoglobin Carboxyhemoglobin Methemoglobin Reduced Hemoglobin Total Hemoglobin O2 Delivery Device O2 Liters/Min Minute Volume Vent Rate Vent Mode FiO2 Tidal Volume PEEP Peak Inspir Pressure Pressure Support Sodium Potassium Chloride Carbon Dioxide Anion Gap BUN Creatinine Estim Creat Clear Calc Estimated GFR Glucose POC Capillary Glucose 121 H 148 H Calcium Phosphorus Magnesium Total Bilirubin AST ALT Alkaline Phosphatase Total Protein Albumin Random Vancomycin 12.5 02/22/25 02/22/25 02/22/25 00:16 04:43 05:02 WBC 20.6 H RBC 2.95 L Hgb 9.0 L Hct 28.4 L MCV 96.3 MCH 30.5 MCHC 31.7 L RDW 16.8 H Plt Count 208 MPV 10.1 Immature Gran % (Auto) 8.0 H Neut % (Auto) 76.3 H Lymph % (Auto) 8.4 L [place] % (Auto) 6.6 Eos % (Auto) 0.2 Baso % (Auto) 0.5 Lymph # (Auto) 1.72 [place] # (Auto) 1.4 H Eos # (Auto) 0.0 Baso # (Auto) 0.1 Abs Immat Gran (auto) 1.64 H Absolute Neuts (auto) 15.7 H Absolute Nucleated RBC 0.020 H Nucleated RBC % 0.1 Puncture Site Left brachial ABG pH 7.498 H ABG pCO2 39.9 ABG pO2 89.5 ABG PO2/FiO2 Ratio 2.98 ABG HCO3 30.3 H ABG O2 Saturation 97.4 ABG O2 Content 13.1 L ABG Base Excess 6.6 A-a Gradient 77.5 Oxyhemoglobin 96.7 Carboxyhemoglobin 0.2 Methemoglobin 0.3 Reduced Hemoglobin 2.8 Total Hemoglobin 9.5 L O2 Delivery Device Ventilator O2 Liters/Min Not Reportable Minute Volume Not Reportable Vent Rate 14 Vent Mode Cmv FiO2 30 Tidal Volume 350 PEEP 5 Peak Inspir Pressure Not Reportable Pressure Support Not Reportable Sodium 140 Potassium 4.2 Chloride 103 Carbon Dioxide 29 Anion Gap 8 BUN 14 Creatinine 0.82 Estim Creat Clear Calc 53 Estimated GFR > 60 Glucose 102 POC Capillary Glucose 123 H Calcium 7.6 L Phosphorus 2.4 L Magnesium 1.7 Total Bilirubin < 0.1 L AST 25 ALT 13 Alkaline Phosphatase 94 Total Protein 5.6 L Albumin 3.2 L Random Vancomycin Quality VTE Prophylaxis VTE prophylaxis: pharmacologic ordered
--- NOTE | 2025-02-22 09:55 | P.PNNP_ITS ---
Progress Note: A&P Assessment and Plan (1) Acute kidney injury: Code(s): N17.9 - Acute kidney failure, unspecified Status: Resolved Assessment and Plan: * resolved * multifactorial etiology: * prerenal factors (poor oral intake + ongoing diarrhea) * hemodynamic instability/hypotension * infection/early sepsis(?) * use of ARB prior to admission * other(?) * evaluation noted: * renal ultrasound okay * urine electrolytes prerenal * urine eosinophils negative * CPK okay * moderate proteinuria * follow trend of repeat labs and UOP (2) Stage 3a chronic kidney disease: Code(s): N18.31 - Chronic kidney disease, stage 3a Status: Chronic Assessment and Plan: * baseline creatinine runs ~ 0.8 - 1.2mg/dl * presumably due to hypertension and age-related change (3) Hypoxic respiratory failure: Code(s): J96.91 - Respiratory failure, unspecified with hypoxia Status: Acute Assessment and Plan: * likely secondary to pneumonia versus moderate pleural effusions bilaterally * worsening hypoxia noted on 02/18 evening in association with tachypnea -- intubated at that time * remains on mechanical ventilation at this time * continue diuresis as tolerated * ventilator weaning as tolerated (4) Cardiomyopathy: Code(s): I42.9 - Cardiomyopathy, unspecified Status: Acute Assessment and Plan: * new onset versus chronic issue?? * Echo (02/19) noted: * left ventricular systolic function is severely globally reduced, estimated at 20 - 25% * The small basal segments appear to be spared which could suggest Takotsubo cardiomyopathy * left ventricular diastolic function is grade I diastolic dysfunction * trace aortic valve regurgitation * mild mitral valve regurgitation * mild tricuspid valve regurgitation * mild pulmonary hypertension, estimated pulmonary arterial systolic pressure is 43 mmHg * Cardiology following * initiated on GMDT as tolerated (5) Anemia: Code(s): D64.9 - Anemia, unspecified Status: Acute Assessment and Plan: * noted decline in H/H since adimssion * related to acute illness, underlying malignancy, and possible GI loss * GI following * PRBC transfusion per protocol * on PPI * follow trend of H/H (6) Metabolic acidosis: Code(s): E87.20 - Acidosis, unspecified Status: Resolved Assessment and Plan: * resolved * off bicarb fluids * lactic acid better as well * follow trend of CO2 (7) Diarrhea: Qualifiers: Diarrhea type: presumed infectious Qualified Code(s): R19.7 - Diarrhea, unspecified Code(s): R19.7 - Diarrhea, unspecified Status: Acute Assessment and Plan: * GI following * C. diff toxin assay negative * on cholestyramine * stool culture negative to date * clinical improvement noted (8) Adenocarcinoma of left lung, stage 4: Code(s): C34.92 - Malignant neoplasm of unspecified part of left bronchus or lung Status: Chronic Assessment and Plan: * known diagnosis * chemotherapy apparently on hold * follows with Hem/Onc Not much else to add -- will continue to follow from a distance. L Subjective Date/time seen: 02/22/25 09:55 Interval history: Follow-up for acute kidney injury/acute renal failure. Chart reviewed since last seen -- remains intubated/sedated and on mechanical ventilation; renal function/creatinine has normalized and remains responsive to diuretic therapy with good urine output; remains hemodynamically stable at this time. Exam 2 Narrative: General: elderly but WD/WN female intubated/sedated and on mechanical ventilation Heart: normal S1 and S2; no rub Lungs: Mild coarse upper airway noise Abdomen: soft, nontender, + bowel sounds Extremities: no edema Skin: no nodules Objective Data Vital Signs Vital Signs: Vital Signs Temp Pulse Resp BP Pulse Ox O2 Del Method FiO2 02/22/25 09:17 91 15 02/22/25 08:00 85 21 H 99 Mechanical Ventilation 02/22/25 08:00 30 02/22/25 07:59 98.3 F 85 21 H 97/64 L 99 02/22/25 07:58 85 15 02/22/25 07:57 85 20 02/22/25 07:51 78 15 02/22/25 07:42 78 98 Mechanical Ventilation 02/22/25 06:00 71 15 02/22/25 06:00 71 15 02/22/25 06:00 97.6 F 71 14 103/66 100 02/22/25 06:00 71 02/22/25 05:13 73 97 Mechanical Ventilation 02/22/25 04:00 71 02/22/25 04:00 100 Mechanical Ventilation 02/22/25 04:00 30 02/22/25 04:00 97.4 F L 71 14 109/71 99 02/22/25 04:00 71 14 02/22/25 03:56 71 14 02/22/25 03:55 71 14 02/22/25 03:30 70 14 02/22/25 02:47 59 L 14 02/22/25 02:47 59 L 99 Mechanical Ventilation 30 02/22/25 02:00 64 14 02/22/25 02:00 64 14 02/22/25 02:00 98.1 F 64 14 99/70 L 99 02/22/25 02:00 63 02/22/25 00:00 99 Mechanical Ventilation 30 02/22/25 00:00 77 02/22/25 00:00 78 16 02/22/25 00:00 78 16 02/22/25 00:00 98.5 F 78 16 114/70 100 02/22/25 00:00 30 02/21/25 23:20 72 99 Mechanical Ventilation 02/21/25 22:19 77 14 02/21/25 22:19 77 14 02/21/25 22:00 80 02/21/25 22:00 99 F 80 14 102/64 98 02/21/25 22:00 80 14 02/21/25 22:00 80 14 02/21/25 21:33 92 18 02/21/25 20:31 86 18 02/21/25 20:24 79 100 Mechanical Ventilation 02/21/25 20:24 77 16 02/21/25 20:00 98 Mechanical Ventilation 02/21/25 20:00 80 02/21/25 20:00 78 16 02/21/25 20:00 78 16 02/21/25 20:00 30 02/21/25 20:00 99.2 F 79 16 111/69 99 02/21/25 18:00 77 02/21/25 18:00 77 15 02/21/25 18:00 77 15 02/21/25 18:00 99.3 F 80 17 131/77 99 02/21/25 17:32 79 99 Mechanical Ventilation 02/21/25 17:08 77 15 02/21/25 17:08 77 15 02/21/25 16:00 79 02/21/25 16:00 30 02/21/25 16:00 98 Mechanical Ventilation 30 02/21/25 16:00 81 17 02/21/25 16:00 83 18 02/21/25 16:00 99.2 F 83 18 125/75 99 02/21/25 14:00 94 17 02/21/25 14:00 94 02/21/25 14:00 89 16 02/21/25 14:00 99.1 F 94 17 124/75 99 02/21/25 13:26 90 17 02/21/25 13:12 80 17 02/21/25 13:12 80 98 Mechanical Ventilation 30 Intake/Output Intake/Output: Intake & Output 02/19/25 02/20/25 02/21/25 02/22/25 23:59 23:59 23:59 23:59 Intake Total 4155.0 2852.9 2657.3 536.2 Output Total 1850 1200 4975 2250 Balance 2305.0 1652.9 -2317.7 -1713.8 Meds/Results Medications: Active Medications Generic Name Dose Route Start Last Admin Trade Name Freq PRN Reason Stop Dose Admin Acetaminophen 650 mg 02/16/25 14:42 Acetaminophen 325 Mg Tablet PO Q4H PRN Mild Pain (1-3) or Fever Hydrocodone Bitart/Acetaminophen 1 tab 02/16/25 22:21 Hydrocodone/Acetaminophen (*Crx) 5-325 Mg Tablet PO Q12H PRN Pain Rated 4-6 Albuterol/Ipratropium 3 ml 02/19/25 08:00 02/22/25 07:37 Ipratropium 0.5 Mg/Albuterol Sulfate 2.5 Mg Ampul.Neb 3 Ml INHALATION 3 ml Q6HRT LISSETTE Administration Calcium Carbonate 500 mg 02/17/25 09:00 02/18/25 18:52 Calcium Carbonate (Oscal) 500 Mg Tablet PO Not Given BID COUNTS INCLUDE 234 BEDS AT THE [facility] Cholestyramine Resin 4 gm 02/17/25 18:00 02/22/25 07:57 Cholestyramine Light 4 Gm Powd.Pack PO 4 gm BID@1000,1800 LISSETTE Administration Dexamethasone 4 mg 02/20/25 09:00 02/22/25 07:56 Dexamethasone 4 Mg Tablet PO 4 mg DAILY LISSETTE Administration Ferrous Sulfate 325 mg 02/20/25 09:00 02/22/25 07:56 Ferrous Sulfate [address] BY MOUTH 325 mg BID LISSETTE Administration Folic Acid 1 mg 02/17/25 09:00 02/22/25 07:56 Folic Acid 1 Mg Tablet PO 1 mg DAILY LISSETTE Administration Heparin Sodium (Beef Lung) 50 units 02/19/25 09:00 02/22/25 07:59 Heparin Flush 50 Units/5 Ml Syringe IV PUSH 50 units QAM LISSETTE Administration Heparin Sodium (Beef Lung) 50 units 02/18/25 19:00 Heparin Flush 50 Units/5 Ml Syringe IV PUSH PRN PRN after intermittent infusion Heparin Sodium (Beef Lung) 50 units 02/18/25 19:00 Heparin Flush 50 Units/5 Ml Syringe IV PUSH PRN PRN after blood draws Heparin Sodium (Porcine) 500 units 02/18/25 19:00 Heparin Sodium Lock Flush 500 Units/5 Ml Syringe IV PUSH PRN PRN see comments below Propofol 100 mls @ 0 mls/hr 02/18/25 18:45 02/22/25 11:32 Diprivan IV CONT 0 mcg/kg/min .Q0M LISSETTE 0 mls/hr Titration Protocol 0 MCG/KG/MIN Midazolam HCl 100 mg in 100 mls @ 0 mls/hr 02/19/25 13:35 02/22/25 12:00 Versed 100 Mg/Ns 100 Ml IV CONT 0 mg/hr .Q0M LISSETTE 0 mls/hr Titration Protocol Meropenem 2 gm/ Sodium 140 mls @ 280 mls/hr 02/22/25 15:00 Chloride IVPB Q8H LISSETTE Dexmedetomidine HCl 400 mcg in 100 mls @ 3.505 mls/hr 02/22/25 12:20 Precedex 400 Mcg/100 Ml IV CONT .[id number] LISSETTE Protocol 0.2 MCG/KG/HR Loperamide HCl 2 mg 02/17/25 00:04 02/18/25 15:38 Loperamide Hcl 2 Mg Capsule PO 2 mg TID PRN Administration Diarrhea Losartan Potassium 25 mg 02/21/25 10:00 02/22/25 07:56 Losartan Potassium 25 Mg Tablet PO 25 mg DAILY LISSETTE Administration Melatonin 10 mg 02/18/25 21:00 Melatonin 5 Mg Tablet PO HS COUNTS INCLUDE 234 BEDS AT THE [facility] Multi-Ingred Cream/Lotion/Oil/Oint 1 applic 02/18/25 21:00 02/22/25 07:59 Mineral Oil/White Petrolatum Ointment EACH EYE 1 applic Q12HR LISSETTE Administration Nitroglycerin 0.4 mg 02/18/25 16:44 02/18/25 17:15 Nitroglycerin Sl 0.4 Mg Tablet SUBLINGUAL 0.4 mg Q5MIN PRN Administration Chest Pain Ondansetron HCl 4 mg 02/16/25 14:42 Ondansetron Inj 4 Mg/2 Ml Vial IV PUSH Q4H PRN Nausea Pantoprazole Sodium 40 mg 02/19/25 21:00 02/22/25 07:56 Pantoprazole Sodium Iv 40 Mg Vial IV PUSH 40 mg Q12HR LISSETTE Administration Sodium Chloride 10 ml 02/18/25 22:00 02/22/25 06:14 Central Line Flush IV PUSH 10 ml Q8HR LISSETTE Administration Sodium Chloride 10 ml 02/19/25 14:00 02/22/25 06:14 Central Line Flush IV PUSH 10 ml Q8HR LISSETTE Administration Sodium Chloride 10 ml 02/19/25 10:47 Central Line Flush IV PUSH PRN PRN with TPN bag changes Sodium Chloride 20 ml 02/19/25 10:47 Central Line Flush IV PUSH PRN PRN after blood draws Radiology Results: ITS Impressions Renal Ultrasound 02/17/25 08:54 IMPRESSION: 1. Normal kidneys without hydronephrosis. Abdomen X-Ray 02/18/25 19:29 IMPRESSION: Orogastric tube in good position and ready for immediate use. Head CT 02/19/25 09:07 IMPRESSION: No acute intracranial findings. Chest/Abdomen/Pelvis CT 02/19/25 09:17 IMPRESSION: CHEST: 1. Bilateral moderate pleural effusion with adjacent atelectasis versus pneumonia. 2. Trace of pericardial effusion. 3. Sclerotic changes in the superior endplate of T1. MRI evaluation to exclude acute fracture. ABDOMEN/PELVIS: 1. No evidence of appendicitis, diverticulitis or intestinal obstruction. No kidney stones. Venous Doppler Study 02/20/25 10:00 IMPRESSION: 1. Patent bilateral upper extremity veins. No evidence of venous thrombosis. Chest X-Ray 02/22/25 05:55 Impression: Bibasilar airspace disease, left worse than right. Correlate for pulmonary edema/atelectasis versus pneumonia. Probable small left pleural effusion. Support tubes, as above. Labs Labs: Laboratory Tests 02/22/25 04:43 02/22/25 04:43 Calcium 7.6 L Phosphorus 2.4 L Magnesium 1.7 Total Bilirubin < 0.1 L AST 25 ALT 13 Alkaline Phosphatase 94 Total Protein 5.6 L Albumin 3.2 L Microbiology 06/26/25 12:29 Stool Stool for WBCs - Final 02/18/25 12:29 Stool Escherichia coli Shiga Toxins - Final 02/18/25 12:29 Stool Salmonella/Shigella Culture - Final 02/18/25 12:29 Stool Campylobacter Antigen Assay - Final 02/16/25 11:59 Blood Blood Culture - Final 02/16/25 11:46 Blood Blood Culture - Final 02/18/25 23:23 Sputum Sputum Culture - Final Yeast isolated
--- NOTE | 2025-02-22 11:09 | PCFNICU ---
ICU Rounding Note: Pt current nutrition is Vital AF 1.2 at 45 ml/hr. Nutrition recommendation: Vital AF 1.2 at 55 ml/hr. Last recorded weight is 70.1 kg unsure of weight 2/2 to 57 kg on admit. Nursing will reweigh pt. Bowel Motility: Last reported BM 02/18 Labs Reviewed:PO4 2.4, Alb 3.2, Hct 28.4, Hgb 9.0 Meds Noted: Propofol 20 fqmv=558 kcal, Precedex Skin: WNL Additional Notes: Patient remains on a mechanical vent. Tube feedings are being tolerated of Vital AF 1.2 at 45 ml/hr. Recommend increasing tube feedings to 55 ml/hr to better meet caloric needs. Total Nutrition: 1643 kcal/91 gm protein/981 ml water. Flush 30 ml q 4 hours. Following daily in ICU rounds. Monitor labs, tube feeding tolerance, weights, meds output, plan of care. Reassess Saturday/Fridays.
[2025-02-22] MEDS: dexmedeTOMIDine 400 MCG/100 ML 400 MCG/100 ML BAG 8.76 MCG IV CONT (12:39)
--- NOTE | 2025-02-22 12:47 | P.PNCA_ITS ---
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 New onset systolic heart failure -would resume her losartan at lower dose of 25 mg p.o. daily when okay from renal perspective -in efforts of early extubation, would recommend keeping her ins and outs net negative using Lasix p.r.n. -when she is more stable, we can initiate metoprolol succinate 25 mg p.o. daily -cardiac catheterization to define a coronary anatomy is not ideal at this time given recent acute anemia requiring transfusion along with her recently recovering severe renal dysfunction -eventually, if in the alignment with her goals of care, we can discuss cardiac catheterization in the outpatient setting to ensure no multivessel coronary artery disease as well as repeating transthoracic echocardiogram 3 months after guideline directed medical therapy -Will gradually introduce GDMT when she is extubated and more stable. Troponin elevation -unlikely secondary to plaque rupture -given that she is hemodynamically stable and requiring recent blood transfusion for acute anemia, would avoid anticoagulation as risk outweighs benefits at this time Acute anemia -status post transfusion 1 unit packed red blood cells on 02/20/2025 Subjective Date/time seen: 02/22/25 12:47 Interval history: Cardiology follow up visit Intubated and sedated Date of service 02/22/2025: Sedation weaned for possible extubation. She is agitated. Review of Systems Review of Systems: ROS unobtainable: Yes unobtainable due to endotracheal tube and unobtainable due to medical condition Exam Const: Other: Intubated HENMT: Other: ETT in place Neck: Neck: no JVD Resp: Auscultation: rhonchi Cardio: Rate: regular rate Rhythm: regular rhythm Urinary Catheter: Urinary Catheter: patent and draining Extrem: General: no pedal edema Objective Data Vital Signs Vital Signs: Vital Signs - 24 hr 02/21/25 13:12 02/21/25 13:12 02/21/25 13:26 Temperature Pulse Rate 80 80 90 Respiratory Rate 17 17 Blood Pressure Pulse Oximetry 98 Oxygen Delivery Mechanical Ventilation Fraction of Inspired Oxygen 30 02/21/25 14:00 02/21/25 14:00 02/21/25 14:00 Temperature 37.3 C Pulse Rate 94 89 94 Respiratory Rate 17 16 Blood Pressure 124/75 Pulse Oximetry 99 Oxygen Delivery Fraction of Inspired Oxygen 02/21/25 14:00 02/21/25 16:00 02/21/25 16:00 Temperature 37.3 C Pulse Rate 94 83 83 Respiratory Rate 17 18 18 Blood Pressure 125/75 Pulse Oximetry 99 Oxygen Delivery Fraction of Inspired Oxygen 02/21/25 16:00 02/21/25 16:00 02/21/25 16:00 Temperature Pulse Rate 81 Respiratory Rate 17 Blood Pressure Pulse Oximetry 98 Oxygen Delivery Mechanical Ventilation Fraction of Inspired Oxygen 30 02/21/25 16:00 02/21/25 17:08 02/21/25 17:08 Temperature Pulse Rate 79 77 77 Respiratory Rate 15 15 Blood Pressure Pulse Oximetry Oxygen Delivery Fraction of Inspired Oxygen 02/21/25 17:32 02/21/25 18:00 02/21/25 18:00 Temperature 37.4 C Pulse Rate 79 80 77 Respiratory Rate 17 15 Blood Pressure 131/77 Pulse Oximetry 99 99 Oxygen Delivery Mechanical Ventilation Fraction of Inspired Oxygen 30 02/21/25 18:00 02/21/25 18:00 02/21/25 20:00 Temperature 37.3 C Pulse Rate 77 77 79 Respiratory Rate 15 16 Blood Pressure 111/69 Pulse Oximetry 99 Oxygen Delivery Fraction of Inspired Oxygen 02/21/25 20:00 02/21/25 20:00 02/21/25 20:00 Temperature Pulse Rate 78 78 Respiratory Rate 16 16 Blood Pressure Pulse Oximetry Oxygen Delivery Fraction of Inspired Oxygen 02/21/25 20:00 02/21/25 20:00 02/21/25 20:24 Temperature Pulse Rate 80 77 Respiratory Rate 16 Blood Pressure Pulse Oximetry 98 Oxygen Delivery Mechanical Ventilation Fraction of Inspired Oxygen 30 02/21/25 20:24 02/21/25 20:31 02/21/25 21:33 Temperature Pulse Rate 79 86 92 Respiratory Rate 18 18 Blood Pressure Pulse Oximetry 100 Oxygen Delivery Mechanical Ventilation Fraction of Inspired Oxygen 30 02/21/25 22:00 02/21/25 22:00 02/21/25 22:00 Temperature 37.2 C Pulse Rate 80 80 80 Respiratory Rate 14 14 14 Blood Pressure 102/64 Pulse Oximetry 98 Oxygen Delivery Fraction of Inspired Oxygen 02/21/25 22:00 02/21/25 22:19 02/21/25 22:19 Temperature Pulse Rate 80 77 77 Respiratory Rate 14 14 Blood Pressure Pulse Oximetry Oxygen Delivery Fraction of Inspired Oxygen 02/21/25 23:20 02/22/25 00:00 02/22/25 00:00 Temperature 36.9 C Pulse Rate 72 78 Respiratory Rate 16 Blood Pressure 114/70 Pulse Oximetry 99 100 Oxygen Delivery Mechanical Ventilation Fraction of Inspired Oxygen 30 02/22/25 00:00 02/22/25 00:00 02/22/25 00:00 Temperature Pulse Rate 78 78 77 Respiratory Rate 16 16 Blood Pressure Pulse Oximetry Oxygen Delivery Fraction of Inspired Oxygen 02/22/25 00:00 02/22/25 02:00 02/22/25 02:00 Temperature 36.7 C Pulse Rate 63 64 Respiratory Rate 14 Blood Pressure 99/70 L Pulse Oximetry 99 99 Oxygen Delivery Mechanical Ventilation Fraction of Inspired Oxygen 30 02/22/25 02:00 02/22/25 02:00 02/22/25 02:47 Temperature Pulse Rate 64 64 59 L Respiratory Rate 14 14 Blood Pressure Pulse Oximetry 99 Oxygen Delivery Mechanical Ventilation Fraction of Inspired Oxygen 30 02/22/25 02:47 02/22/25 03:30 02/22/25 03:55 Temperature Pulse Rate 59 L 70 71 Respiratory Rate 14 14 14 Blood Pressure Pulse Oximetry Oxygen Delivery Fraction of Inspired Oxygen 02/22/25 03:56 02/22/25 04:00 02/22/25 04:00 Temperature 36.3 C L Pulse Rate 71 71 71 Respiratory Rate 14 14 14 Blood Pressure 109/71 Pulse Oximetry 99 Oxygen Delivery Fraction of Inspired Oxygen 02/22/25 04:00 02/22/25 04:00 02/22/25 04:00 Temperature Pulse Rate 71 Respiratory Rate Blood Pressure Pulse Oximetry 100 Oxygen Delivery Mechanical Ventilation Fraction of Inspired Oxygen 30 30 02/22/25 05:13 02/22/25 06:00 02/22/25 06:00 Temperature 36.4 C Pulse Rate 73 71 71 Respiratory Rate 14 Blood Pressure 103/66 Pulse Oximetry 97 100 Oxygen Delivery Mechanical Ventilation Fraction of Inspired Oxygen 30 02/22/25 06:00 02/22/25 06:00 02/22/25 07:42 Temperature Pulse Rate 71 71 78 Respiratory Rate 15 15 Blood Pressure Pulse Oximetry 98 Oxygen Delivery Mechanical Ventilation Fraction of Inspired Oxygen 30 02/22/25 07:51 02/22/25 07:57 02/22/25 07:58 Temperature Pulse Rate 78 85 85 Respiratory Rate 15 20 15 Blood Pressure Pulse Oximetry Oxygen Delivery Fraction of Inspired Oxygen 02/22/25 07:59 02/22/25 08:00 02/22/25 08:00 Temperature 36.8 C Pulse Rate 85 85 Respiratory Rate 21 H 21 H Blood Pressure 97/64 L Pulse Oximetry 99 99 Oxygen Delivery Mechanical Ventilation Fraction of Inspired Oxygen 30 02/22/25 09:17 02/22/25 10:00 02/22/25 10:00 Temperature 37.0 C Pulse Rate 91 90 95 Respiratory Rate 15 18 15 Blood Pressure 104/61 Pulse Oximetry 94 Oxygen Delivery Fraction of Inspired Oxygen 02/22/25 10:29 02/22/25 10:34 02/22/25 11:32 Temperature Pulse Rate 74 94 96 Respiratory Rate 15 15 Blood Pressure Pulse Oximetry 98 Oxygen Delivery Mechanical Ventilation Fraction of Inspired Oxygen 30 02/22/25 12:00 02/22/25 12:00 02/22/25 12:39 Temperature 37.3 C Pulse Rate 98 97 112 H Respiratory Rate 15 20 23 H Blood Pressure 124/73 Pulse Oximetry 95 Oxygen Delivery Fraction of Inspired Oxygen Intake/Output Intake/Output: Intake & Output 02/19/25 02/20/25 02/21/25 02/22/25 23:59 23:59 23:59 23:59 Intake Total 4155.0 2852.9 2657.3 536.2 Output Total 1850 1200 4975 2250 Balance 2305.0 1652.9 -2317.7 -1713.8 Meds/Results Medications: Active Medications Generic Name Dose Route Start Last Admin Trade Name Freq PRN Reason Stop Dose Admin Acetaminophen 650 mg 02/16/25 14:42 Acetaminophen 325 Mg Tablet PO Q4H PRN Mild Pain (1-3) or Fever Hydrocodone Bitart/Acetaminophen 1 tab 02/16/25 22:21 Hydrocodone/Acetaminophen (*Crx) 5-325 Mg Tablet PO Q12H PRN Pain Rated 4-6 Albuterol/Ipratropium 3 ml 02/19/25 08:00 02/22/25 07:37 Ipratropium 0.5 Mg/Albuterol Sulfate 2.5 Mg Ampul.Neb 3 Ml INHALATION 3 ml Q6HRT LISSETTE Administration Calcium Carbonate 500 mg 02/17/25 09:00 02/18/25 18:52 Calcium Carbonate (Oscal) 500 Mg Tablet PO Not Given BID [facility] Cholestyramine Resin 4 gm 02/17/25 18:00 02/22/25 07:57 Cholestyramine Light 4 Gm Powd.Pack PO 4 gm BID@1000,1800 LISSETTE Administration Dexamethasone 4 mg 02/20/25 09:00 02/22/25 07:56 Dexamethasone 4 Mg Tablet PO 4 mg DAILY LISSETTE Administration Ferrous Sulfate 325 mg 02/20/25 09:00 02/22/25 07:56 Ferrous Sulfate [address] BY MOUTH 325 mg BID LISSETTE Administration Folic Acid 1 mg 02/17/25 09:00 02/22/25 07:56 Folic Acid 1 Mg Tablet PO 1 mg DAILY LIS[place]TE Administration Heparin Sodium (Beef Lung) 50 units 02/19/25 09:00 02/22/25 07:59 Heparin Flush 50 Units/5 Ml Syringe IV PUSH 50 units QAM LISSETTE Administration Heparin Sodium (Beef Lung) 50 units 02/18/25 19:00 Heparin Flush 50 Units/5 Ml Syringe IV PUSH PRN PRN after intermittent infusion Heparin Sodium (Beef Lung) 50 units 02/18/25 19:00 Heparin Flush 50 Units/5 Ml Syringe IV PUSH PRN PRN after blood draws Heparin Sodium (Porcine) 500 units 02/18/25 19:00 Heparin Sodium Lock Flush 500 Units/5 Ml Syringe IV PUSH PRN PRN see comments below Propofol 100 mls @ 0 mls/hr 02/18/25 18:45 02/22/25 11:32 Diprivan IV CONT 0 mcg/kg/min .Q0M LISSETTE 0 mls/hr Titration Protocol 0 MCG/KG/MIN Midazolam HCl 100 mg in 100 mls @ 0 mls/hr 02/19/25 13:35 02/22/25 12:00 Versed 100 Mg/Ns 100 Ml IV CONT 0 mg/hr .Q0M LISSETTE 0 mls/hr Titration Protocol Meropenem 2 gm/ Sodium 140 mls @ 280 mls/hr 02/22/25 15:00 Chloride IVPB Q8H L[place] Dexmedetomidine HCl 400 mcg in 100 mls @ 3.505 mls/hr 02/22/25 12:20 02/22/25 12:39 Precedex 400 Mcg/100 Ml IV CONT 0.5 mcg/kg/hr .[id number] LISSETTE 8.76 mls/hr Administration Protocol 0.2 MCG/KG/HR Loperamide HCl 2 mg 02/17/25 00:04 02/18/25 15:38 Loperamide Hcl 2 Mg Capsule PO 2 mg TID PRN Administration Diarrhea Losartan Potassium 25 mg 02/21/25 10:00 02/22/25 07:56 Losartan Potassium 25 Mg Tablet PO 25 mg DAILY LIS[place]TE Administration Melatonin 10 mg 02/18/25 21:00 Melatonin 5 Mg Tablet PO HS LIS[place]TE Multi-Ingred Cream/Lotion/Oil/Oint 1 applic 02/18/25 21:00 02/22/25 07:59 Mineral Oil/White Petrolatum Ointment EACH EYE 1 applic Q12HR LIS[place]TE Administration Nitroglycerin 0.4 mg 02/18/25 16:44 02/18/25 17:15 Nitroglycerin Sl 0.4 Mg Tablet SUBLINGUAL 0.4 mg Q5MIN PRN Administration Chest Pain Ondansetron HCl 4 mg 02/16/25 14:42 Ondansetron Inj 4 Mg/2 Ml Vial IV PUSH Q4H PRN Nausea Pantoprazole Sodium 40 mg 02/19/25 21:00 02/22/25 07:56 Pantoprazole Sodium Iv 40 Mg Vial IV PUSH 40 mg Q12HR LIS[place]TE Administration Sodium Chloride 10 ml 02/18/25 22:00 02/22/25 06:14 Central Line Flush IV PUSH 10 ml Q8HR LIS[place]TE Administration Sodium Chloride 10 ml 02/19/25 14:00 02/22/25 06:14 Central Line Flush IV PUSH 10 ml Q8HR LIS[place]TE Administration Sodium Chloride 10 ml 02/19/25 10:47 Central Line Flush IV PUSH PRN PRN with TPN bag changes Sodium Chloride 20 ml 02/19/25 10:47 Central Line Flush IV PUSH PRN PRN after blood draws Radiology Results: ITS Impressions Renal Ultrasound 02/17/25 08:54 IMPRESSION: 1. Normal kidneys without hydronephrosis. Abdomen X-Ray 02/18/25 19:29 IMPRESSION: Orogastric tube in good position and ready for immediate use. Head CT 02/19/25 09:07 IMPRESSION: No acute intracranial findings. Chest/Abdomen/Pelvis CT 02/19/25 09:17 IMPRESSION: CHEST: 1. Bilateral moderate pleural effusion with adjacent atelectasis versus pneumonia. 2. Trace of pericardial effusion. 3. Sclerotic changes in the superior endplate of T1. MRI evaluation to exclude acute fracture. ABDOMEN/PELVIS: 1. No evidence of appendicitis, diverticulitis or intestinal obstruction. No kidney stones. Venous Doppler Study 02/20/25 10:00 IMPRESSION: 1. Patent bilateral upper extremity veins. No evidence of venous thrombosis. Chest X-Ray 02/22/25 05:55 Impression: Bibasilar airspace disease, left worse than right. Correlate for pulmonary edema/atelectasis versus pneumonia. Probable small left pleural effusion. Support tubes, as above. Labs Labs: Laboratory Results - last 24 hr 02/21/25 02/21/25 02/22/25 18:09 20:17 00:16 WBC RBC Hgb Hct MCV MCH MCHC RDW Plt Count MPV Immature Gran % (Auto) Neut % (Auto) Lymph % (Auto) Adams % (Auto) Eos % (Auto) Baso % (Auto) Lymph # (Auto) Adams # (Auto) Eos # (Auto) Baso # (Auto) Abs Immat Gran (auto) Absolute Neuts (auto) Absolute Nucleated RBC Nucleated RBC % Puncture Site ABG pH ABG pCO2 ABG pO2 ABG PO2/FiO2 Ratio ABG HCO3 ABG O2 Saturation ABG O2 Content ABG Base Excess A-a Gradient Oxyhemoglobin Carboxyhemoglobin Methemoglobin Reduced Hemoglobin Total Hemoglobin O2 Delivery Device O2 Liters/Min Minute Volume Vent Rate Vent Mode FiO2 Tidal Volume PEEP Peak Inspir Pressure Pressure Support Sodium Potassium Chloride Carbon Dioxide Anion Gap BUN Creatinine Estim Creat Clear Calc Estimated GFR Glucose POC Capillary Glucose 148 H 123 H Calcium Phosphorus Magnesium Total Bilirubin AST ALT Alkaline Phosphatase Total Protein Albumin Random Vancomycin 12.5 02/22/25 02/22/25 02/22/25 04:43 05:02 11:07 WBC 20.6 H RBC 2.95 L Hgb 9.0 L Hct 28.4 L MCV 96.3 MCH 30.5 MCHC 31.7 L RDW 16.8 H Plt Count 208 MPV 10.1 Immature Gran % (Auto) 8.0 H Neut % (Auto) 76.3 H Lymph % (Auto) 8.4 L Adams % (Auto) 6.6 Eos % (Auto) 0.2 Baso % (Auto) 0.5 Lymph # (Auto) 1.72 Adams # (Auto) 1.4 H Eos # (Auto) 0.0 Baso # (Auto) 0.1 Abs Immat Gran (auto) 1.64 H Absolute Neuts (auto) 15.7 H Absolute Nucleated RBC 0.020 H Nucleated RBC % 0.1 Puncture Site Left brachial ABG pH 7.498 H ABG pCO2 39.9 ABG pO2 89.5 ABG PO2/FiO2 Ratio 2.98 ABG HCO3 30.3 H ABG O2 Saturation 97.4 ABG O2 Content 13.1 L ABG Base Excess 6.6 A-a Gradient 77.5 Oxyhemoglobin 96.7 Carboxyhemoglobin 0.2 Methemoglobin 0.3 Reduced Hemoglobin 2.8 Total Hemoglobin 9.5 L O2 Delivery Device Ventilator O2 Liters/Min Not Reportable Minute Volume Not Reportable Vent Rate 14 Vent Mode Cmv FiO2 30 Tidal Volume 350 PEEP 5 Peak Inspir Pressure Not Reportable Pressure Support Not Reportable Sodium 140 Potassium 4.2 Chloride 103 Carbon Dioxide 29 Anion Gap 8 BUN 14 Creatinine 0.82 Estim Creat Clear Calc 53 Estimated GFR > 60 Glucose 102 POC Capillary Glucose 122 H Calcium 7.6 L Phosphorus 2.4 L Magnesium 1.7 Total Bilirubin < 0.1 L AST 25 ALT 13 Alkaline Phosphatase 94 Total Protein 5.6 L Albumin 3.2 L Random Vancomycin Quality VTE Prophylaxis VTE prophylaxis: pharmacologic ordered
--- NOTE | 2025-02-22 13:19 | PCRCNOTE ---
pt placed on 05/30 SBT at 12:35
[2025-02-22 14:12] LABS: Alveolar/Arterial O2 Gradient 95.1 mmHg; Fractional Inspired Oxygen 30 %; HCO3 ABG 30.4 mEq/l (22.0-26.0); Oxygen Content ABG 14.7 %vol (16.0-22.0); Oxygen Saturation ABG 97.4 % (95.0-100.0); PCO2 ABG 32.4 mmHg (35.0-45.0); PO2 ABG 80.7 mmHg (80.0-100.0); PO2 FiO2 Ratio Arterial Blood 2.69 %
[2025-02-22 14:26] LABS: Modified Allen's Test Pass; Site Drawn LEFT RADIAL
[2025-02-22 14:27] LABS: Arterial Blood Gas Pressure Support 8 cmH2O
--- NOTE | 2025-02-22 14:28 | PCRCNOTE ---
extubated to 2L 14:25
--- NOTE | 2025-02-22 14:36 | PM.IMPN ---
Progress Note: A&P Assessment and Plan (1) Hypoxic respiratory failure: Code(s): J96.91 - Respiratory failure, unspecified with hypoxia Status: Acute Assessment and Plan: Acute hypoxic respiratory failure: Likely related to pneumonia versus moderate pleural effusions bilaterally -hypoxic respiratory failure on ABG down 02/18, as patient was tachypneic, short of breath, decreased O2 sats. PH was 7.13/23/58/7.8/82% -02/18: Intubated in the ICU by ER physician -currently on CMV mode of ventilation, peep of 5, 35% FiO2. -ABGs and chest x-ray/CT chest reviewed: Ventilator adjusted, e -added DuoNebs -started on vancomycin and meropenem, discontinue ceftriaxone -02/19: Blood cultures , preliminary report shows no growth x2 -02/18: Sputum cultures, no growth -sedated with propofol and Versed infusion, maintain RASS of 0 to -1, have asked the bedside RN to decrease the sedation to evaluate neurological status -have asked the bedside RN to start Precedex infusion and wean off propofol and Versed -patient responded well to Lasix on 02/21 -will continue to diurese (2) Pneumonia: Code(s): J18.9 - Pneumonia, unspecified organism Status: Acute Assessment and Plan: As above (3) Adenocarcinoma of left lung, stage 4: Code(s): C34.92 - Malignant neoplasm of unspecified part of left bronchus or lung Status: Chronic Assessment and Plan: Follows with Dr. Acosta (oncologist) patient has been on Keytruda -Mets to bone and brain (4) Acute kidney injury superimposed on CKD: Code(s): N17.9 - Acute kidney failure, unspecified; N18.9 - Chronic kidney disease, unspecified Status: Acute Assessment and Plan: Patient presented with acute kidney injury on 02/16/2025 likely secondary to diarrhea. Creatinine on admission was 9.00 -adequately fluid-resuscitated -non-anion gap metabolic acidosis secondary to diarrhea -urine output has been adequate -nephrology following the patient -continue to monitor renal function, electrolytes and urine out -creatinine has normalized (5) Diarrhea: Qualifiers: Diarrhea type: presumed infectious Qualified Code(s): R19.7 - Diarrhea, unspecified Code(s): R19.7 - Diarrhea, unspecified Status: Acute Assessment and Plan: GI following the patient for diarrhea -02/16: C diff was negative -patient started on cholestyramine -diarrhea has improved -02/18: Stool culture for E coli, Shiga toxin is negative, Campylobacter is negative, salmonella and Shigella cultures are also negative (6) Electrolyte abnormality: Code(s): E87.8 - Other disorders of electrolyte and fluid balance, not elsewhere classified Status: Acute Assessment and Plan: Will will replace magnesium, phosphorus and calcium (7) Anemia: Code(s): D64.9 - Anemia, unspecified Status: Acute Assessment and Plan: Patient has dropped hemoglobin from 12.8 on 02/16/2025 to 7.8 this morning -increase PPI to q.12 hours -GI following the patient -history of iron deficiency anemia on ferrous sulfate, will continue -02/20: Patient dropped hemoglobin to 6.6 status post 1 unit of packed RBCs, lactic acid likely related to anemia. -hold heparin subQ. Continue SCDs -hemoglobin remained stable (8) Cardiomyopathy: Code(s): I42.9 - Cardiomyopathy, unspecified Status: Acute Assessment and Plan: Unknown if this is new onset cardiomyopathy -also mild pulmonary hypertension -appreciate cardiology evaluation and recommendation - 02/21; start low-dose losartan 25 mg per tube -will add metoprolol when more stable per Cardiology 02/19: Echocardiogram Summary 1. Left ventricular chamber dimension is moderately enlarged. 2. Left ventricular systolic function is severely globally reduced, estimated at 20-25. The small basal segments appear to be spared which could suggest Takotsubo cardiomyopathy. 3. The left ventricular diastolic function is grade I diastolic dysfunction. 4. E/e' 14 is mildly elevated. 5. There is trace aortic valve regurgitation. 6. There is mild mitral valve regurgitation. 7. There is mild tricuspid valve regurgitation. 8. Mild pulmonary hypertension, estimated pulmonary arterial systolic pressure is 43 mmHg. 9. Dilated inferior vena cava with >50% collapse upon inspiration consistent with elevated right atrial pressure, 10 mmHg. Plan DVT prophylaxis: Will hold heparin subQ due to anemia, place SCDs Stress ulcer prophylaxis: Protonix IV q.12 hours Nutrition: Tolerating tube feeds Code Status: Full code Subjective Date/time seen: 02/22/25 14:36 Interval history: Intubated and sedated Review of Systems Review of Systems: All systems reviewed & are unremarkable except as noted in HPI and below ROS unobtainable: Yes unobtainable due to endotracheal tube, unobtainable due to medical condition and unobtainable due to mental status Exam Narrative: General: Intubated and sedated, HEENT:? Pupils are equal and reactive, sclerae is clear Neck:? Supple Respiratory:? Coarse breath sounds right greater than left, adequate air entry, no wheezing Cardiac:? S1-S2 is normal, regular rate and rhythm Abdomen:? Soft, nontender, nondistended, hypoactive bowel sounds Extremities:? Bilateral upper extremity edema right greater than left, trace edema bilateral lower extremities Neuro:? Intubated and sedated, tries to open her eyes, does not follows simple commands this morning Skin:? No skin lesions noted Const: General: comfortable and no acute distress Other: , female, chronically ill-appearing HENMT: Face/Nose/Sinus: Normal nares present Mouth: Yes dry mucous membranes Eyes: General: appearance normal, both eyes and all related structures Sclera: sclerae normal Pupils: Equal, round and reactive pupils present EOM: EOMs intact bilaterally Resp: Effort & Inspection: normal respiratory effort Auscultation: clear to auscultation bilaterally Cardio: Rate: regular rate Rhythm: regular rhythm Other: S1-S2 present without murmur, rub, ectopy GI: Other: Abdomen soft, nondistended, nontender. Normoactive to hyperactive bowel sounds in all quadrants. Skin: General skin exam: normal color and no rashes or lesions noted Wounds: no wounds Neuro: Cranial nerves: Yes Equal, round and reactive pupils present Speech: normal speech Motor exam (neuro): 5/5 motor strength present throughout Sensory Exam: normal sensation Other: A/Ox self, time, place, and some situation. Extrem: General: normal to inspection Psych: Mental Status: mental status grossly normal Affect: normal affect Other: Fair to poor insight and judgment, pleasant Objective Data Vital Signs Vital Signs: Vital Signs - 24 hr 02/21/25 16:00 02/21/25 16:00 02/21/25 16:00 Temperature 99.2 F Pulse Rate 83 83 81 Respiratory Rate 18 18 17 Blood Pressure 125/75 Pulse Oximetry 99 Oxygen Delivery Fraction of Inspired Oxygen 02/21/25 16:00 02/21/25 16:00 02/21/25 16:00 Temperature Pulse Rate 79 Respiratory Rate Blood Pressure Pulse Oximetry 98 Oxygen Delivery Mechanical Ventilation Fraction of Inspired Oxygen 30 30 02/21/25 17:08 02/21/25 17:08 02/21/25 17:32 Temperature Pulse Rate 77 77 79 Respiratory Rate 15 15 Blood Pressure Pulse Oximetry 99 Oxygen Delivery Mechanical Ventilation Fraction of Inspired Oxygen 30 02/21/25 18:00 02/21/25 18:00 02/21/25 18:00 Temperature 99.3 F Pulse Rate 80 77 77 Respiratory Rate 17 15 15 Blood Pressure 131/77 Pulse Oximetry 99 Oxygen Delivery Fraction of Inspired Oxygen 02/21/25 18:00 02/21/25 20:00 02/21/25 20:00 Temperature 99.2 F Pulse Rate 77 79 Respiratory Rate 16 Blood Pressure 111/69 Pulse Oximetry 99 Oxygen Delivery Fraction of Inspired Oxygen 30 02/21/25 20:00 02/21/25 20:00 02/21/25 20:00 Temperature Pulse Rate 78 78 80 Respiratory Rate 16 16 Blood Pressure Pulse Oximetry Oxygen Delivery Fraction of Inspired Oxygen 02/21/25 20:00 02/21/25 20:24 02/21/25 20:24 Temperature Pulse Rate 77 79 Respiratory Rate 16 Blood Pressure Pulse Oximetry 98 100 Oxygen Delivery Mechanical Ventilation Mechanical Ventilation Fraction of Inspired Oxygen 30 30 02/21/25 20:31 02/21/25 21:33 02/21/25 22:00 Temperature Pulse Rate 86 92 80 Respiratory Rate 18 18 14 Blood Pressure Pulse Oximetry Oxygen Delivery Fraction of Inspired Oxygen 02/21/25 22:00 02/21/25 22:00 02/21/25 22:00 Temperature 99 F Pulse Rate 80 80 80 Respiratory Rate 14 14 Blood Pressure 102/64 Pulse Oximetry 98 Oxygen Delivery Fraction of Inspired Oxygen 02/21/25 22:19 02/21/25 22:19 02/21/25 23:20 Temperature Pulse Rate 77 77 72 Respiratory Rate 14 14 Blood Pressure Pulse Oximetry 99 Oxygen Delivery Mechanical Ventilation Fraction of Inspired Oxygen 30 02/22/25 00:00 02/22/25 00:00 02/22/25 00:00 Temperature 98.5 F Pulse Rate 78 78 Respiratory Rate 16 16 Blood Pressure 114/70 Pulse Oximetry 100 Oxygen Delivery Fraction of Inspired Oxygen 30 02/22/25 00:00 02/22/25 00:00 02/22/25 00:00 Temperature Pulse Rate 78 77 Respiratory Rate 16 Blood Pressure Pulse Oximetry 99 Oxygen Delivery Mechanical Ventilation Fraction of Inspired Oxygen 30 02/22/25 02:00 02/22/25 02:00 02/22/25 02:00 Temperature 98.1 F Pulse Rate 63 64 64 Respiratory Rate 14 14 Blood Pressure 99/70 L Pulse Oximetry 99 Oxygen Delivery Fraction of Inspired Oxygen 02/22/25 02:00 02/22/25 02:47 02/22/25 02:47 Temperature Pulse Rate 64 59 L 59 L Respiratory Rate 14 14 Blood Pressure Pulse Oximetry 99 Oxygen Delivery Mechanical Ventilation Fraction of Inspired Oxygen 30 02/22/25 03:30 02/22/25 03:55 02/22/25 03:56 Temperature Pulse Rate 70 71 71 Respiratory Rate 14 14 14 Blood Pressure Pulse Oximetry Oxygen Delivery Fraction of Inspired Oxygen 02/22/25 04:00 02/22/25 04:00 02/22/25 04:00 Temperature 97.4 F L Pulse Rate 71 71 Respiratory Rate 14 14 Blood Pressure 109/71 Pulse Oximetry 99 Oxygen Delivery Fraction of Inspired Oxygen 30 02/22/25 04:00 02/22/25 04:00 02/22/25 05:13 Temperature Pulse Rate 71 73 Respiratory Rate Blood Pressure Pulse Oximetry 100 97 Oxygen Delivery Mechanical Ventilation Mechanical Ventilation Fraction of Inspired Oxygen 30 30 02/22/25 06:00 02/22/25 06:00 02/22/25 06:00 Temperature 97.6 F Pulse Rate 71 71 71 Respiratory Rate 14 15 Blood Pressure 103/66 Pulse Oximetry 100 Oxygen Delivery Fraction of Inspired Oxygen 02/22/25 06:00 02/22/25 07:42 02/22/25 07:51 Temperature Pulse Rate 71 78 78 Respiratory Rate 15 15 Blood Pressure Pulse Oximetry 98 Oxygen Delivery Mechanical Ventilation Fraction of Inspired Oxygen 30 02/22/25 07:57 02/22/25 07:58 02/22/25 07:59 Temperature 98.3 F Pulse Rate 85 85 85 Respiratory Rate 20 15 21 H Blood Pressure 97/64 L Pulse Oximetry 99 Oxygen Delivery Fraction of Inspired Oxygen 02/22/25 08:00 02/22/25 08:00 02/22/25 09:17 Temperature Pulse Rate 85 91 Respiratory Rate 21 H 15 Blood Pressure Pulse Oximetry 99 Oxygen Delivery Mechanical Ventilation Fraction of Inspired Oxygen 30 30 02/22/25 10:00 02/22/25 10:00 02/22/25 10:29 Temperature 98.6 F Pulse Rate 90 95 74 Respiratory Rate 18 15 Blood Pressure 104/61 Pulse Oximetry 94 98 Oxygen Delivery Mechanical Ventilation Fraction of Inspired Oxygen 30 02/22/25 10:34 02/22/25 11:32 02/22/25 12:00 Temperature Pulse Rate 94 96 98 Respiratory Rate 15 15 15 Blood Pressure Pulse Oximetry Oxygen Delivery Fraction of Inspired Oxygen 02/22/25 12:00 02/22/25 12:00 02/22/25 12:00 Temperature 99.1 F Pulse Rate 97 112 H Respiratory Rate 20 23 H Blood Pressure 124/73 Pulse Oximetry 95 95 Oxygen Delivery Mechanical Ventilation Fraction of Inspired Oxygen 30 02/22/25 12:39 02/22/25 14:00 Temperature 100.4 F H Pulse Rate 112 H 91 Respiratory Rate 23 H 22 H Blood Pressure 145/83 H Pulse Oximetry 95 Oxygen Delivery Fraction of Inspired Oxygen Intake/Output Intake/Output: Intake & Output 02/19/25 02/20/25 02/21/25 02/22/25 23:59 23:59 23:59 23:59 Intake Total 4155.0 2852.9 2657.3 536.2 Output Total 1850 1200 4975 3950 Balance 2305.0 1652.9 -2317.7 -3413.8 Meds/Results Medications: Active Medications Generic Name Dose Route Start Last Admin Trade Name Freq PRN Reason Stop Dose Admin Acetaminophen 650 mg 02/16/25 14:42 Acetaminophen 325 Mg Tablet PO Q4H PRN Mild Pain (1-3) or Fever Hydrocodone Bitart/Acetaminophen 1 tab 02/16/25 22:21 Hydrocodone/Acetaminophen (*Crx) 5-325 Mg Tablet PO Q12H PRN Pain Rated 4-6 Albuterol/Ipratropium 3 ml 02/19/25 08:00 02/22/25 07:37 Ipratropium 0.5 Mg/Albuterol Sulfate 2.5 Mg Ampul.Neb 3 Ml INHALATION 3 ml Q6HRT LISSETTE Administration Calcium Carbonate 500 mg 02/17/25 09:00 02/18/25 18:52 Calcium Carbonate (Oscal) 500 Mg Tablet PO Not Given BID LISSETTE Cholestyramine Resin 4 gm 02/17/25 18:00 02/22/25 07:57 Cholestyramine Light 4 Gm Powd.Pack PO 4 gm BID@1000,1800 LISSETTE Administration Dexamethasone 4 mg 02/20/25 09:00 02/22/25 07:56 Dexamethasone 4 Mg Tablet PO 4 mg DAILY LISSETTE Administration Ferrous Sulfate 325 mg 02/20/25 09:00 02/22/25 07:56 Ferrous Sulfate [address] BY MOUTH 325 mg BID LISSETTE Administration Folic Acid 1 mg 02/17/25 09:00 02/22/25 07:56 Folic Acid 1 Mg Tablet PO 1 mg DAILY LISSETTE Administration Heparin Sodium (Beef Lung) 50 units 02/19/25 09:00 02/22/25 07:59 Heparin Flush 50 Units/5 Ml Syringe IV PUSH 50 units QAM LISSETTE Administration Heparin Sodium (Beef Lung) 50 units 02/18/25 19:00 Heparin Flush 50 Units/5 Ml Syringe IV PUSH PRN PRN after intermittent infusion Heparin Sodium (Beef Lung) 50 units 02/18/25 19:00 Heparin Flush 50 Units/5 Ml Syringe IV PUSH PRN PRN after blood draws Heparin Sodium (Porcine) 500 units 02/18/25 19:00 Heparin Sodium Lock Flush 500 Units/5 Ml Syringe IV PUSH PRN PRN see comments below Propofol 100 mls @ 0 mls/hr 02/18/25 18:45 02/22/25 11:32 Diprivan IV CONT 0 mcg/kg/min .Q0M LISSETTE 0 mls/hr Titration Protocol 0 MCG/KG/MIN Midazolam HCl 100 mg in 100 mls @ 0 mls/hr 02/19/25 13:35 02/22/25 12:00 Versed 100 Mg/Ns 100 Ml IV CONT 0 mg/hr .Q0M LISSETTE 0 mls/hr Titration Protocol Meropenem 2 gm/ Sodium 140 mls @ 280 mls/hr 02/22/25 15:00 Chloride IVPB Q8H LISSETTE Dexmedetomidine HCl 400 mcg in 100 mls @ 3.505 mls/hr 02/22/25 12:20 02/22/25 12:39 Precedex 400 Mcg/100 Ml IV CONT 0.5 mcg/kg/hr .[id number] LISSETTE 8.76 mls/hr Administration Protocol 0.2 MCG/KG/HR Loperamide HCl 2 mg 02/17/25 00:04 02/18/25 15:38 Loperamide Hcl 2 Mg Capsule PO 2 mg TID PRN Administration Diarrhea Losartan Potassium 25 mg 02/21/25 10:00 02/22/25 07:56 Losartan Potassium 25 Mg Tablet PO 25 mg DAILY LISSETTE Administration Melatonin 10 mg 02/18/25 21:00 Melatonin 5 Mg Tablet PO HS LISSETTE Multi-Ingred Cream/Lotion/Oil/Oint 1 applic 02/18/25 21:00 02/22/25 07:59 Mineral Oil/White Petrolatum Ointment EACH EYE 1 applic Q12HR LISSETTE Administration Nitroglycerin 0.4 mg 02/18/25 16:44 02/18/25 17:15 Nitroglycerin Sl 0.4 Mg Tablet SUBLINGUAL 0.4 mg Q5MIN PRN Administration Chest Pain Ondansetron HCl 4 mg 02/16/25 14:42 Ondansetron Inj 4 Mg/2 Ml Vial IV PUSH Q4H PRN Nausea Pantoprazole Sodium 40 mg 02/19/25 21:00 02/22/25 07:56 Pantoprazole Sodium Iv 40 Mg Vial IV PUSH 40 mg Q12HR LISSETTE Administration Sodium Chloride 10 ml 02/18/25 22:00 02/22/25 06:14 Central Line Flush IV PUSH 10 ml Q8HR LISSETTE Administration Sodium Chloride 10 ml 02/19/25 14:00 02/22/25 06:14 Central Line Flush IV PUSH 10 ml Q8HR LISSETTE Administration Sodium Chloride 10 ml 02/19/25 10:47 Central Line Flush IV PUSH PRN PRN with TPN bag changes Sodium Chloride 20 ml 02/19/25 10:47 Central Line Flush IV PUSH PRN PRN after blood draws Radiology Results: ITS Impressions Renal Ultrasound 02/17/25 08:54 IMPRESSION: 1. Normal kidneys without hydronephrosis. Abdomen X-Ray 02/18/25 19:29 IMPRESSION: Orogastric tube in good position and ready for immediate use. Head CT 02/19/25 09:07 IMPRESSION: No acute intracranial findings. Chest/Abdomen/Pelvis CT 02/19/25 09:17 IMPRESSION: CHEST: 1. Bilateral moderate pleural effusion with adjacent atelectasis versus pneumonia. 2. Trace of pericardial effusion. 3. Sclerotic changes in the superior endplate of T1. MRI evaluation to exclude acute fracture. ABDOMEN/PELVIS: 1. No evidence of appendicitis, diverticulitis or intestinal obstruction. No kidney stones. Venous Doppler Study 02/20/25 10:00 IMPRESSION: 1. Patent bilateral upper extremity veins. No evidence of venous thrombosis. Chest X-Ray 02/22/25 05:55 Impression: Bibasilar airspace disease, left worse than right. Correlate for pulmonary edema/atelectasis versus pneumonia. Probable small left pleural effusion. Support tubes, as above. Labs Labs: Laboratory Results - last 24 hr 02/21/25 02/21/25 02/22/25 18:09 20:17 00:16 WBC RBC Hgb Hct MCV MCH MCHC RDW Plt Count MPV Immature Gran % (Auto) Neut % (Auto) Lymph % (Auto) Campbell % (Auto) Eos % (Auto) Baso % (Auto) Lymph # (Auto) Campbell # (Auto) Eos # (Auto) Baso # (Auto) Abs Immat Gran (auto) Absolute Neuts (auto) Absolute Nucleated RBC Nucleated RBC % Puncture Site ABG pH ABG pCO2 ABG pO2 ABG PO2/FiO2 Ratio ABG HCO3 ABG O2 Saturation ABG O2 Content ABG Base Excess A-a Gradient Oxyhemoglobin Carboxyhemoglobin Methemoglobin Reduced Hemoglobin Total Hemoglobin O2 Delivery Device O2 Liters/Min Minute Volume Vent Rate Vent Mode FiO2 Tidal Volume PEEP Peak Inspir Pressure Pressure Support Sodium Potassium Chloride Carbon Dioxide Anion Gap BUN Creatinine Estim Creat Clear Calc Estimated GFR Glucose POC Capillary Glucose 148 H 123 H Calcium Phosphorus Magnesium Total Bilirubin AST ALT Alkaline Phosphatase Total Protein Albumin Random Vancomycin 12.5 02/22/25 02/22/25 02/22/25 04:43 05:02 11:07 WBC 20.6 H RBC 2.95 L Hgb 9.0 L Hct 28.4 L MCV 96.3 MCH 30.5 MCHC 31.7 L RDW 16.8 H Plt Count 208 MPV 10.1 Immature Gran % (Auto) 8.0 H Neut % (Auto) 76.3 H Lymph % (Auto) 8.4 L Campbell % (Auto) 6.6 Eos % (Auto) 0.2 Baso % (Auto) 0.5 Lymph # (Auto) 1.72 Campbell # (Auto) 1.4 H Eos # (Auto) 0.0 Baso # (Auto) 0.1 Abs Immat Gran (auto) 1.64 H Absolute Neuts (auto) 15.7 H Absolute Nucleated RBC 0.020 H Nucleated RBC % 0.1 Puncture Site Left brachial ABG pH 7.498 H ABG pCO2 39.9 ABG pO2 89.5 ABG PO2/FiO2 Ratio 2.98 ABG HCO3 30.3 H ABG O2 Saturation 97.4 ABG O2 Content 13.1 L ABG Base Excess 6.6 A-a Gradient 77.5 Oxyhemoglobin 96.7 Carboxyhemoglobin 0.2 Methemoglobin 0.3 Reduced Hemoglobin 2.8 Total Hemoglobin 9.5 L O2 Delivery Device Ventilator O2 Liters/Min Not Reportable Minute Volume Not Reportable Vent Rate 14 Vent Mode Cmv FiO2 30 Tidal Volume 350 PEEP 5 Peak Inspir Pressure Not Reportable Pressure Support Not Reportable Sodium 140 Potassium 4.2 Chloride 103 Carbon Dioxide 29 Anion Gap 8 BUN 14 Creatinine 0.82 Estim Creat Clear Calc 53 Estimated GFR > 60 Glucose 102 POC Capillary Glucose 122 H Calcium 7.6 L Phosphorus 2.4 L Magnesium 1.7 Total Bilirubin < 0.1 L AST 25 ALT 13 Alkaline Phosphatase 94 Total Protein 5.6 L Albumin 3.2 L Random Vancomycin 02/22/25 14:05 WBC RBC Hgb Hct MCV MCH MCHC RDW Plt Count MPV Immature Gran % (Auto) Neut % (Auto) Lymph % (Auto) Campbell % (Auto) Eos % (Auto) Baso % (Auto) Lymph # (Auto) Campbell # (Auto) Eos # (Auto) Baso # (Auto) Abs Immat Gran (auto) Absolute Neuts (auto) Absolute Nucleated RBC Nucleated RBC % Puncture Site Left radial ABG pH 7.590 H* ABG pCO2 32.4 L ABG pO2 80.7 ABG PO2/FiO2 Ratio 2.69 ABG HCO3 30.4 H ABG O2 Saturation 97.4 ABG O2 Content 14.7 L ABG Base Excess 8.5 A-a Gradient 95.1 Oxyhemoglobin 96.1 Carboxyhemoglobin Methemoglobin Reduced Hemoglobin Total Hemoglobin 10.8 L O2 Delivery Device Ventilator O2 Liters/Min Not Reportable Minute Volume Not Reportable Vent Rate Not Reportable Vent Mode Spontaneous FiO2 30 Tidal Volume Not Reportable PEEP 5 Peak Inspir Pressure Not Reportable Pressure Support 8 Sodium Potassium Chloride Carbon Dioxide Anion Gap BUN Creatinine Estim Creat Clear Calc Estimated GFR Glucose POC Capillary Glucose Calcium Phosphorus Magnesium Total Bilirubin AST ALT Alkaline Phosphatase Total Protein Albumin Random Vancomycin Quality VTE Prophylaxis VTE prophylaxis: pharmacologic ordered
--- NOTE | 2025-02-22 15:59 | PC.NURSE ---
spoke with POA and Patient. Wishes to proceed with DNR and hospice consult. [employer] notified and Desirae DOYLE witnessed conversation
[2025-02-23] VITALS (16 sets, daily range): BP systolic 110–145; BP diastolic 70–86; PULSE 83–101; RESP 16–23; TEMP 37.4–37.8; O2SAT 91–98
[2025-02-23] MEDS: DEXTROSE 50% 25 GM/50 ML SYRINGE IV PUSH (00:06)
[2025-02-23] MEDS: CENTRAL LINE FLUSH 10 ML IV PUSH ×2 (04:54→04:55)
[2025-02-23 05:04] LABS: Hematocrit 32.0 % (37.0-47.0); Hemoglobin 9.8 g/dL (12.0-15.0); Immature Granulocyte Percent A 6.2 % (0-0.5); Lymphocytes Absolute Auto 2.42 K/mm3 (0.9-3.2); Mean Corpuscular HGB Conc 30.6 g/dl (32-36); Mean Corpuscular Hemoglobin 29.7 pg (26-34); Mean Corpuscular Volume 97.0 fl (80-100); Nucleated Red Blood Cells Absolute Auto 0.000 K/mm3 (0.0-0.012); Nucleated Red Blood Cells Perc 0.0 % (0.0-0.2); Platelet Count Result 248 k/mm3 (150-375); Red Blood Count 3.30 M/mm3 (4.2-5.4); White Blood Count 19.3 K/mm3 (4.5-10.0)
[2025-02-23 05:12] LABS: Alveolar/Arterial O2 Gradient 88.4 mmHg; Carboxyhemoglobin 0.2 % THb (0-2.0); Fractional Inspired Oxygen 28 %; HCO3 ABG 29.2 mEq/l (22.0-26.0); Methemoglobin ABG 0.1 %THb (0-1.5); Oxygen Content ABG 14.6 %vol (16.0-22.0); Oxygen Saturation ABG 95.7 % (95.0-100.0); PCO2 ABG 35.5 mmHg (35.0-45.0); PO2 ABG 69.4 mmHg (80.0-100.0); PO2 FiO2 Ratio Arterial Blood 2.48 %; Reduced Hemoglobin 5.5 %THb (0-5.0)
[2025-02-23 05:17] LABS: Alanine Aminotransferase 19 U/L (6-35); Albumin Level 3.4 g/dL (3.5-5.1); Alkaline Phosphatase 107 U/L (38-126); Anion Gap 4 mmol/L (4-12); Aspartate Amino Transferase 39 U/L (14-36); Bilirubin,Total 0.3 mg/dL (0.2-1.3); Blood Urea Nitrogen 15 mg/dL (7-17); Calcium 8.1 mg/dL (8.4-10.2); Carbon Dioxide 32 mmol/L (22-30); Chloride 104 mmol/L (98-107); Estimated CRCL calculation 43 ml/min; Estimated Glomerular Filt Rate 54; Glucose 75 mg/dL (65-110); Magnesium 1.7 mg/dL (1.6-2.3); Potassium 4.1 mmol/L (3.4-5.0); Sodium 140 mmol/L (137-145); Total Protein 6.0 g/dL (6.3-8.2)
[2025-02-23 05:24] LABS: Liters per Minute 2.0 LPM; Modified Allen's Test Pass; Site Drawn LEFT BRACHIAL
[2025-02-23] MEDS: IPRATROPIUM 0.5 MG/ALBUTEROL SULFATE 2.5 MG AMPUL.NEB 3 ML INHALATION ×3 (05:31→13:35)
--- NOTE | 2025-02-23 09:20 | P.PNINT_ITS ---
Progress Note: A&P Assessment and Plan (1) Hypoxic respiratory failure: Code(s): J96.91 - Respiratory failure, unspecified with hypoxia Status: Acute Assessment and Plan: Acute hypoxic respiratory failure: Likely related to pneumonia versus moderate pleural effusions bilaterally -hypoxic respiratory failure on ABG down 02/18, as patient was tachypneic, short of breath, decreased O2 sats. PH was 7.13/23/58/7.8/82% -02/18: Intubated in the ICU by ER physician -patient was diuresed and extubated on 02/22 -continue bronchodilators, -added DuoNebs -continue meropenem -02/19: Blood cultures , preliminary report shows no growth x2 -02/18: Sputum cultures grew yeast which likely colonization Hold further diuretics due to slight increase in creatinine (2) Pneumonia: Code(s): J18.9 - Pneumonia, unspecified organism Status: Acute Assessment and Plan: As above (3) Adenocarcinoma of left lung, stage 4: Code(s): C34.92 - Malignant neoplasm of unspecified part of left bronchus or lung Status: Chronic Assessment and Plan: Follows with Dr. Acosta (oncologist) patient has been on Keytruda -Mets to bone and brain (4) Acute kidney injury superimposed on CKD: Code(s): N17.9 - Acute kidney failure, unspecified; N18.9 - Chronic kidney disease, unspe cified Status: Acute Assessment and Plan: Patient presented with acute kidney injury on 02/16/2025 likely secondary to diarrhea. Creatinine on admission was 9.00 -adequately fluid-resuscitated -non-anion gap metabolic acidosis secondary to diarrhea -urine output has been adequate -nephrology following the patient -continue to monitor renal function, electrolytes and urine out -creatinine slightly increased today. Will hold diuretics today. (5) Diarrhea: Qualifiers: Diarrhea type: presumed infectious Qualified Code(s): R19.7 - Diarrhea, unspecified Code(s): R19.7 - Diarrhea, unspecified Status: Acute Assessment and Plan: GI following the patient for diarrhea -02/16: C diff was negative -patient cholestyramine -diarrhea has improved -02/18: Stool culture for E coli, Shiga toxin is negative, Campylobacter is negative, salmonella and Shigella cultures are also negative (6) Electrolyte abnormality: Code(s): E87.8 - Other disorders of electrolyte and fluid balance, not elsewhere classified Status: Acute Assessment and Plan: Will will replace magnesium, phosphorus and calcium (7) Anemia: Code(s): D64.9 - Anemia, unspecified Status: Acute Assessment and Plan: Patient has dropped hemoglobin from 12.8 on 02/16/2025 to 7.8 this morning -increase PPI to q.12 hours -GI following the patient -history of iron deficiency anemia on ferrous sulfate, will continue -02/20: Patient dropped hemoglobin to 6.6 status post 1 unit of packed RBCs, lactic acid likely related to anemia. -hold heparin subQ. Continue SCDs -hemoglobin remained stable (8) Cardiomyopathy: Code(s): I42.9 - Cardiomyopathy, unspecified Status: Acute Assessment and Plan: Unknown if this is new onset cardiomyopathy -also mild pulmonary hypertension -appreciate cardiology evaluation and recommendation - 02/21; continuee losartan 25 mg per tube -will add low-dose metoprolol 02/19: Echocardiogram Summary 1. Left ventricular chamber dimension is moderately enlarged. 2. Left ventricular systolic function is severely globally reduced, estimated at 20-25. The small basal segments appear to be spared which could suggest Takotsubo cardiomyopathy. 3. The left ventricular diastolic function is grade I diastolic dysfunction. 4. E/e' 14 is mildly elevated. 5. There is trace aortic valve regurgitation. 6. There is mild mitral valve regurgitation. 7. There is mild tricuspid valve regurgitation. 8. Mild pulmonary hypertension, estimated pulmonary arterial systolic pressure is 43 mmHg. 9. Dilated inferior vena cava with >50% collapse upon inspiration consistent with elevated right atrial pressure, 10 mmHg. Plan DVT prophylaxis: Will hold heparin subQ due to anemia, currently on SCDs Stress ulcer prophylaxis: Protonix IV q.12 hours Nutrition: Diet Code Status: Patient was supposed to go on hospice on 02/19/2025 but DNR was rescinded on 02/18/2025 prior to intubation. Patient is now extubated. Patient's 2 granddaughters who live with her have requested to meet with hospice services today. I had detailed discussion with both granddaughters and patient. Patient is eager to be discharged and is ready to go home on hospice but I am not sure if she fully understand the hospice care. She said that she would like to go home and in peace with her grandkids and dog but when I asked her about code status she wanted to be full code and received CPR in the event of cardiac arrest. She does understand that she has a metastatic cancer which is incurable along with other medical problems. I will discuss with career education teacher and also patient will be visited by hospice service today for further discussions before making further decisions regarding discharge planning and goals of care. Patient is DNI at this time and does not want to go back on the ventilator Incentive spirometry Transfer out of ICU today Subjective Date/time seen: 02/23/25 Patient was extubated yesterday after a successful weaning trial. Patient has done well and currently on 2 L nasal cannula. She denies any complaints she states she is ready to go home and would like to be discharged. She states she does not need anything and wants to go home and see her dog. She answers no to all review of system questions and denies fever, chest pain, shortness of breath, cough, nausea vomiting, abdominal pain,, diarrhea, headache or constipation. She is currently off all infusions. Good urine output in response to diuretics. Afebrile Interval history: Intubated and sedated Review of Systems Review of Systems: All systems reviewed & are unremarkable except as noted in HPI and below (HPI) Exam Narrative: General: Alert awake and in no distress HEENT:? Pupils are equal and reactive, sclerae is clear Neck:? Supple Respiratory:? Coarse breath sounds right greater than left, adequate air entry, no wheezing Cardiac:? S1-S2 is normal, regular rate and rhythm Abdomen:? Soft, nontender, nondistended, hypoactive bowel sounds Extremities:? Bilateral upper extremity edema right greater than left, trace edema bilateral lower extremities Neuro:? AO x3, follows commands with all extremities Skin:? No skin lesions noted Psych:? Normal speech and affect Objective Data Vital Signs Vital Signs: Vital Signs - 24 hr 02/22/25 10:00 02/22/25 10:00 02/22/25 10:00 Temperature 37.0 C Pulse Rate 90 95 94 Respiratory Rate 18 15 Blood Pressure 104/61 Pulse Oximetry 94 Oxygen Delivery Oxygen Flow Rate Fraction of Inspired Oxygen 02/22/25 10:29 02/22/25 10:34 02/22/25 11:32 Temperature Pulse Rate 74 94 96 Respiratory Rate 15 15 Blood Pressure Pulse Oximetry 98 Oxygen Delivery Mechanical Ventilation Oxygen Flow Rate Fraction of Inspired Oxygen 02/22/25 12:00 02/22/25 12:00 02/22/25 12:00 Temperature 37.3 C Pulse Rate 98 97 Respiratory Rate 15 20 Blood Pressure 124/73 Pulse Oximetry 95 Oxygen Delivery Oxygen Flow Rate Fraction of Inspired Oxygen 30 02/22/25 12:00 02/22/25 12:00 02/22/25 12:39 Temperature Pulse Rate 112 H 95 112 H Respiratory Rate 23 H 23 H Blood Pressure Pulse Oximetry 95 Oxygen Delivery Mechanical Ventilation Oxygen Flow Rate Fraction of Inspired Oxygen 30 02/22/25 13:09 02/22/25 13:39 02/22/25 14:00 Temperature 38.0 C H Pulse Rate 111 H 102 H 91 Respiratory Rate 24 H 25 H 22 H Blood Pressure 145/83 H Pulse Oximetry 95 Oxygen Delivery Oxygen Flow Rate Fraction of Inspired Oxygen 02/22/25 14:00 02/22/25 14:08 02/22/25 14:23 Temperature Pulse Rate 105 H 88 98 Respiratory Rate 11 L 22 H Blood Pressure Pulse Oximetry Oxygen Delivery Oxygen Flow Rate Fraction of Inspired Oxygen 02/22/25 14:38 02/22/25 14:39 02/22/25 14:45 Temperature Pulse Rate 87 78 86 Respiratory Rate 15 20 18 Blood Pressure Pulse Oximetry 96 Oxygen Delivery Nasal Cannula Oxygen Flow Rate 2 Fraction of Inspired Oxygen 02/22/25 16:00 02/22/25 16:00 02/22/25 16:00 Temperature 37.8 C H Pulse Rate 99 112 H Respiratory Rate 18 23 H Blood Pressure 128/78 Pulse Oximetry 96 95 Oxygen Delivery Nasal Cannula Oxygen Flow Rate 2 Fraction of Inspired Oxygen 21 30 02/22/25 16:00 02/22/25 18:00 02/22/25 18:00 Temperature 37.7 C H Pulse Rate 95 89 89 Respiratory Rate 20 Blood Pressure 131/78 Pulse Oximetry 96 Oxygen Delivery Oxygen Flow Rate Fraction of Inspired Oxygen 02/22/25 19:57 02/22/25 19:59 02/22/25 20:00 Temperature Pulse Rate 86 86 Respiratory Rate 20 20 Blood Pressure Pulse Oximetry 100 97 Oxygen Delivery Nasal Cannula Nasal Cannula Oxygen Flow Rate 2 2 Fraction of Inspired Oxygen 28 02/22/25 20:00 02/22/25 20:00 02/22/25 20:07 Temperature 37.5 C Pulse Rate 86 85 86 Respiratory Rate 21 H 20 Blood Pressure 130/75 Pulse Oximetry 100 Oxygen Delivery Oxygen Flow Rate Fraction of Inspired Oxygen 02/22/25 22:00 02/22/25 22:00 02/23/25 00:00 Temperature 37.4 C 37.4 C Pulse Rate 88 88 85 Respiratory Rate 19 16 Blood Pressure 116/59 L 126/75 Pulse Oximetry 98 97 Oxygen Delivery Oxygen Flow Rate Fraction of Inspired Oxygen 02/23/25 00:00 02/23/25 00:00 02/23/25 01:17 Temperature Pulse Rate 89 84 Respiratory Rate 20 Blood Pressure Pulse Oximetry 98 97 Oxygen Delivery Nasal Cannula Nasal Cannula Oxygen Flow Rate 2 2 Fraction of Inspired Oxygen 28 02/23/25 02:00 02/23/25 02:00 02/23/25 04:00 Temperature Pulse Rate 83 83 Respiratory Rate 21 H Blood Pressure 131/76 Pulse Oximetry 96 96 Oxygen Delivery Nasal Cannula Oxygen Flow Rate 2 Fraction of Inspired Oxygen 02/23/25 04:00 02/23/25 04:00 02/23/25 06:00 Temperature 37.4 C Pulse Rate 84 85 88 Respiratory Rate 21 H Blood Pressure 143/86 H Pulse Oximetry 96 Oxygen Delivery Oxygen Flow Rate Fraction of Inspired Oxygen 02/23/25 06:00 02/23/25 08:00 02/23/25 08:00 Temperature 37.4 C Pulse Rate 88 96 Respiratory Rate 18 21 H Blood Pressure 145/82 H 139/84 Pulse Oximetry 97 98 96 Oxygen Delivery Nasal Cannula Oxygen Flow Rate 2 Fraction of Inspired Oxygen 02/23/25 08:10 02/23/25 08:14 02/23/25 08:20 Temperature Pulse Rate 88 87 93 Respiratory Rate 21 H 19 20 Blood Pressure Pulse Oximetry 95 Oxygen Delivery Nasal Cannula Oxygen Flow Rate 2 Fraction of Inspired Oxygen 28 Intake/Output Intake/Output: Intake & Output 02/20/25 02/21/25 02/22/25 02/23/25 23:59 23:59 23:59 23:59 Intake Total 2852.9 2657.3 682.3 140 Output Total 1200 0985 4060 1250 Balance 1652.9 -2317.7 -3917.7 -1110 Meds/Results Medications: Active Medications Generic Name Dose Route Start Last Admin Trade Name Freq PRN Reason Stop Dose Admin Acetaminophen 650 mg 02/16/25 14:42 Acetaminophen 325 Mg Tablet PO Q4H PRN Mild Pain (1-3) or Fever Hydrocodone Bitart/Acetaminophen 1 tab 02/16/25 22:21 Hydrocodone/Acetaminophen (*Crx) 5-325 Mg Tablet PO Q12H PRN Pain Rated 4-6 Albuterol/Ipratropium 3 ml 02/19/25 08:00 02/23/25 08:10 Ipratropium 0.5 Mg/Albuterol Sulfate 2.5 Mg Ampul.Neb 3 Ml INHALATION 3 ml Q6HRT [place] Administration Calcium Carbonate 500 mg 02/17/25 09:00 02/18/25 18:52 Calcium Carbonate (Oscal) 500 Mg Tablet PO Not Given BID [facility] Dexamethasone 4 mg 02/20/25 09:00 02/22/25 07:56 Dexamethasone 4 Mg Tablet PO 4 mg DAILY [place] Administration Dextrose 12.5 gm 02/23/25 00:01 Dextrose 50% 25 Gm/50 Ml Syringe IV PUSH PRN PRN Hypoglycemia Protocol Heparin Sodium (Beef Lung) 50 units 02/19/25 09:00 02/22/25 07:59 Heparin Flush 50 Units/5 Ml Syringe IV PUSH 50 units QAM [place] Administration Heparin Sodium (Beef Lung) 50 units 02/18/25 19:00 Heparin Flush 50 Units/5 Ml Syringe IV PUSH PRN PRN after intermittent infusion Heparin Sodium (Beef Lung) 50 units 02/18/25 19:00 Heparin Flush 50 Units/5 Ml Syringe IV PUSH PRN PRN after blood draws Heparin Sodium (Porcine) 500 units 02/18/25 19:00 Heparin Sodium Lock Flush 500 Units/5 Ml Syringe IV PUSH PRN PRN see comments below Meropenem 2 gm/ Sodium 140 mls @ 280 mls/hr 02/23/25 09:00 Chloride IVPB Q12HR [facility] Loperamide HCl 2 mg 02/17/25 00:04 02/18/25 15:38 Loperamide Hcl 2 Mg Capsule PO 2 mg TID PRN Administration Diarrhea Losartan Potassium 25 mg 02/21/25 10:00 02/22/25 07:56 Losartan Potassium 25 Mg Tablet PO 25 mg DAILY [facility] Administration Melatonin 10 mg 02/18/25 21:00 Melatonin 5 Mg Tablet PO HS [facility] Nitroglycerin 0.4 mg 02/18/25 16:44 02/18/25 17:15 Nitroglycerin Sl 0.4 Mg Tablet SUBLINGUAL 0.4 mg Q5MIN PRN Administration Chest Pain Ondansetron HCl 4 mg 02/16/25 14:42 Ondansetron Inj 4 Mg/2 Ml Vial IV PUSH Q4H PRN Nausea Pantoprazole Sodium 40 mg 02/19/25 21:00 02/22/25 20:30 Pantoprazole Sodium Iv 40 Mg Vial IV PUSH 40 mg Q12HR [place] Administration Sodium Chloride 10 ml 02/18/25 22:00 02/23/25 04:54 Central Line Flush IV PUSH 10 ml Q8HR [place] Administration Sodium Chloride 10 ml 02/19/25 14:00 02/23/25 04:55 Central Line Flush IV PUSH 10 ml Q8HR [place] Administration Sodium Chloride 10 ml 02/19/25 10:47 02/22/25 20:30 Central Line Flush IV PUSH 10 ml PRN PRN Administration with TPN bag changes Sodium Chloride 20 ml 02/19/25 10:47 Central Line Flush IV PUSH PRN PRN after blood draws Radiology Results: ITS Impressions Renal Ultrasound 02/17/25 08:54 IMPRESSION: 1. Normal kidneys without hydronephrosis. Abdomen X-Ray 02/18/25 19:29 IMPRESSION: Orogastric tube in good position and ready for immediate use. Head CT 02/19/25 09:07 IMPRESSION: No acute intracranial findings. Chest/Abdomen/Pelvis CT 02/19/25 09:17 IMPRESSION: CHEST: 1. Bilateral moderate pleural effusion with adjacent atelectasis versus pneumonia. 2. Trace of pericardial effusion. 3. Sclerotic changes in the superior endplate of T1. MRI evaluation to exclude acute fracture. ABDOMEN/PELVIS: 1. No evidence of appendicitis, diverticulitis or intestinal obstruction. No kidney stones. Venous Doppler Study 02/20/25 10:00 IMPRESSION: 1. Patent bilateral upper extremity veins. No evidence of venous thrombosis. Chest X-Ray 02/23/25 06:32 Impression: Left basilar atelectasis versus pneumonia. Correlate clinically. Support tubes, as above. Labs Labs: Laboratory Results - last 24 hr 02/22/25 02/22/25 02/22/25 11:07 14:05 18:07 WBC RBC Hgb Hct MCV MCH MCHC RDW Plt Count MPV Immature Gran % (Auto) Neut % (Auto) Lymph % (Auto) [place] % (Auto) Eos % (Auto) Baso % (Auto) Lymph # (Auto) [place] # (Auto) Eos # (Auto) Baso # (Auto) Abs Immat Gran (auto) Absolute Neuts (auto) Absolute Nucleated RBC Nucleated RBC % Puncture Site Left radial ABG pH 7.590 H* ABG pCO2 32.4 L ABG pO2 80.7 ABG PO2/FiO2 Ratio 2.69 ABG HCO3 30.4 H ABG O2 Saturation 97.4 ABG O2 Content 14.7 L ABG Base Excess 8.5 A-a Gradient 95.1 Oxyhemoglobin 96.1 Carboxyhemoglobin Methemoglobin Reduced Hemoglobin Total Hemoglobin 10.8 L O2 Delivery Device Ventilator O2 Liters/Min Not Reportable Minute Volume Not Reportable Vent Rate Not Reportable Vent Mode Spontaneous FiO2 30 Tidal Volume Not Reportable PEEP 5 Peak Inspir Pressure Not Reportable Pressure Support 8 Sodium Potassium Chloride Carbon Dioxide Anion Gap BUN Creatinine Estim Creat Clear Calc Estimated GFR Glucose POC Capillary Glucose 122 H 114 H Calcium Phosphorus Magnesium Total Bilirubin AST ALT Alkaline Phosphatase Total Protein Albumin 02/22/25 02/23/25 02/23/25 23:28 04:53 05:20 WBC 19.3 H RBC 3.30 L Hgb 9.8 L Hct 32.0 L MCV 97.0 MCH 29.7 MCHC 30.6 L RDW 16.6 H Plt Count 248 MPV 9.5 Immature Gran % (Auto) 6.2 H Neut % (Auto) 72.4 Lymph % (Auto) 12.6 L [place] % (Auto) 7.8 Eos % (Auto) 0.7 Baso % (Auto) 0.3 Lymph # (Auto) 2.42 [place] # (Auto) 1.5 H Eos # (Auto) 0.1 Baso # (Auto) 0.1 Abs Immat Gran (auto) 1.19 H Absolute Neuts (auto) 14.0 H Absolute Nucleated RBC 0.000 Nucleated RBC % 0.0 Puncture Site Left brachial ABG pH 7.533 H* ABG pCO2 35.5 ABG pO2 69.4 L ABG PO2/FiO2 Ratio 2.48 ABG HCO3 29.2 H ABG O2 Saturation 95.7 ABG O2 Content 14.6 L ABG Base Excess 6.4 A-a Gradient 88.4 Oxyhemoglobin 94.2 Carboxyhemoglobin 0.2 Methemoglobin 0.1 Reduced Hemoglobin 5.5 H Total Hemoglobin 11.0 L O2 Delivery Device Nasal cannula O2 Liters/Min 2.0 Minute Volume Vent Rate Vent Mode FiO2 28 Tidal Volume PEEP Peak Inspir Pressure Pressure Support Sodium 140 Potassium 4.1 Chloride 104 Carbon Dioxide 32 H Anion Gap 4 BUN 15 Creatinine 1.02 H Estim Creat Clear Calc 43 Estimated GFR 54 L Glucose 75 POC Capillary Glucose 76 Calcium 8.1 L Phosphorus 2.7 Magnesium 1.7 Total Bilirubin 0.3 AST 39 H ALT 19 Alkaline Phosphatase 107 Total Protein 6.0 L Albumin 3.4 L Quality VTE Prophylaxis VTE prophylaxis: pharmacologic ordered
--- NOTE | 2025-02-23 10:22 | PCFNICU ---
ICU Rounding Note: Pt current nutrition is NPO. Nutrition recommendation: Speech consult to clear for PO intake Last recorded weight is 66.2 kg. Bowel Motility: +1 BM 02/23 Labs Reviewed: Hgb 9.8, Hct 32, Alb 3.4, Cre 1.02 Meds Noted: Protonix, Zofran Skin: No skin issues Additional Notes: Extubated and speech consult is placed to clear for PO. Plan for patient to go home on hospice. Continue to monitor. Following daily in ICU rounds. Monitor labs, tube feeding tolerance, weights, meds output, plan of care Daily rounds. Reassess Saturday/Fridays.
--- NOTE | 2025-02-23 11:16 | P.DS_ITS ---
DS: Admitting Diagnosis Discharge Date 02/23/2025 Admitting Diagnosis Acute kidney injury DS: Discharge Diagnosis Discharge Diagnosis (1) Hypoxic respiratory failure: Code(s): J96.91 - Respiratory failure, unspecified with hypoxia Status: Acute (2) Pneumonia: Code(s): J18.9 - Pneumonia, unspecified organism Status: Acute (3) Adenocarcinoma of left lung, stage 4: Code(s): C34.92 - Malignant neoplasm of unspecified part of left bronchus or lung Status: Chronic Assessment and Plan: Follows with Dr. Acosta (oncologist) patient has been on Keytruda -Mets to bone and brain (4) Acute kidney injury superimposed on CKD: Code(s): N17.9 - Acute kidney failure, unspecified; N18.9 - Chronic kidney disease, unspecified Status: Acute (5) Diarrhea: Qualifiers: Diarrhea type: presumed infectious Qualified Code(s): R19.7 - Diarrhea, unspecified Code(s): R19.7 - Diarrhea, unspecified Status: Acute (6) Electrolyte abnormality: Code(s): E87.8 - Other disorders of electrolyte and fluid balance, not elsewhere classified Status: Acute (7) Anemia: Code(s): D64.9 - Anemia, unspecified Status: Acute (8) Cardiomyopathy: Code(s): I42.9 - Cardiomyopathy, unspecified Status: Acute DS: Summary Hospital Course Hospital Course: 64-year-old female with stage IV lung adenocarcinoma with 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 She was sent from her oncologist's office when lab work showed elevated creatinine she was admitted to the floor and started on IV fluid. She was also diagnosed with UTI and was started on antibiotic. She had chronic d iarrhea and was seen by GI. On 02/18 patient decided to go home on hospice care but later developed respiratory failure and hypoxia. She changed her mind and became full code and was intubated and transferred to ICU. She was started on broad-spectrum antibiotics and was diuresed with Lasix. She was also seen by Nephrology for her acute kidney injury and CKD echo showed cardiomyopathy and patient was evaluated by Cardiology who recommended conservative management. Patient was extubated on 02/22. Post extubation patient requested to be discharged home. Patient lives with her 2 granddaughters. Initially she wanted to go back on hospice as she had decided earlier but requested to be full code. We had long discussion with the patient and 2 granddaughters I spoke to her this morning and try to explained the purpose and meaning of hospice care. She then met with animal care taker and hospice service Mariana. She now has decided to go home on hospice as she initially intended and she understands that purpose of hospice is to be at home and treatment of symptoms while she has underlying incurable medical problems including stage IV cancer and she will eventually . She states that she prefers to at home in peace with her dog and grandchildren rotten [id number]. She has decided to become DNR DNI and does not want CPR or intubation in the event of cardiac arrest or respiratory failure. Patient will be discharged today to home with hospice care provided by [facility]. Status at Discharge Functional status at discharge: bed bound Time Spent with Patient Time attestation: Total time spent providing and/or coordinating discharge services: Exam Narrative: General: Alert awake and in no distress HEENT:? Pupils are equal and reactive, sclerae is clear Neck:? Supple Respiratory:? Coarse breath sounds right greater than left, adequate air entry, no wheezing Cardiac:? S1-S2 is normal, regular rate and rhythm Abdomen:? Soft, nontender, nondistended, hypoactive bowel sounds Extremities:? Bilateral upper extremity edema right greater than left, trace edema bilateral lower extremities Neuro:? AO x3, follows commands with all extremities Skin:? No skin lesions noted Psych:? Normal speech and affect DS: Data Data Completed and Pending Labs on day of discharge: Labs from last 24 hours 02/23/25 02/23/25 02/22/25 05:20 04:53 23:28 WBC 19.3 H RBC 3.30 L Hgb 9.8 L Hct 32.0 L MCV 97.0 MCH 29.7 MCHC 30.6 L RDW 16.6 H Plt Count 248 MPV 9.5 Immature Gran % (Auto) 6.2 H Neut % (Auto) 72.4 Lymph % (Auto) 12.6 L [place] % (Auto) 7.8 Eos % (Auto) 0.7 Baso % (Auto) 0.3 Lymph # (Auto) 2.42 [place] # (Auto) 1.5 H Eos # (Auto) 0.1 Baso # (Auto) 0.1 Abs Immat Gran (auto) 1.19 H Absolute Neuts (auto) 14.0 H Absolute Nucleated RBC 0.000 Nucleated RBC % 0.0 Puncture Site Left brachial ABG pH 7.533 H* ABG pCO2 35.5 ABG pO2 69.4 L ABG PO2/FiO2 Ratio 2.48 ABG HCO3 29.2 H ABG O2 Saturation 95.7 ABG O2 Content 14.6 L ABG Base Excess 6.4 A-a Gradient 88.4 Oxyhemoglobin 94.2 Carboxyhemoglobin 0.2 Methemoglobin 0.1 Reduced Hemoglobin 5.5 H Total Hemoglobin 11.0 L O2 Delivery Device Nasal cannula O2 Liters/Min 2.0 Minute Volume Vent Rate Vent Mode FiO2 28 Tidal Volume PEEP Peak Inspir Pressure Pressure Support Sodium 140 Potassium 4.1 Chloride 104 Carbon Dioxide 32 H Anion Gap 4 BUN 15 Creatinine 1.02 H Estim Creat Clear Calc 43 Estimated GFR 54 L Glucose 75 POC Capillary Glucose 76 Calcium 8.1 L Phosphorus 2.7 Magnesium 1.7 Total Bilirubin 0.3 AST 39 H ALT 19 Alkaline Phosphatase 107 Total Protein 6.0 L Albumin 3.4 L 02/22/25 02/22/25 18:07 14:05 WBC RBC Hgb Hct MCV MCH MCHC RDW Plt Count MPV Immature Gran % (Auto) Neut % (Auto) Lymph % (Auto) [place] % (Auto) Eos % (Auto) Baso % (Auto) Lymph # (Auto) [place] # (Auto) Eos # (Auto) Baso # (Auto) Abs Immat Gran (auto) Absolute Neuts (auto) Absolute Nucleated RBC Nucleated RBC % Puncture Site Left radial ABG pH 7.590 H* ABG pCO2 32.4 L ABG pO2 80.7 ABG PO2/FiO2 Ratio 2.69 ABG HCO3 30.4 H ABG O2 Saturation 97.4 ABG O2 Content 14.7 L ABG Base Excess 8.5 A-a Gradient 95.1 Oxyhemoglobin 96.1 Carboxyhemoglobin Methemoglobin Reduced Hemoglobin Total Hemoglobin 10.8 L O2 Delivery Device Ventilator O2 Liters/Min Not Reportable Minute Volume Not Reportable Vent Rate Not Reportable Vent Mode Spontaneous FiO2 30 Tidal Volume Not Reportable PEEP 5 Peak Inspir Pressure Not Reportable Pressure Support 8 Sodium Potassium Chloride Carbon Dioxide Anion Gap BUN Creatinine Estim Creat Clear Calc Estimated GFR Glucose POC Capillary Glucose 114 H Calcium Phosphorus Magnesium Total Bilirubin AST ALT Alkaline Phosphatase Total Protein Albumin Preliminary micro results at discharge 02/18/25 21:42 Blood Culture - Preliminary Blood 02/19/25 00:05 Blood Culture - Preliminary Blood Discharge Plan Discharge Attending physician on discharge: Yousuf Faulkner Consulting providers: Camden Rizvi; Kenneth Murray Discharging Clinician: Yousuf Faulkner Patient Disposition: Hospice - Home Activity: as tolerated Patient Language: Guine[place] Stand Alone Forms: General Discharge Information Discharge Medications: Continued ondansetron 8 mg Tablet,Disintegrating 8 mg PO Q8H dexamethasone 4 mg Tablet 4 mg PO BID folic acid 1 mg Tablet 1 mg PO DAILY calcium 500 mg Tablet 500 mg PO BID Patient Comments: . B12 100 mcg 100 mcg PO DAILY Patient Comments: ...... ferrous sulfate [iron] 325 mg (65 mg iron) tablet 325 mg PO DAILY Lidocaine-Prilocaine 1 dose topical PRN PRN (Reason: to numb port 30 min before access) potassium chloride 20 mEq/15 mL liquid 20 meq PO BID losartan 50 mg tablet 50 mg PO DAILY Qty: 90 1RF hydrocodone-acetaminophen 5-325 mg tablet 1 tablet PO Q12H PRN (Reason: pain) Qty: 60 0RF lansoprazole 30 mg capsule,delayed release(DR/EC) 30 mg PO DAILY Saccharomyces boulardii 500 mg 500 mg PO DAILY loperamide 2 mg Capsule 2 mg PO TID Qty: 20 0RF Prevalite 4 gram Powder In Packet 4 g PO QAM@1000 Qty: 30 0RF Date of admission: 02/17/25 09:43 Primary Care Provider: Amy Saldivar Admitting Provider: Orquidea Pickett Attending physician on admission: Orquidea Pickett Condition: Serious Quality VTE Prophylaxis VTE prophylaxis: pharmacologic ordered
--- NOTE | 2025-02-23 11:33 | PCSTNOTE ---
St spoke with VIVEK Bah and BSE no longer recommended due to pt going home on hospice today, 02/23. Thank you.
[2025-02-25 01:24] LABS: Neutral Fat, Stool Normal (Normal); pH Stool 7.1 pH units (7.0-7.5)
[2025-02-25 14:34] LABS: Pancreatic Elastase, Stool. 252 mcg/g (>200)
[2025-02-26 22:24] LABS: Chloride, Feces 27 mEq/L; Potassium, Feces 86.5 mEq/L; Sodium, Feces 17 mEq/L
== END 2025-02-23 18:27 | disposition hospice, home (50) | DRG 682 ==
LOC: ANHED 14:42 → ANHIMU 15:23 → ANH3MEDSUR 02-17 22:45 → ANHICU 02-18 18:19
PROVIDERS: Internal Medicine; Internal Medicine Gastroenterology; Internal Medicine Nephrology; Student in an Organized Health Care Education/Training Program; Admitting Provider Internal Medicine; Emergency Provider Emergency Medicine; PCP Family Medicine; Visit Provider Internal Medicine
DX: N17.9 Acute kidney failure, unspecified (principal); I50.21 Acute systolic (congestive) heart failure; J18.9 Pneumonia, unspecified organism; J96.01 Acute respiratory failure with hypoxia; C34.92 Malignant neoplasm of unspecified part of left bronchus or lung; C79.51 Secondary malignant neoplasm of bone; C79.31 Secondary malignant neoplasm of brain; E87.1 Hypo-osmolality and hyponatremia; E87.21 Acute metabolic acidosis; N39.0 Urinary tract infection, site not specified; I42.9 Cardiomyopathy, unspecified; J90 Pleural effusion, not elsewhere classified; I12.9 Hypertensive chronic kidney disease with stage 1 through stage 4 chronic kidney disease, or unspecified chronic kidney disease; N18.31 Chronic kidney disease, stage 3a; E83.51 Hypocalcemia; K52.839 Microscopic colitis, unspecified; I95.9 Hypotension, unspecified; J45.909 Unspecified asthma, uncomplicated; E86.0 Dehydration; Z87.891 Personal history of nicotine dependence; Z90.49 Acquired absence of other specified parts of digestive tract; Z90.710 Acquired absence of both cervix and uterus; Z51.5 Encounter for palliative care
CPT/HCPCS: 31500; 36415; 36430; 36569; 36600; 70450; 71045; 71046; 71250; 74176; 76775; 80048; 80053; 80202; 81001; 82375; 82438; 82550; 82565; 82570; 82653; 82705; 82805; 82948; 83050; 83605; 83735; 84100; 84132; 84156; 84300; 84302; 84311; 84443; 84478; 84484; 84540; 85014; 85018; 85025; 85027; 85610; 85730; 85999; 86747; 86850; 86900; 86901; 86923; 87040; 87045; 87070; 87205; 87427; 87449; 87493; 87641; 89055; 93005; 93970; 94002; 94003; 94640; 96361; 96365; 96367; 96375; 99285; A9270; C1751; C8929; G0378; J0330; J0612; J0613; J0696; J1642; J1644; J1938; J2003; J2185; J2250; J2270; J2470; J2704; J3370; J3475; J3480; J7030; J7040; J7050; J7070; J8540; P9016; P9047; Q9957